=== PATIENT | female | born 1935 | race Caucasian/White ===

== ENCOUNTER → 2016-08-06 | Outpatient (REF) | payer MEDICARE, OTHER ==
[2016-08-06 13:03] LABS: EOS # 0.2 K/mm3 (0.0-0.50); EOS % 3.3 % (0.0-3.0); LARGE UNSTAINED CELL # 0.1 K/mm3 (0.0-0.4); LARGE UNSTAINED CELL % 1.7 % (0.0-4.0); LYMPH # 1.8 K/mm3 (1.5-4.5); MEAN CORPUSCULAR VOLUME 97.1 fl (80.0-96.0); MONO # 0.3 K/mm3 (0.0-0.8); MONO % 5.6 % (0.0-5.0); NEUTROPHILS # 2.3 K/mm3 (1.8-7.7); NEUTROPHILS % 50.4 % (36.0-66.0); PLATELET COUNT, AUTOMATED 175 k/mm3 (150-450); RED CELL DISTRIBUTION WIDTH 13.2 % (11.5-14.5); WHITE BLOOD COUNT 4.5 K/mm3 (4.0-10.0)
[2016-08-06 13:33] LABS: ALBUMIN 3.8 GM/DL (3.2-5.2); ALBUMIN/GLOBULIN RATIO 1.31 (1.00-1.93); ALKALINE PHOSPHATASE 73 U/L (45-117); ALT/SGPT 33 U/L (12-78); ANION GAP 9 MEQ/L (8-16); AST/SGOT 19 U/L (15-37); BILIRUBIN,DIRECT 0.4 MG/DL (0.0-0.2); BILIRUBIN,TOTAL 1.7 MG/DL (0.2-1.0); BLOOD UREA NITROGEN 12 MG/DL (7-18); CALCIUM LEVEL 8.7 MG/DL (8.8-10.2); CARBON DIOXIDE LEVEL 25 MEQ/L (21-32); CHLORIDE LEVEL 108 MEQ/L (98-107); CHOLESTEROL LEVEL 135 MG/DL (<200); CREATININE FOR GFR 0.69 MG/DL (0.55-1.02); GLOMERULAR FILTRATION RATE > 60.0 (>32); GLUCOSE, FASTING 98 MG/DL (83-110); MAGNESIUM LEVEL 2.1 MG/DL (1.8-2.4); POTASSIUM SERUM 3.9 MEQ/L (3.5-5.1); SODIUM LEVEL 142 MEQ/L (136-145); TOTAL PROTEIN 6.7 GM/DL (6.4-8.2); TRIGLYCERIDES LEVEL 158 MG/DL (<150)
== END ==
LOC: M LABDRAW1 12:15
PROVIDERS: ATTEND Internal Medicine
DX: I10 Essential (primary) hypertension (principal); E78.00 Pure hypercholesterolemia, unspecified; R73.09 Other abnormal glucose

== ENCOUNTER → 2016-11-04 | Outpatient (REF) | payer MEDICARE, OTHER ==
[2016-11-04 17:34] LABS: BLOOD UREA NITROGEN 13 MG/DL (7-18); CREATININE FOR GFR 0.69 MG/DL (0.55-1.02); GLOMERULAR FILTRATION RATE > 60.0 (>32)
== END ==
LOC: M LABDRAW1 15:52
PROVIDERS: ATTEND Psychiatry & Neurology Neurology
DX: I10 Essential (primary) hypertension (principal); E55.9 Vitamin D deficiency, unspecified

== ENCOUNTER → 2017-01-14 | Outpatient (REF) | payer MEDICARE, OTHER ==
[2017-01-14 12:23] LABS: BASO # 0.1 10^3/uL (0.0-0.2); BASO % 1.2 % (0.0-1.0); EOS # 0.2 10^3/uL (0.0-0.50); EOS % 3.9 % (0.0-3.0); IMMATURE GRANULOCYTE % 0.2 % (0-0); MEAN CORPUSCULAR HEMOGLOBIN 32.4 pg (27.0-33.0); MEAN CORPUSCULAR HGB CONC 33.7 g/dl (32.0-36.5); MEAN CORPUSCULAR VOLUME 96.2 fl (80.0-96.0); MONO # 0.3 10^3/uL (0.0-0.8); MONO % 7.6 % (0.0-5.0); NEUTROPHILS # 1.8 10^3/uL (1.8-7.7); NEUTROPHILS % 42.1 % (36.0-66.0); PLATELET COUNT, AUTOMATED 157 10^3/uL (150-450); RED CELL DISTRIBUTION WIDTH 12.8 % (11.5-14.5); WHITE BLOOD COUNT 4.3 10^3/uL (4.0-10.0)
[2017-01-14 12:40] LABS: PLT CLUMPS? POS FLAG; POS COUNT POS FLAG
[2017-01-14 13:25] LABS: ALBUMIN 3.8 GM/DL (3.2-5.2); ALBUMIN/GLOBULIN RATIO 1.06 (1.00-1.93); ALKALINE PHOSPHATASE 67 U/L (45-117); ALT/SGPT 22 U/L (12-78); ANION GAP 6 MEQ/L (8-16); AST/SGOT 16 U/L (15-37); BILIRUBIN,TOTAL 1.5 MG/DL (0.2-1.0); BLOOD UREA NITROGEN 15 MG/DL (7-18); CALCIUM LEVEL 9.4 MG/DL (8.8-10.2); CARBON DIOXIDE LEVEL 27 MEQ/L (21-32); CHLORIDE LEVEL 109 MEQ/L (98-107); CHOLESTEROL LEVEL 141 MG/DL (<200); CREATININE FOR GFR 0.67 MG/DL (0.55-1.02); GLOMERULAR FILTRATION RATE > 60.0 (>32); GLUCOSE, FASTING 92 MG/DL (83-110); SODIUM LEVEL 142 MEQ/L (136-145); TOTAL PROTEIN 7.4 GM/DL (6.4-8.2); TRIGLYCERIDES LEVEL 158 MG/DL (<150)
== END ==
LOC: M LABDRAW1 09:39
PROVIDERS: ATTEND Internal Medicine
DX: E78.00 Pure hypercholesterolemia, unspecified (principal); E80.7 Disorder of bilirubin metabolism, unspecified; I10 Essential (primary) hypertension; M19.90 Unspecified osteoarthritis, unspecified site; Z79.899 Other long term (current) drug therapy

== ENCOUNTER → 2017-08-24 | Outpatient (REF) | payer MEDICARE, OTHER ==
[2017-08-24 12:41] LABS: BASO # 0.1 10^3/uL (0.0-0.2); BASO % 1.4 % (0.0-1.0); EOS # 0.1 10^3/uL (0.0-0.50); EOS % 2.1 % (0.0-3.0); HEMOGLOBIN 14.8 g/dl (12.0-15.5); IMMATURE GRANULOCYTE % 0.2 % (0-3.0); LYMPH # 1.6 10^3/uL (1.5-4.5); LYMPH % 38.4 % (24.0-44.0); MEAN CORPUSCULAR HEMOGLOBIN 31.9 pg (27.0-33.0); MEAN CORPUSCULAR HGB CONC 33.6 g/dl (32.0-36.5); MEAN CORPUSCULAR VOLUME 94.8 fl (80.0-96.0); MONO # 0.3 10^3/uL (0.0-0.8); MONO % 6.4 % (0.0-5.0); NEUTROPHILS # 2.2 10^3/uL (1.8-7.7); NEUTROPHILS % 51.5 % (36.0-66.0); PLATELET COUNT, AUTOMATED 165 10^3/uL (150-450); RED BLOOD COUNT 4.64 10^6/uL (4.00-5.40); RED CELL DISTRIBUTION WIDTH 13.2 % (11.5-14.5); WHITE BLOOD COUNT 4.2 10^3/uL (4.0-10.0)
[2017-08-24 12:51] LABS: AMORPHOUS SEDIMENT SMALL (NEGATIVE); APPEARANCE, URINE CLOUDY (CLEAR); BACTERIA, URINE AUTO 1+ (NEGATIVE); BILIRUBIN, URINE AUTO NEGATIVE (NEGATIVE); BLOOD, URINE BLOOD NEGATIVE (NEGATIVE); COLOR, URINE YELLOW (YELLOW); GLUCOSE, URINE (UA) AUTO NEGATIVE (NEGATIVE); KETONE, URINE AUTO NEGATIVE (NEGATIVE); LEUKOCYTE ESTERASE, URINE AUTO TRACE (NEGATIVE); MUCUS, URINE SMALL (NEGATIVE); NITRITE, URINE AUTO POSITIVE (NEGATIVE); PROTEIN, URINE AUTO NEGATIVE (NEGATIVE); RBC, URINE AUTO 3 /HPF (0-3); SQUAMOUS EPITHELIAL CELL UR AU 0 /HPF (0-6); UROBILINOGEN, URINE AUTO 0.2 mg/dL (0.0-2.0); WBC, URINE AUTO 8 /HPF (0-3)
[2017-08-24 17:49] LABS: ALBUMIN 4.1 GM/DL (3.2-5.2); ALBUMIN/GLOBULIN RATIO 1.11 (1.00-1.93); ALKALINE PHOSPHATASE 64 U/L (45-117); ALT/SGPT 25 U/L (12-78); ANION GAP 7 MEQ/L (8-16); AST/SGOT 20 U/L (7-37); BILIRUBIN,DIRECT 0.4 MG/DL (0.0-0.2); BILIRUBIN,TOTAL 2.6 MG/DL (0.2-1.0); BLOOD UREA NITROGEN 11 MG/DL (7-18); CALCIUM LEVEL 9.1 MG/DL (8.8-10.2); CARBON DIOXIDE LEVEL 25 MEQ/L (21-32); CHLORIDE LEVEL 109 MEQ/L (98-107); CHOLESTEROL LEVEL 163 MG/DL (<200); CREATININE FOR GFR 0.63 MG/DL (0.55-1.30); ESTIMATED AVERAGE GLUCOSE 128 MG/DL (60-110); GLOMERULAR FILTRATION RATE > 60.0 (>32); GLUCOSE, FASTING 116 MG/DL (70-100); HDL CHOLESTEROL 58 MG/DL (>40); HEMOGLOBIN A1c 6.1 %; LDL CHOLESTEROL 69.2 MG/DL (<100); MAGNESIUM LEVEL 2.3 MG/DL (1.8-2.4); NON-HDL-C 105 MG/DL; POTASSIUM SERUM 4.1 MEQ/L (3.5-5.1); SODIUM LEVEL 141 MEQ/L (136-145); TOTAL PROTEIN 7.8 GM/DL (6.4-8.2); TRIGLYCERIDES LEVEL 179 MG/DL (<150)
[2017-08-24 21:10] LABS: POS COUNT POS FLAG
== END ==
LOC: M LABDRAW1 11:41
DX: R73.09 Other abnormal glucose (principal); I10 Essential (primary) hypertension; E78.00 Pure hypercholesterolemia, unspecified; E80.7 Disorder of bilirubin metabolism, unspecified; M81.0 Age-related osteoporosis without current pathological fracture
CPT/HCPCS: 83735

== ENCOUNTER → 2017-12-21 | Outpatient (REF) | payer MEDICARE, OTHER ==
[2017-12-21 12:18] LABS: BASO # 0.1 10^3/uL (0.0-0.2); BASO % 1.2 % (0.0-1.0); EOS # 0.1 10^3/uL (0.0-0.50); EOS % 2.7 % (0.0-3.0); HEMATOCRIT 43.1 % (36.0-47.0); HEMOGLOBIN 14.3 g/dl (12.0-15.5); LYMPH # 1.5 10^3/uL (1.5-4.5); LYMPH % 35.9 % (24.0-44.0); MEAN CORPUSCULAR HEMOGLOBIN 32.6 pg (27.0-33.0); MEAN CORPUSCULAR HGB CONC 33.2 g/dl (32.0-36.5); MEAN CORPUSCULAR VOLUME 98.4 fl (80.0-96.0); MONO # 0.4 10^3/uL (0.0-0.8); MONO % 8.5 % (0.0-5.0); NEUTROPHILS # 2.1 10^3/uL (1.8-7.7); NEUTROPHILS % 51.7 % (36.0-66.0); PLATELET COUNT, AUTOMATED 129 10^3/uL (150-450); RED BLOOD COUNT 4.38 10^6/uL (4.00-5.40); RED CELL DISTRIBUTION WIDTH 12.9 % (11.5-14.5); WHITE BLOOD COUNT 4.1 10^3/uL (4.0-10.0)
[2017-12-21 12:36] LABS: POS COUNT POS FLAG
[2017-12-21 17:59] LABS: ALKALINE PHOSPHATASE 63 U/L (45-117); ALT/SGPT 25 U/L (12-78); ANION GAP 9 MEQ/L (8-16); AST/SGOT 19 U/L (7-37); BILIRUBIN,TOTAL 1.7 MG/DL (0.2-1.0); BLOOD UREA NITROGEN 14 MG/DL (7-18); CALCIUM LEVEL 9.7 MG/DL (8.8-10.2); CARBON DIOXIDE LEVEL 24 MEQ/L (21-32); CHLORIDE LEVEL 111 MEQ/L (98-107); CREATININE FOR GFR 0.61 MG/DL (0.55-1.30); GLOMERULAR FILTRATION RATE > 60.0 (>32); GLUCOSE, FASTING 100 MG/DL (70-100); POTASSIUM SERUM 4.5 MEQ/L (3.5-5.1); SODIUM LEVEL 144 MEQ/L (136-145)
[2017-12-21 18:00] LABS: ALBUMIN/GLOBULIN RATIO 1.25 (1.00-1.93); BILIRUBIN,DIRECT 0.3 MG/DL (0.0-0.2); CHOLESTEROL LEVEL 166 MG/DL (<200); CHOLESTEROL RISK RATIO 3.254 (<5); HDL CHOLESTEROL 51 MG/DL (>40); LDL CHOLESTEROL 71 MG/DL (<100); MAGNESIUM LEVEL 2.4 MG/DL (1.8-2.4); NON-HDL-C 115 MG/DL; TOTAL PROTEIN 7.2 GM/DL (6.4-8.2); TRIGLYCERIDES LEVEL 220 MG/DL (<150)
== END ==
LOC: M LABDRAW1 09:47
DX: E78.00 Pure hypercholesterolemia, unspecified (principal); D64.9 Anemia, unspecified; I10 Essential (primary) hypertension; E83.41 Hypermagnesemia
CPT/HCPCS: 83735

== ENCOUNTER → 2018-08-22 | Outpatient (REF) | payer MEDICARE, OTHER ==
[2018-08-22 12:03] LABS: BASO # 0.1 10^3/uL (0.0-0.2); BASO % 1.7 % (0.0-1.0); EOS # 0.1 10^3/uL (0.0-0.50); EOS % 2.6 % (0.0-3.0); HEMATOCRIT 42.2 % (36.0-47.0); HEMOGLOBIN 14.3 g/dl (12.0-15.5); LYMPH # 1.5 10^3/uL (1.5-4.5); LYMPH % 32.6 % (24.0-44.0); MEAN CORPUSCULAR HEMOGLOBIN 33.4 pg (27.0-33.0); MEAN CORPUSCULAR HGB CONC 33.9 g/dl (32.0-36.5); MEAN CORPUSCULAR VOLUME 98.6 fl (80.0-96.0); MONO # 0.3 10^3/uL (0.0-0.8); MONO % 5.7 % (0.0-5.0); NEUTROPHILS # 2.6 10^3/uL (1.8-7.7); NEUTROPHILS % 57.2 % (36.0-66.0); PLATELET COUNT, AUTOMATED 172 10^3/uL (150-450); RED BLOOD COUNT 4.28 10^6/uL (4.00-5.40); WHITE BLOOD COUNT 4.6 10^3/uL (4.0-10.0)
[2018-08-22 12:13] LABS: ALBUMIN 3.7 GM/DL (3.2-5.2); ALT/SGPT 22 U/L (12-78); BILIRUBIN,DIRECT 0.4 MG/DL (0.0-0.2); BILIRUBIN,TOTAL 2.3 MG/DL (0.2-1.0); BLOOD UREA NITROGEN 11 MG/DL (7-18); CALCIUM LEVEL 8.9 MG/DL (8.8-10.2); CARBON DIOXIDE LEVEL 26 MEQ/L (21-32); CHLORIDE LEVEL 105 MEQ/L (98-107); CHOLESTEROL LEVEL 154 MG/DL (<200); CHOLESTEROL RISK RATIO 3.019 (<5); CPK CREATINE PHOSPHOKINASE 109 U/L (26-192); CREATININE FOR GFR 0.68 MG/DL (0.55-1.30); GLOMERULAR FILTRATION RATE > 60.0 (>32); GLUCOSE, FASTING 98 MG/DL (70-100); HDL CHOLESTEROL 51 MG/DL (>40); LDL CHOLESTEROL 63 MG/DL (<100); MAGNESIUM LEVEL 2.3 MG/DL (1.8-2.4); NON-HDL-C 103 MG/DL; POTASSIUM SERUM 4.3 MEQ/L (3.5-5.1); SODIUM LEVEL 140 MEQ/L (136-145); TOTAL PROTEIN 7.4 GM/DL (6.4-8.2); TRIGLYCERIDES LEVEL 202 MG/DL (<150)
[2018-08-22 16:30] LABS: APPEARANCE, URINE CLOUDY (CLEAR); BACTERIA, URINE AUTO 3+ (NEGATIVE); BILIRUBIN, URINE AUTO NEGATIVE (NEGATIVE); BLOOD, URINE BLOOD NEGATIVE (NEGATIVE); COLOR, URINE YELLOW (YELLOW); GLUCOSE, URINE (UA) AUTO NEGATIVE (NEGATIVE); KETONE, URINE AUTO NEGATIVE (NEGATIVE); LEUKOCYTE ESTERASE, URINE AUTO 1+ (NEGATIVE); MUCUS, URINE SMALL (NEGATIVE); NITRITE, URINE AUTO POSITIVE (NEGATIVE); PROTEIN, URINE AUTO NEGATIVE (NEGATIVE); RBC, URINE AUTO 2 /HPF (0-3); SPECIFIC GRAVITY URINE AUTO 1.013 (1.002-1.035); SQUAMOUS EPITHELIAL CELL UR AU 0 /HPF (0-6); UROBILINOGEN, URINE AUTO 0.2 mg/dL (0.0-2.0); WBC, URINE AUTO 31 /HPF (0-3)
== END ==
LOC: M LABDRAW1 11:39
PROVIDERS: ATTEND Internal Medicine
DX: G35 Multiple sclerosis (principal); E80.4 Gilbert syndrome; I10 Essential (primary) hypertension; E83.41 Hypermagnesemia; E03.9 Hypothyroidism, unspecified; E78.00 Pure hypercholesterolemia, unspecified; R32 Unspecified urinary incontinence

== ENCOUNTER → 2018-12-18 | Outpatient (REF) | payer MEDICARE, OTHER ==
[2018-12-18 12:48] LABS: ALBUMIN 3.8 GM/DL (3.2-5.2); ALT/SGPT 22 U/L (12-78); BILIRUBIN,DIRECT 0.3 MG/DL (0.0-0.2); BILIRUBIN,TOTAL 1.6 MG/DL (0.2-1.0); BLOOD UREA NITROGEN 13 MG/DL (7-18); CALCIUM LEVEL 9.5 MG/DL (8.8-10.2); CARBON DIOXIDE LEVEL 24 MEQ/L (21-32); CHLORIDE LEVEL 109 MEQ/L (98-107); CREATININE FOR GFR 0.67 MG/DL (0.55-1.30); GLOMERULAR FILTRATION RATE > 60.0 (>32); GLUCOSE, FASTING 94 MG/DL (70-100); POTASSIUM SERUM 4.4 MEQ/L (3.5-5.1); SODIUM LEVEL 141 MEQ/L (136-145); TOTAL PROTEIN 6.9 GM/DL (6.4-8.2)
[2018-12-18 12:55] LABS: BASO # 0.1 10^3/uL (0.0-0.2); BASO % 1.1 % (0.0-1.0); EOS # 0.1 10^3/uL (0.0-0.5); EOS % 2.4 % (0.0-3.0); HEMATOCRIT 39.2 % (36.0-47.0); HEMOGLOBIN 13.2 g/dl (12.0-15.5); LYMPH # 2.1 10^3/uL (1.5-5.0); LYMPH % 45.8 % (24.0-44.0); MEAN CORPUSCULAR HEMOGLOBIN 32.8 pg (27.0-33.0); MEAN CORPUSCULAR HGB CONC 33.7 g/dl (32.0-36.5); MEAN CORPUSCULAR VOLUME 97.3 fl (80.0-96.0); MONO # 0.4 10^3/uL (0.0-0.8); MONO % 7.7 % (0.0-5.0); PLATELET COUNT, AUTOMATED 164 10^3/uL (150-450); RED BLOOD COUNT 4.03 10^6/uL (4.00-5.40); WHITE BLOOD COUNT 4.5 10^3/uL (4.0-10.0)
== END ==
LOC: M LABDRAW1 11:40
PROVIDERS: ATTEND Internal Medicine
DX: I10 Essential (primary) hypertension (principal)

== ENCOUNTER 2020-01-08 08:15 | Inpatient (IN) | payer MEDICARE, OTHER ==
[2020-01-08] VITALS (15 sets, daily range): BP systolic 68–122; BP diastolic 39–70
[~2020-01-08] VITALS: Ht 157.5 cm; Wt 74.0 kg
[~2020-01-08 08:15] MED LIST: PHENYLephrine HCL 500 MCG/5 ML (100MCG/ML) SYRINGE (J2370) ONE; ePHEDrine SULFATE 25 MG/5 ML(5MG/ML) SYRINGE ONE
--- NOTE | 2020-01-08 08:59 | REPVR ---
PROCEDURE INFORMATION: Exam: XR Chest, 1 View Exam date and time: 01/08/2020 8:44 AM Age: 84 years old Clinical indication: Other: General weekness; Additional info: Trauma TECHNIQUE: Imaging protocol: XR of the chest Views: 1 view. COMPARISON: No relevant prior studies available. FINDINGS: Lungs: Low lung volumes with mild bibasilar atelectasis. No consolidation. Pleural space: No significant pleural effusions. No pneumothorax. Heart/Mediastinum: Cardiac size is normal. Thoracic atherosclerosis. Bones/joints: Osteopenia. Degenerative changes. No acute fracture. Soft tissues: Surgical clips right axilla. Marcus right upper quadrant. IMPRESSION: Hypoventilatory change with mild bibasilar atelectasis. Electronically signed by: Jose Almonte On 01/08/2020 08:59:11 AM
[2020-01-08] MEDS ORDERED: NS 500 ML IV ONE (09:15)
[2020-01-08 09:24] LABS: HEMATOCRIT 39.4 % (36.0-47.0); HEMOGLOBIN 12.8 g/dl (12.0-15.5); MEAN CORPUSCULAR HEMOGLOBIN 32.7 pg (27.0-33.0); MEAN CORPUSCULAR HGB CONC 32.5 g/dl (32.0-36.5); MEAN CORPUSCULAR VOLUME 100.8 fl (80.0-96.0); PLATELET COUNT, AUTOMATED 100 10^3/uL (150-450); RED BLOOD COUNT 3.91 10^6/uL (4.00-5.40); WHITE BLOOD COUNT 16.1 10^3/uL (4.0-10.0)
[2020-01-08 09:52] LABS: LYMPHOCYTES 5 % (16-44); METAMYELOCYTES 1 % (0-0); MONOCYTES 2 % (0-5); NEUTROPHILS 80 % (28-66)
[2020-01-08 09:54] LABS: PLATELET ESTIMATE DECREASED (NORMAL)
[2020-01-08 10:00] LABS: ALBUMIN 3.3 GM/DL (3.2-5.2); BILIRUBIN,DIRECT 0.6 MG/DL (0.0-0.2); BILIRUBIN,TOTAL 2.9 MG/DL (0.2-1.0); CALCIUM LEVEL 9.9 MG/DL (8.8-10.2); CK-MB VALUE MASS 5.8 NG/ML (<3.6); CREATININE FOR GFR 1.21 MG/DL (0.55-1.30); GLOMERULAR FILTRATION RATE 45.1 (>32); MB/CK RELATIVE INDEX 0.71 (< OR =4); POTASSIUM SERUM 3.7 MEQ/L (3.5-5.1); TOTAL PROTEIN 7.2 GM/DL (6.4-8.2); TROPONIN I 0.25 NG/ML (< 0.10)
[2020-01-08 10:03] LABS: DOHLE BODIES 1+
[2020-01-08] MEDS ORDERED: cefTRIAXone SOD 2 GM in D5W MINI-BAG PLUS 50 ML IV ONE (10:15)
[2020-01-08] MEDS ORDERED: NS 1,000 ML IV ONE (10:15)
[2020-01-08] MEDS ORDERED: PRAV20TA2 PO (10:51)
[2020-01-08] MEDS ORDERED: TRAV04OPD OU (10:51)
[2020-01-08] MEDS ORDERED: ASPI81TA86 PO (10:51)
[2020-01-08] MEDS ORDERED: AMLO1TAB24 PO (10:51)
[2020-01-08] MEDS ORDERED: DORZ2SOL5 OU (10:51)
[2020-01-08] MEDS ORDERED: POTA10CA32 PO (10:51)
[2020-01-08] MEDS ORDERED: GABA-843 PO (10:51)
[2020-01-08] MEDS ORDERED: LOSA100T50 PO (10:51)
[2020-01-08] MEDS ORDERED: OXYB5TAB10 PO (10:51)
[2020-01-08] MEDS ORDERED: LOMO2.5T PO (10:51)
[2020-01-08] MEDS ORDERED: NITROGLYCERIN 2% OINT 1 GM *U/D* PKT As Ordered ONE (12:14)
[2020-01-08] MEDS ORDERED: NITROGLYCERIN 2% OINT 1 GM *U/D* PKT TOP ONE (12:15)
[2020-01-08] MEDS ORDERED: ISOVUE-370 76% 100ML VIAL As Ordered ONE (12:38)
[2020-01-08] MEDS ORDERED: NS 1,000 ML IV SCH (12:45)
[2020-01-08] MEDS ORDERED: NS 1,500 ML IV ONE (12:45)
--- NOTE | 2020-01-08 12:48 | ECGEPIP ---
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
[2020-01-08] MEDS ORDERED: PIPERACILLIN/TAZOBACTAM SOD 4.5 GM in D5W MINI-BAG PLUS 50 ML IV ONE (13:00)
--- NOTE | 2020-01-08 13:10 | REPVR ---
PROCEDURE INFORMATION: Exam: CT Angiography Chest With Contrast Exam date and time: 01/08/2020 12:40 PM Age: 84 years old Clinical indication: Shortness of breath; Additional info: R/O pe in setting of worsening respiratory status TECHNIQUE: Imaging protocol: Computed tomographic angiography of the chest with intravenous contrast. 3D rendering (Not supervised by radiologist): MIP and/or 3D reconstructed images were created by the technologist. Radiation optimization: All CT scans at this facility use at least one of these dose optimization techniques: automated exposure control; mA and/or kV adjustment per patient size (includes targeted exams where dose is matched to clinical indication); or iterative reconstruction. Contrast material: ISOVUE 370; Contrast volume: 100 ml; Contrast route: INTRAVENOUS (IV); COMPARISON: CR Chest, 1 view 01/08/2020 8:29 AM FINDINGS: Limitations: Variable motion, moderate inferiorly. Pulmonary arteries: No definite pulmonary embolus is identified, allowing for the motion. Artifact particularly degrades evaluation in the right lower lobe. Aorta: The thoracic aorta is nonaneurysmal. Atherosclerotic vascular calcifications are noted. Lungs: Mild dependent atelectasis and scattered scarring is present. The right middle lobe is partially collapsed, and there may be some airspace disease here. Pleural space: Unremarkable. No pneumothorax. No pleural effusion. Heart: Unremarkable. No cardiomegaly. No pericardial effusion. Lymph nodes: Unremarkable. No enlarged lymph nodes. Bones/joints: Degenerative changes involve the spine and shoulders. Soft tissues: Unremarkable. IMPRESSION: 1. No definite pulmonary embolus identified, allowing for motion which particularly affects evaluation of the right lower lobe. Depending on clinical suspicion, may consider followup attempt at CT or correlation with VQ scan. 2. Partial collapse of the right middle lobe with potential airspace disease relating to pneumonia. COMMENTS: Dedicated abdominal CT has been performed, and findings below the diaphragm will be reported separately. Electronically signed by: Richard Lynch On 01/08/2020 13:10:06 PM
--- NOTE | 2020-01-08 13:19 | REPVR ---
PROCEDURE INFORMATION: Exam: CT Abdomen And Pelvis With Contrast Exam date and time: 01/08/2020 12:40 PM Age: 84 years old Clinical indication: Bloating; Additional info: R/O mesenteric ischemia w/ abd bloating TECHNIQUE: Imaging protocol: Computed tomography of the abdomen and pelvis with intravenous contrast. Radiation optimization: All CT scans at this facility use at least one of these dose optimization techniques: automated exposure control; mA and/or kV adjustment per patient size (includes targeted exams where dose is matched to clinical indication); or iterative reconstruction. Contrast material: ISOVUE 370; Contrast volume: 100 ml; Contrast route: INTRAVENOUS (IV); COMPARISON: Abdomen, limited US 08/22/2014 9:14 AM FINDINGS: Liver: The liver demonstrates mild intrahepatic biliary ductal dilatation and contains a 13 mm cyst in its right lobe inferiorly. It appears otherwise unremarkable. Gallbladder and bile ducts: The gallbladder again contains stones, and is now seen to have calcifications along its wall. The common bile duct is prominent in caliber, measuring up to 2.2 cm, previously also dilated up to 1.8 cm. Pancreas: The pancreas demonstrates some fatty atrophy. It appears otherwise unremarkable. Spleen: Normal. No splenomegaly. Adrenals: Normal. No mass. Kidneys and ureters: The kidneys demonstrate cortical thinning. There is parapelvic cyst formation bilaterally, along with a 2 cm parenchymal cyst on the left. The left kidney also demonstrates mild hydronephrosis are, and there is a 9 x 5 x 3 mm stone at the ureteropelvic junction. The left nephrogram is mildly delayed, and there is mild asymmetric left perinephric stranding as well. Stomach and bowel: The unopacified small bowel is not significantly distended to suggest obstruction. No significant bowel wall thickening is evident. The large bowel is grossly unremarkable in appearance. Appendix: The appendix is not identified, but there are no inflammatory changes in its expected region. Intraperitoneal space: No free air or significant free fluid. Vasculature: The abdominal aorta is nonaneurysmal. Atherosclerotic vascular calcifications are noted. Lymph nodes: Unremarkable. No enlarged lymph nodes. Urinary bladder: The urinary bladder contains small gas. Reproductive: There has been hysterectomy. No gross adnexal abnormality is apparent, but ultrasound would be more appropriate in this regard. Bones/joints: Degenerative changes involve the spine and hips. There is a grade 1 spondylolisthesis at L4-L5, where there appears to have been right-sided laminotomy. Soft tissues: Surgical sutures are present along the anterior abdominal wall, the musculature of which is thinned. IMPRESSION: 1. Mild left-sided hydronephrosis with mild delay of the nephrogram secondary to a 9 mm stone at the ureteropelvic junction. 2. Cholelithiasis, as on 08/22/14, with calcifications in the gallbladder wall, which may be associated with increased risk of neoplasm. 3. Mildly increased extrahepatic biliary ductal dilatation, now with mild intrahepatic biliary ductal dilatation evident. Suggest dedicated evaluation for possible biliary obstruction. 4. Small gas in the urinary bladder, presumably relating to a recent catheterization. Confirm clinically. COMMENTS: See separate chest CT report for findings above the diaphragm. Electronically signed by: Richard Lynch On 01/08/2020 13:19:41 PM
--- NOTE | 2020-01-08 13:38 | REPVR ---
PROCEDURE INFORMATION: Exam: XR Chest, 1 View Exam date and time: 01/08/2020 1:02 PM Age: 84 years old Clinical indication: Condition or disease; Other: Rhabdomyosis, UTI, SOB; Additional info: Shortness of breath TECHNIQUE: Imaging protocol: XR of the chest Views: 1 view. COMPARISON: CR Chest, 1 view 01/08/2020 8:29 AM FINDINGS: Tubes, catheters and devices: Surgical clips again overlie the right axilla.Degenerative changes again involve the spine and shoulders. Lungs: There is mildly increasing atelectasis or infiltrate at the right base. Some streaky atelectasis is present at the left base. Pleural space: Unremarkable. No pleural effusion. No pneumothorax. Heart/Mediastinum: The cardiomediastinal silhouette is fairly stable in appearance. Bones/joints: Unremarkable. IMPRESSION: Mildly increasing right basilar atelectasis or infiltrate as compared with earlier the same day. Electronically signed by: Richard Lynch On 01/08/2020 13:38:03 PM
[2020-01-08 13:56] LABS: CK-MB VALUE MASS 4.4 NG/ML (<3.6); MB/CK RELATIVE INDEX 0.65 (< OR =4); TROPONIN I 0.16 NG/ML (< 0.10)
[2020-01-08] MEDS ORDERED: SODIUM CHLORIDE 0.9% 1000ML IV ONE (15:00)
[2020-01-08] MEDS ORDERED: VANCOMYCIN HCL 1,000 MG, VIAL MATE ADAPTER 1 EACH in D5W 250 ML IV SCH (16:00)
[2020-01-08] MEDS ORDERED: ACETAMINOPHEN 650 MG SUPP PR ONE (16:00)
[2020-01-08] MEDS ORDERED: VANCOMYCIN HCL 500 MG in D5W MINI-BAG PLUS 100 ML IV ONE (17:00)
[2020-01-08] MEDS ORDERED: VANCOMYCIN HCL 1,000 MG, VIAL MATE ADAPTER 1 EACH in D5W 250 ML IV ONE (17:00)
[2020-01-08] MEDS ORDERED: fentaNYL 100 MCG/2 ML INJECTION (J3010) As Ordered ONE (17:22)
[2020-01-08] MEDS ORDERED: LIDOCAINE 2% 100MG/5ML SDV (FOR ANES.) As Ordered ONE (17:22)
[2020-01-08] MEDS ORDERED: propofoL 200 MG/20 ML VIAL As Ordered ONE (17:22)
[2020-01-08] MEDS ORDERED: CONRAY-60 60% 50ML VIAL (Q9961) As Ordered ONE (17:26)
--- NOTE | 2020-01-08 17:29 | HPEPDOC ---
[facility] Medical History & Physical Date of Admission Jan 08, 2020 Date of Service: Jan 08, 2020 Primary Care Physician: Sherri Rojas Attending Physician: PRANAY MC MD History and Physical CHIEF COMPLAINT: Weakness. HISTORY OF PRESENT ILLNESS: Mrs. Samuels is an 84 yo F with hx MS complicated by bladder dysfunction and R-sided weakness that presented to the ED via EMS after being on the floor at home and unable to get up even with the help of her . History is obtained mainly from ED staff and the patient's daughter, who is present on exam. According to EMS, pt was sleeping on the floor and somewhat difficult to arouse. Her blood glucose at that time was 197. The pt stated that for the past 2 days she has been feeling weak like her MS was "acting up." Normally, when she experiences weakness she says that she lays down to rest and the weakness improves. The pt admits to purposely sleeping on the floor (which is not unusual for her). On arrival to the ED, workup was significant for UA with positive nitrites and leukocyte esterase concerning for UTI . During examination, her mental status and respiratory status abruptly declined around 1230 on 01/07. She was found to be progressively hypotensive with MAP <70. PAST MEDICAL HISTORY: 1. Multiple sclerosis, first diagnosed 25 years ago. Unk treatment 2. Bladder dysfunction 2/2 multiple sclerosis 3. HTN 4. HLD 5. Osteoporosis 6. Hx of R breast CA s/p lumpectomy, chemotherapy, and radiation PAST SURGICAL HISTORY: 1. Lumpectomy for R breast carcinoma 2. Hysterectomy 3. Tonsillectomy 4. Appendectomy SOCIAL HISTORY: Marital status: . 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 REVIEW OF SYSTEMS: Unable to obtain ROS due to patient's declining mental status HOME MEDICATIONS: Please see below. PHYSICAL EXAMINATION: VITAL SIGNS: Temperature 102.2, pulse 127, respiratory rate 28, blood pressure 103/71, pulse oximetry 97% on 2L nasal cannula. GENERAL APPEARANCE: Pt appears lying in bed, working very hard to breath using accessory muscles, and is in mild distress. HEENT: NC, AT, pupils equal, pupils reactive to light but sluggish CARDIOVASCULAR: regular rhythm, tachycardic, no murmurs, rubs, or gallops. LUNGS: CTAB ABDOMEN: soft, obese, distended in RUQ and LUQ, tympanic, nontender, bowel sounds hypoactive. MUSCULOSKELETAL: moving all extremities well EXTREMITIES: 3+ pitting edema R LE up to the knee, 2+ pitting edema L LE up to knee NEUROLOGICAL: oriented to self only, unable to follow commands, not answering questions appropriately. PSYCHIATRIC: unable to examine LABORATORY DATA: See below. IMAGING: -CXR 01/07 @ 0823: Impression "Hypoventilatory change with mild bibasilar atelectasis." -CXR 01/07 @ 1217: Impression "Mildly increasing right basilar atelectasis or infiltrate as compared with earlier the same day." -CTA 01/07 @ 1230: Impression "1. No definite pulmonary embolus identified, allowing for motion which particularly affects evaluation of the right lower lobe. Depending on clinical suspicion, may consider followup attempt at CT or correlation with VQ scan. 2. Partial collapse of the right middle lobe with potential airspace disease relating to pneumonia." -CT ABD/PELVIS 01/07 @ 1230: Impression "1. Mild left-sided hydronephrosis with mild delay of the nephrogram secondary to a 9 mm stone at the ureteropelvic junction. 2. Cholelithiasis, as on 08/22/14, with calcifications in the gallbladder wall, which may be associated with increased risk of neoplasm. 3. Mildly increased extrahepatic biliary ductal dilatation, now with mild intrahepatic biliary ductal dilatation evident. Suggest dedicated evaluation for possible biliary obstruction. 4. Small gas in the urinary bladder, presumably relating to a recent catheterization. Confirm clinically." MICROBIOLOGY: Please see below. ASSESSMENT: Mrs. Samuels is an 84 yo F with a PMHx of MS complicated by bladder dysfunction, HTN, and HLD who presented to the ED complaining of a 2 day history of worsening weakness, found to have evidence of a UTI, pyelonephritis, and hydronephrosis along with mental status change, concerning for severe sepsis. PLAN: #. Severe sepsis 2/2 to pyelonephritis vs GB pathology: Pt found to be hypotensive, tachycardic, tachypneic, leukocytosis, lactic acidosis, febrile with possible source of infection. Patient does not appear to be fluid responsive at this time -Empiric broad spectrum antibiotics: Vanc and Zosyn -Pt received 1.5ml NS IV bolus, will continue for total 2200cc NS IVF -Will place central line and add pressors as needed -Blood and urine cultures are pending -Pt's breathing status improved after a few hours on BIPAP in ED, now on 2L NC -CT abd showed cholelithiasis and biliary dilation -Will order RUQ US for gallbladder pathology when stabilized, will consult ge neral surgery if needed #. Pyelonephritis 2/2 complete obstructing stone leading to severe sepsis -Consulted Urology. Appreciate recommendations #. Lactic acidosis 2/2 to severe sepsis -Lactic acid on presentation was 4.9, followup was 7.4; Will continue to trend every 6-8h #. Elevated troponin 2/2 to demand ischemia, Type II PR -Troponin of 0.25 on presentation, decreased to 0.16 on followup; will continue to trend at least 2 more -No EKG changes noted, patient denies chest pain #. Multiple sclerosis -Followup outpatient -Holding gabapentin due to sedation/confusion for now #. HTN -Holding home losartan and amlodipine due to hypotension #. Bladder dysfunction -Abreu catheter at this point for strict I&O monitoring DVT ppx: holding at this time due to possible procedure NPO for now Vital Signs Vital Signs Date Time Temp Pulse Resp B/P (MAP) Pulse Ox O2 Delivery O2 Flow Rate FiO2 01/08/20 15:00 101 76/50 (59) 95 NIPPV (BIPAP/CPAP) 01/08/20 14:15 100 01/08/20 14:00 24 01/08/20 13:00 2.0 01/08/20 12:30 102.2 Laboratory Data Labs 24H Laboratory Tests 2 01/08/20 08:28: Lactic Acid Level 4.9*H 01/08/20 08:47: Neutrophils (%) (Auto) , Nucleated Red Blood Cells % (auto) 0.1H, Neutrophils 80H, Band Neutrophils 12H, Lymphocytes (Manual) 5L, Monocytes (Manual) 2, Metamyelocytes 1H, Macrocytosis 1+, Dohle Bodies 1+, Platelet Estimate DECREASED, Anion Gap 10, Glomerular Filtration Rate 45.1, Calcium Level 9.9, To elpidio Bilirubin 2.9H, Direct Bilirubin 0.6H, Aspartate Amino Transf (AST/SGOT) 66H, Alanine Aminotransferase (ALT/SGPT) 35, Alkaline Phosphatase 82, Total Creatine Kinase 813H, Creatine Kinase MB 5.8H, Creatine Kinase MB Relative Index 0.71, Troponin I 0.25H, OU-Ept-V-Type Natriuretic Peptide 61844B, Total Protein 7.2, Albumin 3.3, Albumin/Globulin Ratio 0.8L 01/08/20 09:06: Urine Color MAGGY, Urine Appearance CLOUDYH, Urine pH 6.0, Urine Specific [place] 1.013, Urine Protein 1+H, Urine Glucose (UA) NEGATIVE, Urine Ketones TRACEH, Urine Blood 2+H, Urine Nitrite POSITIVEH, Urine Bilirubin NEGATIVE, Urine Urobilinogen 0.2, Urine Leukocyte Esterase TRACEH, Urine WBC (Auto) 16H, Urine RBC (Auto) 20H, Urine Hyaline Casts (Auto) 3, Urine Bacteria (Auto) 2+H, Urine Squamous Epithelial Cells 0, Urine Mucus (Auto) MODERATE, Urine Sperm (Auto) 01/08/20 12:57: Total Creatine Kinase 682H, Creatine Kinase MB 4.4H, Creatine Kinase MB Relative Index 0.65, Troponin I 0.16#H 01/08/20 13:46: Lactic Acid Followup at 4 Hours 7.4*H CBC/BMP Laboratory Tests 01/08/20 08:47 Microbiology Microbiology 01/08/20 Urine Culture, Received Pending 01/08/20 Blood Culture, Received Pending 01/08/20 Blood Culture, Received Pending Home Medications Scheduled Amlodipine Besylate (Amlodipine Besylate) 5 Mg Tablet, 5 MG PO QHS Aspirin (Aspir 81) 81 Mg Tablet.dr, 81 MG PO QHS Diphenoxylate HCl/Atropine (Lomotil 2.5-0.025 mg Tablet) 1 Each Tablet, 1 TAB PO DAILY Dorzolamide HCl/Timolol Maleat (Dorzolamide-Timolol Eye Drops) 10 Ml Drops, 1 DROP OU BID Gabapentin (Gabapentin) 300 Mg Capsule, 300 MG PO QHS Losartan Potassium (Losartan Potassium) 100 Mg Tablet, 100 MG PO QHS Oxybutynin Chloride (Oxybutynin Chloride) 5 Mg Tablet, 5 MG PO BID Potassium Chloride (Potassium Chloride) 10 Meq Capsule.er, 10 MEQ PO DAILY Pravastatin Sodium (Pravastatin Sodium) 20 Mg Tablet, 20 MG PO QHS Travoprost (Travatan Z) 0.004% 2.5ML Drops, 1 DROP OU QHS Allergies Coded Allergies: No Known Allergies (Verified , 11/13/02) GME ATTESTATION GME ATTESTATION My faculty preceptor for this patient encounter was physically present during the encounter and was fully available. All aspects of the patient interview, examination, medical decision making process, and medical care plan development were reviewed and approved by the faculty preceptor. The faculty preceptor is aware and concurs with the plan as stated in the body of this note and will attest to such by his/her cosignature. ATTENDING NOTE Patient was seen and examined by me personally with the residents and the students. Agree with the above assessment and plan. MARCELLA REHMAN OMS-3 Jan 08, 2020 17:29 PRANAY MC MD Jan 11, 2020 14:08
--- NOTE | 2020-01-08 17:31 | SMCUROLCON ---
Urology Consultation General Date of Consultation 01/08/20 Reason For Consultation This patient is seen for Rhabdomyoysis, Uti. History of Present Illness The patient is a [84]-year-old [lady] who was found down on the floor after an uncertain amount of time and brought to the ER where CT reveals a 9mm L UPJ stone with hydronephrosis and infected urine. In recent minutes, she has developed hypotension. Dr. Chapin asked me to see her emergently. Lactate is 7. WBC 16. Past Medical History Medical History Multiple sclerosis; Over active bladder; GERD Surgical Hstory T&A, Appey, Hysterectomy, Mastectomy Social History Social History * Smoker: non-smoker Alcohol: Denies Medications Current Medications Current Medications Medications (Trade) Dose Ordered Sig/Lorene Route PRN Reason Start Time Stop Time Status Last Admin Dose Admin Acetaminophen (Tylenol Tab) 650 mg Q6HP PRN PO PAIN / FEVER 01/08/20 22:00 Aspirin (Ecotrin) 81 mg QHS PO 01/08/20 21:00 Enoxaparin Sodium (Lovenox) 40 mg DAILY SC 01/09/20 09:00 Home Med (Med Rec Complete!) ASDIRECTED XX 01/08/20 11:00 01/08/20 10:54 DC Latanoprost (Xalatan 0.005% Op Soln) 1 drop QHS OU 01/08/20 21:00 Pantoprazole Sodium (Protonix) 40 mg DAILY IV 01/09/20 09:00 Piperacillin Sod/ Tazobactam Sod 4.5 gm/Dextrose 50 ml @ 50 mls/hr Q8H IV 01/08/20 22:00 Pravastatin Sodium (Pravachol) 20 mg QHS PO 01/08/20 21:00 Sodium Chloride 1,000 ml @ 75 mls/hr [id number] IV 01/08/20 12:45 01/08/20 14:54 DC 01/08/20 14:01 Vancomycin HCl 1000 mg/IV Miscellaneous Supplies 1 each/ Dextrose 270 ml @ 270 mls/hr Q24H IV 01/08/20 16:00 01/08/20 15:30 Allergies Allergies: Coded Allergies: No Known Allergies (Verified , 11/13/02) Review of Systems General: Reports: Chills Constitutional: Reports: Fever, Chills, Sweats ENT: Reports: Ear Pain Skin: Denies: Rash, Lesions, Jaundice, Bruising, Itching, Dry, Breakdown, Nail Changes, Other Pulmonary: Reports: Dyspnea Cardiovascular: Denies Chest Pain, Denies Palpitations, Denies Orthopnea, Denies Paroxysmal Noc. Dyspnea, Denies Edema, Denies Lt Headedness, Denies Other Symptoms Gastrointestinal: Reports: Nausea Genitourinary: Denies: Dysuria, Frequency, Incontinence, Hematuria, Retention, Other Symptoms Hematologic: Denies: Bruising, Bleeding Excessively, Petecchia, Purpura, Enlarged Lymph Nodes, Other Hematologic Endocrine: Denies: Polydipsia, Polyphagia, Polyuria, Heat Intolerance, Cold Intolerance, Other Endocrine Sx Musculoskeletal: Denies: Neck Pain, Back Pain, Shoulder Pain, Arm Pain, Hand Pain, Leg Pain, Foot Pain, Joint Pain, Muscle Pain, Spasms, Other Symptoms Neurological: Reports: Weakness, Confusion Psych: Reports: Anxiety Physical Examination General Exam: Alert, Cooperative, Mild Distress EYE EXAM: PERRLA, Conjunctiva & lids normal, EOMI ENT EXAM: Atraumatic, Mucous membr. moist/pink, Pharynx Normal Neck Exam: Supple, JVD Chest Exam: Clear to auscultation, Normal air movement Heart Exam: Tachycardic Abdomen Exam: BS Hypoactive Male Exam: Normal Genital Exam Female Exam: Nl Ext Genitalia Extremity Exam: No: Clubbing, Cyanosis, Edema, Normal Pulses, Tenderness, Swelling, Other Neuro Exam: Normal Speech Psych Exam: Other (confused) Vital Signs/I&O Vital Signs Date Time Temp Pulse Resp B/P (MAP) Pulse Ox O2 Delivery O2 Flow Rate FiO2 01/08/20 15:30 100 26 99/57 (71) 90 Room Air 01/08/20 14:15 100 01/08/20 13:00 2.0 01/08/20 12:30 102.2 Laboratory Data 24H Labs Laboratory Tests 2 01/08/20 08:28: Lactic Acid Level 4.9*H 01/08/20 08:47: Neutrophils (%) (Auto) , Nucleated Red Blood Cells % (auto) 0.1H, Neutrophils 80H, Band Neutrophils 12H, Lymphocytes (Manual) 5L, Monocytes (Manual) 2, Metamyelocytes 1H, Macrocytosis 1+, Dohle Bodies 1+, Platelet Estimate DECREASED, Anion Gap 10, Glomerular Filtration Rate 45.1, Calcium Level 9.9, Total Bilirubin 2.9H, Direct Bilirubin 0.6H, Aspartate Amino Transf (AST/SGOT) 66H, Alanine Aminotransferase (ALT/SGPT) 35, Alkaline Phosphatase 82, Total Creatine Kinase 813H, Creatine Kinase MB 5.8H, Creatine Kinase MB Relative Index 0.71, Troponin I 0.25H, ON-Rkg-Z-Type Natriuretic Peptide [id number], Total Protein 7.2, Albumin 3.3, Albumin/Globulin Ratio 0.8L 01/08/20 09:06: Urine Color MAGGY, Urine Appearance CLOUDYH, Urine pH 6.0, Urine Specific [place] 1.013, Urine Protein 1+H, Urine Glucose (UA) NEGATIVE, Urine Ketones TRACEH, Urine Blood 2+H, Urine Nitrite POSITIVEH, Urine Bilirubin NEGATIVE, Urine Urobilinogen 0.2, Urine Leukocyte Esterase TRACEH, Urine WBC (Auto) 16H, Urine RBC (Auto) 20H, Urine Hyaline Casts (Auto) 3, Urine Bacteria (Auto) 2+H, Urine Squamous Epithelial Cells 0, Urine Mucus (Auto) MODERATE, Urine Sperm (Auto) 01/08/20 12:57: Total Creatine Kinase 682H, Creatine Kinase MB 4.4H, Creatine Kinase MB Relative Index 0.65, Troponin I 0.16#H 01/08/20 13:46: Lactic Acid Followup at 4 Hours 7.4*H 01/08/20 15:46: Methicillin-Resist S.aureus DNA PCR NOT DETECTED 01/08/20 16:51: 01/08/20 17:04: CBC/BMP Laboratory Tests 01/08/20 08:47 Microbiology Microbiology 01/08/20 Urine Culture, Received Pending 01/08/20 Blood Culture, Received Pending 01/08/20 Blood Culture, Received Pending Assessment A: Septic L UPJ stone Plan P: Cysto stent placement emergently. Drums and life threatening situation d/w pt, and daughter. They wish to proceed. JC GOTTLIEB MD Jan 08, 2020 17:30
[2020-01-08] MEDS ORDERED: LIDOCAINE 2% 5ML JELLY UROJET As Ordered ONE (17:36)
[2020-01-08 17:40] LABS: CK-MB VALUE MASS 3.8 NG/ML (<3.6); MB/CK RELATIVE INDEX 0.49 (< OR =4); TROPONIN I 0.31 NG/ML (< 0.10)
[2020-01-08] MEDS ORDERED: MIDAZOLAM INJ 2MG/2ML VIAL (J2250 PER 1MG) As Ordered ONE (17:58)
--- NOTE | 2020-01-08 18:43 | ROOPDOC ---
[facility] Report Of Operation Report of Operation DATE OF PROCEDURE: 01/08/20 PREPROCEDURE DIAGNOSES: [L UPJ stone, Sepsis]. POSTPROCEDURE DIAGNOSES: [same]. PROCEDURE: [Cysto, L stent placement, kaur placement]. SURGEON: [Jc Hansen]MD SPRING FORMER HAND: , ANESTHESIA: [local/sedation]. ESTIMATED BLOOD LOSS: Approximately [0] mL. COMPLICATIONS: [none]. REMARKS: . PROCEDURE NOTE: [Indication: 84 yo with septic presentation of L UPJ stone with hydro on CT; hypotension, acidosis; leukocytosis, confusion]. DESCRIPTION OF PROCEDURE: [After obtaining informed consent from the and daughter of this very ill patient, she was taken to the OR, where, after kaur removal, sterile prep and draping, lidocaine gel was placed per urethra. With MAC sedation, the 21 british cystoscope was passed into the bladder. The L ureteral orifice was visualized and cannulated with a 0.038 flex tip wire which was passed into the iv contrast filled L renal pelvis. A 6-12/32 stent was passed over the wire and positioned with its curl in the renal pelvis on fluoroscopy. The string and wire were removed. A kaur catheter was placed to conclude the procedure, and the patient transferred to recovery in satisfactory condition. JC HANSEN MD Jan 08, 2020 18:43
[2020-01-08] MEDS ORDERED: fentaNYL 100 MCG/2 ML INJECTION (J3010) IV PRN (19:15)
[2020-01-08] MEDS ORDERED: ONDANSETRON 4MG/2ML VIAL IV PRN (19:15)
--- NOTE | 2020-01-08 19:34 | REPVR ---
PROCEDURE INFORMATION: Exam: XR Chest, 1 View Exam date and time: 01/08/2020 7:23 PM Age: 84 years old Clinical indication: Other: Central line; Additional info: Post op in pacu TECHNIQUE: Imaging protocol: XR of the chest Views: 1 view. COMPARISON: CR PORTABLE CHEST X-RAY 01/08/2020 12:50 PM FINDINGS: Tubes, catheters and devices: Right IJ central line terminates at the right atrium. Lungs: Bibasilar atelectasis. Pleural space: Unremarkable. No pleural effusion. No pneumothorax. Heart/Mediastinum: Unremarkable. No cardiomegaly. Vasculature: Elongation of the thoracic aorta with calcification. Bones/joints: Osteopenia. IMPRESSION: Right IJ central line terminates at the right atrium. Electronically signed by: Florin Cuevas On 01/08/2020 19:34:48 PM
[2020-01-08] MEDS ORDERED: PHENYLephrine HCL 500 MCG/5 ML (100MCG/ML) SYRINGE (J2370) As Ordered ONE (20:25)
[2020-01-08] MEDS: LATANOPROST 0.005% OPHTH SOLN 2.5 ML OU SCH (21:00)
[2020-01-08] MEDS: PRAVASTATIN 20 MG TAB PO SCH (21:21)
[2020-01-08] MEDS: ACETAMINOPHEN TAB 650MG DOSE (2X325MG) PO PRN (21:21)
[2020-01-08] MEDS: ASPIRIN 81 MG ENTERIC TAB PO SCH (21:21)
[2020-01-08 22:18] LABS: CK-MB VALUE MASS 5.5 NG/ML (<3.6); MB/CK RELATIVE INDEX 0.66 (< OR =4); TROPONIN I 0.24 NG/ML (< 0.10)
--- NOTE | 2020-01-08 22:27 | REPVR ---
PROCEDURE INFORMATION: Exam: CT Head Without Contrast Exam date and time: 01/08/2020 10:11 PM Age: 84 years old Clinical indication: Altered mental status/memory loss; Additional info: Acute change in mental status; R/O hemorrhagic CVA TECHNIQUE: Imaging protocol: Computed tomography of the head without contrast. Radiation optimization: All CT scans at this facility use at least one of these dose optimization techniques: automated exposure control; mA and/or kV adjustment per patient size (includes targeted exams where dose is matched to clinical indication); or iterative reconstruction. COMPARISON: No relevant prior studies available. FINDINGS: Brain: Decreased attenuation of the supratentorial white matter is likely secondary to chronic microvascular ischemia. No acute intracranial hemorrhage. Cerebral ventricles: Ventricular and subarachnoid spaces are age appropriate. Bones/joints: Unremarkable. No acute fracture. Paranasal sinuses: Visualized sinuses are unremarkable. No fluid levels. Mastoid air cells: Visualized mastoid air cells are well aerated. Vasculature: Intracranial vascular calcification. Soft tissues: Unremarkable. IMPRESSION: No acute intracranial abnormality. Electronically signed by: Florin Cuevas On 01/08/2020 22:27:32 PM
[2020-01-08] MEDS: PIPERACILLIN/TAZOBACTAM SOD 4.5 GM in D5W MINI-BAG PLUS 50 ML IV SCH (22:57)
[2020-01-09] VITALS (18 sets, daily range): BP systolic 85–140; BP diastolic 53–73
[2020-01-09] MEDS ORDERED: NS 1,000 ML IV ONE (00:45)
[2020-01-09 04:00] LABS: MEAN CORPUSCULAR HEMOGLOBIN 32.9 pg (27.0-33.0); MEAN CORPUSCULAR HGB CONC 32.5 g/dl (32.0-36.5); MEAN CORPUSCULAR VOLUME 101.3 fl (80.0-96.0); RED BLOOD COUNT 3.16 10^6/uL (4.00-5.40); WHITE BLOOD COUNT 24.3 10^3/uL (4.0-10.0)
[2020-01-09 04:19] LABS: HEMOGLOBIN 10.4 g/dl (12.0-15.5); PLATELET COUNT, AUTOMATED 81 10^3/uL (150-450)
[2020-01-09 04:31] LABS: ALBUMIN 2.3 GM/DL (3.2-5.2); BILIRUBIN,TOTAL 1.4 MG/DL (0.2-1.0); CALCIUM LEVEL 7.6 MG/DL (8.8-10.2); CK-MB VALUE MASS 6.1 NG/ML (<3.6); CREATININE FOR GFR 1.14 MG/DL (0.55-1.30); GLOMERULAR FILTRATION RATE 48.3 (>32); MB/CK RELATIVE INDEX 0.91 (< OR =4); POTASSIUM SERUM 3.6 MEQ/L (3.5-5.1); TOTAL PROTEIN 5.3 GM/DL (6.4-8.2); TROPONIN I 0.16 NG/ML (< 0.10)
[2020-01-09] MEDS: ACETAMINOPHEN TAB 650MG DOSE (2X325MG) PO PRN (05:38)
[2020-01-09] MEDS: PIPERACILLIN/TAZOBACTAM SOD 4.5 GM in D5W MINI-BAG PLUS 50 ML IV SCH ×3 (05:38→22:10)
--- NOTE | 2020-01-09 08:33 | IPNPDOC ---
Subjective Review oF Systems Chief Complaint The patient is a 84-year-old female admitted with a reason for visit of Rhabdomyoysis, Uti, Obstructing L UPJ stone Events since Last Encounter Pt reports feeling much better this am. Denies spasms Constitutional: Reports: Fever (none since OR) Pulmonary: Denies: Dyspnea, Cough, Pleuritic Chest Pain, Other Symptoms Cardiovascular: Denies Chest Pain, Denies Palpitations, Denies Orthopnea, Denies Paroxysmal Noc. Dyspnea, Denies Edema, Denies Lt Headedness, Denies Other Symptoms Objective Physical Examination General Exam: Alert, Cooperative, No Acute Distress Eye Exam: PERRLA, Conjunctiva & lids normal, EOMI Neck Exam: Supple Chest Exam: Normal air movement Heart Exam: Positive: Rate Normal ABDOMEN EXAM: Normal bowel sounds, Soft Female Exam: Nl Ext Genitalia (Urine clear) Skin Exam: Nl turgor and temperature Neuro Exam: Normal Speech Psych Exam: Mental status NL, Mood NL, Oriented x 3 Vital Signs/I&O Vital Signs Date Time Temp Pulse Resp B/P (MAP) Pulse Ox O2 Delivery O2 Flow Rate FiO2 01/09/20 06:00 82 102/63 (76) 97 Room Air 01/09/20 05:30 1.0 01/09/20 05:00 99.7 19 01/08/20 14:15 100 I&O- Last 24 Hours up to 6 AM 01/09/20 06:00 Intake Total 3370 ml Output Total 520 ml Balance 2850 ml Laboratory Data Labs 24H Laboratory Tests 2 01/08/20 08:28: Lactic Acid Level 4.9*H 01/08/20 08:47: Neutrophils (%) (Auto) , Nucleated Red Blood Cells % (auto) 0.1H, Neutrophils 80H, Band Neutrophils 12H, Lymphocytes (Manual) 5L, Monocytes (Manual) 2, Metamyelocytes 1H, Macrocytosis 1+, Dohle Bodies 1+, Platelet Estimate DECREASED, Anion Gap 10, Glomerular Filtration Rate 45.1, Calcium Level 9.9, Total Bilirubin 2.9H, Direct Bilirubin 0.6H, Aspartate Amino Transf (AST/SGOT) 66H, Alanine Aminotransferase (ALT/SGPT) 35, Alkaline Phosphatase 82, Total Creatine Kinase 813H, Creatine Kinase MB 5.8H, Creatine Kinase MB Relative Index 0.71, Troponin I 0.25H, EE-Ick-I-Type Natriuretic Peptide 95048P, Total Protein 7.2, Albumin 3.3, Albumin/Globulin Ratio 0.8L 01/08/20 09:06: Urine Color MAGGY, Urine Appearance CLOUDYH, Urine pH 6.0, Urine Specific [place] 1.013, Urine Protein 1+H, Urine Glucose (UA) NEGATIVE, Urine Ketones TRACEH, Urine Blood 2+H, Urine Nitrite POSITIVEH, Urine Bilirubin NEGATIVE, Urine Urobilinogen 0.2, Urine Leukocyte Esterase TRACEH, Urine WBC (Auto) 16H, Urine RBC (Auto) 20H, Urine Hyaline Casts (Auto) 3, Urine Bacteria (Auto) 2+H, Urine Squamous Epithelial Cells 0, Urine Mucus (Auto) MODERATE, Urine Sperm (Auto) 01/08/20 12:57: Total Creatine Kinase 682H, Creatine Kinase MB 4.4H, Creatine Kinase MB Relative Index 0.65, Troponin I 0.16#H 01/08/20 13:46: Lactic Acid Followup at 4 Hours 7.4*H 01/08/20 15:46: Methicillin-Resist S.aureus DNA PCR NOT DETECTED 01/08/20 16:51: Coronavirus (COVID-19)(PCR) NEGATIVE 01/08/20 17:04: Total Creatine Kinase 782H, Creatine Kinase MB 3.8H, Creatine Kinase MB Relative Index 0.49, Troponin I 0.31#H 01/08/20 21:38: Lactic Acid Level 2.2*H, Total Creatine Kinase 832H, Creatine Kinase MB 5.5H, Creatine Kinase MB Relative Index 0.66, Troponin I 0.24#H 01/09/20 03:45: Total Creatine Kinase 674H, Creatine Kinase MB 6.1H, Creatine Kinase MB Relative Index 0.91, Troponin I 0.16#H, Nucleated Red Blood Cells % (auto) 0.0, Immature Platelet Fraction 4.8, Anion Gap 7L, Glomerular Filtration Rate 48.3, Lactic Acid Followup at 4 Hours 1.6, Calcium Level 7.6#L, Total Bilirubin 1.4#H, Aspartate Amino Transf (AST/SGOT) 56H, Alanine Aminotransferase (ALT/SGPT) 29, Alkaline Phosphatase 62, Total Protein 5.3#L, Albumin 2.3#L, Albumin/Globulin Ratio 0.8L CBC/BMP Laboratory Tests 01/08/20 08:47 01/09/20 03:45 Microbiology Microbiology 01/08/20 Urine Culture, Received Pending 01/08/20 Blood Culture - Preliminary, Resulted 01/08/20 Blood Culture - Preliminary, Resulted Assessment/Plan Date Seen The patient was seen on 01/09/20. Patient Summary A: Marked improvement after stenting and resuscitation efforts Plan/VTE VTE Prophylaxis Ordered?: Yes Plan P: Per intensivists/hospitalist team. OK for DVT prophylaxis. Pt will need appt in urology 1-2 weeks post discharge to arrange for stent removal/treatment of stone. JC GOTTLIEB MD Jan 09, 2020 08:33
[2020-01-09] MEDS: ENOXAPARIN 40MG/0.4ML SYRINGE (J1650 PER 10MG) SC SCH (08:59)
[2020-01-09] MEDS ORDERED: PANTOPRAZOLE 40MG VIAL (C9113 PER 1) IV SCH (09:00)
[2020-01-09] MEDS ORDERED: ENOXAPARIN 40MG/0.4ML SYRINGE (J1650 PER 10MG) SC SCH (09:00)
--- NOTE | 2020-01-09 10:43 | IPNPDOC ---
Text Note Date of Service The patient was seen on 01/09/20. NOTE HPI: Mrs. Samuels is an 84 yo F that presented to the ED with weakness and had an acute decline in mental status concerning for severe sepsis due to pyelonephritis. SUBJECTIVE: This morning the pt is AAOx3 and still has increased respiratory effort however upon speaking with the , this appears to be her baseline. She says she does not feel short of breath. She denies any chest pain, tightness, nausea, fevers, or chills. She reports a good night sleep and does not have any concerns at this time. OBJECTIVE: VITAL SIGNS: please see below. GENERAL: Pt was seen lying in bed comfortably with somewhat labored breathing but in no acute distress. HEENT: NC, AT, EOMI, no scleral icterus, no pharyngeal erythema. NECK: no JVD or lymphadenopathy appreciated. CV: RRR, no murmurs, rubs, or gallops. RESP: decreased tidal volume, CTAB, no rales, rhonchi, or wheezes, no use of accessory muscles. ABDOMEN: soft, obese, distended in RUQ and LUQ, nontender, bowel sounds hypoact virgilio. MUSCULOSKELETAL: Moving all extremities EXTREMITIES: 3+ pitting edema R LE up to knee, 2+ pitting edema L LE up to knee. NEUROLOGICAL: AAOx3, follows commands, answers questions appropriately, PERRLA, no focal neurological deficits. PSYCHIATRIC: normal mood and affect. LABORATORY: please see below. IMAGING: -CXR 01/07 @ 0823: Impression "Hypoventilatory change with mild bibasilar atelectasis." -CXR 01/07 @ 1217: Impression "Mildly increasing right basilar atelectasis or infiltrate as compared with earlier the same day." -CTA 01/07 @ 1230: Impression "1. No definite pulmonary embolus identified, allowing for motion which particularly affects evaluation of the right lower lobe. Depending on clinical suspicion, may consider followup attempt at CT or correlation with VQ scan. 2. Partial collapse of the right middle lobe with potential airspace disease relating to pneumonia." -CT ABD/PELVIS 01/07 @ 1230: Impression "1. Mild left-sided hydronephrosis with mild delay of the nephrogram secondary to a 9 mm stone at the ureteropelvic junction. 2. Cholelithiasis, as on 08/22/14, with calcifications in the gallbladder wall, which may be associated with increased risk of neoplasm. 3. Mildly increased extrahepatic biliary ductal dilatation, now with mild intrahepatic biliary ductal dilatation evident. Suggest dedicated evaluation for possible biliary obstruction. 4. Small gas in the urinary bladder, presumably relating to a recent catheterization. Confirm clinically." -CT HEAD 01/07: Impression "No acute intracranial abnormality." -RETROGRADE PYELOGRAM 01/07: Pending official read. MICROBIOLOGY: Two blood cultures from 01/07 showed gram negative rods. Repeat blood cultures ordered this morning 01/08. Urine culture pending. ASSESSMENT/PLAN: Mrs. Samuels is an 84 yo F with a PMHx of MS complicated by bladder dysfunction, HTN, and HLD who presented to the ED complaining of a 2 day history of worsening weakness, found to have evidence of a UTI, pyelonephritis, and hydronephrosis along with mental status change, concerning for severe sepsis. #. Severe sepsis 2/2 to obstructing uropathy causing pyelonephritis, s/p emergent stent placement on 01/08. -Pt received 2200cc NS IVF and an additional 1L NS bolus -Central line was placed; Pt has not required pressors -Blood cultures grew gram negative rods; Pt is receiving Zosyn currently and will tailor antibiotics to culture results as warranted. -Urine culture pending -Pt's breathing status has further improved, now on room air saturating 97% -Urology performed a cystoscopy and stent placement. Continue to appreciate their recommendations. She will followup in 1-2 wks after discharge for possible stent removal and stone treatment. #. Elevated troponin 2/2 to demand ischemia, Type II W[place] -Troponin trending down, most recent value 0.16 -No EKG changes noted, pt denies chest pain -Pt will require outpatient cardiac workup -Continue pravastatin and aspirin 81mg #. GB pathology -CT abd showed cholelithiasis and biliary dilation -Spoke with general surgery (Dr. Parisi) who recommended GB ultrasound. GB US results subsequently showed significant dilation of the CBD with GB constriction and cholelithiasis. Based on GB US impression, MRCP was ordered to assess for distal CBD stone causing the dilation. -Pt was switched to CLD in the afternoon today by general surgery. #. Lactic acidosis 2/2 to severe sepsis -Lactic acid on presentation was 4.9, followup was 7.4, has continued to trend down to the most recent value of 1.6. #. Multiple sclerosis -Followup outpatient #. HTN -Holding home losartan and amlodipine due to hypotension #. Bladder dysfunction -Abreu catheter for strict I&O monitoring DVT Prophylaxis: Lovenox 40 mg VS,Fishbone, I+O VS, Fishbone, I+O Laboratory Tests 01/08/20 08:47 01/09/20 03:45 Vital Signs Date Time Temp Pulse Resp B/P (MAP) Pulse Ox O2 Delivery O2 Flow Rate FiO2 01/09/20 06:00 82 102/63 (76) 97 Room Air 01/09/20 05:30 1.0 01/09/20 05:00 99.7 19 01/08/20 14:15 100 I&O- Last 24 Hours up to 6 AM 01/09/20 05:59 Intake Total 3320 ml Output Total 465 ml Balance 2855 ml GME ATTESTATION GME ATTESTATION My faculty preceptor for this patient encounter was physically present during the encounter and was fully available. All aspects of the patient interview, examination, medical decision making process, and medical care plan development were reviewed and approved by the faculty preceptor. The faculty preceptor is aware and concurs with the plan as stated in the body of this note and will attest to such by his/her cosignature. ATTENDING NOTE Patient was seen and examined by me personally with the residents and the students. Agree with the above assessment and plan. MARCELLA REHMAN OMS-3 Jan 09, 2020 09:08 PRANAY MC MD Jan 11, 2020 14:17
[2020-01-09] MEDS ORDERED: NS 1,000 ML IV SCH (10:52)
--- NOTE | 2020-01-09 13:27 | REPVR ---
PROCEDURE INFORMATION: Exam: US Abdomen, Limited; Right Upper Quadrant Exam date and time: 01/09/2020 1:12 PM Age: 84 years old Clinical indication: Abnormal findings; Abnormal radiologic finding of the abdomen; Radiologic exam and body structure: CT; Additional info: Assess4 inc ductal dilitation w/ elev wbc TECHNIQUE: Imaging protocol: US abdomen. Real time ultrasound with image documentation. Limited exam focused on the right upper quadrant. COMPARISON: CT ABD PELVIS WITH CONTRAST 01/08/2020 12:35 PM FINDINGS: Liver: The liver is normal in size with diffuse increase in hepatic parenchymal echogenicity, consistent with fatty infiltration.There are no focal lesions present. Gallbladder: The gallbladder is contracted with multiple echogenic shadowing gallstones with wall echo shadowing /calcification suggesting porcelin gallbladder/chronic cholecystitis. Common bile duct: The CBD is markedly dilated measuring 2.2 cm in diameter associated with moderate intrahepatic biliary dilatation. MRCP is recommended to exclude obstructing distal CBD stone. No discrete CBD stone is seen on the ultrasound study although the distal end is obscured by overlying bowel gas. Pancreas: The pancreas is obscured by overlying bowel gas limiting evaluation. Right kidney: The right kidney is normal in size without evidence for calculus or hydronephrosis. Intraperitoneal space: There is no evidence of free intraperitoneal fluid. IMPRESSION: 1. The liver is normal in size with diffuse increase in hepatic parenchymal echogenicity, consistent with fatty infiltration.There are no focal lesions present. 2. The gallbladder is contracted with multiple echogenic shadowing gallstones with wall echo shadowing /calcification suggesting porcelin gallbladder/chronic cholecystitis. 3. The CBD is markedly dilated measuring 2.2 cm in diameter associated with moderate intrahepatic biliary dilatation. MRCP is recommended to exclude obstructing distal CBD stone. No discrete CBD stone is seen on the ultrasound study although the distal end is obscured by overlying bowel gas. Electronically signed by: Spencer Watson On 01/09/2020 13:27:13 PM
[2020-01-09] MEDS: ASPIRIN 81 MG ENTERIC TAB PO SCH (22:10)
[2020-01-09] MEDS: PRAVASTATIN 20 MG TAB PO SCH (22:10)
[2020-01-09] MEDS: LATANOPROST 0.005% OPHTH SOLN 2.5 ML OU SCH (22:11)
--- NOTE | 2020-01-09 22:11 | REPVR ---
PROCEDURE INFORMATION: Exam: MR Abdomen Without Contrast Exam date and time: 01/09/2020 9:30 PM Age: 84 years old Clinical indication: Abnormal findings; Abnormal radiologic finding of the abdomen; Radiologic exam and body structure: U/s; Additional info: R/O obstructing distal cbd stone based on dilated cbd on u/s TECHNIQUE: Imaging protocol: MR of the abdomen without contrast. 3D rendering (Not supervised by radiologist): MIP and/or 3D reconstructed images were created by the technologist. COMPARISON: CT ABD PELVIS WITH CONTRAST 01/08/2020 12:35 PM FINDINGS: Liver: No mass. Gallbladder and bile ducts: Common bile duct measures 1.9 cm maximally. There is dilatation of the intrahepatic biliary radicles. No evidence of choledocholithiasis. There are gallstones present. Gallbladder is contracted around the calculi suggesting chronic cholecystitis. No evidence of acute cholecystitis demonstrated. Pancreas: Pancreas unremarkable. No significant dilatation of the pancreatic duct. Spleen: Unremarkable. No splenomegaly. Adrenals: Unremarkable. No mass. Kidneys and ureters: Bilateral peripelvic renal cysts. Renal cortical cyst on the left measures up to 1.4 cm. No complex features demonstrated in any of the cysts. Stomach and bowel: Visualized stomach and intestines are unremarkable. Intraperitoneal space: No free fluid. Arteries: No abdominal aortic aneurysm. Bones/joints: Degenerative spondylosis lumbar spine. Soft tissues: Unremarkable. IMPRESSION: 1. Common bile duct measures 1.9 cm maximally. There is dilatation of the intrahepatic biliary radicles. No evidence of choledocholithiasis. 2. There are gallstones present. Gallbladder is contracted around the calculi suggesting chronic cholecystitis. No evidence of acute cholecystitis demonstrated. 3. Bilateral peripelvic renal cysts. Renal cortical cyst on the left measures up to 1.4 cm. No complex features demonstrated in any of the cysts. Electronically signed by: Abelardo Condon On 01/09/2020 22:11:20 PM
[2020-01-09 22:29] LABS: PLATELET COUNT, AUTOMATED 78 10^3/uL (150-450)
[2020-01-10] VITALS: BP 116/54
[2020-01-10 04:00] VITALS: BP 133/64
[2020-01-10] MEDS: PIPERACILLIN/TAZOBACTAM SOD 4.5 GM in D5W MINI-BAG PLUS 50 ML IV SCH (05:39)
[2020-01-10 07:20] LABS: HEMATOCRIT 31.5 % (36.0-47.0); HEMOGLOBIN 10.3 g/dl (12.0-15.5); MEAN CORPUSCULAR HGB CONC 32.7 g/dl (32.0-36.5); RED BLOOD COUNT 3.12 10^6/uL (4.00-5.40)
[2020-01-10 07:21] LABS: PLATELET COUNT, AUTOMATED 80 10^3/uL (150-450)
[2020-01-10 07:39] VITALS: BP 143/65
[2020-01-10 07:51] LABS: ALBUMIN 2.1 GM/DL (3.2-5.2); ALT/SGPT 27 U/L (12-78); BILIRUBIN,TOTAL 1.2 MG/DL (0.2-1.0); BLOOD UREA NITROGEN 20 MG/DL (7-18); CALCIUM LEVEL 7.8 MG/DL (8.8-10.2); CARBON DIOXIDE LEVEL 24 MEQ/L (21-32); CHLORIDE LEVEL 115 MEQ/L (98-107); CREATININE FOR GFR 0.74 MG/DL (0.55-1.30); GLOMERULAR FILTRATION RATE > 60.0 (>32); GLUCOSE, FASTING 105 MG/DL (70-100); POTASSIUM SERUM 3.4 MEQ/L (3.5-5.1); SODIUM LEVEL 146 MEQ/L (136-145)
[2020-01-10] MEDS ORDERED: POTASSIUM CHLORIDE 10 MEQ SR TABLET PO ONE (08:15)
[2020-01-10] MEDS: ENOXAPARIN 40MG/0.4ML SYRINGE (J1650 PER 10MG) SC SCH (08:33)
[2020-01-10 08:54] LABS: MAGNESIUM LEVEL 2.3 MG/DL (1.8-2.4)
[2020-01-10] MEDS: cefTRIAXone SOD 2 GM in D5W MINI-BAG PLUS 50 ML IV SCH (11:26)
[2020-01-10] MEDS ORDERED: IPRATROPIUM 0.5MG/ALBUTEROL 2.5MG INH SOL UD 3ML (DUONEB) NEB ONE (11:45)
[2020-01-10 12:00] VITALS: BP 135/82
[2020-01-10] MEDS: NS 0.45% 1,000 ML IV SCH (12:55)
[2020-01-10 16:00] VITALS: BP 140/82
[2020-01-10 20:00] VITALS: BP 129/65
[2020-01-10] MEDS: ASPIRIN 81 MG ENTERIC TAB PO SCH (20:32)
[2020-01-10] MEDS: PRAVASTATIN 20 MG TAB PO SCH (20:32)
[2020-01-10] MEDS: LATANOPROST 0.005% OPHTH SOLN 2.5 ML OU SCH (20:32)
--- NOTE | 2020-01-10 22:15 | IPNPDOC ---
Date Seen The patient was seen on 01/10/20. Progress Note SUBJECTIVE: Paola was seen and examined this morning by the hospital service while lying in bed. She reports no adverse events overnight and was started yesterday late afternoon/early evening on a clear liquid diet per the recommendation of Dr. Parisi (general surgery). She underwent both a gallbladder ultrasound and MRCP yesterday afternoon. Despite audible wheezing this morning, she denies any pleuritic chest pain, cough, shortness of breath, or increased work of breathing. She also denies any current or overnight fever, chills, night sweats, chest pain, chest pressure, palpitations, nausea, vomiting, or abdominal pain. OBJECTIVE PHYSICAL EXAMINATION: VITAL SIGNS: Please see below. GENERAL: Pleasant, elderly female lying in bed. She is wheezing but does not appear to be any significant distress. Alert and oriented 3. HEENT: NC, AT.noninjected, anicteric sclera. No scleral icterus, no pharyngeal erythema. Mucous membranes are significantly less dry than on previous exams. NECK: Trachea midline. Central line in right IJ remains in place. No lymphadenopathy appreciated.. Neck is supple CV: Regular rate, regular rhythm. Normal S1, S2. 2/6 systolic murmur present, most prominently over the right parasternal second intercostal space. Very difficult to appreciate further for rubs or gallops due to background wheezing. RESP: Prominent wheezing with decreased tidal volume and continued abdomen-heavy breathing that has been her baseline since admission. Due to extensive wheezing, difficult to appreciate for further significant crackles or rhonchi. Breathing room air. Speaking full sentences. ABDOMEN: soft, obese, bloated in RUQ, nontender, bowel sounds somewhat hyperactive with higher pitch over the right upper and lower quadrants. Negative Young sign today., No rigidity appreciated. MUSCULOSKELETAL: Moving all extremities upon command with 5 out of 5 muscle strength of bilateral upper extremities and 4 out of 5 muscle strength of bilateral lower extremities EXTREMITIES: Continued pitting edema of the right lower extremity; swelling of the left lower extremity but no appreciated pitting edema NEUROLOGICAL: AAOx3, follows commands and answers questions appropriately. No focal neurological deficits appreciated. Not dysarthric speech. GENITOURINARY: Abreu catheter remains in place with approximately 180 mL of blood-tinged urine present. PSYCHIATRIC: Mood and affect appear appropriate LABORATORY DATA, IMAGING STUDIES, MICROBIOLOGY: Please see below. -CXR 01/07 @ 0823: Impression "Hypoventilatory change with mild bibasilar atelectasis." -CXR 01/07 @ 1217: Impression "Mildly increasing right basilar atelectasis or infiltrate as compared with earlier the same day." -CTA 01/07 @ 1230: Impression "1. No definite pulmonary embolus identified, allowing for motion which particularly affects evaluation of the right lower lobe. Depending on clinical suspicion, may consider followup attempt at CT or correlation with VQ scan. 2. Partial collapse of the right middle lobe with potential airspace disease relating to pneumonia." -CT ABD/PELVIS 01/07 @ 1230: Impression "1. Mild left-sided hydronephrosis with mild delay of the nephrogram secondary to a 9 mm stone at the ureteropelvic junction. 2. Cholelithiasis, as on 08/22/14, with calcifications in the gallbladder wall, which may be associated with increased risk of neoplasm. 3. Mildly increased extrahepatic biliary ductal dilatation, now with mild intrahepatic biliary ductal dilatation evident. Suggest dedicated evaluation for possible biliary obstruction. 4. Small gas in the urinary bladder, presumably relating to a recent catheterization. Confirm clinically." -CT HEAD 01/07: Impression "No acute intracranial abnormality." ASSESSMENT AND PLAN: This is an 84yo female w/ h/o MS complicate by bladder dysfunction, hyperlipidemia, hypertension who presented to the ED complaining of a 2 day history of progressive weakness and was found to be septic 2/2 pyelonephritis secondary to a left UPJ complete obstructing stone with hydronephrosis with accompanying mental status changes. #Severe sepsis 2/2 to obstructing uropathy causing pyelonephritis, s/p emergent stent placement on 01/08 as well as e.coli bacteremia -Pt received 2200cc NS IVF and an additional 1L NS bolus after sepsis identified. Currently receiving 1/2 NS 50 cc/hr -Central line was placed; Pt has not required pressors -E. coli grew on both blood cultures and antibiotics. Switched from Zosyn to 2 g IV ceftriaxone today. -WBC 23k this morning (24k yesterday) -Urology performed a cystoscopy and stent placement. Continue to appreciate their recommendations. She will followup in 1-2 wks after discharge for possible stent removal and stone treatment. -Continue with telemetry #E.coli bacteremia -Both initial blood cultures from ED presentation grew gram-negative rods with identification of Escherichia coli as as she is on both. Patient had been on Zosyn, which was subsequently switched to 2 g IV ceftriaxone #Complete obstructing stone of left UPJ with hydronephrosis -Patient is postop day 2 after stent placement emergently done by urology (Dr. Hansen) on evening of 01/07. Abreu catheter remains in place with approximately 1 L of urine over the past 24 hours. Hematuria present in catheter. -Switch from Zosyn to IV ceftriaxone with positive Escherichia coli blood culture results that came back today #Gallbladder pathology -CT abd showed cholelithiasis and biliary dilation -Spoke with general surgery (Dr. Parisi) who recommended GB ultrasound. GB US results subsequently showed significant dilation of the CBD with GB constriction and cholelithiasis. Based on GB US impression, MRCP was ordered to assess for distal CBD stone causing the dilation. MRCP showed 1.9 cm dilation of the common bile duct with no choledocholithiasis as well as cholelithiasis and can strictest gallbladder. Patient will likely follow-up with gastroenterology as an outpatient for possible ERCP. At this time, per Dr. Parisi of Gen. surgery, no acute surgical intervention is warranted -Pt was switched from clear liquid diet to soft diet today; we will continue to progress her diet and assess her clinically #Hypernatremia -sNa this morning 146; currently receiving 1/2 NS at 50 cc/hr. Will continue to monitor. -on telemetry #Respiratory wheezing -Patient was given a one time dose of DuoNeb nebulizer today as wheezing was moderately increased from where it was yesterday. Didn't use to deny any shortness of breath, pain with breathing, or increased work of breathing. -She continues to have adequate oxygen saturations on room air. -Will continue to monitor respiratory status #Elevated troponin 2/2 to demand ischemia, Type II [place] -Troponin trending down, most recent value 0.16 -No EKG changes noted, pt denies chest pain -Pt will require outpatient cardiac workup -Continue pravastatin and aspirin 81mg #Multiple sclerosis -Patient reported to hospital service that over the past few days prior to her presentation in the ED, she did not feel safe at home, most likely due to worsening of her MS. An acute rehabilitation unit screening order was placed today -Upon ultimate discharge from the hospital, patient will need to follow-up with both her primary care physician as well as the provider she sees for her multiple sclerosis #Lactic acidosis 2/2 to severe sepsis -Lactic acid on presentation was 4.9, followup was 7.4, has continued to trend down to the most recent value of 1.6. #HTN -Holding home losartan and amlodipine due to initial hypotension #Bladder dysfunction -Abreu catheter for strict I&O monitoring DVT Prophylaxis: Lovenox 40 mg Disposition: Pending continued hemodynamic stability, as well as treatment of Escherichia coli bacteremia VS, I&O, 24H, Fishbone Vital Signs/I&O Vital Signs Date Time Temp Pulse Resp B/P (MAP) Pulse Ox O2 Delivery O2 Flow Rate FiO2 01/10/20 20:00 97.3 94 20 129/65 (86) 98 Room Air 01/09/20 09:01 2.0 01/08/20 14:15 100 I&O- Last 24 Hours up to 6 AM 01/10/20 06:00 Intake Total 1270 ml Output Total 900 ml Balance 370 ml Laboratory Data 24H LABS Laboratory Tests 2 01/10/20 07:02: Nucleated Red Blood Cells % (auto) 0.0, Immature Platelet Fraction 6.5, Anion Gap 7L, Glomerular Filtration Rate > 60.0, Calcium Level 7.8L, Magnesium Level 2.3, Total Bilirubin 1.2H, Aspartate Amino Transf (AST/SGOT) 42H, Alanine Aminotransferase (ALT/SGPT) 27, Alkaline Phosphatase 78, Total Protein 5.0L, Albumin 2.1L, Albumin/Globulin Ratio 0.7L CBC/BMP Laboratory Tests 01/09/20 22:10 01/10/20 07:02 Microbiology Microbiology 01/09/20 Blood Culture - Preliminary, Resulted No growth after 24 hours . All specim... 01/09/20 Blood Culture - Preliminary, Resulted No growth after 24 hours . All specim... 01/08/20 Urine Culture - Final, Complete Escherichia Coli 01/08/20 Blood Culture - Final, Complete Escherichia Coli 01/08/20 Blood Culture - Final, Complete Escherichia Coli GME ATTESTATION GME ATTESTATION My faculty preceptor for this patient encounter was physically present during the encounter and was fully available. All aspects of the patient interview, examination, medical decision making process, and medical care plan development were reviewed and approved by the faculty preceptor. The faculty preceptor is aware and concurs with the plan as stated in the body of this note and will attest to such by his/her cosignature. ATTENDING NOTE Patient was seen and examined by me personally with the residents and the students. Agree with the above assessment and plan. TAE CARRENO D.O. Jan 10, 2020 22:15 PRANAY MC MD Jan 11, 2020 14:19
[2020-01-11] VITALS (8 sets, daily range): BP systolic 124–180; BP diastolic 66–110
[2020-01-11] MEDS ORDERED: **hydrALAZINE** 50 MG TAB PO ONE (09:30)
[2020-01-11] MEDS: ENOXAPARIN 40MG/0.4ML SYRINGE (J1650 PER 10MG) SC SCH (09:43)
[2020-01-11] MEDS: POTASSIUM CHLORIDE 10 MEQ SR TABLET PO SCH ×2 (09:43→11:49)
[2020-01-11] MEDS: NS 0.45% 1,000 ML IV SCH (09:45)
[2020-01-11 11:30] LABS: HEMATOCRIT 33.2 % (36.0-47.0); HEMOGLOBIN 10.9 g/dl (12.0-15.5); MEAN CORPUSCULAR HEMOGLOBIN 32.3 pg (27.0-33.0); MEAN CORPUSCULAR HGB CONC 32.8 g/dl (32.0-36.5); MEAN CORPUSCULAR VOLUME 98.5 fl (80.0-96.0); RED BLOOD COUNT 3.37 10^6/uL (4.00-5.40); WHITE BLOOD COUNT 14.4 10^3/uL (4.0-10.0)
[2020-01-11] MEDS: cefTRIAXone SOD 2 GM in D5W MINI-BAG PLUS 50 ML IV SCH (11:49)
[2020-01-11 11:53] LABS: PLATELET COUNT, AUTOMATED 91 10^3/uL (150-450)
[2020-01-11 11:56] LABS: EOSINOPHILS 2 % (0-3); LYMPHOCYTES 10 % (16-44); MONOCYTES 1 % (0-5); NEUTROPHILS 83 % (28-66); PLATELET ESTIMATE DECREASED (NORMAL)
[2020-01-11 12:20] LABS: ALBUMIN 2.3 GM/DL (3.2-5.2); ALT/SGPT 28 U/L (12-78); BILIRUBIN,TOTAL 0.9 MG/DL (0.2-1.0); BLOOD UREA NITROGEN 8 MG/DL (7-18); CALCIUM LEVEL 8.3 MG/DL (8.8-10.2); CARBON DIOXIDE LEVEL 24 MEQ/L (21-32); CHLORIDE LEVEL 114 MEQ/L (98-107); CREATININE FOR GFR 0.48 MG/DL (0.55-1.30); GLOMERULAR FILTRATION RATE > 60.0 (>32); GLUCOSE, FASTING 120 MG/DL (70-100); POTASSIUM SERUM 3.5 MEQ/L (3.5-5.1); SODIUM LEVEL 144 MEQ/L (136-145); TOTAL PROTEIN 5.2 GM/DL (6.4-8.2)
--- NOTE | 2020-01-11 13:14 | REP ---
RETROGRADE PYLEOGRAM STUDY: 01/08/20 CLINICAL: Left hydronephrosis. TECHNIQUE: Intraoperative fluoroscopic imaging using portable C-ARM Technique. FINDINGS: Images demonstrate mild grade 1/2 left sided hydronephrosis with subsequent satisfactory left ureteral stent placement. Total fluoroscopic time 20 seconds. IMPRESSION: Status post left ureteral stent placement. [facility]
--- NOTE | 2020-01-11 14:43 | IPNPDOC ---
Text Note Date of Service The patient was seen on 01/11/20. NOTE SUBJECTIVE: Mrs. Samuels was seen and examined in the bedside chair. No acute e vents overnight. Her diet was advanced to regular. She is still wheezing this morning but not as bad as yesterday and she denies any shortness of breath. She denies any nausea, vomiting, diarrhea, fever, or chills. OBJECTIVE: VITAL SIGNS: please see below. GENERAL: Pt was seen sitting upright in bedside chair in no acute distress. HEENT: NC, AT, EOMI, no scleral icterus, no pharyngeal erythema. NECK: Central line in right IJ remains in place. No JVD or lymphadenopathy appreciated. CV: RRR, 2/6 systolic murmur over R parasternal 2nd intercostal space, no rubs or gallops. RESP: Audible wheezing, decreased tidal volume. Breathing at her baseline effort. Speaking full sentences. No rales or rhonchi appreciated. ABDOMEN: soft, obese, bloating in RUQ, nontender, bowel sounds present in all quadrants. MUSCULOSKELETAL: 5/5 strength BL UE, 4/5 strength BL LE. EXTREMITIES: 3+ pitting edema R LE to the knee, 2+ pitting edema L LE up to the knee. NEURO: AAOx3, follows commands, answers questions appropriately, no focal deficits. : kaur catheter in place, 200 mL blood tinged urine present in bag. PSYCH: Normal mood and affect. LABORATORY: Please see below. IMAGING: -CXR 01/07 @ 0823: Impression "Hypoventilatory change with mild bibasilar atelectasis." -CXR 01/07 @ 1217: Impression "Mildly increasing right basilar atelectasis or infiltrate as compared with earlier the same day." -CTA 01/07 @ 1230: Impression "1. No definite pulmonary embolus identified, allowing for motion which particularly affects evaluation of the right lower lobe. Depending on clinical suspicion, may consider followup attempt at CT or correlation with VQ scan. 2. Partial collapse of the right middle lobe with potential airspace disease relating to pneumonia." -CT ABD/PELVIS 01/07 @ 1230: Impression "1. Mild left-sided hydronephrosis with mild delay of the nephrogram secondary to a 9 mm stone at the ureteropelvic junction. 2. Cholelithiasis, as on 08/22/14, with calcifications in the gallbladder wall, which may be associated with increased risk of neoplasm. 3. Mildly increased extrahepatic biliary ductal dilatation, now with mild intrahepatic biliary ductal dilatation evident. Suggest dedicated evaluation for possible biliary obstruction. 4. Small gas in the urinary bladder, presumably relating to a recent catheterization. Confirm clinically." -CT HEAD 01/07: Impression "No acute intracranial abnormality." MICROBIOLOGY: Please see below. ASSESSMENT/PLAN: Mrs. Samuels is an 84yo female w/ h/o MS complicated by bladder dysfunction, hyperlipidemia, hypertension who presented to the ED complaining of a 2 day history of progressive weakness and was found to be septic 2/2 pyelonephritis secondary to a left UPJ complete obstructing stone with hydronephrosis s/p stenting now with dilated CBD and concern for chronic cholecystitis. #. Severe sepsis 2/2 to obstructing uropathy causing pyelonephritis, s/p emergent stent placement on 01/08 as well as e.coli bacteremia -s/p fluid resuscitation and central line. Patient never required pressors -E. coli grew on both blood cultures and antibiotics. Switched from Zosyn to 2 g IV ceftriaxone. Continue ceftriaxone for 3-4 days and transition to oral Levaquin on discharge. -WBC 14.4 this morning, down from 23 yesterday. Ordered peripheral smear -Urology performed a cystoscopy and stent placement. Continue to appreciate their recommendations. She will followup in 1-2 wks after discharge for possible stent removal and stone treatment. #. E.coli bacteremia -Both initial blood cultures from ED presentation grew gram-negative rods with identification of Escherichia coli as as she is on both. Patient had been on Zosyn, which was subsequently switched to 2 g IV ceftriaxone which will continue for 3-4 more days. -Repeat blood cultures show no growth. #. Complete obstructing stone of left UPJ with hydronephrosis -Patient is postop day 3 after stent placement emergently done by urology (Dr. Hansen) on evening of 01/07. Kaur catheter remains in place with hematuria present. #. CBD dilatation, concern for cholecystitis: -CT abd showed cholelithiasis and biliary dilation -Spoke with general surgery (Dr. Parisi) who recommended GB ultrasound. GB US results subsequently showed significant dilation of the CBD with GB constriction and cholelithiasis. -MRCP showed 1.9 cm dilation of the common bile duct with no choledocholithiasis as well as cholelithiasis and constricted gallbladder. Patient will likely follow-up with gastroenterology as an outpatient for possible ERCP. At this time, per Dr. Parisi of Gen. surgery, no acute surgical intervention is warranted -Pt's diet advanced to regular. #. Respiratory wheezing -Pt given duonebs yesterday with little symptom improvement. -Pt continues to deny shortness of breath. -Continue to monitor respiratory status, saturating well on RA #. Elevated troponin 2/2 to demand ischemia, Type II [place] -Troponin trended down, most recent value 0.16 -No EKG changes noted, pt denies chest pain -Pt will require outpatient cardiac workup -Continue pravastatin and aspirin 81mg #. Multiple sclerosis -Follow up outpatient #. HTN -Holding home losartan and amlodipine due to initial hypotension #. Bladder dysfunction -Kaur catheter for strict I&O monitoring. DVT Prophylaxis: Lovenox 40mg DISPOSITION: Pending continued hemodynamic stability, as well as treatment of E.coli bacteremia. VS,Fishbone, I+O VS, Fishbone, I+O Laboratory Tests 01/11/20 11:14 Vital Signs Date Time Temp Pulse Resp B/P (MAP) Pulse Ox O2 Delivery O2 Flow Rate FiO2 01/11/20 12:00 97.4 92 18 126/82 (97) 97 Room Air 01/09/20 09:01 2.0 01/08/20 14:15 100 I&O- Last 24 Hours up to 6 AM 01/11/20 06:00 Intake Total 1440 ml Output Total 1825 ml Balance -385 ml GME ATTESTATION GME ATTESTATION My faculty preceptor for this patient encounter was physically present during the encounter and was fully available. All aspects of the patient interview, examination, medical decision making process, and medical care plan development were reviewed and approved by the faculty preceptor. The faculty preceptor is aware and concurs with the plan as stated in the body of this note and will attest to such by his/her cosignature. MARCELLA REHMAN OMS-3 Jan 11, 2020 14:43 JEFE RIOS MD Jan 11, 2020 16:30
--- NOTE | 2020-01-11 15:00 | CR ---
DATE OF CONSULTATION: 01/09/2020 CHIEF COMPLAINT: Sepsis with admission for urinary sepsis and changes in mental status. REASONS FOR CONSULTATION: 1. Gallstones. 2. Slightly elevated liver function tests with abdominal distention: BRIEF HISTORY OF PRESENT ILLNESS: Patient is an 84 -year-old female with bladder dysfunction, eventually was found at home down and was brought to the Emergency Room and work-up revealed that she was septic appearing and upon her further work-up found that she had evidence of urinary sepsis, was treated for this, but in the meantime after being treated and having undergone imaging study a CT scan had revealed that she had some gallstones with some calcifications in the gallbladder wall; however, the common bile duct was enlarged and I was asked to make recommendations concerning possible implications concerning this abnormality and whether her ongoing infectious process was still secondary to some sort of liver/gallbladder abnormality, i.e., ascending cholangitis versus cholecystitis. Patient did undergo an ultrasound which revealed no gallbladder wall thickening and revealed a dilated common bile duct. PAST MEDICAL AND SURGICAL HISTORY: Significant for: * History of multiple sclerosis. * History of bladder dysfunction. * History of hypertension. * Hyperlipidemia. * Osteoporosis. * Right breast cancer status post lumpectomy, chemotherapy and radiation. * Hysterectomy. * Tonsillectomy. * Appendectomy. ADMISSION MEDICATIONS: Include: * Amlodipine. * Aspirin. * Lomotil. * Dorzolamide. * Eye drops. * Gabapentin. * Losartan. * Oxybutynin. * Potassium chloride. * Pravastatin. * Travatan. PHYSICAL EXAMINATION: Physical exam reveals an 84-year-old female who was transferred from ICU to PCU and overall she states that she is better at this time despite having an increased white count today that went up from admission of 16.1 to 24,000. She has been afebrile and has not appeared to be hypotensive. She has had good urine output and has had a bowel movement without significant diarrhea. Exam reveals an individual who is alert and responding to questions appropriately. When asked about her abdominal discomfort she states that she is uncomfortable, but not tender or sore as she was originally. She has some mild abdominal distention with tympany in the epigastric area without guarding, without rebound, without peritoneal signs, no hernias are appreciated. Lungs: Clear anteriorly. Heart: Regular with multiple irregular beats. IMPRESSION AND PLAN: Patient has evidence of a dilated common bile duct although she does not really appear to have ascending cholangitis, her liver function tests are not supportive of this and she may have some chronic cholecystitis, but I do not feel that this is impacting her current abnormality or etiology of this sepsis issue. Thus at this point my recommendation is given her common bile duct dilatation it is very reasonable to proceed with an MRCP tomorrow. When she continues to make some improvement, right now she is still feeling fatigued from her sepsis issue and it sounds reasonable that this is not an urgent or emergent need for intervention, i.e., decompression/ERCP, thus it is reasonable to proceed with the MRCP tomorrow and depending on the results of this if there is some concerning abnormality may need an ERCP if her LFTs are increasing in amount, etc., or if she does not resolve her white count, etc. MTDD
--- NOTE | 2020-01-11 15:02 | IPN ---
DATE: 01/10/2020 SUBJECTIVE: Patient overall has had significant improvement of her overall status, tolerated some clear liquids; last night when I saw her I had started her on some clear liquids given that I did not feel that she had an issue such as cholecystitis or ascending cholangitis. It sounds as though she ended up having an MRCP last night after I saw her and this revealed no significant abnormalities other than a dilated common bile duct, intrahepatic ducts. However, when we look at her liver function tests her AST and ALT are relatively low; she has a slightly elevated AST of 42 and a bilirubin that is slightly elevated, but these are not consistent with obstructive looking pattern nor are they consistent with evidence of ascending cholangitis. Her white count has stayed stable although she feels much better at this point. PHYSICAL EXAMINATION: Abdomen: Soft, nondistended, nontender. IMPRESSION AND PLAN: No evidence of biliary surgery necessary at this time, i.e., no evidence of cholecystitis. She can follow up as an outpatient with me; however, I would recommend given her dilated common bile duct that she be evaluated by GI in the future for possible ERCP. I anticipate that she may not have any further intervention as long as her liver function tests are not elevated and she is not complaining of right upper quadrant pain, but I would defer that opinion to the truck body builder apprentice and otherwise I will sign off the service for now and please contact the surgery service if you need further input. ANTHONY
[2020-01-11] MEDS: PRAVASTATIN 20 MG TAB PO SCH (21:47)
[2020-01-11] MEDS: ASPIRIN 81 MG ENTERIC TAB PO SCH (21:47)
[2020-01-11] MEDS: LATANOPROST 0.005% OPHTH SOLN 2.5 ML OU SCH (21:47)
[2020-01-12] VITALS: BP 162/84
[2020-01-12] MEDS: NS 0.45% 1,000 ML IV SCH ×2 (03:01→23:56)
[2020-01-12 04:00] VITALS: BP 160/98
[2020-01-12 07:10] LABS: HEMATOCRIT 31.5 % (36.0-47.0); HEMOGLOBIN 10.2 g/dl (12.0-15.5); MEAN CORPUSCULAR HEMOGLOBIN 32.3 pg (27.0-33.0); MEAN CORPUSCULAR HGB CONC 32.4 g/dl (32.0-36.5); MEAN CORPUSCULAR VOLUME 99.7 fl (80.0-96.0); PLATELET COUNT, AUTOMATED 110 10^3/uL (150-450); RED BLOOD COUNT 3.16 10^6/uL (4.00-5.40); WHITE BLOOD COUNT 9.1 10^3/uL (4.0-10.0)
[2020-01-12 08:00] VITALS: BP 160/90
[2020-01-12] MEDS: ENOXAPARIN 40MG/0.4ML SYRINGE (J1650 PER 10MG) SC SCH (09:47)
[2020-01-12 10:53] LABS: ALBUMIN 2.3 GM/DL (3.2-5.2); ALT/SGPT 24 U/L (12-78); BILIRUBIN,TOTAL 0.8 MG/DL (0.2-1.0); BLOOD UREA NITROGEN 5 MG/DL (7-18); CALCIUM LEVEL 8.2 MG/DL (8.8-10.2); CARBON DIOXIDE LEVEL 25 MEQ/L (21-32); CHLORIDE LEVEL 114 MEQ/L (98-107); CREATININE FOR GFR 0.41 MG/DL (0.55-1.30); GLOMERULAR FILTRATION RATE > 60.0 (>32); GLUCOSE, FASTING 88 MG/DL (70-100); SODIUM LEVEL 144 MEQ/L (136-145); TOTAL PROTEIN 5.3 GM/DL (6.4-8.2)
[2020-01-12 12:00] VITALS: BP 156/72
[2020-01-12] MEDS: cefTRIAXone SOD 2 GM in D5W MINI-BAG PLUS 50 ML IV SCH (12:12)
--- NOTE | 2020-01-12 15:34 | IPNPDOC ---
Date Seen The patient was seen on 01/12/20. Progress Note SUBJECTIVE: Paola was seen and examined this morning by the hospitalist service while lying in bed. She denies any adverse events overnight and maintains that she is not feeling short of breath, or feeling like she is working harder breathe, or having any associated pain with breathing. She denies any current, or overnight, chest pain, palpitations, fever, chills, night sweats, nausea, or vomiting. OBJECTIVE PHYSICAL EXAMINATION: VITAL SIGNS: Please see below. GENERAL: Pleasant, elderly female lying in bed. She is wheezing but does not appear to be in any significant distress. Alert and oriented 3. HEENT: NC, AT. Noninjected, anicteric sclera. No scleral icterus. MMM. NECK: Trachea midline. Central line in right IJ has been extracted with bandaging over former site. No lymphadenopathy appreciated. Neck is supple CV: Regular rate, regular rhythm. Normal S1, S2. 2/6 systolic murmur present, most prominently over the right parasternal second intercostal space. Very diff icult to appreciate further for rubs or gallops due to background wheezing. RESP: Prominent wheezing with decreased tidal volume and continued abdomen-heavy breathing that has been her baseline since admission. Due to extensive wheezing, difficult to appreciate for further significant crackles or rhonchi. Breathing room air. Speaking full sentences. ABDOMEN: soft, obese, bloating present in the RUQ is diminished today versus previous exam. Nontender. bowel sounds somewhat hyperactive with higher pitch over the right upper and lower quadrants. No guarding or rigidity appreciated. MUSCULOSKELETAL: Moving all extremities upon command with 5 out of 5 muscle strength of bilateral upper extremities and 4 out of 5 muscle strength of bilateral lower extremities EXTREMITIES: Continued pitting edema of the right lower extremity; swelling of the left lower extremity but no appreciated pitting edema NEUROLOGICAL: AAOx3, follows commands and answers questions appropriately. No focal neurological deficits appreciated. Not dysarthric speech. GENITOURINARY: Abreu catheter remains in place with approximately 500 mL of blood-tinged urine present. PSYCHIATRIC: Mood and affect appear appropriate LABORATORY DATA, IMAGING STUDIES, MICROBIOLOGY: Please see below. -CXR 01/07 @ 0823: Impression "Hypoventilatory change with mild bibasilar atelectasis." -CXR 01/07 @ 1217: Impression "Mildly increasing right basilar atelectasis or infiltrate as compared with earlier the same day." -CTA 01/07 @ 1230: Impression "1. No definite pulmonary embolus identified, allowing for motion which particularly affects evaluation of the right lower lobe. Depending on clinical suspicion, may consider followup attempt at CT or correlation with VQ scan. 2. Partial collapse of the right middle lobe with potential airspace disease relating to pneumonia." -CT ABD/PELVIS 01/07 @ 1230: Impression "1. Mild left-sided hydronephrosis with mild delay of the nephrogram secondary to a 9 mm stone at the ureteropelvic junc tion. 2. Cholelithiasis, as on 08/22/14, with calcifications in the gallbladder wall, which may be associated with increased risk of neoplasm. 3. Mildly increased extrahepatic biliary ductal dilatation, now with mild intrahepatic biliary ductal dilatation evident. Suggest dedicated evaluation for possible biliary obstruction. 4. Small gas in the urinary bladder, presumably relating to a recent catheterization. Confirm clinically." -CT HEAD 01/07: Impression "No acute intracranial abnormality." ASSESSMENT AND PLAN: This is an 84yo female w/ h/o MS complicate by bladder dysfunction, hyperlipi demia, hypertension who presented to the ED complaining of a 2 day history of progressive weakness and was found to be septic 2/2 pyelonephritis secondary to a left UPJ complete obstructing stone with hydronephrosis with accompanying mental status changes. Underwent an emergent stent placement to relieve obstruction on 01/07, with subsequent improvement in mental status. #Severe sepsis 2/2 to obstructing uropathy causing pyelonephritis, s/p emergent stent placement on 01/07 as well as e.coli bacteremia; resolved -today marked first day since admission with normalized WBC -Pt received 2200cc NS IVF and an additional 1L NS bolus after sepsis identified. Currently receiving 1/2 NS 50 cc/hr -Central line was placed prior to OR stenting on 01/07 due to hypotension, but no pressor meds ever administered. -E. coli grew on both blood cultures and UCx. Antibiotics were switched from Zosyn to 2 g IV ceftriaxone on 01/09. Currently on Day #3 of ceftriaxone, and is on Day #5 of ABx administration overall. Will ultimately switch to po prior to d/c, likely in the form of levaquin -Urology performed a cystoscopy and stent placement. She will followup in 1-2 wks after discharge for possible stent removal and stone treatment. -Continue with telemetry #E.coli bacteremia -Both initial blood cultures from ED presentation grew gram-negative rods with identification of Escherichia coli as as she is on both. Patient had been on Zosyn, which was subsequently switched to 2 g IV ceftriaxone on 01/09. Ultimate ABx goal is switch to po in form of levaquin prior to d/c -two follow-up BCx showed no growth after 48 hours #Complete obstructing stone of left UPJ with hydronephrosis -Patient is postop day 2 after stent placement emergently done by urology (Dr. Hansen) on evening of 01/07. Abreu catheter remains in place with approximately 1 L of urine over the past 24 hours. Hematuria present in catheter. -Switch from Zosyn to IV ceftriaxone with positive Escherichia coli blood culture results on 01/09 #Gallbladder pathology -CT abd showed cholelithiasis and biliary dilation -Spoke with general surgery (Dr. Parisi) who recommended GB ultrasound. GB US results subsequently showed significant dilation of the CBD with GB constriction and cholelithiasis. Based on GB US impression, MRCP was ordered to assess for distal CBD stone causing the dilation. MRCP showed 1.9 cm dilation of the common bile duct with no choledocholithiasis as well as cholelithiasis and can strictest gallbladder. Patient will likely follow-up with gastroenterology as an outpatient for possible ERCP. At this time, per Dr. Parisi of general surgery, no acute surgical intervention is warranted but eventual outpatient f/u for chronic cholecystitis -Pt has advanced to a regular diet and is tolerating without issue #Hypernatremia -sNa this morning 144; currently receiving 1/2 NS at 50 cc/hr. Will continue to monitor. -continue w/ telemetry #Respiratory wheezing -Patient was given one time dose of DuoNeb nebulizer on 01/09 that she states did little to change wheezing. She continues to deny any shortness of breath, pain with breathing, or increased work of breathing. -She continues to have adequate oxygen saturations on room air. -Will continue to monitor respiratory status #Elevated troponin 2/2 to demand ischemia, Type II [place] -Troponin trended down after day of presentation, no longer trending -No EKG changes were noted on day of presentation, pt denies chest pain -Pt will require outpatient cardiac workup upon discharge -Continue pravastatin and aspirin 81mg -2-D echo ordered today to assess for possible cardiomyopathy/ cardiac pathology in setting of likely type II [place] #Multiple sclerosis -Patient reported to hospital service that over the past few days prior to her presentation in the ED, she did not feel safe at home, most likely due to worsening of her MS. An acute rehabilitation unit screening order was placed on 01/09. PT/OT is also on board evaluating patient. -Upon ultimate discharge from the hospital, patient will need to follow-up with both her primary care physician as well as the provider she sees for her multiple sclerosis #Lactic acidosis 2/2 to severe sepsis -no longer trending at this time after significant elevation from 4 to 7 on presentation day, with subsequent downtrend afterwards #HTN -we have continued to hold home losartan and amlodipine due to initial h ypotension. Patient has remained hemodynamically stable #Bladder dysfunction -Abreu catheter for strict I&O monitoring DVT Prophylaxis: Lovenox 40 mg Disposition: Pending continued treatment of Escherichia coli bacteremia and ultimate assessment for safe placement (aru, nursing home, etc) upon discharge Patient seen and examined independently. Agree with resident's note. VS, I&O, 24H, Fishbone Vital Signs/I&O Vital Signs Date Time Temp Pulse Resp B/P (MAP) Pulse Ox O2 Delivery O2 Flow Rate FiO2 01/12/20 12:00 97.3 87 18 156/72 (100) 96 Room Air 01/09/20 09:01 2.0 01/08/20 14:15 100 I&O- Last 24 Hours up to 6 AM 01/12/20 06:00 Intake Total 1667 ml Output Total 2400 ml Balance -733 ml Laboratory Data 24H LABS Laboratory Tests 2 01/12/20 06:06: Anion Gap 5L, Glomerular Filtration Rate > 60.0, Calcium Level 8.2L, Total Bilirubin 0.8, Aspartate Amino Transf (AST/SGOT) 20, Alanine Aminotransferase (ALT/SGPT) 24, Alkaline Phosphatase 89, Total Protein 5.3L, Albumin 2.3L, Albumin/Globulin Ratio 0.8L 01/12/20 06:09: Nucleated Red Blood Cells % (auto) 0.0 CBC/BMP Laboratory Tests 01/12/20 06:06 01/12/20 06:09 Microbiology Microbiology 01/09/20 Blood Culture - Preliminary, Resulted No Growth after 72 hours. All specime... 01/09/20 Blood Culture - Preliminary, Resulted No Growth after 72 hours. All specime... 01/08/20 Urine Culture - Final, Complete Escherichia Coli 01/08/20 Blood Culture - Final, Complete Escherichia Coli 01/08/20 Blood Culture - Final, Complete Escherichia Coli TAE CARRENO D.O. Jan 12, 2020 15:34 KARINA CORDOBA MD Feb 04, 2020 14:13
[2020-01-12 16:00] VITALS: BP 143/94
[2020-01-12 19:38] VITALS: BP 140/78
[2020-01-12] MEDS: ASPIRIN 81 MG ENTERIC TAB PO SCH (20:15)
[2020-01-12] MEDS: PRAVASTATIN 20 MG TAB PO SCH (20:15)
[2020-01-12] MEDS: LATANOPROST 0.005% OPHTH SOLN 2.5 ML OU SCH (20:15)
[2020-01-13] VITALS: BP 143/65
[2020-01-13 04:00] VITALS: BP 148/79
[2020-01-13 05:41] LABS: HEMATOCRIT 33.8 % (36.0-47.0); HEMOGLOBIN 11.1 g/dl (12.0-15.5); MEAN CORPUSCULAR HEMOGLOBIN 32.5 pg (27.0-33.0); MEAN CORPUSCULAR HGB CONC 32.8 g/dl (32.0-36.5); MEAN CORPUSCULAR VOLUME 98.8 fl (80.0-96.0); PLATELET COUNT, AUTOMATED 150 10^3/uL (150-450); RED BLOOD COUNT 3.42 10^6/uL (4.00-5.40); WHITE BLOOD COUNT 10.3 10^3/uL (4.0-10.0)
[2020-01-13 06:18] LABS: ALBUMIN 2.5 GM/DL (3.2-5.2); ALT/SGPT 25 U/L (12-78); BILIRUBIN,TOTAL 1.1 MG/DL (0.2-1.0); BLOOD UREA NITROGEN 5 MG/DL (7-18); CALCIUM LEVEL 8.2 MG/DL (8.8-10.2); CARBON DIOXIDE LEVEL 26 MEQ/L (21-32); CHLORIDE LEVEL 109 MEQ/L (98-107); CREATININE FOR GFR 0.45 MG/DL (0.55-1.30); GLOMERULAR FILTRATION RATE > 60.0 (>32); GLUCOSE, FASTING 100 MG/DL (70-100); POTASSIUM SERUM 3.7 MEQ/L (3.5-5.1); SODIUM LEVEL 142 MEQ/L (136-145); TOTAL PROTEIN 5.9 GM/DL (6.4-8.2)
[2020-01-13 08:00] VITALS: BP 147/75
[2020-01-13] MEDS: ENOXAPARIN 40MG/0.4ML SYRINGE (J1650 PER 10MG) SC SCH (08:26)
--- NOTE | 2020-01-13 10:05 | IPNPDOC ---
Text Note Date of Service The patient was seen on 01/13/20. NOTE SUBJECTIVE: Patient seen and examined at bedside. No acute overnight events reported. Patient voices no new medical complaints this morning. OBJECTIVE: PHYSICAL EXAMINATION: VITAL SIGNS: Please see below. GENERAL: Pleasant, elderly female lying in bed, NAD HEENT: NC/AT NECK: Trachea midline. Central line in right IJ has been extracted with bandaging over former site. No lymphadenopathy appreciated. Neck is supple CV: Regular rate, regular rhythm. Normal S1, S2. 2/6 systolic murmur present, most prominently over the right parasternal second intercostal space. Very difficult to appreciate further for rubs or gallops due to background wheezing. RESP: Prominent wheezing with decreased tidal volume and continued abdomen-heavy breathing that has been her baseline since admission. Due to extensive wheezing, difficult to appreciate for further significant crackles or rhonchi. Breathing room air. Speaking full sentences. ABDOMEN: soft, obese, NT, +BS EXTREMITIES: Continued pitting edema of the right lower extremity; swelling of the left lower extremity but no appreciated pitting edema, kaur catheter in place PSYCHIATRIC: AAOx3 ASSESSMENT AND PLAN: This is an 84yo female w/ h/o MS complicate by bladder dysfunction, hyperlipidemia, hypertension who presented to the ED complaining of a 2 day history of progressive weakness and was found to be septic 2/2 pyelonephritis secondary to a left UPJ complete obstructing stone with hydronephrosis with accompanying mental status changes. Underwent an emergent stent placement to relieve obstruction on 01/07, with subsequent improvement in mental status. #Severe sepsis - 2/2 to obstructing uropathy causing pyelonephritis, s/p emergent stent placement on 01/07 as well as e.coli bacteremia; resolved - slight increase in WBC, continue to monitor -Central line was placed prior to OR stenting on 01/07 due to hypotension, but no pressor meds ever administered. -E. coli grew on both blood cultures and UCx. Antibiotics were switched from Zosyn to 2 g IV ceftriaxone on 01/09. Currently on Day #4 of ceftriaxone, and is on Day #5 of ABx administration overall. Will ultimately switch to po prior to d/c, likely in the form of levaquin - echo complete - pending report -Urology performed a cystoscopy and stent placement. She will followup in 1-2 wks after discharge for possible stent removal and stone treatment. -Continue with telemetry #E.coli bacteremia -Both initial blood cultures from ED presentation grew gram-negative rods with identification of Escherichia coli as as she is on both. Patient had been on Zosyn, which was subsequently switched to 2 g IV ceftriaxone on 01/09. Ultimate ABx goal is switch to po in form of levaquin prior to d/c -two follow-up BCx showed no growth after 48 hours - echo pending report - as above - day #4 ceftriaxone after 1 day zosyn #Complete obstructing stone of left UPJ with hydronephrosis -Patient is postop day 3 after stent placement emergently done by urology (Dr. Hansen) on evening of 01/07. Kaur catheter remains in place with approximately 1 L of urine over the past 24 hours. Hematuria present in catheter. -Switch from Zosyn to IV ceftriaxone with positive Escherichia coli blood culture results on 01/09 #Gallbladder pathology -CT abd showed cholelithiasis and biliary dilation -Spoke with general surgery (Dr. Parisi) who recommended GB ultrasound. GB US results subsequently showed significant dilation of the CBD with GB constriction and cholelithiasis. Based on GB US impression, MRCP was ordered to assess for distal CBD stone causing the dilation. MRCP showed 1.9 cm dilation of the common bile duct with no choledocholithiasis as well as cholelithiasis and can strictest gallbladder - as per surgery - recommends patient to follow-up with GI as o/p for possible ERCP - per Dr. Parisi of general surgery, no acute surgical intervention is w arranted but eventual outpatient f/u for chronic cholecystitis - tolerating regular diet - no complaints #Hypernatremia - resolved #Respiratory wheezing -Patient was given one time dose of DuoNeb nebulizer on 01/09 that she states did little to change wheezing. She continues to deny any shortness of breath, pain with breathing, or increased work of breathing. -She continues to have adequate oxygen saturations on room air. -Will continue to monitor respiratory status - as per patient and family - this is baseline #Elevated troponin 2/2 to demand ischemia, Type II [place] -Troponin trended down after day of presentation, no longer trending -No EKG changes were noted on day of presentation, pt denies chest pain -Pt will require outpatient cardiac workup upon discharge -Continue pravastatin and aspirin 81mg -2-D echo ordered today to assess for possible cardiomyopathy/ cardiac pathology in setting of likely type II [place] #Multiple sclerosis -Patient reported to hospital service that over the past few days prior to her presentation in the ED, she did not feel safe at home, most likely due to worsening of her MS. An acute rehabilitation unit screening order was placed on 01/09. PT/OT is also on board evaluating patient. -Upon ultimate discharge from the hospital, patient will need to follow-up with both her primary care physician as well as the provider she sees for her multiple sclerosis #Lactic acidosis 2/2 to severe sepsis - resolved #HTN -we have continued to hold home losartan and amlodipine due to initial hypotension. Patient has remained hemodynamically stable #Bladder dysfunction -Kaur catheter for strict I&O monitoring DVT Prophylaxis: Lovenox 40 mg Disposition: Pending clinical improvement and placement VS,Fishbone, I+O VS, Fishbone, I+O Laboratory Tests 01/13/20 05:16 Vital Signs Date Time Temp Pulse Resp B/P (MAP) Pulse Ox O2 Delivery O2 Flow Rate FiO2 01/13/20 08:00 97.7 97 18 147/75 (99) 95 Room Air 01/09/20 09:01 2.0 01/08/20 14:15 100 I&O- Last 24 Hours up to 6 AM 01/13/20 06:00 Intake Total 1736 ml Output Total 2775 ml Balance -1039 ml KARINA CORDOBA MD Jan 13, 2020 10:05
[2020-01-13] MEDS: cefTRIAXone SOD 2 GM in D5W MINI-BAG PLUS 50 ML IV SCH (12:14)
[2020-01-13 16:00] VITALS: BP 157/95
[2020-01-13 20:00] VITALS: BP 145/84
[2020-01-13] MEDS: ASPIRIN 81 MG ENTERIC TAB PO SCH (20:47)
[2020-01-13] MEDS: LATANOPROST 0.005% OPHTH SOLN 2.5 ML OU SCH (20:47)
[2020-01-13] MEDS: PRAVASTATIN 20 MG TAB PO SCH (20:47)
[2020-01-13] MEDS: NS 0.45% 1,000 ML IV SCH (20:48)
[2020-01-13] MEDS: ACETAMINOPHEN TAB 650MG DOSE (2X325MG) PO PRN (20:51)
[2020-01-14 04:00] VITALS: BP 151/83
[2020-01-14 05:15] LABS: HEMATOCRIT 30.8 % (36.0-47.0); HEMOGLOBIN 10.5 g/dl (12.0-15.5); MEAN CORPUSCULAR HEMOGLOBIN 33.5 pg (27.0-33.0); MEAN CORPUSCULAR HGB CONC 34.1 g/dl (32.0-36.5); MEAN CORPUSCULAR VOLUME 98.4 fl (80.0-96.0); PLATELET COUNT, AUTOMATED 212 10^3/uL (150-450); RED BLOOD COUNT 3.13 10^6/uL (4.00-5.40); WHITE BLOOD COUNT 9.2 10^3/uL (4.0-10.0)
[2020-01-14 05:35] LABS: BLOOD UREA NITROGEN 6 MG/DL (7-18); CALCIUM LEVEL 8.5 MG/DL (8.8-10.2); CARBON DIOXIDE LEVEL 26 MEQ/L (21-32); CHLORIDE LEVEL 110 MEQ/L (98-107); GLOMERULAR FILTRATION RATE > 60.0 (>32); GLUCOSE, FASTING 105 MG/DL (70-100); POTASSIUM SERUM 3.5 MEQ/L (3.5-5.1); SODIUM LEVEL 141 MEQ/L (136-145)
[2020-01-14] MEDS: ENOXAPARIN 40MG/0.4ML SYRINGE (J1650 PER 10MG) SC SCH (07:39)
[2020-01-14 08:00] VITALS: BP 180/98
[2020-01-14] MEDS: amLODIPine 5 MG TAB PO SCH ×2 (08:47→21:09)
[2020-01-14] MEDS ORDERED: SLF 3 ML SYR IV PRN (11:00)
[2020-01-14] MEDS: cefTRIAXone SOD 2 GM in D5W MINI-BAG PLUS 50 ML IV SCH (11:35)
--- NOTE | 2020-01-14 11:37 | IPNPDOC ---
Text Note Date of Service The patient was seen on 01/14/20. NOTE SUBJECTIVE: Mrs. Guevara is a 84 year old female patient was examined bed side this morning. She was sitting in bed eating her breakfast. She denies having adverse events over night, reports having a good night sleep. She denies having any shortness of breath, chest pain, fever,chills, nausea and vomiting. Objective: General: Patient is awake, alert, oriented times three, no apparent distress. Eyes: Conjunctiva clear, pupils equal round and reactive to light. EOM full, Fun dus: not visualized. ENT: No injection noted, moist mucous membrane. Cardiovascular: Regular rate, regular rhythm. Normal S1, S2. 2/6 systolic murmur present, most prominently over the right parasternal second intercostal space. Very difficult to appreciate further for rubs or gallops due to backg round wheezing. Respiratory: Prominent wheezing heard on the bilateral lungs. No rhonchi, wheezes or rubs appreciated. Abdomen: Soft, bowel sounds positive and hyperactive, no bruit, no tenderness, rigidity or guarding noted. Extremities: No clubbing or cyanosis. Mild edema noted on the right lower extremity, no edema noted on the left extremity, no tenderness. Spine: No kyphosis, no para-spinal tenderness, no costovertebral tenderness. Central nervous system (TECHNICAL ANALYST): Awake, alert and fully oriented. Able to answer all the questions and no focal neurological deficits appreciated. Skin: No rashes, lesions, ulcerations, subcutaneous nodules or induration. LABORATORY DATA, IMAGING STUDIES, MICROBIOLOGY: Please see below. -CXR 01/07 @ 0823: Impression "Hypoventilatory change with mild bibasilar atelectasis." -CXR 01/07 @ 1217: Impression "Mildly increasing right basilar atelectasis or infiltrate as compared with earlier the same day." -CTA 01/07 @ 1230: Impression "1. No definite pulmonary embolus identified, allowing for motion which particularly affects evaluation of the right lower lobe. Depending on clinical suspicion, may consider followup attempt at CT or correlation with VQ scan. 2. Partial collapse of the right middle lobe with potential airspace disease relating to pneumonia." -CT ABD/PELVIS 01/07 @ 1230: Impression "1. Mild left-sided hydronephrosis with mild delay of the nephrogram secondary to a 9 mm stone at the ureteropelvic junction. 2. Cholelithiasis, as on 08/22/14, with calcifications in the gallbladder wall, which may be associated with increased risk of neoplasm. 3. Mildly increased extrahepatic biliary ductal dilatation, now with mild intrahepatic biliary ductal dilatation evident. Suggest dedicated evaluation for possible biliary obstruction. 4. Small gas in the urinary bladder, presumably relating to a recent catheterization. Confirm clinically." -CT HEAD 01/07: Impression "No acute intracranial abnormality." Assessment: This is an 84-year-old female patient with history of MS contracted with bladder dysfunction, hyperlipidemia, hypertension who presented to the emergency department complaining of 2 day history of progressive weakness and was found sepsis 2/2 pyelonephritis secondary to left UPJ complete obstructing stone with hydronephrosis with the accompanying mental status changes. She underwent an emergent stent placement to reveal obstruction on 01/08/2020, with subsequent improvement in mental status. Plan: 1. Severe sepsis: 2 x 2 obstructive uropathy causing pyelonephritis, A/P emergent stent placement on 01/07 as well as E.coli bacteremia, resolved. Her WBC is 9.2 [decreased from yesterday], continue to monitor. Escherichia coli grew on board blood culture and urine culture. Antibiotics were switched from Zosyn to 2 g IV ceftriaxone on 01/09. Currently on day #5 of ceftriaxone, and and is on day #6 of antibiotic administration overall. Will eventually switch to by mouth prior to d/c. Echo complete: Report pending Urology performed a cystoscopy and stent placed. He will follow-up in 1-2 weeks following discharge for possible stent removal and stone treatment. 2. E.coli bacteremia: Both initial blood cultures from ED presentation, grew gram-negative rods with identification of Escherichia coli. She had been on Zosyn which was subsequently switched her to 2 mg IV ceftriaxone on 01/09. Will eventually switch to po prior to D/C. Follow-up blood cultures showed no growth after 48 hours. Echo report pending. As above day #5 of ceftriaxone after 1 day of Zosyn. 3. Complete obstructing stone of left UPJ with hydronephrosis: Patient is postop day 6 after stent placement emergently done by urology [Dr. Hansen] on evening of 01/07. Abreu catheter to remains in place and approximately 1 L of urine over the past 24 hours. No blood noted in urine of Abreu bag. He is Will continue IV ceftriaxone and ultimately switched to by mouth antibiotics prior to d/c. 4. Gallbladder pathology: CT abdomen showed cholelithiasis with biliary dilatation. Dr. Parisi, Gen. surgery was consulted and recommended GB ultrasound. GB ultrasound showed significant dilatation of CBD with GB constriction and cholelithiasis. Based on GB ultrasound impression, MRCP was ordered to assess for the distal CBD stone causing the dilation. RECORDING STUDIO SET UP WORKER showed 1.9 cm dilatation of the CBD with no choledocholithiasis as well as cholelithiasis and can stricture gallbladder. As per surgery recommendation to follow up with GI as outpatient for possible ERCP. Per Dr. Parisi of general surgery, no acute surgical intervention is warranted but eventually outpatient follow-up for chronic cholecystitis. Patient tolerating regular diet, no complaints. 5. Hypernatremia: Resolved. Her sodium today is 141. 6. Respiratory wheezing: Patient was given one time dose of DuoNeb nebulizer on 01/09 that she states did little to change wheezing. She continues to deny any shortness of breath, pain with breathing, or increased work of breathing. -She continues to have adequate oxygen saturations on room air. -Will continue to monitor respiratory status - Per patient and family - she is at her baseline. 7. Elevated troponin 2/2 to demand ischemia, type II VA: Troponin trended down after day of presentation, no longer trending. No EKG changes were noted on day of presentation, patient denies any chest pa in. She will require outpatient cardiac workup upon discharge. Continue pravastatin and aspirin 81 mg. 2-D echo done [to assess possible cardiomyopathy/cardiac pathology in the setting of likely type II VA]: Report pending. 8. Multiple sclerosis: -Patient reported to hospital service that over the past few days prior to her presentation in the ED, she did not feel safe at home, most likely due to worsening of her MS. An acute rehabilitation unit screening order was placed on 01/09. PT/OT is also on board evaluating patient. -Upon ultimate discharge from the hospital, patient will need to follow-up with both her primary care physician as well as the provider she sees for her multiple sclerosis. 9. Lactic acidosis 2/2 to severe sepsis: Resolved. 10. Hypertension: Today's patient hypertension was high 180/89 in the morning. We will start her home medication for hypertension amlodipine. 11. Bladder dysfunction: Spoke to Dr. Ruvalcaba urology, regarding the discontinuation of Abreu catheter to run a trial of voiding. 12. DVT prophylaxis: Lovenox 40 MG. Will transfer patient to floor/MedSurg unit as patient no longer requires telemetry. VS,Fishbone, I+O VS, Fishbone, I+O Laboratory Tests 01/14/20 04:58 Vital Signs Date Time Temp Pulse Resp B/P (MAP) Pulse Ox O2 Delivery O2 Flow Rate FiO2 01/14/20 08:47 83 180/98 01/14/20 08:00 97.9 18 96 Room Air 01/09/20 09:01 2.0 01/08/20 14:15 100 I&O- Last 24 Hours up to 6 AM 01/14/20 06:00 Intake Total 1104 ml Output Total 1775 ml Balance -671 ml GME ATTESTATION GME ATTESTATION My faculty preceptor for this patient encounter was physically present during the encounter and was fully available. All aspects of the patient interview, examination, medical decision making process, and medical care plan development were reviewed and approved by the faculty preceptor. The faculty preceptor is aware and concurs with the plan as stated in the body of this note and will attest to such by his/her cosignature. ATTENDING NOTE Patient seen and examined independently. Agree with resident's note. Hayley Mathews MD Jan 14, 2020 10:55 PADDY ZEALYA MD Feb 02, 2020 14:03 KARINA CORDOBA MD Feb 04, 2020 14:14
[2020-01-14] MEDS: SLF 3 ML SYR IV SCH ×2 (13:16→21:16)
--- NOTE | 2020-01-14 13:56 | ECHO ---
DATE OF PROCEDURE: 01/12/2020 Age: 84 Gender: Female Height: 155 cm Weight: 78 kg REFERRING PHYSICIAN: Dr. Moulton. INDICATION: Sepsis, right bundle branch block. MEASUREMENTS: IVS 0.9 cm LV 4.1 cm LVPW 1.0 cm LA 3.4 cm Aorta 2.9 cm RV 2.2 cm IVC 1.9 cm DOPPLER MEASUREMENT Mitral E wave velocity 77 cm/s Mitral A wave velocity 123 cm/s E prime septal 6.6 cm/s E prime lateral 6.4 cm/s FINDINGS: This study was of fair technical quality. The patient is in sinus rhythm with wide QRS complex. Left ventricle is normal size and has hyperdynamic contractility, I estimate ejection fraction (EF) around 65% to 70%. No distinct wall motion abnormalities are appreciated based on fair quality views. Right ventricle also appears to have normal size and systolic function. Left atrium and right atrium appear grossly normal for patients age. Aortic valve is mildly sclerotic, but mobility of cusp is preserved, mitral, tricuspid and pulmonic valves appear grossly normal. No pericardial effusion is noted. Inferior vena cava is upper limits of normal size. Aortic root is normal. Aortic arch and abdominal aorta were not well seen. Doppler interrogation of the aortic valve reveals no stenosis or insufficiency. The same applies for the mitral valve. There is trace tricuspid insufficiency. Calculated pulmonary artery pressure is in the high 20s, corresponding to upper limits of normal values. Pulmonic valve is functionally competent. Mitral inflow pattern and tissue Doppler imaging of the mitral annulus revealed grade 1 diastolic dysfunction. CONCLUSIONS: 1. Study is of acceptable technical quality. Underlying sinus rhythm with wide QRS complex. 2. Normal left ventricular (LV) size with overall hyperdynamic left ventricular (LV) systolic function and grade 1 diastolic dysfunction. 3. No hemodynamically significant valvular disease. 4. Likely normal or borderline elevated central venous pressure and normal or borderline elevated pulmonary artery pressure. MTDD
[2020-01-14 16:00] VITALS: BP 158/78
[2020-01-14 20:00] VITALS: BP 147/69
[2020-01-14 21:06] VITALS: BP 135/76
[2020-01-14] MEDS: COSOPT OCUMETER PLUS 10ML (DORZOLAMIDE/TIMOLOL) OU SCH (21:07)
[2020-01-14 21:09] VITALS: BP 135/76
[2020-01-14] MEDS: ASPIRIN 81 MG ENTERIC TAB PO SCH (21:09)
[2020-01-14] MEDS: PRAVASTATIN 20 MG TAB PO SCH (21:09)
[2020-01-14] MEDS: LATANOPROST 0.005% OPHTH SOLN 2.5 ML OU SCH (21:15)
[2020-01-15] VITALS: BP 154/76
[2020-01-15 04:00] VITALS: BP 147/75
[2020-01-15] MEDS: ACETAMINOPHEN TAB 650MG DOSE (2X325MG) PO PRN (04:45)
[2020-01-15] MEDS: SLF 3 ML SYR IV SCH ×2 (06:08→14:17)
[2020-01-15 08:00] VITALS: BP 146/84
[2020-01-15] MEDS: ENOXAPARIN 40MG/0.4ML SYRINGE (J1650 PER 10MG) SC SCH (08:05)
[2020-01-15] MEDS: COSOPT OCUMETER PLUS 10ML (DORZOLAMIDE/TIMOLOL) OU SCH (08:05)
[2020-01-15 09:35] LABS: BASO # 0.1 10^3/uL (0.0-0.2); BASO % 0.5 % (0.0-1.0); EOS # 0.3 10^3/uL (0.0-0.5); EOS % 2.5 % (0.0-3.0); HEMOGLOBIN 11.7 g/dl (12.0-15.5); LYMPH # 1.8 10^3/uL (1.5-5.0); LYMPH % 16.6 % (24.0-44.0); MEAN CORPUSCULAR HEMOGLOBIN 32.8 pg (27.0-33.0); MEAN CORPUSCULAR HGB CONC 32.5 g/dl (32.0-36.5); MEAN CORPUSCULAR VOLUME 100.8 fl (80.0-96.0); MONO # 0.6 10^3/uL (0.0-0.8); MONO % 5.6 % (0.0-5.0); NEUTROPHILS # 8.1 10^3/uL (1.5-8.5); NEUTROPHILS % 74.3 % (36.0-66.0); PLATELET COUNT, AUTOMATED 347 10^3/uL (150-450); RED BLOOD COUNT 3.57 10^6/uL (4.00-5.40); WHITE BLOOD COUNT 10.9 10^3/uL (4.0-10.0)
[2020-01-15 09:50] LABS: BLOOD UREA NITROGEN 7 MG/DL (7-18); CARBON DIOXIDE LEVEL 26 MEQ/L (21-32); CHLORIDE LEVEL 108 MEQ/L (98-107); CREATININE FOR GFR 0.56 MG/DL (0.55-1.30); GLOMERULAR FILTRATION RATE > 60.0 (>32); GLUCOSE, FASTING 160 MG/DL (70-100); POTASSIUM SERUM 3.7 MEQ/L (3.5-5.1); SODIUM LEVEL 143 MEQ/L (136-145)
[2020-01-15] MEDS: cefTRIAXone SOD 2 GM in D5W MINI-BAG PLUS 50 ML IV SCH (11:51)
[2020-01-15] MEDS ORDERED: CEFD1CAP8 PO (13:12)
[2020-01-15 16:00] VITALS: BP 152/74
--- NOTE | 2020-01-15 18:52 | DS.PDOC ---
Discharge Summary General Date of Admission Jan 08, 2020 at 11:10 Date of Discharge Jan 15, 2020 Primary Care Physician: Sherri Rojas Attending Physician: TOOTIE WILSON MD Discharge Summary PROCEDURES PERFORMED DURING STAY: None. ADMITTING DIAGNOSES: Rhabdomyolysis. UTI Sepsis secondary to pyelonephritis vs gallbladder pathology - Multiple sclerosisdiagnosed 25 years ago. - Hypertension - Hyperlipidemia - Osteoporosis DISCHARGE DIAGNOSES: - Pyelonephritis status post stent placement by urology later. - Multiple sclerosis Pretension Hyperlipidemia Osteoporosis COMPLICATIONS/CHIEF COMPLAINT: Rhabdomyoysis, Uti. HISTORY OF PRESENT ILLNESS: Ms. Samuels is an 84 -year-old female patient who has a history of MS complicated with bladder dysfunction and right-sided weakness that presented to the emergency department brought in by EMS as she was on floor at home and unable to get up and not responsive. On arrival to the ED workup was significant for UA with positive nitrates and leukocyte esterase concerning for UTI. During initial examination her mental status and respiratory status clinically decline was found to have progressive hypotension with a MAP <70 HOSPITAL COURSE: She was admitted to the hospital. During which she got a CT revealing in 9 mm left UPJ stone with hydronephrosis and infected urine and a urology was consulted and performed cystoscopic with stent placement. She was having severe sepsis secondary to obstructive uropathy causing pyelonephritis. Initially got Zosyn and later switched to ceftriaxone as she was growing Escherichia coli on both blood cultures. She had elevated troponin when she came in most likely secondary to demand ischemia type II [place] and the troponin were trending down and has no EKG changes. He did get an echocardiogram during that admission. Surgery was consulted for her presence of incidental gallstones and elevated liver function test with abdominal distention. She did have dilated CBD although she did not appear to have ascending cholangitis and her LFT are more supportive of chronic cholecystitis she did get an MRCP done. The surgery they recommended an decompression or ERCP as an outpatient procedure as it is not an urgent or emergent need for intervention at that point of time. DISCHARGE MEDICATIONS: Please see below. ALLERGIES: Please see below. PHYSICAL EXAMINATION ON DISCHARGE: VITAL SIGNS: Please see below. General: Patient is awake, alert, oriented times three, no apparent distress. Eyes: Conjunctiva clear, pupils equal round and reactive to light. EOM full, Fundus: not visualized. ENT: No injection noted, moist mucous membrane. Cardiovascular: Regular rate, regular rhythm. Normal S1, S2. 2/6 systolic murmur present, most prominently over the right parasternal second intercostal space. Very difficult to appreciate further for rubs or gallops due to background wheezing. Respiratory: Prominent wheezing heard on the bilateral lungs. No rhonchi, whee zes or rubs appreciated. Abdomen: Soft, bowel sounds positive and hyperactive, no bruit, no tenderness, rigidity or guarding noted. Extremities: No clubbing or cyanosis. Mild edema noted on the right lower extremity, no edema noted on the left extremity, no tenderness. Central nervous system (LPN RN): Awake, alert and fully oriented. Able to answer all the questions and no focal neurological deficits appreciated. Skin: No rashes, lesions, ulcerations, subcutaneous nodules or induration. LABORATORY DATA: Please see below. IMAGING: -CXR 01/07 @ 0823: Impression "Hypoventilatory change with mild bibasilar atelectasis." -CXR 01/07 @ 1217: Impression "Mildly increasing right basilar atelectasis or infiltrate as compared with earlier the same day." -CTA 01/07 @ 1230: Impression "1. No definite pulmonary embolus identified, allowing for motion which particularly affects evaluation of the right lower lobe. Depending on clinical suspicion, may consider followup attempt at CT or correlation with VQ scan. 2. Partial collapse of the right middle lobe with potential airspace disease relating to pneumonia." -CT ABD/PELVIS 01/07 @ 1230: Impression "1. Mild left-sided hydronephrosis with mild delay of the nephrogram secondary to a 9 mm stone at the ureteropelvic junction. 2. Cholelithiasis, as on 08/22/14, with calcifications in the gallbladder wall, which may be associated with increased risk of neoplasm. 3. Mildly increased extrahepatic biliary ductal dilatation, now with mild intrah epatic biliary ductal dilatation evident. Suggest dedicated evaluation for possible biliary obstruction. 4. Small gas in the urinary bladder, presumably relating to a recent catheterization. Confirm clinically." -CT HEAD 01/07: Impression "No acute intracranial abnormality." - Echocardiogram: Impression 1. Study is of acceptable technical quality. Underlying sinus rhythm with wide QRS complex. 2. Normal left ventricular (LV) size with overall hyperdynamic left ventricular (LV) systolic function and grade 1 diastolic dysfunction. 3. No hemodynamically significant valvular disease. 4. Likely normal or borderline elevated central venous pressure and normal or borderline elevated pulmonary artery pressure PROGNOSIS: Good ACTIVITY: As tolerated. DIET: Low-sodium diet DISCHARGE PLAN: She is being discharged to ARU. DISPOSITION: To discharge home, and patient DISCHARGE INSTRUCTIONS: 1. Continue her cefdinir 300 mg capsule by mouth twice a day for 10 days. 2. Continue home oral medications. ITEMS TO FOLLOWUP ON ON OUTPATIENT: 1. Follow-up with PCP after discharge from ARU and 3-5 days. 2. Follow up with urology in 1-2 weeks after discharge for stent removal and further management. 3. Return to the ER if you experience any problems DISCHARGE CONDITION: Stable. TIME SPENT ON DISCHARGE: Greater than 50 minutes. Vital Signs/I&Os Vital Signs Date Time Temp Pulse Resp B/P (MAP) Pulse Ox O2 Delivery O2 Flow Rate FiO2 01/15/20 08:00 146/84 (104) 01/15/20 04:00 97.8 85 18 98 Room Air 01/09/20 09:01 2.0 l I&O- Last 24 Hours up to 6 AM 01/15/20 06:00 Intake Total 560 ml Output Total 0 ml Balance 560 ml Laboratory Data Labs 24H Laboratory Tests 2 01/15/20 09:13: Immature Granulocyte % (Auto) 0.5, Neutrophils (%) (Auto) 74.3H, Lymphocytes (%) (Auto) 16.6L, Monocytes (%) (Auto) 5.6H, Eosinophils (%) (Auto) 2.5, Basophils (%) (Auto) 0.5, Neutrophils # (Auto) 8.1, Lymphocytes # (Auto) 1.8, Monocytes # (Auto) 0.6, Eosinophils # (Auto) 0.3, Basophils # (Auto) 0.1, Nucleated Red Blood Cells % (auto) 0.0, Anion Gap 9, Glomerular Filtration Rate > 60.0, Calcium Level 9.0 CBC/BMP Laboratory Tests 01/15/20 09:13 Microbiology Microbiology 01/09/20 Blood Culture - Final, Complete NO GROWTH AFTER 5 DAYS 01/09/20 Blood Culture - Final, Complete NO GROWTH AFTER 5 DAYS 01/08/20 Urine Culture - Final, Complete Escherichia Coli 01/08/20 Blood Culture - Final, Complete Escherichia Coli 01/08/20 Blood Culture - Final, Complete Escherichia Coli Discharge Medications Scheduled Amlodipine Besylate (Amlodipine Besylate) 5 Mg Tablet, 5 MG PO QHS, (Reported) Aspirin (Aspir 81) 81 Mg Tablet.dr, 81 MG PO QHS, (Reported) Cefdinir (Cefdinir) 300 Mg Capsule, 1 CAP PO BID Diphenoxylate HCl/Atropine (Lomotil 2.5-0.025 mg Tablet) 1 Each Tablet, 1 TAB PO DAILY, (Reported) Dorzolamide HCl/Timolol Maleat (Dorzolamide-Timolol Eye Drops) 10 Ml Drops, 1 D ROP OU BID, (Reported) Gabapentin (Gabapentin) 300 Mg Capsule, 300 MG PO QHS, (Reported) Losartan Potassium (Losartan Potassium) 100 Mg Tablet, 100 MG PO QHS, (Reported) Oxybutynin Chloride (Oxybutynin Chloride) 5 Mg Tablet, 5 MG PO BID, (Reported) Potassium Chloride (Potassium Chloride) 10 Meq Capsule.er, 10 MEQ PO DAILY, (Reported) Pravastatin Sodium (Pravastatin Sodium) 20 Mg Tablet, 20 MG PO QHS, (Reported) Travoprost (Travatan Z) 0.004% 2.5ML Drops, 1 DROP OU QHS, (Reported) Allergies Coded Allergies: No Known Allergies (Verified , 11/13/02) GME ATTESTATION GME ATTESTATION My faculty preceptor for this patient encounter was physically present during the encounter and was fully available. All aspects of the patient interview, examination, medical decision making process, and medical care plan development were reviewed and approved by the faculty preceptor. The faculty preceptor is aware and concurs with the plan as stated in the body of this note and will attest to such by his/her cosignature. ATTENDING NOTE I, Tootie Wilson, have independently examined this patient and performed my own physical exam, as well as reviewed the documentation and edited where necessary. I have discussed in detail with the resident / student the findings and plan of treatment as documented by the resident / student and edited their note. I agree with their findings and treatment plan and have edited their documentation. I will continue to follow the patient during this hospital stay. Time spent on discharge 36 minutes Hayley Mathews MD Jan 15, 2020 14:44 TOOTIE WILSON MD Jan 16, 2020 11:31
== END 2020-01-15 17:42 | DRG 853 ==
LOC: M ED 08:15 → EDBD 08:15 → M ED INP 11:10 → ENRESERV 11:20 → M ICU 15:41 → M PCU 01-09 15:25
PROVIDERS: ADMIT Internal Medicine; ATTEND Internal Medicine
PROC: 0T778DZ Dilation of Left Ureter with Intraluminal Device, Via Natural or Artificial Opening Endoscopic (ICD-10-PCS; principal; 2020-01-08 17:30)
DX: A41.51 Sepsis due to Escherichia coli [E. coli] (principal); I21.A1 Myocardial infarction type 2; G93.41 Metabolic encephalopathy; N13.6 Pyonephrosis; E87.2 Acidosis; M62.82 Rhabdomyolysis; E87.0 Hyperosmolality and hypernatremia; R65.20 Severe sepsis without septic shock; G35 Multiple sclerosis; M81.0 Age-related osteoporosis without current pathological fracture; E78.5 Hyperlipidemia, unspecified; Z79.899 Other long term (current) drug therapy; Z79.82 Long term (current) use of aspirin; Z85.3 Personal history of malignant neoplasm of breast; Z92.3 Personal history of irradiation; Z92.21 Personal history of antineoplastic chemotherapy; I10 Essential (primary) hypertension; K21.9 Gastro-esophageal reflux disease without esophagitis; K80.20 Calculus of gallbladder without cholecystitis without obstruction

== ENCOUNTER 2020-01-15 15:38 | Inpatient (IN) | payer MEDICARE, OTHER ==
[~2020-01-15] VITALS: Ht 157.5 cm; Wt 73.9 kg
[~2020-01-15 15:38] MED LIST changes: +AMLO1TAB24 PO; +ASPI81TA86 PO; +CEFD1CAP8 PO; +DORZ2SOL5 OU; +GABA-843 PO; +LOMO2.5T PO; +LOSA100T50 PO; +OXYB5TAB10 PO; -PHENYLephrine HCL 500 MCG/5 ML (100MCG/ML) SYRINGE (J2370) ONE; +POTA10CA32 PO; +PRAV20TA2 PO; +TRAV04OPD OU; -ePHEDrine SULFATE 25 MG/5 ML(5MG/ML) SYRINGE ONE
[2020-01-15 17:50] VITALS: BP 147/88
[2020-01-15] MEDS ORDERED: ALBUTEROL 90 MCG/ACT 8GM HFA INHALER INH PRN (18:30)
[2020-01-15 20:00] VITALS: BP 163/94
--- NOTE | 2020-01-15 20:04 | HPEPDOC ---
Substance Abuse Rn Note DATE OF ADMISSION: 01/15/2020 DATE OF SERVICE: 01/15/2020 TIME OF ADMISSION: Please refer to physician's admission order. SOURCE OF ADMISSION INFORMATION: Patient and medical record reasonable historian ADMITTING DIAGNOSES: MS Neurogenic bladder. UTI with infected Nephrolithiasis. E.Coli Sepsis Rhabdomyolysis Cholelithiasis. Hydronephrosis Hypertension. HLD. Osteoporosis. History right breast cancer status post mastectomy, chemotherapy, radiation Possible Pneumonia vs atelectasis CHIEF COMPLAINT: Generalized weakness, pain. HISTORY OF PRESENT ILLNESS: This is an 84-year-old hypertensive lady with history of MS, right hemiparesis, osteoporosis, neurogenic bladder, who was admitted through the emergency room after slipping on the floor due to increasing weakness. Initial workup, notable for profound leukocytosis with escalation of WBC from 16 to 24. She was found to be positive for UTI with subsequent altered mental status, respiratory decompensation and hypotension. Subsequent workup revealed rhabdomyololysis, pyelonephritis, hydronephrosis with obstructing renal stones, leading to severe E. Coli sepsis confirmed with Blood Cultures x 2 01.08.2020, requiring subsequent cystoscopy, left stent placement on 01/08/[address] Tapan Hansen urology. Patient also had elevation of troponin level secondary to demand ischemia. Type II MA without associated angina or EKG changes. Further consultation was sought with Dr. Parisi, surgery for gallstones and elevated liver function studies and abdominal distention. CT scan notable with calcifications in the bladder wall enlargement of common bile duct, she was not felt to be a surgical candidate. Additional workup was noted for chest x-ray consistent with bibasilar atelectasis subsequently changed to partial left right middle lobe with interspace disease related to possible pneumonia. CT head noted for no intracranial abnormality. Escherichia coli was positive on blood culture and urine culture and she was changed from initial Zosyn to Ceftriaxone 01/04. At the time of discharge troponins were noted to be trending down. However, further cardiac workup is recommended as an out patient. ECHO noted EF 65-70%% and: 1. Study is of acceptable technical quality. Underlying sinus rhythm with wide QRS complex. 2. Normal left ventricular (LV) size with overall hyperdynamic left ventricular (LV) systolic function and grade 1 diastolic dysfunction. 3. No hemodynamically significant valvular disease. 4. Likely normal or borderline elevated central venous pressure and normal or borderline elevated pulmonary artery pressure. REVIEW OF SYSTEMS: The following is a completed review of systems and has been reviewed.. PAIN: Manageable at about 3/10 EYES: No recent vision changes. EARS, NOSE, & THROAT: No throat pain, or dysphagia, or rhinorrhea. CARDIOVASCULAR: Denies chest pain or palpitations. PULMONARY: Admits to wheezing. GASTROINTESTINAL: Denies constipation admits to loose stools GENITOURINARY: . MUSCULOSKELETAL: . NEUROLOGICAL:. HEMATOLOGICAL: . SKIN: . PSYCHIATRIC: Unremarkable. All other review of systems found to be negative. PAST MEDICAL HISTORY: MS 25 years. Neurogenic bladder. Hypertension. HLD. Osteoporosis. History of right breast cancer PAST SURGICAL HISTORY: mastectomy right breast carcinoma. Hysterectomy. Tonsillectomy. Appendectomy ALLERGIES: NKDA Please see below. MEDICATIONS: Please see below. FAMILY HISTORY: Father 79 cardiac issues, Mother 79 Breast Cancer. SOCIAL HISTORY: . Non Smoker, No EtOH, lives [address] DIET:regular. PHYSICAL EXAMINATION: VITAL SIGNS: Please see below. GENERAL: Pleasant and cooperative. Mild distress. Alert and oriented times three. HEENT: PERRL. Extraocular movements intact. Clear conjunctiva, no adenopathy or thyromegaly. Full cervical range of motion without tenderness or spasm. Oropharynx benign. CARDIOVASCULAR: Distant heart sounds, tachycardia LUNGS: Coarse breath sounds, expiratory wheezes. No rhonchi. ABDOMEN: Soft, nontender, obese. Positive bowel sounds. Normal active bowel sounds NEUROLOGICAL: Alert and oriented times three. Cranial nerves II through XII intact. Sensation grossly intact. 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 SKIN: rash tape reaction over right upper thoracic regionskin. LABORATORY DATA: Please see below. WBC 10.9, hemoglobin 11.7, hematocrit 36, creatinine 0.56 IMAGING:Imaging documentation noted above FUNCTIONAL STATUS: Premorbid: Independent with all activities of daily life as well as mobility. On Admission: . Minimal assistance for bathing, upper body dressing, bed chair and wheelchair transfers, toilet transfers, ambulation. Minimum assistance for grooming. Supervision for memory and problem solving. Modified independence for social interaction, expression, comprehension, bowel and bladder. GOALS: Mod I for ADLs, mobility and self-care activities ASSESSMENT:84-year-old lady with past medical history of MS and mild right hemiparesis who presents status post fall with subsequent rhabdomyolysis, sepsis related to pyelonephritis, nephrolithiasis and obstructive uropathy, MA, cholelithiasis, PLAN: 1. Rehab- PT/OT advance gait and ADLs, strengthen/stretch/maintain ROM all 4limbs, energy conservation, family training 2. Cardiac rehab, lower intensity building endurance focus, daily weights, medicine consulted to assist in overall management --HLD c/u statin 3. Resp- breathing treatments as needed, recheck chest x-ray, covered with antibiotics for issues, continue to monitor for worsening infection or need for oxygen supplementation 4. GI Gallstones, surgery not currently felt indicated, continue monitoring ppx- 5. DVT ppx- on Lovenox 6. -stones, stent monitor output, continue antibiotics 7.GI optimize diet usually takes Fibercon BID as part of bowel program, will continue 8. Pain- Tylenol and usual meds prn 9. Dispo-home with and supportive friends POST ADMISSION PHYSICIAN EVALUATION: Medical and functional status: Description of medical status, medical assessment: As above. Rehabilitation diagnosis and current and prior cold morbid medical conditions as above. Risk of complications and plans to mitigate them as above. Description of functional status current status is as above. Prior status as above. Status compared to preadmission: There are no clinically significant differences between the patient's current status and the information described on the preadmission screening document. Treatment plan anticipated: Treatment plan is as described above. Required disciplines including physical therapy, occupational therapy, others as noted above]. Intensity of services: hours a day, days a week. Special considerations: There are no specific special or safety considerations that would likely preclude immediate implementation of an intensive rehabilitation program or subsequently influence the plan of care. ATTESTATION: Considering all the information above, it is my best judgment that this patient requires intensive rehabilitation therapy as described above and an inpatient hospital environment due to the complexity of nursing, medical, and rehabilitation needs required by the patient. Furthermore, this patient can reasonably be expected to participate in an benefit from an inpatient rehabi litation stay with an interdisciplinary team approach to the delivery of rehabilitation care under the direction and supervision of rehabilitation physician. PROGNOSIS: Excellent. ESTIMATED LENGTH OF STAY:7-10 days. PROJECTED DISCHARGE DESTINATION: Home with family support and any durable medical equipment required to increase functional safety and mobility. TIME SPENT COUNSELING AND COORDINATING INITIAL CARE: Greater than 60 minutes. Vital Signs Vital Sign - Last 24 Hours 01/15/20 17:50 Temp 97.2 Pulse 95 Resp 20 B/P (MAP) 147/88 (107) Pulse Ox 98 O2 Delivery Room Air Home Medications Scheduled Amlodipine Besylate (Amlodipine Besylate) 5 Mg Tablet, 5 MG PO QHS, (Reported) Aspirin (Aspir 81) 81 Mg Tablet.dr, 81 MG PO QHS, (Reported) Cefdinir (Cefdinir) 300 Mg Capsule, 1 CAP PO BID Diphenoxylate HCl/Atropine (Lomotil 2.5-0.025 mg Tablet) 1 Each Tablet, 1 TAB PO DAILY, (Reported) Dorzolamide HCl/Timolol Maleat (Dorzolamide-Timolol Eye Drops) 10 Ml Drops, 1 DROP OU BID, (Reported) Gabapentin (Gabapentin) 300 Mg Capsule, 300 MG PO QHS, (Reported) Losartan Potassium (Losartan Potassium) 100 Mg Tablet, 100 MG PO QHS, (Reported) Oxybutynin Chloride (Oxybutynin Chloride) 5 Mg Tablet, 5 MG PO BID, (Reported) Potassium Chloride (Potassium Chloride) 10 Meq Capsule.er, 10 MEQ PO DAILY, (Reported) Pravastatin Sodium (Pravastatin Sodium) 20 Mg Tablet, 20 MG PO QHS, (Reported) Travoprost (Travatan Z) 0.004% 2.5ML Drops, 1 DROP OU QHS, (Reported) Allergies Coded Allergies: No Known Allergies (Verified , 11/13/02) A-FIB/CHADSVASC A-FIB History Current/History of A-Fib/PAF?: No Current PO Anticoag Therapy: Yes Age/Risk Factor Scoring CHADSVASC: CHADSVASC Response (Comments) Value Age Risk Factor Age >/= 75 years old 2 Total 2 Treatment Treatment ordered: NONE DEWEY UNDERWOOD MD Jan 15, 2020 19:59
[2020-01-15] MEDS ORDERED: CEFDINIR 300 MG CAP (OMNICEF) PO SCH (21:00)
[2020-01-15] MEDS: DOCUSATE SODIUM 100 MG CAP PO SCH ×2 (21:00→21:19)
[2020-01-15] MEDS: PRAVASTATIN 20 MG TAB PO SCH (21:19)
[2020-01-15] MEDS: GABAPENTIN 300 MG CAP PO SCH (21:19)
[2020-01-15] MEDS: oxyBUTYnin 5 MG TAB PO SCH (21:19)
[2020-01-15] MEDS: FIBER-CON 625 MG TAB PO SCH (21:19)
[2020-01-15] MEDS: LOSARTAN 50MG TABLET PO SCH (21:19)
[2020-01-15] MEDS: amLODIPine 5 MG TAB PO SCH (21:20)
[2020-01-15] MEDS: LATANOPROST 0.005% OPHTH SOLN 2.5 ML OU SCH (21:20)
[2020-01-15] MEDS: COSOPT OCUMETER PLUS 10ML (DORZOLAMIDE/TIMOLOL) OU SCH (21:20)
[2020-01-15 23:21] VITALS: BP 137/65
[2020-01-16 06:00] VITALS: BP 146/83
[2020-01-16 06:30] LABS: BASO # 0.1 10^3/uL (0.0-0.2); EOS # 0.2 10^3/uL (0.0-0.5); EOS % 2.9 % (0.0-3.0); HEMATOCRIT 33.4 % (36.0-47.0); HEMOGLOBIN 10.8 g/dl (12.0-15.5); LYMPH # 1.9 10^3/uL (1.5-5.0); LYMPH % 22.9 % (24.0-44.0); MEAN CORPUSCULAR HGB CONC 32.3 g/dl (32.0-36.5); MEAN CORPUSCULAR VOLUME 102.1 fl (80.0-96.0); MONO # 0.9 10^3/uL (0.0-0.8); MONO % 11.5 % (0.0-5.0); NEUTROPHILS # 4.9 10^3/uL (1.5-8.5); NEUTROPHILS % 60.7 % (36.0-66.0); PLATELET COUNT, AUTOMATED 317 10^3/uL (150-450); RED BLOOD COUNT 3.27 10^6/uL (4.00-5.40); WHITE BLOOD COUNT 8.1 10^3/uL (4.0-10.0)
--- NOTE | 2020-01-16 06:50 | REP ---
INDICATION: wheezing and dyspnea COMPARISON: 01/08/2020 TECHNIQUE: Portable upright AP view of the chest FINDINGS: Examination is limited by poor inspiratory effort. Blunting to the left diaphragmatic surface and costophrenic angle suggests small left pleural effusion and atelectasis. Remainder of lung ballard are well aerated and clear. No pneumothorax. Cardiac silhouette is normal. Skeletal structures are intact. IMPRESSION: Limited examination demonstrating small left pleural effusion and left basilar atelectasis. <Electronically signed by Jose Randolph > 01/16/20 0642
[2020-01-16 07:07] LABS: ALBUMIN 2.1 GM/DL (3.2-5.2); ALT/SGPT 19 U/L (12-78); BILIRUBIN,TOTAL 0.7 MG/DL (0.2-1.0); BLOOD UREA NITROGEN 9 MG/DL (7-18); CALCIUM LEVEL 9.2 MG/DL (8.8-10.2); CARBON DIOXIDE LEVEL 27 MEQ/L (21-32); CHLORIDE LEVEL 108 MEQ/L (98-107); CREATININE FOR GFR 0.53 MG/DL (0.55-1.30); GLOMERULAR FILTRATION RATE > 60.0 (>32); GLUCOSE, FASTING 96 MG/DL (70-100); SODIUM LEVEL 142 MEQ/L (136-145); TOTAL PROTEIN 6.1 GM/DL (6.4-8.2)
[2020-01-16] MEDS: ENOXAPARIN 40MG/0.4ML SYRINGE (J1650 PER 10MG) SC SCH (09:04)
[2020-01-16] MEDS: FIBER-CON 625 MG TAB PO SCH ×2 (09:04→20:30)
[2020-01-16] MEDS: oxyBUTYnin 5 MG TAB PO SCH ×2 (09:04→20:30)
[2020-01-16] MEDS: ASPIRIN 81 MG ENTERIC TAB PO SCH (09:04)
[2020-01-16] MEDS: DOCUSATE SODIUM 100 MG CAP PO SCH ×2 (09:05→20:29)
[2020-01-16] MEDS: POTASSIUM CHLORIDE 10 MEQ SR TABLET PO SCH (09:05)
[2020-01-16] MEDS: COSOPT OCUMETER PLUS 10ML (DORZOLAMIDE/TIMOLOL) OU SCH ×2 (09:09→20:31)
--- NOTE | 2020-01-16 10:53 | IPNPDOC ---
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 Apparently laid on the floor for quite some time. She often does when she is unable to get up. Initial workup, notable for profound leukocytosis with escalation of WBC from 16 to 24. She was found to be positive for UTI with subsequent altered mental status, respiratory decompensation and hypotension. Subsequent workup revealed rhabdomyololysis, pyelonephritis, hydronephrosis with obstructing renal stones, leading to severe E. Coli sepsis confirmed with Blood Cultures x 2 01.08.2020, requiring subsequent cystoscopy, left stent placement on 01/08/[address] Tapan Hansen urology. . Escherichia coli was positive on blood cultures x2 and urine culture and she was changed from initial Zosyn to Ceftriaxone 01/04, consideration given for shift to PO meds held as patient was noted to be wheezing with dyspnea at time of arrival to the unit. Chest x-ray last night revealed atelectasis and slight left pleural effusion, no evidence of pneumonia. Well reassess today, discuss with hospitalist team again and consider change to PO antibiotics. Patient also had elevation of troponin level secondary to demand ischemia. Type II TX without associated angina or EKG changes. At the time of discharge troponins were noted to be trending down. However, further cardiac workup is recommended as an out patient. ECHO noted EF 65-70%. Further consultation was sought with Dr. Parisi, surgery for gallstones and elevated liver function studies and abdominal distention. CT scan notable with calcifications in the bladder wall enlargement of common bile duct, she was not felt to be a surgical candidate. Additional workup was noted for chest x-ray consistent with bibasilar atelectasis subsequently changed to partial left right middle lobe with interspace disease related to possible pneumonia. CT head noted for no intracranial abnormality ALLERGIES: See Below MEDICATIONS: Reviewed, see below. REVIEW OF SYSTEMS: The following is a completed review of systems and has been reviewed. PAIN: Manageable at about 3/10 EYES: No recent vision changes. EARS, NOSE, & THROAT: No throat pain, or dysphagia, or rhinorrhea. CARDIOVASCULAR: Denies chest pain or palpitations. PULMONARY: Admits to wheezing. GASTROINTESTINAL: Denies constipation admits to loose stools GENITOURINARY: . MUSCULOSKELETAL: . NEUROLOGICAL:. HEMATOLOGICAL: . SKIN: . PSYCHIATRIC: Unremarkable. All other review of systems found to be negative. PHYSICAL EXAMINATION: VITAL SIGNS: Please see below. GENERAL: Pleasant and cooperative. Less distress. HEENT: PERRL. Extraocular movements intact. Clear conjunctiva, no adenopathy or thyromegaly. Full cervical range of motion without tenderness or spasm. Oropharynx benign. CARDIOVASCULAR: Less Distant heart sounds S1 S2 II/ SM LUNGS: Coarse breath sounds diminished at bases, No further expiratory wheezes. No rhonchi. ABDOMEN: Soft, nontender, obese. Positive bowel sounds. Normal active bowel sounds NEUROLOGICAL: Cranial nerves II through XII intact. Sensation grossly intact. 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 SKIN: rash tape reaction over right upper thoracic region. FUNCTIONAL STATUS: Baseline completely independent in all activities of daily living skills. Transfers moderate assistance. Ambulation with rolling walker, minimal to moderate assistance. LABORATORY DATA: Reviewed. Please see below. Noted WBC 8.1, hemoglobin 10.8, hematocrit 33.4 MICROBIOLOGY: Please see below. IMAGING: CXRY 01.15.2020 Decreased lung volumes, atelectasis, small left pleural effusion. ASSESSMENT AND PLAN: MS w R abhi, fatigue Neurogenic bladder. UTI s/p stent for removal infected obstructing stone, relieving hydronephrosis stable on anbitiotics. E.Coli Sepsis Rhabdomyolysis Cholelithiasis. Hydronephrosis Hypertension. HLD. Osteoporosis. History right breast cancer status post mastectomy, chemotherapy, radiation Possible Pneumonia vs atelectasis/effusion 1. Rehab- PT/OT advance gait and ADLs, strengthen/stretch/maintain ROM all 4limbs, energy conservation, family training 2. Cardiac rehab, lower intensity building endurance focus, daily weights, medicine consulted to assist in overall management --HLD c/u statin 3. Resp- breathing treatments as needed, covered with antibiotics for issues if anything brewing, continue to monitor for worsening infection or need for oxygen supplementation, encourage incentive spirometry. 4. GI Gallstones, surgery not currently felt indicated, continue monitoring, low-fat diet suggested optimize diet usually takes Fibercon BID as part of bowel program, will continue 5. DVT ppx- on Lovenox 6. -stones, stent monitor output, continue antibiotics 7. Pain- Tylenol and usual meds prn 8. Dispo-home with and supportive friends TIME SPENT: Chart Review, examination and documentation 30 minutes. Allergies Coded Allergies: No Known Allergies (Verified , 11/13/02) Vital Signs Vital Signs Date Time Temp Pulse Resp B/P (MAP) Pulse Ox O2 Delivery O2 Flow Rate FiO2 01/16/20 06:00 98.2 79 19 146/83 (104) 97 Room Air Laboratory Data CBC/BMP Laboratory Tests 01/16/20 06:16 Labs 24H Laboratory Tests 2 01/16/20 06:16: Immature Granulocyte % (Auto) 1.0, Neutrophils (%) (Auto) 60.7, Lymphocytes (%) (Auto) 22.9L, Monocytes (%) (Auto) 11.5H, Eosinophils (%) (Auto) 2.9, Basophils (%) (Auto) 1.0, Neutrophils # (Auto) 4.9, Lymphocytes # (Auto) 1.9, Monocytes # (Auto) 0.9H, Eosinophils # (Auto) 0.2, Basophils # (Auto) 0.1, Nucleated Red Blood Cells % (auto) 0.0, Anion Gap 7L, Glomerular Filtration Rate > 60.0, Calcium Level 9.2, Total Bilirubin 0.7, Aspartate Amino Transf (AST/SGOT) 14, Alanine Aminotransferase (ALT/SGPT) 19, Alkaline Phosphatase 67, Total Protein 6.1L, Albumin 2.1L, Albumin/Globulin Ratio 0.5L Current Medications Current Medications Current Medications Medications (Trade) Dose Ordered Sig/Lorene Route PRN Reason Start Time Stop Time Status Last Admin Dose Admin Acetaminophen (Tylenol Tab) 650 mg Q4HP PRN PO MILD PAIN (PS 1-4) 01/15/20 16:15 Albuterol Sulfate (Proventil, Ventolin Hfa) 2 puff Q6HP PRN INH SHORTNESS OF BREATH 01/15/20 18:30 Amlodipine Besylate (Norvasc) 5 mg DAILY@2100 PO 01/15/20 21:00 10/20/20 21:20 Aspirin (Ecotrin) 81 mg DAILY PO 01/16/20 09:00 01/16/20 09:04 Calcium Polycarbophil (Fiber Con) 1 ea BID PO 01/15/20 21:00 01/16/20 09:04 Cefdinir (Omnicef) 300 mg BID PO 01/15/20 21:00 01/15/20 19:01 DC Ceftriaxone Sodium 2 gm/ Dextrose 50 ml @ 50 mls/hr Q24H IV 01/16/20 12:00 Docusate Sodium (Colace) 100 mg BID PO 01/15/20 21:00 01/16/20 09:05 Dorzolamide/ Timolol (Cosopt Ocumeter Plus) 1 drop BID OU 01/15/20 21:00 01/16/20 09:09 Enoxaparin Sodium (Lovenox) 40 mg DAILY SC 01/16/20 09:00 01/16/20 09:04 Gabapentin (Neurontin) 300 mg QHS PO 01/15/20 21:00 01/15/20 21:19 Home Med (Med Rec Complete!) ASDIRECTED XX 01/15/20 17:45 01/15/20 18:15 DC Latanoprost (Xalatan 0.005% Op Soln) 1 drop QHS OU 01/15/20 21:00 01/15/20 21:20 Losartan Potassium (Cozaar) 100 mg QHS PO 01/15/20 21:00 01/15/20 21:19 Oxybutynin Chloride (Ditropan) 5 mg BID PO 01/15/20 21:00 01/16/20 09:04 Potassium Chloride (Micro-K Extencaps) 10 meq DAILY PO 01/16/20 09:00 01/16/20 09:05 Pravastatin Sodium (Pravachol) 20 mg QHS PO 01/15/20 21:00 01/15/20 21:19 DEWEY UNDERWOOD MD Jan 16, 2020 10:53
[2020-01-16] MEDS: cefTRIAXone SOD 2 GM in D5W MINI-BAG PLUS 50 ML IV SCH (12:14)
[2020-01-16] MEDS: OMEPRAZOLE 20 MG CAP PO SCH ×2 (12:14→20:30)
[2020-01-16 14:00] VITALS: BP 117/58
[2020-01-16] MEDS: ACETAMINOPHEN TAB 650MG DOSE (2X325MG) PO PRN (15:40)
[2020-01-16 20:30] VITALS: BP 125/67
[2020-01-16] MEDS: amLODIPine 5 MG TAB PO SCH (20:30)
[2020-01-16] MEDS: PRAVASTATIN 20 MG TAB PO SCH (20:30)
[2020-01-16] MEDS: GABAPENTIN 300 MG CAP PO SCH (20:30)
[2020-01-16] MEDS: LATANOPROST 0.005% OPHTH SOLN 2.5 ML OU SCH (20:31)
[2020-01-16] MEDS: LOSARTAN 50MG TABLET PO SCH (20:31)
[2020-01-17 06:20] VITALS: BP 137/79
[2020-01-17 07:27] LABS: CPK CREATINE PHOSPHOKINASE 19 U/L (26-192)
[2020-01-17] MEDS: DOCUSATE SODIUM 100 MG CAP PO SCH ×2 (09:20→21:06)
[2020-01-17] MEDS: ASPIRIN 81 MG ENTERIC TAB PO SCH (09:20)
[2020-01-17] MEDS: oxyBUTYnin 5 MG TAB PO SCH ×2 (09:20→21:06)
[2020-01-17] MEDS: FIBER-CON 625 MG TAB PO SCH ×2 (09:20→21:06)
[2020-01-17] MEDS: ENOXAPARIN 40MG/0.4ML SYRINGE (J1650 PER 10MG) SC SCH (09:20)
[2020-01-17] MEDS: POTASSIUM CHLORIDE 10 MEQ SR TABLET PO SCH (09:20)
[2020-01-17] MEDS: OMEPRAZOLE 20 MG CAP PO SCH ×2 (09:21→21:06)
[2020-01-17] MEDS: COSOPT OCUMETER PLUS 10ML (DORZOLAMIDE/TIMOLOL) OU SCH ×2 (09:22→21:11)
[2020-01-17] MEDS: ACETAMINOPHEN TAB 650MG DOSE (2X325MG) PO PRN ×2 (09:55→17:20)
[2020-01-17] MEDS: cefTRIAXone SOD 2 GM in D5W MINI-BAG PLUS 50 ML IV SCH (12:03)
[2020-01-17 14:00] VITALS: BP 117/60
--- NOTE | 2020-01-17 14:56 | IPNPDOC ---
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 CTA negative for PE, Chest x-ray on admission to ARU revealed atelectasis and slight left pleural effusion, no evidence of pneumonia. She gives to have episodic wheezing, responding to respiratory therapy treatments does not require oxygen. She has adjusted well to the unit is participating as best she can, still fatigues quite easily. She experienced this slide to the floor this afternoon landing on her bottom. No injuries. Decision was made by the team to work more from a wheelchair level until she gains greater stability. Legs are being wrapped to do bilateral lower extremity edema. The patient and her family are interested in her ultimate transfer to [place]. There there will be greater family support better weather and arrangement is underway to coordinate continuity of care. MEDICATIONS: Reviewed see below. Will shift from IV ceftriaxone to Oral cefdinir tomorrow, progressive treatment warranted due to multiple sites of infection, general debility and underlying autoimmune dysfunction. REVIEW OF SYSTEMS: The following is a completed review of systems and has been reviewed. PAIN: Manageable at about 3/10 EYES: No recent vision changes. EARS, NOSE, & THROAT: No throat pain, or dysphagia, or rhinorrhea. CARDIOVASCULAR: Denies chest pain or palpitations. PULMONARY: Admits to wheezing. GASTROINTESTINAL: Denies constipation admits to loose stools GENITOURINARY: . Frequency MUSCULOSKELETAL: No new complaints. NEUROLOGICAL:. Generalized weakness, history of MS SKIN: Resolving rash PSYCHIATRIC: Unremarkable. All other review of systems found to be negative. PHYSICAL EXAMINATION: VITAL SIGNS: Please see below. GENERAL: Pleasant and cooperative. Less distress. HEENT: PERRL. Extraocular movements intact. Clear conjunctiva, no adenopathy or thyromegaly. Full cervical range of motion without tenderness or spasm. Oropharynx benign. CARDIOVASCULAR: Less Distant heart sounds S1 S2 II/ SM LUNGS: Coarse breath sounds diminished at bases, No further expiratory wheezes. No rhonchi. ABDOMEN: Soft, nontender, obese. Positive bowel sounds. Normal active bowel sounds NEUROLOGICAL: Cranial nerves II through XII intact. Sensation grossly intact. EXTREMITIES: 5 /5 load mixer, elbow flexion, elbow extension, knee extension, foot dorsiflexion, plantar flexion. No tenderness hip girdle. Marked bilateral lower extremity edema. SKIN: rash tape reaction over right upper thoracic region, improving. FUNCTIONAL STATUS: Baseline completely independent in all activities of daily living skills. Transfers moderate assistance. Ambulation with rolling walker, minimal to moderate assistance. Significant falls risk due to decreased proprioception, balance and endurance issues. LABORATORY DATA: Reviewed. Please see below. Noted WBC 8.1, hemoglobin 10.8, hematocrit 33.4 MICROBIOLOGY: Please see below. IMAGING: CXRY 01.15.2020 Decreased lung volumes, atelectasis, small left pleural effusion. ASSESSMENT AND PLAN: MS w fluctuating R abhi, fatigue Neurogenic bladder. UTI s/p stent for removal infected obstructing stone, relieving hydronephrosis stable on anbitiotics. E.Coli Sepsis Rhabdomyolysis. CK now normal low 19 Cholelithiasis. Hydronephrosis Hypertension. HLD. Osteoporosis. Anemia. Hypoalbuminemia History right breast cancer status post mastectomy, chemotherapy, radiation Possible Pneumonia vs atelectasis/effusion This is an 84-year-old hypertensive lady with history of MS, right hemiparesis, osteoporosis, neurogenic bladder, sustained a ground-level floor layer with her underlying MS, and hemiparesis. Apparently laid on the floor for quite some time. She often does when she is unable to get up. Initial workup notable for profound leukocytosis with escalation of WBC from 16 to 24. She was found to be positive for UTI with subsequent altered mental status, respiratory decompensation and hypotension. Subsequent workup reportedly revealed rhabdomyololysis, pyelonephritis, hydronephrosis with obstructing renal stones, leading to severe E. Coli sepsis confirmed with Blood Cultures x 2 01.08.2020, requiring subsequent cystoscopy, left stent placement on 01/08/[address] Tapan Hansen urology. . Escherichia coli was positive on blood cultures x2 and urine culture and she was changed from initial Zosyn to Ceftriaxone 01/04, consideration given for shift to PO meds held as patient was noted to be wheezing with dyspnea at time of arrival to the unit she continues on Ceftriaxone and will shift to PO Cefdinir tomorrow. Patient also had elevation of troponin level secondary to demand ischemia. Type II WI without associated angina or EKG changes. At the time of discharge troponins were noted to be trending down. However, further cardiac workup is recommended as an out patient. ECHO noted EF 65-70%. Further consultation was sought with Dr. Parisi, surgery for gallstones and elevated liver function studies and abdominal distention. CT scan notable with calcifications in the bladder wall enlargement of common bile duct, she was not felt to be a surgical candidate. Additional workup was noted for chest x-ray consistent with bibasilar atelectasis subsequently changed to partial left right middle lobe with interspace disease related to possible pneumonia. Follow chest x-ray on admission to the rehabilitation unit notes small pleural effusions. CT head noted for no intracranial abnormality. She is stable and participating well in her various therapy programs. 1. Rehab- PT/OT advance gait and ADLs, strengthen/stretch/maintain ROM all 4limbs, energy conservation, family training 2. Status post WI, Cardiac rehab, lower intensity building endurance focus, daily weights, medicine consulted to assist in overall management --HLD c/u statin 3. Resp- breathing treatments as needed, covered with antibiotics for issues if anything brewing, continue to monitor for worsening infection or need for oxygen supplementation, encourage incentive spirometry breathing treatments as indicated. 4. GI Gallstones, surgery not currently felt indicated, continue monitoring, low-fat diet suggested optimize diet with protein supplementation, usually takes Fibercon BID as part of bowel program, will continue 5. DVT ppx- on Lovenox 6. -stones, stent monitor output, continue antibiotics to coordinate post discharge follow-up urologist 7. Pain- Tylenol and usual meds prn 8. Dispo-home with and supportive friends . Ultimately to daughter and family in [place] TIME SPENT: Chart Review, examination and documentation 30 minutes. Allergies Coded Allergies: No Known Allergies (Verified , 11/13/02) Vital Signs Vital Signs Date Time Temp Pulse Resp B/P (MAP) Pulse Ox O2 Delivery O2 Flow Rate FiO2 01/17/20 14:00 97.1 102 19 117/60 (79) 95 Room Air Current Medications Current Medications Current Medications Medications (Trade) Dose Ordered Sig/Lorene Route PRN Reason Start Time Stop Time Status Last Admin Dose Admin Acetaminophen (Tylenol Tab) 650 mg Q4HP PRN PO MILD PAIN (PS 1-4) 01/15/20 16:15 01/17/20 09:55 Albuterol Sulfate (Proventil, Ventolin Hfa) 2 puff Q6HP PRN INH SHORTNESS OF BREATH 01/15/20 18:30 Amlodipine Besylate (Norvasc) 5 mg DAILY@2100 PO 01/15/20 21:00 01/16/20 20:30 Aspirin (Ecotrin) 81 mg DAILY PO 01/16/20 09:00 01/17/20 09:20 Calcium Polycarbophil (Fiber Con) 1 ea BID PO 01/15/20 21:00 01/17/20 09:20 Cefdinir (Omnicef) 300 mg BID PO 01/15/20 21:00 01/15/20 19:01 DC Ceftriaxone Sodium 2 gm/ Dextrose 50 ml @ 50 mls/hr Q24H IV 01/16/20 12:00 01/17/20 12:03 Docusate Sodium (Colace) 100 mg BID PO 01/15/20 21:00 01/17/20 09:20 Dorzolamide/ Timolol (Cosopt Ocumeter Plus) 1 drop BID OU 01/15/20 21:00 01/17/20 09:22 Enoxaparin Sodium (Lovenox) 40 mg DAILY SC 01/16/20 09:00 01/17/20 09:20 Gabapentin (Neurontin) 300 mg QHS PO 01/15/20 21:00 01/16/20 20:30 Home Med (Med Rec Complete!) ASDIRECTED XX 01/15/20 17:45 01/15/20 18:15 DC Latanoprost (Xalatan 0.005% Op Soln) 1 drop QHS OU 01/15/20 21:00 01/16/20 20:31 Losartan Potassium (Cozaar) 100 mg QHS PO 01/15/20 21:00 01/16/20 20:31 Omeprazole (PriLOSEC) 20 mg BID PO 01/16/20 09:00 01/17/20 09:21 Oxybutynin Chloride (Ditropan) 5 mg BID PO 01/15/20 21:00 01/17/20 09:20 Potassium Chloride (Micro-K Extencaps) 10 meq DAILY PO 01/16/20 09:00 01/17/20 09:20 Pravastatin Sodium (Pravachol) 20 mg QHS PO 01/15/20 21:00 01/16/20 20:30 DEWEY UNDERWOOD MD Jan 17, 2020 14:56
[2020-01-17 20:15] VITALS: BP 139/92
[2020-01-17] MEDS: GABAPENTIN 300 MG CAP PO SCH (21:06)
[2020-01-17] MEDS: PRAVASTATIN 20 MG TAB PO SCH (21:06)
[2020-01-17] MEDS: CEFDINIR 300 MG CAP (OMNICEF) PO SCH (21:06)
[2020-01-17] MEDS: LOSARTAN 50MG TABLET PO SCH (21:07)
[2020-01-17] MEDS: amLODIPine 5 MG TAB PO SCH (21:08)
[2020-01-17] MEDS: LATANOPROST 0.005% OPHTH SOLN 2.5 ML OU SCH (21:11)
[2020-01-18 06:03] VITALS: BP 139/73
[2020-01-18 06:29] LABS: HEMATOCRIT 31.8 % (36.0-47.0); MEAN CORPUSCULAR HEMOGLOBIN 32.1 pg (27.0-33.0); MEAN CORPUSCULAR HGB CONC 31.4 g/dl (32.0-36.5); MEAN CORPUSCULAR VOLUME 101.9 fl (80.0-96.0); PLATELET COUNT, AUTOMATED 356 10^3/uL (150-450); RED BLOOD COUNT 3.12 10^6/uL (4.00-5.40); WHITE BLOOD COUNT 8.7 10^3/uL (4.0-10.0)
--- NOTE | 2020-01-18 08:30 | IPNPDOC ---
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 CTA negative for PE, Chest x-ray on admission to ARU revealed atelectasis and slight left pleural effusion, no evidence of pneumonia. She was having episodic wheezing, responding to respiratory therapy treatments does not require oxygen. She has adjusted well to the unit is participating as best she can, still fatigues quite easily. Yesterday she had a slide to the floor landing on her bottom. No injuries. No complaints of pain this morning. Decision was made by the team to work more from a wheelchair level until she gains greater stability. Legs are being wrapped to do bilateral lower extremity edema. The patient and her family are interested in her ultimate transfer to [place]. There there will be greater family support better weather and arrangement is underway to coordinate continuity of care. MEDICATIONS: Reviewed see below. Today shift from IV ceftriaxone to Oral cefdinir . Extensive treatment warranted due to multiple sites of infection, general debility and underlying autoimmune dysfunction. REVIEW OF SYSTEMS: The following is a completed review of systems and has been reviewed. PAIN: Manageable at about 3/10 EYES: No recent vision changes. EARS, NOSE, & THROAT: No throat pain, or dysphagia, or rhinorrhea. CARDIOVASCULAR: Denies chest pain or palpitations. PULMONARY: Admits to wheezing occasionally. GASTROINTESTINAL: Denies constipation. Regular bowel movements. GENITOURINARY: . Frequency MUSCULOSKELETAL: No new complaints. NEUROLOGICAL:. Generalized weakness, history of MS SKIN: Resolving rash PSYCHIATRIC: Unremarkable. All other review of systems found to be negative. PHYSICAL EXAMINATION: VITAL SIGNS: Please see below. GENERAL: Pleasant and cooperative. Less distress. HEENT: PERRL. Extraocular movements intact. Clear conjunctiva, no adenopathy or thyromegaly. Full cervical range of motion without tenderness or spasm. Oropharynx benign. . CARDIOVASCULAR: Less Distant heart sounds S1 S2 II/ SM LUNGS: Coarse breath sounds diminished at bases, No further expiratory wheezes. No rhonchi. ABDOMEN: Soft, nontender, obese. Positive bowel sounds. Normal active bowel sounds NEUROLOGICAL: Cranial nerves II through XII intact. Sensation grossly intact. EXTREMITIES: 5 /5 press bucker, elbow flexion, elbow extension, knee extension, foot dorsiflexion, plantar flexion. No tenderness hip girdle. Less severe bilateral lower extremity edema. SKIN: Macular raised, erythematous area right supraclavicular thoracic outlet re gion, probable rash tape reaction. FUNCTIONAL STATUS: Baseline completely independent in all activities of daily living skills. Pt. continues to be limited in ambulation distance and stair negotiation due to strength and endurance deficits. Achieves 25ft ambulation CGA and requires [place] this date to complete 3 6" stairs due to difficulty clearing right LE onto step; may benefit from trial leading with right LE when ascending the stairs. Also recommending continued emphasis on strength and endurance. Transfers moderate assistance. Significant falls risk due to decreased proprioception, balance and endurance issues as evidenced by yesterday's episode. LABORATORY DATA: Reviewed. Please see below. MICROBIOLOGY: Please see below. IMAGING: CXRY 01.15.2020 Decreased lung volumes, atelectasis, small left pleural effusion. ASSESSMENT AND PLAN: MS w fluctuating R abhi, fatigue Neurogenic bladder. UTI s/p stent for removal infected obstructing stone, relieving hydronephrosis stable on anbitiotics. E.Coli Sepsis Rhabdomyolysis. CK now normal low 19 Cholelithiasis. Hydronephrosis Hypertension. HLD. Osteoporosis. Anemia. Hypoalbuminemia History right breast cancer status post mastectomy, chemotherapy, radiation Possible Pneumonia vs atelectasis/effusion This is an 84-year-old hypertensive lady with history of MS, right hemiparesis, osteoporosis, neurogenic bladder, sustained a ground-level floor hand with her underlying MS, and hemiparesis. Apparently laid on the floor for quite some time. She often does when she is unable to get up. Initial workup notable for profound leukocytosis with escalation of WBC from 16 to 24. She was found to be positive for UTI with subsequent altered mental status, respiratory decompensation and hypotension. Subsequent workup reportedly revealed rhabdomyololysis , now resolved with normal CK, however persisting myalgias and severe fatigue and limited endurance. She also had pyelonephritis, hydronephrosis with obstructing renal stones, l eading to severe E. Coli sepsis confirmed with Blood Cultures x 2 01.08.2020, requiring subsequent cystoscopy, left stent placement on 01/08/[address] Tapan Hansen urology. Escherichia coli was positive on blood cultures x2 and urine culture and she was changed from initial Zosyn to Ceftriaxone 01/04, t was noted to be wheezing with dyspnea at time of arrival to the unit she will shift to PO Cefdinir today. Patient also had elevation of troponin level secondary to demand ischemia. Type II [place] without associated angina or EKG changes. At the time of discharge troponins were noted to be trending down. However, further cardiac workup is recommended as an out patient. ECHO noted EF 65-70%. Further consultation was sought with Dr. Parisi, surgery for gallstones and elevated liver function studies and abdominal distention. CT scan notable with calcifications in the bladder wall enlargement of common bile duct, she was not felt to be a surgical candidate. Additional workup was noted for chest x-ray consistent with bibasilar atelectasis subsequently changed to partial left right middle lobe with interspace disease related to possible pneumonia. Follow chest x-ray on admission to the rehabilitation unit notes small pleural effusions. CT head noted for no intracranial abnormality. She is stable and participating well in her various therapy programs. 1. Rehab- PT/OT advance gait and ADLs, strengthen/stretch/maintain ROM all 4limbs, energy conservation, family training, no apparent adverse effects from yesterday's slide to the floor. 2. Status post [place], Cardiac rehab, lower intensity building endurance focus, daily weights, medicine consulted to assist in overall management --HLD c/u statin 3. Resp- breathing treatments as needed, covered with antibiotics for issues if anything brewing, continue to monitor for worsening infection or need for oxygen supplementation, encourage incentive spirometry breathing treatments as indicated. 4. GI Gallstones, surgery not currently felt indicated, continue monitoring, low-fat diet suggested optimize diet with protein supplementation, usually takes Fibercon BID as part of bowel program, will continue 5. DVT ppx- on Lovenox 6. -stones, stent monitor output, continue antibiotics to coordinate post discharge follow-up urologist 7. Pain- Tylenol and usual meds prn 8. Dispo-home with and supportive friends . Ultimately to daughter and family in [place] TIME SPENT: Chart Review, examination and documentation 30 minutes. Allergies Coded Allergies: No Known Allergies (Verified , 11/13/02) Vital Signs Vital Signs Date Time Temp Pulse Resp B/P (MAP) Pulse Ox O2 Delivery O2 Flow Rate FiO2 01/18/20 06:03 98.3 84 18 139/73 (95) 94 Room Air Laboratory Data CBC/BMP Laboratory Tests 01/18/20 06:18 Labs 24H Laboratory Tests 2 01/18/20 06:18: Nucleated Red Blood Cells % (auto) 0.0 Current Medications Current Medications Current Medications Medications (Trade) Dose Ordered Sig/Lorene Route PRN Reason Start Time Stop Time Status Last Admin Dose Admin Acetaminophen (Tylenol Tab) 650 mg Q4HP PRN PO MILD PAIN (PS 1-4) 01/15/20 16:15 01/17/20 17:20 Albuterol Sulfate (Proventil, Ventolin Hfa) 2 puff Q6HP PRN INH SHORTNESS OF BREATH 01/15/20 18:30 Amlodipine Besylate (Norvasc) 5 mg DAILY@2100 PO 01/15/20 21:00 01/17/20 21:08 Aspirin (Ecotrin) 81 mg DAILY PO 01/16/20 09:00 01/17/20 09:20 Calcium Polycarbophil (Fiber Con) 1 ea BID PO 01/15/20 21:00 01/17/20 21:06 Cefdinir (Omnicef) 300 mg BID PO 01/15/20 21:00 01/15/20 19:01 DC Cefdinir (Omnicef) 300 mg BID PO 01/17/20 21:00 01/21/20 11:00 01/17/20 21:06 Ceftriaxone Sodium 2 gm/ Dextrose 50 ml @ 50 mls/hr Q24H IV 01/16/20 12:00 01/17/20 12:03 Docusate Sodium (Colace) 100 mg BID PO 01/15/20 21:00 01/17/20 21:06 Dorzolamide/ Timolol (Cosopt Ocumeter Plus) 1 drop BID OU 01/15/20 21:00 01/17/20 21:11 Enoxaparin Sodium (Lovenox) 40 mg DAILY SC 01/16/20 09:00 01/17/20 09:20 Gabapentin (Neurontin) 300 mg QHS PO 01/15/20 21:00 01/17/20 21:06 Home Med (Med Rec Complete!) ASDIRECTED XX 01/15/20 17:45 01/15/20 18:15 DC Latanoprost (Xalatan 0.005% Op Soln) 1 drop QHS OU 01/15/20 21:00 01/17/20 21:11 Losartan Potassium (Cozaar) 100 mg QHS PO 01/15/20 21:00 01/17/20 21:07 Omeprazole (PriLOSEC) 20 mg BID PO 01/16/20 09:00 01/17/20 21:06 Oxybutynin Chloride (Ditropan) 5 mg BID PO 01/15/20 21:00 01/17/20 21:06 Potassium Chloride (Micro-K Extencaps) 10 meq DAILY PO 01/16/20 09:00 01/17/20 09:20 Pravastatin Sodium (Pravachol) 20 mg QHS PO 01/15/20 21:00 01/17/20 21:06 DEWEY UNDERWOOD MD Jan 18, 2020 08:30
[2020-01-18] MEDS: POTASSIUM CHLORIDE 10 MEQ SR TABLET PO SCH (08:44)
[2020-01-18] MEDS: FIBER-CON 625 MG TAB PO SCH ×2 (08:44→21:44)
[2020-01-18] MEDS: ENOXAPARIN 40MG/0.4ML SYRINGE (J1650 PER 10MG) SC SCH (08:44)
[2020-01-18] MEDS: oxyBUTYnin 5 MG TAB PO SCH ×2 (08:44→21:44)
[2020-01-18] MEDS: ASPIRIN 81 MG ENTERIC TAB PO SCH (08:44)
[2020-01-18] MEDS: OMEPRAZOLE 20 MG CAP PO SCH ×2 (08:44→21:44)
[2020-01-18] MEDS: CEFDINIR 300 MG CAP (OMNICEF) PO SCH ×2 (08:44→21:44)
[2020-01-18] MEDS: DOCUSATE SODIUM 100 MG CAP PO SCH ×2 (08:45→21:44)
[2020-01-18] MEDS: COSOPT OCUMETER PLUS 10ML (DORZOLAMIDE/TIMOLOL) OU SCH ×2 (08:45→21:47)
[2020-01-18] MEDS: HYDROCORTISONE 1% CREAM 30 GM TOP SCH (10:21)
[2020-01-18] MEDS: cefTRIAXone SOD 2 GM in D5W MINI-BAG PLUS 50 ML IV SCH (12:27)
[2020-01-18 14:00] VITALS: BP 118/73
[2020-01-18 20:00] VITALS: BP 148/80
[2020-01-18] MEDS: PRAVASTATIN 20 MG TAB PO SCH (21:44)
[2020-01-18] MEDS: GABAPENTIN 300 MG CAP PO SCH (21:44)
[2020-01-18] MEDS: amLODIPine 5 MG TAB PO SCH (21:45)
[2020-01-18] MEDS: LOSARTAN 50MG TABLET PO SCH (21:45)
[2020-01-18] MEDS: LATANOPROST 0.005% OPHTH SOLN 2.5 ML OU SCH (21:47)
[2020-01-19 06:05] VITALS: BP 147/74
[2020-01-19] MEDS: FIBER-CON 625 MG TAB PO SCH ×2 (08:30→20:50)
[2020-01-19] MEDS: ASPIRIN 81 MG ENTERIC TAB PO SCH (08:30)
[2020-01-19] MEDS: CEFDINIR 300 MG CAP (OMNICEF) PO SCH ×2 (08:30→20:51)
[2020-01-19] MEDS: OMEPRAZOLE 20 MG CAP PO SCH ×2 (08:30→20:51)
[2020-01-19] MEDS: ENOXAPARIN 40MG/0.4ML SYRINGE (J1650 PER 10MG) SC SCH (08:31)
[2020-01-19] MEDS: POTASSIUM CHLORIDE 10 MEQ SR TABLET PO SCH (08:31)
[2020-01-19] MEDS: HYDROCORTISONE 1% CREAM 30 GM TOP SCH (08:31)
[2020-01-19] MEDS: oxyBUTYnin 5 MG TAB PO SCH ×2 (08:31→20:51)
[2020-01-19] MEDS: COSOPT OCUMETER PLUS 10ML (DORZOLAMIDE/TIMOLOL) OU SCH ×2 (08:31→20:53)
[2020-01-19] MEDS: DOCUSATE SODIUM 100 MG CAP PO SCH ×2 (08:32→20:50)
[2020-01-19] MEDS: cefTRIAXone SOD 2 GM in D5W MINI-BAG PLUS 50 ML IV SCH (12:01)
[2020-01-19] MEDS: ACETAMINOPHEN TAB 650MG DOSE (2X325MG) PO PRN (12:01)
[2020-01-19 14:00] VITALS: BP 128/72
[2020-01-19 20:00] VITALS: BP 142/80
[2020-01-19] MEDS: LOSARTAN 50MG TABLET PO SCH (20:50)
[2020-01-19] MEDS: amLODIPine 5 MG TAB PO SCH (20:50)
[2020-01-19] MEDS: PRAVASTATIN 20 MG TAB PO SCH (20:51)
[2020-01-19] MEDS: LATANOPROST 0.005% OPHTH SOLN 2.5 ML OU SCH (20:53)
[2020-01-19] MEDS: GABAPENTIN 300 MG CAP PO SCH (21:28)
[2020-01-20 06:38] VITALS: BP 159/77
[2020-01-20] MEDS: FIBER-CON 625 MG TAB PO SCH ×2 (08:16→21:40)
[2020-01-20] MEDS: CEFDINIR 300 MG CAP (OMNICEF) PO SCH ×2 (08:16→21:38)
[2020-01-20] MEDS: ASPIRIN 81 MG ENTERIC TAB PO SCH (08:16)
[2020-01-20] MEDS: OMEPRAZOLE 20 MG CAP PO SCH ×2 (08:16→21:38)
[2020-01-20] MEDS: HYDROCORTISONE 1% CREAM 30 GM TOP SCH (08:17)
[2020-01-20] MEDS: oxyBUTYnin 5 MG TAB PO SCH ×2 (08:17→21:38)
[2020-01-20] MEDS: ENOXAPARIN 40MG/0.4ML SYRINGE (J1650 PER 10MG) SC SCH (08:17)
[2020-01-20] MEDS: POTASSIUM CHLORIDE 10 MEQ SR TABLET PO SCH (08:17)
[2020-01-20] MEDS: DOCUSATE SODIUM 100 MG CAP PO SCH ×2 (08:18→21:00)
[2020-01-20] MEDS: COSOPT OCUMETER PLUS 10ML (DORZOLAMIDE/TIMOLOL) OU SCH ×2 (08:18→21:40)
[2020-01-20 14:00] VITALS: BP 134/80
[2020-01-20] MEDS: ACETAMINOPHEN TAB 650MG DOSE (2X325MG) PO PRN (16:16)
[2020-01-20 20:15] VITALS: BP 139/72
[2020-01-20] MEDS: PRAVASTATIN 20 MG TAB PO SCH (21:38)
[2020-01-20] MEDS: GABAPENTIN 300 MG CAP PO SCH (21:39)
[2020-01-20] MEDS: LOSARTAN 50MG TABLET PO SCH (21:39)
[2020-01-20] MEDS: amLODIPine 5 MG TAB PO SCH (21:39)
[2020-01-20] MEDS: LATANOPROST 0.005% OPHTH SOLN 2.5 ML OU SCH (21:40)
[2020-01-21 06:01] VITALS: BP 140/88
[2020-01-21] MEDS: DOCUSATE SODIUM 100 MG CAP PO SCH ×2 (09:00→20:27)
--- NOTE | 2020-01-21 09:15 | IPNPDOC ---
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 CTA negative for PE, Chest x-ray on admission to ARU revealed atelectasis and slight left pleural effusion, no evidence of pneumonia. She was having episodic wheezing, responding to respiratory therapy treatments does not require oxygen. She has adjusted well to the unit is participating as best she can, still fatigues quite easily. Last week she had a slide to the floor landing on her bottom. No injuries. Decision was made by the team to work more from a wheelchair level until she gains greater stability. Legs are being wrapped due to bilateral lower extremity edema. The patient and her family are interested in her ultimate transfer to [place]. There there will be greater family support better weather and arrangement is underway to coordinate continuity of care. We need follow-up from urology service on plan regarding stent. MEDICATIONS: Reviewed see below. Last week shifted to Oral cefdinir . Extensive treatment warranted due to multiple sites of infection, general debility and underlying autoimmune dysfunction. REVIEW OF SYSTEMS: The following is a completed review of systems and has been reviewed. PAIN: Manageable at about 3/10 EYES: No recent vision changes. EARS, NOSE, & THROAT: No throat pain, or dysphagia, or rhinorrhea. CARDIOVASCULAR: Denies chest pain or palpitations. PULMONARY: Admits to wheezing occasionally. GASTROINTESTINAL: Denies constipation. Regular bowel movements. GENITOURINARY: . Frequency MUSCULOSKELETAL: No new complaints. NEUROLOGICAL:. Generalized weakness, history of MS SKIN: Resolving rash PSYCHIATRIC: Unremarkable. All other review of systems found to be negative. PHYSICAL EXAMINATION: VITAL SIGNS: Please see below. GENERAL: Pleasant and cooperative. Less distress. HEENT: PERRL. Extraocular movements intact. Clear conjunctiva, no adenopathy or thyromegaly. Full cervical range of motion without tenderness or spasm. Oropharynx benign. . CARDIOVASCULAR: Less Distant heart sounds S1 S2 II/ SM LUNGS: Coarse breath sounds diminished at bases, No further expiratory wheezes. No rhonchi. ABDOMEN: Soft, nontender, obese. Positive bowel sounds. Normal active bowel sounds NEUROLOGICAL: Cranial nerves II through XII intact. Sensation grossly intact. EXTREMITIES: 5 /5 grid trimmer, elbow flexion, elbow extension, knee extension, foot dorsiflexion, plantar flexion. No tenderness hip girdle. bilateral lower extremity edema, required leg wrapping. SKIN: Macular raised, erythematous area right supraclavicular thoracic outlet region, probable rash tape reaction. FUNCTIONAL STATUS: Pt. continues to be limited in ambulation distance and stair negotiation due to strength and endurance deficits. While moment to moment. Strength testing appears adequate, she fatigues rapidly and remains at a falls risk. Achieves 25ft ambulation CGA and requires Eleazar to complete 3 -6" stairs due to difficulty clearing right LE onto step; working on leading with right LE when ascending the stairs. Continue to build strength and endurance. Significant falls risk as evidenced by last weeks episode, due to decreased proprioception, balance and endurance issues as evidenced by yesterday's episode. LABORATORY DATA: Reviewed. Please see below. WBC stable 7.5 and H/H stable MICROBIOLOGY: Please see below. IMAGING: CXRY 01.15.2020 Decreased lung volumes, atelectasis, small left pleural effusion. ASSESSMENT AND PLAN: MS w fluctuating R abhi, fatigue Neurogenic bladder. UTI s/p stent for removal infected obstructing stone, relieving hydronephrosis stable on anbitiotics. E.Coli Sepsis Rhabdomyolysis. CK now normal low 19 Cholelithiasis. Hydronephrosis Hypertension. HLD. Osteoporosis. Anemia. 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 nitial workup notable for profound leukocytosis with escalation of WBC from 16 to 24. She was found to be positive for UTI with subsequent altered mental status, respiratory decompensation and hypotension. Subsequent workup reportedly revealed rhabdomyololysis , now resolved with normal CK, however persisting myalgias and severe fatigue and limited endurance. She also had pyelonephritis, hydronephrosis with obstructing renal stones, leading to severe E. Coli sepsis confirmed with Blood Cultures x 2 01.08.2020, requiring subsequent cystoscopy, left stent placement on 01/08/[address] Tapan Hansen urology. Escherichia coli was positive on blood cultures x2 and urine culture and she was changed from initial Zosyn to Ceftriaxone 01/04, t was noted to be wheezing with dyspnea at time of arrival to the unit she shifted to PO Cefdinir last week. Patient also had elevation of troponin level secondary to demand ischemia. Type II [place] without associated angina or EKG changes. At the time of discharge troponins were noted to be trending down. No further cardiac complaints. However, further cardiac workup is recommended as an out patient. ECHO noted EF 65-70%. Further consultation was sought with Dr. Parisi, surgery for gallstones and elevated liver function studies and abdominal distention. CT scan notable with calcifications in the bladder wall enlargement of common bile duct, she was not felt to be a surgical candidate. Additional workup was noted for chest x-ray consistent with bibasilar atelectasis subsequently changed to partial left right middle lobe with interspace disease related to possible pneumonia. Follow chest x-ray on admission to the rehabilitation unit notes small pleural effusions. CT head noted for no intracranial abnormality. She is stable and participating well in her various therapy programs. 1. Rehab- PT/OT advance gait and ADLs, strengthen/stretch/maintain ROM all 4limbs, energy conservation, family training, no apparent adverse effects from yesterday's slide to the floor. 2. Status post IN, Cardiac rehab, lower intensity building endurance focus, daily weights, medicine consulted to assist in overall management combo of MS and Cardovascular issues contribute to easy fatigueability, need for careful balanced strengthening to not further aggravate MS or Cardiac symptoms. --HLD c/u statin 3. Resp- breathing treatments as needed, covered with antibiotics for issues if anything brewing, continue to monitor for worsening infection or need for oxygen supplementation, encourage incentive spirometry breathing treatments as indicated. 4. GI Gallstones, surgery not currently felt indicated, continue monitoring, low-fat diet suggested optimize diet with protein supplementation, usually takes Fibercon BID as part of bowel program, will continue 5. DVT ppx- on Lovenox 6. -stones, stent monitor output, continue antibiotics to coordinate post discharge follow-up urologist 7. Pain- Tylenol and usual meds prn 8. Dispo-home with and supportive friends . Ultimately to daughter and family in [place] Allergies Coded Allergies: No Known Allergies (Verified , 11/13/02) Vital Signs Vital Signs Date Time Temp Pulse Resp B/P (MAP) Pulse Ox O2 Delivery O2 Flow Rate FiO2 01/21/20 06:01 97.1 81 17 140/88 (105) 96 Room Air Current Medications Current Medications Current Medications Medications (Trade) Dose Ordered Sig/Lorene Route PRN Reason Start Time Stop Time Status Last Admin Dose Admin Acetaminophen (Tylenol Tab) 650 mg Q4HP PRN PO MILD PAIN (PS 1-4) 01/15/20 16:15 01/20/20 16:16 Albuterol Sulfate (Proventil, Ventolin Hfa) 2 puff Q6HP PRN INH SHORTNESS OF BREATH 01/15/20 18:30 Amlodipine Besylate (Norvasc) 5 mg DAILY@2100 PO 01/15/20 21:00 01/20/20 21:39 Aspirin (Ecotrin) 81 mg DAILY PO 01/16/20 09:00 01/20/20 08:16 Calcium Polycarbophil (Fiber Con) 1 ea BID PO 01/15/20 21:00 01/20/20 21:40 Cefdinir (Omnicef) 300 mg BID PO 01/15/20 21:00 01/15/20 19:01 DC Cefdinir (Omnicef) 300 mg BID PO 01/17/20 21:00 01/21/20 11:00 01/20/20 21:38 Ceftriaxone Sodium 2 gm/ Dextrose 50 ml @ 50 mls/hr Q24H IV 01/16/20 12:00 01/20/20 11:11 DC 01/19/20 12:01 Docusate Sodium (Colace) 100 mg BID PO 01/15/20 21:00 01/18/20 21:44 Dorzolamide/ Timolol (Cosopt Ocumeter Plus) 1 drop BID OU 01/15/20 21:00 01/20/20 21:40 Enoxaparin Sodium (Lovenox) 40 mg DAILY SC 01/16/20 09:00 01/20/20 08:17 Gabapentin (Neurontin) 300 mg QHS PO 01/15/20 21:00 01/20/20 21:39 Home Med (Med Rec Complete!) ASDIRECTED XX 01/15/20 17:45 01/15/20 18:15 DC Hydrocortisone (Hydrocortisone 1% Cream) 1 dose DAILY TOP 01/18/20 09:00 01/20/20 08:17 Latanoprost (Xalatan 0.005% Op Soln) 1 drop QHS OU 01/15/20 21:00 01/20/20 21:40 Losartan Potassium (Cozaar) 100 mg QHS PO 01/15/20 21:00 01/20/20 21:39 Omeprazole (PriLOSEC) 20 mg BID PO 01/16/20 09:00 01/20/20 21:38 Oxybutynin Chloride (Ditropan) 5 mg BID PO 01/15/20 21:00 01/20/20 21:38 Potassium Chloride (Micro-K Extencaps) 10 meq DAILY PO 01/16/20 09:00 01/20/20 08:17 Pravastatin Sodium (Pravachol) 20 mg QHS PO 01/15/20 21:00 01/20/20 21:38 DEWEY UNDERWOOD MD Jan 21, 2020 09:10
[2020-01-21] MEDS: CEFDINIR 300 MG CAP (OMNICEF) PO SCH (09:29)
[2020-01-21] MEDS: POTASSIUM CHLORIDE 10 MEQ SR TABLET PO SCH (09:29)
[2020-01-21] MEDS: ASPIRIN 81 MG ENTERIC TAB PO SCH (09:29)
[2020-01-21] MEDS: oxyBUTYnin 5 MG TAB PO SCH ×2 (09:29→20:28)
[2020-01-21] MEDS: FIBER-CON 625 MG TAB PO SCH ×2 (09:29→20:28)
[2020-01-21] MEDS: OMEPRAZOLE 20 MG CAP PO SCH ×2 (09:29→20:28)
[2020-01-21] MEDS: ENOXAPARIN 40MG/0.4ML SYRINGE (J1650 PER 10MG) SC SCH (09:30)
[2020-01-21] MEDS: HYDROCORTISONE 1% CREAM 30 GM TOP SCH (09:37)
[2020-01-21] MEDS: COSOPT OCUMETER PLUS 10ML (DORZOLAMIDE/TIMOLOL) OU SCH ×2 (09:37→20:29)
[2020-01-21 12:09] LABS: HEMATOCRIT 38.2 % (36.0-47.0); HEMOGLOBIN 11.7 g/dl (12.0-15.5); MEAN CORPUSCULAR HEMOGLOBIN 31.8 pg (27.0-33.0); MEAN CORPUSCULAR HGB CONC 30.6 g/dl (32.0-36.5); MEAN CORPUSCULAR VOLUME 103.8 fl (80.0-96.0); PLATELET COUNT, AUTOMATED 464 10^3/uL (150-450); RED BLOOD COUNT 3.68 10^6/uL (4.00-5.40); WHITE BLOOD COUNT 7.5 10^3/uL (4.0-10.0)
[2020-01-21 14:00] VITALS: BP 119/74
[2020-01-21 20:00] VITALS: BP 146/81
[2020-01-21] MEDS: PRAVASTATIN 20 MG TAB PO SCH (20:28)
[2020-01-21] MEDS: amLODIPine 5 MG TAB PO SCH (20:28)
[2020-01-21] MEDS: GABAPENTIN 300 MG CAP PO SCH (20:28)
[2020-01-21] MEDS: LOSARTAN 50MG TABLET PO SCH (20:29)
[2020-01-21] MEDS: LATANOPROST 0.005% OPHTH SOLN 2.5 ML OU SCH (20:30)
[2020-01-22 06:00] VITALS: BP 179/86
[2020-01-22 07:19] VITALS: BP 146/78
[2020-01-22] MEDS: DOCUSATE SODIUM 100 MG CAP PO SCH ×2 (09:00→20:20)
--- NOTE | 2020-01-22 09:32 | IPNPDOC ---
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 CTA negative for PE, Chest x-ray on admission to ARU revealed atelectasis and slight left pleural effusion, no evidence of pneumonia. She initially was having episodic wheezing, responding to respiratory therapy treatments does not require oxygen. She has adjusted well to the unit is participating as best she can, still fatigues quite easily. Last week she had a slide to the floor landing on her bottom. No injuries. She was working more from a wheelchair level working on greater stability, however has challenges self propelling for distance mobility. Legs are being wrapped due to bilateral lower extremity edema. The patient and her family are interested in her ultimate transfer to [place]. There there will be greater family support better weather and arrangement is underway to c oordinate continuity of care. We requested follow-up from urology service on plan regarding stent. MEDICATIONS: Reviewed see below. Last week shifted to Oral cefdinir which is to continue for total 10D abx course to 10.30. Extensive treatment warranted due to multiple sites of infection, general debility and underlying autoimmune dysfunction. REVIEW OF SYSTEMS: The following is a completed review of systems and has been reviewed. PAIN: Manageable at about 3/10 EYES: No recent vision changes. EARS, NOSE, & THROAT: No throat pain, or dysphagia, or rhinorrhea. CARDIOVASCULAR: Denies chest pain or palpitations. PULMONARY: Admits to wheezing occasionally. GASTROINTESTINAL: Denies constipation. Regular bowel movements. GENITOURINARY: . Frequency MUSCULOSKELETAL: No new complaints. NEUROLOGICAL:. Generalized weakness, history of MS SKIN: Resolving rash PSYCHIATRIC: Unremarkable. All other review of systems found to be negative. PHYSICAL EXAMINATION: VITAL SIGNS: Please see below. GENERAL: Pleasant and cooperative. Less distress. HEENT: PERRL. Extraocular movements intact. Clear conjunctiva, no adenopathy or thyromegaly. Full cervical range of motion without tenderness or spasm. Oropharynx benign. CARDIOVASCULAR: Less Distant heart sounds S1 S2 II/ SM LUNGS: Coarse breath sounds diminished at bases, No further expiratory wheezes. No rhonchi. ABDOMEN: Soft, nontender, obese. Positive bowel sounds. Normal active bowel sounds NEUROLOGICAL: Cranial nerves II through XII intact. Sensation grossly intact. EXTREMITIES: 5 /5 verification clerk, elbow flexion, elbow extension, knee extension, foot dorsiflexion, plantar flexion. No tenderness hip girdle. bilateral lower extremity edema, required leg wrapping. Postive tender nodule right calf, equivocal Homans. SKIN: Macular raised, erythematous area right supraclavicular thoracic outlet region, probable rash tape reaction, improving. FUNCTIONAL STATUS: Discussed during team conference. Pt. continues to be limited in ambulation distance and stair negotiation due to strength and endurance deficits. While moment to moment. Strength testing appears adequate, she fatigues rapidly and remains at a falls risk. Achieves 100ft ambulation progressed from CGA to SBA and and requires MIN A to complete 3 -6" stairs due to difficulty clearing right LE onto step; working on leading with right LE when ascending the stairs. Continues to build strength and endurance. Significant falls risk as evidenced by last week's episode, due to decreased proprioception, balance and endurance issues. LABORATORY DATA: Reviewed. Please see below. WBC stable 7.5 and H/H stable MICROBIOLOGY: Please see below. ASSESSMENT AND PLAN: MS w fluctuating R abhi, fatigue Neurogenic bladder. UTI s/p stent for removal infected obstructing stone, relieving hydronephrosis may need further imaging, possible procedures pending input. E.Coli Sepsis Rhabdomyolysis,CK now normal low 19, however still with easy fatigueability, combination of this and MS effects Cholelithiasis. Hydronephrosis Hypertension. HLD. Osteoporosis. Anemia. 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 Initial workup notable for profound leukocytosis with escalation of WBC from 16 to 24. She was found to be positive for UTI with subsequent altered mental status, respiratory decompensation and hypotension. Subsequent workup reportedly revealed rhabdomyololysis , now resolved with normal CK, however persisting myalgias and severe fatigue and limited endurance. She also had pyelonephritis, hydronephrosis with obstructing renal stones, leading to severe E. Coli sepsis confirmed with Blood Cultures x 2 01.08.2020, requiring subsequent cystoscopy, left stent placement on 01/08/[address] Tapan Hansen urology. Escherichia coli was positive on blood cultures x2 and urine culture and she was changed from initial Zosyn to Ceftriaxone 01/04, was noted to be wheezing with dyspnea at time of arrival to the unit she shifted to PO Cefdinir. Patient also had elevation of troponin level secondary to demand ischemia. Type II [place] without associated angina or EKG changes. At the time of discharge troponins were noted to be trending down. No further cardiac complaints. However, further cardiac workup is recommended as an out patient. ECHO noted EF 65-70%. Further consultation was sought with Dr. Parisi, surgery for gallstones and elevated liver function studies and abdominal distention. CT scan notable with calcifications in the bladder wall enlargement of common bile duct, she was not felt to be a surgical candidate. Additional workup was noted for chest x-ray consistent with bibasilar atelectasis subsequently changed to partial left right middle lobe with interspace disease related to possible pneumonia. Follow chest x-ray on admission to the rehabilitation unit notes small pleural effusions. CT head n oted for no intracranial abnormality. She is stable and participating well in her various therapy programs. 1. Rehab- PT/OT advance gait and ADLs, strengthen/stretch/maintain ROM all 4limbs, energy conservation, eventual family training 2. Status post VA, Cardiac rehab, lower intensity building endurance focus, daily weights, medicine consulted to assist in overall management combo of MS and Cardovascular issues contribute to easy fatigueability, need for careful balanced strengthening to not further aggravate MS or Cardiac symptoms. BP a bit labile, elevated this morning, will monitor and adjust meds as needed --HLD c/u statin -Today, she had complained of right calf pain with bilateral swelling, Doppler ultrasound obtained, negative for evidence of DVT, on anticoagulation, symptoms could be related to MS symptoms as well. 3. Resp- breathing treatments as needed, encourage incentive spirometry breathing treatments as indicated. 4. GI Gallstones, surgery not currently felt indicated, continue monitoring, lo w-fat diet suggested optimize diet with protein supplementation, usually takes Fibercon BID as part of bowel program, will continue 5. DVT ppx- on Lovenox 6. -stones, stent monitor output, continue antibiotics to coordinate post discharge follow-up urologist 7. Pain- Tylenol and usual meds prn 8. Dispo-home with and supportive friends . Needs to conquer 6 steps to access home. Ultimately to daughter and family in [place] Allergies Coded Allergies: No Known Allergies (Verified , 11/13/02) Vital Signs Vital Signs Date Time Temp Pulse Resp B/P (MAP) Pulse Ox O2 Delivery O2 Flow Rate FiO2 01/22/20 07:19 146/78 (100) 01/22/20 06:00 98.1 83 18 95 Room Air Current Medications Current Medications Current Medications Medications (Trade) Dose Ordered Sig/Lorene Route PRN Reason Start Time Stop Time Status Last Admin Dose Admin Acetaminophen (Tylenol Tab) 650 mg Q4HP PRN PO MILD PAIN (PS 1-4) 01/15/20 16:15 01/20/20 16:16 Albuterol Sulfate (Proventil, Ventolin Hfa) 2 puff Q6HP PRN INH SHORTNESS OF BREATH 01/15/20 18:30 Amlodipine Besylate (Norvasc) 5 mg DAILY@2100 PO 01/15/20 21:00 01/21/20 20:28 Aspirin (Ecotrin) 81 mg DAILY PO 01/16/20 09:00 01/21/20 09:29 Calcium Polycarbophil (Fiber Con) 1 ea BID PO 01/15/20 21:00 01/21/20 20:28 Cefdinir (Omnicef) 300 mg BID PO 01/15/20 21:00 01/15/20 19:01 DC Cefdinir (Omnicef) 300 mg BID PO 01/17/20 21:00 01/21/20 11:00 DC 01/21/20 09:29 Ceftriaxone Sodium 2 gm/ Dextrose 50 ml @ 50 mls/hr Q24H IV 01/16/20 12:00 01/20/20 11:11 DC 01/19/20 12:01 Docusate Sodium (Colace) 100 mg BID PO 01/15/20 21:00 01/18/20 21:44 Dorzolamide/ Timolol (Cosopt Ocumeter Plus) 1 drop BID OU 01/15/20 21:00 01/21/20 20:29 Enoxaparin Sodium (Lovenox) 40 mg DAILY SC 01/16/20 09:00 01/21/20 09:30 Gabapentin (Neurontin) 300 mg QHS PO 01/15/20 21:00 01/21/20 20:28 Home Med (Med Rec Complete!) ASDIRECTED XX 01/15/20 17:45 01/15/20 18:15 DC Hydrocortisone (Hydrocortisone 1% Cream) 1 dose DAILY TOP 01/18/20 09:00 01/21/20 09:37 Latanoprost (Xalatan 0.005% Op Soln) 1 drop QHS OU 01/15/20 21:00 01/21/20 20:30 Losartan Potassium (Cozaar) 100 mg QHS PO 01/15/20 21:00 01/21/20 20:29 Omeprazole (PriLOSEC) 20 mg BID PO 01/16/20 09:00 01/21/20 20:28 Oxybutynin Chloride (Ditropan) 5 mg BID PO 01/15/20 21:00 01/21/20 20:28 Potassium Chloride (Micro-K Extencaps) 10 meq DAILY PO 01/16/20 09:00 01/21/20 09:29 Pravastatin Sodium (Pravachol) 20 mg QHS PO 01/15/20 21:00 01/21/20 20:28 DEWEY UNDERWOOD MD Jan 22, 2020 09:32
[2020-01-22] MEDS: FIBER-CON 625 MG TAB PO SCH ×2 (10:10→20:26)
[2020-01-22] MEDS: ENOXAPARIN 40MG/0.4ML SYRINGE (J1650 PER 10MG) SC SCH (10:10)
[2020-01-22] MEDS: HYDROCORTISONE 1% CREAM 30 GM TOP SCH (10:11)
[2020-01-22] MEDS: oxyBUTYnin 5 MG TAB PO SCH ×2 (10:11→20:26)
[2020-01-22] MEDS: ASPIRIN 81 MG ENTERIC TAB PO SCH (10:11)
[2020-01-22] MEDS: POTASSIUM CHLORIDE 10 MEQ SR TABLET PO SCH (10:11)
[2020-01-22] MEDS: OMEPRAZOLE 20 MG CAP PO SCH ×2 (10:11→20:26)
[2020-01-22] MEDS: COSOPT OCUMETER PLUS 10ML (DORZOLAMIDE/TIMOLOL) OU SCH ×2 (10:12→20:28)
--- NOTE | 2020-01-22 11:53 | REP ---
INDICATION: pain, swelling right lower extremity more than left. COMPARISON: None. TECHNIQUE: Bilateral lower extremity duplex venous scanning is performed. FINDINGS: The deep veins are anechoic and fully compressible from the groin to the popliteal fossa in the left and right lower extremity. Color flow imaging is homogeneous. Spectral Doppler interrogation demonstrates intact respiratory variation in flow and normal manual augmentation of flow. There is no evidence of deep vein thrombosis. IMPRESSION: Negative bilateral lower extremity duplex venous ultrasound. No evidence of deep vein thrombosis. <Electronically signed by Russel Das > 01/22/20 [id number]
[2020-01-22] MEDS: CEFDINIR 300 MG CAP (OMNICEF) PO SCH ×2 (12:32→20:26)
[2020-01-22 14:00] VITALS: BP 142/89
[2020-01-22] MEDS: PRAVASTATIN 20 MG TAB PO SCH (20:26)
[2020-01-22] MEDS: GABAPENTIN 300 MG CAP PO SCH (20:26)
[2020-01-22] MEDS: ACETAMINOPHEN TAB 650MG DOSE (2X325MG) PO PRN (20:27)
[2020-01-22] MEDS: LATANOPROST 0.005% OPHTH SOLN 2.5 ML OU SCH (20:28)
[2020-01-22] MEDS: LOSARTAN 50MG TABLET PO SCH (20:31)
[2020-01-22] MEDS: amLODIPine 5 MG TAB PO SCH (20:31)
[2020-01-22 21:00] VITALS: BP 113/66
[2020-01-23 04:43] VITALS: BP 141/87
[2020-01-23] MEDS: oxyBUTYnin 5 MG TAB PO SCH ×2 (08:35→21:25)
[2020-01-23] MEDS: ASPIRIN 81 MG ENTERIC TAB PO SCH (08:35)
[2020-01-23] MEDS: FIBER-CON 625 MG TAB PO SCH ×2 (08:35→21:25)
[2020-01-23] MEDS: CEFDINIR 300 MG CAP (OMNICEF) PO SCH ×2 (08:35→21:25)
[2020-01-23] MEDS: OMEPRAZOLE 20 MG CAP PO SCH ×2 (08:35→21:25)
[2020-01-23] MEDS: COSOPT OCUMETER PLUS 10ML (DORZOLAMIDE/TIMOLOL) OU SCH ×2 (08:36→21:27)
[2020-01-23] MEDS: POTASSIUM CHLORIDE 10 MEQ SR TABLET PO SCH (08:36)
[2020-01-23] MEDS: HYDROCORTISONE 1% CREAM 30 GM TOP SCH (08:36)
[2020-01-23] MEDS: ENOXAPARIN 40MG/0.4ML SYRINGE (J1650 PER 10MG) SC SCH (08:36)
[2020-01-23] MEDS: DOCUSATE SODIUM 100 MG CAP PO SCH ×2 (08:36→21:00)
--- NOTE | 2020-01-23 11:29 | IPNPDOC ---
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 CTA negative for PE, Chest x-ray on admission to ARU revealed atelectasis and slight left pleural effusion, no evidence of pneumonia. She initially was having episodic wheezing, responding to respiratory therapy treatments does not require oxygen. She has adjusted well to the unit is participating as best she can, still fatigues quite easily. Last week she had a slide to the floor landing on her bottom. No injuries. She was working more from a wheelchair level working on greater stability, however has challenges self propelling for distance mobility. Legs are being wrapped due to bilateral lower extremity edema. New onset right calf pain and swelling mental ultrasound negative for bilateral DVT. The patient and her family are interested in her ultimate transfer to [place]. T here there will be greater family support better weather and arrangement is underway to coordinate continuity of care. We requested follow-up from urology service on plan regarding stent. She has no new complaints today. Slept well, has a good appetite and is pleased with her progress in therapy. MEDICATIONS: Reviewed see below. Last week shifted to Oral cefdinir which is to continue for total 10D abx course to 10.30. Extensive treatment warranted due to multiple sites of infection, general debility and underlying autoimmune dysfunction. REVIEW OF SYSTEMS: The following is a completed review of systems and has been reviewed. PAIN: Manageable at about 3/10 EYES: No recent vision changes. EARS, NOSE, & THROAT: No throat pain, or dysphagia, or rhinorrhea. CARDIOVASCULAR: Denies chest pain or palpitations. PULMONARY: Admits to wheezing occasionally. GASTROINTESTINAL: Denies constipation. Regular bowel movements. GENITOURINARY: . Frequency MUSCULOSKELETAL: No new complaints. NEUROLOGICAL:. Generalized weakness, history of MS SKIN: Resolving rash PSYCHIATRIC: Unremarkable. All other review of systems found to be negative. PHYSICAL EXAMINATION: VITAL SIGNS: Please see below. GENERAL: Pleasant and cooperative. Less distress. HEENT: PERRL. Extraocular movements intact. Clear conjunctiva, no adenopathy or thyromegaly. Full cervical range of motion without tenderness or spasm. Oropharynx benign. CARDIOVASCULAR: Less Distant heart sounds S1 S2 II/ SM LUNGS: Coarse breath sounds diminished at bases, No further expiratory wheezes. No rhonchi. ABDOMEN: Soft, nontender, obese. Positive bowel sounds. Normal active bowel sounds NEUROLOGICAL: Cranial nerves II through XII intact. Sensation grossly intact. EXTREMITIES: 5 /5 holder pile driving, elbow flexion, elbow extension, knee extension, foot dorsiflexion, plantar flexion. No tenderness hip girdle. bilateral lower extremity edema, required leg wrapping. Postive tender nodule right calf, equivocal Homans. SKIN: Fading rash right supraclavicular thoracic outlet region, probable rash tape reaction, nearly resolved FUNCTIONAL STATUS: Discussed during team conference yesterday. Pt. continues to be limited in ambulation distance and stair negotiation due to strength and endurance deficits. While moment to moment strength testing appears adequate, she fatigues rapidly and remains at a falls risk. Achieves 100ft ambulation progressed from CGA to SBA and and requires MIN A to complete 3 -6" stairs due to difficulty clearing right LE onto step; working on leading with right LE when ascending the stairs. Continues to build strength and endurance. Significant falls risk as evidenced by last week's episode, due to decreased proprioception, balance and endurance issues. LABORATORY DATA: Reviewed. Please see below. MICROBIOLOGY: Please see below. ASSESSMENT AND PLAN: MS w fluctuating R abhi, fatigue Neurogenic bladder. UTI s/p stent for removal infected obstructing stone, relieving hydronephrosis may need further imaging, possible procedures pending input. E.Coli Sepsis Rhabdomyolysis,CK now normal low 19, however still with easy fatigueability, combination of this and MS effects Cholelithiasis. Hydronephrosis Hypertension. HLD. Osteoporosis. Anemia. Hypoalbuminemia History right breast cancer status post mastectomy, chemotherapy, radiation Possible Pneumonia vs atelectasis/effusion This is an 84-year-old hypertensive lady with history of MS, right hemiparesis, osteoporosis, neurogenic bladder, sustained a ground-level floor grinder with her underlying MS, and hemiparesis. Initial workup notable for profound leukocytosis with escalation of WBC from 16 to 24. She was found to be positive for UTI with subsequent altered mental status, respiratory decompensation and hypotension. Subsequent workup reportedly revealed rhabdomyololysis , now resolved with normal CK, however persisting myalgias and severe fatigue and limited endurance. She also had pyelonephritis, hydronephrosis with obstructing renal stones, leading to severe E. Coli sepsis confirmed with Blood Cultures x 2 01.08.2020, requiring subsequent cystoscopy, left stent placement on 01/08/[address] Tapan Hansen urology. Escherichia coli was positive on blood cultures x2 and urine culture and she was changed from initial Zosyn to Ceftriaxone 01/04, was noted to be wheezing with dyspnea at time of arrival to the unit she shifted to PO Cefdinir. Patient also had elevation of troponin level secondary to demand ischemia. Type II [place] without associated angina or EKG changes. At the time of discharge troponins were noted to be trending down. No further cardiac complaints. However, further cardiac workup is recommended as an out patient. ECHO noted EF 65-70%. Further consultation was sought with Dr. Parisi, surgery for gallstones and elevated liver function studies and abdominal distention. CT scan notable with calcifications in the bladder wall enlargement of common bile duct, she was not felt to be a surgical candidate. Additional workup was noted for chest x-ray consistent with bibasilar atelectasis subsequently changed to partial left right middle lobe with interspace disease related to possible pneumonia. Follow chest x-ray on admission to the rehabilitation unit notes small pleural effusions. CT head noted for no intracranial abnormality. She is stable and participating well in her various therapy programs. 1. Rehab- PT/OT advance gait and ADLs, strengthen/stretch/maintain ROM all 4limbs, energy conservation, eventual family training 2. Status post [place], Cardiac rehab, lower intensity building endurance focus, daily weights, medicine consulted to assist in overall management combo of MS and Cardovascular issues contribute to easy fatigueability, need for careful balanced strengthening to not further aggravate MS or Cardiac symptoms. BP a bit labile, elevated this morning, will monitor and adjust meds as needed --HLD c/u statin -Yesterday she had complained of right calf pain with bilateral swelling, Doppler ultrasound obtained, negative for evidence of DVT, on anticoagulation, symptoms could be related to MS symptoms as well. 3. Resp- breathing treatments as needed, encourage incentive spirometry breathing treatments as indicated. 4. GI Gallstones, surgery not currently felt indicated, continue monitoring, low-fat diet suggested optimize diet with protein supplementation, usually takes Fibercon BID as part of bowel program, will continue 5. DVT ppx- on Lovenox 6. -stones, stent monitor output, continue antibiotics to coordinate post discharge follow-up urologist 7. Pain- Tylenol and usual meds prn 8. Dispo-home with and supportive friends . Needs to conquer 6 steps to access home. Ultimately to daughter and family in [place] TIME SPENT: Chart Review, examination and documentation minutes. Allergies Coded Allergies: No Known Allergies (Verified , 11/13/02) Vital Signs Vital Signs Date Time Temp Pulse Resp B/P (MAP) Pulse Ox O2 Delivery O2 Flow Rate FiO2 01/23/20 04:43 97.3 83 18 141/87 (105) 97 Room Air Current Medications Current Medications Current Medications Medications (Trade) Dose Ordered Sig/Lorene Route PRN Reason Start Time Stop Time Status Last Admin Dose Admin Acetaminophen (Tylenol Tab) 650 mg Q4HP PRN PO MILD PAIN (PS 1-4) 01/15/20 16:15 01/22/20 20:27 Albuterol Sulfate (Proventil, Ventolin Hfa) 2 puff Q6HP PRN INH SHORTNESS OF BREATH 01/15/20 18:30 Amlodipine Besylate (Norvasc) 5 mg DAILY@2100 PO 01/15/20 21:00 01/22/20 20:31 Aspirin (Ecotrin) 81 mg DAILY PO 01/16/20 09:00 01/23/20 08:35 Calcium Polycarbophil (Fiber Con) 1 ea BID PO 01/15/20 21:00 01/23/20 08:35 Cefdinir (Omnicef) 300 mg BID PO 01/15/20 21:00 01/15/20 19:01 DC Cefdinir (Omnicef) 300 mg BID PO 01/17/20 21:00 01/21/20 11:00 DC 01/21/20 09:29 Cefdinir (Omnicef) 300 mg BID PO 01/22/20 09:00 01/25/20 21:01 10/28/20 08:35 Ceftriaxone Sodium 2 gm/ Dextrose 50 ml @ 50 mls/hr Q24H IV 01/16/20 12:00 01/20/20 11:11 DC 01/19/20 12:01 Docusate Sodium (Colace) 100 mg BID PO 01/15/20 21:00 01/18/20 21:44 Dorzolamide/ Timolol (Cosopt Ocumeter Plus) 1 drop BID OU 01/15/20 21:00 01/23/20 08:36 Enoxaparin Sodium (Lovenox) 40 mg DAILY SC 01/16/20 09:00 01/23/20 08:36 Gabapentin (Neurontin) 300 mg QHS PO 01/15/20 21:00 01/22/20 20:26 Home Med (Med Rec Complete!) ASDIRECTED XX 01/15/20 17:45 01/15/20 18:15 DC Hydrocortisone (Hydrocortisone 1% Cream) 1 dose DAILY TOP 01/18/20 09:00 01/22/20 10:11 Latanoprost (Xalatan 0.005% Op Soln) 1 drop QHS OU 01/15/20 21:00 01/22/20 20:28 Losartan Potassium (Cozaar) 100 mg QHS PO 01/15/20 21:00 01/22/20 20:31 Omeprazole (PriLOSEC) 20 mg BID PO 01/16/20 09:00 01/23/20 08:35 Oxybutynin Chloride (Ditropan) 5 mg BID PO 01/15/20 21:00 01/23/20 08:35 Potassium Chloride (Micro-K Extencaps) 10 meq DAILY PO 01/16/20 09:00 01/23/20 08:36 Pravastatin Sodium (Pravachol) 20 mg QHS PO 01/15/20 21:00 01/22/20 20:26 DEWEY UNDERWOOD MD Jan 23, 2020 11:29
[2020-01-23 14:00] VITALS: BP 128/81
[2020-01-23 20:04] VITALS: BP 152/68
[2020-01-23] MEDS: GABAPENTIN 300 MG CAP PO SCH (21:25)
[2020-01-23] MEDS: PRAVASTATIN 20 MG TAB PO SCH (21:25)
[2020-01-23] MEDS: amLODIPine 5 MG TAB PO SCH (21:26)
[2020-01-23] MEDS: LOSARTAN 50MG TABLET PO SCH (21:26)
[2020-01-23] MEDS: LATANOPROST 0.005% OPHTH SOLN 2.5 ML OU SCH (21:27)
[2020-01-24 05:34] VITALS: BP 128/62
[2020-01-24 06:13] LABS: HEMATOCRIT 32.8 % (36.0-47.0); HEMOGLOBIN 10.3 g/dl (12.0-15.5); MEAN CORPUSCULAR HEMOGLOBIN 32.5 pg (27.0-33.0); MEAN CORPUSCULAR HGB CONC 31.4 g/dl (32.0-36.5); MEAN CORPUSCULAR VOLUME 103.5 fl (80.0-96.0); PLATELET COUNT, AUTOMATED 380 10^3/uL (150-450); RED BLOOD COUNT 3.17 10^6/uL (4.00-5.40); WHITE BLOOD COUNT 6.7 10^3/uL (4.0-10.0)
[2020-01-24] MEDS: ASPIRIN 81 MG ENTERIC TAB PO SCH (08:49)
[2020-01-24] MEDS: CEFDINIR 300 MG CAP (OMNICEF) PO SCH ×2 (08:49→20:09)
[2020-01-24] MEDS: POTASSIUM CHLORIDE 10 MEQ SR TABLET PO SCH (08:49)
[2020-01-24] MEDS: oxyBUTYnin 5 MG TAB PO SCH ×2 (08:49→20:10)
[2020-01-24] MEDS: ENOXAPARIN 40MG/0.4ML SYRINGE (J1650 PER 10MG) SC SCH (08:50)
[2020-01-24] MEDS: DOCUSATE SODIUM 100 MG CAP PO SCH ×2 (08:50→20:10)
[2020-01-24] MEDS: OMEPRAZOLE 20 MG CAP PO SCH ×2 (08:50→20:09)
[2020-01-24] MEDS: FIBER-CON 625 MG TAB PO SCH ×2 (08:50→20:09)
[2020-01-24] MEDS: COSOPT OCUMETER PLUS 10ML (DORZOLAMIDE/TIMOLOL) OU SCH ×2 (08:51→20:14)
[2020-01-24] MEDS: HYDROCORTISONE 1% CREAM 30 GM TOP SCH (08:51)
--- NOTE | 2020-01-24 09:09 | IPNPDOC ---
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 CTA negative for PE, Chest x-ray on admission to ARU revealed atelectasis and slight left pleural effusion, no evidence of pneumonia. She initially was having episodic wheezing, responding to respiratory therapy treatments does not require oxygen. She has adjusted well to the unit is participating as best she can, still fatigues quite easily. Legs are being wrapped due to bilateral lower extremity edema. New onset right calf pain and swelling mental ultrasound negative for bilateral DVT earlier this week. The patient and her family are interested in her ultimate transfer to [place]. There there will be greater family support better weather and arrangement is underway to coordinate continuity of care. I spoke with urology service on plan regarding stent, they said as long as output continues well, no deluna, can be done as an outpatient post discharge, or after transfer to [place] to a urologist there. A window of up to 3 months if no interim complications-hematuria, fever, decreased urinary output-noted to get stent removal organized. She has no new complaints today. Slept well, has a good appetite and is pleased with her progress in therapy. MEDICATIONS: Reviewed see below. Last week shifted to Oral cefdinir which was to continue for total 10D abx course to 10.30. Extensive treatment warranted due to multiple sites of infection, general debility and underlying autoimmune dysfunction. Will need follow up post discharge for any changes off antibiotics. REVIEW OF SYSTEMS: The following is a completed review of systems and has been reviewed. PAIN: Manageable at about 3/10 EYES: No recent vision changes. EARS, NOSE, & THROAT: No throat pain, or dysphagia, or rhinorrhea. CARDIOVASCULAR: Denies chest pain or palpitations. PULMONARY: Admits to wheezing occasionally. GASTROINTESTINAL: Denies constipation. Regular bowel movements. GENITOURINARY: . Frequency MUSCULOSKELETAL: No new complaints. NEUROLOGICAL:. Generalized weakness, history of MS SKIN: Resolving rash PSYCHIATRIC: Unremarkable. All other review of systems found to be negative. PHYSICAL EXAMINATION: VITAL SIGNS: Please see below. GENERAL: Pleasant and cooperative. Less distress. HEENT: PERRL. Extraocular movements intact. Clear conjunctiva, no adenopathy or thyromegaly. Full cervical range of motion without tenderness or spasm. Oropharynx benign. CARDIOVASCULAR: Less Distant heart sounds S1 S2 II/ SM LUNGS: Coarse breath sounds diminished at bases, No further expiratory wheezes. No rhonchi. ABDOMEN: Soft, nontender, obese. Positive bowel sounds. Normal active bowel sounds NEUROLOGICAL: Cranial nerves II through XII intact. Sensation grossly intact. EXTREMITIES: 5 /5 rope tier, elbow flexion, elbow extension, knee extension, 4/5 right,5/5 left foot dorsiflexion, plantar flexion. No tenderness hip girdle. bilateral lower extremity edema, required leg wrapping. No further tenderness right calf. SKIN: cleared FUNCTIONAL STATUS: Pt. continues to be limited in ambulation distance and stair negotiation due to strength and endurance deficits. While moment to moment strength testing appears adequate, she fatigues rapidly and remains at a falls risk. Achieves 100ft ambulation progressed from CGA to SBA and and requires MIN A to complete 3 -6" stairs due to difficulty clearing right LE onto step; working on leading with right LE when ascending the stairs, tends to turnout and push off medial aspect right foot. Continues to build strength and endurance. Significant falls risk as evidenced by last week's episode, due to decreased proprioception, balance and endurance issues. LABORATORY DATA: Reviewed. Please see below. MICROBIOLOGY: Please see below. ASSESSMENT AND PLAN: MS w fluctuating R abhi, fatigue Neurogenic bladder. UTI s/p stent for removal infected obstructing stone, relieving hydronephrosis may need further imaging, possible procedures pending input. E.Coli Sepsis Rhabdomyolysis,CK now normal low 19, however still with easy fatigueability, combination of this and MS effects Cholelithiasis. Hydronephrosis Hypertension. HLD. Osteoporosis. Anemia. Hypoalbuminemia History right breast cancer status post mastectomy, chemotherapy, radiation Possible Pneumonia vs atelectasis/effusion This is an 84-year-old hypertensive lady with history of MS, right hemiparesis, osteoporosis, neurogenic bladder, sustained a ground-level floor surfacer with her underlying MS, and hemiparesis. Initial workup notable for profound leukocytosis with escalation of WBC from 16 to 24. She was found to be positive for UTI with subsequent altered mental status, respiratory decompensation and hypotension. Subsequent workup reportedly revealed rhabdomyololysis , now resolved with normal CK, however persisting myalgias and severe fatigue and limited endurance. She also had pyelonephritis, hydronephrosis with obstructing renal stones, leading to severe E. Coli sepsis confirmed with Blood Cultures x 2 01.08.2020, requiring subsequent cystoscopy, left stent placement on 01/08/[address] Tapan Hansen urology. Escherichia coli was positive on blood cultures x2 and urine culture and she was changed from initial Zosyn to Ceftriaxone 01/04, was noted to be wheezing with dyspnea at time of arrival to the unit she shifted to PO Cefdinir. Patient also had elevation of troponin level secondary to demand ischemia. Type II [place] without associated angina or EKG changes. At the time of discharge troponins were noted to be trending down. No further cardiac complaints. Howev er, further cardiac workup is recommended as an out patient. ECHO noted EF 65- 70%. Further consultation was sought with Dr. Parisi, surgery for gallstones and elevated liver function studies and abdominal distention. CT scan notable with calcifications in the bladder wall enlargement of common bile duct, she was not felt to be a surgical candidate. Additional workup was noted for chest x-ray consistent with bibasilar atelectasis subsequently changed to partial left right middle lobe with inte rspace disease related to possible pneumonia. Follow chest x-ray on admission to the rehabilitation unit notes small pleural effusions. CT head noted for no intracranial abnormality. She is stable and participating well in her various therapy programs. 1. Rehab- PT/OT advance gait and ADLs, strengthen/stretch/maintain ROM all 4limbs, energy conservation, eventual family training 2. Status post [place], Cardiac rehab, lower intensity building endurance focus, daily weights, medicine consulted to assist in overall management combo of MS and Cardovascular issues contribute to easy fatigueability, need for careful balanced strengthening to not further aggravate MS or Cardiac symptoms. BP a bit labile, elevated this morning, will monitor and adjust meds as needed --HLD c/u statin - Doppler ultrasound obtained earlier this week, negative for evidence of DVT, on anticoagulation, symptoms could be related to MS symptoms as well. 3. Resp- breathing treatments as needed, encourage incentive spirometry breathing treatments as indicated. 4. GI Gallstones, surgery not currently felt indicated, continue monitoring, low-fat diet suggested optimize diet with protein supplementation, usually takes Fibercon BID as part of bowel program, will continue 5. DVT ppx- on Lovenox 6. -stones, stent monitor output, continue antibiotics to coordinate post discharge follow-up urologist and address within next 3 months 7. Pain- Tylenol and usual meds prn 8. Dispo-home with and supportive friends . Needs to conquer 6 steps to access home. Ultimately to daughter and family in [place] TIME SPENT: Chart Review, examination and documentation minutes. Allergies Allergies Coded Allergies: No Known Allergies (Verified , 11/13/02) Vital Signs Vital Signs Date Time Temp Pulse Resp B/P (MAP) Pulse Ox O2 Delivery O2 Flow Rate FiO2 01/24/20 05:34 97.4 80 17 128/62 (84) 94 Room Air Laboratory Data CBC/BMP Laboratory Tests 01/24/20 05:56 Labs 24H Laboratory Tests 2 01/24/20 05:56: Nucleated Red Blood Cells % (auto) 0.0 Current Medications Current Medications Current Medications Medications (Trade) Dose Ordered Sig/Lorene Route PRN Reason Start Time Stop Time Status Last Admin Dose Admin Acetaminophen (Tylenol Tab) 650 mg Q4HP PRN PO MILD PAIN (PS 1-4) 01/15/20 16:15 01/22/20 20:27 Albuterol Sulfate (Proventil, Ventolin Hfa) 2 puff Q6HP PRN INH SHORTNESS OF BREATH 01/15/20 18:30 Amlodipine Besylate (Norvasc) 5 mg DAILY@2100 PO 01/15/20 21:00 01/23/20 21:26 Aspirin (Ecotrin) 81 mg DAILY PO 01/16/20 09:00 01/24/20 08:49 Calcium Polycarbophil (Fiber Con) 1 ea BID PO 01/15/20 21:00 01/24/20 08:50 Cefdinir (Omnicef) 300 mg BID PO 01/15/20 21:00 01/15/20 19:01 DC Cefdinir (Omnicef) 300 mg BID PO 01/17/20 21:00 01/21/20 11:00 DC 01/21/20 09:29 Cefdinir (Omnicef) 300 mg BID PO 01/22/20 09:00 01/25/20 21:01 01/24/20 08:49 Ceftriaxone Sodium 2 gm/ Dextrose 50 ml @ 50 mls/hr Q24H IV 01/16/20 12:00 01/20/20 11:11 DC 01/19/20 12:01 Docusate Sodium (Colace) 100 mg BID PO 01/15/20 21:00 01/18/20 21:44 Dorzolamide/ Timolol (Cosopt Ocumeter Plus) 1 drop BID OU 01/15/20 21:00 01/24/20 08:51 Enoxaparin Sodium (Lovenox) 40 mg DAILY SC 01/16/20 09:00 01/24/20 08:50 Gabapentin (Neurontin) 300 mg QHS PO 01/15/20 21:00 01/23/20 21:25 Home Med (Med Rec Complete!) ASDIRECTED XX 01/15/20 17:45 01/15/20 18:15 DC Hydrocortisone (Hydrocortisone 1% Cream) 1 dose DAILY TOP 01/18/20 09:00 01/24/20 08:51 Latanoprost (Xalatan 0.005% Op Soln) 1 drop QHS OU 01/15/20 21:00 01/23/20 21:27 Losartan Potassium (Cozaar) 100 mg QHS PO 01/15/20 21:00 01/23/20 21:26 Omeprazole (PriLOSEC) 20 mg BID PO 01/16/20 09:00 01/24/20 08:50 Oxybutynin Chloride (Ditropan) 5 mg BID PO 01/15/20 21:00 01/24/20 08:49 Potassium Chloride (Micro-K Extencaps) 10 meq DAILY PO 01/16/20 09:00 01/24/20 08:49 Pravastatin Sodium (Pravachol) 20 mg QHS PO 01/15/20 21:00 01/23/20 21:25 DEWEY UNDERWOOD MD Jan 24, 2020 09:09
[2020-01-24 14:00] VITALS: BP 132/78
[2020-01-24 16:00] LABS: APPEARANCE, URINE TURBID (CLEAR); BACTERIA, URINE AUTO 1+ (NEGATIVE); BILIRUBIN, URINE AUTO NEGATIVE (NEGATIVE); BLOOD, URINE BLOOD 2+ (NEGATIVE); COLOR, URINE AMBER (YELLOW); GLUCOSE, URINE (UA) AUTO 1+ mg/dL (NEGATIVE); KETONE, URINE AUTO TRACE mg/dL (NEGATIVE); LEUKOCYTE ESTERASE, URINE AUTO 3+ (NEGATIVE); MUCUS, URINE SMALL (NEGATIVE); NITRITE, URINE AUTO NEGATIVE (NEGATIVE); PROTEIN, URINE AUTO 2+ mg/dL (NEGATIVE); RBC, URINE AUTO 155 /HPF (0-3); SPECIFIC GRAVITY URINE AUTO 1.019 (1.002-1.035); SQUAMOUS EPITHELIAL CELL UR AU 22 /HPF (0-6); UROBILINOGEN, URINE AUTO 0.2 mg/dL (0.0-2.0); WBC, URINE AUTO TNTC /HPF (0-3)
[2020-01-24] MEDS: ACETAMINOPHEN TAB 650MG DOSE (2X325MG) PO PRN (19:42)
[2020-01-24 20:00] VITALS: BP 146/71
[2020-01-24] MEDS: GABAPENTIN 300 MG CAP PO SCH (20:09)
[2020-01-24] MEDS: PRAVASTATIN 20 MG TAB PO SCH (20:09)
[2020-01-24] MEDS: LOSARTAN 50MG TABLET PO SCH (20:13)
[2020-01-24] MEDS: amLODIPine 5 MG TAB PO SCH (20:13)
[2020-01-24] MEDS: LATANOPROST 0.005% OPHTH SOLN 2.5 ML OU SCH (20:14)
[2020-01-25 06:01] VITALS: BP 150/70
[2020-01-25] MEDS: FIBER-CON 625 MG TAB PO SCH ×2 (08:08→21:07)
[2020-01-25] MEDS: ASPIRIN 81 MG ENTERIC TAB PO SCH (08:08)
[2020-01-25] MEDS: DOCUSATE SODIUM 100 MG CAP PO SCH ×2 (08:08→21:00)
[2020-01-25] MEDS: OMEPRAZOLE 20 MG CAP PO SCH ×2 (08:08→21:08)
[2020-01-25] MEDS: oxyBUTYnin 5 MG TAB PO SCH ×2 (08:08→21:07)
[2020-01-25] MEDS: ENOXAPARIN 40MG/0.4ML SYRINGE (J1650 PER 10MG) SC SCH (08:08)
[2020-01-25] MEDS: CEFDINIR 300 MG CAP (OMNICEF) PO SCH ×2 (08:08→21:08)
[2020-01-25] MEDS: POTASSIUM CHLORIDE 10 MEQ SR TABLET PO SCH (08:08)
[2020-01-25] MEDS: HYDROCORTISONE 1% CREAM 30 GM TOP SCH (08:09)
[2020-01-25] MEDS: COSOPT OCUMETER PLUS 10ML (DORZOLAMIDE/TIMOLOL) OU SCH ×2 (08:09→21:08)
[2020-01-25 14:00] VITALS: BP 132/86
[2020-01-25] MEDS: ACETAMINOPHEN TAB 650MG DOSE (2X325MG) PO PRN (18:29)
[2020-01-25 20:20] VITALS: BP 140/80
[2020-01-25] MEDS: PRAVASTATIN 20 MG TAB PO SCH (21:07)
[2020-01-25] MEDS: amLODIPine 5 MG TAB PO SCH (21:08)
[2020-01-25] MEDS: LATANOPROST 0.005% OPHTH SOLN 2.5 ML OU SCH (21:08)
[2020-01-25] MEDS: LOSARTAN 50MG TABLET PO SCH (21:08)
[2020-01-25] MEDS: GABAPENTIN 300 MG CAP PO SCH (21:08)
[2020-01-26 05:28] VITALS: BP 145/80
[2020-01-26] MEDS: DOCUSATE SODIUM 100 MG CAP PO SCH ×2 (08:46→20:59)
[2020-01-26] MEDS: ASPIRIN 81 MG ENTERIC TAB PO SCH (08:48)
[2020-01-26] MEDS: OMEPRAZOLE 20 MG CAP PO SCH ×2 (08:48→20:59)
[2020-01-26] MEDS: oxyBUTYnin 5 MG TAB PO SCH ×2 (08:48→20:59)
[2020-01-26] MEDS: FIBER-CON 625 MG TAB PO SCH ×2 (08:48→20:59)
[2020-01-26] MEDS: POTASSIUM CHLORIDE 10 MEQ SR TABLET PO SCH (08:48)
[2020-01-26] MEDS: ENOXAPARIN 40MG/0.4ML SYRINGE (J1650 PER 10MG) SC SCH (08:49)
[2020-01-26] MEDS: HYDROCORTISONE 1% CREAM 30 GM TOP SCH (08:49)
[2020-01-26] MEDS: COSOPT OCUMETER PLUS 10ML (DORZOLAMIDE/TIMOLOL) OU SCH ×2 (08:49→20:58)
[2020-01-26 14:00] VITALS: BP 139/78
[2020-01-26 20:30] VITALS: BP 141/72
[2020-01-26] MEDS: LATANOPROST 0.005% OPHTH SOLN 2.5 ML OU SCH (20:58)
[2020-01-26] MEDS: GABAPENTIN 300 MG CAP PO SCH (20:59)
[2020-01-26] MEDS: LOSARTAN 50MG TABLET PO SCH (20:59)
[2020-01-26] MEDS: amLODIPine 5 MG TAB PO SCH (20:59)
[2020-01-26] MEDS: PRAVASTATIN 20 MG TAB PO SCH (20:59)
[2020-01-27 06:26] LABS: HEMATOCRIT 34.5 % (36.0-47.0); HEMOGLOBIN 10.8 g/dl (12.0-15.5); MEAN CORPUSCULAR HEMOGLOBIN 32.1 pg (27.0-33.0); MEAN CORPUSCULAR HGB CONC 31.3 g/dl (32.0-36.5); MEAN CORPUSCULAR VOLUME 102.7 fl (80.0-96.0); PLATELET COUNT, AUTOMATED 340 10^3/uL (150-450); RED BLOOD COUNT 3.36 10^6/uL (4.00-5.40); WHITE BLOOD COUNT 5.8 10^3/uL (4.0-10.0)
[2020-01-27 06:27] VITALS: BP 140/78
[2020-01-27] MEDS: DOCUSATE SODIUM 100 MG CAP PO SCH ×2 (09:00→20:28)
[2020-01-27] MEDS: FIBER-CON 625 MG TAB PO SCH ×2 (09:01→20:27)
[2020-01-27] MEDS: OMEPRAZOLE 20 MG CAP PO SCH ×2 (09:01→20:27)
[2020-01-27] MEDS: ASPIRIN 81 MG ENTERIC TAB PO SCH (09:01)
[2020-01-27] MEDS: POTASSIUM CHLORIDE 10 MEQ SR TABLET PO SCH (09:02)
[2020-01-27] MEDS: oxyBUTYnin 5 MG TAB PO SCH ×2 (09:02→20:27)
[2020-01-27] MEDS: COSOPT OCUMETER PLUS 10ML (DORZOLAMIDE/TIMOLOL) OU SCH ×2 (09:03→20:27)
[2020-01-27] MEDS: ENOXAPARIN 40MG/0.4ML SYRINGE (J1650 PER 10MG) SC SCH (09:03)
[2020-01-27] MEDS: HYDROCORTISONE 1% CREAM 30 GM TOP SCH (09:03)
[2020-01-27 14:00] VITALS: BP 127/67
[2020-01-27 20:00] VITALS: BP 117/56
[2020-01-27] MEDS: LOSARTAN 50MG TABLET PO SCH (20:27)
[2020-01-27] MEDS: LATANOPROST 0.005% OPHTH SOLN 2.5 ML OU SCH (20:27)
[2020-01-27] MEDS: GABAPENTIN 300 MG CAP PO SCH (20:28)
[2020-01-27] MEDS: PRAVASTATIN 20 MG TAB PO SCH (20:28)
[2020-01-27] MEDS: amLODIPine 5 MG TAB PO SCH (20:28)
[2020-01-28 05:23] VITALS: BP 143/73
[2020-01-28] MEDS: DOCUSATE SODIUM 100 MG CAP PO SCH ×2 (07:19→20:37)
[2020-01-28] MEDS: HYDROCORTISONE 1% CREAM 30 GM TOP SCH (09:00)
[2020-01-28] MEDS: FIBER-CON 625 MG TAB PO SCH ×2 (09:30→20:33)
[2020-01-28] MEDS: OMEPRAZOLE 20 MG CAP PO SCH ×2 (09:30→20:33)
[2020-01-28] MEDS: oxyBUTYnin 5 MG TAB PO SCH ×2 (09:30→20:33)
[2020-01-28] MEDS: ASPIRIN 81 MG ENTERIC TAB PO SCH (09:30)
[2020-01-28] MEDS: POTASSIUM CHLORIDE 10 MEQ SR TABLET PO SCH (09:30)
[2020-01-28] MEDS: ENOXAPARIN 40MG/0.4ML SYRINGE (J1650 PER 10MG) SC SCH (09:31)
[2020-01-28] MEDS: COSOPT OCUMETER PLUS 10ML (DORZOLAMIDE/TIMOLOL) OU SCH ×2 (09:31→20:34)
[2020-01-28 14:00] VITALS: BP 123/61
[2020-01-28 20:00] VITALS: BP 149/72
[2020-01-28] MEDS: PRAVASTATIN 20 MG TAB PO SCH (20:33)
[2020-01-28] MEDS: GABAPENTIN 300 MG CAP PO SCH (20:33)
[2020-01-28 20:34] VITALS: BP 149/72
[2020-01-28] MEDS: LATANOPROST 0.005% OPHTH SOLN 2.5 ML OU SCH (20:34)
[2020-01-28] MEDS: amLODIPine 5 MG TAB PO SCH (20:34)
[2020-01-28] MEDS: LOSARTAN 50MG TABLET PO SCH (20:34)
[2020-01-29 06:00] VITALS: BP 149/86
[2020-01-29] MEDS: DOCUSATE SODIUM 100 MG CAP PO SCH (08:11)
[2020-01-29] MEDS: ENOXAPARIN 40MG/0.4ML SYRINGE (J1650 PER 10MG) SC SCH (09:00)
[2020-01-29] MEDS: HYDROCORTISONE 1% CREAM 30 GM TOP SCH (09:00)
[2020-01-29] MEDS ORDERED: DOCU100C16 PO (09:20)
--- NOTE | 2020-01-29 09:52 | DS.PDOC ---
PM&R Discharge Summary Financial Systems Analyst Discharge Note DATE OF ADMISSION: Jan 15, 2020 at 18:12 DATE OF DISCHARGE: 01.29.2020 DISCHARGE DIAGNOSES: MS w fluctuating R abhi, fatigue Neurogenic bladder. UTI s/p stent for removal infected obstructing stone, relieving hydronephrosis may need further imaging, possible procedures pending input. E.Coli Sepsis Rhabdomyolysis,CK now normal low 19, however still with easy fatigueability, combination of this and MS effects Cholelithiasis. Hydronephrosis Pneumonia Hypertension. HLD. Osteoporosis. Anemia. Hypoalbuminemia Possible Pneumonia vs atelectasis/effusion PA PAST MEDICAL HISTORY: History right breast cancer mastectomy, s/p chemotherapy, radiation MS w fluctuating R abhi, fatigue PAST SURGICAL HISTORY: Status post Mastectomy CHIEF COMPLAINTS: Generalized weakness worst on the right, urinary frequency and urgency HOSPITAL COURSE: This is an 84-year-old hypertensive lady with history of MS, right hemiparesis, osteoporosis, neurogenic bladder, sustained a ground-level fall associated with her underlying MS, and hemiparesis. She was found to have profound leukocytosis, obstructing hydronephrosis from infected stones and pyelonephritis , cholelithiasis with cholecystitis and pneumonia, rhabdomyolysis. Initial workup notable for profound leukocytosis with escalation of WBC from 16 to 24. She was found to be positive for UTI with subsequent altered mental status, respiratory decompensation and hypotension. Subsequent workup reportedly revealed rhabdomyololysis , subsequently resolved with normal CK, however persisting myalgias and severe fatigue and limited endurance. She also had pyelonephritis, hydronephrosis with obstructing renal stones, leading to severe E. Coli sepsis confirmed with Blood Cultures x 2 01.08.2020, requiring subsequent cystoscopy, left stent placement on 01/08/[address] Tapan Hansen urology. She was changed from initial Zosyn to Ceftriaxone 01/04. Patient also had elevation of troponin level secondary to demand ischemia. Type II PA without associated angina or EKG changes. ECHO noted EF 65-70%. Further consultation was sought with Dr. Parisi, surgery for gallstones and elevated liver function studies and abdominal distention. CT scan notable with calcifications in the gall bladder wall, enlargement of common bile duct, she was not felt to be a surgical candidate. Additional workup was noted for chest x-ray consistent with bibasilar atelectasis subsequently changed to partial left right middle lobe with interspace disease related to possible pneumonia. She was noted to be wheezing with dyspnea at time of arrival to the unit she shifted to PO Cefdinir Follow chest x-ray on admission to the rehabilitation unit notes small pleural effusions. CT head noted for no intracranial abnormality. CTA negative for PE, Chest x-ray on admission to ARU 01.15.2020 revealed atelectasis and slight left pleural effusion, no evidence of pneumonia. She initially was having episodic wheezing, responding to respiratory therapy treatments did not require oxygen. She completed a course of Oral cefdinir for total 10D ending 01.24. Extensive treatment warranted due to multiple sites of infection, general debility and underlying autoimmune dysfunction. Has been afebrile off antibiotics, continues with frequency and urgent incontinence, last UA WBC TNC, leuk Est +. She adjusted well to the unit and participated as best she could, still fatigues quite easily. Legs were being wrapped due to bilateral lower extremity edema. New onset right calf pain and swelling were ultrasound negative for bilateral DVT . The patient and her family are interested in her ultimate transfer to [place]. There there will be greater family support better weather and arrangement is underway to coordinate continuity of care. She remains a significant falls risk as evidenced by a slide to the floor, due to decreased proprioception, balance and endurance issues. I spoke with urology service on plan regarding stent, they said as long as output continues well, no deluna, can be done as an outpatient post discharge, or after transfer to [place] to a urologist there. A window of up to 3 months if no interim complications- hematuria, fever, decreased urinary output-noted to get stent removal organized. Patient continues to have markedly abnormal UA, symptoms include frequency, urgency, she remains afebrile, and felt sufficient rehab goals met for discharge to support of and family with close follow up with urology. REVIEW OF SYSTEMS: The following is a completed review of systems and has been reviewed. PAIN: Manageable at about 3/10 EYES: No recent vision changes. EARS, NOSE, & THROAT: No throat pain, or dysphagia, or rhinorrhea. CARDIOVASCULAR: Denies chest pain or palpitations. PULMONARY: Admits to wheezing occasionally. GASTROINTESTINAL: Denies constipation. Regular bowel movements. GENITOURINARY: . Frequency and urgency MUSCULOSKELETAL: No new complaints. NEUROLOGICAL:. Generalized weakness, history of MS SKIN: Resolving rash PSYCHIATRIC: Unremarkable. All other review of systems found to be negative. PHYSICAL EXAMINATION: VITAL SIGNS: Please see below. GENERAL: Pleasant and cooperative. Less distress. HEENT: PERRL. Extraocular movements intact. Clear conjunctiva, no adenopathy or thyromegaly. Full cervical range of motion without tenderness or spasm. Oropharynx benign. CARDIOVASCULAR: S1 S2 II/ SM LUNGS: Coarse breath sounds diminished at bases, No expiratory wheezes. No rhonchi. ABDOMEN: Soft, nontender, obese. Positive normal active bowel sounds NEUROLOGICAL: Cranial nerves II through XII grossly intact. Sensation grossly intact. EXTREMITIES: 5 /5 clinical safety specialist, elbow flexion, elbow extension, knee extension, 4/5 right,5/5 left foot dorsiflexion, plantar flexion. Bilateral lower extremity edema, required leg wrapping. No further tenderness right calf. SKIN: cleared FUNCTIONAL STATUS: Pt. continues to be limited in ambulation distance and stair negotiation due to strength and endurance deficits. While moment to moment strength testing appears adequate, she fatigues rapidly and remains at a falls risk. Achieves 100ft ambulation progressed from CGA to SBA and and requires MIN A to complete 3 -6" stairs due to difficulty clearing right LE onto step; [place] to be Mod I at time of discharge, requires SBA for self care bed bath and recommended to sleep in recliner due to difficulty transferring into and out of the bed. LABORATORY DATA: Please see below. Abnormal UA with WBC TNTC Leuk Est +, probable infected stones, suggest suppression thereapy, needs FU jayna. ALLERGIES: See below. MEDICATIONS: See Below. DISCHARGE DISPOSITION: Home with and supportive friends . Needs to conquer 6 steps to access home. Ultimately to daughter and family in [place] Follow up PMD-, Gen med, post pneumonia, rhabdomyolysis, ? Cardiology-s/p PA ? Neuro MS -chronic UTI with infected nephrolithiasis, stent in place, prior hydronephrosis GI- s/p cholecystitis with persisting cholelithiasis, Nitrofurantoin suppression in interim as discussed with Consideration should be given for falls alert pendant due to patient's note that when she is very tired and falls at home, she "just lies there". TIME SPENT: Chart Review, examination and documentation 70 minutes. Vital Signs/I&O Vital Sign - Last 24 Hours 01/28/20 01/28/20 01/28/20/2/20 14:00 20:00 20:34 20:34 Temp 96.6 97.7 Pulse 97 90 90 Resp 17 18 B/P (MAP) 123/61 (81) 149/72 (97) 149/72 Pulse Ox 95 94 O2 Delivery Room Air Room Air 01/29/20 06:00 Temp 98.6 Pulse 80 Resp 18 B/P (MAP) 149/86 (107) Pulse Ox 96 O2 Delivery Room Air I&O- Last 24 Hours up to 6 AM 01/29/20 05:59 Intake Total 860 ml Output Total 0 ml Balance 860 ml Medications Medications Current Medications Medications (Trade) Dose Ordered Sig/Lorene Route PRN Reason Start Time Stop Time Status Last Admin Dose Admin Acetaminophen (Tylenol Tab) 650 mg Q4HP PRN PO MILD PAIN (PS 1-4) 01/15/20 16:15 01/25/20 18:29 Albuterol Sulfate (Proventil, Ventolin Hfa) 2 puff Q6HP PRN INH SHORTNESS OF BREATH 01/15/20 18:30 Amlodipine Besylate (Norvasc) 5 mg DAILY@2100 PO 01/15/20 21:00 01/28/20 20:34 Aspirin (Ecotrin) 81 mg DAILY PO 01/16/20 09:00 01/28/20 09:30 Calcium Polycarbophil (Fiber Con) 1 ea BID PO 01/15/20 21:00 01/28/20 20:33 Cefdinir (Omnicef) 300 mg BID PO 01/15/20 21:00 01/15/20 19:01 DC Cefdinir (Omnicef) 300 mg BID PO 01/17/20 21:00 01/21/20 11:00 DC 01/21/20 09:29 Cefdinir (Omnicef) 300 mg BID PO 01/22/20 09:00 01/25/20 21:01 DC 01/25/20 21:08 Ceftriaxone Sodium 2 gm/ Dextrose 50 ml @ 50 mls/hr Q24H IV 01/16/20 12:00 01/20/20 11:11 DC 01/19/20 12:01 Docusate Sodium (Colace) 100 mg BID PO 01/15/20 21:00 01/18/20 21:44 Dorzolamide/ Timolol (Cosopt Ocumeter Plus) 1 drop BID OU 01/15/20 21:00 01/28/20 20:34 Enoxaparin Sodium (Lovenox) 40 mg DAILY SC 01/16/20 09:00 01/28/20 09:31 Gabapentin (Neurontin) 300 mg QHS PO 01/15/20 21:00 01/28/20 20:33 Home Med (Med Rec Complete!) ASDIRECTED XX 01/15/20 17:45 01/15/20 18:15 DC Hydrocortisone (Hydrocortisone 1% Cream) 1 dose DAILY TOP 01/18/20 09:00 01/27/20 09:03 Latanoprost (Xalatan 0.005% Op Soln) 1 drop QHS OU 01/15/20 21:00 01/28/20 20:34 Losartan Potassium (Cozaar) 100 mg QHS PO 01/15/20 21:00 01/28/20 20:34 Omeprazole (PriLOSEC) 20 mg BID PO 01/16/20 09:00 01/28/20 20:33 Oxybutynin Chloride (Ditropan) 5 mg BID PO 01/15/20 21:00 01/28/20 20:33 Potassium Chloride (Micro-K Extencaps) 10 meq DAILY PO 01/16/20 09:00 01/28/20 09:30 Pravastatin Sodium (Pravachol) 20 mg QHS PO 01/15/20 21:00 01/28/20 20:33 Scheduled Amlodipine Besylate (Amlodipine Besylate) 5 Mg Tablet, 5 MG PO QHS, (Reported) Aspirin (Aspir 81) 81 Mg Tablet.dr, 81 MG PO QHS, (Reported) Docusate Sodium (Docusate Sodium) 100 Mg Capsule, 100 MG PO BID Dorzolamide HCl/Timolol Maleat (Dorzolamide-Timolol Eye Drops) 10 Ml Drops, 1 DROP OU BID, (Reported) Gabapentin (Gabapentin) 300 Mg Capsule, 300 MG PO QHS, (Reported) Losartan Potassium (Losartan Potassium) 100 Mg Tablet, 100 MG PO QHS, (Reported) Nitrofurantoin Macrocrystal (Nitrofurantoin) 50 Mg Capsule, 1 CAP PO DAILY Oxybutynin Chloride (Oxybutynin Chloride) 5 Mg Tablet, 5 MG PO BID, (Reported) Potassium Chloride (Potassium Chloride) 10 Meq Capsule.er, 10 MEQ PO DAILY, (Reported) Pravastatin Sodium (Pravastatin Sodium) 20 Mg Tablet, 20 MG PO QHS, (Reported) Travoprost (Travatan Z) 0.004% 2.5ML Drops, 1 DROP OU QHS, (Reported) Allergies Coded Allergies: No Known Allergies (Verified , 11/13/02) DEWEY UNDERWOOD MD Jan 29, 2020 09:52
[2020-01-29] MEDS ORDERED: NITR50CA34 PO (09:55)
[2020-01-29] MEDS: ASPIRIN 81 MG ENTERIC TAB PO SCH (10:54)
[2020-01-29] MEDS: POTASSIUM CHLORIDE 10 MEQ SR TABLET PO SCH (10:54)
[2020-01-29] MEDS: FIBER-CON 625 MG TAB PO SCH (10:54)
[2020-01-29] MEDS: oxyBUTYnin 5 MG TAB PO SCH (10:54)
[2020-01-29] MEDS: OMEPRAZOLE 20 MG CAP PO SCH (10:55)
[2020-01-29] MEDS: COSOPT OCUMETER PLUS 10ML (DORZOLAMIDE/TIMOLOL) OU SCH (10:56)
== END 2020-01-29 14:45 | disposition home health service (06) | DRG 58 ==
LOC: M PM&R 18:12
PROVIDERS: ADMIT Physical Medicine & Rehabilitation; ATTEND Physical Medicine & Rehabilitation
DX: G35 Multiple sclerosis (principal); I21.A1 Myocardial infarction type 2; J98.11 Atelectasis; K80.20 Calculus of gallbladder without cholecystitis without obstruction; I10 Essential (primary) hypertension; R53.83 Other fatigue; E78.5 Hyperlipidemia, unspecified; G81.91 Hemiplegia, unspecified affecting right dominant side; E88.09 Other disorders of plasma-protein metabolism, not elsewhere classified; R26.89 Other abnormalities of gait and mobility; M79.18 Myalgia, other site; N32.81 Overactive bladder; M91.0 Juvenile osteochondrosis of pelvis; Z85.3 Personal history of malignant neoplasm of breast; Z90.11 Acquired absence of right breast and nipple; Z92.21 Personal history of antineoplastic chemotherapy; Z92.3 Personal history of irradiation; Z90.49 Acquired absence of other specified parts of digestive tract; Z79.82 Long term (current) use of aspirin; Z79.899 Other long term (current) drug therapy

== ENCOUNTER → 2020-02-06 | Outpatient (REF) | payer MEDICARE, OTHER ==
[~2020-02-06] MED LIST changes: +DOCU100C16 PO; +NITR50CA34 PO
== END ==
LOC: M SMT 17:00
PROVIDERS: ATTEND Urology
DX: N20.1 Calculus of ureter (principal)

== ENCOUNTER → 2020-02-06 | Outpatient (REF) | payer MEDICARE, OTHER | LOC: M LAB REF 16:30 | PROVIDERS: ATTEND Internal Medicine | DX: G35 Multiple sclerosis (principal) ==

== ENCOUNTER → 2020-02-13 | Outpatient (CLI) | payer MEDICARE, OTHER ==
[~2020-02-13] MED LIST changes: +ASPI81CH17 PO; +NITR1CAP27 PO
--- NOTE | 2020-02-16 13:43 | ECGEPIP ---
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 No remarkable changes. Electronically Signed on 02-16-2020 13:43:42 EST by Babatunde Gracia
== END ==
LOC: M EKG 09:59
PROVIDERS: ATTEND Urology
DX: N20.1 Calculus of ureter (principal)

== ENCOUNTER → 2020-02-24 | Outpatient (CLI) | payer MEDICARE, OTHER | LOC: M LABSMTC 10:49 | PROVIDERS: ATTEND Anesthesiology | DX: Z01.812 Encounter for preprocedural laboratory examination (principal); Z20.828 Contact with and (suspected) exposure to other viral communicable diseases ==

== ENCOUNTER → 2020-02-25 | Outpatient (REF) | payer MEDICARE, OTHER ==
[2020-02-25 14:33] LABS: APPEARANCE, URINE TURBID (CLEAR); BACTERIA, URINE AUTO NEGATIVE (NEGATIVE); BILIRUBIN, URINE AUTO NEGATIVE (NEGATIVE); BLOOD, URINE BLOOD 3+ (NEGATIVE); COLOR, URINE YELLOW (YELLOW); GLUCOSE, URINE (UA) AUTO NEGATIVE (NEGATIVE); KETONE, URINE AUTO NEGATIVE (NEGATIVE); LEUKOCYTE ESTERASE, URINE AUTO 3+ (NEGATIVE); MUCUS, URINE SMALL (NEGATIVE); NITRITE, URINE AUTO NEGATIVE (NEGATIVE); PROTEIN, URINE AUTO 2+ mg/dL (NEGATIVE); RBC, URINE AUTO TNTC /HPF (0-3); SPECIFIC GRAVITY URINE AUTO 1.009 (1.002-1.035); SQUAMOUS EPITHELIAL CELL UR AU 0 /HPF (0-6); UROBILINOGEN, URINE AUTO 0.2 mg/dL (0.0-2.0); WBC, URINE AUTO TNTC /HPF (0-3)
== END ==
LOC: M SMT 13:29
PROVIDERS: ATTEND Urology
DX: N20.1 Calculus of ureter (principal)

== ENCOUNTER → 2020-02-26 | Outpatient (CLI) | payer MEDICARE, OTHER ==
[~2020-02-26] MED LIST changes: +ELIQ5TAB PO
--- NOTE | 2020-02-26 12:54 | REP ---
INDICATION: RT LEG EDEMA,R/O DVT. COMPARISON: Comparison study January 22, 2020.. TECHNIQUE: Right lower extremity duplex venous scanning. FINDINGS: Visualization of the deep venous system in the distal femoral vein is somewhat difficult technically. On some images there appears to be echogenic material in the distal femoral vein suggestive of partial deep vein thrombosis here. This is not seen previously. We were not able to visualize the proximal calf veins. Otherwise, the deep vein system in the right lower extremity is anechoic and fully compressible on two-dimensional scanning. Color flow and spectral Doppler interrogation is unremarkable. IMPRESSION: Equivocal findings in the distal femoral vein, suspect nonocclusive limited deep vein thrombosis here. Visualization is challenging. Otherwise negative. <Electronically signed by Russel Das > 02/26/20 [id number]
== END ==
LOC: M WHC 11:30
PROVIDERS: ATTEND Internal Medicine
DX: R22.41 Localized swelling, mass and lump, right lower limb (principal)

== ENCOUNTER 2020-02-29 06:14 | Day surgery (SDC) | payer MEDICARE, OTHER ==
[~2020-02-29] VITALS: Ht 147.3 cm; Wt 68.0 kg
[~2020-02-29 06:14] MED LIST changes: -ELIQ5TAB PO; +LR 1,000 ML IV ONE; +ceFAZolin SOD 2 GM in IV 1 EA IV ONE
[2020-02-29] MEDS ORDERED: ELIQ5TAB PO (07:14)
[2020-02-29] MEDS ORDERED: CONRAY-60 60% 50ML VIAL (Q9961) As Ordered ONE (07:14)
[2020-02-29] MEDS ORDERED: MIDAZOLAM INJ 2MG/2ML VIAL (J2250 PER 1MG) As Ordered ONE (07:21)
[2020-02-29] MEDS ORDERED: LIDOCAINE 2% 100MG/5ML SDV (FOR ANES.) As Ordered ONE (07:21)
[2020-02-29] MEDS ORDERED: dexameTHASONE 4 MG/ML 1ML VIAL (J1100 PER 1MG) As Ordered ONE (07:21)
[2020-02-29] MEDS ORDERED: ONDANSETRON 4MG/2ML VIAL As Ordered ONE (07:21)
[2020-02-29] MEDS ORDERED: propofoL 200 MG/20 ML VIAL As Ordered ONE (07:21)
[2020-02-29] MEDS ORDERED: fentaNYL 100 MCG/2 ML INJECTION (J3010) As Ordered ONE (07:22)
[2020-02-29] MEDS ORDERED: ePHEDrine SULFATE 25 MG/5 ML(5MG/ML) SYRINGE As Ordered ONE (08:02)
[2020-02-29] MEDS ORDERED: LACRILUBE (AKWA TEARS) OPHTH OINT 3.5 GM As Ordered ONE (08:44)
--- NOTE | 2020-02-29 08:58 | REP ---
INDICATION: LEFT STENT PLACEMENT. COMPARISON: Comparison retrograde pyelogram January 08, 2020.. TECHNIQUE: Six views. 33 seconds of fluoroscopy time is reported. FINDINGS: A sequence of 6 last image hold fluoroscopically obtained spot radiographs of the abdomen document left ureteral cannulation, contrast injection, and stent placement. IMPRESSION: Retrograde pyelogram. Procedural a imaging. <Electronically signed by Russel Das > 02/29/20 [id number]
[2020-02-29] MEDS ORDERED: PERCOCET 5MG/325MG TAB PO PRN (09:15)
[2020-02-29] MEDS ORDERED: ONDANSETRON 4MG/2ML VIAL IV PRN (09:15)
[2020-02-29] MEDS ORDERED: LR 1,000 ML IV SCH (09:15)
[2020-02-29] MEDS ORDERED: NORCO, ANEXSIA 5/325MG TABLET (HYDROcodone/ACETAMINOPHEN) PO PRN (09:15)
[2020-02-29] MEDS ORDERED: fentaNYL 100 MCG/2 ML INJECTION (J3010) IV PRN (09:15)
--- NOTE | 2020-02-29 10:19 | RO ---
OPERATIVE NOTE DATE OF OPERATION: 02/29/2020 PREOPERATIVE DIAGNOSIS: Left ureteral stone. POSTOPERATIVE DIAGNOSIS: Left ureteral stone. PROCEDURES: Cystoscopy, left ureteroscopy with basket extraction of stone; left retrograde pyelogram with intraoperative interpretation of images; left ureteral stent exchange. SURGEON: Rivas Diaz MD COOK FRY: None. ANESTHESIA: General. OPERATIVE INDICATIONS: This is an 84-year-old female who was found to have obstructing 5 to 6 mm proximal left ureteral stone several weeks ago. She had a left ureteral stent placed at that time. She is brought to the operating room today for removal of the stone. DESCRIPTION OF PROCEDURE: The patient was brought to the operating room and general anesthesia was induced. Prophylactic antibiotics were infused. She was placed in the dorsal lithotomy position, and prepped and draped in the usual sterile fashion. A rigid cystoscope was inserted in the urethral meatus and advanced into the bladder. The previously placed stent was seen. That left ureteral stent was then removed until the distal end was protruding from the urethral meatus. A guidewire was advanced up the stent into the left collecting system. The stent was then removed. I then advanced the ureteral access sheath up the left collecting system. I went up the access sheath with a flexible ureteroscope and within the proximal ureter, two approximately 3-4 mm stones were seen adjacent to each other. Both of these stones were removed using a basket. The patient also had a moderate amount of small clots inside her proximal ureter and kidney. Some of these clots were removed as well. I then examined the kidney thoroughly and no additional stones were seen inside the kidney. Once that was done, a retrograde pyelogram was performed and it was notable for mild left hydronephrosis with no extravasation. I then withdrew the ureteroscope along with the access sheath and no additional stones were seen inside the ureter. I then utilized the guidewire to advance a 7-Hebrew x 22-32 cm JJ ureteral stent up into the left collecting system. The wire was removed and there were adequate curls of the stent in the left renal pelvis and in the bladder. The bladder was then emptied of all fluid and this marked the conclusion of the procedure. The patient was then taken out of the dorsal lithotomy position, awakened from anesthesia, and transported to the recovery room in stable condition. ESTIMATED BLOOD LOSS: 10 mL. COMPLICATIONS: None. SPECIMEN: Kidney stones. PLAN: The patient will follow-up in the urology clinic in a few weeks for stent removal. ANTHONY
[2020-02-29 11:05] VITALS: BP 177/77
[2020-02-29] MEDS ORDERED: DESFLURANE 240 ML INHALANT As Ordered ONE (16:32)
[2020-02-29] MEDS ORDERED: SEVOFLURANE INHAL SOLN 250 ML BTL As Ordered ONE (16:32)
[2020-03-01] MEDS ORDERED: D31000TA2 PO (10:10)
== END 2020-02-29 11:05 | disposition home or self-care (01) ==
LOC: M SDC 06:14
PROVIDERS: ATTEND Urology
DX: N20.1 Calculus of ureter (principal); G35 Multiple sclerosis; E78.00 Pure hypercholesterolemia, unspecified; I10 Essential (primary) hypertension; Z85.3 Personal history of malignant neoplasm of breast; Z79.899 Other long term (current) drug therapy
CPT/HCPCS: 52332; 52352; 74420; 82365; 88300; J0690; J1100; J2250; J2405; J3010; Q9961

== ENCOUNTER 2020-03-01 08:53 | Inpatient (IN) | payer MEDICARE, OTHER ==
[~2020-03-01] VITALS: Ht 147.3 cm; Wt 69.9 kg
[~2020-03-01 08:53] MED LIST changes: +ELIQ5TAB PO; -LR 1,000 ML IV ONE; -ceFAZolin SOD 2 GM in IV 1 EA IV ONE
[2020-03-01] MEDS ORDERED: ACETAMINOPHEN 325 MG TAB PO ONE (09:15)
[2020-03-01] MEDS ORDERED: NS 1,000 ML IV ONE (09:15)
[2020-03-01] MEDS ORDERED: PIPERACILLIN/TAZOBACTAM SOD 3.375 GM in D5W MINI-BAG PLUS 50 ML IV ONE (09:15)
[2020-03-01] MEDS ORDERED: ALBUTEROL SULFATE 2.5 MG/0.5 ML INH NEB SOLN INH ONE (09:15)
[2020-03-01] MEDS ORDERED: IPRATROPIUM 0.02% SOLN 0.5MG 2.5ML NEB INH ONE (09:15)
[2020-03-01] MEDS ORDERED: LIDOCAINE 2% 5ML JELLY UROJET TOP ONE (09:15)
--- NOTE | 2020-03-01 09:38 | REP ---
INDICATION: sob. COMPARISON: Comparison chest x-ray January 15, 2020.. TECHNIQUE: Single sitting AP portable radiograph. FINDINGS: Oxygen delivery tubing and monitoring electrodes are seen. There are surgical clips in the right axillary soft tissues. There is an 8 linear increased density in the left base along the left heart border which may reflect discoid atelectasis. No definite infiltrate. Heart size is borderline unchanged. The aorta is calcific. IMPRESSION: Borderline size heart. Discoid atelectasis suspected left base. <Electronically signed by Russel Das > 03/01/20 [id number]
[2020-03-01 09:46] LABS: BASO % 0.2 % (0.0-1.0); HEMATOCRIT 38.9 % (36.0-47.0); HEMOGLOBIN 12.1 g/dl (12.0-15.5); LYMPH # 0.7 10^3/uL (1.5-5.0); LYMPH % 6.3 % (24.0-44.0); MEAN CORPUSCULAR HEMOGLOBIN 31.2 pg (27.0-33.0); MEAN CORPUSCULAR HGB CONC 31.1 g/dl (32.0-36.5); MEAN CORPUSCULAR VOLUME 100.3 fl (80.0-96.0); MONO # 0.3 10^3/uL (0.0-0.8); MONO % 2.5 % (0.0-5.0); NEUTROPHILS # 9.8 10^3/uL (1.5-8.5); NEUTROPHILS % 89.8 % (36.0-66.0); PLATELET COUNT, AUTOMATED 251 10^3/uL (150-450); RED BLOOD COUNT 3.88 10^6/uL (4.00-5.40); WHITE BLOOD COUNT 10.9 10^3/uL (4.0-10.0)
[2020-03-01 09:50] LABS: ABG BASE EXCESS 7.1 (-2.0-2.0); ABG HCO3 30.8 MEQ/L (22.0-26.0); ABG PARTIAL PRESSURE CO2 40.3 mmHg (35.0-45.0); ABG STANDARD HCO3 30.9 MEQ/L (22.0-26.0); ABG pH (ARTERIAL) 7.501 UNITS (7.350-7.450)
[2020-03-01 10:02] LABS: INR 1.58; PROTHROMBIN TIME 19.2 SECONDS (12.5-14.3)
[2020-03-01] MEDS ORDERED: D31000TA2 PO (10:10)
[2020-03-01 10:17] LABS: ALBUMIN 2.9 GM/DL (3.2-5.2); ALT/SGPT 15 U/L (12-78); AMYLASE 27 U/L (25-115); BILIRUBIN,DIRECT 0.3 MG/DL (0.0-0.2); BILIRUBIN,TOTAL 1.1 MG/DL (0.2-1.0); BLOOD UREA NITROGEN 9 MG/DL (7-18); CALCIUM LEVEL 9.4 MG/DL (8.8-10.2); CARBON DIOXIDE LEVEL 30 MEQ/L (21-32); CHLORIDE LEVEL 102 MEQ/L (98-107); CPK CREATINE PHOSPHOKINASE 213 U/L (26-192); CREATININE FOR GFR 0.76 MG/DL (0.55-1.30); GLOMERULAR FILTRATION RATE > 60.0 (>32); GLUCOSE, FASTING 161 MG/DL (70-100); LIPASE 38 U/L (73-393); MB/CK RELATIVE INDEX 1.88 (< OR =4); POTASSIUM SERUM 3.6 MEQ/L (3.5-5.1); SODIUM LEVEL 138 MEQ/L (136-145); TOTAL PROTEIN 7.5 GM/DL (6.4-8.2); TROPONIN I 0.03 NG/ML (< 0.10)
--- NOTE | 2020-03-01 10:52 | REP ---
INDICATION: found on ground by hubby. COMPARISON: Comparison CT study January 08, 2020.. TECHNIQUE: Helical scanning is acquired. 5 mm axial images were reformatted. Coronal MPR images were generated. FINDINGS: The bony calvarium is intact. There is vascular calcification in the distal internal carotid arteries. Visualized paranasal sinuses are clear. No intraorbital abnormality is seen. There is mild generalized volume loss. Small vessel atherosclerotic changes are noted in the periventricular white matter as on prior study. There is no evidence of intracranial hemorrhage. No mass or extra-axial fluid collection is seen. IMPRESSION: Vascular calcification, generalized volume loss, moderate small vessel atherosclerotic changes as seen on prior study January 08, 2020. No acute intracranial abnormality.. <Electronically signed by Russel Das > 03/01/20 [id number]
--- NOTE | 2020-03-01 11:19 | REP ---
INDICATION: recent stent exchange COMPARISON: Comparison CT study January 08, 2020.. TECHNIQUE: Helical scanning is acquired in 4 mm axial images were reformatted. Coronal and sagittal MPR images were generated and reviewed. FINDINGS: Preliminary digital cylinder machine operator radiograph shows multiple surgical clips and sutures in the abdomen. There is mild gaseous distention of the transverse colon. The lung bases are essentially clear on axial CT images. The liver and spleen are normal in size homogeneous in texture. There is a stable peripheral low-density lesion in the liver measuring 1 cm in diameter inferiorly unchanged. There is gallbladder wall calcification and calcified gallstones are seen near the neck of the gallbladder. This is unchanged. No abnormality is noted in the pancreas. Normal adrenal glands are seen. There is a double pigtail left ureteral stent noted in what appears to be good position with proximal pigtail loop in the renal collecting system and distal pigtail loop extending into the urinary bladder. There is a small quantity of post instrumentation air in the urinary bladder. Patient is status post abdominal wall hernia repair. No abdominal wall hernia is visible. No hydronephrosis is seen on the right. No urinary tract calculus is apparent. The previously noted calculus in the proximal ureter on the left is not seen. no bladder calculus is observed. No hydronephrosis noted. There is a cyst in the mid kidney on the left unchanged. Small and large bowel loops are unremarkable. The appendix is surgically absent as is the uterus. IMPRESSION: Left-sided double-pigtail stent in good position. No hydronephrosis seen. No urinary tract calculus is apparent. Cholelithiasis and gallbladder wall calcification again seen. Status post ventral hernia repair. <Electronically signed by Russel Das > 03/01/20 [id number]
[2020-03-01] MEDS ORDERED: LOMOTIL 2.5MG/0.025MG TABLET PO PRN (13:00)
[2020-03-01] MEDS ORDERED: NS 1,000 ML IV SCH (13:00)
--- NOTE | 2020-03-01 13:26 | HPEPDOC ---
[facility] Medical History & Physical Date of Admission Mar 01, 2020 Date of Service: Mar 01, 2020 Attending Physician: Divina March MD History and Physical CHIEF COMPLAINT: weakness, fever HISTORY OF PRESENT ILLNESS: Patient is an 84-year-old female with past medical history of nephrolithiasis status post stone basket extraction (02/29/2020), history of Escherichia coli bacteremia and UTI (12/2019), multiple sclerosis, neurogenic bladder, history of rhabdomyolysis, hypertension, hyperlipidemia who presented [facility] from home after being found on the floor by her . Per EMS,when they arrived patient had fever of 102.0. She denied chest pain, loss of consciousness, chills, n/v/d, abdominal pain but admitted to increased weakness since 02/29/20. 02/29/20 patient underwent stopped daily, left ureteroscopy with basket extraction of stone; left retrograde pyelogram with intraoperative interpretation of images; and left ureteral stent exchange. Need to undergo anesthesia for this procedure but was noted to have tolerated the procedure well per urology operative note. Stop the patient was discharged home to her tired but in no concerning shape. Over the evening there were no concerns and then this morning her the patient's found her on the ground with increased weakness. The patient has a history of increased weakness and was recently admitted to ARU for continued rehab. In the ER, VS were stable. Temp 100.2. She was noted to be 90% on RA, she was noticeably weak. She denied any pain. CXR: Borderline size heart. Discoid atelectasis suspected left base. CT head: Vascular calcification, generalized volume loss, moderate small vessel atherosclerotic changes as seen on prior study January 08, 2020, No acute intracranial abnormality. CT abd/pelvis: Left-sided double-pigtail stent in good position,No hydronephrosis seen No urinary tract calculus is apparent, cholelithiasis and gallbladder wall calcification again seen s/p ventral hernia repair. On neuro exam, there were no deficits or concern for MS flare. Patient was admitted for further evaluation of generalized weakness, fever. REVIEW OF SYSTEMS: Neg except for mentioned above PAST MEDICAL HISTORY: MS Neurogenic bladder UTI with infected Nephrolithiasis. Hx of E.Coli Sepsis Rhabdomyolysis Cholelithiasis. Hydronephrosis Hypertension. HLD. Osteoporosis. History right breast cancer status post mastectomy, chemotherapy, radiation Hx of DVT right leg PAST SURGICAL HISTORY: Mastectomy right breast carcinoma Hysterectomy Tonsillectomy Appendectomy Ventral hernia repair ALLERGIES: NKDA Please see below. MEDICATIONS: Please see below. FAMILY HISTORY: Father 79 cardiac issues, Mother 79 Breast Cancer. SOCIAL HISTORY: Non Smoker, No EtOH, lives in a6 step entrance 2 story home with . Uses a walker at baseline. Is [place] PHYSICAL EXAMINATION: VS: Please see below CONSTITUTIONAL: No acute distress, resting comfortably, AAO x 3 EYES: PERRLA, EOM intact HENT, MOUTH: Poor oral dentition, normocephalic, atraumatic, moist mucous membranes NECK: SUPPLE, no JVD, no lymphadenopathy, no carotid bruit CV: Regular rate and rhythm, S1S2 normal, no murmurs/rubs/gallops RESPIRATORY: Clear to auscultation bilaterally, no rales/rhonchi/wheezes GI: BS positive in 4 quadrants, soft, nontender, nondistended, no rebound or guarding, no organomegaly : Deferred MUSCULOSKELETAL: Normal ROM. No cyanosis, clubbing, swelling, joint deformity, +1-2 lower extremity edema INTEGUMENTARY: Intact, no rashes, no lesions, no erythema NEUROLOGIC: NEg for nystagmus, hyperreflexia, Cranial Nerves II-XII are intact, no focal deficits PSYCHIATRIC: Mood and affect are normal LABORATORY DATA: Please see below MICROBIOLOGY: UA +, UCx pending BCx pending IMAGING: CT head: Vascular calcification, generalized volume loss, moderate small vessel atherosclerotic changes as seen on prior study January 08, 2020, No acute intracranial abnormality. CXR: Borderline size heart. Discoid atelectasis suspected left base. CT abd/pelvis: Left-sided double-pigtail stent in good position,No hydronephrosis seen No urinary tract calculus is apparent, Cholelithiasis and gallbladder wall calcification again seen s/p ventral hernia repair. Echocardiogram 12/2019: 1. Study is of acceptable technical quality. Underlying sinus rhythm with wide QRS complex. 2. Normal left ventricular (LV) size with overall hyperdynamic left ventricular (LV) systolic function and grade 1 diastolic dysfunction, EF of 65-70% 3. No hemodynamically significant valvular disease. 4. Likely normal or borderline elevated central venous pressure and normal or borderline elevated pulmonary artery pressure. ASSESSMENT: 84-year-old female with past medical history of nephrolithiasis status post stone basket extraction (02/29/2020), history of Escherichia coli bacteremia and UTI (12/2019), multiple sclerosis, neurogenic bladder, history of rhabdomyolysis, hypertension, hyperlipidemia admitted for further evaluation of generalized weakness, fever. PLAN: #Generalized weakness s/p recent ambulatory surgery with anesthesia, + fever. -Hx of falls, weakness with recent ARU admission in 12/2019 -Recent surgery with fever today, f/u fever w/u below -C/w IVFs, tele for 24 hours -C/w modified diet, PT/OT, optimize nutrition #Fever possibly 2/2 to UTI, other infectious source vs. atelectasis s/p anesthesia -Recent cystoscopy, CT abd/pelvis neg for acute issue. Hx of E. coli bacteremia and UTI in 12/2019 -CXR: above -COVID neg -F/u BCx, UCx -Denies abd pain, chest pain, sick contacts -C/w ceftriaxone for now #Left ureteral stone s/p cystoscopy, left ureteroscopy with basket extraction of stone; left retrograde pyelogram, left ureteral stent exchange, POD 1. -WBC 10.9, afebrile since admission, denies left flank, groin pain -CT abd/pelvis discussed with Dr. Beyer, no urology consult at this time. 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 #Metabolic alkalosis with secondary respiratory alkalosis -No n/v, use of NG suctioning recently, antacid use, diuretics -Atelectasis noted on CXR, CHF to explain respiratory alkalosis -On IVFs, monitor lytes closely #Multiple Sclerosis -Stable, currently not in flare #Neurogenic bladder -C/w home meds #HTN -Stable -C/w home meds #HLD -C/w statin #DVT px -Eliquis BID DISPOSITION: Admitted under inpatient status, plan is home after PT/OT evaluation and is medically improved. Vital Signs Vital Signs Date Time Temp Pulse Resp B/P (MAP) Pulse Ox O2 Delivery O2 Flow Rate FiO2 03/01/20 12:08 76 20 99 Nasal Cannula 2.0 03/01/20 11:36 135/61 (85) 03/01/20 09:07 100.3 Laboratory Data Labs 24H Laboratory Tests 2 03/01/20 09:22: Coronavirus (COVID-19)(PCR) NEGATIVE, Influenza Type A (RT-PCR) NEGATIVE, In fluenza Type B (RT-PCR) NEGATIVE, Respiratory Syncytial Virus (PCR) NEGATIVE 03/01/20 09:31: Urine Color REDH, Urine Appearance CLOUDYH, Urine pH 6.0, Urine Specific [place] 1.014, Urine Protein 2+H, Urine Glucose (UA) 1+H, Urine Ketones NEGATIVE, Urine Blood 3+H, Urine Nitrite NEGATIVE, Urine Bilirubin NEGATIVE, Urine Urobilinogen 0.2, Urine Leukocyte Esterase 1+H, Urine WBC (Auto) 17H, Urine RBC (Auto) TNTCH, Urine Hyaline Casts (Auto) 0, Urine Bacteria (Auto) NEGATIVE, Urine Squamous Epithelial Cells 1, Urine Amorphous Sediment SMALLH, Urine Sperm (Auto) , Blood Gas Bicarbonate Standard 30.9H, Arterial Blood pH 7.501H, Arterial Blood Partial Pressure CO2 40.3, Arterial Blood Partial Pressure O2 85.0, Arterial Blood Total CO2 32.0H, Arterial Blood HCO3 30.8H, Arterial Blood Base Excess 7.1H, Arterial Blood Oxygen Saturation 97.0 03/01/20 09:32: Immature Granulocyte % (Auto) 1.2, Neutrophils (%) (Auto) 89.8H, Lymphocytes (%) (Auto) 6.3L, Monocytes (%) (Auto) 2.5, Eosinophils (%) (Auto) 0.0, Basophils (%) (Auto) 0.2, Neutrophils # (Auto) 9.8H, Lymphocytes # (Auto) 0.7L, Monocytes # (Auto) 0.3, Eosinophils # (Auto) 0.0, Basophils # (Auto) 0.0, Nucleated Red Blood Cells % (auto) 0.0, Prothrombin Time 19.2H, Prothromb Time International Ratio 1.58, Activated Partial Thromboplast Time 55.0H, Anion Gap 6L, Glomerular Filtration Rate > 60.0, Lactic Acid Level 2.2*H, Calcium Level 9.4, Total Bilirubin 1.1H, Direct Bilirubin 0.3H, Aspartate Amino Transf (AST/SGOT) 19, Alanine Aminotransferase (ALT/SGPT) 15, Alkaline Phosphatase 85, Total Creatine Kinase 213H, Creatine Kinase MB 4.0H, Creatine Kinase MB Relative Index 1.88, Troponin I 0.03, GU-Fci-Q-Type Natriuretic Peptide 3257H, Total Protein 7.5, Albumin 2.9L, Albumin/Globulin Ratio 0.6L, Amylase Level 27, Lipase 38L CBC/BMP Laboratory Tests 03/01/20 09:32 Microbiology Microbiology 03/01/20 Urine Culture, Received Pending 03/01/20 Blood Culture, Received Pending 03/01/20 Blood Culture, Received Pending Home Medications Scheduled Amlodipine Besylate (Amlodipine Besylate) 5 Mg Tablet, 5 MG PO QHS Apixaban (Eliquis) 5 Mg Tablet, 10 MG PO BID Cholecalciferol (Vitamin D3) (Vitamin D3) 1,000 Unit Tablet, 1,000 UNITS PO DAILY Dorzolamide HCl/Timolol Maleat (Dorzolamide-Timolol Eye Drops) 10 Ml Drops, 1 DROP OU BID Losartan Potassium (Losartan Potassium) 100 Mg Tablet, 100 MG PO QHS Nitrofurantoin Macrocrystal (Nitrofurantoin) 50 Mg Capsule, 50 MG PO DAILY Oxybutynin Chloride (Oxybutynin Chloride) 5 Mg Tablet, 5 MG PO BID Potassium Chloride (Potassium Chloride) 10 Meq Capsule.er, 10 MEQ PO BID Pravastatin Sodium (Pravastatin Sodium) 20 Mg Tablet, 20 MG PO QHS Travoprost (Travatan Z) 0.004% 2.5ML Drops, 1 DROP OU QHS Scheduled PRN Diphenoxylate HCl/Atropine (Lomotil 2.5-0.025 mg Tablet) 1 Each Tablet, 1 TAB PO TID PRN for DIARRHEA Allergies Coded Allergies: No Known Allergies (Verified , 02/13/20) A-FIB/CHADSVASC A-FIB History Current/History of A-Fib/PAF?: No Current PO Anticoag Therapy: Yes Age/Risk Factor Scoring CHADSVASC: CHADSVASC Response (Comments) Value Age Risk Factor Age >/= 75 years old 2 Gender Risk Factor Female 1 Hx of CHF Yes 1 Hx of HTN Yes 1 Hx of Stroke/TIA/or VTE No 0 Hx of Diabetes No 0 Hx of Vascular Disease No 0 Total 5 Treatment Treatment ordered: Other Other anticoagulant ordered: Divina Ruth MD Mar 01, 2020 13:26
[2020-03-01 15:30] VITALS: BP 105/58
[2020-03-01] MEDS: oxyBUTYnin 5 MG TAB PO SCH ×2 (15:51→21:02)
[2020-03-01] MEDS: APIXABAN 5 MG TAB (ELIQUIS) PO SCH ×2 (15:52→21:03)
[2020-03-01] MEDS: POTASSIUM CHLORIDE 10 MEQ SR TABLET PO SCH ×2 (15:52→21:02)
[2020-03-01] MEDS: COSOPT OCUMETER PLUS 10ML (DORZOLAMIDE/TIMOLOL) OU SCH ×2 (15:52→21:01)
[2020-03-01] MEDS: cefTRIAXone SOD 1 GM in D5W MINI-BAG PLUS 50 ML IV SCH (16:02)
[2020-03-01] MEDS: VITAMIN D 1,000 INTERNATIONAL UNITS TABLET PO SCH (16:04)
--- NOTE | 2020-03-01 16:52 | ECGEPIP ---
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
[2020-03-01] MEDS ORDERED: ACETAMINOPHEN TAB 650MG DOSE (2X325MG) PO PRN (17:00)
[2020-03-01 17:36] VITALS: BP 127/67
[2020-03-01] MEDS: LATANOPROST 0.005% OPHTH SOLN 2.5 ML OU SCH (21:01)
[2020-03-01] MEDS: PRAVASTATIN 20 MG TAB PO SCH (21:02)
[2020-03-01] MEDS: LOSARTAN 50MG TABLET PO SCH (21:03)
[2020-03-01] MEDS: amLODIPine 5 MG TAB PO SCH (21:03)
[2020-03-01 22:00] VITALS: BP 123/66
[2020-03-02] MEDS: NYSTATIN 100,000 UNITS/GM TOPICAL PWD 15 GM TOP PRN ×2 (04:47→21:07)
[2020-03-02 06:00] VITALS: BP 133/70
[2020-03-02 06:47] LABS: HEMATOCRIT 35.6 % (36.0-47.0); HEMOGLOBIN 10.5 g/dl (12.0-15.5); MEAN CORPUSCULAR HEMOGLOBIN 30.9 pg (27.0-33.0); MEAN CORPUSCULAR HGB CONC 29.5 g/dl (32.0-36.5); MEAN CORPUSCULAR VOLUME 104.7 fl (80.0-96.0); PLATELET COUNT, AUTOMATED 215 10^3/uL (150-450); WHITE BLOOD COUNT 9.7 10^3/uL (4.0-10.0)
[2020-03-02 07:12] LABS: ALBUMIN 2.1 GM/DL (3.2-5.2); ALT/SGPT 15 U/L (12-78); BILIRUBIN,TOTAL 0.5 MG/DL (0.2-1.0); BLOOD UREA NITROGEN 12 MG/DL (7-18); CALCIUM LEVEL 8.2 MG/DL (8.8-10.2); CARBON DIOXIDE LEVEL 27 MEQ/L (21-32); CHLORIDE LEVEL 108 MEQ/L (98-107); CREATININE FOR GFR 0.63 MG/DL (0.55-1.30); GLOMERULAR FILTRATION RATE > 60.0 (>32); GLUCOSE, FASTING 109 MG/DL (70-100); POTASSIUM SERUM 3.7 MEQ/L (3.5-5.1); SODIUM LEVEL 140 MEQ/L (136-145); TOTAL PROTEIN 5.8 GM/DL (6.4-8.2)
[2020-03-02] MEDS: oxyBUTYnin 5 MG TAB PO SCH ×2 (08:45→21:08)
[2020-03-02] MEDS: APIXABAN 5 MG TAB (ELIQUIS) PO SCH ×2 (08:45→21:09)
[2020-03-02] MEDS: POTASSIUM CHLORIDE 10 MEQ SR TABLET PO SCH ×2 (08:45→21:09)
[2020-03-02] MEDS: VITAMIN D 1,000 INTERNATIONAL UNITS TABLET PO SCH (08:46)
[2020-03-02] MEDS: COSOPT OCUMETER PLUS 10ML (DORZOLAMIDE/TIMOLOL) OU SCH ×2 (08:46→21:07)
[2020-03-02 10:49] LABS: NT-PRO BNP 2510 PG/ML (<450)
[2020-03-02] MEDS: cefTRIAXone SOD 1 GM in D5W MINI-BAG PLUS 50 ML IV SCH (13:10)
[2020-03-02 14:00] VITALS: BP 154/81
--- NOTE | 2020-03-02 16:16 | IPNPDOC ---
Date Seen The patient was seen on 03/02/20. Progress Note SUBJECTIVE: Afebrile overnight. IVFs stopped due to concern for increased crackles on exam. LA wnl this AM. Given 40 mg IV lasix to help with diuresis, BNP improving. Denies incr SOB, fevers, chills, n/v/d. OBJECTIVE: PHYSICAL EXAMINATION: VS: Please see below CONSTITUTIONAL: No acute distress, resting comfortably, AAO x 3 EYES: PERRLA, EOM intact HENT, MOUTH: Poor oral dentition, normocephalic, atraumatic, moist mucous membranes NECK: SUPPLE, no JVD, no lymphadenopathy, no carotid bruit CV: Regular rate and rhythm, S1S2 normal, no murmurs/rubs/gallops RESPIRATORY: Mild posterior bibasilar crackles , no rales/rhonchi/wheezes GI: BS positive in 4 quadrants, soft, nontender, nondistended, no rebound or guarding, no organomegaly : Deferred MUSCULOSKELETAL: Normal ROM. No cyanosis, clubbing, swelling, joint deformity, +1-2 lower extremity edema INTEGUMENTARY: Intact, no rashes, no lesions, no erythema NEUROLOGIC: NEg for nystagmus, hyperreflexia, Cranial Nerves II-XII are intact, no focal deficits PSYCHIATRIC: Mood and affect are normal LABORATORY DATA: Please see below MICROBIOLOGY: UA +, UCx pending BCx pending IMAGING: CT head: Vascular calcification, generalized volume loss, moderate small vessel atherosclerotic changes as seen on prior study January 08, 2020, No acute intracranial abnormality. CXR: Borderline size heart. Discoid atelectasis suspected left base. CT abd/pelvis: Left-sided double-pigtail stent in good position,No hydronephrosis seen No urinary tract calculus is apparent, Cholelithiasis and gallbladder wall calcification again seen s/p ventral hernia repair. Echocardiogram 12/2019: 1. Study is of acceptable technical quality. Underlying sinus rhythm with wide QRS complex. 2. Normal left ventricular (LV) size with overall hyperdynamic left ventricular (LV) systolic function and grade 1 diastolic dysfunction, EF of 65-70% 3. No hemodynamically significant valvular disease. 4. Likely normal or borderline elevated central venous pressure and normal or borderline elevated pulmonary artery pressure. ASSESSMENT: 84-year-old female with past medical history of nephrolithiasis status post stone basket extraction (02/29/2020), history of Escherichia coli bacteremia and UTI (12/2019), multiple sclerosis, neurogenic bladder, history of rhabdomyolysis, hypertension, hyperlipidemia admitted for further evaluation of generalized weakness, fever. PLAN: #Generalized weakness s/p recent ambulatory surgery (02/29/20) with anesthesia, + fever. -Afebrile overnight. -Hx of falls, weakness with recent ARU admission in 12/2019 -When PT went to evaluate today, patient refused to participate. They will try again on 03/03/20 -C/w w/u fever as mentioned below -C/w modified diet, optimize nutrition #Fever possibly 2/2 to UTI, other infectious source vs. atelectasis s/p anesthesia -Afebrile overnight, WBC wnl, no other s/s of infection -Recent cystoscopy, CT abd/pelvis neg for acute issue. Hx of E. coli bacteremia and UTI in 12/2019 -CXR: above -COVID neg -F/u BCx, UCx -Denies abd pain, chest pain, sick contacts -C/w ceftriaxone (Day 2) #Left ureteral stone s/p cystoscopy, left ureteroscopy with basket extraction of stone; left retrograde pyelogram, left ureteral stent exchange, POD 1. -WBC wnl, afebrile since admission, denies left flank, groin pain -CT abd/pelvis discussed with Dr. Beyer, no urology consult at this time. 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 #Multiple Sclerosis -Stable, currently not in flare #Neurogenic bladder -C/w home meds #HTN -Stable -C/w home meds #HLD -C/w statin #DVT px -Eliquis BID Resolved issues: #Metabolic alkalosis with secondary respiratory alkalosis DISPOSITION: Admitted under inpatient status, plan is home after PT/OT evaluatio n and is medically improved. VS, I&O, 24H, Fishbone Vital Signs/I&O Vital Signs Date Time Temp Pulse Resp B/P (MAP) Pulse Ox O2 Delivery O2 Flow Rate FiO2 03/02/20 14:00 98.6 80 20 154/81 (105) 97 Room Air 03/02/20 08:45 2.0 I&O- Last 24 Hours up to 6 AM 03/02/20 06:00 Intake Total 2750 ml Output Total 50 ml Balance 2700 ml Laboratory Data 24H LABS Laboratory Tests 2 03/02/20 06:29: Nucleated Red Blood Cells % (auto) 0.0, Anion Gap 5L, Glomerular Filtration Rate > 60.0, Calcium Level 8.2L, Total Bilirubin 0.5#, Aspartate Amino Transf (AST/SGOT) 28, Alanine Aminotransferase (ALT/SGPT) 15, Alkaline Phosphatase 74, [id number]-[id number]-Type Natriuretic Peptide 2510H, Total Protein 5.8#L, Albumin 2.1#L, Albumin/Globulin Ratio 0.6L 03/02/20 08:50: Lactic Acid Level 1.8 CBC/BMP Laboratory Tests 03/02/20 06:29 Microbiology Microbiology 03/01/20 Urine Culture, Worksheet Pending 03/01/20 Blood Culture - Preliminary, Resulted No growth after 24 hours . All specim... 03/01/20 Blood Culture - Preliminary, Resulted No growth after 24 hours . All specim... Current Medications Current Medications Medications (Trade) Dose Ordered Sig/Lorene Route PRN Reason Start Time Stop Time Status Last Admin Dose Admin Acetaminophen (Tylenol Tab) 650 mg Q6HP PRN PO PAIN / FEVER 03/01/20 17:00 03/01/20 17:06 Amlodipine Besylate (Norvasc) 5 mg QHS PO 03/01/20 21:00 03/01/20 21:03 Apixaban (Eliquis) 10 mg BID PO 03/01/20 09:00 03/02/20 08:45 Ceftriaxone Sodium 1 gm/ Dextrose 50 ml @ 100 mls/hr Q24H IV 03/01/20 14:00 03/02/20 13:10 Diphenoxylate HCl/ Atropine (Lomotil 2.5mg/ 0.025mg) 1 ea TID PRN PO DIARRHEA 03/01/20 13:00 Dorzolamide/ Timolol (Cosopt Ocumeter Plus) 1 drop BID OU 03/01/20 09:00 03/02/20 08:46 Home Med (Med Rec Complete!) ASDIRECTED XX 03/01/20 10:15 03/01/20 10:16 DC Latanoprost (Xalatan 0.005% Op Soln) 1 drop QHS OU 03/01/20 21:00 03/01/20 21:01 Losartan Potassium (Cozaar) 100 mg QHS PO 03/01/20 21:00 03/01/20 21:03 Nystatin (Mycostatin Powder, Nystop) apply to rash BIDP PRN TOP RASH 03/01/20 23:45 03/02/20 04:47 Oxybutynin Chloride (Ditropan) 5 mg BID PO 03/01/20 09:00 03/02/20 08:45 Potassium Chloride (Micro-K Extencaps) 10 meq BID PO 03/01/20 09:00 03/02/20 08:45 Pravastatin Sodium (Pravachol) 20 mg QHS PO 03/01/20 21:00 03/01/20 21:02 Sodium Chloride 1,000 ml @ 100 mls/hr Q10H IV 03/01/20 13:00 03/02/20 03:14 DC 03/01/20 16:02 Vitamin D (Vitamin D) 1,000 units DAILY PO 03/01/20 09:00 03/02/20 08:46 Allergies Coded Allergies: No Known Allergies (Verified , 02/13/20) Divina March MD Mar 02, 2020 16:16
[2020-03-02] MEDS ORDERED: FUROSEMIDE 40MG/4ML VIAL (J1940) IV ONE (16:30)
[2020-03-02] MEDS: LATANOPROST 0.005% OPHTH SOLN 2.5 ML OU SCH (21:07)
[2020-03-02] MEDS: amLODIPine 5 MG TAB PO SCH (21:08)
[2020-03-02] MEDS: LOSARTAN 50MG TABLET PO SCH (21:09)
[2020-03-02] MEDS: PRAVASTATIN 20 MG TAB PO SCH (21:09)
[2020-03-02 22:00] VITALS: BP 129/85
[2020-03-03 06:00] VITALS: BP 131/64
[2020-03-03 06:21] LABS: HEMATOCRIT 33.5 % (36.0-47.0); HEMOGLOBIN 10.7 g/dl (12.0-15.5); MEAN CORPUSCULAR HEMOGLOBIN 32.2 pg (27.0-33.0); MEAN CORPUSCULAR HGB CONC 31.9 g/dl (32.0-36.5); MEAN CORPUSCULAR VOLUME 100.9 fl (80.0-96.0); PLATELET COUNT, AUTOMATED 204 10^3/uL (150-450); RED BLOOD COUNT 3.32 10^6/uL (4.00-5.40); WHITE BLOOD COUNT 7.3 10^3/uL (4.0-10.0)
[2020-03-03 06:47] LABS: ALBUMIN 2.2 GM/DL (3.2-5.2); ALT/SGPT 19 U/L (12-78); BILIRUBIN,TOTAL 0.6 MG/DL (0.2-1.0); BLOOD UREA NITROGEN 9 MG/DL (7-18); CALCIUM LEVEL 8.3 MG/DL (8.8-10.2); CARBON DIOXIDE LEVEL 34 MEQ/L (21-32); CHLORIDE LEVEL 102 MEQ/L (98-107); CREATININE FOR GFR 0.49 MG/DL (0.55-1.30); GLOMERULAR FILTRATION RATE > 60.0 (>32); GLUCOSE, FASTING 104 MG/DL (70-100); POTASSIUM SERUM 3.7 MEQ/L (3.5-5.1); SODIUM LEVEL 138 MEQ/L (136-145); TOTAL PROTEIN 5.4 GM/DL (6.4-8.2)
[2020-03-03] MEDS: oxyBUTYnin 5 MG TAB PO SCH ×2 (09:34→21:38)
[2020-03-03] MEDS: APIXABAN 5 MG TAB (ELIQUIS) PO SCH (09:34)
[2020-03-03] MEDS: POTASSIUM CHLORIDE 10 MEQ SR TABLET PO SCH ×2 (09:35→21:39)
[2020-03-03] MEDS: VITAMIN D 1,000 INTERNATIONAL UNITS TABLET PO SCH (09:35)
[2020-03-03] MEDS: COSOPT OCUMETER PLUS 10ML (DORZOLAMIDE/TIMOLOL) OU SCH ×2 (09:35→21:41)
[2020-03-03] MEDS: cefTRIAXone SOD 1 GM in D5W MINI-BAG PLUS 50 ML IV SCH (13:57)
[2020-03-03 14:00] VITALS: BP 195/78
--- NOTE | 2020-03-03 19:05 | IPNPDOC ---
Date Seen The patient was seen on 03/03/20. Progress Note SUBJECTIVE: Mild hematuria seen in bedside cannister, stopped eliquis. WBC wnl, H/H slightly decreased from admission; however, likely dilutional and watching with hematuria. PT: Would benefit from cont rehab. No acute complaints overnight and denies incr SOB, fevers, chills, n/v/d. OBJECTIVE: PHYSICAL EXAMINATION: VS: Please see below CONSTITUTIONAL: No acute distress, resting comfortably, AAO x 3 EYES: PERRLA, EOM intact HENT, MOUTH: Poor oral dentition, normocephalic, atraumatic, moist mucous membranes NECK: SUPPLE, no JVD, no lymphadenopathy, no carotid bruit CV: Regular rate and rhythm, S1S2 normal, no murmurs/rubs/gallops RESPIRATORY: Mild posterior bibasilar crackles , no rales/rhonchi/wheezes GI: BS positive in 4 quadrants, soft, nontender, nondistended, no rebound or guarding, no organomegaly : Deferred MUSCULOSKELETAL: Normal ROM. No cyanosis, clubbing, swelling, joint deformity, +1-2 lower extremity edema INTEGUMENTARY: Intact, no rashes, no lesions, no erythema NEUROLOGIC: NEg for nystagmus, hyperreflexia, Cranial Nerves II-XII are intact, no focal deficits PSYCHIATRIC: Mood and affect are normal LABORATORY DATA: Please see below MICROBIOLOGY: UCx: NG final BCx: NG to date IMAGING: CT head: Vascular calcification, generalized volume loss, moderate small vessel atherosclerotic changes as seen on prior study January 08, 2020, No acute intrac ranial abnormality. CXR: Borderline size heart. Discoid atelectasis suspected left base. CT abd/pelvis: Left-sided double-pigtail stent in good position,No hydronephrosis seen No urinary tract calculus is apparent, Cholelithiasis and gallbladder wall calcification again seen s/p ventral hernia repair. Echocardiogram 12/2019: 1. Study is of acceptable technical quality. Underlying sinus rhythm with wide QRS complex. 2. Normal left ventricular (LV) size with overall hyperdynamic left ventricular (LV) systolic function and grade 1 diastolic dysfunction, EF of 65-70% 3. No hemodynamically significant valvular disease. 4. Likely normal or borderline elevated central venous pressure and normal or borderline elevated pulmonary artery pressure. ASSESSMENT: 84-year-old female with past medical history of nephrolithiasis status post stone basket extraction (02/29/2020), history of Escherichia coli bacteremia and UTI (12/2019), multiple sclerosis, neurogenic bladder, history of rhabdomyolysis, hypertension, hyperlipidemia admitted for further evaluation of generalized weakness, fever. PLAN: #Hematuria s/p recent left ureteroscopy with basket extraction of stone; left retrograde pyelogram, left ureteral stent exchange, -Patient was noted to have dark olive/reddish tinted urine at the bedside today. -H/H has declined but it was believed this was dilutional as she was hydrated after admission -Stopped eliquis today -If hematuria resolves by 03/04/20 would consider restarting. If persists consider discussion with urology #Generalized weakness s/p recent ambulatory surgery (02/29/20) with anesthesia, + fever. -Hx of falls, weakness with recent ARU admission in 12/2019 -PT: Pt will benefit from cont rehab prior to D/C home. Will cont to assess. -C/w w/u fever as mentioned below -C/w modified diet, optimize nutrition #Fever possibly 2/2 infectious source vs. atelectasis s/p anesthesia -Afebrile since admission, WBC wnl, no other s/s of infection -Recent cystoscopy so possible fever s/p o/p procedure, anesthesia? -CT abd/pelvis neg for acute issue. -CXR: above -COVID neg -UCx: NG final -BCx: NG to date -Denies abd pain, chest pain, sick contacts -Stopped Ceftriaxone today (day 3) #Left ureteral stone s/p cystoscopy, left ureteroscopy with basket extraction of stone; left retrograde pyelogram, left ureteral stent exchange, POD 2. -WBC wnl, afebrile since admission, denies left flank, groin pain -New hematuria -CT abd/pelvis discussed with Dr. Beyer, no urology consult at this time. 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 #Multiple Sclerosis -Stable, currently not in flare #Neurogenic bladder -C/w home meds #HTN -Stable -C/w home meds #HLD -C/w statin #DVT px -Eliquis BID Resolved issues: #Metabolic alkalosis with secondary respiratory alkalosis DISPOSITION: Admitted under inpatient status, plan is home after PT/OT evaluation and is medically improved. VS, I&O, 24H, Fishbone Vital Signs/I&O Vital Signs Date Time Temp Pulse Resp B/P (MAP) Pulse Ox O2 Delivery O2 Flow Rate FiO2 03/03/20 14:00 97.7 86 18 195/78 (117) 86 Nasal Cannula 2.0 I&O- Last 24 Hours up to 6 AM 03/03/20 06:00 Intake Total 860 ml Output Total 550 ml Balance 310 ml Laboratory Data 24H LABS Laboratory Tests 2 03/03/20 05:52: Nucleated Red Blood Cells % (auto) 0.0, Anion Gap 2L, Glomerular Filtration Rate > 60.0, Calcium Level 8.3L, Total Bilirubin 0.6, Aspartate Amino Transf (AST/SGOT) 26, Alanine Aminotransferase (ALT/SGPT) 19, Alkaline Phosphatase 89, Total Protein 5.4L, Albumin 2.2L, Albumin/Globulin Ratio 0.7L CBC/BMP Laboratory Tests 03/03/20 05:52 Microbiology Microbiology 03/01/20 Urine Culture - Final, Complete 03/01/20 Blood Culture - Preliminary, Resulted No Growth after 48 hours. All Specime... 03/01/20 Blood Culture - Preliminary, Resulted No Growth after 48 hours. All Specime... Current Medications Current Medications Medications (Trade) Dose Ordered Sig/Lorene Route PRN Reason Start Time Stop Time Status Last Admin Dose Admin Acetaminophen (Tylenol Tab) 650 mg Q6HP PRN PO PAIN / FEVER 03/01/20 17:00 03/01/20 17:06 Amlodipine Besylate (Norvasc) 5 mg QHS PO 03/01/20 21:00 03/02/20 21:08 Apixaban (Eliquis) 10 mg BID PO 03/01/20 09:00 03/03/20 11:48 DC 03/03/20 09:34 Ceftriaxone Sodium 1 gm/ Dextrose 50 ml @ 100 mls/hr Q24H IV 03/01/20 14:00 03/03/20 13:57 Diphenoxylate HCl/ Atropine (Lomotil 2.5mg/ 0.025mg) 1 ea TID PRN PO DIARRHEA 03/01/20 13:00 Dorzolamide/ Timolol (Cosopt Ocumeter Plus) 1 drop BID OU 03/01/20 09:00 03/03/20 09:35 Home Med (Med Rec Complete!) ASDIRECTED XX 03/01/20 10:15 03/01/20 10:16 DC Latanoprost (Xalatan 0.005% Op Soln) 1 drop QHS OU 03/01/20 21:00 03/02/20 21:07 Losartan Potassium (Cozaar) 100 mg QHS PO 03/01/20 21:00 03/02/20 21:09 Nystatin (Mycostatin Powder, Nystop) apply to rash BIDP PRN TOP RASH 03/01/20 23:45 03/02/20 21:07 Oxybutynin Chloride (Ditropan) 5 mg BID PO 03/01/20 09:00 03/03/20 09:34 Potassium Chloride (Micro-K Extencaps) 10 meq BID PO 03/01/20 09:00 03/03/20 09:35 Pravastatin Sodium (Pravachol) 20 mg QHS PO 03/01/20 21:00 03/02/20 21:09 Sodium Chloride 1,000 ml @ 100 mls/hr Q10H IV 03/01/20 13:00 03/02/20 03:14 DC 03/01/20 16:02 Vitamin D (Vitamin D) 1,000 units DAILY PO 03/01/20 09:00 03/03/20 09:35 Allergies Coded Allergies: No Known Allergies (Verified , 02/13/20) Divina March MD Mar 03, 2020 19:05
[2020-03-03 19:19] VITALS: BP 113/73
[2020-03-03 21:38] VITALS: BP 134/77
[2020-03-03] MEDS: LOSARTAN 50MG TABLET PO SCH (21:38)
[2020-03-03] MEDS: PRAVASTATIN 20 MG TAB PO SCH (21:39)
[2020-03-03] MEDS: amLODIPine 5 MG TAB PO SCH (21:39)
[2020-03-03] MEDS: LATANOPROST 0.005% OPHTH SOLN 2.5 ML OU SCH (21:41)
[2020-03-03] MEDS: NYSTATIN 100,000 UNITS/GM TOPICAL PWD 15 GM TOP PRN (21:41)
[2020-03-03 22:00] VITALS: BP 134/77
[2020-03-04 06:00] VITALS: BP 127/63
[2020-03-04 06:45] LABS: HEMATOCRIT 35.4 % (36.0-47.0); HEMOGLOBIN 10.6 g/dl (12.0-15.5); MEAN CORPUSCULAR HEMOGLOBIN 30.1 pg (27.0-33.0); MEAN CORPUSCULAR HGB CONC 29.9 g/dl (32.0-36.5); MEAN CORPUSCULAR VOLUME 100.6 fl (80.0-96.0); PLATELET COUNT, AUTOMATED 229 10^3/uL (150-450); RED BLOOD COUNT 3.52 10^6/uL (4.00-5.40); WHITE BLOOD COUNT 7.1 10^3/uL (4.0-10.0)
[2020-03-04 07:05] LABS: ALBUMIN 2.1 GM/DL (3.2-5.2); ALT/SGPT 24 U/L (12-78); BILIRUBIN,TOTAL 0.6 MG/DL (0.2-1.0); BLOOD UREA NITROGEN 11 MG/DL (7-18); CALCIUM LEVEL 8.2 MG/DL (8.8-10.2); CARBON DIOXIDE LEVEL 32 MEQ/L (21-32); CHLORIDE LEVEL 105 MEQ/L (98-107); CREATININE FOR GFR 0.56 MG/DL (0.55-1.30); GLOMERULAR FILTRATION RATE > 60.0 (>32); GLUCOSE, FASTING 114 MG/DL (70-100); POTASSIUM SERUM 4.1 MEQ/L (3.5-5.1); SODIUM LEVEL 140 MEQ/L (136-145); TOTAL PROTEIN 5.5 GM/DL (6.4-8.2)
[2020-03-04] MEDS: VITAMIN D 1,000 INTERNATIONAL UNITS TABLET PO SCH (08:46)
[2020-03-04] MEDS: POTASSIUM CHLORIDE 10 MEQ SR TABLET PO SCH (08:46)
[2020-03-04] MEDS: COSOPT OCUMETER PLUS 10ML (DORZOLAMIDE/TIMOLOL) OU SCH (08:46)
[2020-03-04] MEDS: oxyBUTYnin 5 MG TAB PO SCH (08:46)
[2020-03-04] MEDS ORDERED: APIXABAN 5 MG TAB (ELIQUIS) PO SCH (09:00)
[2020-03-04 09:34] LABS: FOLATE 12.4 NG/ML (>5.4); VITAMIN B12 LEVEL 713 PG/ML (247-911)
--- NOTE | 2020-03-04 12:15 | IPNPDOC ---
Text Note Date of Service The patient was seen on 03/04/20. NOTE SUBJECTIVE: -No acute complaints overnight and denies incr SOB, fevers, chills, n/v/d. -No noted hematuria in the interim OBJECTIVE: PHYSICAL EXAMINATION: VS: Please see below. HDS CONSTITUTIONAL: No acute distress, resting comfortably, AAO x 3 EYES: PERRLA, EOM intact HENT, MOUTH: Poor oral dentition, normocephalic, atraumatic, moist mucous membranes NECK: SUPPLE, no JVD, no lymphadenopathy, no carotid bruit CV: Regular rate and rhythm, S1S2 normal, no murmurs/rubs/gallops RESPIRATORY: Trace posterior bibasilar crackles ,no rhonchi or wheezing GI: BS positive in 4 quadrants, soft, nontender, nondistended, no rebound or guarding, no organomegaly MUSCULOSKELETAL: Normal ROM. No cyanosis, clubbing, swelling, joint deformity, +1-2 lower extremity edema INTEGUMENTARY: Intact, no rashes, no lesions, no erythema NEUROLOGIC: Cranial Nerves II-XII are intact, no focal deficits PSYCHIATRIC: Mood and affect are normal LABORATORY DATA: Reviewed WBC 7.1 Hgb 10.6 platelets 229 na 140 K 4.1 Cr 0.56 MICROBIOLOGY: UCx: NG final BCx: NG to date IMAGING: CT head: Vascular calcification, generalized volume loss, moderate small vessel atherosclerotic changes as seen on prior study January 08, 2020, No acute intracranial abnormality. CXR: Borderline size heart. Discoid atelectasis suspected left base. CT abd/pelvis: Left-sided double-pigtail stent in good position,No hydronephrosis seen No urinary tract calculus is apparent, Cholelithiasis and gallbladder wall calcification again seen s/p ventral hernia repair. Echocardiogram 12/2019: 1. Study is of acceptable technical quality. Underlying sinus rhythm with wide QRS complex. 2. Normal left ventricular (LV) size with overall hyperdynamic left ventricular (LV) systolic function and grade 1 diastolic dysfunction, EF of 65-70% 3. No hemodynamically significant valvular disease. 4. Likely normal or borderline elevated central venous pressure and normal or borderline elevated pulmonary artery pressure. ASSESSMENT: 84-year-old W with past medical history of nephrolithiasis status post stone basket extraction (02/29/2020), history of Escherichia coli bacteremia and UTI (12/2019), multiple sclerosis, neurogenic bladder, history of rhabdomyolysis, hypertension, hyperlipidemia admitted for further evaluation of generalized weakness, fever now afebrile s/p 3d of ceftriaxone for presumed UTI though culture was negative, and noted hematuria that resolved, now with ongoing PT/OT evaluation for safe discharge planning. PLAN: #Hematuria s/p recent left ureteroscopy with basket extraction of stone; left retrograde pyelogram, left ureteral stent exchange, -Patient was noted to have dark olive/reddish tinted urine at the bedside on 03/03 --> AC was held--> H/H stable --> will resume her eliquis -Will restart her eliquis, if hematuria returns will consult urology #Generalized weakness s/p recent ambulatory surgery (02/29/20) with anesthesia, + fever. -Hx of falls, weakness with recent ARU admission in 12/2019, with ongoing PT/OT reporting some deconditioning and being screened for potential ARU admission -Fever workup yielded a +UA with a negative UCx, for which she did receive 3d of ceftriaxone with resolution of fevers. -C/w modified diet, optimize nutrition #Fever -Afebrile since admission, WBC wnl, no other s/s of infection -Recent cystoscopy so possible fever s/p o/p procedure, anesthesia? -CT abd/pelvis neg for acute issue. -CXR: above -COVID neg -UCx: NG final, s/p 3d of empiric ceftriaxone -BCx: NG to date #Left ureteral stone s/p cystoscopy, left ureteroscopy with basket extraction of stone; left retrograde pyelogram, left ureteral stent exchange, POD 3. -WBC wnl, afebrile since admission, denies left flank, groin pain -Hematuria now resolved, will restart AC -CT abd/pelvis discussed with Dr. Beyer at admission, no urology consult at this time. 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 #Multiple Sclerosis -Stable, currently not in flare -PT/OT #Neurogenic bladder -C/w home meds #HTN -Stable -C/w home meds #HLD -C/w statin #DVT px -Eliquis BID Resolved issues: #Metabolic alkalosis with secondary respiratory alkalosis DISPOSITION: Admitted under inpatient status, PT/OT evaluation and ongoing ARU screening. VS,Fishbone, I+O VS, Fishbone, I+O Laboratory Tests 03/04/20 06:11 Vital Signs Date Time Temp Pulse Resp B/P (MAP) Pulse Ox O2 Delivery O2 Flow Rate FiO2 03/04/20 06:00 97.0 74 20 127/63 (84) 94 Nasal Cannula 1.0 I&O- Last 24 Hours up to 6 AM 03/04/20 06:00 Intake Total 580 ml Output Total 675 ml Balance -95 ml JAMI GIBSON MD Mar 04, 2020 12:15
[2020-03-04 14:00] VITALS: BP 147/60
[2020-03-04] MEDS ORDERED: ELIQ5TAB PO (14:03)
[2020-03-04] MEDS ORDERED: NYST10006 TOP (14:03)
--- NOTE | 2020-03-04 14:25 | DS.PDOC ---
Discharge Summary General Date of Admission Mar 01, 2020 at 12:45 Date of Discharge 03/04/2020 Attending Physician: JAMI GIBSON MD Discharge Summary PROCEDURES PERFORMED DURING STAY: None ADMITTING DIAGNOSES: 1. Fever 2. Weakness DISCHARGE DIAGNOSES: Physical deconditioning Post procedural fever i/s/o of recent left ureteroscopy with basket extraction of stone; left retrograde pyelogram and left ureteral stent exchange MS Neurogenic bladder Hypertension. HLD. Osteoporosis. Hx of DVT right leg COMPLICATIONS/CHIEF COMPLAINT: Fever Weakness. HISTORY OF PRESENT ILLNESS: 84-year-old W with past medical history of nephrolithiasis status post stone basket extraction (02/29/2020), history of Escherichia coli bacteremia and UTI (12/2019), multiple sclerosis, neurogenic bladder, hypertension, hyperlipidemia who presented [facility] from home after being found on the floor by her . Per EMS,when they arrived patient had fever of 102.0. She denied chest pain, loss of consciousness, chills, n/v/d, abdominal pain but admitted to increased weakness since 02/29/20. 02/29/20 patient underwent left ureteroscopy with basket extraction of stone; left retrograde pyelogram with intraoperative interpretation of images; and left ureteral stent exchange and discharged home, but on discharge home was later found her on the ground with increased weakness by her . The patient has a history of increased weakness and was recently admitted to ARU for continued rehab. HOSPITAL COURSE: On admission, she was empirically placed on Ceftriaxone for a +UA in the setting of recent instrumentation but UCx was ultimately negative and ceftriaxone was stopped after 3 days. Her fevers resolved. Her course was c/b an episode of hematuria for which her eliquis that was still dosed at 10mg BID was held. Her H/H was however stable and I resumed eliquis at 5mg BID per standard dosing for a patient who has been on eliquis post 7 days for DVT/PE. She worked with PT and was screened by the ARU and deemed appropriate for ARU admission. She is now being discharged to the ARU. DISCHARGE MEDICATIONS: Please see below. ALLERGIES: Please see below. PHYSICAL EXAMINATION ON DISCHARGE: VITAL SIGNS: Please see below. CONSTITUTIONAL: No acute distress, resting comfortably, AAO x 3 EYES: PERRLA, EOM intact HENT, MOUTH: Poor oral dentition, normocephalic, atraumatic, moist mucous membranes NECK: SUPPLE, no JVD, no lymphadenopathy, no carotid bruit CV: Regular rate and rhythm, S1S2 normal, no murmurs/rubs/gallops RESPIRATORY: Trace posterior bibasilar crackles ,no rhonchi or wheezing GI: BS positive in 4 quadrants, soft, nontender, nondistended, no rebound or gu arding, no organomegaly MUSCULOSKELETAL: Normal ROM. No cyanosis, clubbing, swelling, joint deformity, +1-2 lower extremity edema INTEGUMENTARY: Intact, no rashes, no lesions, no erythema NEUROLOGIC: Cranial Nerves II-XII are intact, no focal deficits PSYCHIATRIC: Mood and affect are normal LABORATORY DATA: Please see below. IMAGING: CT head: Vascular calcification, generalized volume loss, moderate small vessel atherosclerotic changes as seen on prior study January 08, 2020, No acute intr acranial abnormality. CXR: Borderline size heart. Discoid atelectasis suspected left base. CT abd/pelvis: Left-sided double-pigtail stent in good position,No hydronephrosis seen No urinary tract calculus is apparent, Cholelithiasis and gallbladder wall calcification again seen s/p ventral hernia repair. Echocardiogram 12/2019: 1. Study is of acceptable technical quality. Underlying sinus rhythm with wide QRS complex. 2. Normal left ventricular (LV) size with overall hyperdynamic left ventricular (LV) systolic function and grade 1 diastolic dysfunction, EF of 65-70% 3. No hemodynamically significant valvular disease. 4. Likely normal or borderline elevated central venous pressure and normal or borderline elevated pulmonary artery pressure. PROGNOSIS: Good ACTIVITY: As tolerated DIET: 2g sodium diet DISCHARGE PLAN: ARU DISPOSITION: ARU DISCHARGE INSTRUCTIONS: 1. Per ARU. To continue eliquis at 5mg BID. ITEMS TO FOLLOWUP ON ON OUTPATIENT: 1. Deconditioning 2. Urology follow up post ARU discharge DISCHARGE CONDITION: Stable TIME SPENT ON DISCHARGE: 40 minutes. Vital Signs/I&Os Vital Signs Date Time Temp Pulse Resp B/P (MAP) Pulse Ox O2 Delivery O2 Flow Rate FiO2 03/04/20 06:00 97.0 74 20 127/63 (84) 94 Nasal Cannula 1.0 I&O- Last 24 Hours up to 6 AM 03/04/20 06:00 Intake Total 580 ml Output Total 675 ml Balance -95 ml Laboratory Data Labs 24H Laboratory Tests 2 03/04/20 06:11: Nucleated Red Blood Cells % (auto) 0.0, Anion Gap 3L, Glomerular Filtration Rate > 60.0, Calcium Level 8.2L, Total Bilirubin 0.6, Aspartate Amino Transf (AST/SGOT) 33, Alanine Aminotransferase (ALT/SGPT) 24, Alkaline Phosphatase 100, Total Protein 5.5L, Albumin 2.1L, Albumin/Globulin Ratio 0.6L, Vitamin B12 Level 713, Folate 12.4 CBC/BMP Laboratory Tests 03/04/20 06:11 Microbiology Microbiology 03/01/20 Urine Culture - Final, Complete 03/01/20 Blood Culture - Preliminary, Resulted No Growth after 72 hours. All specime... 03/01/20 Blood Culture - Preliminary, Resulted No Growth after 72 hours. All specime... Discharge Medications Scheduled Amlodipine Besylate (Amlodipine Besylate) 5 Mg Tablet, 5 MG PO QHS, (Reported) Apixaban (Eliquis) 5 Mg Tablet, 5 MG PO BID Cholecalciferol (Vitamin D3) (Vitamin D3) 1,000 Unit Tablet, 1,000 UNITS PO DAILY, (Reported) Dorzolamide HCl/Timolol Maleat (Dorzolamide-Timolol Eye Drops) 10 Ml Drops, 1 DROP OU BID, (Reported) Losartan Potassium (Losartan Potassium) 100 Mg Tablet, 100 MG PO QHS, (Reported) Nitrofurantoin Macrocrystal (Nitrofurantoin) 50 Mg Capsule, 50 MG PO DAILY, (Reported) Oxybutynin Chloride (Oxybutynin Chloride) 5 Mg Tablet, 5 MG PO BID, (Reported) Potassium Chloride (Potassium Chloride) 10 Meq Capsule.er, 10 MEQ PO BID, (Reported) Pravastatin Sodium (Pravastatin Sodium) 20 Mg Tablet, 20 MG PO QHS, (Reported) Travoprost (Travatan Z) 0.004% 2.5ML Drops, 1 DROP OU QHS, (Reported) Scheduled PRN Diphenoxylate HCl/Atropine (Lomotil 2.5-0.025 mg Tablet) 1 Each Tablet, 1 TAB PO TID PRN for DIARRHEA, (Reported) Nystatin (Nystop) 60 Gm Powder, 0 DOSE TOP BIDP PRN for RASH Allergies Coded Allergies: No Known Allergies (Verified , 02/13/20) JAMI GIBSON MD Mar 04, 2020 14:25
== END 2020-03-04 16:30 | DRG 854 ==
LOC: M ED 08:53 → M ED INP 12:45 → ENRESERV 13:04 → M MSPAV 15:22
PROVIDERS: ADMIT Internal Medicine; ATTEND Internal Medicine
PROC: 0TC78ZZ Extirpation of Matter from Left Ureter, Via Natural or Artificial Opening Endoscopic (ICD-10-PCS; principal; 2020-02-29)
PROC: 0T777DZ Dilation of Left Ureter with Intraluminal Device, Via Natural or Artificial Opening (ICD-10-PCS; 2020-02-29)
PROC: 0TP98DZ Removal of Intraluminal Device from Ureter, Via Natural or Artificial Opening Endoscopic (ICD-10-PCS; 2020-02-29)
DX: R50.82 Postprocedural fever (principal); N39.0 Urinary tract infection, site not specified; J98.11 Atelectasis; I50.32 Chronic diastolic (congestive) heart failure; E87.4 Mixed disorder of acid-base balance; N13.2 Hydronephrosis with renal and ureteral calculous obstruction; G35 Multiple sclerosis; N32.81 Overactive bladder; I11.0 Hypertensive heart disease with heart failure; E78.5 Hyperlipidemia, unspecified; M81.0 Age-related osteoporosis without current pathological fracture; R53.1 Weakness; Z85.3 Personal history of malignant neoplasm of breast; Z90.12 Acquired absence of left breast and nipple; Z92.21 Personal history of antineoplastic chemotherapy; Z92.3 Personal history of irradiation; Z86.718 Personal history of other venous thrombosis and embolism; Z79.01 Long term (current) use of anticoagulants; Z79.899 Other long term (current) drug therapy; Z20.828 Contact with and (suspected) exposure to other viral communicable diseases

== ENCOUNTER 2020-03-04 12:26 | Inpatient (IN) | payer MEDICARE, OTHER ==
[~2020-03-04] VITALS: Ht 147.3 cm; Wt 66.9 kg
[~2020-03-04 12:26] MED LIST changes: +D31000TA2 PO; +NITROFURANTOIN (MACROBID) 100 MG CAP PO SCH
[2020-03-04] MEDS ORDERED: ELIQ5TAB PO (14:03)
[2020-03-04] MEDS ORDERED: NYST10006 TOP (14:03)
[2020-03-04] MEDS ORDERED: BISACODYL 5 MG TAB PO PRN (14:30)
--- NOTE | 2020-03-04 15:45 | HPEPDOC ---
Aquarist Note DATE OF ADMISSION: 03-04-20 DATE OF SERVICE: 03-05-20 TIME OF ADMISSION: Please refer to physician's admission order. SOURCE OF ADMISSION INFORMATION: [facility] record and patient CHIEF COMPLAINT: UTI with worsening weakness due to multiple sclerosis HISTORY OF PRESENT ILLNESS: 84F pmh multiple sclerosis, e coli bacteremia December 2019 and nephrolithiasis 02-29-20 s/p stone basket extraction, neurogenic bladder, HTN, HLD who was recently discharged from [facility], but returned to the ED on 03-01-20 with altered mental status and fever with an elevated lactic acid and treated for sepsis secondary to UTI. She was started on IV Ceftriaxone and transitioned to suppressive oral antibiotic therapy. Her eliquis was held due to hematuria which resolved and then restarted on a lower dose appropriate for chronic DVT treatment given her history of a right LE DVT. She was evaluated by therapy, noted to have deficits and mobility below her prior level of function and deemed medically appropriate for discharge to ARU on 03-04-20. REVIEW OF SYSTEMS: The following is a completed review of systems and has been reviewed. Review of systems otherwise unremarkable. PAIN: Patient self reports no pain EYES: No recent vision changes EARS, NOSE, & THROAT: No throat pain, or dysphagia, or rhinorrhea CARDIOVASCULAR: Denies chest pain or palpitations PULMONARY: Denies shortness of breath GASTROINTESTINAL: Denies constipation/diarrhea GENITOURINARY: denies dysuria MUSCULOSKELETAL: generalized weakness NEUROLOGICAL:+MS HEMATOLOGICAL: denies easy bruising SKIN: intact PSYCHIATRIC: Unremarkable All other review of systems found to be negative. PAST MEDICAL HISTORY: As per HPI, right breast cancer s/p mastectomy, chemo/radiation, right LE DVT PAST SURGICAL HISTORY: Hysterectomy, right mastectomy, tonsillectomy, appendectomy, ventral hernia repair ALLERGIES: Please see below. MEDICATIONS: Please see below. FAMILY HISTORY: cardiac SOCIAL HISTORY: no etoh/illicit drugs/smoking DIET: . PHYSICAL EXAMINATION: VITAL SIGNS: Please see below. GENERAL: Pleasant and cooperative. No acute distress. HEENT: PERRL. Extraocular movements intact. Clear conjunctiva CARDIOVASCULAR: Regular rate and rhythm. No murmurs, rubs, or gallops LUNGS: Clear to auscultation bilaterally. No wheezes. No rhonchi ABDOMEN: Soft, nontender, nondistended. Positive bowel sounds. Normal active bowel sounds NEUROLOGICAL: Alert and oriented times three. Cranial nerves II through XII grossly intact. Sensation grossly intact EXTREMITIES: 4+\5 strength bilateral upper extremities. 4\5 strength right lower extremity. 4/5 strength in left lower extremity. +bilat LE edema SKIN: intact LABORATORY DATA: Please see below. IMAGING: Imaging documentation personally reviewed by record FUNCTIONAL STATUS: Premorbid: Modified Independent with mobility and ADLs On Admission: Mod-max assist for functional transfers, mobility, and ADLs GOALS: Mod-I to supervision for mobility, dressing, toileting, bathing, functional transfers ASSESSMENT:84-year-old F with past medical history of MS who presents status post sepsis in setting of UTI with worsening mobility due to MS PLAN: 1. Rehab- PT/OT advance mobility and ADLs, strengthen/stretch/maintain ROM of all limbs 2. Neuro- hx of MS with worsening function due to sepsis in setting of recurrent UTI- patient currently on prophylactic antibiotics 3. CV- hx of HTN c/u amlopidine and cozaar, medicine consulted to assist in overall management -HLD c/u statin 4. Resp- monitor for infection, meghna wa son 1L 02 on inpatient side, will attempt to taper off 5. Vasc- hx of RLE DVT, c/u appropriate dose of eliquis 5mb BID and monitor for hematuria or blood loss 6. - neurogenic bladder, c/u dytropan, monitor PVRs -s/p course of ceftriaxone for UTI, c/u macrobid 100mg daily for suppression- per med rec it appears she was on Macrodantin at home, but patient reports she did not take any prophylactic abx 7. Pain- tylneol prn 8. GI ppx- will hold off on this since patient to be on long-term antibiotic for recurrent UTI to avoid C diff infection, will check HH and if suspect GI bleed will start 9. DIspo- TBD POST ADMISSION PHYSICIAN EVALUATION: Medical and functional status: Description of medical status, medical assessment: As above. Rehabilitation diagnosis and current and prior cold morbid medical conditions as above. Risk of complications and plans to mitigate them as above. Description of functional status current status is as above. Prior status as above. Status compared to preadmission: There are no clinically significant differences between the patient's current status and the information described on the preadmission screening document. Treatment plan anticipated: Treatment plan is as described above. Required disciplines including physical therapy, occupational therapy, others as noted above Intensity of services: 3 hours a day, 6 days a week. Special considerations: There are no specific special or safety considerations that would likely preclude immediate implementation of an intensive rehabilitation program or subsequently influence the plan of care ATTESTATION: Considering all the information above, it is my best judgment that this patient requires intensive rehabilitation therapy as described above and an inpatient hospital environment due to the complexity of nursing, medical, and rehabilitation needs required by the patient. Furthermore, this patient can reasonably be expected to participate in an benefit from an inpatient rehabilitation stay with an interdisciplinary team approach to the delivery of rehabilitation care under the direction and supervision of rehabilitation physician PROGNOSIS: good. ESTIMATED LENGTH OF [id number] days. PROJECTED DISCHARGE DESTINATION: Home with family support and any durable medical equipment required to increase functional safety and mobility TIME SPENT COUNSELING AND COORDINATING INITIAL CARE: Greater than 70 minutes. Vital Signs Vital Signs Date Time Temp Pulse Resp B/P (MAP) Pulse Ox O2 Delivery O2 Flow Rate FiO2 03/04/20 16:20 99.0 85 18 157/80 (105) 95 Room Air Home Medications Scheduled Amlodipine Besylate (Amlodipine Besylate) 5 Mg Tablet, 5 MG PO QHS, (Reported) Apixaban (Eliquis) 5 Mg Tablet, 5 MG PO BID Cholecalciferol (Vitamin D3) (Vitamin D3) 1,000 Unit Tablet, 1,000 UNITS PO DAILY, (Reported) Dorzolamide HCl/Timolol Maleat (Dorzolamide-Timolol Eye Drops) 10 Ml Drops, 1 DROP OU BID, (Reported) Losartan Potassium (Losartan Potassium) 100 Mg Tablet, 100 MG PO QHS, (Reported) Nitrofurantoin Macrocrystal (Nitrofurantoin) 50 Mg Capsule, 50 MG PO DAILY, (Reported) Oxybutynin Chloride (Oxybutynin Chloride) 5 Mg Tablet, 5 MG PO BID, (Reported) Potassium Chloride (Potassium Chloride) 10 Meq Capsule.er, 10 MEQ PO BID, (Reported) Pravastatin Sodium (Pravastatin Sodium) 20 Mg Tablet, 20 MG PO QHS, (Reported) Travoprost (Travatan Z) 0.004% 2.5ML Drops, 1 DROP OU QHS, (Reported) Scheduled PRN Diphenoxylate HCl/Atropine (Lomotil 2.5-0.025 mg Tablet) 1 Each Tablet, 1 TAB PO TID PRN for DIARRHEA, (Reported) Nystatin (Nystop) 60 Gm Powder, 0 DOSE TOP BIDP PRN for RASH Allergies Coded Allergies: No Known Allergies (Verified , 02/13/20) A-FIB/CHADSVASC A-FIB History Current/History of A-Fib/PAF?: No Current PO Anticoag Therapy: Yes NAYELI MALONE MD Mar 04, 2020 15:44
[2020-03-04 16:20] VITALS: BP 157/80
[2020-03-04] MEDS: REMEDY PHYTOPLEX Z-GUARD PASTE 113GM TUBE (FROM STOREROOM PRODUCT) TOP SCH ×2 (18:15→20:52)
[2020-03-04] MEDS: LACTOBACILLUS ACIDOPHILUS CAP (BACID) PO SCH ×2 (18:15→20:49)
[2020-03-04] MEDS: NITROFURANTOIN (MACROBID) 100 MG CAP PO SCH (18:53)
[2020-03-04 20:00] VITALS: BP 137/77
[2020-03-04] MEDS: APIXABAN 5 MG TAB (ELIQUIS) PO SCH (20:49)
[2020-03-04] MEDS: POTASSIUM CHLORIDE 10 MEQ SR TABLET PO SCH (20:49)
[2020-03-04] MEDS: oxyBUTYnin 5 MG TAB PO SCH (20:49)
[2020-03-04] MEDS: PRAVASTATIN 20 MG TAB PO SCH (20:49)
[2020-03-04] MEDS: LOSARTAN 50MG TABLET PO SCH (20:50)
[2020-03-04] MEDS: amLODIPine 5 MG TAB PO SCH (20:50)
[2020-03-04] MEDS ORDERED: NYSTATIN 100,000 UNITS/GM TOPICAL PWD 15 GM TOP PRN (21:00)
[2020-03-04] MEDS: COSOPT OCUMETER PLUS 10ML (DORZOLAMIDE/TIMOLOL) OU SCH (21:00)
[2020-03-04] MEDS: ACETAMINOPHEN TAB 650MG DOSE (2X325MG) PO PRN (23:11)
[2020-03-05 06:00] VITALS: BP 135/68
[2020-03-05] MEDS: oxyBUTYnin 5 MG TAB PO SCH ×2 (07:38→20:47)
[2020-03-05] MEDS: LACTOBACILLUS ACIDOPHILUS CAP (BACID) PO SCH ×4 (07:38→20:47)
[2020-03-05] MEDS: VITAMIN D 1,000 INTERNATIONAL UNITS TABLET PO SCH (07:38)
[2020-03-05] MEDS: POTASSIUM CHLORIDE 10 MEQ SR TABLET PO SCH ×2 (07:38→20:47)
[2020-03-05] MEDS: APIXABAN 5 MG TAB (ELIQUIS) PO SCH ×2 (07:39→20:47)
[2020-03-05] MEDS: REMEDY PHYTOPLEX Z-GUARD PASTE 113GM TUBE (FROM STOREROOM PRODUCT) TOP SCH ×3 (07:41→20:48)
[2020-03-05] MEDS: NITROFURANTOIN (MACROBID) 100 MG CAP PO SCH (09:27)
[2020-03-05 12:23] LABS: BASO # 0.1 10^3/uL (0.0-0.2); BASO % 0.6 % (0.0-1.0); EOS # 0.2 10^3/uL (0.0-0.5); EOS % 2.5 % (0.0-3.0); HEMATOCRIT 40.6 % (36.0-47.0); HEMOGLOBIN 12.2 g/dl (12.0-15.5); MEAN CORPUSCULAR HEMOGLOBIN 30.4 pg (27.0-33.0); MEAN CORPUSCULAR VOLUME 101.2 fl (80.0-96.0); MONO # 0.6 10^3/uL (0.0-0.8); MONO % 6.5 % (0.0-5.0); NEUTROPHILS # 5.5 10^3/uL (1.5-8.5); NEUTROPHILS % 58.1 % (36.0-66.0); PLATELET COUNT, AUTOMATED 247 10^3/uL (150-450); RED BLOOD COUNT 4.01 10^6/uL (4.00-5.40); WHITE BLOOD COUNT 9.5 10^3/uL (4.0-10.0)
[2020-03-05 12:39] LABS: BLOOD UREA NITROGEN 10 MG/DL (7-18); CALCIUM LEVEL 9.3 MG/DL (8.8-10.2); CARBON DIOXIDE LEVEL 32 MEQ/L (21-32); CHLORIDE LEVEL 102 MEQ/L (98-107); CREATININE FOR GFR 0.71 MG/DL (0.55-1.30); GLOMERULAR FILTRATION RATE > 60.0 (>32); GLUCOSE, FASTING 124 MG/DL (70-100); POTASSIUM SERUM 4.6 MEQ/L (3.5-5.1); SODIUM LEVEL 138 MEQ/L (136-145)
[2020-03-05 14:00] VITALS: BP 153/88
[2020-03-05 20:30] VITALS: BP 131/81
[2020-03-05] MEDS: ACETAMINOPHEN TAB 650MG DOSE (2X325MG) PO PRN (20:39)
[2020-03-05] MEDS: amLODIPine 5 MG TAB PO SCH (20:47)
[2020-03-05] MEDS: PRAVASTATIN 20 MG TAB PO SCH (20:47)
[2020-03-05] MEDS: LOSARTAN 50MG TABLET PO SCH (20:47)
[2020-03-05] MEDS: COSOPT OCUMETER PLUS 10ML (DORZOLAMIDE/TIMOLOL) OU SCH (20:48)
[2020-03-06 06:00] VITALS: BP 152/80
[2020-03-06] MEDS: VITAMIN D 1,000 INTERNATIONAL UNITS TABLET PO SCH (07:18)
[2020-03-06] MEDS: LACTOBACILLUS ACIDOPHILUS CAP (BACID) PO SCH ×4 (07:18→20:39)
[2020-03-06] MEDS: oxyBUTYnin 5 MG TAB PO SCH ×2 (07:18→20:40)
[2020-03-06] MEDS: REMEDY PHYTOPLEX Z-GUARD PASTE 113GM TUBE (FROM STOREROOM PRODUCT) TOP SCH ×3 (07:19→20:41)
[2020-03-06] MEDS: NITROFURANTOIN (MACROBID) 100 MG CAP PO SCH (07:19)
[2020-03-06] MEDS: POTASSIUM CHLORIDE 10 MEQ SR TABLET PO SCH ×2 (07:19→20:40)
[2020-03-06] MEDS: APIXABAN 5 MG TAB (ELIQUIS) PO SCH ×2 (08:59→20:39)
--- NOTE | 2020-03-06 10:50 | IPNPDOC ---
PM&R Progress Note DATE OF SERVICE: Mar 06, 2020 Acupressure Therapist Progress Note Subjective: Patient reporting she is having loose stools and that her legs feel swollen. She denies having pain. REVIEW OF SYSTEMS: The following is a completed review of systems and has been reviewed. Review of systems otherwise unremarkable. PAIN: Patient self reports no pain EYES: No recent vision changes EARS, NOSE, & THROAT: No throat pain, or dysphagia, or rhinorrhea CARDIOVASCULAR: Denies chest pain or palpitations PULMONARY: Denies shortness of breath GASTROINTESTINAL: +loose stools GENITOURINARY: denies dysuria, +intermittent hematuria MUSCULOSKELETAL: generalized weakness NEUROLOGICAL:+MS HEMATOLOGICAL: denies easy bruising SKIN: intact PSYCHIATRIC: Unremarkable All other review of systems found to be negative. PHYSICAL EXAMINATION: VITAL SIGNS: Please see below. GENERAL: Pleasant and cooperative. No acute distress. HEENT: PERRL. Extraocular movements intact. Clear conjunctiva CARDIOVASCULAR: Regular rate and rhythm. No murmurs, rubs, or gallops LUNGS: Clear to auscultation bilaterally. No wheezes. No rhonchi ABDOMEN: Soft, nontender, nondistended. Positive bowel sounds. Normal active bowel sounds NEUROLOGICAL: Alert and oriented times three. Cranial nerves II through XII grossly intact. Sensation grossly intact EXTREMITIES: 4+\5 strength bilateral upper extremities. 4\5 strength right lower extremity. 4/5 strength in left lower extremity. +bilat LE edema SKIN: intact ASSESSMENT:84-year-old F with past medical history of MS who presents status post sepsis in setting of UTI with worsening mobility due to MS PLAN: 1. Rehab- PT/OT advance mobility and ADLs, strengthen/stretch/maintain ROM of all limbs 2. Neuro- hx of MS with worsening function due to sepsis in setting of recurrent UTI- patient currently on prophylactic antibiotics 3. CV- hx of HTN c/u amlopidine and cozaar, medicine consulted to assist in overall management- -HLD c/u statin - grdae 1 diastolic CHF with mild bilat LE, will fluid restrict 1800cc, and add daily weights 4. Resp- monitor for infection 5. Vasc- hx of RLE DVT, c/u appropriate dose of eliquis 5mb BID and monitor for hematuria or blood loss 6. - neurogenic bladder, c/u Ditropan, monitor PVRs -s/p course of ceftriaxone for UTI, c/u macrobid 100mg daily for suppression- per med rec it appears she was on Macrodantin at home, but patient reports she did not take any prophylactic abx -intermittent hematuria, c/u to monitor H/H while on lower dose of eliquis, clinically stable at this time 7. Pain- tylneol prn 8. GI ppx- will hold off on this since patient to be on long-term antibiotic for recurrent UTI to avoid C diff infection, will monitor HH and if suspect GI bleed will start -patient reporting loose stools, may be side effect of antibiotics as not on any stool softeners, if persists will order c diff assay 9. DIspo- TBD Allergies Coded Allergies: No Known Allergies (Verified , 02/13/20) Vital Signs Vital Signs Date Time Temp Pulse Resp B/P (MAP) Pulse Ox O2 Delivery O2 Flow Rate FiO2 03/06/20 06:00 98.7 81 18 152/80 (104) 97 Room Air Laboratory Data CBC/BMP Laboratory Tests 03/05/20 12:04 Labs 24H Laboratory Tests 2 03/05/20 12:04: Immature Granulocyte % (Auto) 0.3, Neutrophils (%) (Auto) 58.1, Lymphocytes (%) (Auto) 32.0, Monocytes (%) (Auto) 6.5H, Eosinophils (%) (Auto) 2.5, Basophils (%) (Auto) 0.6, Neutrophils # (Auto) 5.5, Lymphocytes # (Auto) 3.0, Monocytes # (Auto) 0.6, Eosinophils # (Auto) 0.2, Basophils # (Auto) 0.1, Nucleated Red Blood Cells % (auto) 0.0, Anion Gap 4L, Glomerular Filtration Rate > 60.0, Calcium Level 9.3 Current Medications Current Medications Current Medications Medications (Trade) Dose Ordered Sig/Lorene Route PRN Reason Start Time Stop Time Status Last Admin Dose Admin Acetaminophen (Tylenol Tab) 650 mg Q4HP PRN PO MILD PAIN (PS 1-4)/fever 03/04/20 17:00 03/05/20 20:39 Amlodipine Besylate (Norvasc) 5 mg QHS PO 03/04/20 21:00 03/05/20 20:47 Apixaban (Eliquis) 5 mg BID PO 12/8/20 21:00 03/06/20 08:59 Bisacodyl (Dulcolax Tab) 5 mg DAILYPRN PRN PO CONSTIPATION 03/04/20 14:30 Dorzolamide/ Timolol (Cosopt Ocumeter Plus) 1 drop QHS OU 03/04/20 21:00 03/05/20 20:48 Lactobacillus Acidophilus (Bacid) 1 ea WMHS PO 03/04/20 18:00 03/06/20 07:18 Losartan Potassium (Cozaar) 100 mg QHS PO 03/04/20 21:00 03/05/20 20:47 Nitrofurantoin Monoh/Nitrofur Macro (Macrobid) 50 mg DAILY PO 03/04/20 09:00 03/04/20 18:39 DC Nitrofurantoin Monoh/Nitrofur Macro (Macrobid) 100 mg DAILY PO 03/04/20 09:00 03/06/20 07:19 Nystatin (Mycostatin Powder, Nystop) 1 dose BIDP PRN TOP RASH 03/04/20 21:00 Oxybutynin Chloride (Ditropan) 5 mg BID PO 03/04/20 21:00 03/06/20 07:18 Potassium Chloride (Micro-K Extencaps) 10 meq BID PO 03/04/20 21:00 03/06/20 07:19 Pravastatin Sodium (Pravachol) 20 mg QHS PO 03/04/20 21:00 03/05/20 20:47 Vitamin D (Vitamin D) 1,000 units DAILY PO 03/05/20 09:00 03/06/20 07:18 NAYELI MALONE MD Mar 06, 2020 10:50
--- NOTE | 2020-03-06 10:55 | CR.PDOC ---
General Date of Consultation: Mar 06, 2020 Consultation REASON FOR CONSULTATION/CHIEF COMPLAINT: UTI with worsening weakness due to multiple sclerosis HISTORY OF PRESENT ILLNESS: 84-year-old W with past medical history of nephrolithiasis status post stone basket extraction (02/29/2020), history of Escherichia coli bacteremia and UTI (12/2019) completed the abx course , multiple sclerosis, neurogenic bladder, hypertension, hyperlipidemia who presented [facility] from home after being found on the floor by her , pt admitted to increased weakness since 02/29/20 and was thought to be coz of UTI . After evaluation on 02/29/20 patient underwent left ureteroscopy with basket extraction of stone; left retrograde pyelogram with intraoperative interpretation of images; and left ureteral stent exchange and discharged home, but on discharge home was later found her on the ground with increased weakness by her . On admission, she was empirically placed on Ceftriaxone for a +UA in the setting of recent instrumentation but UCx was ultimately negative and ceftriaxone was stopped after 3 days. Her fevers resolved. Her course was complicated by an episode of hematuria for which her eliquis that was still dosed at 10mg BID was held. Her H/H was however stable and we resumed eliquis at 5mg BID per standard dosing. She worked with PT and was screened by the ARU and deemed appropriate for ARU admission on 03-04-20.. REVIEW OF SYSTEMS: Pertinent positive findings as per HPI and rest negative PAST MEDICAL HISTORY: As per HPI, right breast cancer s/p mastectomy, chemo/radiation, right LE DVT PAST SURGICAL HISTORY: Hysterectomy, right mastectomy, tonsillectomy, appendectomy, ventral hernia repair ALLERGIES: Please see below. MEDICATIONS: Please see below. FAMILY HISTORY: cardiac SOCIAL HISTORY: no etoh/illicit drugs/smoking DIET: . PHYSICAL EXAMINATION: GENERAL: Pleasant and cooperative. No acute distress. HEENT: PERRL. Extraocular movements intact. Clear conjunctiva CARDIOVASCULAR: Regular rate and rhythm. No murmurs, rubs, or gallops LUNGS: Clear to auscultation bilaterally. No wheezes. No rhonchi ABDOMEN: Soft, nontender, nondistended. Positive bowel sounds. Normal active bowel sounds NEUROLOGICAL: Alert and oriented times three. Cranial nerves II through XII grossly intact. Sensation grossly intact EXTREMITIES: 4+\5 strength bilateral upper extremities. 4\5 strength right lower extremity. 4/5 strength in left lower extremity. Bilateral mild pedal edema LABORATORY DATA: Reviewed MICROBIOLOGY: Final cultures have been negative IMAGING: CT head: Vascular calcification, generalized volume loss, moderate small vessel atherosclerotic changes as seen on prior study January 08, 2020, No acute in tracranial abnormality. CT abd/pelvis: Left-sided double-pigtail stent in good position,No hydronephrosis seen No urinary tract calculus is apparent, Cholelithiasis and gallbladder wall calcification again seen s/p ventral hernia repair. Echocardiogram 12/2019: 1. Study is of acceptable technical quality. Underlying sinus rhythm with wide QRS complex. 2. Normal left ventricular (LV) size with overall hyperdynamic left ventricular (LV) systolic function and grade 1 diastolic dysfunction, EF of 65-70% 3. No hemodynamically significant valvular disease. 4. Likely normal or borderline elevated central venous pressure and normal or borderline elevated pulmonary artery pressure. Assessment and plan 84-year-old W with past medical history of nephrolithiasis status post stone basket extraction (02/29/2020), history of Escherichia coli bacteremia and UTI (12/2019) completed antibiotic treatment, multiple sclerosis, neurogenic bladder, hypertension, hyperlipidemia admitted for further evaluation of generalized weakness, fever now afebrile s/p 3d of ceftriaxone for presumed UTI though culture was negative and no other cause of fever identified also had mild hematuria for which Eliquis was initially held for a brief period of time and restarted with stable H&H and eventually discharged to the ARU and we have been consulted for medical management. 1. Generalized weakness : Hx of falls, weakness with recent ARU admission in 12/2019, with ongoing PT/OT reporting some deconditioning and currently in ARQ for rehabilitation. Other metabolic and infectious causes of generalized weakness have been ruled out. The patient got 3 days of antibiotics and all the cultures have been negative. The patient's fever has resolved. 2. Fever : Afebrile since admission, WBC wnl, no other s/s of infection . CT abd/pelvis neg for acute issue. COVID neg .. Repeat blood cultures and urine c ultures negative 3. Hematuria s/p recent left ureteroscopy with basket extraction of stone; left retrograde pyelogram, left ureteral stent exchang. The patient wasn't Eliquis. At that time which was held for a brief period of time and now continued. No complaints of hematuria and hemoglobin has been stable. 4. 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 Echo as above. Continue losartan. 2 g salt restriction. BNP is chronically elevated 5. Multiple Sclerosis : Stable, currently not in flare . PT/OT 6. Neurogenic bladder: C/w home meds 7. History of right leg DVT: Continue Eliquis 5 twice a day Activity as per primary Disposition as per primary Vital Signs/I&O Vital Signs Date Time Temp Pulse Resp B/P (MAP) Pulse Ox O2 Delivery O2 Flow Rate FiO2 03/06/20 06:00 98.7 81 18 152/80 (104) 97 Room Air I&O- Last 24 Hours up to 6 AM 03/06/20 06:00 Intake Total 860 ml Balance 860 ml Laboratory Data Labs 24H Laboratory Tests 2 03/05/20 12:04: Immature Granulocyte % (Auto) 0.3, Neutrophils (%) (Auto) 58.1, Lymphocytes (%) (Auto) 32.0, Monocytes (%) (Auto) 6.5H, Eosinophils (%) (Auto) 2.5, Basophils (%) (Auto) 0.6, Neutrophils # (Auto) 5.5, Lymphocytes # (Auto) 3.0, Monocytes # (Auto) 0.6, Eosinophils # (Auto) 0.2, Basophils # (Auto) 0.1, Nucleated Red Blood Cells % (auto) 0.0, Anion Gap 4L, Glomerular Filtration Rate > 60.0, Calcium Level 9.3 CBC/BMP Laboratory Tests 03/05/20 12:04 Allergies Coded Allergies: No Known Allergies (Verified , 02/13/20) Home Medications Scheduled Amlodipine Besylate (Amlodipine Besylate) 5 Mg Tablet, 5 MG PO QHS, (Reported) Apixaban (Eliquis) 5 Mg Tablet, 5 MG PO BID for 30 Days, #60 Cholecalciferol (Vitamin D3) (Vitamin D3) 1,000 Unit Tablet, 1,000 UNITS PO DAILY, (Reported) Dorzolamide HCl/Timolol Maleat (Dorzolamide-Timolol Eye Drops) 10 Ml Drops, 1 DROP OU BID, (Reported) Losartan Potassium (Losartan Potassium) 100 Mg Tablet, 100 MG PO QHS, (Reported) Nitrofurantoin Macrocrystal (Nitrofurantoin) 50 Mg Capsule, 50 MG PO DAILY, (Reported) Oxybutynin Chloride (Oxybutynin Chloride) 5 Mg Tablet, 5 MG PO BID, (Reported) Potassium Chloride (Potassium Chloride) 10 Meq Capsule.er, 10 MEQ PO BID, (Reported) Pravastatin Sodium (Pravastatin Sodium) 20 Mg Tablet, 20 MG PO QHS, (Reported) Travoprost (Travatan Z) 0.004% 2.5ML Drops, 1 DROP OU QHS, (Reported) Scheduled PRN Diphenoxylate HCl/Atropine (Lomotil 2.5-0.025 mg Tablet) 1 Each Tablet, 1 TAB PO TID PRN for DIARRHEA, (Reported) Nystatin (Nystop) 60 Gm Powder, 0 DOSE TOP BIDP PRN for RASH for 30 Days, #60 PRANAY MC MD Mar 06, 2020 10:50
[2020-03-06 14:00] VITALS: BP 132/81
[2020-03-06 20:00] VITALS: BP 138/74
[2020-03-06] MEDS: PRAVASTATIN 20 MG TAB PO SCH (20:39)
[2020-03-06] MEDS: amLODIPine 5 MG TAB PO SCH (20:40)
[2020-03-06] MEDS: LOSARTAN 50MG TABLET PO SCH (20:40)
[2020-03-06] MEDS: ACETAMINOPHEN TAB 650MG DOSE (2X325MG) PO PRN (20:41)
[2020-03-06] MEDS: COSOPT OCUMETER PLUS 10ML (DORZOLAMIDE/TIMOLOL) OU SCH (20:41)
[2020-03-07 06:00] VITALS: BP 144/73
[2020-03-07 08:06] LABS: BASO # 0.1 10^3/uL (0.0-0.2); BASO % 0.8 % (0.0-1.0); EOS # 0.3 10^3/uL (0.0-0.5); EOS % 3.6 % (0.0-3.0); HEMATOCRIT 38.1 % (36.0-47.0); HEMOGLOBIN 11.8 g/dl (12.0-15.5); LYMPH # 3.3 10^3/uL (1.5-5.0); LYMPH % 39.6 % (24.0-44.0); MEAN CORPUSCULAR HEMOGLOBIN 31.5 pg (27.0-33.0); MEAN CORPUSCULAR VOLUME 101.6 fl (80.0-96.0); MONO # 0.6 10^3/uL (0.0-0.8); MONO % 7.2 % (0.0-5.0); NEUTROPHILS % 48.7 % (36.0-66.0); PLATELET COUNT, AUTOMATED 271 10^3/uL (150-450); RED BLOOD COUNT 3.75 10^6/uL (4.00-5.40); WHITE BLOOD COUNT 8.3 10^3/uL (4.0-10.0)
[2020-03-07 08:15] LABS: BLOOD UREA NITROGEN 6 MG/DL (7-18); CALCIUM LEVEL 8.7 MG/DL (8.8-10.2); CARBON DIOXIDE LEVEL 29 MEQ/L (21-32); CHLORIDE LEVEL 105 MEQ/L (98-107); CREATININE FOR GFR 0.52 MG/DL (0.55-1.30); GLOMERULAR FILTRATION RATE > 60.0 (>32); GLUCOSE, FASTING 107 MG/DL (70-100); POTASSIUM SERUM 4.8 MEQ/L (3.5-5.1); SODIUM LEVEL 140 MEQ/L (136-145)
[2020-03-07] MEDS: LACTOBACILLUS ACIDOPHILUS CAP (BACID) PO SCH ×4 (08:57→20:53)
[2020-03-07] MEDS: POTASSIUM CHLORIDE 10 MEQ SR TABLET PO SCH (08:57)
[2020-03-07] MEDS: APIXABAN 5 MG TAB (ELIQUIS) PO SCH ×2 (08:57→20:51)
[2020-03-07] MEDS: oxyBUTYnin 5 MG TAB PO SCH ×2 (08:57→20:52)
[2020-03-07] MEDS: VITAMIN D 1,000 INTERNATIONAL UNITS TABLET PO SCH (08:57)
[2020-03-07] MEDS: NITROFURANTOIN (MACROBID) 100 MG CAP PO SCH (08:57)
[2020-03-07] MEDS: REMEDY PHYTOPLEX Z-GUARD PASTE 113GM TUBE (FROM STOREROOM PRODUCT) TOP SCH ×3 (08:58→20:54)
--- NOTE | 2020-03-07 11:37 | IPNPDOC ---
Text Note Date of Service The patient was seen on 03/07/20. NOTE Patient seen and examined. No new overnight events. Participating in therapy. PHYSICAL EXAMINATION: GENERAL: Pleasant and cooperative. No acute distress. HEENT: PERRL. Extraocular movements intact. Clear conjunctiva CARDIOVASCULAR: Regular rate and rhythm. No murmurs, rubs, or gallops LUNGS: Clear to auscultation bilaterally. No wheezes. No rhonchi ABDOMEN: Soft, nontender, nondistended. Positive bowel sounds. Normal active bowel sounds NEUROLOGICAL: Alert and oriented times three. Cranial nerves II through XII grossly intact. Sensation grossly intact EXTREMITIES: 4+\5 strength bilateral upper extremities. 4\5 strength right lower extremity. 4/5 strength in left lower extremity. Bilateral mild pedal edema LABORATORY DATA: Reviewed MICROBIOLOGY: Final cultures have been negative Assessment and plan 84-year-old female with past medical history of nephrolithiasis status post stone basket extraction (02/29/2020), history of Escherichia coli bacteremia and UTI (12/2019) completed antibiotic treatment, multiple sclerosis, neurogenic bladder, hypertension, hyperlipidemia admitted for further evaluation of generalized weakness, fever now afebrile s/p 3d of ceftriaxone for presumed UTI though culture was negative and no other cause of fever identified also had mild hematuria for which Eliquis was initially held for a brief period of time and restarted with stable H&H and eventually discharged to the ARU and we have been consulted for medical management. 1. Generalized weakness : Hx of falls, weakness with recent ARU admission in 12/2019, with ongoing PT/OT reporting some deconditioning and currently in ARQ for rehabilitation. Other metabolic and infectious causes of generalized weakness have been ruled out. The patient got 3 days of antibiotics and all the cultures have been negative. The patient's fever has resolved. 2. Fever : Afebrile since admission, WBC wnl, no other s/s of infection . CT abd/pelvis neg for acute issue. COVID neg .. Repeat blood cultures and urine cultures negative 3. Hematuria s/p recent left ureteroscopy with basket extraction of stone; left retrograde pyelogram, left ureteral stent exchang. The patient wasn't Eliquis. At that time which was held for a brief period of time and now continued. No complaints of hematuria and hemoglobin has been stable. 4. 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 Echo as above. Continue losartan. 2 g salt restriction. BNP is chronically elevated 5. Multiple Sclerosis : Stable, currently not in flare . PT/OT 6. Neurogenic bladder: C/w home meds 7. History of right leg DVT: Continue Eliquis 5 twice a day 8. Electrolyte abnormalities. K supplementation dced as k 4.8. Monitor and supplement PRN only. Activity as per primary Disposition as per primary VS,Matae, I+O VS, Naeem, I+O Laboratory Tests 03/07/20 07:25 Vital Signs Date Time Temp Pulse Resp B/P (MAP) Pulse Ox O2 Delivery O2 Flow Rate FiO2 03/07/20 06:00 97.3 73 18 144/73 (96) 99 Room Air I&O- Last 24 Hours up to 6 AM 03/07/20 06:00 Intake Total 740 ml Output Total 0 ml Balance 740 ml PRANAY MC MD Mar 07, 2020 11:37
[2020-03-07 14:00] VITALS: BP 115/70
[2020-03-07] MEDS: ACETAMINOPHEN TAB 650MG DOSE (2X325MG) PO PRN (17:17)
[2020-03-07 20:15] VITALS: BP 127/63
[2020-03-07] MEDS: PRAVASTATIN 20 MG TAB PO SCH (20:51)
[2020-03-07] MEDS: amLODIPine 5 MG TAB PO SCH (20:52)
[2020-03-07] MEDS: LOSARTAN 50MG TABLET PO SCH (20:52)
[2020-03-07] MEDS: COSOPT OCUMETER PLUS 10ML (DORZOLAMIDE/TIMOLOL) OU SCH (20:53)
[2020-03-08 06:07] VITALS: BP 151/82
[2020-03-08] MEDS: LACTOBACILLUS ACIDOPHILUS CAP (BACID) PO SCH ×4 (09:10→20:25)
[2020-03-08] MEDS: VITAMIN D 1,000 INTERNATIONAL UNITS TABLET PO SCH (09:10)
[2020-03-08] MEDS: oxyBUTYnin 5 MG TAB PO SCH ×2 (09:10→20:26)
[2020-03-08] MEDS: NITROFURANTOIN (MACROBID) 100 MG CAP PO SCH (09:10)
[2020-03-08] MEDS: APIXABAN 5 MG TAB (ELIQUIS) PO SCH ×2 (09:10→20:26)
[2020-03-08] MEDS: REMEDY PHYTOPLEX Z-GUARD PASTE 113GM TUBE (FROM STOREROOM PRODUCT) TOP SCH ×3 (09:11→20:27)
[2020-03-08] MEDS: ACETAMINOPHEN TAB 650MG DOSE (2X325MG) PO PRN (09:12)
--- NOTE | 2020-03-08 13:16 | IPNPDOC ---
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 REVIEW OF SYSTEMS: The following is a completed review of systems and has been reviewed. Review of systems otherwise unremarkable. PAIN: Patient self reports no pain EYES: No recent vision changes EARS, NOSE, & THROAT: No throat pain, or dysphagia, or rhinorrhea CARDIOVASCULAR: Denies chest pain or palpitations PULMONARY: Denies shortness of breath GASTROINTESTINAL: +loose stools (improving) GENITOURINARY: denies dysuria, +intermittent hematuria MUSCULOSKELETAL: generalized weakness NEUROLOGICAL:+MS HEMATOLOGICAL: denies easy bruising SKIN: intact PSYCHIATRIC: Unremarkable All other review of systems found to be negative. PHYSICAL EXAMINATION: VITAL SIGNS: Please see below. GENERAL: Pleasant and cooperative. No acute distress. HEENT: PERRL. Extraocular movements intact. Clear conjunctiva CARDIOVASCULAR: Regular rate and rhythm. No murmurs, rubs, or gallops LUNGS: Clear to auscultation bilaterally. No wheezes. No rhonchi ABDOMEN: Soft, nontender, nondistended. Positive bowel sounds. Normal active bowel sounds NEUROLOGICAL: Alert and oriented times three. Cranial nerves II through XII grossly intact. Sensation grossly intact EXTREMITIES: 4+\5 strength bilateral upper extremities. 4\5 strength right lower extremity. 4/5 strength in left lower extremity. +bilat LE edema SKIN: intact ASSESSMENT:84-year-old F with past medical history of MS who presents status post sepsis in setting of UTI with worsening mobility due to MS PLAN: 1. Rehab- PT/OT advance mobility and ADLs, strengthen/stretch/maintain ROM of all limbs 2. Neuro- hx of MS with worsening function due to sepsis in setting of recurrent UTI- patient currently on prophylactic antibiotics 3. CV- hx of HTN c/u amlopidine and cozaar, medicine consulted to assist in overall management- -HLD c/u statin - grdae 1 diastolic CHF with mild bilat LE, c/u fluid restrict 1800cc, and add daily weights 4. Resp- monitor for infection 5. Vasc- hx of RLE DVT, c/u appropriate dose of eliquis 5mb BID and monitor for hematuria or blood loss 6. - neurogenic bladder, c/u Ditropan, monitor PVRs -s/p course of ceftriaxone for UTI, c/u macrobid 100mg daily for suppression- per med rec it appears she was on Macrodantin at home, but patient reports she did not take any prophylactic abx -intermittent hematuria, c/u to monitor H/H while on lower dose of eliquis, clinically stable at this time 7. Pain- tylneol prn 8. GI ppx- will hold off on this since patient to be on long-term antibiotic for recurrent UTI to avoid C diff infection, will monitor HH and if suspect GI bleed will start -patient reporting loose stools improving and likely due to abx 9. DIspo- TBD Allergies Coded Allergies: No Known Allergies (Verified , 02/13/20) Vital Signs Vital Signs Date Time Temp Pulse Resp B/P (MAP) Pulse Ox O2 Delivery O2 Flow Rate FiO2 03/08/20 06:07 97.9 85 18 151/82 (105) 96 Room Air Current Medications Current Medications Current Medications Medications (Trade) Dose Ordered Sig/Lorene Route PRN Reason Start Time Stop Time Status Last Admin Dose Admin Acetaminophen (Tylenol Tab) 650 mg Q4HP PRN PO MILD PAIN (PS 1-4)/fever 03/04/20 17:00 03/08/20 09:12 Amlodipine Besylate (Norvasc) 5 mg QHS PO 03/04/20 21:00 03/07/20 20:52 Apixaban (Eliquis) 5 mg BID PO 03/04/20 21:00 03/08/20 09:10 Bisacodyl (Dulcolax Tab) 5 mg DAILYPRN PRN PO CONSTIPATION 03/04/20 14:30 Dorzolamide/ Timolol (Cosopt Ocumeter Plus) 1 drop QHS OU 03/04/20 21:00 03/07/20 20:53 Lactobacillus Acidophilus (Bacid) 1 ea WMHS PO 03/04/20 18:00 03/08/20 12:09 Losartan Potassium (Cozaar) 100 mg QHS PO 03/04/20 21:00 03/07/20 20:52 Nitrofurantoin Monoh/Nitrofur Macro (Macrobid) 50 mg DAILY PO 03/04/20 09:00 03/04/20 18:39 DC Nitrofurantoin Monoh/Nitrofur Macro (Macrobid) 100 mg DAILY PO 03/04/20 09:00 03/08/20 09:10 Nystatin (Mycostatin Powder, Nystop) 1 dose BIDP PRN TOP RASH 03/04/20 21:00 03/08/20 11:00 Oxybutynin Chloride (Ditropan) 5 mg BID PO 03/04/20 21:00 03/08/20 09:10 Potassium Chloride (Micro-K Extencaps) 10 meq BID PO 03/04/20 21:00 03/07/20 11:33 DC 03/07/20 08:57 Pravastatin Sodium (Pravachol) 20 mg QHS PO 03/04/20 21:00 03/07/20 20:51 Vitamin D (Vitamin D) 1,000 units DAILY PO 03/05/20 09:00 03/08/20 09:10 NAYELI MALONE MD Mar 08, 2020 13:16
[2020-03-08 14:00] VITALS: BP 100/60
[2020-03-08 20:15] VITALS: BP 134/75
[2020-03-08] MEDS: amLODIPine 5 MG TAB PO SCH (20:25)
[2020-03-08] MEDS: LOSARTAN 50MG TABLET PO SCH (20:26)
[2020-03-08] MEDS: PRAVASTATIN 20 MG TAB PO SCH (20:26)
[2020-03-08] MEDS: COSOPT OCUMETER PLUS 10ML (DORZOLAMIDE/TIMOLOL) OU SCH (20:27)
[2020-03-09 06:00] VITALS: BP 126/67
[2020-03-09] MEDS: REMEDY PHYTOPLEX Z-GUARD PASTE 113GM TUBE (FROM STOREROOM PRODUCT) TOP SCH ×3 (09:00→20:48)
[2020-03-09] MEDS: oxyBUTYnin 5 MG TAB PO SCH ×2 (09:04→20:47)
[2020-03-09] MEDS: APIXABAN 5 MG TAB (ELIQUIS) PO SCH ×2 (09:04→20:48)
[2020-03-09] MEDS: LACTOBACILLUS ACIDOPHILUS CAP (BACID) PO SCH ×4 (09:04→20:48)
[2020-03-09] MEDS: VITAMIN D 1,000 INTERNATIONAL UNITS TABLET PO SCH (09:04)
[2020-03-09] MEDS: NITROFURANTOIN (MACROBID) 100 MG CAP PO SCH (09:05)
[2020-03-09 14:00] VITALS: BP 131/62
[2020-03-09 20:00] VITALS: BP 132/70
[2020-03-09] MEDS: PRAVASTATIN 20 MG TAB PO SCH (20:47)
[2020-03-09] MEDS: amLODIPine 5 MG TAB PO SCH (20:47)
[2020-03-09] MEDS: LOSARTAN 50MG TABLET PO SCH (20:48)
[2020-03-09] MEDS: COSOPT OCUMETER PLUS 10ML (DORZOLAMIDE/TIMOLOL) OU SCH (20:48)
[2020-03-10 06:03] VITALS: BP 142/70
[2020-03-10 08:08] LABS: BASO # 0.1 10^3/uL (0.0-0.2); BASO % 0.9 % (0.0-1.0); EOS # 0.3 10^3/uL (0.0-0.5); HEMATOCRIT 37.6 % (36.0-47.0); HEMOGLOBIN 11.8 g/dl (12.0-15.5); LYMPH # 3.6 10^3/uL (1.5-5.0); LYMPH % 39.8 % (24.0-44.0); MEAN CORPUSCULAR HEMOGLOBIN 31.6 pg (27.0-33.0); MEAN CORPUSCULAR HGB CONC 31.4 g/dl (32.0-36.5); MEAN CORPUSCULAR VOLUME 100.5 fl (80.0-96.0); MONO # 0.6 10^3/uL (0.0-0.8); MONO % 6.5 % (0.0-5.0); NEUTROPHILS # 4.5 10^3/uL (1.5-8.5); NEUTROPHILS % 49.6 % (36.0-66.0); PLATELET COUNT, AUTOMATED 278 10^3/uL (150-450); RED BLOOD COUNT 3.74 10^6/uL (4.00-5.40)
[2020-03-10 08:29] LABS: BLOOD UREA NITROGEN 11 MG/DL (7-18); CALCIUM LEVEL 8.9 MG/DL (8.8-10.2); CARBON DIOXIDE LEVEL 25 MEQ/L (21-32); CHLORIDE LEVEL 106 MEQ/L (98-107); CREATININE FOR GFR 0.71 MG/DL (0.55-1.30); GLOMERULAR FILTRATION RATE > 60.0 (>32); GLUCOSE, FASTING 135 MG/DL (70-100); POTASSIUM SERUM 4.3 MEQ/L (3.5-5.1); SODIUM LEVEL 139 MEQ/L (136-145)
[2020-03-10] MEDS: oxyBUTYnin 5 MG TAB PO SCH ×2 (08:36→20:26)
[2020-03-10] MEDS: NITROFURANTOIN (MACROBID) 100 MG CAP PO SCH (08:36)
[2020-03-10] MEDS: APIXABAN 5 MG TAB (ELIQUIS) PO SCH ×2 (08:36→20:28)
[2020-03-10] MEDS: LACTOBACILLUS ACIDOPHILUS CAP (BACID) PO SCH ×4 (08:36→20:26)
[2020-03-10] MEDS: VITAMIN D 1,000 INTERNATIONAL UNITS TABLET PO SCH (08:36)
[2020-03-10] MEDS: REMEDY PHYTOPLEX Z-GUARD PASTE 113GM TUBE (FROM STOREROOM PRODUCT) TOP SCH ×3 (08:36→20:27)
--- NOTE | 2020-03-10 13:08 | IPNPDOC ---
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 REVIEW OF SYSTEMS: The following is a completed review of systems and has been reviewed. Review of systems otherwise unremarkable. PAIN: Patient self reports no pain EYES: No recent vision changes EARS, NOSE, & THROAT: No throat pain, or dysphagia, or rhinorrhea CARDIOVASCULAR: Denies chest pain or palpitations PULMONARY: Denies shortness of breath GASTROINTESTINAL: +loose stools (improving) GENITOURINARY: denies dysuria, +intermittent hematuria MUSCULOSKELETAL: generalized weakness NEUROLOGICAL:+MS HEMATOLOGICAL: denies easy bruising SKIN: intact PSYCHIATRIC: Unremarkable All other review of systems found to be negative. PHYSICAL EXAMINATION: VITAL SIGNS: Please see below. GENERAL: Pleasant and cooperative. No acute distress. HEENT: PERRL. Extraocular movements intact. Clear conjunctiva CARDIOVASCULAR: Regular rate and rhythm. No murmurs, rubs, or gallops LUNGS: Clear to auscultation bilaterally. No wheezes. No rhonchi ABDOMEN: Soft, nontender, nondistended. Positive bowel sounds. Normal active bowel sounds NEUROLOGICAL: Alert and oriented times three. Cranial nerves II through XII grossly intact. Sensation grossly intact EXTREMITIES: 4+\5 strength bilateral upper extremities. 4\5 strength right lower extremity. 4/5 strength in left lower extremity. +bilat LE edema SKIN: intact ASSESSMENT:84-year-old F with past medical history of MS who presents status post sepsis in setting of UTI with worsening mobility due to MS PLAN: 1. Rehab- PT/OT advance mobility and ADLs, strengthen/stretch/maintain ROM of all limbs 2. Neuro- hx of MS with worsening function due to sepsis in setting of recurrent UTI- patient currently on prophylactic antibiotics 3. CV- hx of HTN c/u amlopidine and cozaar, medicine consulted to assist in ove rall management- -HLD c/u statin - grade 1 diastolic CHF with mild bilat LE, c/u fluid restrict 1800cc, and add daily weights 4. Resp- monitor for infection 5. Vasc- hx of RLE DVT, c/u appropriate dose of eliquis 5mb BID and monitor for hematuria or blood loss 6. - neurogenic bladder, c/u Ditropan, monitor PVRs -s/p course of ceftriaxone for UTI, c/u macrobid 100mg daily for suppression- per med rec it appears she was on Macrodantin at home, but patient reports she did not take any prophylactic abx -intermittent hematuria, c/u to monitor H/H while on lower dose of eliquis, clinically stable at this time 7. Pain- tylneol prn 8. GI ppx- will hold off on this since patient to be on long-term antibiotic for recurrent UTI to avoid C diff infection, will monitor HH and if suspect GI bleed will start -patient reporting loose stools improving and likely due to abx 9. DIspo- TBD Allergies Coded Allergies: No Known Allergies (Verified , 02/13/20) Vital Signs Vital Signs Date Time Temp Pulse Resp B/P (MAP) Pulse Ox O2 Delivery O2 Flow Rate FiO2 03/10/20 06:03 97.6 87 18 142/70 (94) 100 Room Air Laboratory Data CBC/BMP Laboratory Tests 03/10/20 07:25 Labs 24H Laboratory Tests 2 03/10/20 07:25: Immature Granulocyte % (Auto) 0.2, Neutrophils (%) (Auto) 49.6, Lymphocytes (%) (Auto) 39.8, Monocytes (%) (Auto) 6.5H, Eosinophils (%) (Auto) 3.0, Basophils (%) (Auto) 0.9, Neutrophils # (Auto) 4.5, Lymphocytes # (Auto) 3.6, Monocytes # (Auto) 0.6, Eosinophils # (Auto) 0.3, Basophils # (Auto) 0.1, Nucleated Red Blood Cells % (auto) 0.0, Anion Gap 8, Glomerular Filtration Rate > 60.0, Calcium Level 8.9 Current Medications Current Medications Current Medications Medications (Trade) Dose Ordered Sig/Lorene Route PRN Reason Start Time Stop Time Status Last Admin Dose Admin Acetaminophen (Tylenol Tab) 650 mg Q4HP PRN PO MILD PAIN (PS 1-4)/fever 03/04/20 17:00 03/08/20 09:12 Amlodipine Besylate (Norvasc) 5 mg QHS PO 03/04/20 21:00 03/09/20 20:47 Apixaban (Eliquis) 5 mg BID PO 03/04/20 21:00 03/10/20 08:36 Bisacodyl (Dulcolax Tab) 5 mg DAILYPRN PRN PO CONSTIPATION 03/04/20 14:30 Dorzolamide/ Timolol (Cosopt Ocumeter Plus) 1 drop QHS OU 03/04/20 21:00 03/09/20 20:48 Lactobacillus Acidophilus (Bacid) 1 ea WMHS PO 03/04/20 18:00 03/10/20 08:36 Losartan Potassium (Cozaar) 100 mg QHS PO 03/04/20 21:00 03/09/20 20:48 Nitrofurantoin Monoh/Nitrofur Macro (Macrobid) 50 mg DAILY PO 03/04/20 09:00 03/04/20 18:39 DC Nitrofurantoin Monoh/Nitrofur Macro (Macrobid) 100 mg DAILY PO 03/04/20 09:00 03/10/20 08:36 Nystatin (Mycostatin Powder, Nystop) 1 dose BIDP PRN TOP RASH 03/04/20 21:00 03/08/20 11:00 Oxybutynin Chloride (Ditropan) 5 mg BID PO 03/04/20 21:00 03/10/20 08:36 Potassium Chloride (Micro-K Extencaps) 10 meq BID PO 03/04/20 21:00 03/07/20 11:33 DC 03/07/20 08:57 Pravastatin Sodium (Pravachol) 20 mg QHS PO 03/04/20 21:00 03/09/20 20:47 Vitamin D (Vitamin D) 1,000 units DAILY PO 03/05/20 09:00 03/10/20 08:36 NAYELI MALONE MD Mar 10, 2020 13:08
[2020-03-10 14:00] VITALS: BP 134/60
[2020-03-10 20:00] VITALS: BP 146/63
[2020-03-10] MEDS: LOSARTAN 50MG TABLET PO SCH (20:26)
[2020-03-10] MEDS: amLODIPine 5 MG TAB PO SCH (20:26)
[2020-03-10] MEDS: PRAVASTATIN 20 MG TAB PO SCH (20:26)
[2020-03-10] MEDS: ACETAMINOPHEN TAB 650MG DOSE (2X325MG) PO PRN (20:27)
[2020-03-10] MEDS: COSOPT OCUMETER PLUS 10ML (DORZOLAMIDE/TIMOLOL) OU SCH (20:27)
[2020-03-11 06:05] VITALS: BP 132/65
[2020-03-11 07:50] LABS: MEAN CORPUSCULAR HEMOGLOBIN 31.1 pg (27.0-33.0); MEAN CORPUSCULAR HGB CONC 30.8 g/dl (32.0-36.5); PLATELET COUNT, AUTOMATED 304 10^3/uL (150-450); RED BLOOD COUNT 3.86 10^6/uL (4.00-5.40); WHITE BLOOD COUNT 8.4 10^3/uL (4.0-10.0)
[2020-03-11 08:12] LABS: BLOOD UREA NITROGEN 10 MG/DL (7-18); CARBON DIOXIDE LEVEL 27 MEQ/L (21-32); CHLORIDE LEVEL 107 MEQ/L (98-107); CREATININE FOR GFR 0.55 MG/DL (0.55-1.30); GLOMERULAR FILTRATION RATE > 60.0 (>32); GLUCOSE, FASTING 113 MG/DL (70-100); POTASSIUM SERUM 4.1 MEQ/L (3.5-5.1); SODIUM LEVEL 139 MEQ/L (136-145)
[2020-03-11] MEDS: NITROFURANTOIN (MACROBID) 100 MG CAP PO SCH (08:38)
[2020-03-11] MEDS: APIXABAN 5 MG TAB (ELIQUIS) PO SCH ×2 (08:38→21:14)
[2020-03-11] MEDS: VITAMIN D 1,000 INTERNATIONAL UNITS TABLET PO SCH (08:38)
[2020-03-11] MEDS: LACTOBACILLUS ACIDOPHILUS CAP (BACID) PO SCH ×4 (08:38→21:14)
[2020-03-11] MEDS: oxyBUTYnin 5 MG TAB PO SCH ×2 (08:39→21:14)
[2020-03-11] MEDS: REMEDY PHYTOPLEX Z-GUARD PASTE 113GM TUBE (FROM STOREROOM PRODUCT) TOP SCH ×3 (08:39→21:00)
--- NOTE | 2020-03-11 13:00 | IPNPDOC ---
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 She feels ready to go home and believes she has help. REVIEW OF SYSTEMS: The following is a completed review of systems and has been reviewed. Review of systems otherwise unremarkable. PAIN: Patient self reports no pain EYES: No recent vision changes EARS, NOSE, & THROAT: No throat pain, or dysphagia, or rhinorrhea CARDIOVASCULAR: Denies chest pain or palpitations PULMONARY: Denies shortness of breath GASTROINTESTINAL: +loose stools (improving) GENITOURINARY: denies dysuria, +intermittent hematuria MUSCULOSKELETAL: generalized weakness NEUROLOGICAL:+MS HEMATOLOGICAL: denies easy bruising SKIN: intact PSYCHIATRIC: Unremarkable All other review of systems found to be negative. PHYSICAL EXAMINATION: VITAL SIGNS: Please see below. GENERAL: Pleasant and cooperative. No acute distress. HEENT: PERRL. Extraocular movements intact. Clear conjunctiva CARDIOVASCULAR: Regular rate and rhythm. No murmurs, rubs, or gallops LUNGS: Clear to auscultation bilaterally. No wheezes. No rhonchi ABDOMEN: Soft, nontender, nondistended. Positive bowel sounds. Normal active bowel sounds NEUROLOGICAL: Alert and oriented times three. Cranial nerves II through XII grossly intact. Sensation grossly intact EXTREMITIES: 4+\5 strength bilateral upper extremities. 4\5 strength right lower extremity. 4/5 strength in left lower extremity. +bilat LE edema SKIN: intact ASSESSMENT:84-year-old F with past medical history of MS who presents status post sepsis in setting of UTI with worsening mobility due to MS PLAN: 1. Rehab- PT/OT advance mobility and ADLs, strengthen/stretch/maintain ROM of al l limbs 2. Neuro- hx of MS with worsening function due to sepsis in setting of recurrent UTI- patient currently on prophylactic antibiotics 3. CV- hx of HTN c/u amlopidine and cozaar, medicine consulted to assist in overall management- -HLD c/u statin - grade 1 diastolic CHF with mild bilat LE, c/u fluid restrict 1800cc, and add daily weights 4. Resp- monitor for infection 5. Vasc- hx of RLE DVT, c/u appropriate dose of eliquis 5mb BID and monitor for hematuria or blood loss 6. - neurogenic bladder, c/u Ditropan, monitor PVRs -s/p course of ceftriaxone for UTI, c/u macrobid 100mg daily for suppression- per med rec it appears she was on Macrodantin at home, but patient reports she did not take any prophylactic abx -intermittent hematuria, c/u to monitor H/H while on lower dose of eliquis, clinically stable at this time 7. Pain- tylneol prn 8. GI ppx- will hold off on this since patient to be on long-term antibiotic for recurrent UTI to avoid C diff infection, will monitor HH and if suspect GI bleed will start -patient reporting loose stools improving and likely due to abx-resovled 9. DIspo- TBD Allergies Coded Allergies: No Known Allergies (Verified , 02/13/20) Vital Signs Vital Signs Date Time Temp Pulse Resp B/P (MAP) Pulse Ox O2 Delivery O2 Flow Rate FiO2 03/11/20 06:05 97.5 72 18 132/65 (87) 98 Room Air Laboratory Data CBC/BMP Laboratory Tests 03/11/20 07:23 Labs 24H Laboratory Tests 2 03/11/20 07:23: Nucleated Red Blood Cells % (auto) 0.0, Anion Gap 5L, Glomerular Filtration Rate > 60.0, Calcium Level 9.0 Current Medications Current Medications Current Medications Medications (Trade) Dose Ordered Sig/Lorene Route PRN Reason Start Time Stop Time Status Last Admin Dose Admin Acetaminophen (Tylenol Tab) 650 mg Q4HP PRN PO MILD PAIN (PS 1-4)/fever 03/04/20 17:00 03/10/20 20:27 Amlodipine Besylate (Norvasc) 5 mg QHS PO 03/04/20 21:00 03/10/20 20:26 Apixaban (Eliquis) 5 mg BID PO 03/04/20 21:00 03/11/20 08:38 Bisacodyl (Dulcolax Tab) 5 mg DAILYPRN PRN PO CONSTIPATION 03/04/20 14:30 Dorzolamide/ Timolol (Cosopt Ocumeter Plus) 1 drop QHS OU 03/04/20 21:00 03/10/20 20:27 Lactobacillus Acidophilus (Bacid) 1 ea WMHS PO 03/04/20 18:00 03/11/20 12:31 Losartan Potassium (Cozaar) 100 mg QHS PO 03/04/20 21:00 03/10/20 20:26 Nitrofurantoin Monoh/Nitrofur Macro (Macrobid) 50 mg DAILY PO 03/04/20 09:00 03/04/20 18:39 DC Nitrofurantoin Monoh/Nitrofur Macro (Macrobid) 100 mg DAILY PO 03/04/20 09:00 03/11/20 08:38 Nystatin (Mycostatin Powder, Nystop) 1 dose BIDP PRN TOP RASH 03/04/20 21:00 03/08/20 11:00 Oxybutynin Chloride (Ditropan) 5 mg BID PO 03/04/20 21:00 03/11/20 08:39 Potassium Chloride (Micro-K Extencaps) 10 meq BID PO 03/04/20 21:00 03/07/20 11:33 DC 03/07/20 08:57 Pravastatin Sodium (Pravachol) 20 mg QHS PO 03/04/20 21:00 03/10/20 20:26 Vitamin D (Vitamin D) 1,000 units DAILY PO 03/05/20 09:00 03/11/20 08:38 NAYELI MALONE MD Mar 11, 2020 13:00
[2020-03-11 14:00] VITALS: BP 128/58
[2020-03-11 20:00] VITALS: BP 130/63
[2020-03-11 21:14] VITALS: BP 130/63
[2020-03-11] MEDS: amLODIPine 5 MG TAB PO SCH (21:14)
[2020-03-11] MEDS: PRAVASTATIN 20 MG TAB PO SCH (21:14)
[2020-03-11] MEDS: COSOPT OCUMETER PLUS 10ML (DORZOLAMIDE/TIMOLOL) OU SCH (21:15)
[2020-03-11] MEDS: LOSARTAN 50MG TABLET PO SCH (21:15)
[2020-03-11] MEDS: ACETAMINOPHEN TAB 650MG DOSE (2X325MG) PO PRN (21:15)
[2020-03-12 06:00] VITALS: BP 149/79
[2020-03-12 06:56] LABS: BASO # 0.1 10^3/uL (0.0-0.2); BASO % 0.9 % (0.0-1.0); EOS # 0.3 10^3/uL (0.0-0.5); EOS % 3.7 % (0.0-3.0); HEMOGLOBIN 11.4 g/dl (12.0-15.5); LYMPH # 3.5 10^3/uL (1.5-5.0); LYMPH % 39.8 % (24.0-44.0); MEAN CORPUSCULAR HEMOGLOBIN 30.4 pg (27.0-33.0); MEAN CORPUSCULAR VOLUME 101.3 fl (80.0-96.0); MONO # 0.7 10^3/uL (0.0-0.8); MONO % 7.5 % (0.0-5.0); NEUTROPHILS # 4.2 10^3/uL (1.5-8.5); NEUTROPHILS % 47.8 % (36.0-66.0); PLATELET COUNT, AUTOMATED 266 10^3/uL (150-450); RED BLOOD COUNT 3.75 10^6/uL (4.00-5.40); WHITE BLOOD COUNT 8.8 10^3/uL (4.0-10.0)
[2020-03-12 07:22] LABS: BLOOD UREA NITROGEN 11 MG/DL (7-18); CARBON DIOXIDE LEVEL 26 MEQ/L (21-32); CHLORIDE LEVEL 107 MEQ/L (98-107); CREATININE FOR GFR 0.64 MG/DL (0.55-1.30); GLOMERULAR FILTRATION RATE > 60.0 (>32); GLUCOSE, FASTING 102 MG/DL (70-100); POTASSIUM SERUM 4.2 MEQ/L (3.5-5.1); SODIUM LEVEL 139 MEQ/L (136-145)
[2020-03-12] MEDS: NITROFURANTOIN (MACROBID) 100 MG CAP PO SCH (08:59)
[2020-03-12] MEDS: REMEDY PHYTOPLEX Z-GUARD PASTE 113GM TUBE (FROM STOREROOM PRODUCT) TOP SCH (08:59)
[2020-03-12] MEDS: VITAMIN D 1,000 INTERNATIONAL UNITS TABLET PO SCH (08:59)
[2020-03-12] MEDS: LACTOBACILLUS ACIDOPHILUS CAP (BACID) PO SCH ×2 (08:59→13:12)
[2020-03-12] MEDS: APIXABAN 5 MG TAB (ELIQUIS) PO SCH (08:59)
[2020-03-12] MEDS: oxyBUTYnin 5 MG TAB PO SCH (08:59)
[2020-03-12] MEDS ORDERED: LOSA100T50 PO (11:09)
[2020-03-12] MEDS ORDERED: D31000TA2 PO (11:09)
[2020-03-12] MEDS ORDERED: NITR100C2 PO (11:09)
[2020-03-12] MEDS ORDERED: AMLO1TAB24 PO (11:09)
[2020-03-12] MEDS ORDERED: PRAV20TA2 PO (11:09)
[2020-03-12] MEDS ORDERED: OXYB5TAB10 PO (11:09)
[2020-03-12] MEDS ORDERED: RISATAB3 PO (11:09)
[2020-03-12] MEDS ORDERED: POTA10CA32 PO (11:09)
[2020-03-12] MEDS ORDERED: ELIQ5TAB PO (11:09)
== END 2020-03-12 13:15 | disposition home health service (06) | DRG 59 ==
LOC: M PM&R 16:20 → UNDODISIN 16:30
PROVIDERS: ADMIT Physical Medicine & Rehabilitation; ATTEND Physical Medicine & Rehabilitation
DX: G35 Multiple sclerosis (principal); I50.32 Chronic diastolic (congestive) heart failure; I11.0 Hypertensive heart disease with heart failure; E78.5 Hyperlipidemia, unspecified; N31.9 Neuromuscular dysfunction of bladder, unspecified; R53.1 Weakness; R31.9 Hematuria, unspecified; Z74.09 Other reduced mobility; Z85.3 Personal history of malignant neoplasm of breast; Z90.11 Acquired absence of right breast and nipple; Z90.49 Acquired absence of other specified parts of digestive tract; Z86.718 Personal history of other venous thrombosis and embolism; Z79.01 Long term (current) use of anticoagulants; Z79.899 Other long term (current) drug therapy; Z92.21 Personal history of antineoplastic chemotherapy; Z92.3 Personal history of irradiation; Z87.442 Personal history of urinary calculi

== ENCOUNTER → 2020-04-08 | Outpatient (REF) | payer MEDICARE, OTHER ==
[~2020-04-08] MED LIST changes: +GABA-282 PO; -GABA-843 PO; +NITR100C2 PO; -NITROFURANTOIN (MACROBID) 100 MG CAP PO SCH; +NYST10006 TOP; +RISATAB3 PO
[2020-04-08 13:53] LABS: HEMATOCRIT 40.1 % (36.0-47.0); HEMOGLOBIN 12.4 g/dl (12.0-15.5); MEAN CORPUSCULAR HGB CONC 30.9 g/dl (32.0-36.5); MEAN CORPUSCULAR VOLUME 100.3 fl (80.0-96.0); PLATELET COUNT, AUTOMATED 279 10^3/uL (150-450); WHITE BLOOD COUNT 5.5 10^3/uL (4.0-10.0)
[2020-04-08 16:19] LABS: ALBUMIN 3.3 GM/DL (3.2-5.2); ALT/SGPT 17 U/L (12-78); BLOOD UREA NITROGEN 7 MG/DL (7-18); CALCIUM LEVEL 9.5 MG/DL (8.8-10.2); CARBON DIOXIDE LEVEL 27 MEQ/L (21-32); CHLORIDE LEVEL 105 MEQ/L (98-107); CREATININE FOR GFR 0.66 MG/DL (0.55-1.30); GLOMERULAR FILTRATION RATE > 60.0 (>32); GLUCOSE, FASTING 123 MG/DL (70-100); POTASSIUM SERUM 4.2 MEQ/L (3.5-5.1); SODIUM LEVEL 139 MEQ/L (136-145); TOTAL PROTEIN 6.7 GM/DL (6.4-8.2)
== END ==
LOC: M SHH 13:43
PROVIDERS: ATTEND Internal Medicine
DX: I10 Essential (primary) hypertension (principal); N20.0 Calculus of kidney; I25.10 Atherosclerotic heart disease of native coronary artery without angina pectoris

== ENCOUNTER → 2020-04-10 | Outpatient (CLI) | payer MEDICARE, OTHER ==
--- NOTE | 2020-04-10 15:24 | REP ---
INDICATION: LEFT URETERAL STONE. COMPARISON: None. TECHNIQUE: Real-time sonographic evaluation of the kidneys is performed. FINDINGS: Renal cortical echogenicity pattern is normal bilaterally and contours are smooth. There is no hydronephrosis bilaterally. There is a simple cyst in the mid left kidney 1.8 x 1.8 x 2.1 cm. The right kidney measures 10.1 x 5.9 x 4.8 cm. Left renal dimensions are 9.7 x 5.1 x 7.4 cm. The urinary bladder is unremarkable. Ureteral jets could not be visualized in the bladder with Doppler color evaluation. IMPRESSION: No hydronephrosis. Left renal cyst. <Electronically signed by Landon Mchugh > 04/10/20 [id number]
== END ==
LOC: M RAD 12:55
PROVIDERS: ATTEND Urology
DX: N20.1 Calculus of ureter (principal); N28.1 Cyst of kidney, acquired

== ENCOUNTER 2020-04-29 12:43 | Inpatient (IN) | payer MEDICARE, OTHER ==
[~2020-04-29] VITALS: Ht 147.3 cm; Wt 68.0 kg
[~2020-04-29 12:43] MED LIST changes: +ASPI-281 PO; -ASPI81CH17 PO
[2020-04-29] MEDS ORDERED: ACETAMINOPHEN 325 MG TAB PO ONE (13:15)
[2020-04-29] MEDS ORDERED: NS 1,000 ML IV ONE (13:30)
[2020-04-29 13:34] LABS: BASO % 0.1 % (0.0-1.0); HEMATOCRIT 38.3 % (36.0-47.0); HEMOGLOBIN 12.3 g/dl (12.0-15.5); LYMPH # 1.4 10^3/uL (1.5-5.0); LYMPH % 10.1 % (24.0-44.0); MEAN CORPUSCULAR HEMOGLOBIN 30.2 pg (27.0-33.0); MEAN CORPUSCULAR HGB CONC 32.1 g/dl (32.0-36.5); MEAN CORPUSCULAR VOLUME 94.1 fl (80.0-96.0); MONO # 0.3 10^3/uL (0.0-0.8); MONO % 1.9 % (0.0-5.0); NEUTROPHILS # 12.2 10^3/uL (1.5-8.5); NEUTROPHILS % 87.4 % (36.0-66.0); PLATELET COUNT, AUTOMATED 203 10^3/uL (150-450); RED BLOOD COUNT 4.07 10^6/uL (4.00-5.40)
--- NOTE | 2020-04-29 13:40 | REP ---
INDICATION: Coronavirus workup. COMPARISON: Comparison chest x-ray March 01, 2020. TECHNIQUE: Portable upright AP chest radiograph. FINDINGS: There are new patchy infiltrates bilaterally upper lobe perihilar region left a little more extensive than right. These are consistent with viral pneumonia. Right hemidiaphragm remains elevated and an air-filled loop of right colon is seen beneath it. Cardiomegaly is again observed. There are degenerative changes in the thoracic spine and aorta.. IMPRESSION: New patchy bilateral perihilar infiltrates consistent with viral pneumonia. Elevated right hemidiaphragm. Cardiomegaly.. <Electronically signed by Russel Das > 04/29/20 [id number]
[2020-04-29 13:45] LABS: INR 1.14; PROTHROMBIN TIME 14.9 SECONDS (12.5-14.3)
[2020-04-29 13:46] LABS: PARTIAL THROMBOPLASTIN TIME 62.9 SECONDS (24.2-38.5)
[2020-04-29 13:48] LABS: D-DIMER QUANT 1046.85 ng/ml (<500)
[2020-04-29 14:14] LABS: ALBUMIN 2.7 GM/DL (3.2-5.2); ALT/SGPT 17 U/L (12-78); BILIRUBIN,TOTAL 0.9 MG/DL (0.2-1.0); BLOOD UREA NITROGEN 28 MG/DL (7-18); CALCIUM LEVEL 9.2 MG/DL (8.8-10.2); CARBON DIOXIDE LEVEL 30 MEQ/L (21-32); CHLORIDE LEVEL 100 MEQ/L (98-107); CK-MB VALUE MASS < 1.0 NG/ML (<3.6); CPK CREATINE PHOSPHOKINASE 63 U/L (26-192); CREATININE FOR GFR 0.99 MG/DL (0.55-1.30); FERRITIN 603 NG/ML (8-252); GLOMERULAR FILTRATION RATE 56.9 (>32); GLUCOSE, FASTING 119 MG/DL (70-100); LDH LACTATE DEHYDROGENASE 236 U/L (84-246); MAGNESIUM LEVEL 1.7 MG/DL (1.8-2.4); MB/CK RELATIVE INDEX 1.59 (< OR =4); POTASSIUM SERUM 3.7 MEQ/L (3.5-5.1); SODIUM LEVEL 135 MEQ/L (136-145); TOTAL PROTEIN 6.4 GM/DL (6.4-8.2); TROPONIN I 0.02 NG/ML (< 0.10)
--- OUTSIDE RECORDS SUMMARY | 2020-04-29 14:48 | CCD ---
Author Author [facility] Organization [facility] Address Unknown Phone Unavailable Care Team Providers Care Med Surg Rn Name Role Phone Eb Beyer Unavailable PROBLEMS Type Condition ICD9-CM Code [id number] Code Onset Dates Condition S tatus SNOMED Code Notes Problem Left ureteral stone N20.1 Active 73659049 Problem Acute pyelonephritis N10 Active [id number] ALLERGIES No Known Allergies ENCOUNTERS from 1935 to 2020-04-24 Encounter Location Date Provider Diagnosis [facility] [id number] [place] [address] Mar Eb Beyer Left ureteral stone N20.1 IMMUNIZATIONS No Information SOCIAL HISTORY Tobacco Use: Social History Observation Description Date Details (start date - stop date) Never Smoker Sex Assigned At : Social History Observation Description Sex Assigned At Unknown Language: Question Answer Notes Languages spoken: Khmer Orthodox: Question Answer Notes Orthodox No shinto beliefs that would impact health care. Sexual Hx: Question Answer Notes Had sex in the last 12 months (vaginal, oral, or anal)? No Have you ever had an STD? No Alcohol Screening: Question Answer Notes Did you have a drink containing alcohol in the past year? No Points 0 Interpretation Negative Tobacco Use: Question Answer Notes Are you a: never smoker REASON FOR REFERRAL No Information VITAL SIGNS No information MEDICATIONS Medication SIG (Take, Route, Frequency, Duration) Notes Start Da te End Date Status Diphenoxylate-Atropine 2.5-0.025 MG 1 tablet as needed Orall y Four times a day Active Oxybutynin Chloride 5 MG 1 tablet Orally Twice a day for 30 day(s) Active Travatan Z 0.004 % 1 drop into affected eye in the evening Ophthalmic Once a day Active Losartan Potassium 100 MG 1 tablet Orally Once a day for 30 day(s) Active AmLODIPine Besylate 5 MG 1 tablet Orally Once a day for 30 day(s) Active Aspirin 81 81 MG 1 tablet Orally Once a day for 30 day(s) Active Potassium Chloride ER 10 MEQ 1 tablet with food Orally Twice a day for 30 day(s) Active Gabapentin 300 MG 1 capsule Orally Once a day for 30 day(s) Active Diflucan 150 MG 1 tablet Orally as directed- 1 tab now and repea t in 3 days Feb, Active Dorzolamide-Timolol Activ e Pravastatin Sodium 20 MG 1 tablet Orally Once a day for 30 day(s) Active PROCEDURES No Information RESULTS No Results REASON FOR VISIT 6 wk f/u with US MEDICAL (GENERAL) HISTORY Type Description Date Medical History SD Medical History KIDNEY STONE Surgical History HYSTERECTOMY Surgical History RIGHT MASTECTOMY WITH RECONSTRUCTION Surgical History ureteroscopy Hospitalization History SEPSIS FROM KIDNEY STONE 01/2020 Goals Section No Information Health Concerns No Information MEDICAL EQUIPMENT No Information MENTAL STATUS No Information FUNCTIONAL STATUS No Information ASSESSMENTS Encounter Date Diagnosis Assessment Notes Treatment Notes Treatm ent Clinical Notes Mar, Left ureteral stone (ICD-10 - N20.1) Patient's only remaining complaint now is that she has nocturia x 3. She does not take a diuretic and takes oxybutynin at 80 at bedtime. His have some peripheral edema and I instructed her to try laying on the couch after dinner and before bedtime. This is not successful perhaps a trial of a mild diuretic after dinner or DDAVP might help. The renal ultrasound showed no hydronephrosis after ureteroscopic stone extraction. PLAN OF TREATMENT Treatment Notes Assessment Notes Clinical Notes Left ureteral stone Patient's only remai ty complaint now is that she has nocturia x 3. She does not take a diuretic and takes oxybutynin at 80 at bedtime. His have some peripheral edema and I instructed her to try laying on the couch after dinner and before bedtime. This is not successful perhaps a trial of a mild diuretic after dinner or DDAVP might help.The renal ultrasound showed no hydronephrosis after ureteroscopic stone extraction. Next Appt Details prn Reason: Insurance Providers Payer Name Payer Address Payer Phone Insured Name Patient Relati onship to Insured Coverage Start Date Coverage End Date [facility] [address] [address] [facility] [id number] [place]ICCARDO SAMUELS self MEDICARE Part A and B [address] [facility] [id number] RICCARDO SAMUELS self
--- OUTSIDE RECORDS SUMMARY | 2020-04-29 14:48 | CCD | Continuity of Care Document ---
Author Author Paola DOUGLAS VP [employer] Organization Unknown Address [address] [facility] [address] [place] [address] Phone [phone] Care Team Providers Care Flanging Roll Operator Name Role Phone Sherri Akbar MD AUTM [phone] Melody Sidhu MD AUTM [phone] Erna Hill MD AUTM [phone] [facility] AUTM [phone] [facility] AUTM [phone] Problems Active Problems Provider Date Benign essential hypertension Sherri Akbar M.D. Onset: 01/17/2011 Pure hypercholesterolemia Sherri Akbar M.D. Onset: Personal history of primary malignant neoplasm of barbra st Sherri Akbar M.D. Onset: 01/17/2011 Multiple sclerosis Sherri Akbar M.D. Onset: 1 Neutropenia Sherri Akbar M.D. Onset: 1 Abnormal glucose level Sherri Akbar M.D. Onset: 2010 Osteochondropathy Sherri Akbar M.D. Onset: 1 Medications Assisted (Current) Use Sherri Akbar M.D. Onset: 01/17/2011 Leukopenia Sherri Akbar M.D. Onset: 1 Vitamin D deficiency Sherri Akbar M.D. Onset: 01/18/20 11 Social History Type Date Description Comments Sex Unknown ETOH Use Denies alcohol use Tobacco Use Start: Unknown Patient has never smoked Allergies, Adverse Reactions, Alerts Description No Known Drug Allergies Medications Active Medications SIG Qnty Indications Ordering Provide r Date Oxybutynin Chloride 5mg Tablets 1 po qam and 1-2qhs 270tabs Sherri Akbar M.D. 02/26/20 20 Eliquis 5mg Tablets take one tablet by mouth bid 70tabs Sherri Akbar M.D. 02/26/20 20 Klor-Con 10 10Meq Tablets ER 2 by mouth every day 180tabs Sherri Akbar M.D. 02/26/20 20 Tylenol PM Extra Strength 500-25mg Tablets 1 by mouth every night at bedtime Sherri Akbar M.D. 08/30/2018 Amlodipine Besylate 5mg Tablets take one tablet by mouth at bedtime 90tabs Sherice Sanchez 08/11/2016 Losartan Potassium 100mg Tablets 1 by mouth every night at bedtime 90tabs Sherri Akbar M.D. 12/02/2015 Diphenoxylate-Atropine 2.5-0.025mg Tablets 1 three times a day by mouth as needed 90tabs Judy Akbar M.D. 11/21/2014 Pravastatin Sodium 20mg Tablets 1 by mouth at bedtime 90tabs Sherri Akbar M.D. 01/24/20 14 Fiber Complete Tablets 3 -6 qd Sherri Akbar M.D. 01/18/2011 Calcium 500+D High Potency [id number] Tablets 1 po bid Sherri Akbar M.D. 12/27 Garlic 500mg Capsules qd Sherri Akbar M.D. 01/18/2011 MV-One Capsules qd Sherri Akbar M.D. 09/01/2009 Vitamin D3 1000Unit Capsules 2 po qd Caro Luciano,SONDRA 09/01/2009 Travatan Z 0.004% Solution 1 gtt ou qhs Sherri Akbar M.D. 09/01/2009 Nitrofurantoin Monohyd Macro 100mg Capsules take one tablet by mouth daily x 30 days Unknown Acidophilus Capsules 1 by mouth with each meal and QHS Unknown Medications Administered in Office Medication SIG Qnty Indications Ordering Provider Date Administration Of Flu Vaccine Inj carolann Akbar M.D. 12/12/19 Administration Of Flu Vaccine Inj carolann Akbar M.D. 01/04/20 Administration Of Flu Vaccine Inj carolann Akbar M.D. 01/18/20 01 Immunizations CPT Code Status Date Vaccine Lot # [id number] Given 12/12/2019 Influenza Vaccin e Quadrivalent Preser/Antibiotic Free Im Use [id number] U-Flu Given 12/08/2018 Influenza,Unspecified 45102 Given 12/08/2018 Shingrix Zoster Vaccine (HZV), Recombinant, Subunit, Adjuvanted 46500 Given 10/05/2018 Shingrix Zoster Vaccine (HZV), Recombinant, Subunit, Adjuvanted U-Flu Given 12/19/2017 Influenza,Unspecified 92485 Given 08/11/2016 Tetanus/Diptheria(Td)Toxoids Preservative Free [id number] U-PneuC Given 02/04/2016 Prevnar 13 75866 Given 10/14/2011 Zoster Vaccine [id number] 02678 Given 01/03/2002 Influenza Virus Vaccine 42086 Given 01/17/2001 Influenza Virus Vaccine 62670 Given 03/04/2000 Influenza Virus Vaccine 98893 Given 01/05/1999 Influenza Virus Vaccine Vital Signs Date Vital Result Comment 02/26/2020 10:04am BP Systolic 124 mmHg BP Diastolic 76 mmHg Heart Rate 106 /min Height 65.5 inches 5'5.50" Weight 159.00 lb O2 % BldC Oximetry 94 % BMI (Body Mass Index) 26.1 kg/m2 02/06/2020 9:04am BP Systolic 124 mmHg LT Arm BP Diastolic 78 mmHg LT Arm Heart Rate 97 /min Height 56.50 inches 4'8.50" Weight 162.00 lb O2 % BldC Oximetry 96 % RM Air BMI (Body Mass Index) 35.7 kg/m2 Results Test Acquired Date Facility Test Result H/L Range Note Influenza A/B RSV Covid Amp 03/01/2020 [facility] [address] [id number] [phone] Influenza A Amplification NEGATIVE Normal Negati ve 1 Influenza B Amplification NEGATIVE Normal Negative 2 RSV Amplification NEGATIVE Normal Negative 3 Sars Covid-19 Amplification NEGATIVE Normal Negative 4 Laboratory test finding 03/01/[address] [address] [phone] Antibody Identification Anti-K Normal Type & Screen -Incl Blood Type,Marshal,AB SC 03/01/[address] [address] [phone] Blood Type A POSITIVE Normal AB Screen (Indirect Aranza)Vis POSITIVE Normal Ua W/ Reflex To Culture 03/01/[address] [address] [phone] Appearance, Urine RFX CLOUDY High Clear Color, Urine RFX RED High Yellow PH,Urine RFX 6.0 units Normal 5.0-9.0 Specific [place] Ur Auto RFX 1.014 Normal 1.002-1.035 Protein, Urine Auto RFX 2+ mg/dL High Negative Glucose, Urine (Ua) Auto RFX 1+ mg/dL High Negative Ketone, Urine Auto RFX NEGATIVE mg/dL Normal Negative Urobilinogen, Urine Auto RFX 0.2 mg/dL Normal 0.0-2.0 Bilirubin, Urine Auto RFX NEGATIVE Normal Negative Nitrite, Urine Auto RFX NEGATIVE Normal Negative Leukocyte Esterase Ur Auto RFX 1+ High Negative Blood, Urine Blood RFX 3+ High Negative WBC, Urine Auto RFX 17 /HPF High 0-3 RBC, Urine Auto RFX TNTC /HPF High 0-3 Bacteria, Urine Auto RFX NEGATIVE Normal Negative Squam Epithelial Cell Ur Aurfx 1 /HPF Normal 0-6 Hyaline Cast, Urine Auto RFX 0 /LPF Normal 0-1 Amorphous Sediment RFX SMALL High Negative Arterial Blood Gas 03/01/2020 [facility] nter [address] [place] [address] [phone] ABG pH (Arterial) 7.501 units High 7.350-7.450 ABG Partial Pressure Co2 40.3 mmHg Normal 35.0-45.0 ABG Partial Pressure O2 85.0 mmHg Normal 75.0-100.0 ABG Total Co2 32.0 mEq/L High 23.0-31.0 ABG Hco3 30.8 mEq/L High 22.0-26.0 ABG Base Excess 7.1 High -2.0-2.0 ABG Standard Hco3 30.9 mEq/L High 22.0-26.0 ABG O2 Saturation 97.0 % Normal 95.0-99.0 Laboratory test finding 03/01/2020 [facility] [address] [place] [address] [phone] Amylase 27 U/L Normal 25-115 Lipase 38 U/L Low 73-393 Lactic Acid Sepsis Protocol 2.2 mmol/L Critical high 0.4-2.0 5 NT-Pro BNP 3257 pg/mL High <450 Basic Metabolic Profile 03/01/2020 [id number] [place] [address] [phone] Glucose, Fasting 161 mg/dL High 70-100 Blood Urea Nitrogen 9 mg/dL Normal 7-18 Creatinine For GFR 0.76 mg/dL Normal 0.55-1.30 Glomerular Filtration Rate > 60.0 Normal >32 6 Sodium Level 138 mEq/L Normal 136-145 Potassium Serum 3.6 mEq/L Normal 3.5-5.1 Chloride Level 102 mEq/L Normal 98-107 Carbon Dioxide Level 30 mEq/L Normal 21-32 Anion Gap 6 mEq/L Low 8-16 Calcium Level 9.4 mg/dL Normal 8.8-10.2 Liver Profile 03/01/2020 [facility] nter [address] [place] [address] [phone] Ast/Sgot 19 U/L Normal 7-37 Alt/SGPT 15 U/L Normal 12-78 Alkaline Phosphatase 85 U/L Normal 45-117 Bilirubin,Total 1.1 mg/dL High 0.2-1.0 Bilirubin,Direct 0.3 mg/dL High 0.0-0.2 Total Protein 7.5 GM/DL Normal 6.4-8.2 Albumin 2.9 GM/DL Low 3.2-5.2 Albumin/Globulin Ratio 0.6 Low 1.2-2.2 Cardiac Marker Panel 03/01/2020 [facility] enter [address] [place] [address] [phone] CPK Creatine Phosphokinase 213 U/L High 26-19 2 CK-MB Value Mass 4.0 NG/ML High <3.6 MB/CK Relative Index 1.88 Normal < Or =4 7 Troponin I 0.03 NG/ML Normal < 0.10 8 Laboratory test finding 03/01/2020 [facility] [address] [place] [address] [phone] Partial Thromboplastin Time 55.0 seconds High 24 .2-38.5 Prothrombin Time/Inr 03/01/2020 [facility] C enter [address] [place] [address] [phone] Prothrombin Time 19.2 seconds High 12.5-14.3 Inr 1.58 Normal 9 CBC With Differential 03/01/[address] [address] [phone] White Blood Count 10.9 10 High 4.0-10.0 Red Blood Count 3.88 10 Low 4.00-5.40 Hemoglobin 12.1 g/dL Normal 12.0-15.5 Hematocrit 38.9 % Normal 36.0-47.0 Mean Corpuscular Volume 100.3 fl High 80.0-96.0 Mean Corpuscular Hemoglobin 31.2 pg Normal 27.0-33.0 Mean Corpuscular HGB Conc 31.1 g/dL Low 32.0-36.5 Red Cell Distribution Width 14.6 % High 11.5-14.5 Platelet Count, Automated 251 10 Normal 150-450 Neutrophils % 89.8 % High 36.0-66.0 Lymph % 6.3 % Low 24.0-44.0 Wilkes % 2.5 % Normal 0.0-5.0 Eos % 0.0 % Normal 0.0-3.0 Baso % 0.2 % Normal 0.0-1.0 Immature Granulocyte % 1.2 % Normal 0-3.0 Nucleated Red Blood Cell % 0.0 % Normal 0-0 Neutrophils # 9.8 10 High 1.5-8.5 Lymph # 0.7 10 Low 1.5-5.0 Wilkes # 0.3 10 Normal 0.0-0.8 Eos # 0.0 10 Normal 0.0-0.5 Baso # 0.0 10 Normal 0.0-0.2 Calculus Analysis,[facility] 02/29/2020 [facility] [address] [place] [address] [phone] Specimen Type Kidney Normal . Color Brown Normal . Size 4x7 mm Normal . 10 Weight 77 mg Normal . Composition (SEE NOTE) Normal . 11 CA Oxalate Dihy 80 % Normal . Hydroxyapatite 5 % Normal . Carbonate Apatite TNP Normal . Ca Ox Monohydrate 15 % Normal . CA Phosphate TNP Normal . MG [place] Phos TNP Normal . Uric Acid TNP Normal . Ua Dihydrate TNP Normal . Amm Acid Urate TNP Normal . Na Acid Urate TNP Normal . 2.8 Dihydroxyadenine TNP Normal . Xanthine TNP Normal . CA [place] Phos TNP Normal . Cystine TNP Normal . Cholesterol TNP Normal . CA Bilirubinate TNP Normal . CA Carbonate TNP Normal . Bilirubin TNP Normal . Calcium Palmitate TNP Normal . Calcium Stearate TNP Normal . Triamterene TNP Normal . Drug or Metabolite TNP Normal . Newberyite TNP Normal . Dried Blood TNP Normal . Cell Material TNP Normal . Other components(s) TNP Normal . Comment TNP Normal . Comment TNP Normal . Comment (SEE NOTE) Normal . 12 Please Note: (SEE NOTE) Normal . 13 Disclaimer (SEE NOTE) Normal . 14 Photo (SEE NOTE) Normal . 15 Complete Blood Count 02/26/2020 [facility] Log Snaker: [place] [address] [phone] WBC 5.2 x10*3/UL 4.1 - 10.9 RBC 3.81 x10*6/UL Low 4.20 - 6.30 Hemoglobin 12.4 g/dL 12.0 - 18.0 Hematocrit 35.5 % Low 37.0 - 51.0 MCV 93.3 fL 80.0 - 97.0 MCH 32.5 pg High 26.0 - 32.0 MCHC 34.8 g/dL 31.0 - 38.0 RDW 13.7 % 11.6 - 13.7 PLT 264 x10*3/UL 140 - 440 MPV 9.4 FL 7.8 - 11.0 Lymph % 27.5 % 10.0 - 58.5 Mid % 7.0 % 1.7 - 9.3 Neut % 65.5 % 37.0 - 92.0 Lymph # 1.4 x10*3/UL 0.6 - 4.1 Mid # 0.4 x10*3/UL 0.1 - 0.6 Neut # 3.4 x10*3/UL 2.0 - 7.8 Laboratory test finding 02/26/2020 [facility] lissa phillips Log Snaker: Dr Jake Guajardo [place] [id number] [phone] Magnesium 2.0 mg/dL 1.8 - 2.4 Basic Metabolic Panel 02/26/2020 [facility] lissa pop Log Snaker: [place] [address] [phone] Glucose 118 mg/dL High 74 - 99 16 BUN 6 mg/dL Low 7 - 18 Creatinine 0.7 mg/dL 0.6 - 1.3 Sodium 143 mEq/L 136 - 145 Potassium 3.1 mEq/L Low 3.5 - 5.1 17 Chloride 103 mEq/L 98 - 107 Carbon Dioxide 29 mEq/L 21 - 32 Calcium 9.6 mg/dL 8.5 - 10.1 GFR >= 60 mL/min >60 GFR >= 60 mL/min >60 18 Comprehensive Chem Profile 02/06/2020 [facility]ckett Log Snaker: [place] [address] [phone] Glucose 106 mg/dL High 74 - 99 19 BUN 13 mg/dL 7 - 18 Creatinine 0.7 mg/dL 0.6 - 1.3 Sodium 143 mEq/L 136 - 145 Potassium 4.0 mEq/L 3.5 - 5.1 Chloride 106 mEq/L 98 - 107 Carbon Dioxide 27 mEq/L 21 - 32 Calcium 9.8 mg/dL 8.5 - 10.1 Alk. Phosphatase 87 mg/dL 46 - 116 Total Bilirubin 1.0 mg/dL High 0.2 - 1.0 Ast (Sgot) 21 U/L 15 - 37 Alt (SGPT) 19 U/L 12 - 78 Albumin 3.6 g/dL 3.4 - 5.0 Total Protein 7.1 g/dL 6.4 - 8.2 A/G Ratio 1.03 CALC 1.00 - 1.90 GFR >= 60 mL/min >60 GFR >= 60 mL/min >60 20 Laboratory test finding 02/06/2020 [facility] jacqueline, lissa Log Snaker: [place] [address] [phone] Sed Rate 42 mm/hr High 0 - 15 Complete Blood Count 02/06/2020 [place] [facility] slissa Log Snaker: [place] [address] [phone] WBC 6.2 x10*3/UL 4.1 - 10.9 RBC 3.73 x10*6/UL Low 4.20 - 6.30 Hemoglobin 12.2 g/dL 12.0 - 18.0 Hematocrit 35.9 % Low 37.0 - 51.0 MCV 96.1 fL 80.0 - 97.0 MCH 32.7 pg High 26.0 - 32.0 MCHC 34.0 g/dL 31.0 - 38.0 RDW 13.9 % High 11.6 - 13.7 PLT 256 x10*3/UL 140 - 440 MPV 9.7 FL 7.8 - 11.0 Lymph % 24.3 % 10.0 - 58.5 Mid % 6.6 % 1.7 - 9.3 Neut % 69.1 % 37.0 - 92.0 Lymph # 1.5 x10*3/UL 0.6 - 4.1 Mid # 0.4 x10*3/UL 0.1 - 0.6 Neut # 4.3 x10*3/UL 2.0 - 7.8 Laboratory test finding 02/06/[address] [address] [phone] C Reactive Protein Quantitativ 1.09 mg/dL High 0 .00-0.30 Ua W/ Reflex To Culture 01/08/[address] [address] [phone] Appearance, Urine RFX CLOUDY High Clear Color, Urine RFX MAGGY Normal Yellow PH,Urine RFX 6.0 units Normal 5.0-9.0 Specific [place] Ur Auto RFX 1.013 Normal 1.002-1.035 Protein, Urine Auto RFX 1+ mg/dL High Negative Glucose, Urine (Ua) Auto RFX NEGATIVE mg/dL Normal Negative Ketone, Urine Auto RFX TRACE mg/dL High Negative Urobilinogen, Urine Auto RFX 0.2 mg/dL Normal 0.0-2.0 Bilirubin, Urine Auto RFX NEGATIVE Normal Negative Nitrite, Urine Auto RFX POSITIVE High Negative Leukocyte Esterase Ur Auto RFX TRACE High Negative Blood, Urine Blood RFX 2+ High Negative WBC, Urine Auto RFX 16 /HPF High 0-3 RBC, Urine Auto RFX 20 /HPF High 0-3 Bacteria, Urine Auto RFX 2+ High Negative Squam Epithelial Cell Ur Aurfx 0 /HPF Normal 0-6 Mucus, Urine RFX MODERATE Normal Negative Hyaline Cast, Urine Auto RFX 3 /LPF Normal 0-1 Cardiac Marker Panel 01/08/2020 [facility] C enter [address] [place] [address] [phone] CPK Creatine Phosphokinase 813 U/L High 26-19 2 CK-MB Value Mass 5.8 NG/ML High <3.6 MB/CK Relative Index 0.71 Normal < Or =4 21 Troponin I 0.25 NG/ML High < 0.10 22 Liver Profile 01/08/2020 [facility] nter [address] [place] [address] [phone] Ast/Sgot 66 U/L High 7-37 Alt/SGPT 35 U/L Normal 12-78 Alkaline Phosphatase 82 U/L Normal 45-117 Bilirubin,Total 2.9 mg/dL High 0.2-1.0 Bilirubin,Direct 0.6 mg/dL High 0.0-0.2 Total Protein 7.2 GM/DL Normal 6.4-8.2 Albumin 3.3 GM/DL Normal 3.2-5.2 Albumin/Globulin Ratio 0.8 Low 1.2-2.2 Basic Metabolic Profile 01/08/2020 [facility] [address] [place] [address] [phone] Glucose, Fasting 167 mg/dL High 70-100 Blood Urea Nitrogen 22 mg/dL High 7-18 Creatinine For GFR 1.21 mg/dL Normal 0.55-1.30 Glomerular Filtration Rate 45.1 Normal >32 2 3 Sodium Level 142 mEq/L Normal 136-145 Potassium Serum 3.7 mEq/L Normal 3.5-5.1 Chloride Level 109 mEq/L High 98-107 Carbon Dioxide Level 23 mEq/L Normal 21-32 Anion Gap 10 mEq/L Normal 8-16 Calcium Level 9.9 mg/dL Normal 8.8-10.2 CBC With Differential 01/08/[address] [address] [phone] White Blood Count 16.1 10 High 4.0-10.0 Red Blood Count 3.91 10 Low 4.00-5.40 Hemoglobin 12.8 g/dL Normal 12.0-15.5 Hematocrit 39.4 % Normal 36.0-47.0 Mean Corpuscular Volume 100.8 fl High 80.0-96.0 Mean Corpuscular Hemoglobin 32.7 pg Normal 27.0-33.0 Mean Corpuscular HGB Conc 32.5 g/dL Normal 32.0-36.5 Red Cell Distribution Width 13.6 % Normal 11.5-14.5 Platelet Count, Automated 100 10 Low 150-450 Nucleated Red Blood Cell % 0.1 % High 0-0 Differential 01/08/2020 [facility] nter [address] [place] [address] [phone] Neutrophils 80 % High 28-66 Bands 12 % High < 11 Lymphocytes 5 % Low 16-44 Monocytes 2 % Normal 0-5 Metamyelocytes 1 % High 0-0 Macrocytosis 1+ Normal Dohle Bodies 1+ Normal Laboratory test finding 01/08/[address] [address] [phone] Platelet Estimate DECREASED Normal Normal NT-Pro BNP 33000 pg/mL High <450 Laboratory test finding 01/08/[address] [address] [phone] Lactic Acid Sepsis Protocol 4.9 mmol/L Critical high 0 .4-2.0 24 Complete Blood Count 12/11/2019 [facility] Log Snaker: [place] [address] [phone] WBC 5.5 x10*3/UL 4.1 - 10.9 25 RBC 4.43 x10*6/UL 4.20 - 6.30 Hemoglobin 14.4 g/dL 12.0 - 18.0 Hematocrit 42.6 % 37.0 - 51.0 MCV 96.1 fL 80.0 - 97.0 MCH 32.6 pg High 26.0 - 32.0 MCHC 33.9 g/dL 31.0 - 38.0 RDW 13.4 % 11.6 - 13.7 PLT 119 x10*3/UL Low 140 - 440 MPV 9.7 FL 7.8 - 11.0 Lymph % 51.8 % 10.0 - 58.5 Mid % 7.9 % 1.7 - 9.3 Neut % 40.3 % 37.0 - 92.0 Lymph # 2.8 x10*3/UL 0.6 - 4.1 Mid # 0.5 x10*3/UL 0.1 - 0.6 Neut # 2.2 x10*3/UL 2.0 - 7.8 Basic Metabolic Panel 12/11/2019 [facility] Log Snaker: [place] [address] [phone] Glucose 108 mg/dL High 74 - 99 26 BUN 15 mg/dL 7 - 18 Creatinine 0.7 mg/dL 0.6 - 1.3 Sodium 141 mEq/L 136 - 145 Potassium 4.4 mEq/L 3.5 - 5.1 Chloride 105 mEq/L 98 - 107 Carbon Dioxide 23 mEq/L 21 - 32 Calcium 9.5 mg/dL 8.5 - 10.1 GFR >= 60 mL/min >60 GFR >= 60 mL/min >60 27 Ua Dipstick Only 12/11/2019 [facility] Log Snaker: [place] [address] [phone] Urine Color YELLOW Yellow Urine Appearance TURBID Abnormal Clear Urine PH 8.0 units 5.0 - 9.0 Urine Specific [place] 1.010 1.005 - 1.030 Urine Leukocytes NEGATIVE Negative Urine Blood NEGATIVE Negative Urine Protein NEGATIVE Negative -Trace Urine Glucose NEGATIVE mg/dL Negative Urine Nitrite POSITIVE Abnormal Negative Urine Ketone NEGATIVE mg/dL Negative Urine Bilirubin NEGATIVE Negative Urine Urobilinogen 0.2 mg/dL 0.2 - 1.0 Microalbumin/Creatinine Urine 12/11/2019 [facility] Log Snaker: [place] [address] [phone] Microalbumin Urine 18.6 mg/L 1.3 - 20.0 Urine Creatinine 48.9 mg/dL 30.0 - 125.0 Microalb/Creat Ratio 38.0 ug/mg High 0.0 - 30.0 1 Negative results do not prec lude influenza or RSV virus infection and should not be used as the sole basis for treatment or other patient management decisions. 2 Negative results do not prec lude influenza or RSV virus infection and should not be used as the sole basis for treatment or other patient management decisions. 3 Negative results do not prec lude influenza or RSV virus infection and should not be used as the sole basis for treatment or other patient management decisions. 4 A false negative result may occur if a specimen is improperly collected, transported or handled. False negative results may also occur if inadequate numbers of organisms are present in the specimen. As with any molecular test, mutations within the target regions of Xpert Xpress SARS-CoV-2 could affect primer and/or probe binding resulting in failure to detect the presence of virus. This test cannot rule out diseases caused by other bacterial or viral pathogens. DISCLAIMER: Testing was performed using the [employer] SARS-CoV-2 test. This test was developed and its performance characteristics determined by [employer]. This test has not been FDA cleared or approved. This test has been authorized by FDA under an Emergency Use Authorization (EUA). This test is only authorized for the duration of time the declaration that circumstances exist justifying the authorization of the emergency use of in vitro diagnostic tests for detection of SARS-CoV-2 virus and/or diagnosis of COVID-19 infection under section 564(b)(1) of the Act, 21 U.S.C. 360bbb-3(b)(1), unless the authorization is terminated or revoked sooner. 5 Y/N query for Sepsis Lactate Rule: Y 6 Units are mL/min/1.73 m2 Chronic Kidney Disease Staging per NKF: Stage I & II GFR >=60 Normal to Mildly Decreased Stage III GFR 30-59 Moderately Decreased Stage IV GFR 15-29 Severely Decreased Stage V GFR <15 Very Little GFR Left ESRD GFR <15 on GRINDER AND PLATER 7 DIAGNOSIS CRITERIA MMB ng/ml Relative Index (RI) NON-AMI < or = 5 N/A RIOS ZONE > 5 < or = 4 AMI > 5 > 4 8 Troponin I Reference Interva [facility] LOCI: 99th Percentile= 0.00-0.045 ng/ml Risk Stratification: <= 0.10 ng/ml Decreased Risk for Adverse Clinical Events. 0.10-1.50 ng/ml Increased Risk for Adv erse Clinical Events. Evaluation of additional criterion and/or repeat testing in 2-6 hours is suggested to rule out myocardial damage. >= 1.50 ng/ml Indicative of Myocardial Injury. 9 THERAPUTIC HUMAN INR VALUES INDICATIONS NORMAL RANGES PROPHYLAXIS/TREATMENT OF: VENOUS THROMBOSIS 2.0-3.0 PULMONARY EMBOLISM 2.0-3.0 PREVENTION OF SYSTEMIC EMBOLISM FROM: TISSUE HEART VALVES 2.0-3.0 ACUTE MYOCARDIAL INFARCTION 2.0-3.0 VALVULAR HEART DISEASE 2.0-3.0 ATRIAL FIBRILLATION 2.0-3.0 MECHANICAL VALVES(HIGH RISK) 2.5-3.5 RECURRENT MYOCARDIAL INFARCTION 2.5-3.5 10 Multiple pieces received. D imensions of the largest piece reported. 11 . Percentage (Represents the % composition) 12 . Physician questions regarding Calculi Analysis contact [facility] at: [phone]. 13 . Calculi report will follow via computer, mail or embossing toolsetter delivery. 14 . This test was developed and its performance characteristics determined by [facility]. It has not been cleared or approved by the Food and Drug Administration. Performed at: [facility] [address] [place] [address] [place] [id number] Log Snaker: Ren Cheng MD, Phone: [phone] 15 . Photograph will follow under a separate cover 16 100-125 mg/dL PRE-DIABET ES/FASTING >126 mg/dL DIABETES/FASTING 17 NOTE: RESULT VERIFIED. 18 CHRONIC KIDNEY DISEASE STAGI NG PER NKF STAGE I & II GFR >= 60 NORMAL TO MILDLY DECREASED STAGE III GFR 30-59 MODERATELY DECREASED STAGE IV GFR 15-29 SEVERELY DECREASED STAGE V GFR <15 VERY LITTLE GFR LEFT ESRD GFR <15 ON GRINDER AND PLATER 19 100-125 mg/dL PRE-DIABET ES/FASTING >126 mg/dL DIABETES/FASTING 20 CHRONIC KIDNEY DISEASE STAGI NG PER NKF STAGE I & II GFR >= 60 NORMAL TO MILDLY DECREASED STAGE III GFR 30-59 MODERATELY DECREASED STAGE IV GFR 15-29 SEVERELY DECREASED STAGE V GFR <15 VERY LITTLE GFR LEFT ESRD GFR <15 ON GRINDER AND PLATER 21 DIAGNOSIS CRITERIA MMB ng/ml Relative Index (RI) NON-AMI < or = 5 N/A RIOS ZONE > 5 < or = 4 AMI > 5 > 4 22 Troponin I Reference Interva l [facility] LOCI: 99th Percentile= 0.00-0.045 ng/ml Risk Stratification: <= 0.10 ng/ml Decreased Risk for Adverse Clinical Events. 0.10-1.50 ng/ml Increased Risk for Adv erse Clinical Events. Evaluation of additional criterion and/or repeat testing in 2-6 hours is suggested to rule out myocardial damage. >= 1.50 ng/ml Indicative of Myocardial Injury. 23 Units are mL/min/1.73 m2 Chronic Kidney Disease Staging per NKF: Stage I & II GFR >=60 Normal to Mildly Decreased Stage III GFR 30-59 Moderately Decreased Stage IV GFR 15-29 Severely Decreased Stage V GFR <15 Very Little GFR Left ESRD GFR <15 on GRINDER AND PLATER 24 Y/N query for Sepsis Lactate Rule: Y 25 NOTE: RESULT VERIFIED. 26 100-125 mg/dL PRE-DIABET ES/FASTING >126 mg/dL DIABETES/FASTING 27 CHRONIC KIDNEY DISEASE STAGI NG PER NKF STAGE I & II GFR >= 60 NORMAL TO MILDLY DECREASED STAGE III GFR 30-59 MODERATELY DECREASED STAGE IV GFR 15-29 SEVERELY DECREASED STAGE V GFR <15 VERY LITTLE GFR LEFT ESRD GFR <15 ON GRINDER AND PLATER Procedures Date Code Description Status 08/19/2016 [id number] Bone Mineral Density Test [facility] 11/12/2015 [id number] Mammogram Completed 11/06/2014 [id number] Mammogram Completed 11/05/2013 [id number] Bone Mineral Density Test [facility] 11/05/2013 [id number] Mammogram Completed 11/02/2012 [id number] Mammogram Completed 01/10/2012 [id number] Colonoscopy Completed 11/02/2011 [id number] Mammogram Completed 10/15/2011 [id number] Bone Mineral Density Test [facility] 10/20/2010 [id number] Mammogram Completed 10/13/2010 [id number] Mammogram Completed 10/08/2009 [id number] Mammogram Completed 10/07/2009 [id number] Bone Mineral Density Test [facility] 01/16/2001 [id number] Colonoscopy Completed Medical Devices Description No Information Available Encounters Type Date Location Provider Dx Diagnosis Office Visit 03/14/2020 1:00p [place] [facility]ill[facility] FNP M62.81 Muscle weakness (generalized) G35 Multiple sclerosis I10 Essential (primary) hyperten vy R29.6 Repeated falls N20.0 Calculus of kidney Office Visit 02/26/2020 10:[place]a [place] [facility] M.D. 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 R29.6 Repeated falls A41.51 Sepsis due to Escherichia co li [E. coli] K80.00 Calculus of gallbladder w ac [place] cholecyst w/o obstruction I10 Essential (primary) hyperten vy R60.0 Localized edema G35 Multiple sclerosis M19.90 Unspecified osteoarthritis, unspecified site M81.0 Age-related osteoporosis w/o current pathological fracture R19.7 Diarrhea, unspecified Office Visit 12/12/2019 10:45a [place] M.D. I10 Essential (primary) hyperten vy E78.00 Pure hypercholesterolemia, u nspecified R60.0 Localized edema M81.0 Age-related osteoporosis w/o current pathological fracture R73.09 Other abnormal glucose R19.7 Diarrhea, unspecified G35 Multiple sclerosis Z85.3 Personal history of malignan t neoplasm of breast R32 Unspecified urinary incontin ence Z23 Encounter for immunization Assessments Date Code Description Provider 03/14/2020 M62.81 Muscle weakness (generalized) Seymour Douglas, [employer] 03/14/2020 G35 Multiple sclerosis Barb Douglas , [employer] 03/14/2020 I10 Essential (primary) hypertension Barb Douglas, [employer] 03/14/2020 R29.6 Repeated falls Barb Douglas, F [employer] 03/14/2020 N20.0 Calculus of kidney Barb Douglas , [facility] 02/26/2020 Z01.810 Encounter for preprocedural card iovascular examination Sherri Akbar M.D. 02/26/2020 N20.0 Calculus of kidney Sherri massey M.D. 02/26/2020 I82.411 Acute embolism and thrombosis of right femoral vein Sherri Akbar M.D. 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 02/26/2020 I10 Essential (primary) hypertension Sherri Akbar M.D. 02/26/2020 E87.6 Hypokalemia Sherri leon M.D. 02/26/2020 R32 Unspecified urinary incontinence Sherri Akbar M.D. 02/26/2020 K58.0 Irritable bowel syndrome with di arrhea Sherri Akbar M.D. 02/26/2020 G35 Multiple sclerosis Sherri massey M.D. 02/26/2020 K80.00 Calculus of gallblad mireal with acute cholecystitis without obstruction Sherri Akbar M.D. 02/26/2020 M19.90 Unspecified osteoarthritis, unsp ecified site Sherri Akbar M.D. 02/26/2020 E78.5 Hyperlipidemia, unspecified Dina Akbar M.D. 02/06/2020 R29.6 Repeated falls Sherri leon M.D. 02/06/2020 A41.51 Sepsis due to Escherichia coli [ E. coli] Sherri Akbar M.D. 02/06/2020 K80.00 Calculus of gallblad mirela with acute cholecystitis without obstruction Sherri Akbar M.D. 02/06/2020 I10 Essential (primary) hypertension Sherri Akbar M.D. 02/06/2020 R60.0 Localized edema Sherri leon M.D. 02/06/2020 G35 Multiple sclerosis Sherri massey M.D. 02/06/2020 M19.90 Unspecified osteoarthritis, unsp ecified site Sherri Akbar M.D. 02/06/2020 M81.0 Age-related osteoporosis without current pathological fracture Sherri Akbar M.D. 02/06/2020 R19.7 Diarrhea, unspecified Sherri otto M.D. 12/12/2019 I10 Essential (primary) hypertension Sherri Akbar M.D. 12/12/2019 E78.00 Pure hypercholesterolemia, unspe cified Sherri Akbar M.D. 12/12/2019 R60.0 Localized edema Sherri leon M.D. 12/12/2019 M81.0 Age-related osteoporosis without current pathological fracture Sherri Akbar M.D. 12/12/2019 R73.09 Other abnormal glucose Sherri Akbar M.D. 12/12/2019 R19.7 Diarrhea, unspecified Sherri otto M.D. 12/12/2019 G35 Multiple sclerosis Sherri massey M.D. 12/12/2019 Z85.3 Personal history of malignant ne oplasm of breast Sherri Akbar M.D. 12/12/2019 R32 Unspecified urinary incontinence Sherri Akbar M.D. 12/12/2019 Z23 Encounter for immunization Sherri Akbar M.D. 12/11/2019 E78.00 Pure hypercholesterolemia, unspe cified Sherri Akbar M.D. 12/11/2019 E78.00 Pure hypercholesterolemia, unspe cified Lab Schedule 12/11/2019 I10 Essential (primary) hypertension Sherri Akbar M.D. 12/11/2019 I10 Essential (primary) hypertension Lab Schedule Plan of Treatment Future Appointment(s):* 08/12/2020 10:10 am - Lab Schedule at [facility] * 08/13/2020 11:00 am - Sherri Akbar M.D. at [facility] * 08/13/2020 10:40 am - Nurse #2 at [facility] 03/14/2020 - SONDRA العراقي* M62.81 Muscle weakness (generalized)* New Orders:* Hosptial Bed, Ordered: 03/14/20 * Comments:* Hx of Rhabdomyolysis and was hospitalized 12/2019, and again with this hospital stay with continued deconditioning and progressive weakness. Order sent for hospital bed for the home. * G35 Multiple sclerosis* New Orders:* Hosptial Bed, Ordered: 03/14/20 * Comments:* Order sent for hospital bed for the home. Continues to have support from home health- has a nurse and therapy coming to the home. * I10 Essential (primary) hypertension* Comments:* Nurse is monitoring the BP in the home, her daughter tells me they have not been monitoring the BP. * R29.6 Repeated falls* Comments:* Due to deconditioning, progressive weakness, MS. Continue therapy. Has adequate support in the home. Fall precautions discussed. * N20.0 Calculus of kidney* Comments:* S/P left urteroscopy with basket extraction of stone, left retrograde pyelogram with intraoperative interpretation of images and left uretral stent exchange.Followed up with urology yesterday, stent was removed in the office. Has follow ups scheduled Apr 10 for ultrasound, Apr 16 for office visit. * All * Comments:* RTC as previously scheduled, sooner PRN.COVID precautions are discussed and social distancing/mask use/ frequent hand washing and sanitizing are encouraged. Functional Status Description No Information Available Mental Status Description No Information Available Referrals Description No Information Available
--- OUTSIDE RECORDS SUMMARY | 2020-04-29 14:48 | CCD ---
Author Author [facility] Organization 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 Name Role Phone Eb Beyer Unavailable PROBLEMS Type Condition ICD9-CM Code [id number] Code Onset Dates Condition S tatus SNOMED Code Notes Problem Left ureteral stone N20.1 Active 64049961 Problem Acute pyelonephritis N10 Active 73751597 ALLERGIES No Known Allergies ENCOUNTERS from 1935 to 2020-04-15 Encounter Location Date Provider Diagnosis [facility] [address] [place] [address] Mar Eb Beyer IMMUNIZATIONS No Information SOCIAL HISTORY Tobacco Use: Social History Observation Description Date Details (start date - stop date) Never Smoker Sex Assigned At : Social History Observation Description Sex Assigned At Unknown Language: Question Answer Notes Languages spoken: Nigerien Jew: Question Answer Notes Jew No rastafarian beliefs that would impact health care. Sexual [...] Information RESULTS No Results REASON FOR VISIT regarding appt MEDICAL (GENERAL) HISTORY Type Description Date Medical History [place] Medical History KIDNEY STONE Surgical History HYSTERECTOMY Surgical History RIGHT MASTECTOMY WITH RECONSTRUCTION Surgical History ureteroscopy Hospitalization History SEPSIS FROM KIDNEY STONE 01/2020 Goals Section No Information Health Concerns No Information MEDICAL EQUIPMENT No Information MENTAL STATUS No Information FUNCTIONAL STATUS No Information ASSESSMENTS No Information PLAN OF TREATMENT Next Appt Details Provider Name:Eb Beyer, 2020-04-16 11:00:00 AM, [address], [place], [address], Insurance Providers Payer Name Payer Address Payer Phone Insured Name Patient Relati onship to Insured Coverage Start Date Coverage End Date MEDICARE Part A and B [address] [facility] [id number] [phone] RICCARDO SAMUELS [facility] [address] [address] [facility] [phone] RICCARDO SAMUELS
--- OUTSIDE RECORDS SUMMARY | 2020-04-29 14:49 | CCD ---
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 Member Name Role Phone Tapan Hansen Unavailable PROBLEMS Type Condition ICD9-CM Code [id number] Code Onset Dates Condition S tatus SNOMED Code Notes Problem Left ureteral stone N20.1 Active 30689828 Problem Acute pyelonephritis N10 Active 70516908 ALLERGIES No Known Allergies ENCOUNTERS from 1935 to 2020-03-10 Encounter Location Date Provider Diagnosis [facility] [address] [place] [address] Feb, Tapan Hansen IMMUNIZATIONS No Information SOCIAL HISTORY Tobacco Use: Social History Observation Description Date Details (start date - stop date) Never Smoker Sex Assigned At : Social History Observation Description Sex Assigned At Unknown Language: Question Answer Notes Languages spoken: Jamaican Yarsanism: Question Answer Notes Yarsanism No oriental orthodox beliefs that would impact health care. Sexual [...] Orall y Four times a day Active Potassium Chloride ER 10 MEQ 1 tablet with food Orally Twice a day for 30 day(s) Active Losartan Potassium 100 MG 1 tablet Orally Once a day for 30 day(s) Active Oxybutynin Chloride 5 MG 1 tablet Orally Twice a day for 30 day(s) Active Dorzolamide-Timolol Activ e Gabapentin 300 MG 1 capsule Orally Once a day for 30 day(s) Active AmLODIPine Besylate 5 MG 1 tablet Orally Once a day for 30 day(s) Active Travatan Z 0.004 % 1 drop into affected eye in the evening Ophthalmic Once a day Active Diflucan 150 MG 1 tablet Orally as directed- 1 tab now and repea t in 3 days Feb, Active Pravastatin Sodium 20 MG 1 tablet Orally Once a day for 30 day(s) Active Aspirin 81 81 MG 1 tablet Orally Once a day for 30 day(s) Active PROCEDURES No Information RESULTS No Results REASON FOR VISIT stent removal MEDICAL (GENERAL) HISTORY Type Description Date Medical History [place] Medical History KIDNEY STONE Surgical History HYSTERECTOMY Surgical History RIGHT MASTECTOMY WITH RECONSTRUCTION Hospitalization History SEPSIS FROM KIDNEY STONE 01/2020 Goals Section No Information Health Concerns No Information MEDICAL EQUIPMENT No Information MENTAL STATUS No Information FUNCTIONAL STATUS No Information ASSESSMENTS No Information PLAN OF TREATMENT Medication Medication Name Sig Start Date Stop Date Diflucan 150 MG 1 tablet Orally as directed- 1 tab now a nd repeat in 3 days Feb, Next Appt Details Provider Name:Tapan Doug Hansen, 2020-03-13 09:30:00 AM, [address], [place], [address], Insurance Providers Payer Name Payer Address Payer Phone Insured Name Patient Relati onship to Insured Coverage Start Date Coverage End Date MEDICARE Part A and B [address] [facility] [address] [phone] [facility] [address] [address] [facility] [phone] RICCARDO SAMUELS
--- OUTSIDE RECORDS SUMMARY | 2020-04-29 14:49 | CCD ---
Author Author [facility] Organization [facility] Address Unknown Phone Unavailable Care Team Providers Care Intelligence Clerk Name Role Phone Tapan Hansen Unavailable PROBLEMS Type Condition ICD9-CM Code [id number] Code Onset Dates Condition S tatus SNOMED Code Notes Problem Left ureteral stone N20.1 Active 24231580 Problem Acute pyelonephritis N10 Active 81845468 ALLERGIES No Known Allergies ENCOUNTERS from 1935 to 2020-03-17 Encounter Location Date Provider Diagnosis [facility] [address] [place] [address] Feb, Tapan Hansen Left ureteral stone N20.1 IMMUNIZATIONS No Information SOCIAL HISTORY Tobacco Use: Social History Observation Description Date Details (start date - stop date) Never Smoker Sex Assigned At : Social History Observation Description Sex Assigned At Unknown Language: Question Answer Notes Languages spoken: Greenlandic Advent: Question Answer Notes Advent No gnosticism beliefs that would impact health care. Sexual [...] REASON FOR REFERRAL No Information VITAL SIGNS Weight 162 lbs Feb, Height 58 in Feb, BMI 33.85 kg/m2 Feb, Heart Rate 101 /min Feb, Respiratory Rate 18 /min Feb, Temperature 98.0 degrees Fahrenheit Feb, Oximetry 92 Feb, Blood pressure systolic 122 mm Hg Feb, Blood pressure diastolic 64 mm Hg Feb, MEDICATIONS Medication SIG (Take, Route, Frequency, Duration) [...] Information RESULTS No Results REASON FOR VISIT S/P LASER LITHO. CYSTO W/ STENT REMOVAL MEDICAL (GENERAL) HISTORY Type Description Date Medical History [place] Medical History KIDNEY STONE Surgical History HYSTERECTOMY Surgical History RIGHT MASTECTOMY WITH RECONSTRUCTION Surgical History ureteroscopy Hospitalization History SEPSIS FROM KIDNEY STONE 01/2020 Goals Section No Information Health Concerns No Information MEDICAL EQUIPMENT No Information MENTAL STATUS No Information FUNCTIONAL STATUS No Information ASSESSMENTS Encounter Date Diagnosis Assessment Notes Treatment Notes Treatm ent Clinical Notes Feb, Left ureteral stone (ICD-10 - N20.1) PLAN OF TREATMENT Treatment Notes Test Name Order Date Medication: Cipro Tab 500mg Orally (Ciprofloxacin) Future Test Test Name Order Date RENAL ULTRASOUND [id number] Next Appt Details Provider Name:Eb Beyer, 2020-04-16 11:00:00 AM, [address], [place], [address], Insurance Providers Payer Name Payer Address Payer Phone Insured Name Patient Relati onship to Insured Coverage Start Date Coverage End Date [facility] [address] [address] [facility] [phone] RICCARDO SAMUELS MEDICARE Part A and B [address] [facility] [address] [phone] RICCARDO SAMUELS
--- OUTSIDE RECORDS SUMMARY | 2020-04-29 14:49 | CCD | Continuity of Care Document ---
Author Organization Unknown Address Unknown Phone Unavailable Care Team Providers Care Nuclear Medicine Specialist Name Role Phone Sherri Akbar MD AUTM [phone] Melody Sidhu MD AUTM [phone] Erna Hill MD AUTM [phone] [facility] AUTM [phone] [facility] AUTM [phone] Problems Active Problems Provider Date Benign essential hypertension Sherri Akbar M.D. Onset: 01/17/2011 Pure hypercholesterolemia Sherri Akbar M.D. Onset: Personal history of primary malignant neoplasm of barbra st Sherri Akbar M.D. Onset: 01/17/2011 Multiple sclerosis Sherri Akbar M.D. Onset: 1 Neutropenia Sherri Akbar M.D. Onset: 1 Abnormal glucose level Sherri Akbar M.D. Onset: 2010 Osteochondropathy Sherri Akbar M.D. Onset: 1 Medications Mcfp (Current) Use Sherri Akbar M.D. Onset: 01/17/2011 [...] M.D. 02/26/20 20 Eliquis 5mg Tablets take 2 tablets by mouth twice a day for 7 days then 5 mg bid 70tabs Sherri Akbar M.D. 02/26/2020 Klor-Con 10 10Meq Tablets ER 2 by [...] Akbar M.D. 01/18/2011 Calcium 500+D High Potency [id number] Tablets 1 po bid Sherri Akbar M.D. 12/27 Garlic 500mg Capsules qd Sherri Akbar M.D. 01/18/2011 MV-One Capsules qd Sherri Akbar M.D. 09/01/2009 Vitamin D3 1000Unit Capsules 2 po qd Caro Luciano FNP 09/01/2009 Travatan Z 0.004% Solution 1 gtt ou qhs Sherri Akbar M.D. 09/01/2009 Cosopt PF 22.3-6.8mg/ml Solution Unknown Medications Administered in Office Medication SIG Qnty Indications Ordering Provider Date Administration Of Flu Vaccine Inj ection Sherri Smiley Raffy, M.D. 12/12/19 20 Administration Of Flu Vaccine Inj carolann Akbar M.D. 01/04/20 02 Administration Of Flu Vaccine Inj carolann Akbar M.D. 01/18/20 01 Immunizations CPT Code Status Date Vaccine Lot # [id number] Given 12/12/2019 Influenza Vaccin e Quadrivalent Preser/Antibiotic Free Im Use [id number] U-Flu Given 12/08/2018 Influenza,Unspecified 09828 Given 12/08/2018 Shingrix Zoster Vaccine (HZV), Recombinant, Subunit, Adjuvanted 84475 Given 10/05/2018 Shingrix Zoster Vaccine (HZV), Recombinant, Subunit, Adjuvanted U-Flu Given 12/19/2017 Influenza,Unspecified 29987 Given 08/11/2016 Tetanus/Diptheria(Td)Toxoids Preservative Free [id number] U-PneuC Given 02/04/2016 Prevnar 13 95634 Given 10/14/2011 Zoster Vaccine [id number] 41757 Given 01/03/2002 Influenza Virus Vaccine 92533 Given 01/17/2001 Influenza Virus Vaccine 02654 Given 03/04/2000 Influenza Virus Vaccine 55734 Given 01/05/1999 Influenza Virus Vaccine Vital Signs [...] Note Influenza A/B RSV Covid Amp 03/01/2020 [facility] [address] [place] [address] [phone] Influenza A Amplification NEGATIVE Normal Negati ve 1 Influenza B Amplification NEGATIVE Normal Negative 2 RSV Amplification NEGATIVE Normal Negative 3 Sars Covid-19 Amplification NEGATIVE Normal Negative 4 Laboratory test finding 03/01/2020 [facility] [address] [place] [address] [phone] Antibody Identification Anti-K Normal Type & Screen -Incl Blood Type,Marshal,AB SC 03/01/[address] [facility] [address] [place] [address] [phone] Blood Type A POSITIVE Normal AB Screen (Indirect Aranza)Vis POSITIVE Normal Ua W/ Reflex To Culture 03/01/[address] [address] [phone] Appearance, Urine RFX CLOUDY High Clear Color, Urine RFX RED High Yellow PH,Urine RFX 6.0 units Normal 5.0-9.0 Specific [place] Ur Auto RFX 1.014 Normal 1.002-1.035 Protein, [...] SMALL High Negative Arterial Blood Gas 03/01/2020 [facility] [address] [place] [address] [phone] ABG pH (Arterial) 7.501 units High 7.350-7.450 ABG Partial Pressure Co2 40.3 mmHg Normal 35.0-45.0 ABG Partial Pressure O2 85.0 mmHg Normal 75.0-100.0 ABG Total Co2 32.0 mEq/L High 23.0-31.0 ABG Hco3 30.8 mEq/L High 22.0-26.0 ABG Base Excess 7.1 High -2.0-2.0 ABG Standard Hco3 30.9 mEq/L High 22.0-26.0 ABG O2 Saturation 97.0 % Normal 95.0-99.0 Laboratory test finding 03/01/2020 [facility] [address] [place] [address] [phone] Amylase 27 U/L Normal 25-115 Lipase 38 U/L Low 73-393 Lactic Acid Sepsis Protocol 2.2 mmol/L Critical high 0.4-2.0 5 NT-Pro BNP 3257 pg/mL High <450 Basic Metabolic Profile 03/01/2020 [facility] [address] [place] [address] [phone] Glucose, Fasting 161 mg/dL High 70-100 Blood [...] 9.4 mg/dL Normal 8.8-10.2 Liver Profile 03/01/2020 [facility] [address] [place] [address] [phone] Ast/Sgot 19 U/L Normal 7-37 Alt/SGPT 15 U/L Normal 12-78 Alkaline Phosphatase 85 U/L Normal 45-117 Bilirubin,Total 1.1 mg/dL High 0.2-1.0 Bilirubin,Direct 0.3 mg/dL High 0.0-0.2 Total Protein 7.5 GM/DL Normal 6.4-8.2 Albumin 2.9 GM/DL Low 3.2-5.2 Albumin/Globulin Ratio 0.6 Low 1.2-2.2 Cardiac Marker Panel 03/01/2020 [facility] enter [address] [place] [address] [phone] CPK Creatine Phosphokinase 213 U/L High 26-19 2 CK-MB Value Mass 4.0 NG/ML High <3.6 MB/CK Relative Index 1.88 Normal < Or =4 7 Troponin I 0.03 NG/ML Normal < 0.10 8 Laboratory test finding 03/01/2020 [facility] [address] [place] [address] [phone] Partial Thromboplastin Time 55.0 seconds High 24 .2-38.5 Prothrombin Time/Inr 03/01/2020 [facility] [address] [place] [address] [phone] Prothrombin Time 19.2 seconds High 12.5-14.3 Inr 1.58 Normal 9 CBC With Differential 03/01/[address] [address] [phone] White Blood Count 10.9 10 High 4.0-10.0 [...] 36.0-66.0 Lymph % 6.3 % Low 24.0-44.0 Saunders % 2.5 % Normal 0.0-5.0 Eos % 0.0 % Normal 0.0-3.0 Baso % 0.2 % Normal 0.0-1.0 Immature Granulocyte % 1.2 % Normal 0-3.0 Nucleated Red Blood Cell % 0.0 % Normal 0-0 Neutrophils # 9.8 10 High 1.5-8.5 Lymph # 0.7 10 Low 1.5-5.0 Saunders # 0.3 10 Normal 0.0-0.8 Eos # 0.0 10 Normal 0.0-0.5 Baso # 0.0 10 Normal 0.0-0.2 [facility] 02/29/[address] [address] [phone] Specimen Type Kidney Normal . Color Brown Normal . Size 4x7 mm Normal . 10 Weight 77 mg Normal . Composition (SEE NOTE) Normal . 11 CA Oxalate Dihy 80 % Normal . Hydroxyapatite 5 % Normal . Carbonate Apatite TNP Normal . Ca Ox Monohydrate 15 % Normal . CA Phosphate TNP Normal . MG Guille Phos TNP Normal . Uric Acid TNP Normal . Ua Dihydrate TNP Normal . Amm Acid Urate TNP Normal . Na Acid Urate TNP Normal . 2.8 Dihydroxyadenine TNP Normal . Xanthine TNP Normal . CA [place] Phos TNP Normal . Cystine TNP Normal [...] Normal . 15 Complete Blood Count 02/26/2020 [facility] Restorative Coordinator: Dr Jake Guajardo [place] [id number] [phone] WBC 5.2 x10*3/UL 4.1 - 10.9 RBC [...] 2.0 - 7.8 Laboratory test finding 02/26/2020 [facility] lissa Restorative Coordinator: Dr Jake [place]ardo [place] [id number] [phone] Magnesium 2.0 mg/dL 1.8 - 2.4 Basic Metabolic Panel 02/26/2020 [facility] Restorative Coordinator: Dr Jake [place] [address] [phone] Glucose 118 mg/dL High 74 - 99 [...] mL/min >60 18 Comprehensive Chem Profile 02/06/2020 [facility] Restorative Coordinator: Dr Jake [place]ardo [place] [address] [phone] Glucose 106 mg/dL High 74 - 99 [...] mL/min >60 20 Laboratory test finding 02/06/2020 [facility] Restorative Coordinator: [place] [address] [phone] Sed Rate 42 mm/hr High 0 - 15 Complete Blood Count 02/06/2020 [facility] slissa Restorative Coordinator: [place] [address] [phone] WBC 6.2 x10*3/UL 4.1 - 10.9 RBC [...] 2.0 - 7.8 Laboratory test finding 02/06/[address] [address] [phone] C Reactive Protein Quantitativ 1.09 mg/dL High 0 .00-0.30 Ua W/ Reflex To Culture 01/08/[address] [address] [phone] Appearance, Urine RFX CLOUDY High Clear Color, Urine RFX MAGGY Normal Yellow PH,Urine RFX 6.0 units Normal 5.0-9.0 Specific [place] Ur Auto RFX 1.013 Normal 1.002-1.035 Protein, [...] /LPF Normal 0-1 Cardiac Marker Panel 01/08/2020 [facility] enter [address] [place] [address] [phone] CPK Creatine Phosphokinase 813 U/L High 26-19 2 CK-MB Value Mass 5.8 NG/ML High <3.6 MB/CK Relative Index 0.71 Normal < Or =4 21 Troponin I 0.25 NG/ML High < 0.10 22 Liver Profile 01/08/2020 [facility] n[facility] [address] [place] [address] [phone] Ast/Sgot 66 U/L High 7-37 Alt/SGPT 35 U/L Normal 12-78 Alkaline Phosphatase 82 U/L Normal 45-117 Bilirubin,Total 2.9 mg/dL High 0.2-1.0 Bilirubin,Direct 0.6 mg/dL High 0.0-0.2 Total Protein 7.2 GM/DL Normal 6.4-8.2 Albumin 3.3 GM/DL Normal 3.2-5.2 Albumin/Globulin Ratio 0.8 Low 1.2-2.2 Basic Metabolic Profile 01/08/2020 [facility] [address] [place] [address] [phone] Glucose, Fasting 167 mg/dL High 70-100 Blood [...] mg/dL Normal 8.8-10.2 CBC With Differential 01/08/[address] [address] [phone] White Blood Count 16.1 10 High 4.0-10.0 [...] % 0.1 % High 0-0 Differential 01/08/2020 [facility] [address] [place], [place] [id number] [phone] Neutrophils 80 % High 28-66 Bands 12 % High < 11 Lymphocytes 5 % Low 16-44 Monocytes 2 % Normal 0-5 Metamyelocytes 1 % High 0-0 Macrocytosis 1+ Normal Dohle Bodies 1+ Normal Laboratory test finding 01/08/[address] [address] [phone] Platelet Estimate DECREASED Normal Normal NT-Pro BNP 45052 pg/mL High <450 Laboratory test finding 01/08/[address] [address] [phone] Lactic Acid Sepsis Protocol 4.9 mmol/L Critical high 0 .4-2.0 24 Complete Blood Count 12/11/2019 [facility] Restorative Coordinator: [place] [address] [phone] WBC 5.5 x10*3/UL 4.1 - 10.9 25 [...] 2.0 - 7.8 Basic Metabolic Panel 12/11/2019 [facility] Restorative Coordinator: [place] [address] [phone] Glucose 108 mg/dL High 74 - 99 [...] mL/min >60 27 Ua Dipstick Only 12/11/2019 [facility] , Restorative Coordinator: [place] [address] [phone] Urine Color YELLOW Yellow Urine Appearance TURBID Abnormal Clear Urine PH 8.0 units 5.0 - 9.0 Urine Specific [place] 1.010 1.005 - 1.030 Urine Leukocytes NEGATIVE Negative Urine Blood NEGATIVE Negative Urine Protein NEGATIVE Negative -Trace Urine Glucose NEGATIVE mg/dL Negative Urine Nitrite POSITIVE Abnormal Negative Urine Ketone NEGATIVE mg/dL Negative Urine Bilirubin NEGATIVE Negative Urine Urobilinogen 0.2 mg/dL 0.2 - 1.0 Microalbumin/Creatinine Urine 12/11/2019 [facility], Restorative Coordinator: [place] [address] [phone] Microalbumin Urine 18.6 mg/L 1.3 - 20.0 [...] pathogens. DISCLAIMER: Testing was performed using the [employer] SARS-CoV-2 test. This test was developed and its performance characteristics determined by [employer]. This test has not been FDA cleared [...] Little GFR Left ESRD GFR <15 on ARTIFICIAL LEATHER CALENDER OPERATOR 7 DIAGNOSIS CRITERIA MMB ng/ml Relative Index (RI) NON-AMI < or = 5 N/A RIOS ZONE > 5 < or = 4 AMI > 5 > 4 8 Troponin I Reference Interva l for [employer] LOCI: 99th Percentile= 0.00-0.045 ng/ml Risk Stratification: [...] . Physician questions regarding [facility] contact [employer] at: [phone]. 13 . Calculi report will follow via computer, mail or chronic disease epidemiologist delivery. 14 . This test was developed and its performance characteristics determined by [employer]. It has not been cleared or approved by the Food and Drug Administration. Performed at: [facility] [address] [place] [address] [address] [place] [id number] Restorative Coordinator: Ren Cheng MD, Phone: [phone] . Photograph will follow under a [...] LITTLE GFR LEFT ESRD GFR <15 ON ARTIFICIAL LEATHER CALENDER OPERATOR 19 100-125 mg/dL PRE-DIABET ES/FASTING >126 mg/dL DIABETES/FASTING 20 CHRONIC KIDNEY DISEASE STAGI NG PER NKF STAGE I & II GFR >= 60 NORMAL TO MILDLY DECREASED STAGE III GFR 30-59 MODERATELY DECREASED STAGE IV GFR 15-29 SEVERELY DECREASED STAGE V GFR <15 VERY LITTLE GFR LEFT ESRD GFR <15 ON ARTIFICIAL LEATHER CALENDER OPERATOR 21 DIAGNOSIS CRITERIA MMB ng/ml Relative Index (RI) NON-AMI < or = 5 N/A RIOS ZONE > 5 < or = 4 AMI > 5 > 4 22 Troponin I Reference Interva l for [employer] [place] LOCI: 99th Percentile= 0.00-0.045 ng/ml Risk Stratification: [...] Little GFR Left ESRD GFR <15 on ARTIFICIAL LEATHER CALENDER OPERATOR 24 Y/N query for Sepsis Lactate Rule: Y 25 NOTE: RESULT VERIFIED. 26 100-125 mg/dL PRE-DIABET ES/FASTING >126 mg/dL DIABETES/FASTING 27 CHRONIC KIDNEY DISEASE STAGI NG PER NKF STAGE I & II GFR >= 60 NORMAL TO MILDLY DECREASED STAGE III GFR 30-59 MODERATELY DECREASED STAGE IV GFR 15-29 SEVERELY DECREASED STAGE V GFR <15 VERY LITTLE GFR LEFT ESRD GFR <15 ON ARTIFICIAL LEATHER CALENDER OPERATOR Procedures Date Code Description Status 08/19/2016 [id number] Bone Mineral Density Test [facility] 11/12/2015 [id number] Mammogram Completed 11/06/2014 [id number] Mammogram Completed 11/05/2013 [id number] Bone Mineral Density Test [facility] 11/05/2013 [id number] Mammogram Completed 11/02/2012 [id number] Mammogram Completed 01/10/2012 [id number] Colonoscopy Completed 11/02/2011 [id number] Mammogram Completed 10/15/2011 [id number] Bone Mineral Density Test [facility] 10/20/2010 [id number] Mammogram Completed 10/13/2010 [id number] Mammogram Completed 10/08/2009 [id number] Mammogram Completed 10/07/2009 [id number] Bone Mineral Density Test [facility] 01/16/2001 [id number] Colonoscopy Completed Medical Devices Description No Information Available Encounters Type Date Location Provider Dx Diagnosis Office Visit 02/26/2020 10:[facility]a [facility] M.[facility]. 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 R29.6 Repeated falls A41.51 Sepsis due to Escherichia co li [E. coli] K80.00 Calculus of gallbladder w ac ely shoshone cholecyst w/o obstruction I10 Essential (primary) hyperten vy R60.0 Localized edema G35 Multiple sclerosis M19.90 Unspecified osteoarthritis, unspecified site M81.0 Age-related osteoporosis w/o current pathological fracture R19.7 Diarrhea, unspecified Office Visit 12/12/2019 10:45a [facility] M.D. I10 Essential (primary) hyperten vy E78.00 Pure hypercholesterolemia, u nspecified R60.0 Localized edema M81.0 Age-related osteoporosis w/o current pathological fracture R73.09 Other abnormal glucose R19.7 Diarrhea, unspecified G35 Multiple sclerosis Z85.3 Personal history of malignan t neoplasm of breast R32 Unspecified urinary incontin ence Z23 Encounter for immunization Assessments Date Code Description Provider 02/26/2020 Z01.810 Encounter for preprocedural card iovascular examination Sherri Akbar M.D. 02/26/2020 N20.0 Calculus of kidney Sherri massey M.D. 02/26/2020 I82.411 Acute embolism and thrombosis of right femoral vein Sherri Akbar M.D. 02/26/2020 I25.10 Atherosclerotic hear t disease of [place] coronary artery without angina pectoris Sherri Akbar M.D. 02/26/2020 I10 Essential (primary) hypertension Sherri Akbar M.D. 02/26/2020 E87.6 Hypokalemia Sherri leon M.D. 02/26/2020 R32 Unspecified urinary incontinence Sherri Akbar M.D. 02/26/2020 K58.0 Irritable bowel syndrome with di arrhea Sherri Akbar M.D. 02/26/2020 G35 Multiple sclerosis Sherri massey M.D. 02/26/2020 K80.00 Calculus of gallblad mirela with acute [...] 08/12/2020 10:10 am - Lab Schedule at [facility] * 08/13/2020 11:00 am - Sherri Akbar M.D. at [facility] * 08/13/2020 10:40 am [facility] 02/06/2020 - Sherri Akbar M.D.* R29.6 Repeated falls * A41.51 Sepsis due to Escherichia coli [E. coli] * K80.00 Calculus of gallbladder with acute cholecystitis without obstruction * I10 Essential (primary) hypertension * R60.0 Localized edema * G35 Multiple sclerosis * M19.90 Unspecified osteoarthritis, unspecified site * M81.0 Age-related osteoporosis without current pathological fracture * R19.7 Diarrhea, unspecified Functional Status Description No Information Available Mental Status Description No Information Available Referrals Description No Information Available
--- OUTSIDE RECORDS SUMMARY | 2020-04-29 14:49 | CCD | Continuity of Care Document ---
Author Author Paola DOUGLAS BATON TWIRLER Organization Unknown Address [address] [facility] [address] [place] [address] Phone [phone] Care Team Providers Care Supervisor Of Guidance And Testing Name Role Phone Sherri Akbar MD AUTM [phone] Melody Sidhu MD AUTM [phone] Erna Hill MD AUTM [phone] [facility] AUTM [phone] [facility] AUTM Problems Active Problems Provider Date Benign essential hypertension Sherri Akbar M.D. Onset: 01/17/2011 Pure hypercholesterolemia Sherri Akbar M.D. Onset: Personal history of primary malignant neoplasm of barbra st Sherri Akbar M.D. Onset: 01/17/2011 Multiple sclerosis Sherri Akbar M.D. Onset: 1 Neutropenia Sherri Akbar M.D. Onset: 1 Abnormal glucose level Sherri Akbar M.D. Onset: 2010 Osteochondropathy Sherri Akbar M.D. Onset: 1 Medications Care Home (Current) Use Sherri Akbar M.D. Onset: 01/17/2011 [...] Akbar M.D. 01/18/2011 Calcium 500+D High Potency [id number] Tablets 1 po bid Sherri Akbar M.D. 12/27 Garlic 500mg Capsules qd Sherri Akbar M.D. 01/18/2011 MV-One Capsules qd Sherri Akbar M.D. 09/01/2009 Vitamin D3 1000Unit Capsules 2 po qd Caro Luciano,SONDRA 09/01/2009 Travatan Z 0.004% Solution 1 gtt ou qhs Sherri Akbar M.D. 09/01/2009 Medications Administered in Office Medication SIG Qnty Indications Ordering Provider Date Administration Of Flu Vaccine Inj carolann Akbar M.D. 12/12/19 Administration Of Flu Vaccine Inj carolann Akbar M.D. 01/04/20 Administration Of Flu Vaccine Inj carolann Akbar M.D. 01/18/20 01 Immunizations CPT Code Status Date Vaccine Lot # [id number] Given 12/12/2019 Influenza Vaccin e Quadrivalent Preser/Antibiotic Free Im Use [id number] U-Flu Given 12/08/2018 Influenza,Unspecified 35131 Given 12/08/2018 Shingrix Zoster Vaccine (HZV), Recombinant, Subunit, Adjuvanted 99880 Given 10/05/2018 Shingrix Zoster Vaccine (HZV), Recombinant, Subunit, Adjuvanted U-Flu Given 12/19/2017 Influenza,Unspecified 82278 Given 08/11/2016 Tetanus/Diptheria(Td)Toxoids Preservative Free [id number] U-PneuC Given 02/04/2016 Prevnar 13 78651 Given 10/14/2011 Zoster Vaccine [id number] 10171 Given 01/03/2002 Influenza Virus Vaccine 10836 Given 01/17/2001 Influenza Virus Vaccine 21042 Given 03/04/2000 Influenza Virus Vaccine 91815 Given 01/05/1999 Influenza Virus Vaccine Vital Signs [...] Note Influenza A/B RSV Covid Amp 03/01/2020 [facility] [address] [place] [address] [phone] Influenza A Amplification NEGATIVE Normal Negati ve 1 Influenza B Amplification NEGATIVE Normal Negative 2 RSV Amplification NEGATIVE Normal Negative 3 Sars Covid-19 Amplification NEGATIVE Normal Negative 4 Laboratory test finding 03/01/2020 [facility] [address] [place] [address] [phone] Antibody Identification Anti-K Normal Type & Screen -Incl Blood Type,Marshal,AB SC 03/01/2020 [facility] [address] [place] [address] [phone] Blood Type A POSITIVE Normal AB Screen (Indirect Aranza)Vis POSITIVE Normal Ua W/ Reflex To Culture 03/01/[address] [address] [phone] Appearance, Urine RFX CLOUDY High Clear Color, Urine RFX RED High Yellow PH,Urine RFX 6.0 units Normal 5.0-9.0 Specific [place] Ur Auto RFX 1.014 Normal 1.002-1.035 Protein, [...] SMALL High Negative Arterial Blood Gas 03/01/2020 [facility] nter [address] [place] [address] [phone] ABG pH (Arterial) 7.501 units High 7.350-7.450 ABG Partial Pressure Co2 40.3 mmHg Normal 35.0-45.0 ABG Partial Pressure O2 85.0 mmHg Normal 75.0-100.0 ABG Total Co2 32.0 mEq/L High 23.0-31.0 ABG Hco3 30.8 mEq/L High 22.0-26.0 ABG Base Excess 7.1 High -2.0-2.0 ABG Standard Hco3 30.9 mEq/L High 22.0-26.0 ABG O2 Saturation 97.0 % Normal 95.0-99.0 Laboratory test finding 03/01/2020 [facility] [address] [place] [address] [phone] Amylase 27 U/L Normal 25-115 Lipase 38 U/L Low 73-393 Lactic Acid Sepsis Protocol 2.2 mmol/L Critical high 0.4-2.0 5 NT-Pro BNP 3257 pg/mL High <450 Basic Metabolic Profile 03/01/2020 [facility] [address] [place] [address] [phone] Glucose, Fasting 161 mg/dL High 70-100 Blood [...] 9.4 mg/dL Normal 8.8-10.2 Liver Profile 03/01/2020 [facility] nter [address] [place] [address] [phone] Ast/Sgot 19 U/L Normal 7-37 Alt/SGPT 15 U/L Normal 12-78 Alkaline Phosphatase 85 U/L Normal 45-117 Bilirubin,Total 1.1 mg/dL High 0.2-1.0 Bilirubin,Direct 0.3 mg/dL High 0.0-0.2 Total Protein 7.5 GM/DL Normal 6.4-8.2 Albumin 2.9 GM/DL Low 3.2-5.2 Albumin/Globulin Ratio 0.6 Low 1.2-2.2 Cardiac Marker Panel 03/01/2020 [facility] enter [address] [place] [address] [phone] CPK Creatine Phosphokinase 213 U/L High 26-19 2 CK-MB Value Mass 4.0 NG/ML High <3.6 MB/CK Relative Index 1.88 Normal < Or =4 7 Troponin I 0.03 NG/ML Normal < 0.10 8 Laboratory test finding 03/01/2020 [facility] [address] [place] [address] [phone] Partial Thromboplastin Time 55.0 seconds High 24 .2-38.5 Prothrombin Time/Inr 03/01/2020 [facility] enter [address] [place] [address] [phone] Prothrombin Time 19.2 seconds High 12.5-14.3 Inr 1.58 Normal 9 CBC With Differential 03/01/[address] [address] [phone] White Blood Count 10.9 10 High 4.0-10.0 [...] 36.0-66.0 Lymph % 6.3 % Low 24.0-44.0 [place] % 2.5 % Normal 0.0-5.0 Eos % 0.0 % Normal 0.0-3.0 Baso % 0.2 % Normal 0.0-1.0 Immature Granulocyte % 1.2 % Normal 0-3.0 Nucleated Red Blood Cell % 0.0 % Normal 0-0 Neutrophils # 9.8 10 High 1.5-8.5 Lymph # 0.7 10 Low 1.5-5.0 [place] # 0.3 10 Normal 0.0-0.8 Eos # 0.0 10 Normal 0.0-0.5 Baso # 0.0 10 Normal 0.0-0.2 [facility] 02/29/[address] [address] [phone] Specimen Type Kidney Normal . Color Brown [...] Normal . Xanthine TNP Normal . CA [place] Phos TNP Normal . Cystine TNP Normal [...] Normal . 15 Complete Blood Count 02/26/2020 [place] [employer] [facility] [facility] Loop Cutter: [place] [address] [phone] WBC 5.2 x10*3/UL 4.1 - 10.9 RBC [...] 2.0 - 7.8 Laboratory test finding 02/26/2020 [place] lissa Sutherland Loop Cutter: Dr Jake Guajardo [place], [place] [address] [phone] Magnesium 2.0 mg/dL 1.8 - 2.4 Basic Metabolic Panel 02/26/2020 [place] lissa Yang Loop Cutter: Dr Jake [place] [address] [phone] Glucose 118 mg/dL High 74 - 99 [...] mL/min >60 18 Comprehensive Chem Profile 02/06/2020 [place] lissa Vargas Loop Cutter: Dr Jake Guajardo [place], [place] [address] [phone] Glucose 106 mg/dL High 74 - 99 [...] mL/min >60 20 Laboratory test finding 02/06/2020 [place] [facility] Loop Cutter: [place] [address] [phone] Sed Rate 42 mm/hr High 0 - 15 Complete Blood Count 02/06/2020 [place] [employer] lissa hankins Loop Cutter: [place] [address] [phone] WBC 6.2 x10*3/UL 4.1 - 10.9 RBC [...] 2.0 - 7.8 Laboratory test finding 02/06/[address] [address] [phone] C Reactive Protein Quantitativ 1.09 mg/dL High 0 .00-0.30 Ua W/ Reflex To Culture 01/08/[address] [address] [phone] Appearance, Urine RFX CLOUDY High Clear Color, Urine RFX MAGGY Normal Yellow PH,Urine RFX 6.0 units Normal 5.0-9.0 Specific [place] Ur Auto RFX 1.013 Normal 1.002-1.035 Protein, [...] 01/08/2020 [facility] enter [address] [place] [address] [phone] CPK Creatine Phosphokinase 813 U/L High 26-19 2 CK-MB Value Mass 5.8 NG/ML High <3.6 MB/CK Relative Index 0.71 Normal < Or =4 21 Troponin I 0.25 NG/ML High < 0.10 22 Liver Profile 01/08/2020 [facility] Ce nter [address] [place] [address] [phone] Ast/Sgot 66 U/L High 7-37 Alt/SGPT 35 U/L Normal 12-78 Alkaline Phosphatase 82 U/L Normal 45-117 Bilirubin,Total 2.9 mg/dL High 0.2-1.0 Bilirubin,Direct 0.6 mg/dL High 0.0-0.2 Total Protein 7.2 GM/DL Normal 6.4-8.2 Albumin 3.3 GM/DL Normal 3.2-5.2 Albumin/Globulin Ratio 0.8 Low 1.2-2.2 Basic Metabolic Profile 01/08/2020 [facility] Center [address] [place] [address] [phone] Glucose, Fasting 167 mg/dL High 70-100 Blood [...] mg/dL Normal 8.8-10.2 CBC With Differential 01/08/2020 [place] [id number] [phone] White Blood Count 16.1 10 High 4.0-10.0 [...] % 0.1 % High 0-0 Differential 01/08/2020 [facility] nter [address] [place] [address] [phone] Neutrophils 80 % High 28-66 Bands 12 % High < 11 Lymphocytes 5 % Low 16-44 Monocytes 2 % Normal 0-5 Metamyelocytes 1 % High 0-0 Macrocytosis 1+ Normal Dohle Bodies 1+ Normal Laboratory test finding 01/08/[address] [address] [phone] Platelet Estimate DECREASED Normal Normal NT-Pro BNP 69975 pg/mL High <450 Laboratory test finding 01/08/2020 [place] [id number] [phone] Lactic Acid Sepsis Protocol 4.9 mmol/L Critical high 0 .4-2.0 24 Complete Blood Count 12/11/2019 [place] [facility] Loop Cutter: [place] [address] [phone] WBC 5.5 x10*3/UL 4.1 - 10.9 25 [...] 2.0 - 7.8 Basic Metabolic Panel 12/11/2019 [place] [facility] Loop Cutter: [place] [address] [phone] Glucose 108 mg/dL High 74 - 99 [...] mL/min >60 27 Ua Dipstick Only 12/11/2019 [facility] , Loop Cutter: Dr Jake Gu[place] [address] [phone] Urine Color YELLOW Yellow Urine Appearance TURBID Abnormal Clear Urine PH 8.0 units 5.0 - 9.0 Urine Specific [place] 1.010 1.005 - 1.030 Urine Leukocytes NEGATIVE Negative Urine Blood NEGATIVE Negative Urine Protein NEGATIVE Negative -Trace Urine Glucose NEGATIVE mg/dL Negative Urine Nitrite POSITIVE Abnormal Negative Urine Ketone NEGATIVE mg/dL Negative Urine Bilirubin NEGATIVE Negative Urine Urobilinogen 0.2 mg/dL 0.2 - 1.0 Microalbumin/Creatinine Urine 12/11/2019 [facility], Loop Cutter: Dr Jake [place] [address] [phone] Microalbumin Urine 18.6 mg/L 1.3 - 20.0 [...] pathogens. DISCLAIMER: Testing was performed using the [employer] SARS-CoV-2 test. This test was developed and its performance characteristics determined by [employer]. This test has not been FDA cleared [...] Little GFR Left ESRD GFR <[address] IN TELLER 7 DIAGNOSIS CRITERIA MMB ng/ml Relative Index (RI) NON-AMI < or = 5 N/A RIOS ZONE > 5 < or = 4 AMI > 5 > 4 8 Troponin I Reference Interva l for [employer] [place] LOCI: 99th Percentile= 0.00-0.045 ng/ml Risk Stratification: [...] . Physician questions regarding [facility] contact [facility] at: [phone]. 13 . Calculi report will follow via computer, mail or police guard delivery. 14 . This test was developed and its performance characteristics determined by [facility]. It has not been cleared or approved by the Food and Drug Administration. Performed at: [facility] [address] [place] [address] [place] [id number] Loop Cutter: Ren Cheng MD, Phone: [phone] . Photograph will follow under a [...] LITTLE GFR LEFT ESRD GFR <[address] IN TELLER 19 100-125 mg/dL PRE-DIABET ES/FASTING >126 mg/dL DIABETES/FASTING 20 CHRONIC KIDNEY DISEASE STAGI NG PER NKF STAGE I & II GFR >= 60 NORMAL TO MILDLY DECREASED STAGE III GFR 30-59 MODERATELY DECREASED STAGE IV GFR 15-29 SEVERELY DECREASED STAGE V GFR <15 VERY LITTLE GFR LEFT ESRD GFR <[address] IN TELLER 21 DIAGNOSIS CRITERIA MMB ng/ml Relative Index (RI) NON-AMI < or = 5 N/A RIOS ZONE > 5 < or = 4 AMI > 5 > 4 22 Troponin I Reference Interva l for [employer] [place] LOCI: 99th Percentile= 0.00-0.045 ng/ml Risk Stratification: [...] Little GFR Left ESRD GFR <[address] IN TELLER 24 Y/N query for Sepsis Lactate Rule: Y 25 NOTE: RESULT VERIFIED. 26 100-125 mg/dL PRE-DIABET ES/FASTING >126 mg/dL DIABETES/FASTING 27 CHRONIC KIDNEY DISEASE STAGI NG PER NKF STAGE I & II GFR >= 60 NORMAL TO MILDLY DECREASED STAGE III GFR 30-59 MODERATELY DECREASED STAGE IV GFR 15-29 SEVERELY DECREASED STAGE V GFR <15 VERY LITTLE GFR LEFT ESRD GFR <[address] IN TELLER Procedures Date Code Description Status 08/19/2016 [id number] Bone Mineral Density Test [facility] 11/12/2015 [id number] Mammogram Completed 11/06/2014 [id number] Mammogram Completed 11/05/2013 [id number] Bone Mineral Density Test [facility] 11/05/2013 [id number] Mammogram Completed 11/02/2012 [id number] Mammogram Completed 01/10/2012 [id number] Colonoscopy Completed 11/02/2011 [id number] Mammogram Completed 10/15/2011 [id number] Bone Mineral Density Test [facility] 10/20/2010 [id number] Mammogram Completed 10/13/2010 [id number] Mammogram Completed 10/08/2009 [id number] Mammogram Completed 10/07/2009 [id number] Bone Mineral Density Test [facility] 01/16/2001 [id number] Colonoscopy Completed Medical Devices Description No Information Available Encounters Type Date Location Provider Dx Diagnosis Office Visit 02/26/2020 10:00a [facility], Steven Akbar M.D. 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 R29.6 Repeated falls A41.51 Sepsis due to Escherichia co li [E. coli] K80.00 Calculus of gallbladder w ac torres martinez cholecyst w/o obstruction I10 Essential (primary) hyperten vy R60.0 Localized edema G35 Multiple sclerosis M19.90 Unspecified osteoarthritis, unspecified site M81.0 Age-related osteoporosis w/o current pathological fracture R19.7 Diarrhea, unspecified Office Visit 12/12/2019 10:45a [place] [facility] I10 Essential (primary) hyperten vy E78.00 Pure hypercholesterolemia, u nspecified R60.0 Localized edema M81.0 Age-related osteoporosis w/o current pathological fracture R73.09 Other abnormal glucose R19.7 Diarrhea, unspecified G35 Multiple sclerosis Z85.3 Personal history of malignan t neoplasm of breast R32 Unspecified urinary incontin ence Z23 Encounter for immunization Assessments Date Code Description Provider 03/14/2020 M62.81 Muscle weakness (generalized) SONDRA Valencia 03/14/2020 G35 Multiple sclerosis SONDRA العراقي 03/14/2020 I10 Essential (primary) hypertension SONDRA العراقي 03/14/2020 R29.6 Repeated falls Barb Douglas, F ASSISTANT FOOD SERVICE DIRECTOR 03/14/2020 N20.0 Calculus of kidney SONDRA العراقي 02/26/2020 Z01.810 Encounter for preprocedural card iovascular examination Sherri Akbar M.D. 02/26/2020 N20.0 Calculus of kidney Sherri massey M.D. 02/26/2020 I82.411 Acute embolism and thrombosis of right femoral vein Sherri Akbar M.D. 02/26/2020 I25.10 Atherosclerotic hear t disease of [place] coronary artery without angina pectoris Sherri Akbar [...] 08/12/2020 10:10 am - Lab Schedule at [facility] * 08/13/2020 11:00 am - Sherri Akbar M.D. at [facility] * 08/13/2020 10:40 am - Nurse #2 at [facility] 03/14/2020 - SONDRA العراقي* M62.81 Muscle weakness (generalized)* Comments: * Hx of Rhabdomyolysis and was hospitalized 12/2019, and again with this hospital stay with continued deconditioning and progressive weakness. Order sent for hospital bed for the home. * G35 Multiple sclerosis* Comments:* Order sent for hospital bed for [...]
--- OUTSIDE RECORDS SUMMARY | 2020-04-29 14:50 | CCD ---
Author Author [facility] Organization [facility] Address Unknown Phone Unavailable Care Team Providers Care Assistant Film Editor Name Role Phone Tapan Hansen Unavailable PROBLEMS Type Condition ICD9-CM Code [id number] Code Onset Dates Condition S tatus SNOMED Code Notes Problem Left ureteral stone N20.1 Active 44947461 Problem Acute pyelonephritis N10 Active 29155279 ALLERGIES No Known Allergies ENCOUNTERS from 1935 to 2020-02-27 Encounter Location Date Provider Diagnosis [facility] [address] [place] [address] Feb, Tapan Hansen IMMUNIZATIONS No Information SOCIAL HISTORY Tobacco Use: Social History Observation Description Date Details (start date - stop date) Never Smoker Sex Assigned At : Social History Observation Description Sex Assigned At Unknown Language: Question Answer Notes Languages spoken: Stateless Yazidi: Question Answer Notes Yazidi No religion beliefs that would impact health care. Sexual [...] Notes Start Da te End Date Status Diflucan 150 MG 1 tablet Orally as directed- 1 tab now and repea t in 3 days Feb, Active AmLODIPine Besylate 5 MG 1 tablet Orally Once a day for 30 day(s) Active Oxybutynin Chloride 5 MG 1 tablet Orally Twice a day for 30 day(s) Active Potassium Chloride ER 10 MEQ 1 tablet with food Orally Twice a day for 30 day(s) Active Gabapentin 300 MG 1 capsule Orally Once a day for 30 day(s) Active Pravastatin Sodium 20 MG 1 tablet Orally Once a day for 30 day(s) Active Aspirin 81 81 MG 1 tablet Orally Once a day for 30 day(s) Active Diphenoxylate-Atropine 2.5-0.025 MG 1 tablet as needed Orall y Four times a day Active Losartan Potassium 100 MG 1 tablet Orally Once a day for 30 day(s) Active Nitrofurantoin Macrocrystal 50 MG 1 cap Orally Daily FOR 30 DAYS Jan, Feb, Active Travatan Z 0.004 % 1 drop into affected eye in the evening Ophthalmic Once a day Active Dorzolamide-Timolol Activ e PROCEDURES No Information RESULTS No Results REASON FOR VISIT yeast infection MEDICAL (GENERAL) HISTORY Type Description Date Medical History [facility] Medical History KIDNEY STONE Surgical History HYSTERECTOMY [...] days Feb, Next Appt Details Provider Name:Tapan Hansen, 2020-03-13 09:30:00 AM, [address], [place], [address], Insurance Providers Payer Name Payer Address Payer Phone Insured Name Patient Relati onship to Insured Coverage Start Date Coverage End Date MEDICARE Part A and B [address] [facility] [phone] RICCARDO SAMUELS R [facility] [address] [address] [facility] [id number] RICCARDO SAMUELS
--- OUTSIDE RECORDS SUMMARY | 2020-04-29 14:50 | CCD | Continuity of Care Document ---
Author Author Paola Akbar M.D. Organization Unknown Address [address] [place] [address] Phone [phone] Care Team Providers Care Social Work Case Manager Name Role Phone Sherri Akbar MD AUTM [phone] Melody Sidhu MD AUTM [phone] Erna Hill MD AUTM [phone] [facility] AUTM [phone] [facility] AUTM [phone] Problems Active Problems Provider Date Benign essential hypertension Sherri Akbar M.D. Onset: 01/17/2011 Pure hypercholesterolemia Sherri Akbar M.D. Onset: Personal history of primary malignant neoplasm of [place] Sherri kAbar M.D. Onset: 01/17/2011 Multiple sclerosis Sherri Akbar [...] Akbar M.D. 01/18/2011 Calcium 500+D High Potency [id number] Tablets 1 po bid Sherri Akbar M.D. 12/27 Garlic 500mg Capsules qd Sherri Akbar M.D. 01/18/2011 MV-One Capsules qd Sherri Akbar M.D. 09/01/2009 Vitamin D3 1000Unit Capsules 2 po qd Caro Luciano,SPECIAL EFFECTS PERSON 09/01/2009 Travatan Z 0.004% Solution 1 gtt [...] CPT Code Status Date Vaccine Lot # [id number] Given 12/12/2019 Influenza Vaccin e Quadrivalent Preser/Antibiotic Free Im Use [id number] U-Flu Given 12/08/2018 Influenza,Unspecified 43840 Given 12/08/2018 Shingrix Zoster Vaccine (HZV), Recombinant, Subunit, Adjuvanted 49420 Given 10/05/2018 Shingrix Zoster Vaccine (HZV), Recombinant, Subunit, Adjuvanted U-Flu Given 12/19/2017 Influenza,Unspecified 44685 Given 08/11/2016 Tetanus/Diptheria(Td)Toxoids Preservative Free [id number] U-PneuC Given 02/04/2016 Prevnar 13 11003 Given 10/14/2011 Zoster Vaccine [id number] 18799 Given 01/03/2002 Influenza Virus Vaccine 72361 Given 01/17/2001 Influenza Virus Vaccine 44559 Given 03/04/2000 Influenza Virus Vaccine 61329 Given 01/05/1999 Influenza Virus Vaccine Vital Signs [...] Note Influenza A/B RSV Covid Amp 03/01/2020 [place] [id number] [phone] Influenza A Amplification NEGATIVE Normal Negati ve 1 Influenza B Amplification NEGATIVE Normal Negative 2 RSV Amplification NEGATIVE Normal Negative 3 Sars Covid-19 Amplification NEGATIVE Normal Negative 4 Laboratory test finding 03/01/2020 [facility] [address] [place] [address] [phone] Antibody Identification Anti-K Normal Type & Screen -Incl Blood Type,Marshal,AB SC 03/01/[address] [address] [phone] Blood Type A POSITIVE Normal AB Screen (Indirect Aranza)Vis POSITIVE Normal Ua W/ Reflex To Culture 03/01/[address] [address] [phone] Appearance, Urine RFX CLOUDY High Clear Color, Urine RFX RED High Yellow PH,Urine RFX 6.0 units Normal 5.0-9.0 Specific Odum Ur Auto RFX 1.014 Normal 1.002-1.035 Protein, [...] SMALL High Negative Arterial Blood Gas 03/01/2020 [facility] nter [address] [place] [address] [phone] ABG pH (Arterial) 7.501 units High 7.350-7.450 ABG Partial Pressure Co2 40.3 mmHg Normal 35.0-45.0 ABG Partial Pressure O2 85.0 mmHg Normal 75.0-100.0 ABG Total Co2 32.0 mEq/L High 23.0-31.0 ABG Hco3 30.8 mEq/L High 22.0-26.0 ABG Base Excess 7.1 High -2.0-2.0 ABG Standard Hco3 30.9 mEq/L High 22.0-26.0 ABG O2 Saturation 97.0 % Normal 95.0-99.0 Laboratory test finding 03/01/2020 [facility] [address] [place] [address] [phone] Amylase 27 U/L Normal 25-115 Lipase 38 U/L Low 73-393 Lactic Acid Sepsis Protocol 2.2 mmol/L Critical high 0.4-2.0 5 NT-Pro BNP 3257 pg/mL High <450 Basic Metabolic Profile 03/01/2020 [facility] [address] [place] [address] [phone] Glucose, Fasting 161 mg/dL High 70-100 Blood [...] 9.4 mg/dL Normal 8.8-10.2 Liver Profile 03/01/2020 [facility] [address]ter [address] [place] [address] [phone] Ast/Sgot 19 U/L Normal 7-37 Alt/SGPT 15 U/L Normal 12-78 Alkaline Phosphatase 85 U/L Normal 45-117 Bilirubin,Total 1.1 mg/dL High 0.2-1.0 Bilirubin,Direct 0.3 mg/dL High 0.0-0.2 Total Protein 7.5 GM/DL Normal 6.4-8.2 Albumin 2.9 GM/DL Low 3.2-5.2 Albumin/Globulin Ratio 0.6 Low 1.2-2.2 Cardiac Marker Panel 03/01/2020 [facility] C enter [address] [place] [address] [phone] CPK Creatine Phosphokinase 213 U/L High 26-19 2 CK-MB Value Mass 4.0 NG/ML High <3.6 MB/CK Relative Index 1.88 Normal < Or =4 7 Troponin I 0.03 NG/ML Normal < 0.10 8 Laboratory test finding 03/01/2020 [facility] [address] [place] [address] [phone] Partial Thromboplastin Time 55.0 seconds High 24 .2-38.5 Prothrombin Time/Inr 03/01/2020 [facility] enter [address] [place] [address] [phone] Prothrombin Time 19.2 seconds High 12.5-14.3 Inr 1.58 Normal 9 CBC With Differential 03/01/[address] [address] [phone] White Blood Count 10.9 10 High 4.0-10.0 [...] 36.0-66.0 Lymph % 6.3 % Low 24.0-44.0 [place] % 2.5 % Normal 0.0-5.0 Eos % 0.0 % Normal 0.0-3.0 Baso % 0.2 % Normal 0.0-1.0 Immature Granulocyte % 1.2 % Normal 0-3.0 Nucleated Red Blood Cell % 0.0 % Normal 0-0 Neutrophils # 9.8 10 High 1.5-8.5 Lymph # 0.7 10 Low 1.5-5.0 [place] # 0.3 10 Normal 0.0-0.8 Eos # 0.0 10 Normal 0.0-0.5 Baso # 0.0 10 Normal 0.0-0.2 Complete Blood Count 02/26/2020 [facility] Software Tools Developer: [place] [address] [phone] WBC 5.2 x10*3/UL 4.1 - 10.9 RBC [...] 2.0 - 7.8 Laboratory test finding 02/26/2020 [facility] Software Tools Developer: [place] [address] [phone] Magnesium 2.0 mg/dL 1.8 - 2.4 Basic Metabolic Panel 02/26/2020 [facility] Software Tools Developer: [place] [address] [phone] Glucose 118 mg/dL High 74 - 99 10 BUN 6 mg/dL Low 7 - 18 Creatinine 0.7 mg/dL 0.6 - 1.3 Sodium 143 mEq/L 136 - 145 Potassium 3.1 mEq/L Low 3.5 - 5.1 11 Chloride 103 mEq/L 98 - 107 Carbon Dioxide 29 mEq/L 21 - 32 Calcium 9.6 mg/dL 8.5 - 10.1 GFR >= 60 mL/min >60 GFR >= 60 mL/min >60 12 Comprehensive Chem Profile 02/06/2020 [facility] Software Tools Developer: [place] [address] [phone] Glucose 106 mg/dL High 74 - 99 13 BUN 13 mg/dL 7 - 18 Creatinine [...] mL/min >60 GFR >= 60 mL/min >60 14 Laboratory test finding 02/06/2020 [facility] Software Tools Developer: [place] [address] [phone] Sed Rate 42 mm/hr High 0 - 15 Complete Blood Count 02/06/2020 [facility] Software Tools Developer: Dr Jake [place] [id number] [phone] WBC 6.2 x10*3/UL 4.1 - 10.9 RBC [...] 2.0 - 7.8 Laboratory test finding 02/06/2020 [facility] [address] [place] [address] [phone] C Reactive Protein Quantitativ 1.09 mg/dL High 0 .00-0.30 Ua W/ Reflex To Culture 01/08/2020 [place] [address] [place] [address] [phone] Appearance, Urine RFX CLOUDY High Clear Color, Urine RFX MAGGY Normal Yellow PH,Urine RFX 6.0 units Normal 5.0-9.0 Specific Odum Ur Auto RFX 1.013 Normal 1.002-1.035 Protein, [...] /LPF Normal 0-1 Cardiac Marker Panel 01/08/2020 [facility] C enter [address] [place] [address] [phone] CPK Creatine Phosphokinase 813 U/L High 26-19 2 CK-MB Value Mass 5.8 NG/ML High <3.6 MB/CK Relative Index 0.71 Normal < Or =4 15 Troponin I 0.25 NG/ML High < 0.10 16 Liver Profile 01/08/2020 [facility] Ce nter [address] [place] [address] [phone] Ast/Sgot 66 U/L High 7-37 Alt/SGPT 35 U/L Normal 12-78 Alkaline Phosphatase 82 U/L Normal 45-117 Bilirubin,Total 2.9 mg/dL High 0.2-1.0 Bilirubin,Direct 0.6 mg/dL High 0.0-0.2 Total Protein 7.2 GM/DL Normal 6.4-8.2 Albumin 3.3 GM/DL Normal 3.2-5.2 Albumin/Globulin Ratio 0.8 Low 1.2-2.2 Basic Metabolic Profile 01/08/2020 [facility] [address] [place] [address] [phone] Glucose, Fasting 167 mg/dL High 70-100 Blood Urea Nitrogen 22 mg/dL High 7-18 Creatinine For GFR 1.21 mg/dL Normal 0.55-1.30 Glomerular Filtration Rate 45.1 Normal >32 1 7 Sodium Level 142 mEq/L Normal 136-145 Potassium Serum 3.7 mEq/L Normal 3.5-5.1 Chloride Level 109 mEq/L High 98-107 Carbon Dioxide Level 23 mEq/L Normal 21-32 Anion Gap 10 mEq/L Normal 8-16 Calcium Level 9.9 mg/dL Normal 8.8-10.2 CBC With Differential 01/08/[address] [address] [phone] White Blood Count 16.1 10 High 4.0-10.0 [...] % 0.1 % High 0-0 Differential 01/08/2020 [facility] nter [address] [place] [address] [phone] Neutrophils 80 % High 28-66 Bands 12 % High < 11 Lymphocytes 5 % Low 16-44 Monocytes 2 % Normal 0-5 Metamyelocytes 1 % High 0-0 Macrocytosis 1+ Normal Dohle Bodies 1+ Normal Laboratory test finding 01/08/2020 [place] [address] [phone] Platelet Estimate DECREASED Normal Normal NT-Pro BNP 06745 pg/mL High <450 Laboratory test finding 01/08/2020 [place] [address] [place] [address] [phone] Lactic Acid Sepsis Protocol 4.9 mmol/L Critical high 0 .4-2.0 18 Complete Blood Count 12/11/2019 [facility] Software Tools Developer: [place] [address] [phone] WBC 5.5 x10*3/UL 4.1 - 10.9 19 RBC 4.43 x10*6/UL 4.20 - 6.30 Hemoglobin [...] 2.0 - 7.8 Basic Metabolic Panel 12/11/2019 [facility] Software Tools Developer: [place] [address] [phone] Glucose 108 mg/dL High 74 - 99 20 BUN 15 mg/dL 7 - 18 Creatinine 0.7 mg/dL 0.6 - 1.3 Sodium 141 mEq/L 136 - 145 Potassium 4.4 mEq/L 3.5 - 5.1 Chloride 105 mEq/L 98 - 107 Carbon Dioxide 23 mEq/L 21 - 32 Calcium 9.5 mg/dL 8.5 - 10.1 GFR >= 60 mL/min >60 GFR >= 60 mL/min >60 21 Ua Dipstick Only 12/11/2019 [facility] Software Tools Developer: Dr Jake Guajardo [place], [place] [id number] [phone] Urine Color YELLOW Yellow Urine Appearance TURBID Abnormal Clear Urine PH 8.0 units 5.0 - 9.0 Urine Specific Odum 1.010 1.005 - 1.030 Urine Leukocytes NEGATIVE Negative Urine Blood NEGATIVE Negative Urine Protein NEGATIVE Negative -Trace Urine Glucose NEGATIVE mg/dL Negative Urine Nitrite POSITIVE Abnormal Negative Urine Ketone NEGATIVE mg/dL Negative Urine Bilirubin NEGATIVE Negative Urine Urobilinogen 0.2 mg/dL 0.2 - 1.0 Microalbumin/Creatinine Urine 12/11/2019 [facility] Software Tools Developer: Dr Jake Guajardo [place], [place] [id number] [phone] Microalbumin Urine 18.6 mg/L 1.3 - 20.0 [...] pathogens. DISCLAIMER: Testing was performed using the [employer] SARS-CoV-2 test. This test was developed and its performance characteristics determined by [employer]. This test has not been FDA cleared [...] Little GFR Left ESRD GFR <15 on CHIEF INFORMATION OFFICER 7 DIAGNOSIS CRITERIA MMB ng/ml Relative Index (RI) NON-AMI < or = 5 N/A RIOS ZONE > 5 < or = 4 AMI > 5 > 4 8 Troponin I Reference Interva l for [place] LOCI: 99th Percentile= 0.00-0.045 ng/ml Risk Stratification: [...] RISK) 2.5-3.5 RECURRENT MYOCARDIAL INFARCTION 2.5-3.5 10 100-125 mg/dL PRE-DIABET ES/FASTING >126 mg/dL DIABETES/FASTING 11 NOTE: RESULT VERIFIED. 12 CHRONIC KIDNEY DISEASE STAGI NG PER NKF STAGE I & II GFR >= 60 NORMAL TO MILDLY DECREASED STAGE III GFR 30-59 MODERATELY DECREASED STAGE IV GFR 15-29 SEVERELY DECREASED STAGE V GFR <15 VERY LITTLE GFR LEFT ESRD GFR <15 ON CHIEF INFORMATION OFFICER 13 100-125 mg/dL PRE-DIABET ES/FASTING >126 mg/dL DIABETES/FASTING 14 CHRONIC KIDNEY DISEASE STAGI NG PER NKF STAGE I & II GFR >= 60 NORMAL TO MILDLY DECREASED STAGE III GFR 30-59 MODERATELY DECREASED STAGE IV GFR 15-29 SEVERELY DECREASED STAGE V GFR <15 VERY LITTLE GFR LEFT ESRD GFR <15 ON CHIEF INFORMATION OFFICER 15 DIAGNOSIS CRITERIA MMB ng/ml Relative Index (RI) NON-AMI < or = 5 N/A RIOS ZONE > 5 < or = 4 AMI > 5 > 4 16 Troponin I Reference Interva l for [place] LOCI: 99th Percentile= 0.00-0.045 ng/ml Risk Stratification: <= 0.10 ng/ml Decreased Risk for Adverse Clinical Events. 0.10-1.50 ng/ml Increased Risk for Adv erse Clinical Events. Evaluation of additional criterion and/or repeat testing in 2-6 hours is suggested to rule out myocardial damage. >= 1.50 ng/ml Indicative of Myocardial Injury. 17 Units are mL/min/1.73 m2 Chronic Kidney Disease Staging per NKF: Stage I & II GFR >=60 Normal to Mildly Decreased Stage III GFR 30-59 Moderately Decreased Stage IV GFR 15-29 Severely Decreased Stage V GFR <15 Very Little GFR Left ESRD GFR <15 on CHIEF INFORMATION OFFICER 18 Y/N query for Sepsis Lactate Rule: Y 19 NOTE: RESULT VERIFIED. 20 100-125 mg/dL PRE-DIABET ES/FASTING >126 mg/dL DIABETES/FASTING 21 CHRONIC KIDNEY DISEASE STAGI NG PER NKF STAGE I & II GFR >= 60 NORMAL TO MILDLY DECREASED STAGE III GFR 30-59 MODERATELY DECREASED STAGE IV GFR 15-29 SEVERELY DECREASED STAGE V GFR <15 VERY LITTLE GFR LEFT ESRD GFR <15 ON CHIEF INFORMATION OFFICER Procedures Date Code Description Status 08/19/2016 [id number] Bone Mineral Density Test Comple [facility] 11/12/2015 [id number] Mammogram Completed 11/06/2014 [id number] Mammogram Completed 11/05/2013 [id number] Bone Mineral Density Test Comple [facility] 11/05/2013 [id number] Mammogram Completed 11/02/2012 [id number] Mammogram Completed 01/10/2012 [id number] Colonoscopy Completed 11/02/2011 [id number] Mammogram Completed 10/15/2011 [id number] Bone Mineral Density Test Comple [facility] 10/20/2010 [id number] Mammogram Completed 10/13/2010 [id number] Mammogram Completed 10/08/2009 [id number] Mammogram Completed 10/07/2009 [id number] Bone Mineral Density Test [facility] 01/16/2001 [id number] Colonoscopy Completed Medical Devices Description No Information Available Encounters Type Date Location Provider Dx Diagnosis Office Visit 02/26/2020 10:00a [facility] Akbar M.D. Z01.810 Encounter for preprocedural cardiovascular examination N20.0 Calculus of kidney I82.411 Acute embolism and thrombosi s of right femoral vein I25.10 Athscl heart disease of [place] coronary artery w/o ang pctrs I10 Essential (primary) hyperten vy E87.6 Hypokalemia R32 Unspecified urinary incontin ence K58.0 Irritable bowel syndrome wit h diarrhea G35 Multiple sclerosis K80.00 Calculus of gallbladder w ac [place] cholecyst w/o obstruction M19.90 Unspecified osteoarthritis, unspecified site E78.5 Hyperlipidemia, unspecified Office Visit 02/06/2020 9:00a [facility] PS[facility]an Akbar M.D. R29.6 Repeated falls A41.51 Sepsis due to Escherichia co li [E. coli] K80.00 Calculus of gallbladder w ac [place] cholecyst w/o obstruction I10 Essential (primary) hyperten vy R60.0 Localized edema G35 Multiple sclerosis M19.90 Unspecified osteoarthritis, unspecified site M81.0 Age-related osteoporosis w/o current pathological fracture R19.7 Diarrhea, unspecified Office Visit 12/12/2019 10:45a [facility] PSusan Akbar M.D. I10 Essential (primary) hyperten vy [...] 02/26/2020 I25.10 Atherosclerotic hear t disease of [place] coronary artery without angina pectoris Sherri Akbar [...] Lab Schedule Plan of Treatment Future Appointment(s):* 03/06/2020 11:00 am - Sherri Akbar M.D. at [facility] * 08/12/2020 10:10 am - Lab Schedule at [facility] * 08/13/2020 11:00 am - Sherri Akbar M.D. at [facility] * 08/13/2020 10:40 am - Nurse #2 at [facility] 02/06/2020 - Sherri Akbar M.D.* R29.6 [...]
--- OUTSIDE RECORDS SUMMARY | 2020-04-29 14:50 | CCD | Continuity of Care Document ---
Author Organization Unknown Address Unknown Phone Unavailable Care Team Providers Care [facility] [employer] Name Role Phone Sherri Akbar MD AUTM [phone] Melody Sidhu MD AUTM [phone] Erna Hill MD AUTM [phone] [facility] AUTM [phone] [facility] AUTM [phone] Problems Active Problems Provider Date Benign essential hypertension Sherri Akbar M.D. Onset: 01/17/2011 Pure hypercholesterolemia Sherri Akbar M.D. Onset: Personal history of primary malignant neoplasm of barbra st Sherri Akbar M.D. Onset: 01/17/2011 Multiple sclerosis Sherri Akbar M.D. Onset: 1 Neutropenia Sherri Akbar M.D. Onset: 1 Abnormal glucose level Sherri Akbar M.D. Onset: 2010 Osteochondropathy Sherri Akbar M.D. Onset: 1 Medications Alf (Current) Use Sherri Akbar M.D. Onset: 01/17/2011 [...] Akbar M.D. 01/18/2011 Calcium 500+D High Potency [id number] Tablets 1 po bid Sherri Akbar M.D. [...] CPT Code Status Date Vaccine Lot # [id number] Given 12/12/2019 Influenza Vaccin e Quadrivalent Preser/Antibiotic Free Im Use [id number] U-Flu Given 12/08/2018 Influenza,Unspecified 68808 Given 12/08/2018 Shingrix Zoster Vaccine (HZV), Recombinant, Subunit, Adjuvanted 70169 Given 10/05/2018 Shingrix Zoster Vaccine (HZV), Recombinant, Subunit, Adjuvanted U-Flu Given 12/19/2017 Influenza,Unspecified 89705 Given 08/11/2016 Tetanus/Diptheria(Td)Toxoids Preservative Free [id number] U-PneuC Given 02/04/2016 Prevnar 13 30208 Given 10/14/2011 Zoster Vaccine [id number] 15414 Given 01/03/2002 Influenza Virus Vaccine 65529 Given 01/17/2001 Influenza Virus Vaccine 53411 Given 03/04/2000 Influenza Virus Vaccine 33978 Given 01/05/1999 Influenza Virus Vaccine Vital Signs [...] Date Facility Test Result H/L Range Note CBC With Differential 03/01/2020 [facility] [address] [place] [address] [phone] White Blood Count 10.9 10 High 4.0-10.0 [...] 36.0-66.0 Lymph % 6.3 % Low 24.0-44.0 Dubois % 2.5 % Normal 0.0-5.0 Eos % 0.0 % Normal 0.0-3.0 Baso % 0.2 % Normal 0.0-1.0 Immature Granulocyte % 1.2 % Normal 0-3.0 Nucleated Red Blood Cell % 0.0 % Normal 0-0 Neutrophils # 9.8 10 High 1.5-8.5 Lymph # 0.7 10 Low 1.5-5.0 Dubois # 0.3 10 Normal 0.0-0.8 Eos # 0.0 10 Normal 0.0-0.5 Baso # 0.0 10 Normal 0.0-0.2 Prothrombin Time/Inr 03/01/2020 [facility] [address] [place] [address] [phone] Prothrombin Time 19.2 seconds High 12.5-14.3 Inr 1.58 Normal 1 Laboratory test finding 03/01/2020 [facility] [address] [place] [address] [phone] Partial Thromboplastin Time 55.0 seconds High 24 .2-38.5 Cardiac Marker Panel 03/01/2020 [facility] [address] [place] [address] [phone] CPK Creatine Phosphokinase 213 U/L High 26-19 2 CK-MB Value Mass 4.0 NG/ML High <3.6 MB/CK Relative Index 1.88 Normal < Or =4 2 Troponin I 0.03 NG/ML Normal < 0.10 3 Liver Profile 03/01/2020 [facility] nter [address] [place] [address] [phone] Ast/Sgot 19 U/L Normal 7-37 Alt/SGPT 15 U/L Normal 12-78 Alkaline Phosphatase 85 U/L Normal 45-117 Bilirubin,Total 1.1 mg/dL High 0.2-1.0 Bilirubin,Direct 0.3 mg/dL High 0.0-0.2 Total Protein 7.5 GM/DL Normal 6.4-8.2 Albumin 2.9 GM/DL Low 3.2-5.2 Albumin/Globulin Ratio 0.6 Low 1.2-2.2 Basic Metabolic Profile 03/01/2020 [facility] [address] [place] [address] [phone] Glucose, Fasting 161 mg/dL High 70-100 Blood Urea Nitrogen 9 mg/dL Normal 7-18 Creatinine For GFR 0.76 mg/dL Normal 0.55-1.30 Glomerular Filtration Rate > 60.0 Normal >32 4 Sodium Level 138 mEq/L Normal 136-145 Potassium Serum 3.6 mEq/L Normal 3.5-5.1 Chloride Level 102 mEq/L Normal 98-107 Carbon Dioxide Level 30 mEq/L Normal 21-32 Anion Gap 6 mEq/L Low 8-16 Calcium Level 9.4 mg/dL Normal 8.8-10.2 Laboratory test finding 03/01/[address] [address] [phone] Amylase 27 U/L Normal 25-115 Lipase 38 U/L Low 73-393 Lactic Acid Sepsis Protocol 2.2 mmol/L Critical high 0.4-2.0 5 NT-Pro BNP 3257 pg/mL High <450 Arterial Blood Gas 03/01/2020 [facility] nter [address] [place] [address] [phone] ABG pH (Arterial) 7.501 units High 7.350-7.450 ABG Partial Pressure Co2 40.3 mmHg Normal 35.0-45.0 ABG Partial Pressure O2 85.0 mmHg Normal 75.0-100.0 ABG Total Co2 32.0 mEq/L High 23.0-31.0 ABG Hco3 30.8 mEq/L High 22.0-26.0 ABG Base Excess 7.1 High -2.0-2.0 ABG Standard Hco3 30.9 mEq/L High 22.0-26.0 ABG O2 Saturation 97.0 % Normal 95.0-99.0 Ua W/ Reflex To Culture 03/01/[address] [address] [phone] Appearance, Urine RFX CLOUDY High Clear Color, Urine RFX RED High Yellow PH,Urine RFX 6.0 units Normal 5.0-9.0 Specific [place] Ur Auto RFX 1.014 Normal 1.002-1.035 Protein, [...] 0-1 Amorphous Sediment RFX SMALL High Negative Type & Screen -Incl Blood Type,Marshal,AB SC 03/01/[address] [address] [phone] Blood Type A POSITIVE Normal AB Screen (Indirect Aranza)Vis POSITIVE Normal Laboratory test finding 03/01/[address] [address] [phone] Antibody Identification Anti-K Normal Complete Blood Count 02/26/2020 [facility] [place] [facility]: [place] [address] [phone] WBC 5.2 x10*3/UL 4.1 - 10.9 RBC [...] 2.0 - 7.8 Laboratory test finding 02/26/2020 [facility] jacqueline, lissa [place] [facility]: Dr Jake Guajardo [place], [place] [id number] [phone] Magnesium 2.0 mg/dL 1.8 - 2.4 Basic Metabolic Panel 02/26/2020 [facility] [place] [facility]: Dr Jake Guajardo [place], [place] [id number] [phone] Glucose 118 mg/dL High 74 - 99 6 BUN 6 mg/dL Low 7 - 18 Creatinine 0.7 mg/dL 0.6 - 1.3 Sodium 143 mEq/L 136 - 145 Potassium 3.1 mEq/L Low 3.5 - 5.1 7 Chloride 103 mEq/L 98 - 107 Carbon Dioxide 29 mEq/L 21 - 32 Calcium 9.6 mg/dL 8.5 - 10.1 GFR >= 60 mL/min >60 GFR >= 60 mL/min >60 8 Comprehensive Chem Profile 02/06/2020 [facility] [place] [facility]: Dr Jake Guajardo [place], [place] [id number] [phone] Glucose 106 mg/dL High 74 - 99 9 BUN 13 mg/dL 7 - 18 Creatinine [...] mL/min >60 GFR >= 60 mL/min >60 10 Laboratory test finding 02/06/2020 [facility] [place] [facility]: [place] [address] [phone] Sed Rate 42 mm/hr High 0 - 15 Complete Blood Count 02/06/2020 [facility] [place] [facility]: [place] [address] [phone] WBC 6.2 x10*3/UL 4.1 - 10.9 RBC [...] 2.0 - 7.8 Laboratory test finding 02/06/2020 [facility] [address] [place] [address] [phone] C Reactive Protein Quantitativ 1.09 mg/dL High 0 .00-0.30 Ua W/ Reflex To Culture 01/08/2020 [facility] [address] [place] [address] [phone] Appearance, Urine RFX CLOUDY High Clear Color, Urine RFX MAGGY Normal Yellow PH,Urine RFX 6.0 units Normal 5.0-9.0 Specific [place] Ur Auto RFX 1.013 Normal 1.002-1.035 Protein, [...] /LPF Normal 0-1 Cardiac Marker Panel 01/08/2020 [facility] [address] [place] [address] [phone] CPK Creatine Phosphokinase 813 U/L High 26-19 2 CK-MB Value Mass 5.8 NG/ML High <3.6 MB/CK Relative Index 0.71 Normal < Or =4 11 Troponin I 0.25 NG/ML High < 0.10 12 Liver Profile 01/08/2020 [facility] nter [address] [place] [address] [phone] Ast/Sgot 66 U/L High 7-37 Alt/SGPT 35 U/L Normal 12-78 Alkaline Phosphatase 82 U/L Normal 45-117 Bilirubin,Total 2.9 mg/dL High 0.2-1.0 Bilirubin,Direct 0.6 mg/dL High 0.0-0.2 Total Protein 7.2 GM/DL Normal 6.4-8.2 Albumin 3.3 GM/DL Normal 3.2-5.2 Albumin/Globulin Ratio 0.8 Low 1.2-2.2 Basic Metabolic Profile 01/08/[address] [address] [phone] Glucose, Fasting 167 mg/dL High 70-100 Blood Urea Nitrogen 22 mg/dL High 7-18 Creatinine For GFR 1.21 mg/dL Normal 0.55-1.30 Glomerular Filtration Rate 45.1 Normal >32 1 3 Sodium Level 142 mEq/L Normal 136-145 Potassium Serum 3.7 mEq/L Normal 3.5-5.1 Chloride Level 109 mEq/L High 98-107 Carbon Dioxide Level 23 mEq/L Normal 21-32 Anion Gap 10 mEq/L Normal 8-16 Calcium Level 9.9 mg/dL Normal 8.8-10.2 CBC With Differential 01/08/[address] [address] [phone] White Blood Count 16.1 10 High 4.0-10.0 [...] % 0.1 % High 0-0 Differential 01/08/2020 [facility] nter [address] [place] [address] [phone] Neutrophils 80 % High 28-66 Bands 12 % High < 11 Lymphocytes 5 % Low 16-44 Monocytes 2 % Normal 0-5 Metamyelocytes 1 % High 0-0 Macrocytosis 1+ Normal Dohle Bodies 1+ Normal Laboratory test finding 01/08/[address] [address] [phone] Platelet Estimate DECREASED Normal Normal NT-Pro BNP 80156 pg/mL High <450 Laboratory test finding 01/08/[address] [place] [address] [phone] Lactic Acid Sepsis Protocol 4.9 mmol/L Critical high 0 .4-2.0 14 Complete Blood Count 12/11/2019 [facility] [place] [facility]: [place] [address] [phone] WBC 5.5 x10*3/UL 4.1 - 10.9 15 RBC 4.43 x10*6/UL 4.20 - 6.30 Hemoglobin [...] 2.0 - 7.8 Basic Metabolic Panel 12/11/2019 [facility] [place] [facility]: [place] [address] [phone] Glucose 108 mg/dL High 74 - 99 16 BUN 15 mg/dL 7 - 18 Creatinine 0.7 mg/dL 0.6 - 1.3 Sodium 141 mEq/L 136 - 145 Potassium 4.4 mEq/L 3.5 - 5.1 Chloride 105 mEq/L 98 - 107 Carbon Dioxide 23 mEq/L 21 - 32 Calcium 9.5 mg/dL 8.5 - 10.1 GFR >= 60 mL/min >60 GFR >= 60 mL/min >60 17 Ua Dipstick Only 12/11/2019 [facility] [place] [facility]: Dr Jake [place] [id number] [phone] Urine Color YELLOW Yellow Urine Appearance TURBID Abnormal Clear Urine PH 8.0 units 5.0 - 9.0 Urine Specific [place] 1.010 1.005 - 1.030 Urine Leukocytes NEGATIVE Negative Urine Blood NEGATIVE Negative Urine Protein NEGATIVE Negative -Trace Urine Glucose NEGATIVE mg/dL Negative Urine Nitrite POSITIVE Abnormal Negative Urine Ketone NEGATIVE mg/dL Negative Urine Bilirubin NEGATIVE Negative Urine Urobilinogen 0.2 mg/dL 0.2 - 1.0 Microalbumin/Creatinine Urine 12/11/2019 [facility] [place] [facility]: Dr Jake Guajardo [place], [place] [address] [phone] Microalbumin Urine 18.6 mg/L 1.3 - 20.0 Urine Creatinine 48.9 mg/dL 30.0 - 125.0 Microalb/Creat Ratio 38.0 ug/mg High 0.0 - 30.0 1 THERAPUTIC HUMAN INR VALUES INDICATIONS NORMAL RANGES PROPHYLAXIS/TREATMENT OF: VENOUS THROMBOSIS 2.0-3.0 PULMONARY EMBOLISM 2.0-3.0 PREVENTION OF SYSTEMIC EMBOLISM FROM: TISSUE HEART VALVES 2.0-3.0 ACUTE MYOCARDIAL INFARCTION 2.0-3.0 VALVULAR HEART DISEASE 2.0-3.0 ATRIAL FIBRILLATION 2.0-3.0 MECHANICAL VALVES(HIGH RISK) 2.5-3.5 RECURRENT MYOCARDIAL INFARCTION 2.5-3.5 2 DIAGNOSIS CRITERIA MMB ng/ml Relative Index (RI) NON-AMI < or = 5 N/A RIOS ZONE > 5 < or = 4 AMI > 5 > 4 3 Troponin I Reference Interva l for [employer] LOCI: 99th Percentile= 0.00-0.045 ng/ml Risk Stratification: <= 0.10 ng/ml Decreased Risk for Adverse Clinical Events. 0.10-1.50 ng/ml Increased Risk for Adv erse Clinical Events. Evaluation of additional criterion and/or repeat testing in 2-6 hours is suggested to rule out myocardial damage. >= 1.50 ng/ml Indicative of Myocardial Injury. 4 Units are mL/min/1.73 m2 Chronic Kidney Disease Staging per NKF: Stage I & II GFR >=60 Normal to Mildly Decreased Stage III GFR 30-59 Moderately Decreased Stage IV GFR 15-29 Severely Decreased Stage V GFR <15 Very Little GFR Left ESRD GFR <15 on INSPECTOR EYEGLASS FRAMES 5 Y/N query for Sepsis Lactate Rule: Y 6 100-125 mg/dL PRE-DIABET ES/FASTING >126 mg/dL DIABETES/FASTING 7 NOTE: RESULT VERIFIED. 8 CHRONIC KIDNEY DISEASE STAGI NG PER NKF STAGE I & II GFR >= 60 NORMAL TO MILDLY DECREASED STAGE III GFR 30-59 MODERATELY DECREASED STAGE IV GFR 15-29 SEVERELY DECREASED STAGE V GFR <15 VERY LITTLE GFR LEFT ESRD GFR <15 ON INSPECTOR EYEGLASS FRAMES 9 100-125 mg/dL PRE-DIABET ES/FASTING >126 mg/dL DIABETES/FASTING 10 CHRONIC KIDNEY DISEASE STAGI NG PER NKF STAGE I & II GFR >= 60 NORMAL TO MILDLY DECREASED STAGE III GFR 30-59 MODERATELY DECREASED STAGE IV GFR 15-29 SEVERELY DECREASED STAGE V GFR <15 VERY LITTLE GFR LEFT ESRD GFR <15 ON INSPECTOR EYEGLASS FRAMES 11 DIAGNOSIS CRITERIA MMB ng/ml Relative Index (RI) NON-AMI < or = 5 N/A RIOS ZONE > 5 < or = 4 AMI > 5 > 4 12 Troponin I Reference Interva l for [employer] LOCI: 99th Percentile= 0.00-0.045 ng/ml Risk Stratification: <= 0.10 ng/ml Decreased Risk for Adverse Clinical Events. 0.10-1.50 ng/ml Increased Risk for Adv erse Clinical Events. Evaluation of additional criterion and/or repeat testing in 2-6 hours is suggested to rule out myocardial damage. >= 1.50 ng/ml Indicative of Myocardial Injury. 13 Units are mL/min/1.73 m2 Chronic Kidney Disease Staging per NKF: Stage I & II GFR >=60 Normal to Mildly Decreased Stage III GFR 30-59 Moderately Decreased Stage IV GFR 15-29 Severely Decreased Stage V GFR <15 Very Little GFR Left ESRD GFR <15 on [employer]PECTOR EYEGLASS FRAMES 14 Y/N query for Sepsis Lactate Rule: Y 15 NOTE: RESULT VERIFIED. 16 100-125 mg/dL PRE-DIABET ES/FASTING >126 mg/dL DIABETES/FASTING 17 CHRONIC KIDNEY DISEASE STAGI NG PER NKF STAGE I & II GFR >= 60 NORMAL TO MILDLY DECREASED STAGE III GFR 30-59 MODERATELY DECREASED STAGE IV GFR 15-29 SEVERELY DECREASED STAGE V GFR <15 VERY LITTLE GFR LEFT ESRD GFR <15 ON INSPECTOR EYEGLASS FRAMES Procedures Date Code Description Status 08/19/2016 [id number] Bone Mineral Density Test Comple angella 11/12/2015 [id number] Mammogram Completed 11/06/2014 [id number] Mammogram Completed 11/05/2013 [id number] Bone Mineral Density Test Comple angella 11/05/2013 [id number] Mammogram Completed 11/02/2012 [id number] Mammogram Completed 01/10/2012 [id number] Colonoscopy Completed 11/02/2011 [id number] Mammogram Completed 10/15/2011 [id number] Bone Mineral Density Test Comple angella 10/20/2010 [id number] Mammogram Completed 10/13/2010 [id number] Mammogram Completed 10/08/2009 [id number] Mammogram Completed 10/07/2009 [id number] Bone Mineral Density Test Comple [facility] 01/16/2001 [id number] Colonoscopy Completed Medical Devices Description No Information Available Encounters Type Date Location Provider Dx Diagnosis Office Visit 02[facility]06[facility]2020 9[facility]a [facility] R29.6 Repeated falls A41.51 Sepsis due to Escherichia co li [E. coli] K80.00 Calculus of gallbladder w ac judit cholecyst w/o obstruction I10 Essential (primary) hyperten vy R60.0 Localized edema G35 Multiple sclerosis M19.90 Unspecified osteoarthritis, unspecified site M81.0 Age-related osteoporosis w/o current pathological fracture R19.7 Diarrhea, unspecified Office Visit 12/12/2019 10:45a [facility] I10 Essential (primary) hyperten vy E78.00 Pure hypercholesterolemia, u nspecified R60.0 Localized edema M81.0 Age-related osteoporosis w/o current pathological fracture R73.09 Other abnormal glucose R19.7 Diarrhea, unspecified G35 Multiple sclerosis Z85.3 Personal history of malignan t neoplasm of breast R32 Unspecified urinary incontin ence Z23 Encounter for immunization Assessments Date Code Description Provider 02/06/2020 R29.6 Repeated falls Sherri leon M.D. [...] 11:00 am - Sherri Akbar M.D. at [facility] * 08/12/2020 10:10 am - [facility] * 08/13/2020 11:00 am - Sherri Akbar M.D. at [facility] * 08/13/2020 10:40 am - Nurse #2 at [facility] 02/06/2020 - Sherri Akbar M.D.* R29.6 [...]
--- OUTSIDE RECORDS SUMMARY | 2020-04-29 14:50 | CCD | Continuity of Care Document ---
Author Organization Unknown Address Unknown Phone Unavailable Care Team Providers Care Securities Attorney Name Role Phone Sherri Akbar MD AUTM [phone] Melody Sidhu MD AUTM [phone] Erna Hill MD AUTM [phone] [facility]a AUTM [phone] [facility] AUTM Problems Active Problems [...] Osteochondropathy Sherri Akbar M.D. Onset: 1 Medications [facility] (Current) Use Sherri Akbar M.D. Onset: [...] Akbar M.D. 01/18/2011 Calcium 500+D High Potency [id number] Tablets 1 po bid Sherri Akbar M.D. [...] CPT Code Status Date Vaccine Lot # [id number] Given 12/12/2019 Influenza Vaccin e Quadrivalent Preser/Antibiotic Free Im Use [id number] U-Flu Given 12/08/2018 Influenza,Unspecified 13130 Given 12/08/2018 Shingrix Zoster Vaccine (HZV), Recombinant, Subunit, Adjuvanted 59282 Given 10/05/2018 Shingrix Zoster Vaccine (HZV), Recombinant, Subunit, Adjuvanted U-Flu Given 12/19/2017 Influenza,Unspecified 52848 Given 08/11/2016 Tetanus/Diptheria(Td)Toxoids Preservative Free [id number] U-PneuC Given 02/04/2016 Prevnar 13 26970 Given 10/14/2011 Zoster Vaccine [id number] 88604 Given 01/03/2002 Influenza Virus Vaccine 73529 Given 01/17/2001 Influenza Virus Vaccine 79111 Given 03/04/2000 Influenza Virus Vaccine 48368 Given 01/05/1999 Influenza Virus Vaccine Vital Signs [...] Note Influenza A/B RSV Covid Amp 03/01/2020 [facility] [address] [place] [address] [phone] Influenza A Amplification NEGATIVE Normal Negati ve 1 Influenza B Amplification NEGATIVE Normal Negative 2 RSV Amplification NEGATIVE Normal Negative 3 Sars Covid-19 Amplification NEGATIVE Normal Negative 4 Laboratory test finding 03/01/2020 [facility] [address] [place] [address] [phone] Antibody Identification Anti-K Normal Type & Screen -Incl Blood Type,Marshal,AB SC 03/01/2020 [facility] [address] [place] [address] [phone] Blood Type A POSITIVE Normal AB Screen (Indirect Aranza)Vis POSITIVE Normal Ua W/ Reflex To Culture 03/01/[address] [address] [phone] Appearance, Urine RFX CLOUDY High Clear Color, Urine RFX RED High Yellow PH,Urine RFX 6.0 units Normal 5.0-9.0 Specific [place] Ur Auto RFX 1.014 Normal 1.002-1.035 Protein, [...] SMALL High Negative Arterial Blood Gas 03/01/2020 [facility]ter [address] [place] [address] [phone] ABG pH (Arterial) 7.501 units High 7.350-7.450 ABG Partial Pressure Co2 40.3 mmHg Normal 35.0-45.0 ABG Partial Pressure O2 85.0 mmHg Normal 75.0-100.0 ABG Total Co2 32.0 mEq/L High 23.0-31.0 ABG Hco3 30.8 mEq/L High 22.0-26.0 ABG Base Excess 7.1 High -2.0-2.0 ABG Standard Hco3 30.9 mEq/L High 22.0-26.0 ABG O2 Saturation 97.0 % Normal 95.0-99.0 Laboratory test finding 03/01/2020 [facility] [address] [place] [address] [phone] Amylase 27 U/L Normal 25-115 Lipase 38 U/L Low 73-393 Lactic Acid Sepsis Protocol 2.2 mmol/L Critical high 0.4-2.0 5 NT-Pro BNP 3257 pg/mL High <450 Basic Metabolic Profile 03/01/2020 [facility] [address] [place] [address] [phone] Glucose, Fasting 161 mg/dL High 70-100 Blood [...] 9.4 mg/dL Normal 8.8-10.2 Liver Profile 03/01/2020 [facility]ter [address] [place] [address] [phone] Ast/Sgot 19 U/L Normal 7-37 Alt/SGPT 15 U/L Normal 12-78 Alkaline Phosphatase 85 U/L Normal 45-117 Bilirubin,Total 1.1 mg/dL High 0.2-1.0 Bilirubin,Direct 0.3 mg/dL High 0.0-0.2 Total Protein 7.5 GM/DL Normal 6.4-8.2 Albumin 2.9 GM/DL Low 3.2-5.2 Albumin/Globulin Ratio 0.6 Low 1.2-2.2 Cardiac Marker Panel 03/01/2020 [facility] enter [address] [place] [address] [phone] CPK Creatine Phosphokinase 213 U/L High 26-19 2 CK-MB Value Mass 4.0 NG/ML High <3.6 MB/CK Relative Index 1.88 Normal < Or =4 7 Troponin I 0.03 NG/ML Normal < 0.10 8 Laboratory test finding 03/01/2020 [facility] [address] [place] [address] [phone] Partial Thromboplastin Time 55.0 seconds High 24 .2-38.5 Prothrombin Time/Inr 03/01/2020 [facility] enter [address] [place] [address] [phone] Prothrombin Time 19.2 seconds High 12.5-14.3 Inr 1.58 Normal 9 CBC With Differential 03/01/2020 [facility] [address] [place] [address] [phone] White Blood Count 10.9 10 High 4.0-10.0 [...] 36.0-66.0 Lymph % 6.3 % Low 24.0-44.0 Blount % 2.5 % Normal 0.0-5.0 Eos % 0.0 % Normal 0.0-3.0 Baso % 0.2 % Normal 0.0-1.0 Immature Granulocyte % 1.2 % Normal 0-3.0 Nucleated Red Blood Cell % 0.0 % Normal 0-0 Neutrophils # 9.8 10 High 1.5-8.5 Lymph # 0.7 10 Low 1.5-5.0 Blount # 0.3 10 Normal 0.0-0.8 Eos # 0.0 10 Normal 0.0-0.5 Baso # 0.0 10 Normal 0.0-0.2 Complete Blood Count 02/26/2020 [facility] Sdet: [place] [address] [phone] WBC 5.2 x10*3/UL 4.1 - 10.9 RBC [...] 2.0 - 7.8 Laboratory test finding 02/26/2020 [facility] Sdet: [place] [address] [phone] Magnesium 2.0 mg/dL 1.8 - 2.4 Basic Metabolic Panel 02/26/2020 [facility] Sdet: [place] [address] [phone] Glucose 118 mg/dL High 74 - 99 [...] mL/min >60 12 Comprehensive Chem Profile 02/06/2020 [facility] Sdet: [place] [address] [phone] Glucose 106 mg/dL High 74 - 99 [...] mL/min >60 14 Laboratory test finding 02/06/2020 [facility] Sdet: [place] [address] [phone] Sed Rate 42 mm/hr High 0 - 15 Complete Blood Count 02/06/2020 [facility] Sdet: [place] [address] [phone] WBC 6.2 x10*3/UL 4.1 - 10.9 RBC [...] 2.0 - 7.8 Laboratory test finding 02/06/2020 [facility] [address] [place] [address] [phone] C Reactive Protein Quantitativ 1.09 mg/dL High 0 .00-0.30 Ua W/ Reflex To Culture 01/08/2020 [facility] [address] [place] [address] [phone] Appearance, Urine RFX CLOUDY High Clear Color, Urine RFX MAGGY Normal Yellow PH,Urine RFX 6.0 units Normal 5.0-9.0 Specific [place] Ur Auto RFX 1.013 Normal 1.002-1.035 Protein, [...] /LPF Normal 0-1 Cardiac Marker Panel 01/08/2020 [facility] enter [address] [place] [id number] [phone] CPK Creatine Phosphokinase 813 U/L High 26-19 2 CK-MB Value Mass 5.8 NG/ML High <3.6 MB/CK Relative Index 0.71 Normal < Or =4 15 Troponin I 0.25 NG/ML High < 0.10 16 Liver Profile 01/08/2020 [facility] nter [address] [place] [address] [phone] Ast/Sgot 66 U/L High 7-37 Alt/SGPT 35 U/L Normal 12-78 Alkaline Phosphatase 82 U/L Normal 45-117 Bilirubin,Total 2.9 mg/dL High 0.2-1.0 Bilirubin,Direct 0.6 mg/dL High 0.0-0.2 Total Protein 7.2 GM/DL Normal 6.4-8.2 Albumin 3.3 GM/DL Normal 3.2-5.2 Albumin/Globulin Ratio 0.8 Low 1.2-2.2 Basic Metabolic Profile 01/08/2020 [facility] [address] [place] [address] [phone] Glucose, Fasting 167 mg/dL High 70-100 Blood [...] mg/dL Normal 8.8-10.2 CBC With Differential 01/08/2020 [address] [place] [address] [phone] White Blood Count 16.1 10 High 4.0-10.0 [...] % 0.1 % High 0-0 Differential 01/08/2020 [facility] nter [address] [place] [address] [phone] Neutrophils 80 % High 28-66 Bands 12 % High < 11 Lymphocytes 5 % Low 16-44 Monocytes 2 % Normal 0-5 Metamyelocytes 1 % High 0-0 Macrocytosis 1+ Normal Dohle Bodies 1+ Normal Laboratory test finding 01/08/2020 [facility] [address] [place] [address] [phone] Platelet Estimate DECREASED Normal Normal NT-Pro BNP 75481 pg/mL High <450 Laboratory test finding 01/08/2020 [facility] [address] [place] [address] [phone] Lactic Acid Sepsis Protocol 4.9 mmol/L Critical high 0 .4-2.0 18 Complete Blood Count 12/11/2019 [facility] Sdet: [place] [address] [phone] WBC 5.5 x10*3/UL 4.1 - 10.9 19 [...] 2.0 - 7.8 Basic Metabolic Panel 12/11/2019 [facility] Sdet: [place] [address] [phone] Glucose 108 mg/dL High 74 - 99 [...] mL/min >60 21 Ua Dipstick Only 12/11/2019 [facility] S[facility]: Dr Jake Guaj[address] [place], [place] [id number] [phone] Urine Color YELLOW Yellow Urine Appearance TURBID Abnormal Clear Urine PH 8.0 units 5.0 - 9.0 Urine Specific [place] 1.010 1.005 - 1.030 Urine Leukocytes NEGATIVE Negative Urine Blood NEGATIVE Negative Urine Protein NEGATIVE Negative -Trace Urine Glucose NEGATIVE mg/dL Negative Urine Nitrite POSITIVE Abnormal Negative Urine Ketone NEGATIVE mg/dL Negative Urine Bilirubin NEGATIVE Negative Urine Urobilinogen 0.2 mg/dL 0.2 - 1.0 Microalbumin/Creatinine Urine 12/11/2019 [facility] Sdet: Dr Jake Guajardo [place], [place] [id number] [phone] Microalbumin Urine 18.6 mg/L 1.3 - 20.0 [...] pathogens. DISCLAIMER: Testing was performed using the [employer] SARS-CoV-2 test. This test was developed and its performance characteristics determined by [employer]. This test has not been FDA cleared [...] Little GFR Left ESRD GFR <15 on SALES SOLUTIONS REPRESENTATIVE 7 DIAGNOSIS CRITERIA MMB ng/ml Relative Index (RI) NON-AMI < or = 5 N/A RIOS ZONE > 5 < or = 4 AMI > 5 > 4 8 Troponin I Reference Interva l for [employer] LOCI: 99th Percentile= 0.00-0.045 ng/ml Risk Stratification: [...] LITTLE GFR LEFT ESRD GFR <15 ON SALES SOLUTIONS REPRESENTATIVE 13 100-125 mg/dL PRE-DIABET ES/FASTING >126 mg/dL DIABETES/FASTING 14 CHRONIC KIDNEY DISEASE STAGI NG PER NKF STAGE I & II GFR >= 60 NORMAL TO MILDLY DECREASED STAGE III GFR 30-59 MODERATELY DECREASED STAGE IV GFR 15-29 SEVERELY DECREASED STAGE V GFR <15 VERY LITTLE GFR LEFT ESRD GFR <15 ON SALES SOLUTIONS REPRESENTATIVE 15 DIAGNOSIS CRITERIA MMB ng/ml Relative Index (RI) NON-AMI < or = 5 N/A RIOS ZONE > 5 < or = 4 AMI > 5 > 4 16 Troponin I Reference Interva l for [employer] LOCI: 99th Percentile= 0.00-0.045 ng/ml Risk Stratification: [...] Little GFR Left ESRD GFR <15 on SALES SOLUTIONS REPRESENTATIVE 18 Y/N query for Sepsis Lactate Rule: Y 19 NOTE: RESULT VERIFIED. 20 100-125 mg/dL PRE-DIABET ES/FASTING >126 mg/dL DIABETES/FASTING 21 CHRONIC KIDNEY DISEASE STAGI NG PER NKF STAGE I & II GFR >= 60 NORMAL TO MILDLY DECREASED STAGE III GFR 30-59 MODERATELY DECREASED STAGE IV GFR 15-29 SEVERELY DECREASED STAGE V GFR <15 VERY LITTLE GFR LEFT ESRD GFR <15 ON SALES SOLUTIONS REPRESENTATIVE Procedures Date Code Description Status 08/19/2016 [id number] Bone Mineral Density Test Comple [facility] 11/12/2015 [id number] Mammogram Completed 11/06/2014 [id number] Mammogram Completed 11/05/2013 [id number] Bone Mineral Density Test Comple [facility] 11/05/2013 [id number] Mammogram Completed 11/02/2012 [id number] Mammogram Completed 01/10/2012 [id number] Colonoscopy Completed 11/02/2011 [id number] Mammogram Completed 10/15/2011 [id number] Bone Mineral Density Test Comple [facility] 10/20/2010 [id number] Mammogram Completed 10/13/2010 [id number] Mammogram Completed 10/08/2009 [id number] Mammogram Completed 10/07/2009 [id number] Bone Mineral Density Test Comple [facility] 01/16/2001 [id number] Colonoscopy Completed Medical Devices Description No Information Available Encounters Type Date Location Provider Dx Diagnosis Office Visit 02/26/2020 10:00a [facility] M.D. Z01.810 Encounter for [...] sclerosis K80.00 Calculus of gallbladder w ac [place] cholecyst w/o obstruction M19.90 Unspecified osteoarthritis, unspecified site E78.5 Hyperlipidemia, unspecified Office Visit 02/06/2020 9:00a [facility] P.CD[facility]o Akbar M.D. R29.6 Repeated falls A41.51 Sepsis due to Escherichia co li [E. coli] K80.00 Calculus of gallbladder w ac [place] cholecyst w/o obstruction I10 Essential (primary) hyperten vy R60.0 Localized edema G35 Multiple sclerosis M19.90 Unspecified osteoarthritis, unspecified site M81.0 Age-related osteoporosis w/o current pathological fracture R19.7 Diarrhea, unspecified Office Visit 12/12/2019 10:45a [facility] Akbar M.D. 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 02/26/2020 M19.90 Unspecified osteoarthritis, [facility] site Sherri Akbar M.D. 02/26/2020 E78.5 [...] 11:00 am - Sherri Akbar M.D. at [facility] * 08/12/2020 10:10 am - Lab Schedule at [facility] * 08/13/2020 11:00 am - [facility] * 08/13/2020 10:40 am - Nurse #2 at [facility] 02/06/2020 - Sherri Akbar M.D.* [...]
--- OUTSIDE RECORDS SUMMARY | 2020-04-29 14:51 | CCD | Continuity of Care Document ---
Author Organization Unknown Address Unknown Phone Unavailable Care Team Providers Care Mid Level Game Designer Name Role Phone Sherri Akbar MD AUTM [phone] Melody Sidhu MD AUTM [phone] Erna Hill MD AUTM [phone] [facility] AUTM [phone] [facility] AUTM [phone] Problems Active Problems Provider Date Benign essential hypertension Sherri Akbar M.D. Onset: 01/17/2011 Pure hypercholesterolemia Sherri Akbar M.D. Onset: Personal history of primary malignant neoplasm of barbra st Sherri Akbar M.D. Onset: 01/17/2011 Multiple sclerosis Sherri Akbar M.D. Onset: 1 Neutropenia Sherri Akbar M.D. Onset: 1 Abnormal glucose level Sherri Akbar M.D. Onset: 2010 Osteochondropathy Sherri Akbar M.D. Onset: 1 Medications Nursing Home (Current) Use Sherri Akbar M.D. Onset: [...] Akbar M.D. 01/18/2011 Calcium 500+D High Potency [id number] Tablets 1 po bid Sherri Akbar M.D. [...] CPT Code Status Date Vaccine Lot # [id number] Given 12/12/2019 Influenza Vaccin e Quadrivalent Preser/Antibiotic Free Im Use [id number] U-Flu Given 12/08/2018 Influenza,Unspecified 76819 Given 12/08/2018 Shingrix Zoster Vaccine (HZV), Recombinant, Subunit, Adjuvanted 18322 Given 10/05/2018 Shingrix Zoster Vaccine (HZV), Recombinant, Subunit, Adjuvanted U-Flu Given 12/19/2017 Influenza,Unspecified 51069 Given 08/11/2016 Tetanus/Diptheria(Td)Toxoids Preservative Free [id number] U-PneuC Given 02/04/2016 Prevnar 13 10047 Given 10/14/2011 Zoster Vaccine [id number] 83153 Given 01/03/2002 Influenza Virus Vaccine 30871 Given 01/17/2001 Influenza Virus Vaccine 23511 Given 03/04/2000 Influenza Virus Vaccine 16625 Given 01/05/1999 Influenza Virus Vaccine Vital Signs [...] H/L Range Note CBC With Differential 03/01/2020 [facility] [address] [place] [address] [phone] White Blood Count 10.9 10 High 4.0-10.0 [...] 36.0-66.0 Lymph % 6.3 % Low 24.0-44.0 [place] % 2.5 % Normal 0.0-5.0 Eos % 0.0 % Normal 0.0-3.0 Baso % 0.2 % Normal 0.0-1.0 Immature Granulocyte % 1.2 % Normal 0-3.0 Nucleated Red Blood Cell % 0.0 % Normal 0-0 Neutrophils # 9.8 10 High 1.5-8.5 Lymph # 0.7 10 Low 1.5-5.0 [place] # 0.3 10 Normal 0.0-0.8 Eos # 0.0 10 Normal 0.0-0.5 Baso # 0.0 10 Normal 0.0-0.2 Prothrombin Time/Inr 03/01/2020 [facility] enter [address] [place] [address] [phone] Prothrombin Time 19.2 seconds High 12.5-14.3 Inr 1.58 Normal 1 Laboratory test finding 03/01/2020 [facility] [address] [place] [address] [phone] Partial Thromboplastin Time 55.0 seconds High 24 .2-38.5 Cardiac Marker Panel 03/01/2020 [facility] [address] [place] [address] [phone] CPK Creatine Phosphokinase 213 U/L High 26-19 2 CK-MB Value Mass 4.0 NG/ML High <3.6 MB/CK Relative Index 1.88 Normal < Or =4 2 Troponin I 0.03 NG/ML Normal < 0.10 3 Liver Profile 03/01/2020 [facility] nter [address] [place] [address] [phone] Ast/Sgot 19 U/L Normal 7-37 Alt/SGPT 15 U/L Normal 12-78 Alkaline Phosphatase 85 U/L Normal 45-117 Bilirubin,Total 1.1 mg/dL High 0.2-1.0 Bilirubin,Direct 0.3 mg/dL High 0.0-0.2 Total Protein 7.5 GM/DL Normal 6.4-8.2 Albumin 2.9 GM/DL Low 3.2-5.2 Albumin/Globulin Ratio 0.6 Low 1.2-2.2 Basic Metabolic Profile 03/01/2020 [facility] [address] [place] [address] [phone] Glucose, Fasting 161 mg/dL High 70-100 Blood [...] mg/dL Normal 8.8-10.2 Laboratory test finding 03/01/[address] [address] [phone] Amylase 27 U/L Normal 25-115 Lipase 38 U/L Low 73-393 Lactic Acid Sepsis Protocol 2.2 mmol/L Critical high 0.4-2.0 5 NT-Pro BNP 3257 pg/mL High <450 Arterial Blood Gas 03/01/2020 [facility] n[facility] [address] [place] [address] [phone] ABG pH (Arterial) 7.501 units High 7.350-7.450 ABG Partial Pressure Co2 40.3 mmHg Normal 35.0-45.0 ABG Partial Pressure O2 85.0 mmHg Normal 75.0-100.0 ABG Total Co2 32.0 mEq/L High 23.0-31.0 ABG Hco3 30.8 mEq/L High 22.0-26.0 ABG Base Excess 7.1 High -2.0-2.0 ABG Standard Hco3 30.9 mEq/L High 22.0-26.0 ABG O2 Saturation 97.0 % Normal 95.0-99.0 Ua W/ Reflex To Culture 03/01/[address] [address] [phone] Appearance, Urine RFX CLOUDY High Clear Color, Urine RFX RED High Yellow PH,Urine RFX 6.0 units Normal 5.0-9.0 Specific [place] Ur Auto RFX 1.014 Normal 1.002-1.035 Protein, [...] & Screen -Incl Blood Type,Marshal,AB SC 03/01/[address] [address] [phone] Blood Type A POSITIVE Normal AB Screen (Indirect Aranza)Vis POSITIVE Normal Laboratory test finding 03/01/[address] [address] [phone] Antibody Identification Anti-K Normal Complete Blood Count 02/26/2020 [facility] Department Mgr: [place] [address] [phone] WBC 5.2 x10*3/UL 4.1 - 10.9 RBC [...] 2.0 - 7.8 Laboratory test finding 02/26/2020 [facility] jacqueline, lissa Department Mgr: Dr Jake Guajardo [place], [place] [id number] [phone] Magnesium 2.0 mg/dL 1.8 - 2.4 Basic Metabolic Panel 02/26/2020 [facility] Department Mgr: Dr Jake Guajardo [place], [place] [id number] [phone] Glucose 118 mg/dL High 74 - 99 [...] mL/min >60 8 Comprehensive Chem Profile 02/06/2020 [facility] Department Mgr: Dr Jake Guajardo [place], [place] [id number] [phone] Glucose 106 mg/dL High 74 - 99 [...] mL/min >60 10 Laboratory test finding 02/06/2020 [facility] Department Mgr: [place] [address] [phone] Sed Rate 42 mm/hr High 0 - 15 Complete Blood Count 02/06/2020 [facility] Department Mgr: [place] [address] [phone] WBC 6.2 x10*3/UL 4.1 - 10.9 RBC [...] 2.0 - 7.8 Laboratory test finding 02/06/2020 [facility] [address] [place] [address] [phone] C Reactive Protein Quantitativ 1.09 mg/dL High 0 .00-0.30 Ua W/ Reflex To Culture 01/08/2020 [facility] [address] [place] [address] [phone] Appearance, Urine RFX CLOUDY High Clear Color, Urine RFX MAGGY Normal Yellow PH,Urine RFX 6.0 units Normal 5.0-9.0 Specific [place] Ur Auto RFX 1.013 Normal 1.002-1.035 Protein, [...] /LPF Normal 0-1 Cardiac Marker Panel 01/08/2020 [facility] [address] [place] [address] [phone] CPK Creatine Phosphokinase 813 U/L High 26-19 2 CK-MB Value Mass 5.8 NG/ML High <3.6 MB/CK Relative Index 0.71 Normal < Or =4 11 Troponin I 0.25 NG/ML High < 0.10 12 Liver Profile 01/08/2020 [facility] n[facility] [address] [place] [address] [phone] Ast/Sgot 66 U/L High 7-37 Alt/SGPT 35 U/L Normal 12-78 Alkaline Phosphatase 82 U/L Normal 45-117 Bilirubin,Total 2.9 mg/dL High 0.2-1.0 Bilirubin,Direct 0.6 mg/dL High 0.0-0.2 Total Protein 7.2 GM/DL Normal 6.4-8.2 Albumin 3.3 GM/DL Normal 3.2-5.2 Albumin/Globulin Ratio 0.8 Low 1.2-2.2 Basic Metabolic Profile 01/08/[address] [address] [phone] Glucose, Fasting 167 mg/dL High 70-100 Blood [...] mg/dL Normal 8.8-10.2 CBC With Differential 01/08/[address] [address] [phone] White Blood Count 16.1 10 High 4.0-10.0 [...] % 0.1 % High 0-0 Differential 01/08/2020 [facility] nter [address] [place] [address] [phone] Neutrophils 80 % High 28-66 Bands 12 % High < 11 Lymphocytes 5 % Low 16-44 Monocytes 2 % Normal 0-5 Metamyelocytes 1 % High 0-0 Macrocytosis 1+ Normal Dohle Bodies 1+ Normal Laboratory test finding 01/08/[address] [address] [phone] Platelet Estimate DECREASED Normal Normal NT-Pro BNP 82395 pg/mL High <450 Laboratory test finding 01/08/[address] [place] [address] [phone] Lactic Acid Sepsis Protocol 4.9 mmol/L Critical high 0 .4-2.0 14 Complete Blood Count 12/11/2019 [facility] Department Mgr: [place] [address] [phone] WBC 5.5 x10*3/UL 4.1 - 10.9 15 [...] 2.0 - 7.8 Basic Metabolic Panel 12/11/2019 [facility] Department Mgr: [place] [address] [phone] Glucose 108 mg/dL High 74 - 99 [...] mL/min >60 17 Ua Dipstick Only 12/11/2019 [facility] Department Mgr: Dr Jake [place] [address] [phone] Urine Color YELLOW Yellow Urine Appearance TURBID Abnormal Clear Urine PH 8.0 units 5.0 - 9.0 Urine Specific [place] 1.010 1.005 - 1.030 Urine Leukocytes NEGATIVE Negative Urine Blood NEGATIVE Negative Urine Protein NEGATIVE Negative -Trace Urine Glucose NEGATIVE mg/dL Negative Urine Nitrite POSITIVE Abnormal Negative Urine Ketone NEGATIVE mg/dL Negative Urine Bilirubin NEGATIVE Negative Urine Urobilinogen 0.2 mg/dL 0.2 - 1.0 Microalbumin/Creatinine Urine 12/11/2019 [facility], Department Mgr: Dr Jake Guajardo [place], [place] [id number] [phone] Microalbumin Urine 18.6 mg/L 1.3 - 20.0 [...] Troponin I Reference Interva l for Siemens Playto LOCI: 99th Percentile= 0.00-0.045 ng/ml Risk Stratification: [...] Little GFR Left ESRD GFR <15 on SUBCONTRACTS MANAGER 5 Y/N query for Sepsis Lactate Rule: Y 6 100-125 mg/dL PRE-DIABET ES/FASTING >126 mg/dL DIABETES/FASTING 7 NOTE: RESULT VERIFIED. 8 CHRONIC KIDNEY DISEASE STAGI NG PER NKF STAGE I & II GFR >= 60 NORMAL TO MILDLY DECREASED STAGE III GFR 30-59 MODERATELY DECREASED STAGE IV GFR 15-29 SEVERELY DECREASED STAGE V GFR <15 VERY LITTLE GFR LEFT ESRD GFR <15 ON SUBCONTRACTS MANAGER 9 100-125 mg/dL PRE-DIABET ES/FASTING >126 mg/dL DIABETES/FASTING 10 CHRONIC KIDNEY DISEASE STAGI NG PER NKF STAGE I & II GFR >= 60 NORMAL TO MILDLY DECREASED STAGE III GFR 30-59 MODERATELY DECREASED STAGE IV GFR 15-29 SEVERELY DECREASED STAGE V GFR <15 VERY LITTLE GFR LEFT ESRD GFR <15 ON SUBCONTRACTS MANAGER 11 DIAGNOSIS CRITERIA MMB ng/ml Relative Index (RI) NON-AMI < or = 5 N/A RIOS ZONE > 5 < or = 4 AMI > 5 > 4 12 Troponin I Reference Interva l for Flipps LOCI: 99th Percentile= 0.00-0.045 ng/ml Risk Stratification: [...] Little GFR Left ESRD GFR <15 on SUBCONTRACTS MANAGER 14 Y/N query for Sepsis Lactate Rule: Y 15 NOTE: RESULT VERIFIED. 16 100-125 mg/dL PRE-DIABET ES/FASTING >126 mg/dL DIABETES/FASTING 17 CHRONIC KIDNEY DISEASE STAGI NG PER NKF STAGE I & II GFR >= 60 NORMAL TO MILDLY DECREASED STAGE III GFR 30-59 MODERATELY DECREASED STAGE IV GFR 15-29 SEVERELY DECREASED STAGE V GFR <15 VERY LITTLE GFR LEFT ESRD GFR <15 ON SUBCONTRACTS MANAGER Procedures Date Code Description Status 08/19/2016 [id number] Bone Mineral Density Test Comple angella 11/12/2015 [id number] Mammogram Completed 11/06/2014 [id number] Mammogram Completed 11/05/2013 [id number] Bone Mineral Density Test Comple angella 11/05/2013 [id number] Mammogram Completed 11/02/2012 [id number] Mammogram Completed 01/10/2012 [id number] Colonoscopy Completed 11/02/2011 [id number] Mammogram Completed 10/15/2011 [id number] Bone Mineral Density Test Comple angella 10/20/2010 [id number] Mammogram Completed 10/13/2010 [id number] Mammogram Completed 10/08/2009 [id number] Mammogram Completed 10/07/2009 [id number] Bone Mineral Density Test Comple [facility] 01/16/2001 [id number] Colonoscopy Completed Medical Devices Description No Information Available Encounters Type Date Location Provider Dx Diagnosis Office Visit 02/06/2020 9:[facility]a [facility] R29.6 Repeated falls A41.51 Sepsis due to Escherichia co li [E. coli] K80.00 Calculus of gallbladder w ac judit cholecyst w/o obstruction I10 Essential (primary) hyperten vy R60.0 Localized edema G35 Multiple sclerosis M19.90 Unspecified osteoarthritis, unspecified site M81.0 Age-related osteoporosis w/o current pathological fracture R19.7 Diarrhea, unspecified Office Visit 12/12/2019 10:45a [facility] I10 Essential (primary) [...] 11:00 am - Sherri Akbar M.D. at [facility] * 08/12/2020 10:10 am - [facility] * 08/13/2020 11:00 am - Sherri Akbar M.D. at [facility] * 08/13/2020 10:40 am - Nurse #2 at [facility] 02/06/2020 - Sherri Akbar M.D.* R29.6 [...]
--- OUTSIDE RECORDS SUMMARY | 2020-04-29 14:51 | CCD | Continuity of Care Document ---
Author Author Paola Akbar M.D. Organization Unknown Address [address] [place] [address] Phone [phone] Care Team Providers [employer] Helper Name Role Phone Sherri Akbar MD AUTM [phone] Melody Sidhu MD AUTM [phone] Erna Hill MD AUTM [phone] [facility] AUTM [phone] [facility] AUTM [phone] Problems Active Problems Provider Date Benign [...] SIG Qnty Indications Ordering Provide r Date Tylenol PM Extra Strength 500-25mg Tablets 1 by mouth every night at bedtime Sherri Akbar M.D. 08/30/2018 Amlodipine Besylate 5mg Tablets take one tablet by mouth at bedtime 90tabs Sherice Sanchez 08/11/2016 Klor-Con 10 10Meq Tablets ER 1 by mouth every day 90tabs Sherri Akbar M.D. 12/02/19 16 Losartan Potassium 100mg Tablets 1 by mouth every night at bedtime 90tabs Sherri Akbar M.D. 12/02/2015 Oxybutynin Chloride 5mg Tablets twice a day as needed 180tabs Sherri Akbar M.D. 08/26/19 16 Diphenoxylate-Atropine 2.5-0.025mg Tablets 1 three times a day by mouth as needed 90tabs Judy Akbar M.D. 11/21/2014 Pravastatin Sodium 20mg Tablets 1 by mouth at bedtime 90tabs Sherri Akbar M.D. 01/24/20 14 Garlic 500mg Capsules qd Sherri Akbar M.D. 01/18/2011 Calcium 500+D High Potency 319-417yd-Bazz Tablets 1 po bid Sherri Akbar M.D. 12/27 Fiber Complete Tablets 3 -6 qd Sherri Akbar M.D. 01/18/2011 MV-One Capsules qd Sherri Akbar M.D. 09/01/2009 Aspir-[address] 1 po qd Sherri Akbar M.D. 09/01/2009 Vitamin D3 1000Unit Capsules 2 po qd Caro Luciano,SONDRA 09/01/2009 Travatan Z 0.004% Solution 1 gtt ou qhs Sherri Akbar M.D. 09/01/2009 Cosopt PF 22.3-6.8mg/ml Solution Unknown Gabapentin 300mg Capsules 1 by mouth at bed time 90capcr Akbar M.D. 00 History Medications Macrobid 100mg Capsules 1 by mouth twice a day x 7 days 14ckathi Akbar M.D. 08/28/19 20 - 12/12/2019 Medications Administered in Office Medication SIG Qnty Indications Ordering Provider Date Administration Of Flu Vaccine Inj carolann Akbar M.D. 12/12/19 Administration Of Flu Vaccine Inj ection Sherri Akbar M.D. 01/04/20 Administration Of Flu Vaccine Inj carolann Akbar M.D. 01/18/20 01 Immunizations CPT Code Status Date Vaccine Lot # [id number] Given 12/12/2019 Influenza Vaccin e Quadrivalent Preser/Antibiotic Free Im Use [id number] U-Flu Given 12/08/2018 Influenza,Unspecified 23550 Given 12/08/2018 Shingrix Zoster Vaccine (HZV), Recombinant, Subunit, Adjuvanted 86602 Given 10/05/2018 Shingrix Zoster Vaccine (HZV), Recombinant, Subunit, Adjuvanted U-Flu Given 12/19/2017 Influenza,Unspecified 96752 Given 08/11/2016 Tetanus/Diptheria(Td)Toxoids Preservative Free [id number] U-PneuC Given 02/04/2016 Prevnar 13 41650 Given 10/14/2011 Zoster Vaccine [id number] 33157 Given 01/03/2002 Influenza Virus Vaccine 79620 Given 01/17/2001 Influenza Virus Vaccine 40696 Given 03/04/2000 Influenza Virus Vaccine 17678 Given 01/05/1999 Influenza Virus Vaccine Vital Signs Date Vital Result Comment 02/06/2020 9:04am BP Systolic 124 mmHg LT Arm BP Diastolic 78 mmHg LT Arm Heart Rate 97 /min Height 56.50 inches 4'8.50" Weight 162.00 lb O2 % BldC Oximetry 96 % RM Air BMI (Body Mass Index) 35.7 kg/m2 12/12/2019 10:42am BP Systolic 108 mmHg BP Diastolic 58 mmHg Heart Rate 105 /min Height 56.50 inches 4'8.50" Weight 159.00 lb O2 Saturation Level with Exercise 94 % RM Air BMI (Body Mass Index) 35.0 kg/m2 Results Test Acquired Date Facility Test Result H/L Range Note Laboratory test finding 02/06/2020 [facility] [address] [place] [address] [phone] C Reactive Protein Quantitativ 1.09 mg/dL High 0 .00-0.30 Complete Blood Count 02/06/2020 [facility] l[facility] hankins Billing Services Manager: [place] [address] [phone] WBC 6.2 x10*3/UL 4.1 - 10.9 RBC [...] 2.0 - 7.8 Laboratory test finding 02/06/2020 [facility] [employer] lissa phillips Billing Services Manager: [place] [address] [phone] Sed Rate 42 mm/hr High 0 - 15 Comprehensive Chem Profile 02/06/2020 [facility] Billing Services Manager: [place] [address] [phone] Glucose 106 mg/dL High 74 - 99 1 BUN 13 mg/dL 7 - 18 Creatinine [...] mL/min >60 GFR >= 60 mL/min >60 2 Laboratory test finding 01/08/[address] [address] [phone] Lactic Acid Sepsis Protocol 4.9 mmol/L Critical high 0 .4-2.0 3 Laboratory test finding 01/08/2020 [place] [id number] [phone] Platelet Estimate DECREASED Normal Normal NT-Pro BNP 09963 pg/mL High <450 Differential 01/08/2020 [facility] nter [address] [place] [address] [phone] Neutrophils 80 % High 28-66 Bands 12 % High < 11 Lymphocytes 5 % Low 16-44 Monocytes 2 % Normal 0-5 Metamyelocytes 1 % High 0-0 Macrocytosis 1+ Normal Dohle Bodies 1+ Normal CBC With Differential 01/08/[address] [address] [phone] White Blood Count 16.1 10 High 4.0-10.0 [...] Blood Cell % 0.1 % High 0-0 Basic Metabolic Profile 01/08/2020 [facility] [address] [place] [address] [phone] Glucose, Fasting 167 mg/dL High 70-100 Blood Urea Nitrogen 22 mg/dL High 7-18 Creatinine For GFR 1.21 mg/dL Normal 0.55-1.30 Glomerular Filtration Rate 45.1 Normal >32 4 Sodium Level 142 mEq/L Normal 136-145 Potassium Serum 3.7 mEq/L Normal 3.5-5.1 Chloride Level 109 mEq/L High 98-107 Carbon Dioxide Level 23 mEq/L Normal 21-32 Anion Gap 10 mEq/L Normal 8-16 Calcium Level 9.9 mg/dL Normal 8.8-10.2 Liver Profile 01/08/2020 [facility] nter [address] [place] [address] [phone] Ast/Sgot 66 U/L High 7-37 Alt/SGPT 35 U/L Normal 12-78 Alkaline Phosphatase 82 U/L Normal 45-117 Bilirubin,Total 2.9 mg/dL High 0.2-1.0 Bilirubin,Direct 0.6 mg/dL High 0.0-0.2 Total Protein 7.2 GM/DL Normal 6.4-8.2 Albumin 3.3 GM/DL Normal 3.2-5.2 Albumin/Globulin Ratio 0.8 Low 1.2-2.2 Cardiac Marker Panel 01/08/2020 [facility] C enter [address] [place] [address] [phone] CPK Creatine Phosphokinase 813 U/L High 26-19 2 CK-MB Value Mass 5.8 NG/ML High <3.6 MB/CK Relative Index 0.71 Normal < Or =4 5 Troponin I 0.25 NG/ML High < 0.10 6 Ua W/ Reflex To Culture 01/08/2020 [facility] [address] [place] [address] [phone] Appearance, Urine RFX CLOUDY High Clear Color, Urine RFX MAGGY Normal Yellow PH,Urine RFX 6.0 units Normal 5.0-9.0 Specific [place] Ur Auto RFX 1.013 Normal 1.002-1.035 Protein, [...] Urine Auto RFX 3 /LPF Normal 0-1 Complete Blood Count 12/11/2019 [facility] Billing Services Manager: [place] [address] [phone] WBC 5.5 x10*3/UL 4.1 - 10.9 7 RBC 4.43 x10*6/UL 4.20 - 6.30 Hemoglobin [...] 2.0 - 7.8 Basic Metabolic Panel 12/11/2019 [facility] Billing Services Manager: [place] [address] [phone] Glucose 108 mg/dL High 74 - 99 8 BUN 15 mg/dL 7 - 18 Creatinine 0.7 mg/dL 0.6 - 1.3 Sodium 141 mEq/L 136 - 145 Potassium 4.4 mEq/L 3.5 - 5.1 Chloride 105 mEq/L 98 - 107 Carbon Dioxide 23 mEq/L 21 - 32 Calcium 9.5 mg/dL 8.5 - 10.1 GFR >= 60 mL/min >60 GFR >= 60 mL/min >60 9 Ua Dipstick Only 12/11/2019 [facility] , Billing Services Manager: Dr Jake Guajardo [place], [place] [address] [phone] Urine Color YELLOW Yellow Urine Appearance TURBID Abnormal Clear Urine PH 8.0 units 5.0 - 9.0 Urine Specific [place] 1.010 1.005 - 1.030 Urine Leukocytes NEGATIVE Negative Urine Blood NEGATIVE Negative Urine Protein NEGATIVE Negative -Trace Urine Glucose NEGATIVE mg/dL Negative Urine Nitrite POSITIVE Abnormal Negative Urine Ketone NEGATIVE mg/dL Negative Urine Bilirubin NEGATIVE Negative Urine Urobilinogen 0.2 mg/dL 0.2 - 1.0 Microalbumin/Creatinine Urine 12/11/2019 [facility], Billing Services Manager: [place] [address] [phone] Microalbumin Urine 18.6 mg/L 1.3 - 20.0 Urine Creatinine 48.9 mg/dL 30.0 - 125.0 Microalb/Creat Ratio 38.0 ug/mg High 0.0 - 30.0 Complete Blood Count 08/28/2019 [facility], Billing Services Manager: [place] [address] [phone] WBC 4.0 x10*3/UL Low 4.1 - 10.9 RBC 4.31 x10*6/UL 4.20 - 6.30 Hemoglobin 14.3 g/dL 12.0 - 18.0 Hematocrit 42.0 % 37.0 - 51.0 MCV 97.3 fL High 80.0 - 97.0 MCH 33.1 pg High 26.0 - 32.0 MCHC 34.0 g/dL 31.0 - 38.0 RDW 13.5 % 11.6 - 13.7 PLT 193 x10*3/UL 140 - 440 MPV 9.5 FL 7.8 - 11.0 Lymph % 37.8 % 10.0 - 58.5 Mid % 7.9 % 1.7 - 9.3 Neut % 54.3 % 37.0 - 92.0 Lymph # 1.5 x10*3/UL 0.6 - 4.1 Mid # 0.4 x10*3/UL 0.1 - 0.6 Neut # 2.1 x10*3/UL 2.0 - 7.8 Laboratory test finding 08/28/2019 [facility] [employer] isdonn, Billing Services Manager: [place] [address] [phone] Magnesium 2.1 mg/dL 1.8 - 2.4 Comprehensive Chem Profile 08/28/2019 [facility], Billing Services Manager: [place] Jake [place] [address] [phone] Glucose 94 mg/dL 74 - 99 10 BUN 13 mg/dL 7 - 18 Creatinine 0.7 mg/dL 0.6 - 1.3 Sodium 142 mEq/L 136 - 145 Potassium 4.5 mEq/L 3.5 - 5.1 Chloride 106 mEq/L 98 - 107 Carbon Dioxide 25 mEq/L 21 - 32 Calcium 9.7 mg/dL 8.5 - 10.1 Alk. Phosphatase 63 mg/dL 46 - 116 Total Bilirubin 1.9 mg/dL High 0.2 - 1.0 Ast (Sgot) 22 U/L 15 - 37 Alt (SGPT) 21 U/L 12 - 78 Albumin 4.0 g/dL 3.4 - 5.0 Total Protein 7.2 g/dL 6.4 - 8.2 A/G Ratio 1.25 CALC 1.00 - 1.90 GFR >= 60 mL/min >60 GFR >= 60 mL/min >60 11 Lipid Profile 08/28/2019 [facility] , Billing Services Manager: Dr Jake [place] [address] [phone] Cholesterol 169 mg/dL 131 - 200 Triglycerides 146 mg/dL 30 - 150 HDL Cholesterol 61 mg/dL High 35 - 60 LDL (Calculated) 79 CALC 50 - 159 Laboratory test finding 08/28/2019 [facility] [employer] [facility] [facility] Billing Services Manager: Dr Jake Guajardo [place], [place] [address] [phone] Thyroid Stimulating Hormone 1.29 uIU/mL 0.3 6 - 3.74 Ua Dipstick Only 08/28/2019 [facility] , Billing Services Manager: Dr Jake [place] [place], [place] [id number] [phone] Urine Color YELLOW Yellow Urine Appearance CLOUDY Abnormal Clear Urine PH 6.0 units 5.0 - 9.0 Urine Specific [place] 1.020 1.005 - 1.030 Urine Leukocytes MODERATE Abnormal Negative Urine Blood TRACE Abnormal Negative Urine Protein 1+ Abnormal Negative -Trace Urine Glucose NEGATIVE mg/dL Negative Urine Nitrite POSITIVE Abnormal Negative Urine Ketone NEGATIVE mg/dL Negative Urine Bilirubin NEGATIVE Negative Urine Urobilinogen 0.2 mg/dL 0.2 - 1.0 1 100-125 mg/dL PRE-DIABET ES/FASTING >126 mg/dL DIABETES/FASTING 2 CHRONIC KIDNEY DISEASE STAGI NG PER NKF STAGE I & II GFR >= 60 NORMAL TO MILDLY DECREASED STAGE III GFR 30-59 MODERATELY DECREASED STAGE IV GFR 15-29 SEVERELY DECREASED STAGE V GFR <15 VERY LITTLE GFR LEFT ESRD GFR <15 ON FOOD CHEMIST 3 Y/N query for Sepsis Lactate Rule: Y 4 Units are mL/min/1.73 m2 Chronic Kidney Disease Staging per NKF: Stage I & II GFR >=60 Normal to Mildly Decreased Stage III GFR 30-59 Moderately Decreased Stage IV GFR 15-29 Severely Decreased Stage V GFR <15 Very Little GFR Left ESRD GFR <15 on FOOD CHEMIST 5 DIAGNOSIS CRITERIA MMB ng/ml Relative Index (RI) NON-AMI < or = 5 N/A RIOS ZONE > 5 < or = 4 AMI > 5 > 4 6 Troponin I Reference Interva l for [employer] LOCI: 99th Percentile= 0.00-0.045 ng/ml Risk Stratification: <= 0.10 ng/ml Decreased Risk for Adverse Clinical Events. 0.10-1.50 ng/ml Increased Risk for Adv erse Clinical Events. Evaluation of additional criterion and/or repeat testing in 2-6 hours is suggested to rule out myocardial damage. >= 1.50 ng/ml Indicative of Myocardial Injury. 7 NOTE: RESULT VERIFIED. 8 100-125 mg/dL PRE-DIABET ES/FASTING >126 mg/dL DIABETES/FASTING 9 CHRONIC KIDNEY DISEASE STAGI NG PER NKF STAGE I & II GFR >= 60 NORMAL TO MILDLY DECREASED STAGE III GFR 30-59 MODERATELY DECREASED STAGE IV GFR 15-29 SEVERELY DECREASED STAGE V GFR <15 VERY LITTLE GFR LEFT ESRD GFR <15 ON FOOD CHEMIST 10 100-125 mg/dL PRE-DIABET ES/FASTING >126 mg/dL DIABETES/FASTING 11 CHRONIC KIDNEY DISEASE STAGI NG PER NKF STAGE I & II GFR >= 60 NORMAL TO MILDLY DECREASED STAGE III GFR 30-59 MODERATELY DECREASED STAGE IV GFR 15-29 SEVERELY DECREASED STAGE V GFR <15 VERY LITTLE GFR LEFT ESRD GFR <15 ON FOOD CHEMIST Procedures Date Code Description Status 08/19/2016 831277307 Bone Mineral Density Test Comple angella 11/12/2015 [id number] Mammogram Completed 11/06/2014 [id number] Mammogram Completed 11/05/2013 [id number] Bone Mineral Density Test Comple [facility] 11/05/2013 [id number] Mammogram Completed 11/02/2012 [id number] Mammogram Completed 01/10/2012 [id number] Colonoscopy Completed 11/02/2011 [id number] Mammogram Completed 10/15/2011 [id number] Bone Mineral Density Test Comple [facility] 10/20/2010 [id number] Mammogram Completed 10/13/2010 [id number] Mammogram Completed 10/08/2009 [id number] Mammogram Completed 10/07/2009 [id number] Bone Mineral Density Test Comple [facility] 01/16/2001 [id number] Colonoscopy Completed Medical Devices Description No Information Available Encounters Type Date Location Provider Dx Diagnosis Office Visit 02/06/2020 9:00a [facility] Akbar M.D. R29.6 Repeated falls A41.51 Sepsis due to Escherichia co li [E. coli] K80.00 Calculus of gallbladder w ac [place] cholecyst w/o obstruction I10 Essential (primary) hyperten vy R60.0 Localized edema G35 Multiple sclerosis M19.90 Unspecified osteoarthritis, unspecified site M81.0 Age-related osteoporosis w/o current pathological fracture R19.7 Diarrhea, unspecified Office Visit 12/12/2019 10:45a [facility] P.[facility] Akbar M.D. I10 Essential (primary) hyperten vy E78.00 Pure hypercholesterolemia, u nspecified R60.0 Localized edema M81.0 Age-related osteoporosis w/o current pathological fracture R73.09 Other abnormal glucose R19.7 Diarrhea, unspecified G35 Multiple sclerosis Z85.3 Personal history of malignan t neoplasm of breast R32 Unspecified urinary incontin ence Z23 Encounter for immunization Office Visit 08/28/2019 11:00a [facility] Akbar M.D. 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 08/28/2019 E78.00 Pure hypercholesterolemia, unspe cified Sherri Akbar M.D. 08/28/2019 R60.0 Localized edema Sherri leon M.D. 08/28/2019 M81.0 Age-related osteoporosis without current pathological fracture Sherri Akbar M.D. 08/28/2019 Z85.3 Personal history of malignant ne oplasm of breast Sherri Akbar M.D. 08/28/2019 R32 Unspecified urinary incontinence Sherri Akbar M.D. 08/28/2019 E80.4 Gilbert syndrome Sherri kearney M.D. 08/28/2019 R73.09 Other abnormal glucose Sherri Akbar M.D. 08/28/2019 R19.7 Diarrhea, unspecified Sherri otto M.D. 08/28/2019 G35 Multiple sclerosis Sherri massey M.D. 08/28/2019 Z13.89 Encounter for screening for othe r disorder Sherri Akbar M.D. Plan of Treatment Future Appointment(s):* 02/26/2020 10:00 am - Sherri Akbar M.D. at [facility] * 03/06/2020 11:00 am - Sherri Akbar M.D. at [facility] * 08/12/2020 10:10 am - Lab Schedule at [facility] * 08/13/2020 11:00 am - Sherri Akbar M.D. at [facility] * 08/13/2020 10:40 am - Nurse #2 at [facility] 02/06/2020 - Sherri Akbar M.D.* [...]
--- OUTSIDE RECORDS SUMMARY | 2020-04-29 14:51 | CCD ---
Author Author [facility] Organization [facility] Address Unknown Phone Unavailable Care Team Providers Care Baseball Hand Sewer Name Role Phone Tapan Hansen Unavailable PROBLEMS Type Condition ICD9-CM Code VGT96-PR Code Onset Dates Condition S tatus SNOMED Code Notes Problem Left ureteral stone N20.1 Active 06158746 Problem Acute pyelonephritis N10 Active 07202888 ALLERGIES No Known Allergies ENCOUNTERS from 1935 to 2020-02-26 Encounter Location Date Provider Diagnosis [facility] [address] [place] [address] Jan, Tapan Hansen Left ureteral stone N20.1 IMMUNIZATIONS No Information SOCIAL HISTORY Tobacco Use: Social History Observation Description Date Details (start date - stop date) Never Smoker Sex Assigned At : Social History Observation Description Sex Assigned At Unknown Language: Question Answer Notes Languages spoken: Czech Lutheran: Question Answer Notes Lutheran No quaker beliefs that would impact health care. Sexual [...] the evening Ophthalmic Once a day Active Nitrofurantoin Macrocrystal 50 MG 1 cap Orally Daily FOR 30 DAYS Jan, Feb, Active Pravastatin Sodium 20 MG 1 tablet Orally Once a day for 30 day(s) Active Aspirin 81 81 MG 1 tablet Orally Once a day for 30 day(s) Active PROCEDURES No Information RESULTS No Results REASON FOR VISIT urine MEDICAL (GENERAL) HISTORY Type Description Date Medical History [place] Medical History KIDNEY STONE Surgical History HYSTERECTOMY Surgical History RIGHT MASTECTOMY WITH RECONSTRUCTION Hospitalization History SEPSIS FROM KIDNEY STONE 01/2020 Goals Section No Information Health Concerns No Information MEDICAL EQUIPMENT No Information MENTAL STATUS No Information FUNCTIONAL STATUS No Information ASSESSMENTS Encounter Date Diagnosis Assessment Notes Treatment Notes Treatm ent Clinical Notes Jan, Left ureteral stone (ICD-10 - N20.1) PLAN OF TREATMENT Treatment Notes Test Name Order Date URINE CULTURE 2020-02-26 UA URINALYSIS 2020-02-26 Next Appt Details Provider Name:Tapan Hansen, 2020-03-13 09:30:00 AM, [address], [place], [address], Insurance Providers Payer Name Payer Address Payer Phone Insured Name Patient Relati onship to Insured Coverage Start Date Coverage End Date MEDICARE Part A and B [address] [facility] [address] [phone] [facility] [address] [address] [facility] [id number] RICCARDO SAMUELS
--- OUTSIDE RECORDS SUMMARY | 2020-04-29 14:51 | CCD | Continuity of Care Document ---
Author Author Paola Akbar M.D. Organization Unknown Address [address] [place] [address] Phone [phone] Care Team Providers Care Spray Gunner Name Role Phone Sherri Akbar MD AUTM [phone] Melody Sidhu MD AUTM [phone] Erna Hill MD AUTM [phone] [facility] AUTM [phone] [facility] AUTM Problems Active Problems Provider [...] Osteochondropathy Sherri Akbar M.D. Onset: 1 Medications Half-Way (Current) Use Sherri Akbar M.D. Onset: 01/17/2011 [...] 7 days then 5 mg bid 70tabs Paola Ruiz, ANP 02/26/2020 Klor-Con 10 10Meq Tablets ER 2 [...] Akbar M.D. 01/18/2011 Calcium 500+D High Potency [id number]-Zoib Tablets 1 po bid Sherri Akbar M.D. 12/27 Garlic 500mg Capsules qd Sherri Akbar M.D. 01/18/2011 MV-One Capsules qd Sherri Akbar M.D. 09/01/2009 Vitamin D3 1000Unit Capsules 2 po qd Caro Luciano,BACKEND JAVA DEVELOPER 09/01/2009 Travatan Z 0.004% Solution 1 gtt ou qhs Sherri Akbar M.D. 09/01/2009 Cosopt PF 22.3-6.8mg/ml Solution Unknown History Medications Macrobid 100mg Capsules 1 by mouth twice a day x 7 days 14ckathi Akbar M.D. 08/28/19 - 12/12/2019 Medications Administered in Office Medication SIG Qnty Indications Ordering Provider Date Administration Of Flu Vaccine Inj carolann Akbar M.D. 12/12/19 Administration Of Flu Vaccine Inj carolann Akbar M.D. 01/04/20 Administration Of Flu Vaccine Inj ection Sherri Akbar M.D. 01/18/20 Immunizations CPT Code Status Date Vaccine Lot # [id number] Given 12/12/2019 Influenza Vaccin e Quadrivalent Preser/Antibiotic Free Im Use [id number] U-Flu Given 12/08/2018 Influenza,Unspecified 10470 Given 12/08/2018 Shingrix Zoster Vaccine (HZV), Recombinant, Subunit, Adjuvanted 88248 Given 10/05/2018 Shingrix Zoster Vaccine (HZV), Recombinant, Subunit, Adjuvanted U-Flu Given 12/19/2017 Influenza,Unspecified 71911 Given 08/11/2016 Tetanus/Diptheria(Td)Toxoids Preservative Free [id number] U-PneuC Given 02/04/2016 Prevnar 13 80691 Given 10/14/2011 Zoster Vaccine [id number] 70014 Given 01/03/2002 Influenza Virus Vaccine 62382 Given 01/17/2001 Influenza Virus Vaccine 90103 Given 03/04/2000 Influenza Virus Vaccine 92444 Given 01/05/1999 Influenza Virus Vaccine Vital Signs [...] Date Facility Test Result H/L Range Note Complete Blood Count 02/26/2020 [facility] Chief Financial Officer: [place] [address] [phone] WBC 5.2 x10*3/UL 4.1 - 10.9 RBC [...] 2.0 - 7.8 Laboratory test finding 02/26/2020 [facility] Chief Financial Officer: [place] [address] [phone] Magnesium 2.0 mg/dL 1.8 - 2.4 Basic Metabolic Panel 02/26/2020 [facility] Chief Financial Officer: [place] [address] [phone] Glucose 118 mg/dL High 74 - 99 1 BUN 6 mg/dL Low 7 - 18 Creatinine 0.7 mg/dL 0.6 - 1.3 Sodium 143 mEq/L 136 - 145 Potassium 3.1 mEq/L Low 3.5 - 5.1 2 Chloride 103 mEq/L 98 - 107 Carbon Dioxide 29 mEq/L 21 - 32 Calcium 9.6 mg/dL 8.5 - 10.1 GFR >= 60 mL/min >60 GFR >= 60 mL/min >60 3 Laboratory test finding 02/06/2020 [facility] [address] [place] [address] [phone] C Reactive Protein Quantitativ 1.09 mg/dL High 0 .00-0.30 Complete Blood Count 02/06/2020 [facility] Chief Financial Officer: [place] [address] [phone] WBC 6.2 x10*3/UL 4.1 - 10.9 RBC [...] 2.0 - 7.8 Laboratory test finding 02/06/2020 [facility] Chief Financial Officer: [place] [address] [phone] Sed Rate 42 mm/hr High 0 - 15 Comprehensive Chem Profile 02/06/2020 [facility] Chief Financial Officer: [place] [address] [phone] Glucose 106 mg/dL High 74 - 99 4 BUN 13 mg/dL 7 - 18 Creatinine [...] mL/min >60 GFR >= 60 mL/min >60 5 Laboratory test finding 01/08/2020 [place] [id number] [phone] Lactic Acid Sepsis Protocol 4.9 mmol/L Critical high 0 .4-2.0 6 Laboratory test finding 01/08/2020 [place] [address] [phone] Platelet Estimate DECREASED Normal Normal NT-Pro BNP 25786 pg/mL High <450 Differential 01/08/2020 [facility] [address] [place] [address] [phone] Neutrophils 80 % High 28-66 Bands 12 % High < 11 Lymphocytes 5 % Low 16-44 Monocytes 2 % Normal 0-5 Metamyelocytes 1 % High 0-0 Macrocytosis 1+ Normal Dohle Bodies 1+ Normal CBC With Differential 01/08/[address] [address] [phone] White Blood Count 16.1 10 High 4.0-10.0 [...] % High 0-0 Basic Metabolic Profile 01/08/2020 [address] [place] [address] [phone] Glucose, Fasting 167 mg/dL High 70-100 Blood Urea Nitrogen 22 mg/dL High 7-18 Creatinine For GFR 1.21 mg/dL Normal 0.55-1.30 Glomerular Filtration Rate 45.1 Normal >32 7 Sodium Level 142 mEq/L Normal 136-145 Potassium Serum 3.7 mEq/L Normal 3.5-5.1 Chloride Level 109 mEq/L High 98-107 Carbon Dioxide Level 23 mEq/L Normal 21-32 Anion Gap 10 mEq/L Normal 8-16 Calcium Level 9.9 mg/dL Normal 8.8-10.2 Liver Profile 01/08/2020 [facility] [address] [place] [address] [phone] Ast/Sgot 66 U/L High 7-37 Alt/SGPT 35 U/L Normal 12-78 Alkaline Phosphatase 82 U/L Normal 45-117 Bilirubin,Total 2.9 mg/dL High 0.2-1.0 Bilirubin,Direct 0.6 mg/dL High 0.0-0.2 Total Protein 7.2 GM/DL Normal 6.4-8.2 Albumin 3.3 GM/DL Normal 3.2-5.2 Albumin/Globulin Ratio 0.8 Low 1.2-2.2 Cardiac Marker Panel 01/08/2020 [facility] enter [address] [place] [address] [phone] CPK Creatine Phosphokinase 813 U/L High 26-19 2 CK-MB Value Mass 5.8 NG/ML High <3.6 MB/CK Relative Index 0.71 Normal < Or =4 8 Troponin I 0.25 NG/ML High < 0.10 9 Ua W/ Reflex To Culture 01/08/[address] [address] [phone] Appearance, Urine RFX CLOUDY High Clear Color, Urine RFX MAGGY Normal Yellow PH,Urine RFX 6.0 units Normal 5.0-9.0 Specific [place] Ur Auto RFX 1.013 Normal 1.002-1.035 Protein, [...] /LPF Normal 0-1 Complete Blood Count 12/11/2019 [facility] Chief Financial Officer: [place] [address] [phone] WBC 5.5 x10*3/UL 4.1 - 10.9 10 RBC 4.43 x10*6/UL 4.20 - 6.30 Hemoglobin [...] 2.0 - 7.8 Basic Metabolic Panel 12/11/2019 [facility] Chief Financial Officer: [place] [address] [phone] Glucose 108 mg/dL High 74 - 99 11 BUN 15 mg/dL 7 - 18 Creatinine 0.7 mg/dL 0.6 - 1.3 Sodium 141 mEq/L 136 - 145 Potassium 4.4 mEq/L 3.5 - 5.1 Chloride 105 mEq/L 98 - 107 Carbon Dioxide 23 mEq/L 21 - 32 Calcium 9.5 mg/dL 8.5 - 10.1 GFR >= 60 mL/min >60 GFR >= 60 mL/min >60 12 Ua Dipstick Only 12/11/2019 [facility] Chief Financial Officer: Dr Jake Guajardo [place], [place] [id number] [phone] Urine Color YELLOW Yellow Urine Appearance TURBID Abnormal Clear Urine PH 8.0 units 5.0 - 9.0 Urine Specific [place] 1.010 1.005 - 1.030 Urine Leukocytes NEGATIVE Negative Urine Blood NEGATIVE Negative Urine Protein NEGATIVE Negative -Trace Urine Glucose NEGATIVE mg/dL Negative Urine Nitrite POSITIVE Abnormal Negative Urine Ketone NEGATIVE mg/dL Negative Urine Bilirubin NEGATIVE Negative Urine Urobilinogen 0.2 mg/dL 0.2 - 1.0 Microalbumin/Creatinine Urine 12/11/2019 [facility] Chief Financial Officer: Dr Jake Guajardo [place] [id number] [phone] Microalbumin Urine 18.6 mg/L 1.3 - 20.0 Urine Creatinine 48.9 mg/dL 30.0 - 125.0 Microalb/Creat Ratio 38.0 ug/mg High 0.0 - 30.0 Complete Blood Count 08/28/2019 [facility] Chief Financial Officer: Dr Jake Guajardo [place], [place] [id number] [phone] WBC 4.0 x10*3/UL Low 4.1 - 10.9 [...] 2.0 - 7.8 Laboratory test finding 08/28/2019 [facility] Chief Financial Officer: [place] [address] [phone] Magnesium 2.1 mg/dL 1.8 - 2.4 Comprehensive Chem Profile 08/28/2019 [facility] Chief Financial Officer: [place] [address] [phone] Glucose 94 mg/dL 74 - 99 13 BUN 13 mg/dL [...] >60 GFR >= 60 mL/min >60 14 Lipid Profile 08/28/2019 [facility] Chief Financial Officer: [place] [address] [phone] Cholesterol 169 mg/dL 131 - 200 Triglycerides 146 mg/dL 30 - 150 HDL Cholesterol 61 mg/dL High 35 - 60 LDL (Calculated) 79 CALC 50 - 159 Laboratory test finding 08/28/2019 [facility] Chief Financial Officer: [place] [address] [phone] Thyroid Stimulating Hormone 1.29 uIU/mL 0.3 6 - 3.74 Ua Dipstick Only 08/28/2019 [facility] Chief Financial Officer: Dr Jake Guajardo [place], [facility]28 [phone] Urine Color YELLOW Yellow Urine Appearance CLOUDY Abnormal Clear Urine PH 6.0 units 5.0 - 9.0 Urine Specific [place] 1.020 1.005 - 1.030 Urine Leukocytes MODERATE Abnormal Negative Urine Blood TRACE Abnormal Negative Urine Protein 1+ Abnormal Negative -Trace Urine Glucose NEGATIVE mg/dL Negative Urine Nitrite POSITIVE Abnormal Negative Urine Ketone NEGATIVE mg/dL Negative Urine Bilirubin NEGATIVE Negative Urine Urobilinogen 0.2 mg/dL 0.2 - 1.0 1 100-125 mg/dL PRE-DIABET ES/FASTING >126 mg/dL DIABETES/FASTING 2 NOTE: RESULT VERIFIED. 3 CHRONIC KIDNEY DISEASE STAGI NG PER NKF STAGE I & II GFR >= 60 NORMAL TO MILDLY DECREASED STAGE III GFR 30-59 MODERATELY DECREASED STAGE IV GFR 15-29 SEVERELY DECREASED STAGE V GFR <15 VERY LITTLE GFR LEFT ESRD GFR <15 ON BUS AND RAIL OPERATOR 4 100-125 mg/dL PRE-DIABET ES/FASTING >126 mg/dL DIABETES/FASTING 5 CHRONIC KIDNEY DISEASE STAGI NG PER NKF STAGE I & II GFR >= 60 NORMAL TO MILDLY DECREASED STAGE III GFR 30-59 MODERATELY DECREASED STAGE IV GFR 15-29 SEVERELY DECREASED STAGE V GFR <15 VERY LITTLE GFR LEFT ESRD GFR <15 ON BUS AND RAIL OPERATOR 6 Y/N query for Sepsis Lactate Rule: Y 7 Units are mL/min/1.73 m2 Chronic Kidney Disease Staging per NKF: Stage I & II GFR >=60 Normal to Mildly Decreased Stage III GFR 30-59 Moderately Decreased Stage IV GFR 15-29 Severely Decreased Stage V GFR <15 Very Little GFR Left ESRD GFR <15 on BUS AND RAIL OPERATOR 8 DIAGNOSIS CRITERIA MMB ng/ml Relative Index (RI) NON-AMI < or = 5 N/A RIOS ZONE > 5 < or = 4 AMI > 5 > 4 9 Troponin I Reference Interva l for [employer] LOCI: 99th Percentile= 0.00-0.045 ng/ml Risk Stratification: <= 0.10 ng/ml Decreased Risk for Adverse Clinical Events. 0.10-1.50 ng/ml Increased Risk for Adv erse Clinical Events. Evaluation of additional criterion and/or repeat testing in 2-6 hours is suggested to rule out myocardial damage. >= 1.50 ng/ml Indicative of Myocardial Injury. 10 NOTE: RESULT VERIFIED. 11 100-125 mg/dL PRE-DIABET ES/FASTING >126 mg/dL DIABETES/FASTING 12 CHRONIC KIDNEY DISEASE STAGI NG PER NKF STAGE I & II GFR >= 60 NORMAL TO MILDLY DECREASED STAGE III GFR 30-59 MODERATELY DECREASED STAGE IV GFR 15-29 SEVERELY DECREASED STAGE V GFR <15 VERY LITTLE GFR LEFT ESRD GFR <15 ON BUS AND RAIL OPERATOR 13 100-125 mg/dL PRE-DIABET ES/FASTING >126 mg/dL DIABETES/FASTING 14 CHRONIC KIDNEY DISEASE STAGI NG PER NKF STAGE I & II GFR >= 60 NORMAL TO MILDLY DECREASED STAGE III GFR 30-59 MODERATELY DECREASED STAGE IV GFR 15-29 SEVERELY DECREASED STAGE V GFR <15 VERY LITTLE GFR LEFT ESRD GFR <15 ON BUS AND RAIL OPERATOR Procedures Date Code Description Status 08/19/2016 [id number] Bone Mineral Density Test Comple [facility] 11/12/2015 [id number] Mammogram Completed 11/06/2014 [id number] Mammogram Completed 11/05/2013 [id number] Bone Mineral Density Test Comple [facility] 11/05/2013 [id number] Mammogram Completed 11/02/2012 [id number] Mammogram Completed 01/10/2012 [id number] Colonoscopy Completed 11/02/2011 [id number] Mammogram Completed 10/15/2011 [id number] Bone Mineral Density Test Comple [facility] 10/20/2010 [id number] Mammogram Completed 10/13/2010 [id number] Mammogram Completed 10/08/2009 [id number] Mammogram Completed 10/07/2009 [id number] Bone Mineral Density Test Comple [facility] 01/16/2001 [id number] Colonoscopy Completed Medical Devices Description No Information Available Encounters Type Date Location Provider Dx Diagnosis Office Visit 02/06/2020 9[facility]a [facility] R29.6 Repeated falls A41.51 Sepsis due to Escherichia co li [E. coli] K80.00 Calculus of gallbladder w ac [place] cholecyst w/o obstruction I10 Essential (primary) hyperten vy R60.0 Localized edema G35 Multiple sclerosis M19.90 Unspecified osteoarthritis, unspecified site M81.0 Age-related osteoporosis w/o current pathological fracture R19.7 Diarrhea, unspecified Office Visit 12/12[facility]2019 [facility] I10 Essential (primary) hyperten vy E78.00 Pure hypercholesterolemia, u nspecified R60.0 Localized edema M81.0 Age-related osteoporosis w/o current pathological fracture R73.09 Other abnormal glucose R19.7 Diarrhea, unspecified G35 Multiple sclerosis Z85.3 Personal history of malignan t neoplasm of breast R32 Unspecified urinary incontin ence Z23 Encounter for immunization Office Visit 08/28/2019 [facility] I10 Essential (primary) hyperten vy [...] Akbar M.D. 12/12/2019 R60.0 Localized edema Sherri DougDayo leon M.D. 12/12/2019 M81.0 Age-related osteoporosis without [...] Akbar M.D. 08/28/2019 R32 Unspecified urinary incontinence Sehrri Akbar M.D. 08/28/2019 E80.4 Gilbert syndrome Sherri kearney M.D. 08/28/2019 R73.09 Other abnormal glucose Sherri Akbar M.D. 08/28/2019 R19.7 Diarrhea, unspecified Sherri otto M.D. 08/28/2019 G35 Multiple sclerosis Sherri massey M.D. 08/28/2019 Z13.89 Encounter for screening for othe r disorder Sherri Akbar M.D. Plan of Treatment Future Appointment(s):* 03/06/2020 11:00 am - Sherri Akbar M.D. at [facility] * 08/12/2020 10:10 am - Lab Schedule at [facility] * 08/13/2020 11:00 am - Sherri Akbar M.D. at [facility] * 08/13/2020 10:40 am - Nurse #2 at [facility] 02/06/2020 - Sherri Akbar [...]
--- OUTSIDE RECORDS SUMMARY | 2020-04-29 14:51 | CCD | Continuity of Care Document ---
Author Author Paola Akbar M.D. Organization Unknown Address [address] [place] [address] Phone [phone] Care Team Providers Care Material Stress Tester Name Role Phone Sherri Akbar MD AUTM [phone] Melody Sidhu MD AUTM [phone] Erna Hill MD AUTM [phone] [facility] AUTM [phone] [facility] AUTM Problems Active [...] Osteochondropathy Sherri Akbar M.D. Onset: 1 Medications Usp (Current) Use Sherri Akbar M.D. Onset: 01/17/2011 [...] 1-2qhs 270tabs Sherri Akbar M.D. 02/26/20 20 Tylenol PM [...] Akbar M.D. 01/18/2011 Calcium 500+D High Potency [id number]-Bohm Tablets 1 po bid Sherri Akbar M.D. [...] mouth twice a day x 7 days 14caps Sherri Akbar M.D. 08/28/19 - 12/12/2019 Medications Administered in Office Medication SIG Qnty Indications Ordering Provider Date Administration Of Flu Vaccine Inj carolann Akbar M.D. 12/12/19 Administration Of Flu Vaccine Inj dawnaion Sherri Akbar M.D. 01/04/20 Administration Of Flu Vaccine Inj carolann Akbar M.D. 01/18/20 Immunizations CPT Code Status Date Vaccine Lot # [id number] Given 12/12/2019 Influenza Vaccin e Quadrivalent Preser/Antibiotic Free Im Use [id number] U-Flu Given 12/08/2018 Influenza,Unspecified 22369 Given 12/08/2018 Shingrix Zoster Vaccine (HZV), Recombinant, Subunit, Adjuvanted 19360 Given 10/05/2018 Shingrix Zoster Vaccine (HZV), Recombinant, Subunit, Adjuvanted U-Flu Given 12/19/2017 Influenza,Unspecified 43090 Given 08/11/2016 Tetanus/Diptheria(Td)Toxoids Preservative Free [id number] U-PneuC Given 02/04/2016 Prevnar 13 32918 Given 10/14/2011 Zoster Vaccine [id number] 03729 Given 01/03/2002 Influenza Virus Vaccine 67815 Given 01/17/2001 Influenza Virus Vaccine 20074 Given 03/04/2000 Influenza Virus Vaccine 73761 Given 01/05/1999 Influenza Virus Vaccine Vital Signs [...] Result H/L Range Note Laboratory test finding 02/26/2020 [facility] Client Services Analyst: [place] [address] [phone] Magnesium, Serum <pending> Laboratory test finding 02/06/2020 [facility] [address] [place] [address] [phone] C Reactive Protein Quantitativ 1.09 mg/dL High 0 .00-0.30 Complete Blood Count 02/06/2020 [facility] lissa hankins Client Services Analyst: [place] [address] [phone] WBC 6.2 x10*3/UL 4.1 - 10.9 RBC [...] 2.0 - 7.8 Laboratory test finding 02/06/2020 [facility] jacqueline pc Client Services Analyst: [place] [address] [phone] Sed Rate 42 mm/hr High 0 - 15 Comprehensive Chem Profile 02/06/2020 [facility] Client Services Analyst: [place] [address] [phone] Glucose 106 mg/dL High 74 - 99 [...] mL/min >60 2 Laboratory test finding 01/08/2020 [facility] [address] [place] [address] [phone] Lactic Acid Sepsis Protocol 4.9 mmol/L Critical high 0 .4-2.0 3 Laboratory test finding 01/08/[address] [address] [phone] Platelet Estimate DECREASED Normal Normal NT-Pro BNP 03772 pg/mL High <450 Differential 01/08/2020 [facility] nter [address] [place] [address] [phone] Neutrophils 80 % High 28-66 Bands 12 % High < 11 Lymphocytes 5 % Low 16-44 Monocytes 2 % Normal 0-5 Metamyelocytes 1 % High 0-0 Macrocytosis 1+ Normal Dohle Bodies 1+ Normal CBC With Differential 01/08/[address] [address] [phone] White Blood Count 16.1 10 High 4.0-10.0 [...] % High 0-0 Basic Metabolic Profile 01/08/2020 [facility] [address] [place] [address] [phone] Glucose, Fasting 167 mg/dL High 70-100 Blood [...] 9.9 mg/dL Normal 8.8-10.2 Liver Profile 01/08/2020 [facility] nter [address] [place] [address] [phone] Ast/Sgot 66 U/L High 7-37 Alt/SGPT 35 U/L Normal 12-78 Alkaline Phosphatase 82 U/L Normal 45-117 Bilirubin,Total 2.9 mg/dL High 0.2-1.0 Bilirubin,Direct 0.6 mg/dL High 0.0-0.2 Total Protein 7.2 GM/DL Normal 6.4-8.2 Albumin 3.3 GM/DL Normal 3.2-5.2 Albumin/Globulin Ratio 0.8 Low 1.2-2.2 Cardiac Marker Panel 01/08/2020 [facility] C enter [address] [place] [address] [phone] CPK Creatine Phosphokinase 813 U/L High 26-19 2 CK-MB Value Mass 5.8 NG/ML High <3.6 MB/CK Relative Index 0.71 Normal < Or =4 5 Troponin I 0.25 NG/ML High < 0.10 6 Ua W/ Reflex To Culture 01/08/2020 [facility] [address] [place] [address] [phone] Appearance, Urine RFX CLOUDY High Clear Color, Urine RFX MAGGY Normal Yellow PH,Urine RFX 6.0 units Normal 5.0-9.0 Specific [place] Ur Auto RFX 1.013 Normal 1.002-1.035 Protein, [...] /LPF Normal 0-1 Complete Blood Count 12/11/2019 [facility] s, pc Client Services Analyst: [place] [address] [phone] WBC 5.5 x10*3/UL 4.1 - 10.9 7 [...] 2.0 - 7.8 Basic Metabolic Panel 12/11/2019 [facility] Client Services Analyst: [place] [address] [phone] Glucose 108 mg/dL High 74 - 99 [...] mL/min >60 9 Ua Dipstick Only 12/11/2019 [facility] , Client Services Analyst: Dr Jake Guajardo [place], [place] [id number] [phone] Urine Color YELLOW Yellow Urine Appearance TURBID Abnormal Clear Urine PH 8.0 units 5.0 - 9.0 Urine Specific [place] 1.010 1.005 - 1.030 Urine Leukocytes NEGATIVE Negative Urine Blood NEGATIVE Negative Urine Protein NEGATIVE Negative -Trace Urine Glucose NEGATIVE mg/dL Negative Urine Nitrite POSITIVE Abnormal Negative Urine Ketone NEGATIVE mg/dL Negative Urine Bilirubin NEGATIVE Negative Urine Urobilinogen 0.2 mg/dL 0.2 - 1.0 Microalbumin/Creatinine Urine 12/11/2019 [facility], Client Services Analyst: [place] [address] [phone] Microalbumin Urine 18.6 mg/L 1.3 - 20.0 Urine Creatinine 48.9 mg/dL 30.0 - 125.0 Microalb/Creat Ratio 38.0 ug/mg High 0.0 - 30.0 Complete Blood Count 08/28/2019 [facility], Client Services Analyst: Dr Jake Guajardo [place], [place] [id number] [phone] WBC 4.0 x10*3/UL Low 4.1 - 10.9 [...] 2.0 - 7.8 Laboratory test finding 08/28/2019 [facility] jacqueline, Client Services Analyst: Dr Jake [place]ardo [place] [id number] [phone] Magnesium 2.1 mg/dL 1.8 - 2.4 Comprehensive Chem Profile 08/28/2019 [facility] Client Services Analyst: [place] [address] [phone] Glucose 94 mg/dL 74 - 99 10 [...] 60 mL/min >60 11 Lipid Profile 08/28/2019 [facility] , Client Services Analyst: Dr [place], [place] [address] [phone] Cholesterol 169 mg/dL 131 - 200 Triglycerides 146 mg/dL 30 - 150 HDL Cholesterol 61 mg/dL High 35 - 60 LDL (Calculated) 79 CALC 50 - 159 Laboratory test finding 08/28/2019 [facility] jacqueline, lissa Client Services Analyst: [place] [address] [phone] Thyroid Stimulating Hormone 1.29 uIU/mL 0.3 6 - 3.74 Ua Dipstick Only 08/28/2019 [facility] Client Services Analyst: [place] [address] [phone] Urine Color YELLOW Yellow Urine Appearance CLOUDY Abnormal Clear Urine PH 6.0 units 5.0 - 9.0 Urine Specific [place] 1.020 1.005 - 1.030 Urine Leukocytes MODERATE [...] LITTLE GFR LEFT ESRD GFR <15 ON GRAVITY METER OBSERVER 3 Y/N query for Sepsis Lactate Rule: Y 4 Units are mL/min/1.73 m2 Chronic Kidney Disease Staging per NKF: Stage I & II GFR >=60 Normal to Mildly Decreased Stage III GFR 30-59 Moderately Decreased Stage IV GFR 15-29 Severely Decreased Stage V GFR <15 Very Little GFR Left ESRD GFR <15 on GRAVITY METER OBSERVER 5 DIAGNOSIS CRITERIA MMB ng/ml Relative Index (RI) NON-AMI < or = 5 N/A RIOS ZONE > 5 < or = 4 AMI > 5 > 4 6 Troponin I Reference Interva l for Siemens [place] LOCI: 99th Percentile= 0.00-0.045 ng/ml Risk Stratification: [...] LITTLE GFR LEFT ESRD GFR <15 ON GRAVITY METER OBSERVER 10 100-125 mg/dL PRE-DIABET ES/FASTING >126 mg/dL DIABETES/FASTING 11 CHRONIC KIDNEY DISEASE STAGI NG PER NKF STAGE I & II GFR >= 60 NORMAL TO MILDLY DECREASED STAGE III GFR 30-59 MODERATELY DECREASED STAGE IV GFR 15-29 SEVERELY DECREASED STAGE V GFR <15 VERY LITTLE GFR LEFT ESRD GFR <15 ON GRAVITY METER OBSERVER Procedures Date Code Description Status 08/19/2016 [id number] Bone Mineral Density Test Comple angella 11/12/2015 [id number] Mammogram Completed 11/06/2014 [id number] Mammogram Completed 11/05/2013 [id number] Bone Mineral Density Test Comple angella 11/05/2013 [id number] Mammogram Completed 11/02/2012 [id number] Mammogram Completed 01/10/2012 [id number] Colonoscopy Completed 11/02/2011 [id number] Mammogram Completed 10/15/2011 [id number] Bone Mineral Density Test Comple angella 10/20/2010 [id number] Mammogram Completed 10/13/2010 [id number] Mammogram Completed 10/08/2009 [id number] Mammogram Completed 10/07/2009 [id number] Bone Mineral Density Test Comple angella 01/16/2001 [id number] Colonoscopy Completed Medical Devices Description No Information Available Encounters Type Date Location Provider Dx Diagnosis [facility] R29.6 Repeated falls A41.51 Sepsis due to Escherichia co li [E. coli] K80.00 Calculus of gallbladder w ac alturas cholecyst w/o obstruction I10 Essential (primary) hyperten vy R60.0 Localized edema G35 Multiple sclerosis M19.90 Unspecified osteoarthritis, unspecified site M81.0 Age-related osteoporosis w/o current pathological fracture R19.7 Diarrhea, unspecified Office Visit 12/12/2019 10:45a [facility] I10 Essential (primary) hyperten vy E78.00 Pure hypercholesterolemia, u nspecified R60.0 Localized edema M81.0 Age-related osteoporosis w/o current pathological fracture R73.09 Other abnormal glucose R19.7 Diarrhea, unspecified G35 Multiple sclerosis Z85.3 Personal history of malignan t neoplasm of breast R32 Unspecified urinary incontin ence Z23 Encounter for immunization Office Visit 08/28/2019 11:00a [facility] Patrick Akbar M.D. I10 Essential (primary) hyperten vy [...] 11:00 am - Sherri Akbar M.D. at [facility] * 08/12/2020 10:10 am - Lab Schedule at [facility] * 08/13/2020 11:00 am - Sherri Akbar M.D. at [facility] * 08/13/2020 10:40 am - Nurse #2 at [facility] 02/06/2020 - Sherri Akbar M.D.* [...]
--- OUTSIDE RECORDS SUMMARY | 2020-04-29 14:52 | CCD | Continuity of Care Document ---
Author Author Paola PARISI MD Organization Unknown Address [address] [facility] [address] [place] [address] Phone [phone] Care Team Providers Care Customs Consultant Name Role Phone Sherri Rojas [facility].D. [facility] [phone] Problems Active Problems Provider Date Essential hypertension Vinnie Parisi JR, MD Onset: 02/06/20 20 Social History Type Date Description Comments Sex Unknown ETOH Use Never used alcohol Tobacco Use Start: Unknown Patient has never smoked Recreational Drug Use Denies Drug Use Allergies, Adverse Reactions, Alerts Description No Known Drug Allergies Medications Active Medications SIG Qnty Indications Ordering Provide r Date Amlodipine Besylate 5mg Tablets 1 every night 30tabs Unknown Oxybutynin Chloride ER 5mg Tablets ER 24HR 1 twice a day 30tabs Unknown Travatan Z 0.004% Solution 1 both eyes every day Unknown Aspir-[address] qd Unknown Losartan Potassium 100mg Tablets 1 every day Unknown Diphenoxylate Hydrochloride/Atropine Sul fate 2.5-0.025mg Tablets 1 by mouth every day Unknown Gabapentin 300mg Capsules 1 every night 60caps Unknown Dorzolamide HCL/Timolol Maleate 22.3-6.8mg/ml Solution 1 drop OU bid Unknown Potassium Chloride Alice ER 10Meq Tablets ER 1 every day Unknown Pravastatin Sodium 20mg Tablets 1 every day Unknown Tylenol Extra Strength 500mg Table ts 1 Tab PO hs Unknown Fibercon 625mg Tablets 3-6 qd Unknown Vitamin D (Cholecalciferol) 25mcg (1000 Ut) Tablets 1 Tab PO bid Unknown Calcium 500+D High Potency [id number]-Pirz Tablets 1 Tab PO bid Unknown Garlic 500mg Tablets qd Unknown Immunizations Description No Information Available Vital Signs Date Vital Result Comment 02/13/2020 8:34am BP Systolic 113 mmHg BP Diastolic 78 mmHg Heart Rate 101 /min Height 57 inches 4'9" Weight 155.00 lb BMI (Body Mass Index) 33.5 kg/m2 Ingram Body Weight 100 lb Weight 70.308 kg 11/03/2011 9:00am BP Systolic 132 mmHg BP Diastolic 81 mmHg Height 57 inches 4'9" Weight 145.00 lb BMI (Body Mass Index) 31.4 kg/m2 Ingram Body Weight 100 lb Weight 65.772 kg Results Description No Information Available Procedures Description No Information Available Medical Devices Description No Information Available Encounters Description No Information Available Assessments Description No Information Available Plan of Treatment 11/03/2011 - Peter Funez MD* 787.99 Irregular Bowel Habits/change In Bowel Habits * 564.00 Constipation Unspecified * 787.91 Diarrhea * 787.60 Full Incontinence Of Feces * * New Medication:* Amitiza 24 mcg * New Orders:* Colonoscopy, Ordered: 11/03/11 * Comments:* I suspect constipation/delayed transit in this MS patient as primary problem--diarrhea/fecal incontinence due to overflow. * Recommendations:* -promote more frequent emptying of stool--will try combo of Fiber supplement and Amitiza. may need addition of miralax but will see results first. Functional Status Description No Information Available Mental Status Description No Information Available Referrals Refer to Reason for Referral Status Appt Date Peter Funez MD [facility] Scheduled 02/13/2020 [facility], Gastroenterology [address], [address] [place] [address] [phone]
--- OUTSIDE RECORDS SUMMARY | 2020-04-29 14:52 | CCD ---
Author Author [facility] Organization [facility] Address Unknown Phone Unavailable Care Team Providers Care Swaging Machine Operator Name Role Phone Tapan Hansen Unavailable PROBLEMS Type Condition ICD9-CM Code [id number] Code Onset Dates Condition S tatus SNOMED Code Notes Problem Left ureteral stone N20.1 Active 92790315 Problem Acute pyelonephritis N10 Active 55670816 ALLERGIES No Known Allergies ENCOUNTERS from 1935 to 2020-02-12 Encounter Location Date Provider Diagnosis [facility] [address] [address] Jan, Tapan Hansen Left ureteral stone N20.1 and Acute pyelonephritis N10 IMMUNIZATIONS No Information SOCIAL HISTORY Tobacco Use: Social History Observation Description Date Details (start date - stop date) Never Smoker Sex Assigned At : Social History Observation Description Sex Assigned At Unknown Language: Question Answer Notes Languages spoken: Yi Scientology: Question Answer Notes Scientology No holiness beliefs that would impact health care. Sexual [...] No Information VITAL SIGNS Weight 162 lbs Jan, Height 58 in Jan, BMI 33.85 kg/m2 Jan, Heart Rate 97 /min Jan, Respiratory Rate 17 /min Jan, Temperature 96.8 degrees Fahrenheit Jan, Oximetry 96 Jan, Blood pressure systolic 118 mm Hg Jan, Blood pressure diastolic 68 MANUAL mm Hg Jan, MEDICATIONS Medication SIG (Take, Route, Frequency, Duration) [...] Information RESULTS No Results REASON FOR VISIT SIGN CONSENT FOR SURGERY MEDICAL (GENERAL) HISTORY Type Description Date Medical History [place] Medical History KIDNEY STONE Surgical History HYSTERECTOMY Surgical History RIGHT MASTECTOMY WITH RECONSTRUCTION Hospitalization History SEPSIS FROM KIDNEY STONE 01/2020 Goals Section No Information Health Concerns No Information MEDICAL EQUIPMENT No Information MENTAL STATUS No Information FUNCTIONAL STATUS No Information ASSESSMENTS Encounter Date Diagnosis Assessment Notes Treatment Notes Treatm ent Clinical Notes Jan, Left ureteral stone (ICD-10 - N20.1) Jan, Acute pyelonephritis (ICD-10 - N10) PLAN OF TREATMENT Treatment Notes Test Name Order Date URINE CULTURE 2020-02-12 Electrocardiogram (EKG) 2020-02-12 Next Appt Details Provider Name:Tapan Doug Hansen, 2020-03-13 09:30:00 AM, [address], [place], [address], Insurance Providers Payer Name Payer Address Payer Phone Insured Name Patient Relati onship to Insured Coverage Start Date Coverage End Date MEDICARE Part A and B [address] [facility] [id number] [phone] RICCARDO SAMUELS [facility] [address] [address] [facility] [phone] RICCARDO SAMUELS
--- OUTSIDE RECORDS SUMMARY | 2020-04-29 14:52 | CCD | Continuity of Care Document ---
Author Author Paola Akbar M.D. Organization Unknown Address [address] [place] [address] Phone [phone] Care Team Providers Care Senior Marketing Specialist Name Role Phone Sherri Akbar MD AUTM [phone] Melody Sidhu MD AUTM [phone] Erna Hill MD AUTM [phone] [facility] AUTM [phone] [facility] AUTM [phone] Problems Active Problems Provider Date Benign essential hypertension Sherri Akbar M.D. Onset: 01/17/2011 Pure hypercholesterolemia Sherri Akbar M.D. Onset: Personal history of primary malignant neoplasm of barbra st Sherri Akbar M.D. Onset: 01/17/2011 Multiple sclerosis Sherri Akbar M.D. Onset: 1 Neutropenia Sherri Akbar M.D. Onset: 1 Abnormal glucose level Sherri Akbar M.D. Onset: 2010 Osteochondropathy Sherri Akbar M.D. Onset: 1 Medications Fdc (Current) Use Sherri Akbar M.D. Onset: 01/17/2011 [...] Akbar M.D. 01/18/2011 Calcium 500+D High Potency [id number] Tablets 1 po bid Sherri Akbar M.D. [...] CPT Code Status Date Vaccine Lot # [id number] Given 12/12/2019 Influenza Vaccin e Quadrivalent Preser/Antibiotic Free Im Use [id number] U-Flu Given 12/08/2018 Influenza,Unspecified 33034 Given 12/08/2018 Shingrix Zoster Vaccine (HZV), Recombinant, Subunit, Adjuvanted 59356 Given 10/05/2018 Shingrix Zoster Vaccine (HZV), Recombinant, Subunit, Adjuvanted U-Flu Given 12/19/2017 Influenza,Unspecified 78363 Given 08/11/2016 Tetanus/Diptheria(Td)Toxoids Preservative Free [id number] U-PneuC Given 02/04/2016 Prevnar 13 27475 Given 10/14/2011 Zoster Vaccine [id number] 47305 Given 01/03/2002 Influenza Virus Vaccine 85258 Given 01/17/2001 Influenza Virus Vaccine 87832 Given 03/04/2000 Influenza Virus Vaccine 04755 Given 01/05/1999 Influenza Virus Vaccine Vital Signs [...] H/L Range Note Laboratory test finding 02/06/2020 [facility] [address] [place] [address] [phone] High Sensitivity C-Reactive Protein <pending> Complete Blood Count 02/06/2020 [facility] lissa hankins [place] [employer]: [place] [address] [phone] WBC 6.2 x10*3/UL 4.1 - 10.9 RBC [...] 2.0 - 7.8 Laboratory test finding 02/06/[address] [facility] lissa phillips [place] [employer]: [place] [address] [phone] Sed Rate 42 mm/hr High 0 - 15 Comprehensive Chem Profile 02/06/2020 [facility]ckett [place] [employer]: [place] [address] [phone] Glucose 106 mg/dL High 74 - 99 [...] mL/min >60 2 Laboratory test finding 01/08/[address] [address] [phone] Lactic Acid Sepsis Protocol 4.9 mmol/L Critical high 0 .4-2.0 3 Laboratory test finding 01/08/2020 [place] [id number] [phone] Platelet Estimate DECREASED Normal Normal NT-Pro BNP 57249 pg/mL High <450 Differential 01/08/2020 [facility] nter [address] [place] [address] [phone] Neutrophils 80 % High 28-66 Bands 12 % High < 11 Lymphocytes 5 % Low 16-44 Monocytes 2 % Normal 0-5 Metamyelocytes 1 % High 0-0 Macrocytosis 1+ Normal Dohle Bodies 1+ Normal CBC With Differential 01/08/[address] [address] [phone] White Blood Count 16.1 10 High 4.0-10.0 [...] % High 0-0 Basic Metabolic Profile 01/08/2020 [facility] [address] [place] [address] [phone] Glucose, Fasting 167 mg/dL High 70-100 Blood [...] 9.9 mg/dL Normal 8.8-10.2 Liver Profile 01/08/2020 [facility] nter [address] [place] [address] [phone] Ast/Sgot 66 U/L High 7-37 Alt/SGPT 35 U/L Normal 12-78 Alkaline Phosphatase 82 U/L Normal 45-117 Bilirubin,Total 2.9 mg/dL High 0.2-1.0 Bilirubin,Direct 0.6 mg/dL High 0.0-0.2 Total Protein 7.2 GM/DL Normal 6.4-8.2 Albumin 3.3 GM/DL Normal 3.2-5.2 Albumin/Globulin Ratio 0.8 Low 1.2-2.2 Cardiac Marker Panel 01/08/2020 [facility] enter [address] [place] [address] [phone] CPK Creatine Phosphokinase 813 U/L High 26-19 2 CK-MB Value Mass 5.8 NG/ML High <3.6 MB/CK Relative Index 0.71 Normal < Or =4 5 Troponin I 0.25 NG/ML High < 0.10 6 Ua W/ Reflex To Culture 01/08/2020 [facility] [address] [place] [address] [phone] Appearance, Urine RFX CLOUDY High Clear Color, Urine RFX MAGGY Normal Yellow PH,Urine RFX 6.0 units Normal 5.0-9.0 Specific [place] Ur Auto RFX 1.013 Normal 1.002-1.035 Protein, [...] /LPF Normal 0-1 Complete Blood Count 12/11/2019 [facility] [place] [employer]: [place] [address] [phone] WBC 5.5 x10*3/UL 4.1 - 10.9 7 [...] 2.0 - 7.8 Basic Metabolic Panel 12/11/2019 [facility] [place] [employer]: [place] [address] [phone] Glucose 108 mg/dL High 74 - 99 [...] mL/min >60 9 Ua Dipstick Only 12/11/2019 [facility] , [place] [employer]: Dr Jake Guajardo [place] [id number] [phone] Urine Color YELLOW Yellow Urine Appearance TURBID Abnormal Clear Urine PH 8.0 units 5.0 - 9.0 Urine Specific [place] 1.010 1.005 - 1.030 Urine Leukocytes NEGATIVE Negative Urine Blood NEGATIVE Negative Urine Protein NEGATIVE Negative -Trace Urine Glucose NEGATIVE mg/dL Negative Urine Nitrite POSITIVE Abnormal Negative Urine Ketone NEGATIVE mg/dL Negative Urine Bilirubin NEGATIVE Negative Urine Urobilinogen 0.2 mg/dL 0.2 - 1.0 Microalbumin/Creatinine Urine 12/11/2019 [facility] [place] [facility]: Dr Jake Guajardo [place] [id number] [phone] Microalbumin Urine 18.6 mg/L 1.3 - 20.0 Urine Creatinine 48.9 mg/dL 30.0 - 125.0 Microalb/Creat Ratio 38.0 ug/mg High 0.0 - 30.0 Complete Blood Count 08/28/2019 [facility], [place] [employer]: Dr Jake Guajardo [place], [place] [address] [phone] WBC 4.0 x10*3/UL Low 4.1 - 10.9 [...] 2.0 - 7.8 Laboratory test finding 08/28/[address] [facility] jacqueline, [place] [employer]: [place] [address] [phone] Magnesium 2.1 mg/dL 1.8 - 2.4 Comprehensive Chem Profile 08/28/2019 [facility] [place]: [facility] [place] [address] [phone] Glucose 94 mg/dL 74 - 99 10 [...] 60 mL/min >60 11 Lipid Profile 08/28/2019 [facility] , [place] [employer]: [place] [address] [phone] Cholesterol 169 mg/dL 131 - 200 Triglycerides 146 mg/dL 30 - 150 HDL Cholesterol 61 mg/dL High 35 - 60 LDL (Calculated) 79 CALC 50 - 159 Laboratory test finding 08/28/[address] [facility] lissa phillips [place] [employer]: Dr Jake Guajardo [place], [place] [address] [phone] Thyroid Stimulating Hormone 1.29 uIU/mL 0.3 6 - 3.74 Ua Dipstick Only 08/28/2019 [facility] [place] [employer]: Dr Jake Guajardo [place], [place] [address] [phone] Urine Color YELLOW Yellow Urine Appearance CLOUDY Abnormal Clear Urine PH 6.0 units 5.0 - 9.0 Urine Specific [place] 1.020 1.005 - 1.030 Urine Leukocytes MODERATE [...] LITTLE GFR LEFT ESRD GFR <15 ON PERIOPERATIVE MANAGER 3 Y/N query for Sepsis Lactate Rule: Y 4 Units are mL/min/1.73 m2 Chronic Kidney Disease Staging per NKF: Stage I & II GFR >=60 Normal to Mildly Decreased Stage III GFR 30-59 Moderately Decreased Stage IV GFR 15-29 Severely Decreased Stage V GFR <15 Very Little GFR Left ESRD GFR <15 on PERIOPERATIVE MANAGER 5 DIAGNOSIS CRITERIA MMB ng/ml Relative Index (RI) NON-AMI < or = 5 N/A RIOS ZONE > 5 < or = 4 AMI > 5 > 4 6 Troponin I Reference Interva l for HDF LOCI: 99th Percentile= 0.00-0.045 ng/ml Risk Stratification: [...] LITTLE GFR LEFT ESRD GFR <15 ON PERIOPERATIVE MANAGER 10 100-125 mg/dL PRE-DIABET ES/FASTING >126 mg/dL DIABETES/FASTING 11 CHRONIC KIDNEY DISEASE STAGI NG PER NKF STAGE I & II GFR >= 60 NORMAL TO MILDLY DECREASED STAGE III GFR 30-59 MODERATELY DECREASED STAGE IV GFR 15-29 SEVERELY DECREASED STAGE V GFR <15 VERY LITTLE GFR LEFT ESRD GFR <15 ON PERIOPERATIVE MANAGER Procedures Date Code Description Status 08/19/2016 916618582 Bone Mineral Density Test Comple angella 11/12/2015 [id number] Mammogram Completed 11/06/2014 [id number] Mammogram Completed 11/05/2013 [id number] Bone Mineral Density Test Comple angella 11/05/2013 [id number] Mammogram Completed 11/02/2012 [id number] Mammogram Completed 01/10/2012 [id number] Colonoscopy Completed 11/02/2011 [id number] Mammogram Completed 10/15/2011 [id number] Bone Mineral Density Test Comple angella 10/20/2010 [id number] Mammogram Completed 10/13/2010 [id number] Mammogram Completed 10/08/2009 [id number] Mammogram Completed 10/07/2009 [id number] Bone Mineral Density Test Comple angella 01/16/2001 [id number] Colonoscopy Completed Medical Devices Description No Information Available Encounters Type Date Location Provider Dx Diagnosis Office Visit 12/12/2019 10:[facility]a [facility] I10 Essential (primary) hyperten vy E78.00 Pure hypercholesterolemia, u nspecified R60.0 Localized edema M81.0 Age-related osteoporosis w/o current pathological fracture R73.09 Other abnormal glucose R19.7 Diarrhea, unspecified G35 Multiple sclerosis Z85.3 Personal history of malignan t neoplasm of breast R32 Unspecified urinary incontin ence Z23 Encounter for immunization Office Visit 08/28/2019 11:[facility]a [facility] 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 at [facility] * 08/12/2020 10:10 am - Lab Schedule at [facility] * 08/13/2020 11:00 am - Sherri Akbar M.D. at [facility] * 08/13/2020 10:40 am - Nurse #2 at [facility] 12/12/2019 - Sherri Akbar M.D.* I10 Essential (primary) hypertension * E78.00 Pure hypercholesterolemia, unspecified * R60.0 Localized edema * M81.0 Age-related osteoporosis without current pathological fracture * R73.09 Other abnormal glucose * R19.7 Diarrhea, unspecified * G35 Multiple sclerosis * Z85.3 Personal history of malignant neoplasm of breast * R32 Unspecified urinary incontinence * Z23 Encounter for immunization * All * Comments:* 10. Obesity. Dietary advice given.11. OA. She is using walker. She is not falling. Caution recommended. 12. Health maintenance. Flu shot reviewed as well as the COVID safety. Functional Status Description No Information Available Mental Status Description No Information Available Referrals Description No Information Available
--- OUTSIDE RECORDS SUMMARY | 2020-04-29 14:52 | CCD | Continuity of Care Document ---
Author Author Paola Akbar M.D. Organization Unknown Address [address] [place] [address] Phone [phone] Care Team Providers Care Md [facility] Name Role Phone Sherri Akbar MD AUTM [phone] Melody Sidhu MD AUTM [phone] Erna Hill MD AUTM [phone] [facility] AUTM [phone] [facility] AUTM Problems Active Problems Provider [...] Osteochondropathy Sherri Akbar M.D. Onset: 1 Medications Senior Living (Current) Use Sherri Akbar M.D. Onset: 01/17/2011 [...] Akbar M.D. 01/18/2011 Calcium 500+D High Potency [id number] Tablets 1 po bid Sherri Akbar M.D. [...] CPT Code Status Date Vaccine Lot # [id number] Given 12/12/2019 Influenza Vaccin e Quadrivalent Preser/Antibiotic Free Im Use [id number] U-Flu Given 12/08/2018 Influenza,Unspecified 88512 Given 12/08/2018 Shingrix Zoster Vaccine (HZV), Recombinant, Subunit, Adjuvanted 81367 Given 10/05/2018 Shingrix Zoster Vaccine (HZV), Recombinant, Subunit, Adjuvanted U-Flu Given 12/19/2017 Influenza,Unspecified 30076 Given 08/11/2016 Tetanus/Diptheria(Td)Toxoids Preservative Free a097a U-PneuC Given 02/04/2016 Prevnar 13 38651 Given 10/14/2011 Zoster Vaccine [id number] 62878 Given 01/03/2002 Influenza Virus Vaccine 28164 Given 01/17/2001 Influenza Virus Vaccine 14050 Given 03/04/2000 Influenza Virus Vaccine 99312 Given 01/05/1999 Influenza Virus Vaccine Vital Signs [...] H/L Range Note Laboratory test finding 02/06/2020 [facility] [address] [place] [address] [phone] C Reactive Protein Quantitativ 1.09 mg/dL High 0 .00-0.30 Complete Blood Count 02/06/2020 [facility] lissa hankins [facility] Manager: [place] [address] [phone] WBC 6.2 x10*3/UL 4.1 - 10.9 RBC [...] 2.0 - 7.8 Laboratory test finding 02/06/2020 [facility] [facility] lissa phillips [facility] Manager: [place] [address] [phone] Sed Rate 42 mm/hr High 0 - 15 Comprehensive Chem Profile 02/06/2020 [facility]ck[facility] Manager: [place] [address] [phone] Glucose 106 mg/dL High 74 - 99 [...] mL/min >60 2 Laboratory test finding 01/08/[address] [address] [phone] Lactic Acid Sepsis Protocol 4.9 mmol/L Critical high 0 .4-2.0 3 Laboratory test finding 01/08/2020 [place] [id number] [phone] Platelet Estimate DECREASED Normal Normal NT-Pro BNP 15742 pg/mL High <450 Differential 01/08/2020 [facility] nter [address] [place] [address] [phone] Neutrophils 80 % High 28-66 Bands 12 % High < 11 Lymphocytes 5 % Low 16-44 Monocytes 2 % Normal 0-5 Metamyelocytes 1 % High 0-0 Macrocytosis 1+ Normal Dohle Bodies 1+ Normal CBC With Differential 01/08/[address] [address] [phone] White Blood Count 16.1 10 High 4.0-10.0 [...] % High 0-0 Basic Metabolic Profile 01/08/2020 [facility] [address] [place] [address] [phone] Glucose, Fasting 167 mg/dL High 70-100 Blood [...] 9.9 mg/dL Normal 8.8-10.2 Liver Profile 01/08/2020 [facility] nter [address] [place] [address] [phone] Ast/Sgot 66 U/L High 7-37 Alt/SGPT 35 U/L Normal 12-78 Alkaline Phosphatase 82 U/L Normal 45-117 Bilirubin,Total 2.9 mg/dL High 0.2-1.0 Bilirubin,Direct 0.6 mg/dL High 0.0-0.2 Total Protein 7.2 GM/DL Normal 6.4-8.2 Albumin 3.3 GM/DL Normal 3.2-5.2 Albumin/Globulin Ratio 0.8 Low 1.2-2.2 Cardiac Marker Panel 01/08/2020 [facility] enter [address] [place] [address] [phone] CPK Creatine Phosphokinase 813 U/L High 26-19 2 CK-MB Value Mass 5.8 NG/ML High <3.6 MB/CK Relative Index 0.71 Normal < Or =4 5 Troponin I 0.25 NG/ML High < 0.10 6 Ua W/ Reflex To Culture 01/08/2020 [facility] [address] [place] [address] [phone] Appearance, Urine RFX CLOUDY High Clear Color, Urine RFX MAGGY Normal Yellow PH,Urine RFX 6.0 units Normal 5.0-9.0 Specific [place] Ur Auto RFX 1.013 Normal 1.002-1.035 Protein, [...] /LPF Normal 0-1 Complete Blood Count 12/11/2019 [facility] Manager: [place] [address] [phone] WBC 5.5 x10*3/UL 4.1 - 10.9 7 [...] 2.0 - 7.8 Basic Metabolic Panel 12/11/2019 [facility] Manager: [place] [address] [phone] Glucose 108 mg/dL High 74 - 99 [...] mL/min >60 9 Ua Dipstick Only 12/11/2019 [facility] , [facility] Manager: Dr Jake Guajardo [place], [place] [id number] [phone] Urine Color YELLOW Yellow Urine Appearance TURBID Abnormal Clear Urine PH 8.0 units 5.0 - 9.0 Urine Specific [place] 1.010 1.005 - 1.030 Urine Leukocytes NEGATIVE Negative Urine Blood NEGATIVE Negative Urine Protein NEGATIVE Negative -Trace Urine Glucose NEGATIVE mg/dL Negative Urine Nitrite POSITIVE Abnormal Negative Urine Ketone NEGATIVE mg/dL Negative Urine Bilirubin NEGATIVE Negative Urine Urobilinogen 0.2 mg/dL 0.2 - 1.0 Microalbumin/Creatinine Urine 12/11/2019 [facility], [facility] Manager: [place] [address] [phone] Microalbumin Urine 18.6 mg/L 1.3 - 20.0 Urine Creatinine 48.9 mg/dL 30.0 - 125.0 Microalb/Creat Ratio 38.0 ug/mg High 0.0 - 30.0 Complete Blood Count 08/28/2019 [facility], [facility] Manager: [place] [address] [phone] WBC 4.0 x10*3/UL Low 4.1 - 10.9 [...] 2.0 - 7.8 Laboratory test finding 08/28/2019 [facility] [facility] isdonn, [facility] Manager: [place] [address] [phone] Magnesium 2.1 mg/dL 1.8 - 2.4 Comprehensive Chem Profile 08/28/2019 [facility], [facility] Manager: Dr Jake [place] [address] [phone] Glucose 94 mg/dL 74 - 99 10 [...] 60 mL/min >60 11 Lipid Profile 08/28/2019 [facility] , [facility] Manager: Dr Jake [place] [address] [phone] Cholesterol 169 mg/dL 131 - 200 Triglycerides 146 mg/dL 30 - 150 HDL Cholesterol 61 mg/dL High 35 - 60 LDL (Calculated) 79 CALC 50 - 159 Laboratory test finding 08/28/2019 [facility] [facility] jacqueline, pc [facility] Manager: Dr Jake Guajardo [place], [place] [address] [phone] Thyroid Stimulating Hormone 1.29 uIU/mL 0.3 6 - 3.74 Ua Dipstick Only 08/28/2019 [facility] , [facility] Manager: Dr Jake Steinlogg [place], [place] [address] [phone] Urine Color YELLOW Yellow Urine Appearance CLOUDY Abnormal Clear Urine PH 6.0 units 5.0 - 9.0 Urine Specific [place] 1.020 1.005 - 1.030 Urine Leukocytes MODERATE [...] LITTLE GFR LEFT ESRD GFR <15 ON HELP DESK INTERNSHIP 3 Y/N query for Sepsis Lactate Rule: Y 4 Units are mL/min/1.73 m2 Chronic Kidney Disease Staging per NKF: Stage I & II GFR >=60 Normal to Mildly Decreased Stage III GFR 30-59 Moderately Decreased Stage IV GFR 15-29 Severely Decreased Stage V GFR <15 Very Little GFR Left ESRD GFR <15 on HELP DESK INTERNSHIP 5 DIAGNOSIS CRITERIA MMB ng/ml Relative Index (RI) NON-AMI < or = 5 N/A RIOS ZONE > 5 < or = 4 AMI > 5 > 4 6 Troponin I Reference Interva l for [employer] LOCI: 99th Percentile= 0.00-0.045 ng/ml Risk Stratification: [...] LITTLE GFR LEFT ESRD GFR <15 ON HELP DESK INTERNSHIP 10 100-125 mg/dL PRE-DIABET ES/FASTING >126 mg/dL DIABETES/FASTING 11 CHRONIC KIDNEY DISEASE STAGI NG PER NKF STAGE I & II GFR >= 60 NORMAL TO MILDLY DECREASED STAGE III GFR 30-59 MODERATELY DECREASED STAGE IV GFR 15-29 SEVERELY DECREASED STAGE V GFR <15 VERY LITTLE GFR LEFT ESRD GFR <15 ON HELP DESK INTERNSHIP Procedures Date Code Description Status 08/19/2016 [id number] Bone Mineral Density Test Comple angella 11/12/2015 [id number] Mammogram Completed 11/06/2014 [id number] Mammogram Completed 11/05/2013 [id number] Bone Mineral Density Test Comple angella 11/05/2013 [id number] Mammogram Completed 11/02/2012 [id number] Mammogram Completed 01/10/2012 [id number] Colonoscopy Completed 11/02/2011 [id number] Mammogram Completed 10/15/2011 [id number] Bone Mineral Density Test Comple [facility] 10/20/2010 [id number] Mammogram Completed 10/13/2010 [id number] Mammogram Completed 10/08/2009 [id number] Mammogram Completed 10/07/2009 [id number] Bone Mineral Density Test Comple [facility] 01/16/2001 [id number] Colonoscopy Completed Medical Devices Description No Information Available Encounters Type Date Location Provider Dx Diagnosis Office Visit 12/12/2019 10:45a [facility] M.[facility] I10 Essential (primary) hyperten vy E78.00 Pure hypercholesterolemia, u nspecified R60.0 Localized edema M81.0 Age-related osteoporosis w/o current pathological fracture R73.09 Other abnormal glucose R19.7 Diarrhea, unspecified G35 Multiple sclerosis Z85.3 Personal history of malignan t neoplasm of breast R32 Unspecified urinary incontin ence Z23 Encounter for immunization Office Visit 08/28/2019 11:00a [facility] M.D. I10 Essential (primary) hyperten [...] Akbar M.D. 08/28/2019 E78.00 Pure hypercholesterolemia, unspe cimanan Akbar M.D. 08/28/2019 R60.0 Localized edema Sherri [...] 11:00 am - Sherri Akbar M.D. at [facility] * 08/12/2020 10:10 am - Lab Schedule at [facility] * 08/13/2020 11:00 am - Sherri Akbar M.D. at [facility] * 08/13/2020 10:40 am - [facility] 02/06/2020 - Sherri Akbar M.D.* [...]
--- OUTSIDE RECORDS SUMMARY | 2020-04-29 14:53 | CCD ---
Author Author [facility] Organization [facility] Address Unknown Phone Unavailable Care Team Providers Care Freight Team Associate Name Role Phone Doug Akbar MD Unavailable Unavailable Doug Akbar MD Unavailable Unavailable Doug Akbar MD Unavailable Unavailable Doug Akbar MD Unavailable Unavailable Doug Akbar MD Unavailable Unavailable Doug Akbar MD Unavailable Unavailable Doug Akbar MD Unavailable Unavailable Doug Akbar MD Unavailable Unavailable Doug Akbar MD Unavailable Unavailable Doug Akbar MD Unavailable Unavailable Doug Akbar MD Unavailable Unavailable Doug Akbar MD Unavailable Unavailable Doug Akbar MD Unavailable Unavailable Doug Akbar MD Unavailable Doug Bailon MD Unavailable Unavailable Doug Akbar MD Unavailable Doug Bailon MD Unavailable Unavailable Doug Akbar MD Unavailable Unavailable Doug Akbar MD Unavailable Unavailable Doug Akbar MD Unavailable Unavailable Doug Akbar MD Unavailable Unavailable Doug Akbar MD Unavailable Doug Bailon MD Unavailable Doug Bailon MD Unavailable Doug Bailon MD Unavailable Unavailable Doug Akbar MD Unavailable Unavailable Doug Akbar MD Unavailable Unavailable Doug Akbar MD Unavailable Unavailable Doug Akbar MD Unavailable Unavailable Doug Akbar MD Unavailable Unavailable Doug Akbar MD Unavailable Unavailable Doug Akbar MD Unavailable Unavailable RaffyDoug del rosario MD Unavailable Unavailable Doug Akbar MD Unavailable Unavailable Doug Akbar MD Unavailable Unavailable RaffyDoug del rosario MD Unavailable Unavailable RaffyDoug MD Unavailable Unavailable RaffyDoug del rosario MD Unavailable Unavailable RaffyDoug leon MD Unavailable Unavailable Doug Akbar MD Unavailable Unavailable Doug Akbar MD Unavailable Unavailable Doug Akbar MD Unavailable Unavailable RaffyDoug leon MD Unavailable Unavailable Doug Akbar MD Unavailable Unavailable Doug Akbar MD Unavailable Unavailable Doug Akbar MD Unavailable Unavailable Doug Akbar MD Unavailable Unavailable RaffyDoug leon MD Unavailable Unavailable RaffyDoug leon MD Unavailable Unavailable Doug Akbar MD Unavailable Unavailable Doug Akbar MD Unavailable Unavailable Doug Akbar MD Unavailable Unavailable Doug Akbar MD Unavailable Unavailable Doug Akbar MD Unavailable Unavailable Doug Akbar MD Unavailable Unavailable Doug Akbar MD Unavailable Unavailable Doug Akbar MD Unavailable Unavailable Doug Akbar MD Unavailable Unavailable Doug Akbar MD Unavailable Unavailable Doug Akbar MD Unavailable Unavailable Doug Akbar MD Unavailable Unavailable Doug Akbar MD Unavailable Unavailable Doug Akbar MD Unavailable Unavailable Doug Akbar MD Unavailable Unavailable Doug Akbar MD Unavailable Unavailable Doug Akbar MD Unavailable Unavailable Doug Abkar MD Unavailable Unavailable Doug Akbar MD Unavailable Unavailable Doug Akbar MD Unavailable Unavailable Doug Akbar MD Unavailable Unavailable Doug Akbar MD Unavailable Unavailable Doug Akbar MD Unavailable Unavailable Doug Akbar MD Unavailable Unavailable Doug Akbar MD Unavailable Unavailable Doug Akbar MD Unavailable Unavailable Doug Akbar MD Unavailable Unavailable Doug Akbar MD Unavailable Unavailable Doug Akbar MD Unavailable Unavailable Matt, Barb CHURN DRILLER Unavailable Unavailable Matt, Barb CHURN DRILLER Unavailable Unavailable Matt, Barb CHURN DRILLER Unavailable Unavailable Matt, Barb CHURN DRILLER Unavailable Unavailable Matt, Barb CHURN DRILLER Unavailable Unavailable Matt, Barb CHURN DRILLER Unavailable Unavailable Matt, Barb CHURN DRILLER Unavailable Unavailable Matt, Barb CHURN DRILLER Unavailable Unavailable Matt, Barb CHURN DRILLER Unavailable Unavailable Matt, Barb CHURN DRILLER Unavailable Unavailable Matt, Barb CHURN DRILLER Unavailable Unavailable Matt, Barb CHURN DRILLER Unavailable Unavailable Matt, Barb CHURN DRILLER Unavailable Unavailable Matt, Barb CHURN DRILLER Unavailable Unavailable Matt, Barb CHURN DRILLER Unavailable Unavailable Matt, Barb CHURN DRILLER Unavailable Unavailable Matt, Barb CHURN DRILLER Unavailable Unavailable Matt, Barb CHURN DRILLER Unavailable Unavailable Matt, Barb CHURN DRILLER Unavailable Unavailable Matt, Barb CHURN DRILLER Unavailable Unavailable Matt, Barb CHURN DRILLER Unavailable Unavailable Matt, Barb CHURN DRILLER Unavailable Unavailable Matt, Barb CHURN DRILLER Unavailable Unavailable Matt, Barb CHURN DRILLER Unavailable Unavailable Matt, Barb CHURN DRILLER Unavailable Unavailable Matt, Barb CHURN DRILLER Unavailable Unavailable Matt, Barb CHURN DRILLER Unavailable Unavailable Re-disclosure Warning The records that you are about to access may contain information from federally-assisted alcohol or drug abuse programs. If such information is present, then the following federally mandated warning applies: This information has been disclosed to you from records protected by federal confidentiality rules (42 CFR part 2). The federal rules prohibit you from making any further disclosure of this information unless further disclosure is expressly permitted by the written consent of the person to whom it pertains or as otherwise permitted by 42 CFR part 2. A general authorization for the release of medical or other information is NOT sufficient for this purpose. The Federal rules restrict any use of the information to criminally investigate or prosecute any alcohol or drug abuse patient.The records that you are about to access may contain highly sensitive health information, the redisclosure of which is protected by Article 27-F of the [facility] Public Health law. If you continue you may have access to information: Regarding HIV / AIDS; Provided by facilities licensed or operated by the [facility] Office of Mental Health; or Provided by the [facility] Office for People With Developmental Disabilities. If such information is present, then the following [facility] mandated warning applies: This information has been disclosed to you from confidential records which are protected by state law. State law prohibits you from making any further disclosure of this information without the specific written consent of the person to whom it pertains, or as otherwise permitted by law. Any unauthorized further disclosure in violation of state law may result in a fine or long term sentence or both. A general authorization for the release of medical or other information is NOT sufficient authorization for further disc losure. Family History Family Member Name Family Member Gender Family Member Status Date o f Status Description Data Source(s) Unknown Male Problem [facility] ([facility]) Unknown Male Problem [facility] ([facility]) Encounters Encounter Providers Location Date Indications Data Source(s ) TeleMedicine Phone E/M by Miguel Angel 5-10 Min [address] [place] [address] 04/16/2020 12:00:00 AM EST eCW1 ([facility]) Unknown [address] [facility] [address] 04/14/2020 12:00:00 AM EST eCW1 ([facility]) Outpatient Attender: Barb Palencia 12:00:00 PM EST [facility] ([facility] ) (Cysto1) Urology [address] [place] [address] 03/13/2020 12:00:00 AM EST eCW1 ([facility]) Unknown [address] [facility] [address] 03/10/2020 12:00:00 AM EST eCW1 ([facility]) Outpatient Attender: Sherri Palencia 09:00:00 AM EST MED[facility] ([facility] ) Unknown [address] [facility] [address] 02/26/2020 12:00:00 AM EST eCW1 ([facility]) Unknown [address] [facility] [address] 02/25/2020 12:00:00 AM EST eCW1 ([facility]) Outpatient Attender: Sherri Palencia 08:00:00 AM EST [facility] ([facility] ) Outpatient [address] [facility] [address] 02/06/2020 12:00:00 AM EST eCW1 ([facility]) Outpatient Attender: Sherri Palencia 10:45:00 AM EDT MED[facility] ([facility] ) Outpatient Attender: Sherri Palencia 11:00:00 AM EDT [facility] ([facility] ) Immunizations Vaccine Date Status Description Data Source(s) Influenza, injectable, MDCK, preservative free, marisela valent 12/12/2019 10:50:00 AM EDT completed [facility]) Medications Medication Brand Name Start Date Product Form Dose Route Admi nistrative Instructions Pharmacy Instructions Status Indications Reaction Description Data Source(s) Fluconazole 150 MG Oral Tablet [Diflucan] Diflucan 150 MG Di flucan 150 MG 02/26/2020 12:00:00 AM EST 1.0 {tablet} active Diflucan 150 MG eCW1 ([facility]) Fluconazole 150 MG Oral Tablet [Diflucan] Diflucan 150 MG Di flucan 150 MG 02/26/2020 12:00:00 AM EST 1.0 {tablet} active Diflucan 150 MG eCW1 ([facility]) Oxybutynin chloride 5 MG Oral Tablet Oxybutynin Chloride 03/2019 12:00:00 AM EST ORAL active [facility] ([facility]) Fluconazole 150 MG Oral Tablet [Diflucan] Diflucan 150 MG Di flucan 150 MG 02/26/2020 12:00:00 AM EST 1.0 {tablet} active Diflucan 150 MG eCW1 ([facility]) Fluconazole 150 MG Oral Tablet [Diflucan] Diflucan 150 MG Di flucan 150 MG 02/26/2020 12:00:00 AM EST 1.0 {tablet} active Diflucan 150 MG eCW1 ([facility]) Potassium Chloride 10 MEQ Extended Release Oral Tablet [Klor -Con] Klor-Con 10 02/26/2020 12:00:00 AM EST ORAL active [facility] ([facility]) Fluconazole 150 MG Oral Tablet [Diflucan] Diflucan 150 MG Di flucan 150 MG 02/26/2020 12:00:00 AM EST 1.0 {tablet} active Diflucan 150 MG eCW1 ([facility]) apixaban 5 MG Oral Tablet [Eliquis] Eliquis 02/26/2020 12:00:[address] ORAL active [facility] ([facility]) NITROFURANTOIN, MACROCRYSTALS 50 MG Oral Capsule Nitrofurantoin Macrocrystal 50 MG Nitrofurantoin Macrocrystal 50 MG 01/29/2020 12:00:00 AM EST active Nitrofurantoin Macrocrystal 50 M G eCW1 ([facility]) NITROFURANTOIN, MACROCRYSTALS 50 MG Oral Capsule Nitrofurantoin Macrocrystal 50 MG Nitrofurantoin Macrocrystal 50 MG 01/29/2020 12:00:00 AM EST active Nitrofurantoin Macrocrystal 50 M G eCW1 ([facility]) NITROFURANTOIN, MACROCRYSTALS 50 MG Oral Capsule Nitrofurantoin Macrocrystal 50 MG Nitrofurantoin Macrocrystal 50 MG 01/29/2020 12:00:00 AM EST active Nitrofurantoin Macrocrystal 50 M G eCW1 ([facility]) Administration Of Flu Vaccine 12/12/2019 12:00:00 AM EDT completed [facility]) Medication administered onsite NITROFURANTOIN, MACROCRYSTALS 25 MG / Ni trofurantoin, Monohydrate 75 MG Oral Capsule [Macrobid] Macrobid 08/28/2019 12:00:00 AM EDT ORAL completed [facility] ([facility] ) Insurance Providers Payer name Policy type / Coverage type Policy ID Covered constitution party ID Covered constitution party's relationship to king Policy King Plan Information UMR [facility] [id number] SP [id number] MEDICARE [id number] SP [id number] UMR O [id number] S [id number] MEDICARE C [id number] S [id number] R [facility] [id number] SP [id number] MEDICARE [id number] SP [id number] NOVITAS JL PART B C [id number] S [id number] UMR [facility] [id number] SP [id number] Medicare Natl Govt Servic Medicare Primary [id number] Self [id number] [place] [id number] Self [id number] Umr ([place]) [facility] Part B [id number] Self [id number] MEDICARE [id number] SP [id number] A Medicare Natl Govt Servic Medicare Primary [id number] Self [id number] [place] (Old) [facility] Part B [id number] Self [id number] Medicare Natl Govt Servic Medicare Primary [id number] Self [id number] POMCO [id number] SP [id number] Medicare Natl Govt Servic Medicare Primary [id number] Self [id number] [place] Ppo Medigap Part B [id number] Self [id number] Medicare Natl Govt Servic Medicare Primary [id number] Self [id number] Medicare Natl Govt Servic Medicare Primary [id number] Self [id number] [place] PPO O [id number] S [id number] MEDICARE C [id number] S [id number] A Medicare [place]l Govt Servic Medicare Primary [id number] Self [id number] [place] Ppo Medigap Part B Self Medicare Natl Govt Servic Medicare Primary Self POMCO [id number] SP [id number] [place] PPO S [id number] S [id number] POMCO [id number] SP [id number] A Problems, Conditions, and Diagnoses Code Display Name Description Problem Type Effective Dates Data Source(s) N10 [id number] Acute pyelonephritis Problem 02/06/2020 12:0 0:00 AM EST eCW1 ([facility]) N20.1 Ureteric stone Left ureteral stone Problem 02/06/2020 1 2:00:00 AM EST eCW1 ([facility]) [id number] Essential hypertension Essential hypertension Problem 02/06/2020 12:00:00 AM EST [facility] ([facility] ) Results ID Date Data Source [id number] 03/01/2020 09:32:00 AM EST [facility] ([facility]) Name Value Range Interpretation Code Description Data Eloina rce(s) Supporting Document(s) White Blood Count 10.9 10 4.0-10.0 [facility] ([facility]) Red Blood Count 3.88 10 4.00-5.40 [facility] ([facility]) Hematocrit 38.9 % 36.0-47.0 [facility]) Hemoglobin 12.1 g/dL 12.0-15.5 [facility]) Mean Corpuscular Volume 100.3 fl 80.0-96.0 [facility] ([facility]) Mean Corpuscular Hemoglobin 31.2 pg 27.0-33.0 ME DENT ([facility]) Mean Corpuscular HGB Conc 31.1 g/dL 32.0-36.5 MEDE NT ([facility]) Red Cell Distribution Width 14.6 % 11.5-14.5 ME DENT ([facility]) Lymph % 6.3 % 24.0-44.0 [facility]) Neutrophils % 89.8 % 36.0-66.0 [facility] ([facility]) Platelet Count, Automated 251 10 150-450 MEDE NT ([facility]) Eos % 0.0 % 0.0-3.0 [facility]) Baso % 0.2 % 0.0-1.0 [facility]) [place] % 2.5 % 0.0-5.0 [facility]) Immature Granulocyte % 1.2 % 0-3.0 [facility] ([facility]) Nucleated Red Blood Cell % 0.0 % 0-0 MED ENT ([facility]) Neutrophils # 9.8 10 1.5-8.5 [facility] ([facility]) Lymph # 0.7 10 1.5-5.0 [facility] Eos # 0.0 10 0.0-0.5 [facility] [place] # 0.3 10 0.0-0.8 [facility] Baso # 0.0 10 0.0-0.2 [facility] ID Date Data Source [id number] 03/01/2020 09:32:00 AM EST [facility] ([facility]) Name Value Range Interpretation Code Description Data Eloina rce(s) Supporting Document(s) Prothrombin Time 19.2 s 12.5-14.3 [facility] ([facility]) Inr 1.58 [facility] ([facility]) THERAPUTIC HUMAN INR VALUES INDICATIONS NORMAL RANGES PROPHYLAXIS/TREATMENT OF: VENOUS THROMBOSIS 2.0-3.0 PULMONARY EMBOLISM 2.0-3.0 PREVENTION OF SYSTEMIC EMBOLISM FROM: TISSUE HEART VALVES 2.0-3.0 ACUTE MYOCARDIAL INFARCTION 2.0-3.0 VALVULAR HEART DISEASE 2.0-3.0 ATRIAL FIBRILLATION 2.0-3.0 MECHANICAL VALVES(HIGH RISK) 2.5-3.5 RECURRENT MYOCARDIAL INFARCTION 2.5-3.5 ID Date Data Source [id number] 03/01/2020 09:32:00 AM EST [facility] ([facility]) Name Value Range Interpretation Code Description Data Eloina rce(s) Supporting Document(s) aPTT in Blood by Coagulation assay 55.0 s 24.2-38.5 [facility] ([facility]) ID Date Data Source [id number] 03/01/2020 09:32:00 AM EST [facility] ([facility]) Name Value Range Interpretation Code Description Data Eloina rce(s) Supporting Document(s) CPK Creatine Phosphokinase 213 U/L 26-192 MED ENT ([facility]) MB/CK Relative Index 1.88 [facility] ([facility]) <content>DIAGNOSIS CRITERIA</content>
<content>MMB ng/ml Relative Index (RI)</content>
<content>NON-AMI < or = 5 N/A</content>
<content>RIOS ZONE > 5 < or = 4</content>
<content>AMI > 5 > 4</content>
<content></content> CK-MB Value Mass 4.0 ng/mL [facility] ([facility]) Troponin I 0.03 ng/mL [facility] ([facility]) <content>Troponin I Reference Interval f or [employer] [place] LOCI:</content>
<content></content>
<content>99th Percentile= 0.00-0.045 ng/ml</content>
<content></content>
<content>Risk Stratification:</content>
<content><= 0.10 ng/ml Decreased Risk for Adverse Clinical</content>
<content>Events.</content>
<content>0.10-1.50 ng/ml Increased Risk for Adverse Clinical</content>
<content>Events. Evaluation of additional</content>
<content>criterion and/or repeat testing in 2-6</content>
<content>hours is suggested to rule out myocardial</content>
<content>damage.</content>
<content>>= 1.50 ng/ml Indicative of Myocardial Injury.</content>
<content></content> ID Date Data Source [id number] 03/01/2020 09:32:00 AM EST [facility] ([facility]) Name Value Range Interpretation Code Description Data Eloina rce(s) Supporting Document(s) Ast/Sgot 19 U/L 7-37 [facility] ([facility]) Alkaline Phosphatase 85 U/L 45-117 [facility] ([facility]) Alt/SGPT 15 U/L 12-78 [facility] ([facility]) Bilirubin,Total 1.1 mg/dL 0.2-1.0 [facility] ([facility]) Bilirubin,Direct 0.3 mg/dL 0.0-0.2 [facility] ([facility]) Albumin 2.9 GM/DL 3.2-5.2 [facility] ([facility]) Total Protein 7.5 GM/DL 6.4-8.2 [facility] ([facility]) Albumin/Globulin Ratio 0.6 1.2-2.2 [facility] ([facility]) ID Date Data Source [id number] 03/01/2020 09:32:00 AM EST [facility] ([facility]) Name Value Range Interpretation Code Description Data Eloina rce(s) Supporting Document(s) Glucose, Fasting 161 mg/dL 70-100 [facility] ([facility]) Glomerular Filtration Rate Laboratory test result [facility] ([facility]) <content>Units are mL/min/1.73 m2</content>
<content></content>
<content>Chronic Kidney Disease Staging per NKF:</content>
<content></content>
<content>Stage I & II GFR >=60 Normal to Mildly Decreased</content>
<content>Stage III GFR 30- 59 Moderately Decreased</content>
<content>Stage IV GFR 15-29 Severely Decreased</content>
<content>Stage V GFR <15 Very Little GFR Left</content>
<content>ESRD GFR <15 on JUNIOR QA ANALYST</content>
<content></content> Blood Urea Nitrogen 9 mg/dL 7-18 [facility] ([facility]) Creatinine For GFR 0.76 mg/dL 0.55-1.30 [facility] ([facility]) Potassium Serum 3.6 meq/L 3.5-5.1 [facility] ([facility]) Sodium Level 138 meq/L 136-145 [facility] ([facility]) Chloride Level 102 meq/L 98-107 [facility] ([facility]) Anion Gap 6 meq/L 8-16 [facility] ([facility]) Carbon Dioxide Level 30 meq/L 21-32 [facility] ([facility]) Calcium Level 9.4 mg/dL 8.8-10.2 [facility] ([facility]) ID Date Data Source [id number] 03/01/2020 09:32:00 AM EST [facility] ([facility]) Name Value Range Interpretation Code Description Data Eloina rce(s) Supporting Document(s) Amylase [Enzymatic activity/volume] in Serum or Plasma 27 U/L 25- 115 [facility] ([facility]) Lipoprotein lipase [Enzymatic activity/volume] in Serum or Plasm a 38 U/L 73-393 [facility] ([facility]) Lactate [Mass/volume] in Serum or Plasma 2.2 mmol/L 0.4-2.0 [facility] upper [facility] Y/N query for Sepsis Lactate Rule: Y Natriuretic peptide.B prohormone N-Terminal [Mass/volu me] in Serum or Plasma 3257 pg/mL [facility] ID Date Data Source [id number] 03/01/2020 09:31:00 AM EST [facility] ([facility]) Name Value Range Interpretation Code Description Data Eloina rce(s) Supporting Document(s) ABG pH (Arterial) 7.501 units 7.350-7.450 [facility] ( [facility]) ABG Partial Pressure Co2 40.3 mmHg 35.0-45.0 MEDEN T ([facility]) ABG Total Co2 32.0 meq/L 23.0-31.0 [facility] ([facility]) ABG Partial Pressure O2 85.0 mmHg 75.0-100.0 [facility] ABG Hco3 30.8 meq/L 22.0-26.0 [facility] ABG Standard Hco3 30.9 meq/L 22.0-26.0 [facility] ([facility]) ABG Base Excess 7.1 [facility] ([facility]) ABG O2 Saturation 97.0 % 95.0-99.0 [facility] ([facility]) ID Date Data Source [id number] 03/01/2020 09:31:00 AM EST [facility] Name Value Range Interpretation Code Description Data Eloina rce(s) Supporting Document(s) Appearance, Urine RFX Laboratory test [facility] Specific [place] Ur Auto RFX 1.014 1.002-1.035 [facility] ([facility]) PH,Urine RFX 6.0 units 5.0-9.0 [facility] Color, Urine RFX Laboratory test result [facility] Protein, Urine Auto RFX Laboratory test result [facility] ([facility]) Ketone, Urine Auto RFX Laboratory test result [facility] ([facility]) Glucose, Urine (Ua) Auto RFX Laboratory test result [facility] Bilirubin, Urine Auto RFX Laboratory test result [facility] ([facility]) Urobilinogen, Urine Auto RFX 0.2 mg/dL 0.0-2.0 [facility] Leukocyte Esterase Ur Auto RFX Laboratory test result [facility] ([facility]) Nitrite, Urine Auto RFX Laboratory test result [facility] ([facility]) Blood, Urine Blood RFX Laboratory test result [facility] ([facility]) WBC, Urine Auto RFX 17 /HPF 0-3 [facility] ([facility]) RBC, Urine Auto RFX Laboratory test result 0-3 [facility] ([facility]) Hyaline Cast, Urine Auto RFX 0 /LPF 0-1 M [facility] Squam Epithelial Cell Ur Aurfx 1 /HPF 0-6 [facility] Bacteria, Urine Auto RFX Laboratory test result [facility] ([facility]) Amorphous Sediment RFX Laboratory test result [facility] ([facility]) ID Date Data Source [id number] 03/01/2020 09:31:00 AM EST [facility] Name Value Range Interpretation Code Description Data Eloina rce(s) Supporting Document(s) Blood Type Laboratory test result [facility] ([facility]) AB Screen (Indirect [place])Vis Laboratory test result [facility] ([facility]) ID Date Data Source [id number] 03/01/2020 09:31:00 AM [facility] Name Value Range Interpretation Code Description Data Eloina rce(s) Supporting Document(s) Blood group antibodies identified in Serum or Plasma Laboratory keira t result [facility] ([facility]) ID Date Data Source [id number] 03/01/2020 09:22:00 AM EST [facility] Name Value Range Interpretation Code Description Data Eloina rce(s) Supporting Document(s) Influenza A Amplification Laboratory test result [facility] Negative results do not preclude influen za or RSV virus infection and should not be used as the sole basis for treatment or other patient management decisions. Influenza B Amplification Laboratory test result [facility] Negative results do not preclude influen za or RSV virus infection and should not be used as the sole basis for treatment or other patient management decisions. RSV Amplification Laboratory test result [facility] Negative results do not preclude influen za or RSV virus infection and should not be used as the sole basis for treatment or other patient management decisions. Laboratory test finding (navigational concept) Laboratory test result [facility] A false negative result may occur if a s pecimen is improperly collected, transported or handled. False [...] pathogens. DISCLAIMER: Testing was performed using the [employer] SARS-CoV-2 test. This test was developed and its performance characteristics determined by [employer]. This test has not been FDA cleared [...] the authorization is terminated or revoked sooner. ID Date Data Source [id number] 03/01/2020 09:22:00 AM [facility] Name Value Range Interpretation Code Description Data Eloina rce(s) Supporting Document(s) SARS coronavirus 2 RNA [Presence] in Res piratory specimen by KIP with probe detection [facility] This lab was ordered by [facility] a nd reported by [facility]. ID Date Data Source [id number] 02/29/2020 08:14:00 AM EST [facility] ([facility]) Name Value Range Interpretation Code Description Data Eloina rce(s) Supporting Document(s) Color Laboratory test result [facility] ([facility]) Laboratory test finding (navigational concept) Laboratory test result [facility] ([facility]) Size Laboratory test result [facility] ([facility]) Multiple pieces received. Dimensions of the largest piece reported. Weight 77 mg [facility]) CA Oxalate Dihy 80 % [facility] ([facility]) Composition Laboratory test result [facility] T ([facility]) . Percentage (Represents the % composition) Laboratory test finding (navigational concept) 5 % [facility] ([facility]) Laboratory test finding (navigational concept) Laboratory test result [facility] ([facility]) Ca Ox Monohydrate 15 % [facility] ([facility]) CA Phosphate Laboratory test result [facility] NT ([facility]) Uric Acid Laboratory test result [facility] ([facility]) MG Guille Phos Laboratory test result [facility] ([facility]) Ua Dihydrate Laboratory test result [facility] ([facility]) Amm Acid Urate Laboratory test result ME [facility] ([facility]) Na Acid Urate Laboratory test result [facility] ([facility]) Laboratory test finding (navigational concept) Laboratory test result [facility] ([facility]) Laboratory test finding (navigational concept) Laboratory test result [facility] ([facility]) CA [place] Phos Laboratory test result [facility] ([facility]) Cystine Laboratory test result [facility] ([facility]) CA Bilirubinate Laboratory test result M [facility] ([facility]) Cholesterol Laboratory test result [facility] T ([facility]) CA Carbonate Laboratory test result [facility] ([facility]) Bilirubin Laboratory test result [facility] ([facility]) Laboratory test finding (navigational concept) Laboratory test result [facility] ([facility]) Laboratory test finding (navigational concept) Laboratory test result [facility] ([facility]) Triamterene Laboratory test result [facility] T ([facility]) Laboratory test finding (navigational concept) Laboratory test result [facility] ([facility]) Newberyite Laboratory test result [facility] ([facility]) Dried Blood Laboratory test result [facility] ([facility]) Cell Material Laboratory test result [facility] ([facility]) Laboratory test finding (navigational concept) Laboratory test result [facility] ([facility]) Comment Laboratory test result [facility] ([facility]) Comment Laboratory test result [facility] ([facility]) . Physician questions regarding Calculi Analysis contact [facility] at: [phone]. Comment Laboratory test result [facility] ([facility]) Disclaimer Laboratory test result [facility] ([facility]) . This test was developed and its performance characteristics determined by [facility]. It has not been cleared or approved by the Food and Drug Administration. Performed at: [facility] [address] [place] [address] [address], [place], [place] [id number] Sales Manager: Ren Cheng MD, Phone: [phone] Please Note: Laboratory test result [facility] NT ([facility]) . Calculi report will follow via computer, mail or perfect binder feeder offbearer delivery. Laboratory test finding (navigational concept) Laboratory test result [facility] ([facility]) . Photograph will follow under a separate cover ID Date Data Source [id number] 02/26/2020 10:58:00 AM EST [facility] ([facility]) Name Value Range Interpretation Code Description Data Eloina rce(s) Supporting Document(s) Urea nitrogen [Mass/volume] in Serum or Plasma 6 mg/dL 7-18 [facility] ([facility]) Glucose [Mass/volume] in Serum or Plasma 118 mg/dL 74-99 [facility] ([facility]) 100-125 mg/dL PRE-DIABETES/FASTING >126 mg/dL DIABETES/FASTING Creatinine 0.7 mg/dL 0.6-1.3 [facility] Sodium [Moles/volume] in Serum or Plasma 143 meq/L 136-145 [facility] ([facility]) Potassium [Moles/volume] in Serum or Plasma 3.1 meq/L 3.5-5.1 [facility] ([facility]) NOTE: RESULT VERIFIED. Chloride [Moles/volume] in Serum or Plasma 103 meq/L 98-107 [facility] ([facility]) Carbon dioxide, total [Moles/volume] in Serum or Plasma 29 meq/L 21 -32 [facility] ([facility]) Calcium [Mass/volume] in Serum or Plasma 9.6 mg/dL 8.5-10.1 [facility] ([facility]) Glomerular filtration rate/1.73 sq M pre dicted among blacks [Volume Rate/Area] in Serum or Plasma by Creatinine-based formula (MDRD) Laboratory test result [facility] ([facility]) <content>CHRONIC KIDNEY DISEASE STAGING PER NKF</content>
<content></content>
<content>STAGE I & II GFR >= 60 NORMAL TO MILDLY DECREASED</content>
<content>STAGE III GFR 30-59 MODERATELY DECREASED</content>
<content>STAGE IV GFR 15-29 SEVERELY DECREASED</content>
<content>STAGE V GFR <15 VERY LITTLE GFR LEFT</content>
<content>ESRD GFR <15 ON JUNIOR QA ANALYST</content>
<content></content> Glomerular filtration rate/1.73 sq M pre dicted among non-blacks [Volume Rate/Area] in Serum or Plasma by Creatinine-based formula (MDRD) Laboratory test result [facility] ([facility] ID Date Data Source [id number] 02/26/2020 10:58:00 AM EST [facility] ([facility]) Name Value Range Interpretation Code Description Data Eloina rce(s) Supporting Document(s) Magnesium 2.0 mg/dL 1.8-2.4 [facility]) ID Date Data Source [id number] 02/26/2020 10:58:00 AM EST [facility] ([facility]) Name Value Range Interpretation Code Description Data Eloina rce(s) Supporting Document(s) Erythrocytes [#/volume] in Blood by Automated count 3.81 x10*6/UL 4.2 0-6.30 [facility] ([facility]) Leukocytes [#/volume] in Blood by Automated count 5.2 x10*3/UL 4.1-10 .9 [facility] ([facility]) Hemoglobin [Mass/volume] in Blood 12.4 g/dL 12.0-18.0 [facility] ([facility]) Hematocrit [Volume Fraction] of Blood by Automated count 35.5 % 3 7.0-51.0 [facility] ([facility]) MCV 93.3 fL 80.0-97.0 [facility] MCH 32.5 pg 26.0-32.0 [facility]) Erythrocyte distribution width [Ratio] by Automated count 13.7 % 11.6-13.7 [facility] ([facility]) Platelets [#/volume] in Blood by Automated count 264 x10*3/UL 140-440 [facility] ([facility]) MCHC 34.8 g/dL 31.0-38.0 [facility] Lymph % 27.5 % 10.0-58.5 [facility] MPV 9.4 FL 7.8-11.0 [facility] Neut % 65.5 % 37.0-92.0 [facility] Mid % 7.0 % 1.7-9.3 [facility] Lymph # 1.4 x10*3/UL 0.6-4.1 [facility] ([facility]) Neut # 3.4 x10*3/UL 2.0-7.8 [facility] ([facility]) Mid # 0.4 x10*3/UL 0.1-0.6 [facility] ([facility]) ID Date Data Source [id number] 02/24/2020 11:00:00 AM EST [facility] Name Value Range Interpretation Code Description Data Eloina rce(s) Supporting Document(s) SARS coronavirus 2 RNA [facility] This lab was ordered by [facility] and reported by [facility]. ID Date Data Source [id number] 02/06/2020 09:43:00 AM EST [facility] ([facility]) Name Value Range Interpretation Code Description Data Eloina rce(s) Supporting Document(s) C reactive protein [Mass/volume] in Serum or Plasma by High sensitivity method 1.09 mg/dL 0.00-0.30 [facility] ([facility] ) ID Date Data Source [id number] 02/06/2020 09:42:00 AM EST [facility] ([facility]) Name Value Range Interpretation Code Description Data Eloina rce(s) Supporting Document(s) Leukocytes [#/volume] in Blood by Automated count 6.2 x10*3/UL 4.1-10 .9 [facility] ([facility]) Erythrocytes [#/volume] in Blood by Automated count 3.73 x10*6/UL 4.2 0-6.30 [facility] ([facility]) Hematocrit [Volume Fraction] of Blood by Automated count 35.9 % 3 7.0-51.0 [facility] ([facility]) Hemoglobin [Mass/volume] in Blood 12.2 g/dL 12.0-18.0 [facility] ([facility]) MCV 96.1 fL 80.0-97.0 [facility] MCH 32.7 pg 26.0-32.0 [facility] MCHC 34.0 g/dL 31.0-38.0 [facility]) Erythrocyte distribution width [Ratio] by Automated count 13.9 % 11.6-13.7 [facility] ([facility]) Platelets [#/volume] in Blood by Automated count 256 x10*3/UL 140-440 [facility] ([facility]) MPV 9.7 FL 7.8-11.0 [facility] Mid % 6.6 % 1.7-9.3 [facility] Lymph % 24.3 % 10.0-58.5 [facility] Lymph # 1.5 x10*3/UL 0.6-4.1 [facility] ([facility]) Neut % 69.1 % 37.0-92.0 [facility]) Mid # 0.4 x10*3/UL 0.1-0.6 [facility] ([facility]) Neut # 4.3 x10*3/UL 2.0-7.8 [facility] ([facility]) ID Date Data Source [id number] 02/06/2020 09:42:00 AM EST [facility] ([facility]) Name Value Range Interpretation Code Description Data Eloina rce(s) Supporting Document(s) Erythrocyte sedimentation rate by Westergren method 42 mm/hr 0-15 [facility] ([facility]) ID Date Data Source [id number] 02/06/2020 09:42:00 AM EST [facility] ([facility]) Name Value Range Interpretation Code Description Data Eloina rce(s) Supporting Document(s) Urea nitrogen [Mass/volume] in Serum or Plasma 13 mg/dL 7-18 [facility] ([facility]) Glucose [Mass/volume] in Serum or Plasma 106 mg/dL 74-99 [facility] ([facility]) 100-125 mg/dL PRE-DIABETES/FASTING >126 mg/dL DIABETES/FASTING Potassium [Moles/volume] in Serum or Plasma 4.0 meq/L 3.5-5.1 [facility] ([facility]) Sodium [Moles/volume] in Serum or Plasma 143 meq/L 136-145 [facility] ([facility]) Creatinine 0.7 mg/dL 0.6-1.3 [facility] ([facility]) Carbon dioxide, total [Moles/volume] in Serum or Plasma 27 meq/L 21 -32 [facility] ([facility]) Chloride [Moles/volume] in Serum or Plasma 106 meq/L 98-107 [facility] ([facility]) Calcium [Mass/volume] in Serum or Plasma 9.8 mg/dL 8.5-10.1 [facility] ([facility]) Total Bilirubin 1.0 mg/dL 0.2-1.0 [facility] ([facility]) Alkaline phosphatase isoenzyme [Units/volume] in Serum or Pl asma 87 mg/dL 46-116 [facility] ([facility]) Alanine aminotransferase [Enzymatic activity/volume] in Seru m or Plasma 19 U/L 12-78 [facility] Albumin [Mass/volume] in Serum or Plasma 3.6 g/dL 3.4-5.0 [facility] ([facility]) Aspartate aminotransferase [Enzymatic activity/volume] in Serum or Plasma 21 U/L 15-37 [facility] Proteinase 3 Ab [Units/volume] in Serum 7.1 g/dL 6.4-8.2 [facility] ([facility]) A/G Ratio 1.03 CALC 1.00-1.90 [facility]) Glomerular filtration rate/1.73 sq M pre dicted among non-blacks [Volume Rate/Area] in Serum or Plasma by Creatinine-based formula (MDRD) Laboratory test result [facility] ([facility] Glomerular filtration rate/1.73 sq M pre dicted among blacks [Volume Rate/Area] in Serum or Plasma by Creatinine-based formula (MDRD) Laboratory test result [facility] ([facility]) <content>CHRONIC KIDNEY DISEASE STAGING PER NKF</content>
<content></content>
<content>STAGE I & II GFR >= 60 NORMAL TO MILDLY DECREASED</content>
<content>STAGE III GFR 30-59 MODERATELY DECREASED</content>
<content>STAGE IV GFR 15-29 SEVERELY DECREASED</content>
<content>STAGE V GFR <15 VERY LITTLE GFR LEFT</content>
<content>ESRD GFR <15 ON JUNIOR QA ANALYST</content>
<content></content> ID Date Data Source [id number] 01/08/2020 09:06:00 AM EDT [facility] ([facility]) Name Value Range Interpretation Code Description Data Eloina rce(s) Supporting Document(s) Appearance, Urine RFX Laboratory test result [facility] ([facility]) Color, Urine RFX Laboratory test result [facility] ([facility]) PH,Urine RFX 6.0 units 5.0-9.0 [facility] Protein, Urine Auto RFX Laboratory test result [facility] ([facility]) Specific [place] Ur Auto RFX 1.013 1.002-1.035 [facility] ([facility]) Ketone, Urine Auto RFX Laboratory test result [facility] ([facility]) Glucose, Urine (Ua) Auto RFX [facility] Bilirubin, Urine Auto RFX Laboratory test result [facility] ([facility]) Urobilinogen, Urine Auto RFX 0.2 mg/dL 0.0-2.0 [facility]) Nitrite, Urine Auto RFX Laboratory test result [facility] ([facility]) Leukocyte Esterase Ur Auto RFX Laboratory test result [facility] ([facility]) Blood, Urine Blood RFX Laboratory test result [facility] ([facility]) RBC, Urine Auto RFX 20 /HPF 0-3 [facility] WBC, Urine Auto RFX 16 /HPF 0-3 [facility]) Bacteria, Urine Auto RFX Laboratory test [facility]) Squam Epithelial Cell Ur Aurfx 0 /HPF 0-6 [facility] ([facility]) Hyaline Cast, Urine Auto RFX 3 /LPF 0-1 [facility] Mucus, Urine RFX Laboratory test [facility]) ID Date Data Source [id number] 01/08/2020 08:47:00 AM EDT [facility]) Name Value Range Interpretation Code Description Data Eloina rce(s) Supporting Document(s) Platelets [#/volume] in Blood by Estimate Laboratory test result [facility] ([facility]) Natriuretic peptide.B prohormone N-Terminal [Mass/volu me] in Serum or Plasma 74467 pg/mL [facility] ([facility] ) ID Date Data Source [id number] 01/08/2020 08:47:00 AM EDT [facility]) Name Value Range Interpretation Code Description Data Eloina rce(s) Supporting Document(s) Bands 12 % [facility] Neutrophils 80 % 28-66 [facility] ([facility]) Lymphocytes 5 % 16-44 [facility] ([facility]) Monocytes 2 % 0-5 [facility]) Metamyelocytes 1 % 0-0 [facility] ([facility]) Laboratory test finding (navigational concept) Laboratory test result [facility] ([facility]) Macrocytosis Laboratory test result [facility] ([facility]) ID Date Data Source [id number] 01/08/2020 08:47:00 AM EDT [facility] ([facility]) Name Value Range Interpretation Code Description Data Eloina rce(s) Supporting Document(s) White Blood Count 16.1 10 4.0-10.0 [facility] ([facility]) Red Blood Count 3.91 10 4.00-5.40 [facility] ([facility]) Hematocrit 39.4 % 36.0-47.0 [facility] ([facility]) Hemoglobin 12.8 g/dL 12.0-15.5 [facility] ([facility]) Mean Corpuscular Volume 100.8 fl 80.0-96.0 [facility] ([facility]) Mean Corpuscular Hemoglobin 32.7 pg 27.0-33.0 [facility] ([facility]) Red Cell Distribution Width 13.6 % 11.5-14.5 [facility] ([facility]) Mean Corpuscular HGB Conc 32.5 g/dL 32.0-36.5 [facility] ([facility]) Platelet Count, Automated 100 10 150-450 [facility] ([facility]) Nucleated Red Blood Cell % 0.1 % 0-0 [facility] ([facility]) ID Date Data Source [id number] 01/08/2020 08:47:00 AM EDT [facility] ([facility]) Name Value Range Interpretation Code Description Data Eloina rce(s) Supporting Document(s) Blood Urea Nitrogen 22 mg/dL 7-18 [facility] ([facility]) Glucose, Fasting 167 mg/dL 70-100 [facility] ([facility]) Glomerular Filtration Rate 45.1 [facility] ([facility]) <content>Units are mL/min/1.73 m2</content>
<content></content>
<content>Chronic Kidney Disease Staging per NKF:</content>
<content></content>
<content>Stage I & II GFR >=60 Normal to Mildly Decreased</content>
<content>Stage III GFR 30- 59 Moderately Decreased</content>
<content>Stage IV GFR 15-29 Severely Decreased</content>
<content>Stage V GFR <15 Very Little GFR Left</content>
<content>ESRD GFR <15 on JUNIOR QA ANALYST</content>
<content></content> Sodium Level 142 meq/L 136-145 [facility] ([facility]) Creatinine For GFR 1.21 mg/dL 0.55-1.30 [facility] ([facility]) Chloride Level 109 meq/L 98-107 [facility] ([facility]) Potassium Serum 3.7 meq/L 3.5-5.1 [facility] ([facility]) Calcium Level 9.9 mg/dL 8.8-10.2 [facility] ([facility]) Carbon Dioxide Level 23 meq/L 21-32 [facility] ([facility]) Anion Gap 10 meq/L 8-16 [facility] ([facility]) ID Date Data Source [id number] 01/08/2020 08:47:00 AM EDT [facility] ([facility]) Name Value Range Interpretation Code Description Data Eloina rce(s) Supporting Document(s) Ast/Sgot 66 U/L 7-37 [facility] ([facility]) Alt/SGPT 35 U/L 12-78 [facility] ([facility]) Bilirubin,Total 2.9 mg/dL 0.2-1.0 [facility] ([facility]) Alkaline Phosphatase 82 U/L 45-117 [facility] ([facility]) Albumin 3.3 GM/DL 3.2-5.2 [facility]) Bilirubin,Direct 0.6 mg/dL 0.0-0.2 [facility] ([facility]) Total Protein 7.2 GM[facility]DL 6.4-8.2 [facility] Albumin/Globulin Ratio 0.8 1.2-2.2 [facility]) ID Date Data Source [id number] 01/08/2020 08:47:00 AM EDT [facility] ([facility]) Name Value Range Interpretation Code Description Data Eloina rce(s) Supporting Document(s) CPK Creatine Phosphokinase 813 U/L 26-192 [facility] ([facility]) CK-MB Value Mass 5.8 ng/mL [facility] Troponin I 0.25 ng/mL [facility] ([facility]) <content>Troponin I Reference Interval f or [employer] [place] LOCI:</content>
<content></content>
<content>99th Percentile= 0.00-0.045 ng/ml</content>
<content></content>
<content>Risk Stratification:</content>
<content><= 0.10 ng/ml Decreased Risk for Adverse Clinical</content>
<content>Events.</content>
<content>0.10-1.50 ng/ml Increased Risk for Adverse Clinical</content>
<content>Events. Evaluation of additional</content>
<content>criterion and/or repeat testing in 2-6</content>
<content>hours is suggested to rule out myocardial</content>
<content>damage.</content>
<content>>= 1.50 ng/ml Indicative of Myocardial Injury.</content>
<content></content> MB/CK Relative Index 0.71 [facility] <content>DIAGNOSIS CRITERIA</content>
<content>MMB ng/ml Relative Index (RI)</content>
<content>NON-AMI < or = 5 N/A</content>
<content>RIOS ZONE > 5 < or = 4</content>
<content>AMI > 5 > 4</content>
<content></content> ID Date Data Source [id number] 01/08/2020 08:28:00 AM EDT [facility] ([facility]) Name Value Range Interpretation Code Description Data Eloina rce(s) Supporting Document(s) Lactate [Mass/volume] in Serum or Plasma 4.9 mmol/L 0.4-2.0 Above upper panic limits [facility] ([facility]) Y/N query for Sepsis Lactate Rule: Y ID Date Data Source [id number] 12/11/2019 09:54:00 AM EDT [facility] ([facility]) Name Value Range Interpretation Code Description Data Eloina rce(s) Supporting Document(s) Glucose [Mass/volume] in Serum or Plasma 108 mg/dL 74-99 [facility] ([facility]) 100-125 mg/dL PRE-DIABETES/FASTING >126 mg/dL DIABETES/FASTING Creatinine 0.7 mg/dL 0.6-1.3 [facility] Urea nitrogen [Mass/volume] in Serum or Plasma 15 mg/dL 7-18 [facility] ([facility]) Sodium [Moles/volume] in Serum or Plasma 141 meq/L 136-145 [facility] ([facility]) Carbon dioxide, total [Moles/volume] in Serum or Plasma 23 meq/L 21 -32 [facility] ([facility]) Calcium [Mass/volume] in Serum or Plasma 9.5 mg/dL 8.5-10.1 [facility] ([facility]) Potassium [Moles/volume] in Serum or Plasma 4.4 meq/L 3.5-5.1 [facility] ([facility]) Chloride [Moles/volume] in Serum or Plasma 105 meq/L 98-107 [facility] ([facility]) Glomerular filtration rate/1.73 sq M pre dicted among non-blacks [Volume Rate/Area] in Serum or Plasma by Creatinine-based formula (MDRD) Laboratory test result [facility] ([facility] ) Glomerular filtration rate/1.73 sq M pre dicted among blacks [Volume Rate/Area] in Serum or Plasma by Creatinine-based formula (MDRD) Laboratory test result [facility] ([facility]) <content>CHRONIC KIDNEY DISEASE STAGING PER NKF</content>
<content></content>
<content>STAGE I & II GFR >= 60 NORMAL TO MILDLY DECREASED</content>
<content>STAGE III GFR 30-59 MODERATELY DECREASED</content>
<content>STAGE IV GFR 15-29 SEVERELY DECREASED</content>
<content>STAGE V GFR <15 VERY LITTLE GFR LEFT</content>
<content>ESRD GFR <15 ON JUNIOR QA ANALYST</content>
<content></content> ID Date Data Source [id number] 12/11/2019 09:54:00 AM EDT [facility]) Name Value Range Interpretation Code Description Data Eloina rce(s) Supporting Document(s) Hemoglobin [Mass/volume] in Blood 14.4 g/dL 12.0-18.0 [facility] ([facility]) Erythrocytes [#/volume] in Blood by Automated count 4.43 x10*6/UL 4.2 0-6.30 [facility] ([facility]) Leukocytes [#/volume] in Blood by Automated count 5.5 x10*3/UL 4.1-10 .9 [facility]) NOTE: RESULT VERIFIED. Hematocrit [Volume Fraction] of Blood by Automated count 42.6 % 3 7.0-51.0 [facility] ([facility]) MCH 32.6 pg 26.0-32.0 [facility] MCV 96.1 fL 80.0-97.0 [facility] ([facility]) Platelets [#/volume] in Blood by Automated count 119 x10*3/UL 140-440 [facility] Erythrocyte distribution width [Ratio] by Automated count 13.4 % 11.6-13.7 [facility] ([facility]) MCHC 33.9 g/dL 31.0-38.0 [facility] ([facility]) Lymph % 51.8 % 10.0-58.5 [facility] Mid % 7.9 % 1.7-9.3 [facility] MPV 9.7 FL 7.8-11.0 [facility] ([facility]) Neut % 40.3 % 37.0-92.0 [facility] ([facility]) Mid # 0.5 x10*3/UL 0.1-0.6 [facility] ([facility]) Lymph # 2.8 x10*3/UL 0.6-4.1 [facility] ([facility]) Neut # 2.2 x10*3/UL 2.0-7.8 [facility] ([facility]) ID Date Data Source [id number] 12/11/2019 09:00:00 AM [facility] Name Value Range Interpretation Code Description Data Eloina rce(s) Supporting Document(s) Urine Creatinine 48.9 mg/dL 30.0-125.0 [facility] ([facility]) Microalbumin Urine 18.6 mg/L 1.3-20.0 [facility] ([facility]) Microalb/Creat Ratio 38.0 ug/mg 0.0-30.0 [facility] ( [facility]) ID Date Data Source [id number] 12/11/2019 09:00:00 AM EDT [facility] ([facility]) Name Value Range Interpretation Code Description Data Eloina rce(s) Supporting Document(s) Urine PH 8.0 units 5.0-9.0 [facility] ([facility]) Urine Appearance Laboratory test result Abnormal (applies to non-numeric results) [facility] ([facility]) Urine Color Laboratory test result [facility] T ([facility]) Urine [facility]ukocytes [facility] Specific gravity of Urine 1.010 1.005-1.030 [place] [facility] ([facility]) Urine Blood Laboratory test result [facility] T ([facility]) Urine Protein Laboratory test result 0-0 [facility] ([facility]) Urine Nitrite Laboratory test result Abnormal (applies to non-numeric results) [facility] ([facility]) Glucose [Presence] in Urine Laboratory test result [facility] ([facility]) Urine Urobilinogen 0.2 mg/dL 0.2-1.0 [facility] ([facility]) Urine Ketone Laboratory test result [facility] Bilirubin.total [Mass/volume] in Serum or Plasma Laboratory test resu lt [facility] ([facility] ID Date Data Source [id number] 08/28/2019 08:13:00 AM EDT [facility] Name Value Range Interpretation Code Description Data Eloina rce(s) Supporting Document(s) Urine Color Laboratory test result [facility] Urine PH 6.0 units 5.0-9.0 [facility] Urine Appearance Laboratory test result Abnormal (applies to non-numeric results) [facility] ([facility]) Urine Blood Laboratory test result Abnormal (applies to non-numeric results) [facility] Specific gravity of Urine 1.020 1.005-1.030 [place] [facility] ([facility]) Urine Leukocytes Laboratory test result Abnormal (applies to non-numeric results) [facility] Glucose [Presence] in Urine Laboratory test result [facility] Urine Protein Laboratory test result 0-0 Abnormal (applies to non-numeric results) [facility]) Urine Nitrite Laboratory test result Abnormal (applies to non-numeric results) [facility] ([facility]) Urine Ketone Laboratory test result [facility] Urine Urobilinogen 0.2 mg/dL 0.2-1.0 [facility]) Bilirubin.total [Mass/volume] in Serum or Plasma Laboratory test resu lt [facility] ID Date Data Source [id number] 08/28/2019 08:13:00 AM EDT [facility] Name Value Range Interpretation Code Description Data Eloina rce(s) Supporting Document(s) Thyrotropin [Units/volume] in Serum or Plasma by Detec tion limit <= 0.05 mIU/L 1.29 uIU/mL 0.36-3.74 [facility] ([facility] ) ID Date Data Source [id number] 08/28/2019 08:13:00 AM EDT [facility]) Name Value Range Interpretation Code Description Data Eloina rce(s) Supporting Document(s) Triglyceride [Mass/volume] in Serum or Plasma 146 mg/dL 30-150 [facility] ([facility]) Cholesterol [Mass/volume] in Serum or Plasma 169 mg/dL 131-200 [facility] ([facility]) Cholesterol in HDL [Mass/volume] in Serum or Plasma 61 mg/dL 35-60 [facility] ([facility]) Cholesterol in LDL [Mass/volume] in Serum or Plasma by calcu lation 79 CALC 50-159 [facility] ([facility]) ID Date Data Source [id number] 08/28/2019 08:13:00 AM EDT [facility]) Name Value Range Interpretation Code Description Data Eloina rce(s) Supporting Document(s) Glucose [Mass/volume] in Serum or Plasma 94 mg/dL 74-99 [facility] ([facility]) 100-125 mg/dL PRE-DIABETES/FASTING >126 mg/dL DIABETES/FASTING Urea nitrogen [Mass/volume] in Serum or Plasma 13 mg/dL 7-18 [facility] ([facility]) Creatinine 0.7 mg/dL 0.6-1.3 [facility] Sodium [Moles/volume] in Serum or Plasma 142 meq/L 136-145 [facility] ([facility]) Potassium [Moles/volume] in Serum or Plasma 4.5 meq/L 3.5-5.1 [facility] ([facility]) Carbon dioxide, total [Moles/volume] in Serum or Plasma 25 meq/L 21 -32 [facility] ([facility]) Chloride [Moles/volume] in Serum or Plasma 106 meq/L 98-107 [facility] ([facility]) Calcium [Mass/volume] in Serum or Plasma 9.7 mg/dL 8.5-10.1 [facility] ([facility]) Alkaline phosphatase isoenzyme [Units/volume] in Serum or Pl asma 63 mg/dL 46-116 [facility] ([facility]) Total Bilirubin 1.9 mg/dL 0.2-1.0 [facility] ([facility]) Aspartate aminotransferase [Enzymatic activity/volume] in Serum or Plasma 22 U/L 15-37 [facility] ([facility] ) Alanine aminotransferase [Enzymatic activity/volume] in Seru m or Plasma 21 U/L 12-78 [facility] ([facility]) Albumin [Mass/volume] in Serum or Plasma 4.0 g/dL 3.4-5.0 [facility] ([facility]) A/G Ratio 1.25 CALC 1.00-1.90 [facility]) Proteinase 3 Ab [Units/volume] in Serum 7.2 g/dL 6.4-8.2 [facility] ([facility]) Glomerular filtration rate/1.73 sq M pre dicted among non-blacks [Volume Rate/Area] in Serum or Plasma by Creatinine-based formula (MDRD) Laboratory test result [facility] ([facility] ) Glomerular filtration rate/1.73 sq M pre dicted among blacks [Volume Rate/Area] in Serum or Plasma by Creatinine-based formula (MDRD) Laboratory test [facility] <content>CHRONIC KIDNEY DISEASE STAGING PER NKF</content>
<content></content>
<content>STAGE I & II GFR >= 60 NORMAL TO MILDLY DECREASED</content>
<content>STAGE III GFR 30-59 MODERATELY DECREASED</content>
<content>STAGE IV GFR 15-29 SEVERELY DECREASED</content>
<content>STAGE V GFR <15 VERY LITTLE GFR LEFT</content>
<content>ESRD GFR <15 ON JUNIOR QA ANALYST</content>
<content></content> ID Date Data Source [id number] 08/28/2019 08:13:00 AM EDT [facility] ([facility]) Name Value Range Interpretation Code Description Data Eloina rce(s) Supporting Document(s) Magnesium 2.1 mg/dL 1.8-2.4 [facility] ([facility]) ID Date Data Source [id number] 08/28/2019 08:13:00 AM EDT [facility] ([facility]) Name Value Range Interpretation Code Description Data Eloina rce(s) Supporting Document(s) Leukocytes [#/volume] in Blood by Automated count 4.0 x10*3/UL 4.1-10 .9 [facility] ([facility]) Hemoglobin [Mass/volume] in Blood 14.3 g/dL 12.0-18.0 [facility] ([facility]) Erythrocytes [#/volume] in Blood by Automated count 4.31 x10*6/UL 4.2 0-6.30 [facility] ([facility]) Hematocrit [Volume Fraction] of Blood by Automated count 42.0 % 3 7.0-51.0 [facility] ([facility]) MCV 97.3 fL 80.0-97.0 [facility] MCH 33.1 pg 26.0-32.0 [facility] MCHC 34.0 g/dL 31.0-38.0 [facility] Platelets [#/volume] in Blood by Automated count 193 x10*3/UL 140-440 [facility] ([facility]) Erythrocyte distribution width [Ratio] by Automated count 13.5 % 11.6-13.7 [facility] ([facility]) MPV 9.5 FL 7.8-11.0 [facility] Lymph % 37.8 % 10.0-58.5 [facility] Mid % 7.9 % 1.7-9.3 [facility] Neut % 54.3 % 37.0-92.0 [facility] Lymph # 1.5 x10*3/UL 0.6-4.1 [facility] ([facility]) Mid # 0.4 x10*3/UL 0.1-0.6 [facility] ([facility]) Neut # 2.1 x10*3/UL 2.0-7.8 [facility] ([facility]) Procedure Social History Code Duration Value Status Description Data Source(s ) Smoking 03/13/2020 12:00:00 AM EST Never Smoker completed Never S moker eCW1 ([facility]) Smoking 03/13/2020 12:00:00 AM EST Never Smoker completed Never S moker eCW1 ([facility]) Smoking 03/13/2020 12:00:00 AM EST Never Smoker completed Never S moker eCW1 ([facility]) Smoking 02/06/2020 12:00:00 AM EST Never Smoker completed Never S moker eCW1 ([facility]) Smoking 02/06/2020 12:00:00 AM EST Never Smoker completed Never S moker eCW1 ([facility]) Smoking 02/06/2020 12:00:00 AM EST Never Smoker completed Never S moker eCW1 ([facility]) Smoking 02/06/2020 12:00:00 AM EST Never Smoker completed Never S moker eCW1 ([facility]) Vital Signs ID Date Data Source UNK Name Value Range Interpretation Code Description Data Source(s) Diastolic blood pressure 64 mm[Hg] 64 mm[Hg] eCW1 ([facility]) Systolic blood pressure 122 mm[Hg] 122 mm[Hg] e CW1 ([facility]) Body temperature 98.0 [degF] 98.0 [degF] eCW1 ( [facility]) Respiratory rate 18 /min 18 /min eCW1 ([facility]) Heart rate 101 /min 101 /min eCW1 ([facility]) Body mass index (BMI) [Ratio] 33.85 kg/m2 33.85 kg/m2 W1 ([facility]) Body height 58 [in_i] 58 [in_i] eCW1 ([facility]) Body weight 162 [lb_av] 162 [lb_av] eCW1 [facility] Body mass index (BMI) [Ratio] 26.1 kg/m2 26.1 k g/m2 [facility] ([facility]) Oxygen saturation in Arterial blood by Pulse oximetry 94 % 94 % [facility] ([facility]) Body weight 159.00 [lb_av] 159.00 [lb_av] [facility] T ([facility]) Body height 65.5 [in_i] 65.5 [in_i] [facility] ([facility]) 5'5.50" Heart rate 106 /min 106 /min [facility] ([facility]) Diastolic blood pressure 76 mm[Hg] 76 mm[Hg] [facility] ([facility]) Systolic blood pressure 124 mm[Hg] 124 mm[Hg] M EDENT ([facility]) Body weight 70.308 kg 70.308 kg [facility] ([facility]) Van body weight 100 [lb_av] 100 [lb_av] MEDEN T ([facility]) Body mass index (BMI) [Ratio] 33.5 kg/m2 33.5 k g/m2 [facility] ([facility]) Body weight 155.00 [lb_av] 155.00 [lb_av] [facility] T ([facility]) Body height 57 [in_i] 57 [in_i] [facility] ([facility]) 4'9" Heart rate 101 /min 101 /min [facility] ([facility]) Diastolic blood pressure 78 mm[Hg] 78 mm[Hg] [facility] ([facility]) Systolic blood pressure 113 mm[Hg] 113 [facility]Hg] [facility] Diastolic blood pressure mm[Hg] eCW1 ([facility]) Systolic blood pressure 118 mm[Hg] 118 mm[Hg] e CW1 ([facility]) Body temperature 96.8 [degF] 96.8 [degF] eCW1 ( [facility]) Respiratory rate 17 /min 17 /min eCW1 ([facility]) Heart rate 97 /min 97 /min eCW1 ([facility]) Body mass index (BMI) [Ratio] 33.85 kg/m2 33.85 kg/m2 eCW1 ([facility]) Body height 58 [in_i] 58 [in_i] eCW1 ([facility]) Body weight 162 [lb_av] 162 [lb_av] eCW1 ([facility] Body mass index (BMI) [Ratio] 35.7 kg/m2 35.7 k g/m2 [facility] ([facility]) Oxygen saturation in Arterial blood by Pulse oximetry 96 % 96 % [facility] ([facility]) RM Air Body weight 162.00 [lb_av] 162.00 [lb_av] [facility] T ([facility]) Body height 56.50 [in_i] 56.50 [in_i] [facility] ([facility]) 4'8.50" Heart rate 97 /min 97 /min [facility] ([facility]) Diastolic blood pressure 78 mm[Hg] 78 mm[Hg] [facility] ([facility]) LT Arm Systolic blood pressure 124 mm[Hg] 124 mm[Hg] M EDENT ([facility]) LT Arm Body mass index (BMI) [Ratio] 35.0 kg/m2 35.0 k g/m2 [facility] ([facility]) Oxygen saturation in Arterial blood by Pulse oximetry --post exerci se 94 % 94 % [facility] ([facility]) RM Air Body weight 159.00 [lb_av] 159.00 [lb_av] [facility] T ([facility]) Body height 56.50 [in_i] 56.50 [in_i] [facility] ([facility]) 4'8.50" Heart rate 105 /min 105 /min [facility] ([facility]) Diastolic blood pressure 58 mm[Hg] 58 mm[Hg] [facility] ([facility]) Systolic blood pressure 108 mm[Hg] 108 [facility] Body mass index (BMI) [Ratio] 34.2 kg/m2 34.2 k g/m2 [facility] ([facility]) Body weight 155.38 [lb_av] 155.38 [lb_av] [facility] T ([facility]) Body height 56.50 [in_i] 56.50 [in_i] FLORESITA ([facility]) 4'8.50" Diastolic blood pressure 66 mm[Hg] 66 mm[Hg] FLORESITA ([facility]) Systolic blood pressure 132 mm[Hg] 132 mm[Hg] M BRIAN ([facility]) Patient Treatment Plan of Care Planned Activity Planned Date Details Description Data Source (s) Fluconazole 150 MG Oral Tablet [Diflucan] 02/26/2020 12:00:00 AM RUPALI MichaelW1 ([facility]) Fluconazole 150 MG Oral Tablet [Diflucan] 02/26/2020 12:00:00 AM RUPALI Barahona eCW1 ([facility])
--- NOTE | 2020-04-29 15:14 | REP ---
INDICATION: trauma; fall. COMPARISON: March 01, 2020.. TECHNIQUE: Helical scanning is acquired. 5 mm axial images were reformatted. Coronal MPR images were generated. FINDINGS: Bone window settings demonstrate an intact bony calvarium. There is no evidence of skull fracture or incidental bony calvarial lesion. The visualized paranasal sinuses appear clear. No intraorbital abnormality is seen. On soft tissue window setting images; the lateral, third, and fourth ventricles are normal in size and position. Mchugh-white differentiation pattern is normal above and below the tentorium. There are is no evidence of intracranial hemorrhage. No mass, edema, infarction, or midline shift is seen. No extra-axial fluid collection is appreciated. There are extensive small-vessel atherosclerotic changes again noted along with generalized volume loss. These findings are unchanged from the March 01, 2020 exam. Spur vascular calcifications again seen. IMPRESSION: No acute intracranial abnormality. Generalized volume loss, vascular calcification, and small vessel changes.. <Electronically signed by Russel Das > 04/29/20 [id number]
--- NOTE | 2020-04-29 15:16 | REP ---
INDICATION: trauma; fall. COMPARISON: None. TECHNIQUE: Helical scanning is acquired and overlapping 2 mm high resolution axial images were generated and reviewed at bone and soft tissue window settings. Coronal and sagittal multiplanar re-formations images are generated. FINDINGS: There is no evidence of cervical spine element fracture. No skull base fracture is seen. Cervical vertebral body heights are preserved. Alignment is normal. Facet joints are normally aligned bilaterally at each cervical level on multiplanar re-formations images. There is no evidence of intraspinal or paraspinal hematoma. No extra vertebral abnormality is seen. There are degenerative spondylosis changes at C6-7 and to a lesser extent C5-6. Osteoarthritic facet hypertrophy is noted at multiple cervical levels bilaterally. There are extensive infiltrates in the upper lobes of the lungs noted incidentally. IMPRESSION: Degenerative spondylosis changes. Bilateral upper lobe pulmonary parenchymal disease. No fracture or subluxation seen.. <Electronically signed by Russel Das > 04/29/20 [id number]
--- NOTE | 2020-04-29 15:17 | REP ---
INDICATION: trauma; fall COMPARISON: None TECHNIQUE: Axial noncontrast images from the thoracic inlet to the upper abdomen with coronal and sagittal reformations. This CT examination was performed using the following dose reduction techniques: Automated exposure control, adjustment of mA and/or kv according to the patient's size, and use of iterative reconstruction technique. FINDINGS: It is the lung ballard demonstrate patchy ill-defined moderate areas of airspace disease along with early consolidations and scattered ill-defined atelectasis consistent with COVID-19 pulmonary disease as per history. No effusion. No pneumothorax. Reactive mediastinal adenopathy cannot be excluded. Tracheobronchial tree is patent. Atherosclerotic changes to the thoracic aorta and coronary arteries noted along with mild cardiomegaly. No pericardial effusion. The osseous structures demonstrate osteopenia and degenerative changes without obvious acute fracture/injury. IMPRESSION: Bilateral areas of airspace disease and ill-defined atelectasis consistent with COVID-19 pulmonary disease/viral pneumonia. No evidence for acute thoracic trauma/injury. <Electronically signed by Jose Randolph > 04/29/20 [id number]
--- NOTE | 2020-04-29 15:20 | REP ---
INDICATION: trauma; fall. COMPARISON: Comparison is made with imaging from CT study of the abdomen and pelvis dated March 01, 2020.. TECHNIQUE: Helical scanning is acquired. 4 mm axial images are generated. Coronal and sagittal MPR images are provided. FINDINGS: There is wedge compression deformity at L1 with approximately 40% loss of anterior vertebral body height. There is some retropulsion of the posterior cortex of the superior aspect of L1, 4 mm. These findings at L1 and T12-L1 are unchanged from the comparison CT study March 01, 2020. No new fracture or collapse is seen. There is a degenerative grade 1, 6 mm, L4-5 spondylolisthesis which is also unchanged. There is degenerative disc disease with vacuum phenomena at L3-4 L4-5 and L5-S1 as well as at L1-L2. Osteoarthritic facet hypertrophy is noted bilaterally. No paravertebral edema or mass is seen. A mild levoconvex curve is noted unchanged. IMPRESSION: Degenerative spondylosis changes. Partial wedge compression deformity at L1 unchanged from March 01, 2020 CT scan images. No acute traumatic abnormality. <Electronically signed by Russel Das > 04/29/20 [id number]
--- NOTE | 2020-04-29 15:26 | REP ---
INDICATION: trauma; fall. COMPARISON: Comparison is made with imaging from chest CT study January 08, 2020.. TECHNIQUE: Helical scanning is acquired and 4 mm axial images are generated. Coronal and sagittal MPR images are generated and reviewed. FINDINGS: There is an exaggerated thoracic kyphosis. There is approximately 50% loss of anterior vertebral body height at the T3 vertebral body level. This was not present on the January 08, 2020 study. There are however evidence changes consistent with reactive sclerosis suggesting a subacute injury. There is mild 2-3 mm retropulsion of the posterior cortex of the lower margin of T3 which impinges on the spinal canal slightly. No subluxation is seen. No other fracture or collapse is seen. Posterior elements of T3 appear intact as do the posterior elements of the other thoracic levels. No other wedge compression deformity is seen. There is equivocal paravertebral soft tissue edema at the teeth 3 4 level. Degenerative disc changes are seen at T3-4 and to a lesser extent at the other thoracic levels. Lung disease is noted as described in the chest CT report. IMPRESSION: Interval partial wedge compression fracture deformity at the T3 vertebral body new when compared with January 08, 2020 CT study. Healing sclerotic changes suggest a subacute wedge compression deformity. There is slight retropulsion. Exaggerated thoracic kyphosis. Diffuse degenerative disc disease. <Electronically signed by Russel Das > 04/29/20 [id number]
--- NOTE | 2020-04-29 16:31 | ECGEPIP ---
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
[2020-04-29] MEDS ORDERED: POTA10TA14 PO (16:44)
[2020-04-29] MEDS ORDERED: NITR100C2 PO (16:44)
[2020-04-29] MEDS ORDERED: TRAV04OPD OU (16:44)
[2020-04-29] MEDS ORDERED: ELIQ5TAB PO (16:44)
[2020-04-29] MEDS ORDERED: AMLO2.5T3 PO (16:44)
[2020-04-29] MEDS ORDERED: OXYB5TAB10 PO (16:44)
[2020-04-29] MEDS ORDERED: PRAV20TA2 PO (16:44)
[2020-04-29] MEDS ORDERED: HYDR-3490 PO (16:44)
[2020-04-29] MEDS ORDERED: D31000TA2 PO (16:44)
[2020-04-29] MEDS ORDERED: COSO1SOL2 OU (16:44)
[2020-04-29] MEDS ORDERED: LOSA100T50 PO (16:44)
[2020-04-29] MEDS ORDERED: BACITAB PO (16:44)
[2020-04-29] MEDS ORDERED: ALBUTEROL 90 MCG/ACT 8GM HFA INHALER INH PRN (16:45)
[2020-04-29] MEDS ORDERED: PATIENT COMMENT (16:46)
--- OUTSIDE RECORDS SUMMARY | 2020-04-29 16:54 | CCD ---
Author Author [facility] Organization [facility] Address Unknown Phone Unavailable Care Team Providers Care Lab Engineer Name Role Phone Doug Akbar MD Unavailable [...] MD Unavailable Unavailable RaffyDoug MD Unavailable Unavailable ArffyDoug del rosario MD Unavailable Unavailable RaffyDoug leon [...] Doug Akbar MD Unavailable Unavailable Matt, Barb ABSEILING INSTRUCTOR Unavailable Unavailable Matt, Barb ABSEILING INSTRUCTOR Unavailable Unavailable Matt, Barb ABSEILING INSTRUCTOR Unavailable Unavailable Matt, Barb ABSEILING INSTRUCTOR Unavailable Unavailable Matt, Barb ABSEILING INSTRUCTOR Unavailable Unavailable Matt, Barb ABSEILING INSTRUCTOR Unavailable Unavailable Matt, Barb ABSEILING INSTRUCTOR Unavailable Unavailable Matt, Barb ABSEILING INSTRUCTOR Unavailable Unavailable Matt, Barb ABSEILING INSTRUCTOR Unavailable Unavailable Matt, Barb ABSEILING INSTRUCTOR Unavailable Unavailable Matt, Barb ABSEILING INSTRUCTOR Unavailable Unavailable Matt, Barb ABSEILING INSTRUCTOR Unavailable Unavailable Matt, Barb ABSEILING INSTRUCTOR Unavailable Unavailable Matt, Barb ABSEILING INSTRUCTOR Unavailable Unavailable Matt, Barb ABSEILING INSTRUCTOR Unavailable Unavailable Matt, Barb ABSEILING INSTRUCTOR Unavailable Unavailable Matt, Barb ABSEILING INSTRUCTOR Unavailable Unavailable Matt, Barb ABSEILING INSTRUCTOR Unavailable Unavailable Matt, Barb ABSEILING INSTRUCTOR Unavailable Unavailable Matt, Barb ABSEILING INSTRUCTOR Unavailable Unavailable Matt, Barb ABSEILING INSTRUCTOR Unavailable Unavailable Matt, Barb ABSEILING INSTRUCTOR Unavailable Unavailable Matt, Barb ABSEILING INSTRUCTOR Unavailable Unavailable Matt, Barb ABSEILING INSTRUCTOR Unavailable Unavailable Matt, Barb ABSEILING INSTRUCTOR Unavailable Unavailable Amtt, Barb ABSEILING INSTRUCTOR Unavailable Unavailable Matt, Barb ABSEILING INSTRUCTOR Unavailable Unavailable Re-disclosure Warning The records that [...] is protected by Article 27-F of the [facility] Public Health law. If you continue you may have access to information: Regarding HIV / AIDS; Provided by facilities licensed or operated by the [facility] Office of Mental Health; or Provided by the [facility] Office for People With Developmental Disabilities. If such information is present, then the following [facility] mandated warning applies: This information has [...] law may result in a fine or mcc sentence or both. A general authorization for the release of medical or other information is NOT sufficient authorization for further disc losure. Family History Family Member Name Family Member Gender Family Member Status Date o f Status Description Data Source(s) Unknown Male Problem [facility] ([facility]) Unknown Male Problem [facility] ([facility]) Encounters Encounter Providers Location Date Indications Data Source(s ) TeleMedicine Phone E/M by Miguel Angel 5-10 Min [address] [place] [address] 04/16/2020 12:00:00 AM EST eCW1 ([facility]) Unknown [address] [facility] [address] 04/14/2020 12:00:00 AM EST eCW1 ([facility]) Outpatient Attender: Barb Palencia 12:00:00 PM EST [facility] ([facility] ) (Cysto1) Urology [address] [place] [address] 03/13/2020 12:00:00 AM EST eCW1 ([facility]) Unknown [address] [facility] [address] 03/10/2020 12:00:00 AM EST eCW1 ([facility]) Outpatient Attender: Sherri Palencia 09:00:00 AM EST MED[facility] ([facility] ) Unknown [address] [facility] [address] 02/26/2020 12:00:00 AM EST eCW1 ([facility]) Unknown [address] [facility] [address] 02/25/2020 12:00:00 AM EST eCW1 ([facility]) Outpatient Attender: Sherri Palencia 08:00:00 AM EST MED[facility] ([facility] ) Outpatient [address] [facility] [address] 02/06/2020 12:00:00 AM EST eCW1 ([facility]) Outpatient Attender: Sherri Palencia 10:45:00 AM EDT MED[facility] ([facility] ) Outpatient Attender: Sherri Palencia 11:00:00 AM EDT [facility] ([facility] ) Immunizations Vaccine Date Status Description Data Source(s) Influenza, injectable, MDCK, preservative free, marisela valent 12/12/2019 10:50:00 AM EDT completed [facility] Medications Medication Brand Name Start Date Product Form Dose Route Admi nistrative Instructions Pharmacy Instructions Status Indications Reaction Description Data Source(s) Fluconazole 150 MG Oral Tablet [Diflucan] Diflucan 150 MG Di flucan 150 MG 02/26/2020 12:00:00 AM EST 1.0 {tablet} active Diflucan 150 MG eCW1 ([facility]) Fluconazole 150 MG Oral Tablet [Diflucan] Diflucan 150 MG Di flucan 150 MG 02/26/2020 12:00:00 AM EST 1.0 {tablet} active Diflucan 150 MG eCW1 ([facility]) Oxybutynin chloride 5 MG Oral Tablet Oxybutynin Chloride 03/2019 12:00:00 AM EST ORAL active [facility] ([facility]) Fluconazole 150 MG Oral Tablet [Diflucan] Diflucan 150 MG Di flucan 150 MG 02/26/2020 12:00:00 AM EST 1.0 {tablet} active Diflucan 150 MG eCW1 ([facility]) Fluconazole 150 MG Oral Tablet [Diflucan] Diflucan 150 MG Di flucan 150 MG 02/26/2020 12:00:00 AM EST 1.0 {tablet} active Diflucan 150 MG eCW1 ([facility]) Potassium Chloride 10 MEQ Extended Release Oral Tablet [Klor -Con] Klor-Con 10 02/26/2020 12:00:00 AM EST ORAL active [facility] ([facility]) Fluconazole 150 MG Oral Tablet [Diflucan] Diflucan 150 MG Di flucan 150 MG 02/26/2020 12:00:00 AM EST 1.0 {tablet} active Diflucan 150 MG eCW1 ([facility]) apixaban 5 MG Oral Tablet [Eliquis] Eliquis 02/26/2020 12:00:[address] ORAL active [facility] ([facility]) NITROFURANTOIN, MACROCRYSTALS 50 MG Oral Capsule Nitrofurantoin Macrocrystal 50 MG Nitrofurantoin Macrocrystal 50 MG 01/29/2020 12:00:00 AM EST active Nitrofurantoin Macrocrystal 50 M G eCW1 ([facility]) NITROFURANTOIN, MACROCRYSTALS 50 MG Oral Capsule Nitrofurantoin Macrocrystal 50 MG Nitrofurantoin Macrocrystal 50 MG 01/29/2020 12:00:00 AM EST active Nitrofurantoin Macrocrystal 50 M G eCW1 ([facility]) NITROFURANTOIN, MACROCRYSTALS 50 MG Oral Capsule Nitrofurantoin Macrocrystal 50 MG Nitrofurantoin Macrocrystal 50 MG 01/29/2020 12:00:00 AM EST active Nitrofurantoin Macrocrystal 50 M G eCW1 ([facility]) Administration Of Flu Vaccine 12/12/2019 12:00:00 AM EDT completed [facility]) Medication administered onsite NITROFURANTOIN, MACROCRYSTALS 25 MG / Ni trofurantoin, Monohydrate 75 MG Oral Capsule [Macrobid] Macrobid 08/28/2019 12:00:00 AM EDT ORAL completed [facility] ([facility] ) Insurance Providers Payer name Policy type / Coverage type Policy ID Covered republican ID Covered republican's relationship to king Policy King Plan Information UMR [facility] [id number] SP [id number] MEDICARE [id number] SP [id number] UMR O [id number] S [id number] MEDICARE C [id number] S [id number] R [facility] [id number] SP [id number] MEDICARE [id number] SP [id number] [place] JL PART B C [id number] S [id number] UMR [facility] [id number] SP [id number] Medicare Natl Govt Servic Medicare Primary [id number] Self [id number] [id number] Self [id number] Umr ([facility] [place] Part B [id number] Self [id number] MEDICARE [id number] SP [id number] A Medicare Natl Govt Servic Medicare Primary [id number] Self [id number] [place] Part B [id number] Self [id number] Medicare Natl Govt Servic Medicare Primary [id number] Self [id number] [place] [id number] SP [id number] Medicare Natl Govt Servic Medicare Primary [id number] Self [id number] [place] Ppo Medigap Part B [id number] Self [id number] Medicare Natl Govt Servic Medicare Primary [id number] Self [id number] Medicare [place]l Govt Servic Medicare Primary [id number] Self [id number] [place] PPO O [id number] S [id number] MEDICARE C [id number] S [id number] A Medicare Natl Govt Servic Medicare Primary [id number] Self [id number] [place] Ppo Medigap Part B Self Medicare Natl Govt Servic Medicare Primary Self POMCO [id number] SP [id number] [employer] PPO S [id number] S [id number] POMCO [id number] SP [id number] A Problems, Conditions, and Diagnoses Code Display Name Description Problem Type Effective Dates Data Source(s) N10 [id number] Acute pyelonephritis Problem 02/06/2020 12:0 0:00 AM EST eCW1 ([facility]) N20.1 Ureteric stone Left ureteral stone Problem 02/06/2020 1 2:00:00 AM EST eCW1 ([facility]) [id number] Essential hypertension Essential hypertension Problem 02/06/2020 12:00:00 AM EST MED[facility] ([facility] ) Results ID Date Data Source [id number] 03/01/2020 09:32:00 AM EST MED[facility] ([facility]) Name Value Range Interpretation Code Description Data Eloina rce(s) Supporting Document(s) White Blood Count 10.9 10 4.0-10.0 [facility] ([facility]) Red Blood Count 3.88 10 4.00-5.40 [facility] ([facility]) Hematocrit 38.9 % 36.0-47.0 [facility]) Hemoglobin 12.1 g/dL 12.0-15.5 [facility]) Mean Corpuscular Volume 100.3 fl 80.0-96.0 [facility] ([facility]) Mean Corpuscular Hemoglobin 31.2 pg 27.0-33.0 ME DENT ([facility]) Mean Corpuscular HGB Conc 31.1 g/dL 32.0-36.5 MEDE NT ([facility]) Red Cell Distribution Width 14.6 % 11.5-14.5 ME DENT ([facility]) Lymph % 6.3 % 24.0-44.0 [facility]) Neutrophils % 89.8 % 36.0-66.0 [facility] ([facility]) Platelet Count, Automated 251 10 150-450 MEDE NT ([facility]) Eos % 0.0 % 0.0-3.0 [facility]) Baso % 0.2 % 0.0-1.0 [facility]) [place] % 2.5 % 0.0-5.0 [facility]) Immature Granulocyte % 1.2 % 0-3.0 [facility] ([facility]) Nucleated Red Blood Cell % 0.0 % 0-0 MED ENT ([facility]) Neutrophils # 9.8 10 1.5-8.5 [facility] ([facility]) Lymph # 0.7 10 1.5-5.0 [facility] Eos # 0.0 10 0.0-0.5 [facility] [place] # 0.3 10 0.0-0.8 [facility] Baso # 0.0 10 0.0-0.2 [facility] ID Date Data Source [id number] 03/01/2020 09:32:00 AM EST MED[facility] ([facility]) Name Value Range Interpretation Code Description Data Eloina rce(s) Supporting Document(s) Prothrombin Time 19.2 s 12.5-14.3 [facility] ([facility]) Inr 1.58 [facility] ([facility] THERAPUTIC HUMAN INR VALUES INDICATIONS NORMAL RANGES PROPHYLAXIS/TREATMENT OF: VENOUS THROMBOSIS 2.0-3.0 PULMONARY EMBOLISM 2.0-3.0 PREVENTION OF SYSTEMIC EMBOLISM FROM: TISSUE HEART VALVES 2.0-3.0 ACUTE MYOCARDIAL INFARCTION 2.0-3.0 VALVULAR HEART DISEASE 2.0-3.0 ATRIAL FIBRILLATION 2.0-3.0 MECHANICAL VALVES(HIGH RISK) 2.5-3.5 RECURRENT MYOCARDIAL INFARCTION 2.5-3.5 ID Date Data Source [id number] 03/01/2020 09:32:00 AM EST MED[facility] ([facility]) Name Value Range Interpretation Code Description Data Eloina rce(s) Supporting Document(s) aPTT in Blood by Coagulation assay 55.0 s 24.2-38.5 [facility] ([facility]) ID Date Data Source [id number] 03/01/2020 09:32:00 AM EST MED[facility] ([facility]) Name Value Range Interpretation Code Description Data Eloina rce(s) Supporting Document(s) CPK Creatine Phosphokinase 213 U/L 26-192 MED ENT ([facility]) MB/CK Relative Index 1.88 [facility] ([facility]) <content>DIAGNOSIS CRITERIA</content>
<content>MMB ng/ml Relative Index (RI)</content>
<content>NON-AMI < or = 5 N/A</content>
<content>RIOS ZONE > 5 < or = 4</content>
<content>AMI > 5 > 4</content>
<content></content> CK-MB Value Mass 4.0 ng/mL MED[facility] ([facility]) Troponin I 0.03 ng/mL [facility] ([facility]) <content>Troponin I Reference Interval f or Siemens Seguin LOCI:</content>
<content></content>
<content>99th Percentile= 0.00-0.045 ng/ml</content>
<content></content>
<content>Risk Stratification:</content>
<content><= 0.10 ng/ml Decreased Risk for Adverse Clinical</content>
<content>Events.</content>
<content>0.10-1.50 ng/ml Increased Risk for Adverse Clinical</content>
<content>Events. Evaluation of additional</content>
<content>criterion and/or repeat testing in 2-6</content>
<content>hours is suggested to rule out myocardial</content>
<content>damage.</content>
<content>>= 1.50 ng/ml Indicative of Myocardial Injury.</content>
<content></content> ID Date Data Source [id number] 03/01/2020 09:32:00 AM EST MED[facility] ([facility]) Name Value Range Interpretation Code Description Data Eloina rce(s) Supporting Document(s) Ast/Sgot 19 U/L 7-37 [facility] ([facility] Alkaline Phosphatase 85 U/L 45-117 [facility] ([facility]) Alt/SGPT 15 U/L 12-78 [facility] ([facility] Bilirubin,Total 1.1 mg/dL 0.2-1.0 [facility] ([facility]) Bilirubin,Direct 0.3 mg/dL 0.0-0.2 [facility] ([facility]) Albumin 2.9 GM/DL 3.2-5.2 [facility] ([facility] Total Protein 7.5 GM/DL 6.4-8.2 MED[facility] ([facility]) Albumin/Globulin Ratio 0.6 1.2-2.2 [facility] ([facility]) ID Date Data Source [id number] 03/01/2020 09:32:00 AM EST MED[facility] ([facility]) Name Value Range Interpretation Code Description Data Eloina rce(s) Supporting Document(s) Glucose, Fasting 161 mg/dL 70-100 [facility] ([facility]) Glomerular Filtration Rate Laboratory test result [facility] ([facility]) <content>Units are mL/min/1.73 m2</content>
<content></content>
<content>Chronic Kidney Disease Staging per NKF:</content>
<content></content>
<content>Stage I & II GFR >=60 Normal to Mildly Decreased</content>
<content>Stage III GFR 30- 59 Moderately Decreased</content>
<content>Stage IV GFR 15-29 Severely Decreased</content>
<content>Stage V GFR <15 Very Little GFR Left</content>
<content>ESRD GFR <15 on CLASSROOM INSTRUCTOR</content>
<content></content> Blood Urea Nitrogen 9 mg/dL 7-18 [facility] ([facility]) Creatinine For GFR 0.76 mg/dL 0.55-1.30 [facility] ([facility]) Potassium Serum 3.6 meq/L 3.5-5.1 [facility] ([facility]) Sodium Level 138 meq/L 136-145 [facility] ([facility]) Chloride Level 102 meq/L 98-107 [facility] ([facility]) Anion Gap 6 meq/L 8-16 [facility] ([facility] Carbon Dioxide Level 30 meq/L 21-32 [facility] ([facility]) Calcium Level 9.4 mg/dL 8.8-10.2 [facility] ([facility]) ID Date Data Source [id number] 03/01/2020 09:32:00 AM EST MED[facility] ([facility]) Name Value Range Interpretation Code Description Data Eloina rce(s) Supporting Document(s) Amylase [Enzymatic activity/volume] in Serum or Plasma 27 U/L 25- 115 [facility] ([facility]) Lipoprotein lipase [Enzymatic activity/volume] in Serum or Plasm a 38 U/L 73-393 [facility] ([facility]) Lactate [Mass/volume] in Serum or Plasma 2.2 mmol/L 0.4-2.0 Above upper panic limits [facility] Y/N query for Sepsis Lactate Rule: Y Natriuretic peptide.B prohormone N-Terminal [Mass/volu me] in Serum or Plasma 3257 pg/mL [facility] ID Date Data Source [id number] 03/01/2020 09:31:00 AM EST MED[facility] ([facility]) Name Value Range Interpretation Code Description Data Eloina rce(s) Supporting Document(s) ABG pH (Arterial) 7.501 units 7.350-7.450 [facility] ( [facility]) ABG Partial Pressure Co2 40.3 mmHg 35.0-45.0 MEDEN T ([facility]) ABG Total Co2 32.0 meq/L 23.0-31.0 [facility] ([facility]) ABG Partial Pressure O2 85.0 mmHg 75.0-100.0 [facility] ABG Hco3 30.8 meq/L 22.0-26.0 [facility] ABG Standard Hco3 30.9 meq/L 22.0-26.0 MED[facility] ([facility]) ABG Base Excess 7.1 [facility] ([facility]) ABG O2 Saturation 97.0 % 95.0-99.0 [facility] ([facility]) ID Date Data Source [id number] 03/01/2020 09:31:00 AM EST [facility]) Name Value Range Interpretation Code Description Data Eloina rce(s) Supporting Document(s) Appearance, Urine RFX Laboratory test result [facility]) Specific [place] Ur Auto RFX 1.014 1.002-1.035 [facility] ([facility]) PH,Urine RFX 6.0 units 5.0-9.0 [facility] Color, Urine RFX Laboratory test result [facility] Protein, Urine Auto RFX Laboratory test result [facility] ([facility]) Ketone, Urine Auto RFX Laboratory test result [facility] ([facility]) Glucose, Urine (Ua) Auto RFX Laboratory test result [facility] Bilirubin, Urine Auto RFX Laboratory test result [facility] ([facility]) Urobilinogen, Urine Auto RFX 0.2 mg/dL 0.0-2.0 [facility] Leukocyte Esterase Ur Auto RFX Laboratory test result [facility] ([facility]) Nitrite, Urine Auto RFX Laboratory test result [facility] ([facility]) Blood, Urine Blood RFX Laboratory test result [facility] ([facility]) WBC, Urine Auto RFX 17 /HPF 0-3 MED[facility] ([facility]) RBC, Urine Auto RFX Laboratory test result 0-3 MED[facility] ([facility]) Hyaline Cast, Urine Auto RFX 0 /LPF 0-1 M [facility] Squam Epithelial Cell Ur Aurfx 1 /HPF 0-6 [facility] Bacteria, Urine Auto RFX Laboratory test result [facility] ([facility]) Amorphous Sediment RFX Laboratory test result [facility] ([facility]) ID Date Data Source [id number] 03/01/2020 09:31:00 AM EST [facility] Name Value Range Interpretation Code Description Data Eloina rce(s) Supporting Document(s) Blood Type Laboratory test result MED[facility] ([facility]) AB Screen (Indirect [place])Vis Laboratory test result MED[facility] ([facility]) ID Date Data Source [id number] 03/01/2020 09:31:00 AM EST [facility] Name Value Range Interpretation Code Description Data Eloina rce(s) Supporting Document(s) Blood group antibodies identified in Serum or Plasma Laboratory keira t result MED[facility] ([facility]) ID Date Data Source [id number] 03/01/2020 09:22:00 AM EST [facility] Name Value Range Interpretation Code Description Data Eloina rce(s) Supporting Document(s) Influenza A Amplification Laboratory test result [facility] Negative results do not preclude influen za or RSV virus infection and should not be used as the sole basis for treatment or other patient management decisions. Influenza B Amplification Laboratory test result [facility] Negative results do not preclude influen za or RSV virus infection and should not be used as the sole basis for treatment or other patient management decisions. RSV Amplification Laboratory test result [facility] Negative results do not preclude influen za or RSV virus infection and should not be used as the sole basis for treatment or other patient management decisions. Laboratory test finding (navigational concept) Laboratory test result [facility] A false negative result may occur if [...] pathogens. DISCLAIMER: Testing was performed using the [employer] SARS-CoV-2 test. This test was developed and its performance characteristics determined by [employer]. This test has not been FDA cleared [...] or revoked sooner. ID Date Data Source [id number] 03/01/2020 09:22:00 AM [facility] Name Value Range Interpretation Code Description Data Eloina rce(s) Supporting Document(s) SARS coronavirus 2 RNA [Presence] in Res piratory specimen by KIP with probe detection [facility] This lab was ordered by [facility] a nd reported by [facility]. ID Date Data Source [id number] 02/29/2020 08:14:00 AM EST MED[facility] ([facility]) Name Value Range Interpretation Code Description Data Eloina rce(s) Supporting Document(s) Color Laboratory test result [facility] ([facility]) Laboratory test finding (navigational concept) Laboratory test result [facility] ([facility]) Size Laboratory test result [facility] ([facility]) Multiple pieces received. Dimensions of the largest piece reported. Weight 77 mg [facility]) CA Oxalate Dihy 80 % [facility] ([facility]) Composition Laboratory test result MEDEN T ([facility]) . Percentage (Represents the % composition) Laboratory test finding (navigational concept) 5 % [facility] ([facility]) Laboratory test finding (navigational concept) Laboratory test result [facility] ([facility]) Ca Ox Monohydrate 15 % [facility] ([facility]) CA Phosphate Laboratory test result MEDE NT ([facility]) Uric Acid Laboratory test result [facility] ([facility]) MG [place] Phos Laboratory test result MED [facility] ([facility]) Ua Dihydrate Laboratory test result MEDE NT ([facility]) Amm Acid Urate Laboratory test result ME DENT ([facility]) Na Acid Urate Laboratory test result [facility] ([facility]) Laboratory test finding (navigational concept) Laboratory test result [facility] ([facility]) Laboratory test finding (navigational concept) Laboratory test result [facility] ([facility]) CA [place] Phos Laboratory test result [facility] ([facility]) Cystine Laboratory test result [facility] ([facility]) CA Bilirubinate Laboratory test result M EDENT ([facility]) Cholesterol Laboratory test result MEDEN T ([facility]) CA Carbonate Laboratory test result MEDE NT ([facility]) Bilirubin Laboratory test result [facility] ([facility]) Laboratory test finding (navigational concept) Laboratory test result [facility] ([facility]) Laboratory test finding (navigational concept) Laboratory test result [facility] ([facility]) Triamterene Laboratory test result MEDEN T ([facility]) Laboratory test finding (navigational concept) Laboratory test result MED[facility] ([facility]) [facility] Laboratory test result MEDENT ([facility]) Dried Blood Laboratory test result MEDEN T ([facility]) Cell Material Laboratory test result MED ENT ([facility]) Laboratory test finding (navigational concept) Laboratory test result MEDENT ([facility]) Comment Laboratory test result MED[facility] ([facility]) Comment Laboratory test result MEDENT ([facility]) . Physician questions regarding Calculi Analysis contact [employer] at: [phone]. Comment Laboratory test result MEDENT ([facility]) Disclaimer Laboratory test result MEDENT ([facility]) . This test was developed and its performance characteristics determined by [employer]. It has not been cleared or approved by the Food and Drug Administration. Performed at: [facility] [employer] [facility] [employer] [address] [place] [address] [address], [place], [place] [id number] [place]rick Operator: Ren Cheng MD, Phone: [phone] Please Note: Laboratory test result MEDE NT ([facility]) . Calculi report will follow via computer, mail or junior marketing associate delivery. Laboratory test finding (navigational concept) Laboratory test result MEDENT ([facility]) . Photograph will follow under a separate cover ID Date Data Source [id number] 02/26/2020 10:58:00 AM EST MEDENT ([facility]) Name Value Range Interpretation Code Description Data Eloina rce(s) Supporting Document(s) Urea nitrogen [Mass/volume] in Serum or Plasma 6 mg/dL 7-18 [facility] ([facility]) Glucose [Mass/volume] in Serum or Plasma 118 mg/dL 74-99 [facility] ([facility]) 100-125 mg/dL PRE-DIABETES/FASTING >126 mg/dL DIABETES/FASTING Creatinine 0.7 mg/dL 0.6-1.3 [facility] Sodium [Moles/volume] in Serum or Plasma 143 meq/L 136-145 [facility] ([facility]) Potassium [Moles/volume] in Serum or Plasma 3.1 meq/L 3.5-5.1 [facility] ([facility]) NOTE: RESULT VERIFIED. Chloride [Moles/volume] in Serum or Plasma 103 meq/L 98-107 [facility] ([facility]) Carbon dioxide, total [Moles/volume] in Serum or Plasma 29 meq/L 21 -32 [facility] ([facility]) Calcium [Mass/volume] in Serum or Plasma 9.6 mg/dL 8.5-10.1 [facility] ([facility]) Glomerular filtration rate/1.73 sq M pre dicted among blacks [Volume Rate/Area] in Serum or Plasma by Creatinine-based formula (MDRD) Laboratory test result MEDENT ([facility]) <content>CHRONIC KIDNEY DISEASE STAGING PER NKF</content>
<content></content>
<content>STAGE I & II GFR >= 60 NORMAL TO MILDLY DECREASED</content>
<content>STAGE III GFR 30-59 MODERATELY DECREASED</content>
<content>STAGE IV GFR 15-29 SEVERELY DECREASED</content>
<content>STAGE V GFR <15 VERY LITTLE GFR LEFT</content>
<content>ESRD GFR <15 ON CLASSROOM INSTRUCTOR</content>
<content></content> Glomerular filtration rate/1.73 sq M pre dicted among non-blacks [Volume Rate/Area] in Serum or Plasma by Creatinine-based formula (MDRD) Laboratory [facility] ID Date Data Source [id number] 02/26/2020 10:58:00 AM EST MEDENT ([facility]) Name Value Range Interpretation Code Description Data Eloina rce(s) Supporting Document(s) Magnesium 2.0 mg/dL 1.8-2.4 [facility] ([facility]) ID Date Data Source [id number] 02/26/2020 10:58:00 AM EST MEDENT ([facility]) Name Value Range Interpretation Code Description Data Eloina rce(s) Supporting Document(s) Erythrocytes [#/volume] in Blood by Automated count 3.81 x10*6/UL 4.2 0-6.30 [facility] ([facility]) Leukocytes [#/volume] in Blood by Automated count 5.2 x10*3/UL 4.1-10 .9 [facility] ([facility]) Hemoglobin [Mass/volume] in Blood 12.4 g/dL 12.0-18.0 [facility] ([facility]) Hematocrit [Volume Fraction] of Blood by Automated count 35.5 % 3 7.0-51.0 [facility] ([facility]) MCV 93.3 fL 80.0-97.0 [facility] MCH 32.5 pg 26.0-32.0 [facility] ([facility]) Erythrocyte distribution width [Ratio] by Automated count 13.7 % 11.6-13.7 [facility] ([facility]) Platelets [#/volume] in Blood by Automated count 264 x10*3/UL 140-440 [facility] ([facility]) MCHC 34.8 g/dL 31.0-38.0 [facility] Lymph % 27.5 % 10.0-58.5 [facility] MPV 9.4 FL 7.8-11.0 [facility] Neut % 65.5 % 37.0-92.0 [facility] Mid % 7.0 % 1.7-9.3 [facility] Lymph # 1.4 x10*3/UL 0.6-4.1 [facility] ([facility]) Neut # 3.4 x10*3/UL 2.0-7.8 [facility] ([facility]) Mid # 0.4 x10*3/UL 0.1-0.6 [facility] ([facility]) ID Date Data Source [id number] 02/24/2020 11:00:00 AM EST [facility] Name Value Range Interpretation Code Description Data Eloina rce(s) Supporting Document(s) SARS coronavirus 2 RNA [facility] This lab was ordered by [facility] and reported by [facility]. ID Date Data Source [id number] 02/06/2020 09:43:00 AM EST MEDENT ([facility]) Name Value Range Interpretation Code Description Data Eloina rce(s) Supporting Document(s) C reactive protein [Mass/volume] in Serum or Plasma by High sensitivity method 1.09 mg/dL 0.00-0.30 [facility] ([facility] ) ID Date Data Source [id number] 02/06/2020 09:42:00 AM EST MED[facility] ([facility]) Name Value Range Interpretation Code Description Data Eloina rce(s) Supporting Document(s) Leukocytes [#/volume] in Blood by Automated count 6.2 x10*3/UL 4.1-10 .9 [facility] ([facility]) Erythrocytes [#/volume] in Blood by Automated count 3.73 x10*6/UL 4.2 0-6.30 [facility] ([facility]) Hematocrit [Volume Fraction] of Blood by Automated count 35.9 % 3 7.0-51.0 [facility] ([facility]) Hemoglobin [Mass/volume] in Blood 12.2 g/dL 12.0-18.0 [facility] ([facility]) MCV 96.1 fL 80.0-97.0 [facility] MCH 32.7 pg 26.0-32.0 [facility] MCHC 34.0 g/dL 31.0-38.0 [facility] ([facility]) Erythrocyte distribution width [Ratio] by Automated count 13.9 % 11.6-13.7 [facility] ([facility]) Platelets [#/volume] in Blood by Automated count 256 x10*3/UL 140-440 [facility] ([facility]) MPV 9.7 FL 7.8-11.0 [facility]) Mid % 6.6 % 1.7-9.3 [facility] ([facility] Lymph % 24.3 % 10.0-58.5 [facility] ([facility]) Lymph # 1.5 x10*3/UL 0.6-4.1 [facility] ([facility]) Neut % 69.1 % 37.0-92.0 [facility] ([facility]) Mid # 0.4 x10*3/UL 0.1-0.6 [facility] ([facility]) Neut # 4.3 x10*3/UL 2.0-7.8 [facility] ([facility]) ID Date Data Source [id number] 02/06/2020 09:42:00 AM EST MED[facility] ([facility]) Name Value Range Interpretation Code Description Data Eloina rce(s) Supporting Document(s) Erythrocyte sedimentation rate by Westergren method 42 mm/hr 0-15 [facility] ([facility]) ID Date Data Source [id number] 02/06/2020 09:42:00 AM EST MED[facility] ([facility]) Name Value Range Interpretation Code Description Data Eloina rce(s) Supporting Document(s) Urea nitrogen [Mass/volume] in Serum or Plasma 13 mg/dL 7-18 [facility] ([facility]) Glucose [Mass/volume] in Serum or Plasma 106 mg/dL 74-99 [facility] ([facility]) 100-125 mg/dL PRE-DIABETES/FASTING >126 mg/dL DIABETES/FASTING Potassium [Moles/volume] in Serum or Plasma 4.0 meq/L 3.5-5.1 [facility] ([facility]) Sodium [Moles/volume] in Serum or Plasma 143 meq/L 136-145 [facility] ([facility]) Creatinine 0.7 mg/dL 0.6-1.3 [facility] ([facility]) Carbon dioxide, total [Moles/volume] in Serum or Plasma 27 meq/L 21 -32 [facility] ([facility]) Chloride [Moles/volume] in Serum or Plasma 106 meq/L 98-107 [facility] ([facility]) Calcium [Mass/volume] in Serum or Plasma 9.8 mg/dL 8.5-10.1 [facility] ([facility]) Total Bilirubin 1.0 mg/dL 0.2-1.0 [facility] ([facility]) Alkaline phosphatase isoenzyme [Units/volume] in Serum or Pl asma 87 mg/dL 46-116 [facility] ([facility]) Alanine aminotransferase [Enzymatic activity/volume] in Seru m or Plasma 19 U/L 12-78 [facility] Albumin [Mass/volume] in Serum or Plasma 3.6 g/dL 3.4-5.0 [facility] ([facility]) Aspartate aminotransferase [Enzymatic activity/volume] in Serum or Plasma 21 U/L 15-37 [facility] Proteinase 3 Ab [Units/volume] in Serum 7.1 g/dL 6.4-8.2 [facility] ([facility]) A/G Ratio 1.03 CALC 1.00-1.90 [facility]) Glomerular filtration rate/1.73 sq M pre dicted among non-blacks [Volume Rate/Area] in Serum or Plasma by Creatinine-based formula (MDRD) Laboratory test result [facility] Glomerular filtration rate/1.73 sq M pre dicted among blacks [Volume Rate/Area] in Serum or Plasma by Creatinine-based formula (MDRD) Laboratory test result [facility] ([facility]) <content>CHRONIC KIDNEY DISEASE STAGING PER NKF</content>
<content></content>
<content>STAGE I & II GFR >= 60 NORMAL TO MILDLY DECREASED</content>
<content>STAGE III GFR 30-59 MODERATELY DECREASED</content>
<content>STAGE IV GFR 15-29 SEVERELY DECREASED</content>
<content>STAGE V GFR <15 VERY LITTLE GFR LEFT</content>
<content>ESRD GFR <15 ON CLASSROOM INSTRUCTOR</content>
<content></content> ID Date Data Source [id number] 01/08/2020 09:06:00 AM EDT [facility] ([facility]) Name Value Range Interpretation Code Description Data Eloina rce(s) Supporting Document(s) Appearance, Urine RFX Laboratory test result [facility] ([facility]) Color, Urine RFX Laboratory test result [facility] ([facility]) PH,Urine RFX 6.0 units 5.0-9.0 [facility] Protein, Urine Auto RFX Laboratory test result [facility] ([facility]) Specific [place] Ur Auto RFX 1.013 1.002-1.035 [facility] ([facility]) Ketone, Urine Auto RFX Laboratory test result [facility] ([facility]) Glucose, Urine (Ua) Auto RFX Laboratory [facility]) Bilirubin, Urine Auto RFX Laboratory test result [facility] ([facility]) Urobilinogen, Urine Auto RFX 0.2 mg/dL 0.0-2.0 [facility] ([facility]) Nitrite, Urine Auto RFX Laboratory test result [facility] ([facility]) Leukocyte Esterase Ur Auto RFX Laboratory test result [facility] ([facility]) Blood, Urine Blood RFX Laboratory test result [facility] ([facility]) RBC, Urine Auto RFX 20 /HPF 0-3 [facility]) WBC, Urine Auto RFX 16 /HPF 0-3 [facility] ([facility]) Bacteria, Urine Auto RFX Laboratory test result [facility] ([facility]) Squam Epithelial Cell Ur Aurfx 0 /HPF 0-6 [facility] ([facility]) Hyaline Cast, Urine Auto RFX 3 /LPF 0-1 [facility]) Mucus, Urine RFX Laboratory test result [facility] ([facility]) ID Date Data Source [id number] 01/08/2020 08:47:00 AM EDT [facility]) Name Value Range Interpretation Code Description Data Eloina rce(s) Supporting Document(s) Platelets [#/volume] in Blood by Estimate Laboratory test result [facility] ([facility]) Natriuretic peptide.B prohormone N-Terminal [Mass/volu me] in Serum or Plasma 23905 pg/mL [facility] ([facility] ) ID Date Data Source [id number] 01/08/2020 08:47:00 AM EDT [facility]) Name Value Range Interpretation Code Description Data Eloina rce(s) Supporting Document(s) Bands 12 % [facility] Neutrophils 80 % 28-66 [facility] ([facility]) Lymphocytes 5 % 16-44 [facility] ([facility]) Monocytes 2 % 0-5 [facility] ([facility]) Metamyelocytes 1 % 0-0 [facility] ([facility]) Laboratory test finding (navigational concept) Laboratory test result MEDENT ([facility]) Macrocytosis Laboratory test result MEDE NT ([facility]) ID Date Data Source [id number] 01/08/2020 08:47:00 AM EDT MEDENT ([facility]) Name Value Range Interpretation Code Description Data Eloina rce(s) Supporting Document(s) White Blood Count 16.1 10 4.0-10.0 [facility] ([facility]) Red Blood Count 3.91 10 4.00-5.40 [facility] ([facility]) Hematocrit 39.4 % 36.0-47.0 [facility] ([facility]) Hemoglobin 12.8 g/dL 12.0-15.5 [facility] ([facility]) Mean Corpuscular Volume 100.8 fl 80.0-96.0 [facility] ([facility]) Mean Corpuscular Hemoglobin 32.7 pg 27.0-33.0 [facility] ([facility]) Red Cell Distribution Width 13.6 % 11.5-14.5 [facility] ([facility]) Mean Corpuscular HGB Conc 32.5 g/dL 32.0-36.5 MEDE NT ([facility]) Platelet Count, Automated 100 10 150-450 MEDE NT ([facility]) Nucleated Red Blood Cell % 0.1 % 0-0 MED ENT ([facility]) ID Date Data Source [id number] 01/08/2020 08:47:00 AM EDT MED[facility] ([facility]) Name Value Range Interpretation Code Description Data Eloina rce(s) Supporting Document(s) Blood Urea Nitrogen 22 mg/dL 7-18 [facility] ([facility]) Glucose, Fasting 167 mg/dL 70-100 [facility] ([facility]) Glomerular Filtration Rate 45.1 MED ENT ([facility]) <content>Units are mL/min/1.73 m2</content>
<content></content>
<content>Chronic Kidney Disease Staging per NKF:</content>
<content></content>
<content>Stage I & II GFR >=60 Normal to Mildly Decreased</content>
<content>Stage III GFR 30- 59 Moderately Decreased</content>
<content>Stage IV GFR 15-29 Severely Decreased</content>
<content>Stage V GFR <15 Very Little GFR Left</content>
<content>ESRD GFR <15 on CLASSROOM INSTRUCTOR</content>
<content></content> Sodium Level 142 meq/L 136-145 [facility] ([facility]) Creatinine For GFR 1.21 mg/dL 0.55-1.30 [facility] ([facility]) Chloride Level 109 meq/L 98-107 [facility] ([facility]) Potassium Serum 3.7 meq/L 3.5-5.1 [facility] ([facility]) Calcium Level 9.9 mg/dL 8.8-10.2 [facility] ([facility]) Carbon Dioxide Level 23 meq/L 21-32 [facility] ([facility]) Anion Gap 10 meq/L 8-16 [facility] ([facility]) ID Date Data Source [id number] 01/08/2020 08:47:00 AM EDT MED[facility] ([facility]) Name Value Range Interpretation Code Description Data Eloina rce(s) Supporting Document(s) Ast/Sgot 66 U/L 7-37 [facility] ([facility]) Alt/SGPT 35 U/L 12-78 [facility] ([facility]) Bilirubin,Total 2.9 mg/dL 0.2-1.0 [facility] ([facility]) Alkaline Phosphatase 82 U/L 45-117 [facility] ([facility]) Albumin 3.3 GM/DL 3.2-5.2 [facility] ([facility]) Bilirubin,Direct 0.6 mg/dL 0.0-0.2 [facility] ([facility]) Total Protein 7.2 GM/DL 6.4-8.2 [facility]) Albumin/Globulin Ratio 0.8 1.2-2.2 [facility] ([facility]) ID Date Data Source [id number] 01/08/2020 08:47:00 AM EDT MED[facility] ([facility]) Name Value Range Interpretation Code Description Data Eloina rce(s) Supporting Document(s) CPK Creatine Phosphokinase 813 U/L 26-192 MED ENT ([facility]) CK-MB Value Mass 5.8 ng/mL [facility] ([facility]) Troponin I 0.25 ng/mL [facility] ([facility]) <content>Troponin I Reference Interval f or Siemens Seguin LOCI:</content>
<content></content>
<content>99th Percentile= 0.00-0.045 ng/ml</content>
<content></content>
<content>Risk Stratification:</content>
<content><= 0.10 ng/ml Decreased Risk for Adverse Clinical</content>
<content>Events.</content>
<content>0.10-1.50 ng/ml Increased Risk for Adverse Clinical</content>
<content>Events. Evaluation of additional</content>
<content>criterion and/or repeat testing in 2-6</content>
<content>hours is suggested to rule out myocardial</content>
<content>damage.</content>
<content>>= 1.50 ng/ml Indicative of Myocardial Injury.</content>
<content></content> MB/CK Relative Index 0.71 [facility] <content>DIAGNOSIS CRITERIA</content>
<content>MMB ng/ml Relative Index (RI)</content>
<content>NON-AMI < or = 5 N/A</content>
<content>RIOS ZONE > 5 < or = 4</content>
<content>AMI > 5 > 4</content>
<content></content> ID Date Data Source [id number] 01/08/2020 08:28:00 AM EDT MED[facility] ([facility]) Name Value Range Interpretation Code Description Data Eloina rce(s) Supporting Document(s) Lactate [Mass/volume] in Serum or Plasma 4.9 mmol/L 0.4-2.0 Above upper panic limits [facility] ([facility]) Y/N query for Sepsis Lactate Rule: Y ID Date Data Source [id number] 12/11/2019 09:54:00 AM EDT [facility] ([facility]) Name Value Range Interpretation Code Description Data Eloina rce(s) Supporting Document(s) Glucose [Mass/volume] in Serum or Plasma 108 mg/dL 74-99 [facility] ([facility]) 100-125 mg/dL PRE-DIABETES/FASTING >126 mg/dL DIABETES/FASTING Creatinine 0.7 mg/dL 0.6-1.3 [facility] ([facility]) Urea nitrogen [Mass/volume] in Serum or Plasma 15 mg/dL 7-18 [facility] ([facility]) Sodium [Moles/volume] in Serum or Plasma 141 meq/L 136-145 [facility] ([facility]) Carbon dioxide, total [Moles/volume] in Serum or Plasma 23 meq/L 21 -32 [facility] ([facility]) Calcium [Mass/volume] in Serum or Plasma 9.5 mg/dL 8.5-10.1 [facility] ([facility]) Potassium [Moles/volume] in Serum or Plasma 4.4 meq/L 3.5-5.1 [facility] ([facility]) Chloride [Moles/volume] in Serum or Plasma 105 meq/L 98-107 [facility] ([facility]) Glomerular filtration rate/1.73 sq M pre dicted among non-blacks [Volume Rate/Area] in Serum or Plasma by Creatinine-based formula (MDRD) Laboratory test result [facility] ([facility] ) Glomerular filtration rate/1.73 sq M pre dicted among blacks [Volume Rate/Area] in Serum or Plasma by Creatinine-based formula (MDRD) Laboratory test result [facility] ([facility]) <content>CHRONIC KIDNEY DISEASE STAGING PER NKF</content>
<content></content>
<content>STAGE I & II GFR >= 60 NORMAL TO MILDLY DECREASED</content>
<content>STAGE III GFR 30-59 MODERATELY DECREASED</content>
<content>STAGE IV GFR 15-29 SEVERELY DECREASED</content>
<content>STAGE V GFR <15 VERY LITTLE GFR LEFT</content>
<content>ESRD GFR <15 ON CLASSROOM INSTRUCTOR</content>
<content></content> ID Date Data Source [id number] 12/11/2019 09:54:00 AM EDT [facility] ([facility]) Name Value Range Interpretation Code Description Data Eloina rce(s) Supporting Document(s) Hemoglobin [Mass/volume] in Blood 14.4 g/dL 12.0-18.0 [facility] ([facility]) Erythrocytes [#/volume] in Blood by Automated count 4.43 x10*6/UL 4.2 0-6.30 [facility] ([facility]) Leukocytes [#/volume] in Blood by Automated count 5.5 x10*3/UL 4.1-10 .9 [facility] ([facility]) NOTE: RESULT VERIFIED. Hematocrit [Volume Fraction] of Blood by Automated count 42.6 % 3 7.0-51.0 [facility] ([facility]) MCH 32.6 pg 26.0-32.0 [facility] MCV 96.1 fL 80.0-97.0 [facility] ([facility]) Platelets [#/volume] in Blood by Automated count 119 x10*3/UL 140-440 [facility] Erythrocyte distribution width [Ratio] by Automated count 13.4 % 11.6-13.7 [facility] ([facility]) MCHC 33.9 g/dL 31.0-38.0 [facility] ([facility]) Lymph % 51.8 % 10.0-58.5 [facility] Mid % 7.9 % 1.7-9.3 [facility] MPV 9.7 FL 7.8-11.0 [facility] ([facility]) Neut % 40.3 % 37.0-92.0 [facility] ([facility]) Mid # 0.5 x10*3/UL 0.1-0.6 [facility] ([facility]) Lymph # 2.8 x10*3/UL 0.6-4.1 [facility] ([facility]) Neut # 2.2 x10*3/UL 2.0-7.8 [facility] ([facility]) ID Date Data Source [id number] 12/11/2019 09:00:00 AM EDT [facility] ([facility]) Name Value Range Interpretation Code Description Data Eloina rce(s) Supporting Document(s) Urine Creatinine 48.9 mg/dL 30.0-125.0 [facility] ([facility]) Microalbumin Urine 18.6 mg/L 1.3-20.0 [facility] ([facility]) Microalb/Creat Ratio 38.0 ug/mg 0.0-30.0 [facility] ( [facility]) ID Date Data Source [id number] 12/11/2019 09:00:00 AM EDT [facility] ([facility]) Name Value Range Interpretation Code Description Data Eloina rce(s) Supporting Document(s) Urine PH 8.0 units 5.0-9.0 [facility] ([facility]) Urine Appearance Laboratory test result Abnormal (applies to non-numeric results) [facility] ([facility]) Urine Color Laboratory test result [facility] ([facility]) Urine Leukocytes [facility] Specific gravity of Urine 1.010 1.005-1.030 [facility] ([facility]) Urine Blood Laboratory test result [facility] ([facility]) Urine Protein Laboratory test result 0-0 [facility] ([facility]) Urine Nitrite Laboratory test result Abnormal (applies to non-numeric results) [facility] ([facility]) Glucose [Presence] in Urine Laboratory test result [facility] ([facility]) Urine Urobilinogen 0.2 mg/dL 0.2-1.0 [facility] ([facility]) Urine Ketone Laboratory test [facility] Bilirubin.total [Mass/volume] in Serum or Plasma Laboratory test resu lt [facility] ID Date Data Source [id number] 08/28/2019 08:13:00 AM EDT [facility] ([facility] Name Value Range Interpretation Code Description Data Eloina rce(s) Supporting Document(s) Urine Color Laboratory test result [facility] Urine PH 6.0 units 5.0-9.0 [facility] Urine Appearance Laboratory test result Abnormal (applies to non-numeric results) [facility] ([facility]) Urine Blood Laboratory test result Abnormal (applies to non-numeric results) [facility] Specific gravity of Urine 1.020 1.005-1.030 NE [facility] ([facility]) Urine Leukocytes Laboratory test result Abnormal (applies to non-numeric results) [facility] Glucose [Presence] in Urine Laboratory test result [facility] Urine Protein Laboratory test result 0-0 Abnormal (applies to non-numeric results) [facility] ([facility]) Urine Nitrite Laboratory test result Abnormal (applies to non-numeric results) [facility] ([facility]) Urine Ketone Laboratory test result [facility] NT [facility] Urine Urobilinogen 0.2 mg/dL 0.2-1.0 [facility] ([facility]) Bilirubin.total [Mass/volume] in Serum or Plasma Laboratory test resu lt [facility] ID Date Data Source [id number] 08/28/2019 08:13:00 AM EDT [facility] ([facility] Name Value Range Interpretation Code Description Data Eloina rce(s) Supporting Document(s) Thyrotropin [Units/volume] in Serum or Plasma by Detec tion limit <= 0.05 mIU/L 1.29 uIU/mL 0.36-3.74 [facility] ([facility] ) ID Date Data Source [id number] 08/28/2019 08:13:00 AM EDT [facility] ([facility]) Name Value Range Interpretation Code Description Data Eloina rce(s) Supporting Document(s) Triglyceride [Mass/volume] in Serum or Plasma 146 mg/dL 30-150 [facility] ([facility]) Cholesterol [Mass/volume] in Serum or Plasma 169 mg/dL 131-200 [facility] ([facility]) Cholesterol in HDL [Mass/volume] in Serum or Plasma 61 mg/dL 35-60 [facility] ([facility]) Cholesterol in LDL [Mass/volume] in Serum or Plasma by calcu lation 79 CALC 50-159 [facility] ([facility]) ID Date Data Source [id number] 08/28/2019 08:13:00 AM EDT [facility] ([facility]) Name Value Range Interpretation Code Description Data Eloina rce(s) Supporting Document(s) Glucose [Mass/volume] in Serum or Plasma 94 mg/dL 74-99 [facility] ([facility]) 100-125 mg/dL PRE-DIABETES/FASTING >126 mg/dL DIABETES/FASTING Urea nitrogen [Mass/volume] in Serum or Plasma 13 mg/dL 7-18 [facility] ([facility]) Creatinine 0.7 mg/dL 0.6-1.3 [facility] Sodium [Moles/volume] in Serum or Plasma 142 meq/L 136-145 [facility] ([facility]) Potassium [Moles/volume] in Serum or Plasma 4.5 meq/L 3.5-5.1 [facility] ([facility]) Carbon dioxide, total [Moles/volume] in Serum or Plasma 25 meq/L 21 -32 [facility] ([facility]) Chloride [Moles/volume] in Serum or Plasma 106 meq/L 98-107 [facility] ([facility]) Calcium [Mass/volume] in Serum or Plasma 9.7 mg/dL 8.5-10.1 [facility] ([facility]) Alkaline phosphatase isoenzyme [Units/volume] in Serum or Pl asma 63 mg/dL 46-116 [facility] ([facility]) Total Bilirubin 1.9 mg/dL 0.2-1.0 [facility] ([facility]) Aspartate aminotransferase [Enzymatic activity/volume] in Serum or Plasma 22 U/L 15-37 [facility] ([facility] ) Alanine aminotransferase [Enzymatic activity/volume] in Seru m or Plasma 21 U/L 12-78 [facility] ([facility]) Albumin [Mass/volume] in Serum or Plasma 4.0 g/dL 3.4-5.0 [facility] ([facility]) A/G Ratio 1.25 CALC 1.00-1.90 [facility] ([facility]) Proteinase 3 Ab [Units/volume] in Serum 7.2 g/dL 6.4-8.2 [facility] ([facility]) Glomerular filtration rate/1.73 sq M pre dicted among non-blacks [Volume Rate/Area] in Serum or Plasma by Creatinine-based formula (MDRD) Laboratory test result [facility] ([facility] ) Glomerular filtration rate/1.73 sq M pre dicted among blacks [Volume Rate/Area] in Serum or Plasma by Creatinine-based formula (MDRD) Laboratory test result [facility] <content>CHRONIC KIDNEY DISEASE STAGING PER NKF</content>
<content></content>
<content>STAGE I & II GFR >= 60 NORMAL TO MILDLY DECREASED</content>
<content>STAGE III GFR 30-59 MODERATELY DECREASED</content>
<content>STAGE IV GFR 15-29 SEVERELY DECREASED</content>
<content>STAGE V GFR <15 VERY LITTLE GFR LEFT</content>
<content>ESRD GFR <15 ON CLASSROOM INSTRUCTOR</content>
<content></content> ID Date Data Source [id number] 08/28/2019 08:13:00 AM EDT [facility] ([facility]) Name Value Range Interpretation Code Description Data Eloina rce(s) Supporting Document(s) Magnesium 2.1 mg/dL 1.8-2.4 [facility] ([facility] ID Date Data Source [id number] 08/28/2019 08:13:00 AM EDT [facility] ([facility]) Name Value Range Interpretation Code Description Data Eloina rce(s) Supporting Document(s) Leukocytes [#/volume] in Blood by Automated count 4.0 x10*3/UL 4.1-10 .9 [facility] ([facility]) Hemoglobin [Mass/volume] in Blood 14.3 g/dL 12.0-18.0 [facility] ([facility]) Erythrocytes [#/volume] in Blood by Automated count 4.31 x10*6/UL 4.2 0-6.30 [facility] ([facility]) Hematocrit [Volume Fraction] of Blood by Automated count 42.0 % 3 7.0-51.0 [facility] ([facility]) MCV 97.3 fL 80.0-97.0 [facility] MCH 33.1 pg 26.0-32.0 [facility] MCHC 34.0 g/dL 31.0-38.0 [facility] Platelets [#/volume] in Blood by Automated count 193 x10*3/UL 140-440 [facility] ([facility]) Erythrocyte distribution width [Ratio] by Automated count 13.5 % 11.6-13.7 [facility] ([facility]) MPV 9.5 FL 7.8-11.0 [facility] Lymph % 37.8 % 10.0-58.5 [facility] Mid % 7.9 % 1.7-9.3 [facility] Neut % 54.3 % 37.0-92.0 [facility] Lymph # 1.5 x10*3/UL 0.6-4.1 [facility] ([facility]) Mid # 0.4 x10*3/UL 0.1-0.6 [facility] ([facility]) Neut # 2.1 x10*3/UL 2.0-7.8 [facility] ([facility]) Procedure Social History Code Duration Value Status Description Data Source(s ) Smoking 03/13/2020 12:00:00 AM EST Never Smoker completed Never S moker eCW1 ([facility]) Smoking 03/13/2020 12:00:00 AM EST Never Smoker completed Never S moker eCW1 ([facility]) Smoking 03/13/2020 12:00:00 AM EST Never Smoker completed Never S moker eCW1 ([facility]) Smoking 02/06/2020 12:00:00 AM EST Never Smoker completed Never S moker eCW1 ([facility]) Smoking 02/06/2020 12:00:00 AM EST Never Smoker completed Never S moker eCW1 ([facility]) Smoking 02/06/2020 12:00:00 AM EST Never Smoker completed Never S moker eCW1 ([facility]) Smoking 02/06/2020 12:00:00 AM EST Never Smoker completed Never S moker eCW1 ([facility]) Vital Signs ID Date Data Source UNK Name Value Range Interpretation Code Description Data Source(s) Diastolic blood pressure 64 mm[Hg] 64 mm[Hg] eCW1 ([facility]) Systolic blood pressure 122 mm[Hg] 122 mm[Hg] e CW1 ([facility]) Body temperature 98.0 [degF] 98.0 [degF] eCW1 ( [facility]) Respiratory rate 18 /min 18 /min eCW1 ([facility]) Heart rate 101 /min 101 /min eCW1 ([facility]) Body mass index (BMI) [Ratio] 33.85 kg/m2 33.85 kg/m2 W1 ([facility]) Body height 58 [in_i] 58 [in_i] eCW1 ([facility]) Body weight 162 [lb_av] 162 [lb_av] eCW1 ([facility]) Body mass index (BMI) [Ratio] 26.1 kg/m2 26.1 k g/m2 [facility] ([facility]) Oxygen saturation in Arterial blood by Pulse oximetry 94 % 94 % [facility] ([facility]) Body weight 159.00 [lb_av] 159.00 [lb_av] [facility] T ([facility]) Body height 65.5 [in_i] 65.5 [in_i] [facility] ([facility]) 5'5.50" Heart rate 106 /min 106 /min [facility] ([facility]) Diastolic blood pressure 76 mm[Hg] 76 mm[Hg] [facility] ([facility]) Systolic blood pressure 124 mm[Hg] 124 mm[Hg] M EDENT ([facility]) Body weight 70.308 kg 70.308 kg [facility] ([facility] [place] body weight 100 [lb_av] 100 [lb_av] MED[facility] T ([facility]) Body mass index (BMI) [Ratio] 33.5 kg/m2 33.5 k g/m2 [facility] ([facility]) Body weight 155.00 [lb_av] 155.00 [lb_av] [facility] T ([facility]) Body height 57 [in_i] 57 [in_i] [facility] ([facility]) 4'9" Heart rate 101 /min 101 /min [facility] ([facility]) Diastolic blood pressure 78 mm[Hg] 78 mm[Hg] [facility] ([facility]) Systolic blood pressure 113 mm[Hg] 113 mm[facility]Hg] [facility] Diastolic blood pressure mm[Hg] eCW1 ([facility]) Systolic blood pressure 118 mm[Hg] 118 mm[Hg] e CW1 ([facility]) Body temperature 96.8 [degF] 96.8 [degF] eCW1 ( [facility]) Respiratory rate 17 /min 17 /min eCW1 ([facility]) Heart rate 97 /min 97 /min eCW1 ([facility]) Body mass index (BMI) [Ratio] 33.85 kg/m2 33.85 kg/m2 eCW1 ([facility]) Body height 58 [in_i] 58 [in_i] eCW1 ([facility]) Body weight 162 [lb_av] 162 [lb_av] eCW1 ([facility]) Body mass index (BMI) [Ratio] 35.7 kg/m2 35.7 k g/m2 [facility] ([facility]) Oxygen saturation in Arterial blood by Pulse oximetry 96 % 96 % [facility] ([facility]) RM Air Body weight 162.00 [lb_av] 162.00 [lb_av] [facility] T ([facility]) Body height 56.50 [in_i] 56.50 [in_i] [facility] ([facility]) 4'8.50" Heart rate 97 /min 97 /min [facility] ([facility]) Diastolic blood pressure 78 mm[Hg] 78 mm[Hg] [facility] ([facility]) LT Arm Systolic blood pressure 124 mm[Hg] 124 mm[Hg] M EDENT ([facility]) LT Arm Body mass index (BMI) [Ratio] 35.0 kg/m2 35.0 k g/m2 [facility] ([facility]) Oxygen saturation in Arterial blood by Pulse oximetry --post exerci se 94 % 94 % [facility] ([facility]) RM Air Body weight 159.00 [lb_av] 159.00 [lb_av] [facility] T ([facility]) Body height 56.50 [in_i] 56.50 [in_i] [facility] ([facility]) 4'8.50" Heart rate 105 /min 105 /min [facility] ([facility]) Diastolic blood pressure 58 mm[Hg] 58 mm[Hg] [facility] ([facility]) Systolic blood pressure 108 mm[Hg] 108 [facility]Hg] [facility] Body mass index (BMI) [Ratio] 34.2 kg/m2 34.2 k g/m2 [facility] ([facility]) Body weight 155.38 [lb_av] 155.38 [lb_av] [facility] T ([facility]) Body height 56.50 [in_i] 56.50 [in_i] FLORESITA ([facility]) 4'8.50" Diastolic blood pressure 66 mm[Hg] 66 mm[Hg] FLORESITA ([facility]) Systolic blood pressure 132 mm[Hg] 132 mm[Hg] M BRIAN ([facility]) Patient Treatment Plan of Care Planned Activity Planned Date Details Description Data Source (s) Fluconazole 150 MG Oral Tablet [Diflucan] 02/26/2020 12:00:00 AM RUPALI MichaelW1 ([facility]) Fluconazole 150 MG Oral Tablet [Diflucan] 02/26/2020 12:00:00 AM RUPALI Barahona eCW1 ([facility])
--- NOTE | 2020-04-29 16:58 | HPEPDOC ---
General Date of Admission 04/29/20 Date of Service: Apr 29, 2020 Chief Complaint The patient is a 84-year-old female admitted with a reason for visit of Fever, Sob. Source: Patient Exam Limitations: No limitations Timing/Duration: Day(s) Severity: Moderate Associated Symptoms: Shortness of breath History of Present Illness Patient is 84 years old female with past medical history of nephrolithiasis, multiple sclerosis, hypertension, hyperlipidemia, right breast cancer status post mastectomy, history of DVT of right leg presented hospital with progressive weakness and history of multiple falls. Patient stated that for past few days she has been having increased weakness associated with shortness of breath. In ER patient was found to have leukocytosis of 14, ferritin 603, d-dimer 1046. COVID [address] showed Bilateral areas of airspace disease and ill-defined atelectasis consistent with COVID-19 pulmonary disease/viral pneumonia. Home Medications Scheduled Amlodipine Besylate (Amlodipine Besylate) 2.5 Mg Tablet, 2.5 MG PO DAILY, (Reported) Apixaban (Eliquis) 5 Mg Tablet, 5 MG PO BID, (Reported) Cholecalciferol (Vitamin D3) (Vitamin D3) 1,000 Unit Tablet, 1,000 UNITS PO DAILY, (Reported) Dorzolamide/Timolol/Pf (Cosopt Pf Eye Drops) 1 Each Droperette, 1 DROP OU BID, (Reported) Hydrochlorothiazide (Hydrochlorothiazide) 25 Mg Tablet, 25 MG PO DAILY, (Reported) L.acidoph/L.bulg/B.bif/S.therm (Bacid Caplet) 1 Each Tablet, 1 TAB PO QID, (Reported) Losartan Potassium (Losartan Potassium) 100 Mg Tablet, 100 MG PO QHS, (Reported) Nitrofurantoin Monohyd/M-Cryst (Nitrofurantoin [place]-Mcr 100 mg) 100 Mg Capsule, 100 MG PO DAILY, (Reported) Oxybutynin Chloride (Oxybutynin Chloride) 5 Mg Tablet, 5 MG PO BID, (Reported) Potassium Chloride (Potassium Chloride) 10 Meq Tablet.er, 10 MEQ PO BID, (Reported) Pravastatin Sodium (Pravastatin Sodium) 20 Mg Tablet, 20 MG PO QHS, (Reported) Travoprost (Travatan Z) 0.004% 2.5ML Drops, 1 DROP OU QHS, (Reported) Allergies Coded Allergies: No Known Allergies (Verified , 02/13/20) Past Medical History Medical History MS Neurogenic bladder UTI with infected Nephrolithiasis. Hx of E.Coli Sepsis Rhabdomyolysis Cholelithiasis. Hydronephrosis Hypertension. HLD. Osteoporosis. History right breast cancer status post mastectomy, chemotherapy, radiation Hx of DVT right leg Surgical History Mastectomy right breast carcinoma Hysterectomy Tonsillectomy Appendectomy Ventral hernia repair Family History Father 79 cardiac issues, Mother 79 Breast Cancer Social History * Smoker: Denies Alcohol: Denies Drugs: denies A-FIB/CHADSVASC A-FIB History Current/History of A-Fib/PAF?: No Current PO Anticoag Therapy: No Review of Systems Constitutional: Reports: Fever, Malaise, Weakness; Denies: Chills Eyes: Denies: Pain, Vision change ENT: Denies: Head Aches Skin: Denies: Rash, Lesions Pulmonary: Reports: Dyspnea Cardiovascular: Denies: Chest Pain, Palpitations Gastrointestinal: Denies: Nausea, Vomiting Genitourinary: Denies: Dysuria Hematologic: Denies: Bruising Endocrine: Denies: Polydipsia Musculoskeletal: Denies: Neck Pain Neurological: Denies: Weakness Psych: Reports: Mood Normal Physical Examination General Exam: Positive: Alert, Cooperative Eye Exam: Positive: PERRLA ENT Exam: Positive: Atraumatic Neck Exam: Positive: Supple; Negative: JVD Chest Exam: Positive: Diminished Heart Exam: Positive: Rate Normal Telemetry: Positive: No significant arrhythmia Abdomen Exam: Positive: Normal bowel sounds Extremity Exam: Negative: Clubbing, Cyanosis Skin Exam: Positive: Nl turgor and temperature Neuro Exam: Positive: Normal Gait Psych Exam: Positive: Mental status NL Vital Signs Vital Signs Date Time Temp Pulse Resp B/P (MAP) Pulse Ox O2 Delivery O2 Flow Rate FiO2 04/29/20 16:11 98.9 04/29/20 13:05 21 90 Room Air 04/29/20 13:05 90 04/29/20 12:56 100 95/69 (78) Laboratory Data Labs 24H Laboratory Tests 2 04/29/20 13:03: SARS Antigen (LFIA) POSITIVEH 04/29/20 13:11: Immature Granulocyte % (Auto) 0.5, Neutrophils (%) (Auto) 87.4H, Lymphocytes (%) (Auto) 10.1L, Monocytes (%) (Auto) 1.9, Eosinophils (%) (Auto) 0.0, Basophils (%) (Auto) 0.1, Neutrophils # (Auto) 12.2H, Lymphocytes # (Auto) 1.4L, Monocytes # (Auto) 0.3, Eosinophils # (Auto) 0.0, Basophils # (Auto) 0.0, Nucleated Red Blood Cells % (auto) 0.0, Prothrombin Time 14.9H, Prothromb Time International Ratio 1.14, Activated Partial Thromboplast Time 62.9H, Fibrinogen 608H, D-Dimer, Quantitative 1046.85H, Anion Gap 5L, Glomerular Filtration Rate 56.9, Lactic Acid Level 1.4, Calcium Level 9.2, Magnesium Level 1.7L, Ferritin 603H, Total Bilirubin 0.9, Aspartate Amino Transf (AST/SGOT) 23, Alanine Aminotransferase (ALT/SGPT) 17, Alkaline Phosphatase 85, Lactate Dehydrogenase 236, Total Creatine Kinase 63, Creatine Kinase MB < 1.0, Creatine Kinase MB Relative Index 1.59, Troponin I 0.02, C-Reactive Protein, Quantitative 19.50H, Total Protein 6.4, Albumin 2.7L, Albumin/Globulin Ratio 0.7L, Procalcitonin 0.54 04/29/20 15:28: Urine Color YELLOW, Urine Appearance HAZY, Urine pH 5.0, Urine Specific [place] 1.019, Urine Protein 1+H, Urine Glucose (UA) NEGATIVE, Urine Ketones NEGATIVE, Urine Blood 2+H, Urine Nitrite NEGATIVE, Urine Bilirubin NEGATIVE, Urine Urobilinogen 0.2, Urine Leukocyte Esterase TRACEH, Urine WBC (Auto) 18H, Urine RBC (Auto) 3, Urine Hyaline Casts (Auto) 0, Urine Bacteria (Auto) 1+H, Urine Squamous Epithelial Cells 0, Urine Mucus (Auto) SMALL, Urine Sperm (Auto) CBC/BMP Laboratory Tests 04/29/20 13:11 Microbiology Microbiology 04/29/20 Urine Culture, Received Pending 04/29/20 Blood Culture, Received Pending 04/29/20 Blood Culture, Received Pending Assessment/Plan Patient is 84 years old female with past medical history of nephrolithiasis, multiple sclerosis, hypertension, hyperlipidemia, right breast cancer status post mastectomy, history of DVT of right leg presented hospital with progressive weakness and history of multiple falls. Patient stated that for past few days she has been having increased weakness associated with shortness of breath. In ER patient was found to have leukocytosis of 14, ferritin 603, d-dimer 1046. COVID [address] showed Bilateral areas of airspace disease and ill-defined atelectasis consistent with COVID-19 pulmonary disease/viral pneumonia. Problems (1) Sepsis Status: Acute Problem Text: Patient has tachypnea, tachycardia and leukocytosis of 14 CT showed bilateral pneumonia IV fluid Remdesevir, dexamethasone Procalcitonin 0.5, started levofloxacin IV Incentive spirometry Albuterol when necessary anticoagulation With Eliquis (2) Pneumonia due to COVID-19 virus Status: Acute Problem Text: See above (3) Fever Status: Acute Problem Text: See above (4) Dyspnea Status: Acute Problem Text: See above (5) Multiple sclerosis Status: Chronic Problem Text: Follow-up with neurologist in the outpatient settings Plan / VTE VTE Prophylaxis Ordered?: Yes GIULIA NG DO Apr 29, 2020 16:57
[2020-04-29] MEDS: LevoFLOXacin IV 750 MG in IV 1 EA IV SCH (17:31)
[2020-04-29] MEDS: dexameTHASONE 20MG/5ML VIAL (J1100 PER 1MG) IV SCH (17:31)
[2020-04-29] MEDS: NS 1,000 ML IV SCH (17:33)
[2020-04-29 19:00] VITALS: BP 130/61
[2020-04-29] MEDS ORDERED: REMDESIVIR 200 MG in NS 250 ML IV ONE (20:00)
[2020-04-29] MEDS: APIXABAN 5 MG TAB (ELIQUIS) PO SCH (20:37)
[2020-04-29] MEDS: PRAVASTATIN 20 MG TAB PO SCH (20:37)
[2020-04-29] MEDS: oxyBUTYnin 5 MG TAB PO SCH (20:37)
[2020-04-29] MEDS: LATANOPROST 0.005% OPHTH SOLN 2.5 ML OU SCH (20:37)
[2020-04-29] MEDS: POTASSIUM CHLORIDE 10 MEQ SR TABLET PO SCH (20:37)
[2020-04-29] MEDS: LOSARTAN 50MG TABLET PO SCH (20:37)
[2020-04-29] MEDS ORDERED: SODIUM CHLORIDE 0.9% INJ 10 ML SYR IV ONE (22:00)
[2020-04-30] MEDS: NS 1,000 ML IV SCH ×3 (03:00→21:28)
[2020-04-30 04:00] VITALS: BP 128/72
[2020-04-30 07:08] LABS: HEMATOCRIT 37.7 % (36.0-47.0); HEMOGLOBIN 11.8 g/dl (12.0-15.5); LYMPH # 1.1 10^3/uL (1.5-5.0); LYMPH % 8.5 % (24.0-44.0); MEAN CORPUSCULAR HEMOGLOBIN 29.9 pg (27.0-33.0); MEAN CORPUSCULAR HGB CONC 31.3 g/dl (32.0-36.5); MEAN CORPUSCULAR VOLUME 95.7 fl (80.0-96.0); MONO # 0.1 10^3/uL (0.0-0.8); MONO % 0.9 % (0.0-5.0); NEUTROPHILS # 11.3 10^3/uL (1.5-8.5); NEUTROPHILS % 90.1 % (36.0-66.0); PLATELET COUNT, AUTOMATED 146 10^3/uL (150-450); RED BLOOD COUNT 3.94 10^6/uL (4.00-5.40); WHITE BLOOD COUNT 12.5 10^3/uL (4.0-10.0)
[2020-04-30 07:36] LABS: ALBUMIN 2.2 GM/DL (3.2-5.2); ALT/SGPT 14 U/L (12-78); BILIRUBIN,DIRECT 0.1 MG/DL (0.0-0.2); BILIRUBIN,TOTAL 0.4 MG/DL (0.2-1.0); BLOOD UREA NITROGEN 28 MG/DL (7-18); CALCIUM LEVEL 8.9 MG/DL (8.8-10.2); CARBON DIOXIDE LEVEL 24 MEQ/L (21-32); CHLORIDE LEVEL 107 MEQ/L (98-107); CREATININE FOR GFR 0.74 MG/DL (0.55-1.30); GLOMERULAR FILTRATION RATE > 60.0 (>32); GLUCOSE, FASTING 128 MG/DL (70-100); MAGNESIUM LEVEL 1.8 MG/DL (1.8-2.4); POTASSIUM SERUM 4.1 MEQ/L (3.5-5.1); SODIUM LEVEL 139 MEQ/L (136-145); TOTAL PROTEIN 6.4 GM/DL (6.4-8.2)
[2020-04-30 08:06] VITALS: BP 129/59
[2020-04-30] MEDS: dexameTHASONE 20MG/5ML VIAL (J1100 PER 1MG) IV SCH (08:18)
[2020-04-30] MEDS: oxyBUTYnin 5 MG TAB PO SCH ×2 (08:19→21:12)
[2020-04-30] MEDS: POTASSIUM CHLORIDE 10 MEQ SR TABLET PO SCH ×2 (08:19→21:12)
[2020-04-30] MEDS: APIXABAN 5 MG TAB (ELIQUIS) PO SCH ×2 (08:19→21:12)
[2020-04-30] MEDS: NYSTATIN 100,000 UNITS/GM TOPICAL PWD 15 GM TOP SCH (08:19)
[2020-04-30] MEDS: NITROFURANTOIN (MACROBID) 100 MG CAP PO SCH (08:20)
--- NOTE | 2020-04-30 12:16 | IPNPDOC ---
Date Seen The patient was seen on 04/30/20. Progress Note SUBJECTIVE: Patient was seen and examined at bedside this morning. She is doing well, in no acute events overnight. She is alert and oriented 3, sitting upright in bed and appears comfortable. She was saturating at 98% on 2L NC. She does report to me that she has had several falls at home. Is agreeable to physical therapy and occupational therapy evaluation. OBJECTIVE PHYSICAL EXAMINATION: VITAL SIGNS: please see below General: NAD, comfortable HEENT: PERRLA, EOMI, sclerae clear Neck: supple, normal ROM, no JVD Respiratory: lungs CTAB, no wheeze, no rales, no crackles CVS: RRR, normal S1, S2, no murmurs Abdo: soft, no masses, no hepatosplenomegaly, BS+, no rebound tenderness Extremities: no edema, pulses 2+ MSK: no joint deformities, normal ROM Neuro: no focal neuro deficits, moving all 4 extremities, CN2-12 intact. Strength 5/5 in all 4 extremities. No nystagmus. Psych: calm, cooperative, AAO x 3 LABORATORY DATA, IMAGING STUDIES, MICROBIOLOGY: Please see below. DVT prophylaxis ordered?: continue AC with eliquis. SCDs. TEDs. ASSESSMENT AND PLAN: 84 yo F with a hx of DVT (R leg), HTN, HLD, R breast ca s/p mastectomy, MS, nephrolithiasis, presenting with SOB and weakness. COVID-19 positive on 04/30/20 (symptoms likely began on 04/27/20). Admitted with sepsis 2/2 covid-19 and possible superimposed pneumonia. PROBLEMS: Sepsis - VSS, LA 1.4 - to follow up with on blood and urine cultures - IV levaquin - procal elevated at 0.52. Covid-19 pneumonia - requires NC 2L, saturating appropriately - remdesivir Day 2 - Dexamethasone Day 2 - levaquin day 2 - combivent inhaler prn - incentive spirometer, acapella Chronic UTI? - takes macrobid outpatient - will hold as receiving levaquin RLE DVT - continue with eliquis MS - stable, outpatient neurology follow up HTN - c/w losartan hx of fall - PT/OT ordered - may require placement VS, I&O, 24H, Fishbone Vital Signs/I&O Vital Signs Date Time Temp Pulse Resp B/P (MAP) Pulse Ox O2 Delivery O2 Flow Rate FiO2 04/30/20 08:20 52 129/59 04/30/20 08:06 97.2 17 98 Nasal Cannula 2.0 04/29/20 13:05 90 I&O- Last 24 Hours up to 6 AM 04/30/20 06:00 Intake Total 2210 ml Output Total 0 ml Balance 2210 ml Laboratory Data 24H LABS Laboratory Tests 2 04/29/20 13:03: SARS Antigen (LFIA) POSITIVEH 04/29/20 13:11: Immature Granulocyte % (Auto) 0.5, Neutrophils (%) (Auto) 87.4H, Lymphocytes (%) (Auto) 10.1L, Monocytes (%) (Auto) 1.9, Eosinophils (%) (Auto) 0.0, Basophils (%) (Auto) 0.1, Neutrophils # (Auto) 12.2H, Lymphocytes # (Auto) 1.4L, Monocytes # (Auto) 0.3, Eosinophils # (Auto) 0.0, Basophils # (Auto) 0.0, Nucleated Red Blood Cells % (auto) 0.0, Prothrombin Time 14.9H, Prothromb Time International Ratio 1.14, Activated Partial Thromboplast Time 62.9H, Fibrinogen 608H, D-Dimer, Quantitative 1046.85H, Anion Gap 5L, Glomerular Filtration Rate 56.9, Lactic Acid Level 1.4, Calcium Level 9.2, Magnesium Level 1.7L, Ferritin 603H, Total Bilirubin 0.9, Aspartate Amino Transf (AST/SGOT) 23, Alanine Aminotransferase (ALT/SGPT) 17, Alkaline Phosphatase 85, Lactate Dehydrogenase 236, Total Creatine Kinase 63, Creatine Kinase MB < 1.0, Creatine Kinase MB Relative Index 1.59, Troponin I 0.02, C-Reactive Protein, Quantitative 19.50H, Total Protein 6.4, Albumin 2.7L, Albumin/Globulin Ratio 0.7L, Procalcitonin 0.54 04/29/20 15:28: Urine Color YELLOW, Urine Appearance HAZY, Urine pH 5.0, Urine Specific [place] 1.019, Urine Protein 1+H, Urine Glucose (UA) NEGATIVE, Urine Ketones NEGATIVE, Urine Blood 2+H, Urine Nitrite NEGATIVE, Urine Bilirubin NEGATIVE, Urine Urobilinogen 0.2, Urine Leukocyte Esterase TRACEH, Urine WBC (Auto) 18H, Urine RBC (Auto) 3, Urine Hyaline Casts (Auto) 0, Urine Bacteria (Auto) 1+H, Urine Squamous Epithelial Cells 0, Urine Mucus (Auto) SMALL, Urine Sperm (Auto) 04/29/20 17:25: Procalcitonin 0.52 04/30/20 06:45: Immature Granulocyte % (Auto) 0.5, Neutrophils (%) (Auto) 90.1H, Lymphocytes (%) (Auto) 8.5L, Monocytes (%) (Auto) 0.9, Eosinophils (%) (Auto) 0.0, Basophils (%) (Auto) 0.0, Neutrophils # (Auto) 11.3H, Lymphocytes # (Auto) 1.1L, Monocytes # (Auto) 0.1, Eosinophils # (Auto) 0.0, Basophils # (Auto) 0.0, Nucleated Red Blood Cells % (auto) 0.0, Anion Gap 8, Glomerular Filtration Rate > 60.0, Calcium Level 8.9, Magnesium Level 1.8, Total Bilirubin 0.4#, Direct Bilirubin 0.1, Aspartate Amino Transf (AST/SGOT) 23, Alanine Aminotransferase (ALT/SGPT) 14, Alkaline Phosphatase 75, Total Protein 6.4, Albumin 2.2L, Albumin/Globulin Ratio 0.5L CBC/BMP Laboratory Tests 04/29/20 13:11 04/30/20 06:45 Microbiology Microbiology 04/29/20 Urine Culture, Received Pending 04/29/20 Blood Culture, Received Pending 04/29/20 Blood Culture, Received Pending CJ ERVIN MD Apr 30, 2020 12:16
[2020-04-30 20:00] VITALS: BP 121/70; O2SAT 97
[2020-04-30] MEDS: LOSARTAN 50MG TABLET PO SCH (21:12)
[2020-04-30] MEDS: REMDESIVIR 100 MG in NS 250 ML IV SCH (21:13)
[2020-04-30] MEDS: PRAVASTATIN 20 MG TAB PO SCH (21:13)
[2020-04-30] MEDS: LATANOPROST 0.005% OPHTH SOLN 2.5 ML OU SCH (21:13)
[2020-04-30] MEDS: SODIUM CHLORIDE 0.9% INJ 10 ML SYR IV SCH (21:14)
[2020-05-01] VITALS: O2SAT 95
[2020-05-01 04:00] VITALS: O2SAT 95
[2020-05-01 07:30] LABS: BASO % 0.1 % (0.0-1.0); HEMATOCRIT 35.3 % (36.0-47.0); HEMOGLOBIN 10.9 g/dl (12.0-15.5); LYMPH # 1.1 10^3/uL (1.5-5.0); LYMPH % 12.3 % (24.0-44.0); MEAN CORPUSCULAR HEMOGLOBIN 29.8 pg (27.0-33.0); MEAN CORPUSCULAR HGB CONC 30.9 g/dl (32.0-36.5); MEAN CORPUSCULAR VOLUME 96.4 fl (80.0-96.0); MONO # 0.4 10^3/uL (0.0-0.8); MONO % 4.1 % (0.0-5.0); NEUTROPHILS # 7.1 10^3/uL (1.5-8.5); NEUTROPHILS % 83.1 % (36.0-66.0); PLATELET COUNT, AUTOMATED 227 10^3/uL (150-450); RED BLOOD COUNT 3.66 10^6/uL (4.00-5.40); WHITE BLOOD COUNT 8.5 10^3/uL (4.0-10.0)
[2020-05-01 07:40] LABS: INR 1.66
[2020-05-01 07:42] LABS: PARTIAL THROMBOPLASTIN TIME 67.7 SECONDS (24.2-38.5)
[2020-05-01 07:55] LABS: ALBUMIN 2.2 GM/DL (3.2-5.2); ALT/SGPT 15 U/L (12-78); BILIRUBIN,DIRECT 0.2 MG/DL (0.0-0.2); BILIRUBIN,TOTAL 0.4 MG/DL (0.2-1.0); BLOOD UREA NITROGEN 25 MG/DL (7-18); CALCIUM LEVEL 8.8 MG/DL (8.8-10.2); CARBON DIOXIDE LEVEL 27 MEQ/L (21-32); CHLORIDE LEVEL 109 MEQ/L (98-107); CPK CREATINE PHOSPHOKINASE 18 U/L (26-192); FERRITIN 923 NG/ML (8-252); GLOMERULAR FILTRATION RATE > 60.0 (>32); GLUCOSE, FASTING 136 MG/DL (70-100); LDH LACTATE DEHYDROGENASE 199 U/L (84-246); MAGNESIUM LEVEL 1.8 MG/DL (1.8-2.4); NT-PRO BNP 1830 PG/ML (<450); SODIUM LEVEL 141 MEQ/L (136-145); TOTAL PROTEIN 5.5 GM/DL (6.4-8.2); TROPONIN I < 0.02 NG/ML (< 0.10)
[2020-05-01 08:00] VITALS: O2SAT 95
[2020-05-01] MEDS: NITROFURANTOIN (MACROBID) 100 MG CAP PO SCH (09:37)
[2020-05-01] MEDS: POTASSIUM CHLORIDE 10 MEQ SR TABLET PO SCH ×2 (09:40→21:30)
[2020-05-01] MEDS: APIXABAN 5 MG TAB (ELIQUIS) PO SCH ×2 (09:40→21:29)
[2020-05-01] MEDS: oxyBUTYnin 5 MG TAB PO SCH ×2 (09:40→21:30)
[2020-05-01] MEDS: dexameTHASONE 20MG/5ML VIAL (J1100 PER 1MG) IV SCH (09:40)
[2020-05-01] MEDS: NS 1,000 ML IV SCH ×2 (09:41→17:52)
[2020-05-01] MEDS: NYSTATIN 100,000 UNITS/GM TOPICAL PWD 15 GM TOP SCH (09:52)
[2020-05-01 12:00] VITALS: BP 136/64; O2SAT 97
--- NOTE | 2020-05-01 13:08 | IPNPDOC ---
Date Seen The patient was seen on 05/01/20. Progress Note SUBJECTIVE: Patient was seen and examined at bedside this morning. She is doing well, in no acute events overnight. She is alert and oriented 3, sitting upright in bed and appears comfortable. She was saturating at 98% on 2L NC. She does report to me that she has had several falls at home. Is agreeable to physical therapy and occupational therapy evaluation. OBJECTIVE PHYSICAL EXAMINATION: VITAL SIGNS: please see below General: NAD, comfortable HEENT: PERRLA, EOMI, sclerae clear Neck: supple, normal ROM, no JVD Respiratory: lungs CTAB, no wheeze, no rales, no crackles CVS: RRR, normal S1, S2, no murmurs Abdo: soft, no masses, no hepatosplenomegaly, BS+, no rebound tenderness Extremities: no edema, pulses 2+ MSK: no joint deformities, normal ROM Neuro: no focal neuro deficits, moving all 4 extremities, CN2-12 intact. Strength 5/5 in all 4 extremities. No nystagmus. Psych: calm, cooperative, AAO x 3 LABORATORY DATA, IMAGING STUDIES, MICROBIOLOGY: Please see below. DVT prophylaxis ordered?: continue AC with eliquis. SCDs. TEDs. ASSESSMENT AND PLAN: 84 yo F with a hx of DVT (R leg), HTN, HLD, R breast ca s/p mastectomy, MS, nephrolithiasis, presenting with SOB and weakness. COVID-19 positive on 04/30/20 (symptoms likely began on 04/27/20). Admitted with sepsis 2/2 covid-19 and possible superimposed pneumonia. PROBLEMS: Sepsis - VSS, LA 1.4 - to follow up with on blood and urine cultures - IV levaquin - procal elevated at 0.52. Covid-19 pneumonia - requires NC 2L, saturating appropriately - remdesivir Day 3 - Dexamethasone Day 3 - levaquin day 3 - combivent inhaler prn - incentive spirometer, acapella Anemia - Hgb downtrended from 12.3 to 10.9 - possibly dilutional as patient had received IVF for sepsis on admission - check fecal occult blood Chronic UTI? - takes macrobid outpatient - will hold as receiving levaquin RLE DVT - continue with eliquis MS - stable, outpatient neurology follow up HTN - c/w losartan hx of fall - PT/OT recommending rehab VS, I&O, 24H, Fishboncarolyn Vital Signs/I&O Vital Signs Date Time Temp Pulse Resp B/P (MAP) Pulse Ox O2 Delivery O2 Flow Rate FiO2 05/01/20 09:40 94 136/67 05/01/20 04:00 95 Nasal Cannula 2.0 04/30/20 20:00 97.6 18 04/29/20 13:05 90 I&O- Last 24 Hours up to 6 AM 05/01/20 06:00 Intake Total 780 ml Output Total 0 ml Balance 780 ml Laboratory Data 24H LABS Laboratory Tests 2 05/01/20 07:13: Immature Granulocyte % (Auto) 0.4, Neutrophils (%) (Auto) 83.1H, Lymphocytes (%) (Auto) 12.3L, Monocytes (%) (Auto) 4.1, Eosinophils (%) (Auto) 0.0, Basophils (%) (Auto) 0.1, Neutrophils # (Auto) 7.1, Lymphocytes # (Auto) 1.1L, Monocytes # (Auto) 0.4, Eosinophils # (Auto) 0.0, Basophils # (Auto) 0.0, Nucleated Red Blood Cells % (auto) 0.0, Prothrombin Time 20.0H, Prothromb Time International Ratio 1.66, Activated Partial Thromboplast Time 67.7H, Fibrinogen 534H, Anion Gap 5L, Glomerular Filtration Rate > 60.0, Calcium Level 8.8, Magnesium Level 1.8, Ferritin 923H, Total Bilirubin 0.4, Direct Bilirubin 0.2, Aspartate Amino Transf (AST/SGOT) 19, Alanine Aminotransferase (ALT/SGPT) 15, Alkaline Phosphatase 68, Lactate Dehydrogenase 199, Total Creatine Kinase 18L, Troponin I < 0.02, XS-[id number]-Type Natriuretic Peptide 1830H, Total Protein 5.5L, Albumin 2.2L, Albumin/Globulin Ratio 0.7L, Procalcitonin 0.21 CBC/BMP Laboratory Tests 05/01/20 07:13 Microbiology Microbiology 04/29/20 Urine Culture - Final, Complete Lactobacillus Species 04/29/20 Blood Culture - Preliminary, Resulted No growth after 24 hours . All specim... 04/29/20 Blood Culture - Preliminary, Resulted No growth after 24 hours . All specim... CJ ERVIN MD May 01, 2020 13:08
[2020-05-01 16:00] VITALS: O2SAT 96
[2020-05-01] MEDS: LevoFLOXacin IV 750 MG in IV 1 EA IV SCH (17:52)
[2020-05-01 21:20] VITALS: BP 154/75
[2020-05-01] MEDS: REMDESIVIR 100 MG in NS 250 ML IV SCH (21:24)
[2020-05-01] MEDS: LOSARTAN 50MG TABLET PO SCH (21:28)
[2020-05-01] MEDS: PRAVASTATIN 20 MG TAB PO SCH (21:29)
[2020-05-01] MEDS: SODIUM CHLORIDE 0.9% INJ 10 ML SYR IV SCH (21:30)
[2020-05-01] MEDS: LATANOPROST 0.005% OPHTH SOLN 2.5 ML OU SCH (21:36)
[2020-05-02 04:00] VITALS: BP 169/72
[2020-05-02] MEDS: NS 1,000 ML IV SCH ×2 (06:03→15:00)
[2020-05-02 06:26] LABS: BASO % 0.1 % (0.0-1.0); HEMATOCRIT 34.5 % (36.0-47.0); HEMOGLOBIN 10.7 g/dl (12.0-15.5); LYMPH # 1.1 10^3/uL (1.5-5.0); LYMPH % 13.5 % (24.0-44.0); MEAN CORPUSCULAR HEMOGLOBIN 30.1 pg (27.0-33.0); MEAN CORPUSCULAR VOLUME 96.9 fl (80.0-96.0); MONO # 0.5 10^3/uL (0.0-0.8); MONO % 5.4 % (0.0-5.0); NEUTROPHILS # 6.7 10^3/uL (1.5-8.5); NEUTROPHILS % 80.3 % (36.0-66.0); PLATELET COUNT, AUTOMATED 241 10^3/uL (150-450); RED BLOOD COUNT 3.56 10^6/uL (4.00-5.40); WHITE BLOOD COUNT 8.4 10^3/uL (4.0-10.0)
[2020-05-02 06:46] LABS: BLOOD UREA NITROGEN 19 MG/DL (7-18); CARBON DIOXIDE LEVEL 25 MEQ/L (21-32); CHLORIDE LEVEL 107 MEQ/L (98-107); CREATININE FOR GFR 0.53 MG/DL (0.55-1.30); GLOMERULAR FILTRATION RATE > 60.0 (>32); GLUCOSE, FASTING 125 MG/DL (70-100); MAGNESIUM LEVEL 1.7 MG/DL (1.8-2.4); POTASSIUM SERUM 4.4 MEQ/L (3.5-5.1); SODIUM LEVEL 141 MEQ/L (136-145)
[2020-05-02 07:52] VITALS: BP 128/88
[2020-05-02 09:35] VITALS: BP 149/68
[2020-05-02] MEDS: oxyBUTYnin 5 MG TAB PO SCH ×2 (10:06→19:54)
[2020-05-02] MEDS: MAG SULF 1GM/100ML (MAG RUN) 1 GM in IV 1 EA IV SCH ×2 (10:06→11:48)
[2020-05-02] MEDS: dexameTHASONE 20MG/5ML VIAL (J1100 PER 1MG) IV SCH (10:06)
[2020-05-02] MEDS: POTASSIUM CHLORIDE 10 MEQ SR TABLET PO SCH ×2 (10:07→19:54)
[2020-05-02] MEDS: NYSTATIN 100,000 UNITS/GM TOPICAL PWD 15 GM TOP SCH (10:07)
[2020-05-02] MEDS: APIXABAN 5 MG TAB (ELIQUIS) PO SCH ×2 (10:07→19:55)
--- NOTE | 2020-05-02 10:57 | IPNPDOC ---
Date Seen The patient was seen on 05/02/20. Progress Note SUBJECTIVE: Patient was seen and examined at bedside this morning. She is doing well, in no acute events overnight. She is alert and oriented 3, sitting upright in bed and appears comfortable. She was saturating at 98% on 2L NC. Is agreeable to physical therapy and occupational therapy evaluation. OBJECTIVE PHYSICAL EXAMINATION: VITAL SIGNS: please see below General: NAD, comfortable HEENT: PERRLA, EOMI, sclerae clear Neck: supple, normal ROM, no JVD Respiratory: lungs CTAB, no wheeze, no rales, no crackles CVS: RRR, normal S1, S2, no murmurs Abdo: soft, no masses, no hepatosplenomegaly, BS+, no rebound tenderness Extremities: no edema, pulses 2+ MSK: no joint deformities, normal ROM Neuro: no focal neuro deficits, moving all 4 extremities, CN2-12 intact. Strength 5/5 in all 4 extremities. No nystagmus. Psych: calm, cooperative, AAO x 3 LABORATORY DATA, IMAGING STUDIES, MICROBIOLOGY: Please see below. DVT prophylaxis ordered?: continue AC with eliquis. SCDs. TEDs. ASSESSMENT AND PLAN: 84 yo F with a hx of DVT (R leg), HTN, HLD, R breast ca s/p mastectomy, MS, nephrolithiasis, presenting with SOB and weakness. COVID-19 positive on 04/30/20 (symptoms likely began on 04/27/20). Admitted with sepsis 2/2 covid-19 and possible superimposed pneumonia. PROBLEMS: Sepsis - VSS, LA 1.4 - IV levaquin switch to PO - check EKG for QTc - procal elevated at 0.52. - blood cx neg prelim at 48 hrs Covid-19 pneumonia - requires NC 2L, saturating appropriately - remdesivir Day 4 - Dexamethasone Day 4 - levaquin day 4 - combivent inhaler prn - incentive spirometer, acapella Anemia - Hgb downtrended from 12.3 to 10.9 - possibly dilutional as patient had received IVF for sepsis on admission - check fecal occult blood Chronic UTI? - takes macrobid outpatient - will hold as receiving levaquin - urine cx + lactobacillus species, but patient is asymptomatic RLE DVT - continue with eliquis MS - stable, outpatient neurology follow up HTN - c/w losartan hx of fall - PT/OT recommending rehab VS, I&O, 24H, Fishbone Vital Signs/I&O Vital Signs Date Time Temp Pulse Resp B/P (MAP) Pulse Ox O2 Delivery O2 Flow Rate FiO2 05/02/20 10:07 72 149/68 05/02/20 09:35 96.4 18 96 High Flow Cannula 2.0 04/29/20 13:05 90 I&O- Last 24 Hours up to 6 AM 05/02/20 06:00 Intake Total 3210 ml Output Total 350 ml Balance 2860 ml Laboratory Data 24H LABS Laboratory Tests 2 05/02/20 06:02: Immature Granulocyte % (Auto) 0.7, Neutrophils (%) (Auto) 80.3H, Lymphocytes (%) (Auto) 13.5L, Monocytes (%) (Auto) 5.4H, Eosinophils (%) (Auto) 0.0, Basophils (%) (Auto) 0.1, Neutrophils # (Auto) 6.7, Lymphocytes # (Auto) 1.1L, Monocytes # (Auto) 0.5, Eosinophils # (Auto) 0.0, Basophils # (Auto) 0.0, Nucleated Red Blood Cells % (auto) 0.0, Anion Gap 9, Glomerular Filtration Rate > 60.0, Calcium Level 8.0L, Magnesium Level 1.7L CBC/BMP Laboratory Tests 05/02/20 06:02 Microbiology Microbiology 04/29/20 Urine Culture - Final, Complete Lactobacillus Species 04/29/20 Blood Culture - Preliminary, Resulted No Growth after 48 hours. All Specime... 04/29/20 Blood Culture - Preliminary, Resulted No Growth after 48 hours. All Specime... CJ ERVIN MD May 02, 2020 10:57
[2020-05-02 15:01] VITALS: BP 124/67
[2020-05-02 19:50] VITALS: BP 139/69
[2020-05-02] MEDS: REMDESIVIR 100 MG in NS 250 ML IV SCH (19:52)
[2020-05-02] MEDS: LATANOPROST 0.005% OPHTH SOLN 2.5 ML OU SCH (19:53)
[2020-05-02] MEDS: LOSARTAN 50MG TABLET PO SCH (19:54)
[2020-05-02] MEDS: PRAVASTATIN 20 MG TAB PO SCH (19:54)
[2020-05-02 20:00] VITALS: O2SAT 97
[2020-05-02] MEDS: SODIUM CHLORIDE 0.9% INJ 10 ML SYR IV SCH (21:10)
[2020-05-03] VITALS (7 sets, daily range): BP systolic 130–163; BP diastolic 64–82; O2SAT 95–96
[2020-05-03] MEDS: NS 1,000 ML IV SCH (05:19)
[2020-05-03] MEDS ORDERED: LevoFLOXacin 750 MG TABLET PO SCH (06:00)
[2020-05-03] MEDS: oxyBUTYnin 5 MG TAB PO SCH ×2 (09:37→19:47)
[2020-05-03] MEDS: POTASSIUM CHLORIDE 10 MEQ SR TABLET PO SCH ×2 (09:37→19:47)
[2020-05-03] MEDS: dexameTHASONE 20MG/5ML VIAL (J1100 PER 1MG) IV SCH (09:38)
[2020-05-03] MEDS: NYSTATIN 100,000 UNITS/GM TOPICAL PWD 15 GM TOP SCH (09:38)
[2020-05-03] MEDS: APIXABAN 5 MG TAB (ELIQUIS) PO SCH ×2 (09:38→19:46)
[2020-05-03 10:12] LABS: BASO % 0.1 % (0.0-1.0); EOS % 0.1 % (0.0-3.0); HEMATOCRIT 36.8 % (36.0-47.0); HEMOGLOBIN 11.5 g/dl (12.0-15.5); LYMPH # 1.1 10^3/uL (1.5-5.0); MEAN CORPUSCULAR HEMOGLOBIN 29.7 pg (27.0-33.0); MEAN CORPUSCULAR HGB CONC 31.3 g/dl (32.0-36.5); MEAN CORPUSCULAR VOLUME 95.1 fl (80.0-96.0); MONO # 0.6 10^3/uL (0.0-0.8); MONO % 6.6 % (0.0-5.0); NEUTROPHILS # 6.9 10^3/uL (1.5-8.5); NEUTROPHILS % 79.5 % (36.0-66.0); PLATELET COUNT, AUTOMATED 225 10^3/uL (150-450); RED BLOOD COUNT 3.87 10^6/uL (4.00-5.40); WHITE BLOOD COUNT 8.7 10^3/uL (4.0-10.0)
[2020-05-03 10:22] LABS: INR 1.12; PROTHROMBIN TIME 14.6 SECONDS (12.5-14.3)
[2020-05-03 10:23] LABS: PARTIAL THROMBOPLASTIN TIME 37.3 SECONDS (24.2-38.5)
[2020-05-03 10:35] LABS: ALBUMIN 2.2 GM/DL (3.2-5.2); ALT/SGPT 45 U/L (12-78); BILIRUBIN,DIRECT 0.2 MG/DL (0.0-0.2); BILIRUBIN,TOTAL 0.5 MG/DL (0.2-1.0); BLOOD UREA NITROGEN 14 MG/DL (7-18); CARBON DIOXIDE LEVEL 27 MEQ/L (21-32); CHLORIDE LEVEL 106 MEQ/L (98-107); CPK CREATINE PHOSPHOKINASE 14 U/L (26-192); FERRITIN 654 NG/ML (8-252); GLOMERULAR FILTRATION RATE > 60.0 (>32); GLUCOSE, FASTING 120 MG/DL (70-100); LDH LACTATE DEHYDROGENASE 192 U/L (84-246); MAGNESIUM LEVEL 1.9 MG/DL (1.8-2.4); NT-PRO BNP 2731 PG/ML (<450); POTASSIUM SERUM 4.2 MEQ/L (3.5-5.1); SODIUM LEVEL 141 MEQ/L (136-145); TOTAL PROTEIN 5.3 GM/DL (6.4-8.2); TROPONIN I < 0.02 NG/ML (< 0.10)
--- NOTE | 2020-05-03 12:26 | IPNPDOC ---
Subjective Date Seen The patient was seen on 05/03/20. Subjective Chief Complaint/HPI No complaints this morning. Had a good night, Her appetite is improving. Denies any sob. Objective Physical Examination General Exam: Positive: Alert, Cooperative, No Acute Distress Eye Exam: Positive: Conjunctiva & lids normal; Negative: Sclera icteric ENT Exam: Positive: Atraumatic, Mucous membr. moist/pink Neck Exam: Positive: Supple; Negative: JVD Chest Exam: Positive: Clear to auscultation, Diminished Heart Exam: Positive: Rate Normal, Regular Rhythm, Normal S1, Normal S2; Negative: Murmurs, Rubs Telemetry: Positive: No significant arrhythmia Abdomen Exam: Positive: Normal bowel sounds, Soft; Negative: Tenderness, Hepatospenomegaly Extremity Exam: Negative: Clubbing, Cyanosis Skin Exam: Positive: Nl turgor and temperature Neuro Exam: Positive: Normal Speech, Strength at 5/5 X4 ext, Normal Tone Psych Exam: Positive: Mood NL, Oriented x 3 Assessment /Plan Assessment 84 yo F with a hx of DVT (R leg), HTN, HLD, R breast ca s/p mastectomy, Multiple Sclerosis, nephrolithiasis, presented with SOB and weakness. COVID-19 positive on 04/30/20 (symptoms likely began on 04/27/20). Admitted with sepsis 04/29 covid-19 and possible superimposed bacterial pneumonia. Sepsis - Source in pneumonia. - Levaquin day 5. will Change to Augmentin to cover for urine. - procal elevated at 0.52 on admission, improving - blood cx neg prelim Covid-19 pneumonia - requires NC 2L, saturating appropriately - remdesivir Day 5 - Dexamethasone finished 5 days. - levaquin day 5, will change to augmentin to cover for Urine culture. - combivent inhaler prn - incentive spirometer, acapella Anemia - Hgb downtrended from 12.3 to 10.9 - possibly dilutional as patient had received IVF for sepsis on admission - check fecal occult blood Chronic/ recurrent UTI? - takes macrobid outpatient - will hold now - urine cx + lactobacillus species, but patient is asymptomatic - will change levaquin to Augmentin to cover for lactobacillus. RLE DVT - continue with eliquis MS - stable, outpatient neurology follow up HTN - c/w losartan hx of fall - PT/OT recommending continued rehab on discharge. Plan/VTE VTE Prophylaxis Ordered?: Yes VS, I&O, 24H, Fishbone Vital Signs/I&O Vital Signs Date Time Temp Pulse Resp B/P (MAP) Pulse Ox O2 Delivery O2 Flow Rate FiO2 05/03/20 09:38 78 142/84 05/03/20 09:00 2.0 05/03/20 05:11 98.1 18 96 Nasal Cannula 04/29/20 13:05 90 I&O- Last 24 Hours up to 6 AM 05/03/20 06:00 Intake Total 1730 ml Balance 1730 ml Laboratory Data 24H LABS Laboratory Tests 2 05/03/20 09:52: Immature Granulocyte % (Auto) 0.7, Neutrophils (%) (Auto) 79.5H, Lymphocytes (%) (Auto) 13.0L, Monocytes (%) (Auto) 6.6H, Eosinophils (%) (Auto) 0.1, Basophils (%) (Auto) 0.1, Neutrophils # (Auto) 6.9, Lymphocytes # (Auto) 1.1L, Monocytes # (Auto) 0.6, Eosinophils # (Auto) 0.0, Basophils # (Auto) 0.0, Nucleated Red Blood Cells % (auto) 0.0, Prothrombin Time 14.6H, Prothromb Time International Ratio 1.12, Activated Partial Thromboplast Time 37.3, Fibrinogen 390, Anion Gap 8, Glomerular Filtration Rate > 60.0, Calcium Level 8.0L, Magnesium Level 1.9, Ferritin 654H, Total Bilirubin 0.5, Direct Bilirubin 0.2, Aspartate Amino Transf (AST/SGOT) 34, Alanine Aminotransferase (ALT/SGPT) 45, Alkaline Phosphatase 72, Lactate Dehydrogenase 192, Total Creatine Kinase 14L, Troponin I < 0.02, JD-[id number]-Type Natriuretic Peptide 2731H, Total Protein 5.3L, Albumin 2.2L, Albumin/Globulin Ratio 0.7L CBC/BMP Laboratory Tests 05/03/20 09:52 Microbiology Microbiology 04/29/20 Urine Culture - Final, Complete Lactobacillus Species 04/29/20 Blood Culture - Preliminary, Resulted No Growth after 72 hours. All specime... 04/29/20 Blood Culture - Preliminary, Resulted No Growth after 72 hours. All specime... KATYA GARDNER MD May 03, 2020 12:26
--- NOTE | 2020-05-03 12:30 | ECGEPIP ---
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
[2020-05-03] MEDS: AUGMENTIN 875 MG TAB PO SCH ×2 (13:49→19:47)
[2020-05-03] MEDS: REMDESIVIR 100 MG in NS 250 ML IV SCH (19:46)
[2020-05-03] MEDS: LOSARTAN 50MG TABLET PO SCH (19:47)
[2020-05-03] MEDS: PRAVASTATIN 20 MG TAB PO SCH (19:47)
[2020-05-03] MEDS: LATANOPROST 0.005% OPHTH SOLN 2.5 ML OU SCH (19:48)
[2020-05-03] MEDS: SODIUM CHLORIDE 0.9% INJ 10 ML SYR IV SCH (21:34)
[2020-05-04 04:00] VITALS: O2SAT 95
[2020-05-04 05:19] VITALS: BP 161/71; O2SAT 95
[2020-05-04 06:34] VITALS: BP 172/96
[2020-05-04 08:27] LABS: BLOOD UREA NITROGEN 13 MG/DL (7-18); CALCIUM LEVEL 8.8 MG/DL (8.8-10.2); CARBON DIOXIDE LEVEL 29 MEQ/L (21-32); CHLORIDE LEVEL 101 MEQ/L (98-107); CREATININE FOR GFR 0.52 MG/DL (0.55-1.30); GLOMERULAR FILTRATION RATE > 60.0 (>32); GLUCOSE, FASTING 105 MG/DL (70-100); MAGNESIUM LEVEL 1.9 MG/DL (1.8-2.4); POTASSIUM SERUM 4.4 MEQ/L (3.5-5.1); SODIUM LEVEL 137 MEQ/L (136-145)
[2020-05-04] MEDS: oxyBUTYnin 5 MG TAB PO SCH ×2 (08:56→20:46)
[2020-05-04] MEDS: APIXABAN 5 MG TAB (ELIQUIS) PO SCH ×2 (08:56→20:46)
[2020-05-04] MEDS: AUGMENTIN 875 MG TAB PO SCH ×2 (08:56→20:46)
[2020-05-04] MEDS: NYSTATIN 100,000 UNITS/GM TOPICAL PWD 15 GM TOP SCH (08:57)
[2020-05-04] MEDS: POTASSIUM CHLORIDE 10 MEQ SR TABLET PO SCH ×2 (08:57→20:46)
[2020-05-04] MEDS ORDERED: MOM 30ML SUSPENSION UDC PO PRN (11:00)
--- NOTE | 2020-05-04 13:44 | IPNPDOC ---
Subjective Date Seen The patient was seen on 05/04/20. Subjective Chief Complaint/HPI No complaints this morning . Appetite better, still on 1 liter oxygen. Objective Physical Examination General Exam: Positive: Alert, Cooperative, No Acute Distress Eye Exam: Positive: Conjunctiva & lids normal; Negative: Sclera icteric ENT Exam: Positive: Atraumatic, Mucous membr. moist/pink Neck Exam: Positive: Supple; Negative: JVD Chest Exam: Positive: Clear to auscultation, Diminished Heart Exam: Positive: Rate Normal, Regular Rhythm, Normal S1, Normal S2; Negative: Murmurs, Rubs Telemetry: Positive: No significant arrhythmia Abdomen Exam: Positive: Normal bowel sounds, Soft; Negative: Tenderness, Hepatospenomegaly Extremity Exam: Negative: Clubbing, Cyanosis Skin Exam: Positive: Nl turgor and temperature Neuro Exam: Positive: Normal Speech, Strength at 5/5 X4 ext, Normal Tone Psych Exam: Positive: Mood NL, Oriented x 3 Assessment /Plan Assessment 84 yo F with a hx of DVT (R leg), HTN, HLD, R breast ca s/p mastectomy, Multiple Sclerosis, nephrolithiasis, presented with SOB and weakness. COVID-19 positive on 04/30/20 (symptoms likely began on 04/27/20). Admitted with sepsis 04/29 covid-19 and possible superimposed bacterial pneumonia. Sepsis - Source in pneumonia. - S/p Levaquin. Changed to Augmentin to cover for urine. - procal elevated at 0.52 on admission, improving - blood cx neg prelim Covid-19 pneumonia - requires NC 2L, saturating appropriately - remdesivir Day 5 - Dexamethasone finished 5 days. - levaquin changed to Augmentin to cover for Urine culture. - combivent inhaler prn - incentive spirometer, acapella Anemia - Hgb downtrended from 12.3 to 10.9 - possibly dilutional as patient had received IVF for sepsis on admission - check fecal occult blood Chronic/ recurrent UTI? - takes macrobid outpatient - will hold now - urine cx + lactobacillus species, but patient is asymptomatic - will change levaquin to Augmentin to cover for lactobacillus. RLE DVT - continue with eliquis MS - stable, outpatient neurology follow up HTN - c/w losartan hx of fall - PT/OT recommending continued rehab on discharge vs home with 24 x 7 care and PT/OT Plan/VTE VTE Prophylaxis Ordered?: Yes VS, I&O, 24H, Fishbone Vital Signs/I&O Vital Signs Date Time Temp Pulse Resp B/P (MAP) Pulse Ox O2 Delivery O2 Flow Rate FiO2 05/04/20 09:46 1.0 05/04/20 06:41 60 172/96 05/04/20 05:19 95 Nasal Cannula 05/04/20 05:19 98.5 18 04/29/20 13:05 90 I&O- Last 24 Hours up to 6 AM 05/04/20 06:00 Intake Total 750 ml Output Total 800 ml Balance -50 ml Laboratory Data 24H LABS Laboratory Tests 2 05/04/20 07:53: Anion Gap 7L, Glomerular Filtration Rate > 60.0, Calcium Level 8.8, Magnesium Level 1.9 CBC/BMP Laboratory Tests 05/04/20 07:53 Microbiology Microbiology 04/29/20 Urine Culture - Final, Complete Lactobacillus Species 04/29/20 Blood Culture - Preliminary, Resulted No Growth after 72 hours. All specime... 04/29/20 Blood Culture - Preliminary, Resulted No Growth after 72 hours. All specime... KATYA GARDNER MD May 04, 2020 13:44
[2020-05-04 14:00] VITALS: BP 86/58
[2020-05-04 15:15] VITALS: BP 90/52
[2020-05-04 20:00] VITALS: BP 98/60; O2SAT 98
[2020-05-04] MEDS: LOSARTAN 50MG TABLET PO SCH (20:46)
[2020-05-04] MEDS: PRAVASTATIN 20 MG TAB PO SCH (20:46)
[2020-05-04] MEDS: LATANOPROST 0.005% OPHTH SOLN 2.5 ML OU SCH (20:50)
[2020-05-05] VITALS (7 sets, daily range): BP systolic 70–109; BP diastolic 50–75; O2SAT 92–97
[2020-05-05 06:42] LABS: INR 1.3; PROTHROMBIN TIME 16.5 SECONDS (12.5-14.3)
[2020-05-05 06:43] LABS: PARTIAL THROMBOPLASTIN TIME 47.8 SECONDS (24.2-38.5)
[2020-05-05 07:09] LABS: ALBUMIN 2.1 GM/DL (3.2-5.2); ALT/SGPT 31 U/L (12-78); BILIRUBIN,DIRECT 0.2 MG/DL (0.0-0.2); BILIRUBIN,TOTAL 0.8 MG/DL (0.2-1.0); BLOOD UREA NITROGEN 19 MG/DL (7-18); CALCIUM LEVEL 8.5 MG/DL (8.8-10.2); CARBON DIOXIDE LEVEL 30 MEQ/L (21-32); CHLORIDE LEVEL 102 MEQ/L (98-107); CPK CREATINE PHOSPHOKINASE 14 U/L (26-192); CREATININE FOR GFR 0.56 MG/DL (0.55-1.30); FERRITIN 525 NG/ML (8-252); GLOMERULAR FILTRATION RATE > 60.0 (>32); GLUCOSE, FASTING 90 MG/DL (70-100); LDH LACTATE DEHYDROGENASE 215 U/L (84-246); MAGNESIUM LEVEL 1.9 MG/DL (1.8-2.4); NT-PRO BNP 606 PG/ML (<450); SODIUM LEVEL 138 MEQ/L (136-145); TOTAL PROTEIN 5.1 GM/DL (6.4-8.2); TROPONIN I < 0.02 NG/ML (< 0.10)
[2020-05-05] MEDS ORDERED: SENOKOT S TAB PO PRN (08:15)
[2020-05-05] MEDS ORDERED: MIRALAX *UNIT DOSE* 17GM PACKET PO PRN (08:15)
[2020-05-05 09:17] LABS: BASO % 0.3 % (0.0-1.0); EOS # 0.3 10^3/uL (0.0-0.5); EOS % 3.4 % (0.0-3.0); HEMATOCRIT 40.8 % (36.0-47.0); HEMOGLOBIN 12.9 g/dl (12.0-15.5); LYMPH # 2.1 10^3/uL (1.5-5.0); LYMPH % 22.5 % (24.0-44.0); MEAN CORPUSCULAR HEMOGLOBIN 30.2 pg (27.0-33.0); MEAN CORPUSCULAR HGB CONC 31.6 g/dl (32.0-36.5); MEAN CORPUSCULAR VOLUME 95.6 fl (80.0-96.0); MONO # 0.7 10^3/uL (0.0-0.8); MONO % 7.2 % (0.0-5.0); NEUTROPHILS # 6.1 10^3/uL (1.5-8.5); NEUTROPHILS % 65.6 % (36.0-66.0); PLATELET COUNT, AUTOMATED 283 10^3/uL (150-450); RED BLOOD COUNT 4.27 10^6/uL (4.00-5.40); WHITE BLOOD COUNT 9.2 10^3/uL (4.0-10.0)
[2020-05-05 09:26] LABS: C REACTIVE PROTEIN QUANTITATIV 1.33 MG/DL (0.00-0.30)
[2020-05-05] MEDS: AUGMENTIN 875 MG TAB PO SCH ×2 (10:02→21:21)
[2020-05-05] MEDS: APIXABAN 5 MG TAB (ELIQUIS) PO SCH ×2 (10:03→21:21)
[2020-05-05] MEDS: POTASSIUM CHLORIDE 10 MEQ SR TABLET PO SCH ×2 (10:04→21:21)
[2020-05-05] MEDS: oxyBUTYnin 5 MG TAB PO SCH ×2 (10:04→21:21)
[2020-05-05] MEDS: NYSTATIN 100,000 UNITS/GM TOPICAL PWD 15 GM TOP SCH (10:05)
--- NOTE | 2020-05-05 12:34 | IPNPDOC ---
Text Note Date of Service The patient was seen on 05/05/20. NOTE Subjective: Patient is an 84-year-old female with a PMHx of DVT (R leg), HTN, HLD, R breast ca s/p mastectomy, Multiple Sclerosis, nephrolithiasis, presented with SOB and weakness. COVID-19 positive on 04/30/20 (symptoms likely began on 04/27/20). Admitted with sepsis 2/2 covid-19 and possible superimposed bacterial pneumonia. Patient was seen and examined at the bedside. Currently patient seen sitting up at breakfast tray in place. Denies any significant shortness of breath has been experiencing a nonproductive cough. Denies any nausea, vomiting, abdominal pain, diarrhea. Objective: Vitals (See below) General: Lying in bed, no acute distress, comfortable, AAOx3 HEENT: NC, AT CVS: RRR, +S1S2 Lungs: Fair air entry b/l, -w/r/r Abdomen: Soft, ND, NT Extremities: Edema, - Calf tenderness Assessment and plan: Shortness of breath - likely 2/2 COVID19 infection, possibly 2/2 superimposed bacterial infection - Clinically is doing well - Currently on 1 L NC - Inflammatory markers improving - s/p Dexamethasone (Completed 5 day course) - s/p Levofloxacin; c/w Augmentin (Day #6); PCT trending down - Blood cultures 04/29: Negative at 5 days Normocytic anemia - Hgb relatively stable Chronic / recurrent UTI - Urine cx 04/29: Lactobacillus species, but patient is asymptomatic - Antibiotics for above adjusted RLE DVT - c/w Eliquis Multiple Sclerosis - stable, outpatient neurology follow up HTN - c/w losartan and Amlodipine Hx of fall - c/w PT and OT; recommending rehabilitation vs. home with 24/ coverage DVT prophylaxis - c/w full anticoagulation with Eliquis VS,Fishbone, I+O VS, Fishbone, I+O Laboratory Tests 05/05/20 06:06 Vital Signs Date Time Temp Pulse Resp B/P (MAP) Pulse Ox O2 Delivery O2 Flow Rate FiO2 05/05/20 09:00 63 89/55 05/05/20 04:00 97 Nasal Cannula 1.0 05/05/20 04:00 98.0 18 04/29/20 13:05 90 I&O- Last 24 Hours up to 6 AM 05/05/20 06:00 Intake Total 840 ml Output Total 800 ml Balance 40 ml PADDY ZELAYA MD May 05, 2020 12:34
[2020-05-05] MEDS ORDERED: NS 500 ML IV ONE (15:30)
[2020-05-05] MEDS ORDERED: NS 1,000 ML IV SCH (16:45)
[2020-05-05] MEDS: PRAVASTATIN 20 MG TAB PO SCH (21:21)
[2020-05-05] MEDS: LATANOPROST 0.005% OPHTH SOLN 2.5 ML OU SCH (21:22)
[2020-05-06 00:19] VITALS: BP 107/58; O2SAT 93
[2020-05-06 04:00] VITALS: BP 135/79; O2SAT 95
[2020-05-06 08:00] VITALS: O2SAT 96
[2020-05-06 08:30] VITALS: BP 125/69
[2020-05-06] MEDS: APIXABAN 5 MG TAB (ELIQUIS) PO SCH ×2 (09:04→22:00)
[2020-05-06] MEDS: NYSTATIN 100,000 UNITS/GM TOPICAL PWD 15 GM TOP SCH (09:04)
[2020-05-06] MEDS: POTASSIUM CHLORIDE 10 MEQ SR TABLET PO SCH ×2 (09:04→22:00)
[2020-05-06] MEDS: AUGMENTIN 875 MG TAB PO SCH ×2 (09:04→21:59)
[2020-05-06] MEDS: oxyBUTYnin 5 MG TAB PO SCH ×2 (09:04→22:00)
--- NOTE | 2020-05-06 11:06 | IPNPDOC ---
Text Note Date of Service The patient was seen on 05/06/20. NOTE Subjective: Patient is an 84-year-old female with a PMHx of DVT (R leg), HTN, HLD, R breast ca s/p mastectomy, Multiple Sclerosis, nephrolithiasis, presented with SOB and weakness. COVID-19 positive on 04/30/20 (symptoms likely began on 03/30 04/17). Admitted with sepsis 2/2 covid-19 and possible superimposed bacterial pneumonia. Patient was seen and examined at the bedside. Currently patient is seen with breakfast tray in front of her she denies any lightheadedness, dizziness, chest pain or palpitations. Denies any shortness of breath is not on any nasal cannula oxygen. Denies any significant cough. Denies any abdominal pain. Does report a bowel movement yesterday. Objective: Vitals (See below) General: Sitting up in bed, appears to be comfortable, is awake, alert and oriented 3 HEENT: NC, AT CVS: +S1S2 Lungs: Fair air entry b/l, auscultation is without any rhonchi, rales or wheezing Abdomen: Soft, nondistended and nontender Extremities: Lower tremors are without any edema, - Calf tenderness Assessment and plan: Shortness of breath - likely 2/2 COVID19 infection, possibly 2/2 superimposed bacterial infection - Denies any significant shortness of breath. Currently - Saturating well on room air - Inflammatory markers had shown improvement - Blood cultures 2/2: Negative at 5 days - s/p Dexamethasone (Completed 5 day course) - s/p Levofloxacin; c/w Augmentin (Day #7); PCT had trending down Normocytic anemia - Hgb relatively stable Chronic / recurrent UTI - Urine cx 2/2: Lactobacillus species, but patient is asymptomatic - Antibiotics for above adjusted RLE DVT - c/w Eliquis Multiple Sclerosis - stable, outpatient neurology follow up HTN - Patient was hypotensive on 05/05 - Currently patient is normotensive - s/p IV fluids - Discontinued losartan and Amlodipine Hx of fall - c/w PT and OT; recommending rehabilitation vs. home with 24/7 coverage DVT prophylaxis - c/w full anticoagulation with Eliquis Disposition: - Awaiting clearance from PT and OT - Will transition patient to ALC status today VS,Fishbone, I+O VS, Fishbone, I+O Vital Signs Date Time Temp Pulse Resp B/P (MAP) Pulse Ox O2 Delivery O2 Flow Rate FiO2 05/06/20 08:30 96.0 78 20 125/69 (87) 94 Room Air 05/05/20 04:00 1.0 I&O- Last 24 Hours up to 6 AM 05/06/20 06:00 Intake Total 1060 ml Output Total 400 ml Balance 660 ml PADDY ZELAYA MD May 06, 2020 11:06
[2020-05-06 20:00] VITALS: BP 135/65
[2020-05-06] MEDS: PRAVASTATIN 20 MG TAB PO SCH (21:59)
[2020-05-06] MEDS: LATANOPROST 0.005% OPHTH SOLN 2.5 ML OU SCH (22:04)
[2020-05-06 22:23] VITALS: O2SAT 95
[2020-05-07] VITALS: O2SAT 93
[2020-05-07 04:00] VITALS: BP 124/77; O2SAT 94
[2020-05-07 06:35] LABS: BASO % 0.2 % (0.0-1.0); EOS # 0.2 10^3/uL (0.0-0.5); EOS % 2.9 % (0.0-3.0); HEMATOCRIT 39.1 % (36.0-47.0); HEMOGLOBIN 12.3 g/dl (12.0-15.5); LYMPH # 1.8 10^3/uL (1.5-5.0); MEAN CORPUSCULAR HEMOGLOBIN 29.7 pg (27.0-33.0); MEAN CORPUSCULAR HGB CONC 31.5 g/dl (32.0-36.5); MEAN CORPUSCULAR VOLUME 94.4 fl (80.0-96.0); MONO # 0.5 10^3/uL (0.0-0.8); MONO % 6.1 % (0.0-5.0); NEUTROPHILS # 5.8 10^3/uL (1.5-8.5); PLATELET COUNT, AUTOMATED 261 10^3/uL (150-450); RED BLOOD COUNT 4.14 10^6/uL (4.00-5.40); WHITE BLOOD COUNT 8.4 10^3/uL (4.0-10.0)
[2020-05-07 07:05] LABS: BLOOD UREA NITROGEN 15 MG/DL (7-18); C REACTIVE PROTEIN QUANTITATIV 1.98 MG/DL (0.00-0.30); CALCIUM LEVEL 8.2 MG/DL (8.8-10.2); CARBON DIOXIDE LEVEL 30 MEQ/L (21-32); CHLORIDE LEVEL 104 MEQ/L (98-107); CREATININE FOR GFR 0.56 MG/DL (0.55-1.30); GLOMERULAR FILTRATION RATE > 60.0 (>32); GLUCOSE, FASTING 91 MG/DL (70-100); MAGNESIUM LEVEL 2.1 MG/DL (1.8-2.4); POTASSIUM SERUM 4.7 MEQ/L (3.5-5.1); SODIUM LEVEL 139 MEQ/L (136-145)
[2020-05-07] MEDS: oxyBUTYnin 5 MG TAB PO SCH ×2 (08:48→20:44)
[2020-05-07] MEDS: POTASSIUM CHLORIDE 10 MEQ SR TABLET PO SCH ×2 (08:48→20:45)
[2020-05-07] MEDS: APIXABAN 5 MG TAB (ELIQUIS) PO SCH ×2 (08:49→20:45)
[2020-05-07] MEDS: AUGMENTIN 875 MG TAB PO SCH (08:49)
[2020-05-07] MEDS: NYSTATIN 100,000 UNITS/GM TOPICAL PWD 15 GM TOP SCH (08:50)
[2020-05-07 20:00] VITALS: O2SAT 93
[2020-05-07] MEDS: PRAVASTATIN 20 MG TAB PO SCH (20:44)
[2020-05-07] MEDS: LATANOPROST 0.005% OPHTH SOLN 2.5 ML OU SCH (20:45)
[2020-05-08] VITALS: O2SAT 95
[2020-05-08 04:00] VITALS: O2SAT 95
[2020-05-08 04:32] VITALS: BP 138/79
[2020-05-08 08:00] VITALS: O2SAT 95
[2020-05-08] MEDS: NYSTATIN 100,000 UNITS/GM TOPICAL PWD 15 GM TOP SCH (08:17)
[2020-05-08] MEDS: APIXABAN 5 MG TAB (ELIQUIS) PO SCH (08:17)
[2020-05-08] MEDS: oxyBUTYnin 5 MG TAB PO SCH (08:17)
[2020-05-08] MEDS: POTASSIUM CHLORIDE 10 MEQ SR TABLET PO SCH (08:17)
--- NOTE | 2020-05-08 12:27 | DS.PDOC ---
Discharge Summary General Date of Admission Apr 29, 2020 at 16:37 Date of Discharge 05/08/2020 Discharge Summary PROCEDURES PERFORMED DURING STAY: [None]. ADMITTING DIAGNOSES / DISCHARGE DIAGNOSES: Shortness of breath - likely 2/2 COVID19 infection, possibly 2/2 superimposed bacterial infection Normocytic anemia Chronic / recurrent UTI RLE DVT Multiple Sclerosis HTN Hx of fall DVT prophylaxis COMPLICATIONS/CHIEF COMPLAINT: Weakness HISTORY OF PRESENT ILLNESS: Patient is an 84-year-old female with a PMHx of DVT (R leg), HTN, HLD, R breast ca s/p mastectomy, Multiple Sclerosis, nephrolithiasis, presented with SOB and weakness. COVID-19 positive on 04/30/20 (symptoms likely began on 04/27/20). Admitted with sepsis 2/2 covid-19 and possible superimposed bacterial pneumonia. HOSPITAL COURSE: Shortness of breath - likely 2/2 COVID19 infection, possibly 2/2 superimposed bacterial infection - No chest pain / SOB / Significant cough noted - Remains on room air and saturating well - Inflammatory markers had shown improvement - Blood cultures 2/2: Negative at 5 days - s/p Dexamethasone (Completed 5 day course) - s/p Levofloxacin and Augmentin Normocytic anemia - Hemoglobin has remained stable Chronic / recurrent UTI - Urine culture 04/29: Lactobacillus species, but patient is asymptomatic - s/p Antibiotics RLE DVT - c/w Eliquis Multiple Sclerosis - Stable - Will have outpatient follow up with Neurology as needed HTN - Patient was hypotensive on 05/05 - BP currently is well controlled - s/p IV fluids - s/p Losartan and Amlodipine Hx of fall - c/w PT and OT; recommending rehabilitation - Will be transitioned to [facility] DVT prophylaxis - c/w full anticoagulation with Eliquis DISCHARGE MEDICATIONS: Please see below. ALLERGIES: Please see below. PHYSICAL EXAMINATION ON DISCHARGE: Vitals (See below) General: Patient is laying in bed and appears very comfortable. She is awake, alert and oriented to person, place and time HEENT: NC, AT CVS: +S1S2 Lungs: There appears to be fair air entry bilaterally without any appreciated, wheezing or rhonchi. Very faint crackles heard at bases Abdomen: Abdomen is without any distention or tenderness Extremities: Trace edema is noted of lower extremities, - Calf tenderness LABORATORY DATA: Please see below. ACTIVITY: [As tolerated]. DISCHARGE PLAN: Please follow-up with primary care provider within the next 7 days Remain compliant with treatment plan and medications Return to the ER if you experience any problems DISPOSITION: [facility] / Rehab DISCHARGE CONDITION: [Stable]. TIME SPENT ON DISCHARGE: 35 minutes Vital Signs/I&Os Vital Signs Date Time Temp Pulse Resp B/P (MAP) Pulse Ox O2 Delivery O2 Flow Rate FiO2 05/08/20 08:00 95 Room Air 05/08/20 04:32 96.5 68 18 138/79 (98) 05/05/20 04:00 1.0 I&O- Last 24 Hours up to 6 AM 05/08/20 06:00 Intake Total 630 ml Output Total 900 ml Balance -270 ml Microbiology Microbiology 04/29/20 Urine Culture - Final, Complete Lactobacillus Species 04/29/20 Blood Culture - Final, Complete NO GROWTH AFTER 5 DAYS 04/29/20 Blood Culture - Final, Complete NO GROWTH AFTER 5 DAYS Discharge Medications Scheduled Apixaban (Eliquis) 5 Mg Tablet, 5 MG PO BID, (Reported) Cholecalciferol (Vitamin D3) (Vitamin D3) 1,000 Unit Tablet, 1,000 UNITS PO DAILY, (Reported) Dorzolamide/Timolol/Pf (Cosopt Pf Eye Drops) 1 Each Droperette, 1 DROP OU BID, (Reported) L.acidoph/L.bulg/B.bif/S.therm (Bacid Caplet) 1 Each Tablet, 1 TAB PO QID, (Reported) Oxybutynin Chloride (Oxybutynin Chloride) 5 Mg Tablet, 5 MG PO BID, (Reported) Pravastatin Sodium (Pravastatin Sodium) 20 Mg Tablet, 20 MG PO QHS, (Reported) Travoprost (Travatan Z) 0.004% 2.5ML Drops, 1 DROP OU QHS, (Reported) Allergies Coded Allergies: No Known Allergies (Verified , 02/13/20) PADDY ZELAYA MD May 08, 2020 10:28
== END 2020-05-08 12:55 | DRG 871 ==
LOC: EDBD 12:43 → M ED 12:43 → M ED INP 16:37 → M 4MAIN 18:45
PROVIDERS: ADMIT Internal Medicine; ATTEND Internal Medicine
DX: A41.9 Sepsis, unspecified organism (principal); U07.1 COVID-19; J12.82 Pneumonia due to coronavirus disease 2019; J15.9 Unspecified bacterial pneumonia; G35 Multiple sclerosis; I10 Essential (primary) hypertension; E78.5 Hyperlipidemia, unspecified; M81.0 Age-related osteoporosis without current pathological fracture; D64.9 Anemia, unspecified; N31.9 Neuromuscular dysfunction of bladder, unspecified; Z85.3 Personal history of malignant neoplasm of breast; Z90.11 Acquired absence of right breast and nipple; Z86.718 Personal history of other venous thrombosis and embolism; Z79.01 Long term (current) use of anticoagulants; Z79.899 Other long term (current) drug therapy; Z90.49 Acquired absence of other specified parts of digestive tract